=== PATIENT | male | born 1950 | race Caucasian/White ===

== ENCOUNTER 2020-08-23 08:18 | Outpatient (CLI) | payer OTHER, SELFPAY ==
--- NOTE | 2020-08-23 08:22 | NM_ITS ---
WS: [id number] NUCLEAR MEDICINE WHOLE BODY BONE SCAN HISTORY: PROSTATE CANCER COMPARISON: None available. TECHNIQUE: The patient was injected with 25.6 mCi of Technetium 99m HDP and serial whole-body scintig shayy have been performed with anterior and posterior images. Mild degenerative changes at the before meals and glenohumeral joints and the knee joints. There are no areas of moderate uptake within the ribs or spine to suggest metastatic disease. Focal area of mor e intense uptake in the RIGHT C7 facet joint is also probably degenerative. Normal soft tissue uptake . Both kidneys are identified. NM/NM bone scan whole body* [id number] IMPRESSION: No evidence for metastatic bone disease.
== END 2020-08-23 08:19 | disposition home or self-care (01) ==
LOC: RAD 08:20
PROVIDERS: PCP Family Medicine; Visit Provider Internal Medicine Hematology & Oncology
DX: C61 Malignant neoplasm of prostate (principal)
CPT/HCPCS: 78306; A9561

== ENCOUNTER 2020-08-23 11:00 | Outpatient (RCR) | payer OTHER, SELFPAY ==
[2020-08-09 12:37] LABS: Basophils % 0.4 %; Eosinophils # 0.4 10^3/uL (0.0-0.8); Eosinophils % 4.7 %; Hematocrit 46.4 % (42.0-52.0); Hemoglobin 16.3 g/dL (11.7-16.6); Lymphocytes # 1.8 10^3/uL (0.8-4.8); Mean Corpuscular HGB Conc 35.1 g/dL (30.0-36.0); Mean Corpuscular Hemoglobin 32.7 pg (28.0-34.0); Mean Corpuscular Volume 93.2 fL (80-94); Mean Platelet Volume 10.6 fL (7.4-10.4); Monocytes # 0.7 10^3/uL (0.2-0.9); Monocytes % 8.7 %; Neutrophils # 4.91 10^3/uL (1.8-7.7); Neutrophils % 62.8 %; Nucleated Red Blood Cells % 0 %; Platelet Count 241 10^3/cmm (130-400); Red Blood Count 4.98 10^6/uL (4.1-5.3); Red Cell Distribution Width 12.2 % (12.1-15.1); White Blood Count 7.8 10^3/uL (4.0-10.0)
[2020-08-09 13:02] LABS: Testosterone Total 642.3 ng/dL (193-740)
[2020-08-09 13:13] LABS: Alanine Aminotransferase 221 U/L (0-41); Albumin Level 4.5 g/dL (3.5-5.2); Alkaline Phosphatase 80 IU/L (40-130); Anion Gap 13.7 (5-19); Aspartate Amino Transferase 123 U/L (0-40); Blood Urea Nitrogen 10 mg/dL (8-23); Carbon Dioxide 29 mmol/L (22-29); Chloride 98 mmol/L (98-107); Globulin 2.8 g/dL (1.3-4.6); Glucose 155 mg/dL (65-115); Osmolality Calculated 286 mOsm/kg (285-295); Potassium 3.7 mmol/L (3.5-5.1); Sodium 137 mmol/L (136-145); Total Bilirubin 0.9 mg/dL (0.15-1.2); Total Protein 7.3 g/dL (6.6-8.7)
--- NOTE | 2020-08-09 15:19 | ONC CON_ITS ---
Dr. Aden New Patient Note Patient: Barrera Menendez Unit #: [id number]: 1950 Dicatated By: Ada Aden M.D.Date of Visit: Aug 09, 2020 Onc MED New Patient/Consult Referring Physician: Stephen Marin History of Present Illness: Mr. Barrera Menendez, is a 70-year-old gentleman with a history of mildly elevated PSA in the range of 4+ eventually underwent ultrasound-guided prostate biopsy on June 04, 2020 which showed high-grade prostatic acinar adenocarcinoma Van score 9 group grade 5, 3 cores from left prostate base showed 5 to 80% involvement Van score 4+5 and 3 cores from left mid gland shows 60 to 90% involvement with Fatmata score 4+5 again group grade 5 and 2 cores from right apex shows 5 to 50% involvement with adenocarcinoma, Fatmata score 4+5 group grade 5 e.g. T2c, NX, very high risk (Fatmata score 4+5, group grade 5 in 8 cores) CT scan of abdomen pelvis was done on July 27, 2020 which showed no evidence of retroperitoneal lymphadenopathy and no other abnormality seen Patient denies any history of hematuria except one episode after the prostate biopsy, no dysuria, no bony pains, no weight loss. Patient has history of heavy alcohol use but quit drinking in 1993 now occasional drinker. No history of smoking. No family history of prostate cancer but patient has 2 boys, healthy otherwise. Past Medical History: There is no documented medical history. Past Surgical History: Mr. Menendez's surgical/procedural history consists of right leg surgery. Medications: amLODIPine Besylate 1 Tablet (of 10 mg) Oral daily, Aspirin 1 Tablet (of 325 mg) Oral daily, Atenolol 1 Tablet (of 100 mg) Oral daily, hydroCHLOROthiazide 0.5 Tablet (of 25 mg) Oral daily, Losartan Potassium 1 Tablet (of 100 mg) Oral daily Allergies: Colestipol HCl, Gemfibrozil, Lisinopril, Lovastatin, Pravastatin Sodium, and Simvastatin. Social History: Mr. Menendez is . Mr. Menendez has never smoked. He has no history of drinking. Family History: There is no documented family history. Review Of Symptoms: Constitutional - Appetite is good and weight is stable. No fever, night sweats, or hot flashes. Energy level, ENMT - Positive for sinus congestion/drainage. No mouth sores. No sore throat or difficulty swallowing, Hematologic/Lymphatic - Positive for easy bruising and bleeding, Respiratory - No shortness of breath. Positive for cough. No pleuritic pain or hemoptysis, Cardiovascular - No angina pain. No palpitations, Gastrointestinal - No nausea or vomiting. No heartburn or acid reflux. No diarrhea or constipation. No blood in the stool or black stools, Genitourinary (M) - No dysuria or hematuria. Positive for urinary frequency. No urgency or incontinence, Musculoskeletal - No joint or bone pain, Neurologic - No headache or dizziness. No numbness or tingling. No other focal neurologic symptoms, Psychiatric - No anxiety or depression. No insomnia. Vital Signs: Performed on Aug 09, 2020 10:56: 0, 34.18 (HIGH), 2.25 sq.m, 70 in, 97 %, 62 /min, 18 /min, 198/96 mm(hg) (HIGH), 97.4 F (LOW), and 238.2 lbs (HIGH). Performance Status: 0 - Fully active, able to carry on all predisease activities without restrictions. (ECOG) Physical Examination: ENMT - No mouth sores, no thrush, no jaundice, Respiratory - Lungs are clear to auscultation, Cardiovascular - Regular rate and rhythm of heart, Abdomen - Soft, bowel sounds present, Extremities - No visible edema or rash. Lab/Imaging: Most recent lab results are not available for this patient. Impression: Very high risk prostate cancer per ultrasound-guided prostate gland biopsy done on June 04, 2020 which showed prostatic acinar adenocarcinoma involving left base, 3 cores, Van score 4+5 group grade 5. Left middle lobe, 3 cores Fatmata score 4+5, group grade 5. Right apex 2 cores, Fatmata score 4+5 group grade 5 e.g. T2c, very high risk Van score 9 with a group grade 5 and 8 cores PSA at time of diagnosis 4.61 CT scan of abdomen done on July 27, 2020 showed no evidence of pelvic lymphadenopathy Plan: Discussed with patient regarding his disease status and treatment options, being very high risk group e.g. Fatmata score 9, and grade group 5 and more than 4 cores and bilateral prostate gland involvement T2c, he would be a candidate for neoadjuvant therapy with ADT with Casodex/Zoladex followed by concurrent radiation therapy followed by Zoladex for 2 to 3 years and if tolerated, would consider adding Taxotere after concurrent ADT/radiation is completed. All the side effects possible benefits associated with ADT were discussed including but not limited to hot flashes, mood swings, gynecomastia, generalized weakness and fatigue, bone demineralization, fluid retention, weight gain were mentioned further teaching will done by chemotherapy nurse. We will give him prescription for Casodex 50 mg p.o. daily which he will continue in neoadjuvant fashion as well as during radiation therapy and will also obtain approval from insurance for Zoladex which he will get every 3 months. In the meantime we will also obtain bone scan to complete staging work-up and consider next gen sequencing. In the meantime, we will obtain baseline testosterone, PSA and CBC and CMP and then patient to return to clinic in 1 month after Zoladex injection with CBC CMP and PSA Signed By: Ada Aden M.D. <<Signature on File>>
--- NOTE | 2020-08-10 13:48 | N.ONRAD NP_ITS ---
Radiation Oncology Consultation Patient Name: Barrera Menendez Date of : 1950 Date of Service: 08/10/2020 Attending Physician: Reji Vo M.D. Barrera Menendez was seen in consultation this afternoon at the request of Dino Benton M.D. for consideration of prostate radiotherapy for the management of his recently diagnosed prostate cancer. He initially was identified to have an elevated PSA level (4.6 ng/mL) in January 2020. He was referred to the [facility] Department of Urology (medical records were requested and personally reviewed). A free PSA was within normal limits (14%) and a digital rectal exam did not identify prostate induration or nodularities. A transrectal ultrasound-guided biopsy of the prostate was performed on May 31, 2020. The prostatic volume was 28g without suspicious hypoechogenicity. Pathology diagnosed an acinar adenocarcinoma of the prostate gland (Fatmata score 4+5 involving the left base, left mid gland, and right apex; malignancy comprised 8 of 20 cores). An abdominopelvic CT ordered on July 27, 2019 failed to demonstrate pelvic lymphadenopathy or metastatic disease. A PSA and testosterone levels (independently canvassed in [employer]) obtained on August 09, 2020 were 6.2 ng/mL and 642.3 ng/dL. The patient presents for radiotherapeutic options. I discussed with Mr. Menendez the AJCC clinical stage IIIC (T1CN0) very high-risk stratification corresponding to his prostate cancer. I also reviewed the National Comprehensive Cancer Network Guidelines recommending androgen deprivation therapy, external beam radiotherapy with or without brachytherapy and consideration for docetaxel chemotherapy. The admonition by the NCCN was established by the RTOG 0521 trial that enrolled patients with high-risk non-metastatic prostate cancer to receive androgen suppression plus radiotherapy with or without adjuvant docetaxel chemotherapy. This study demonstrated improved overall survival and disease-free survival in the chemotherapy arm. I also reviewed GETUG???12 study which also enrolled high-risk localized prostate cancer patients to androgen suppression and docetaxel chemotherapy with estramustine or androgen suppression alone. Updated results published in abstract form continued to demonstrate a relapse free survival with the administration of chemotherapy. Prior to commencement of radiotherapy, neoadjuvant total androgen suppression (Zoladex and Casodex) will be prescribed. I anticipate a 7-1/2 week course of pelvic and prostate radiotherapy. Prior to implementation of treatment, a radiotherapy planning CT scanner will be obtained to delineate the target volumes. I also discussed potential adverse events related to pelvic radiotherapy. The patient has verbalized understanding would like to proceed as advised. Signed by: Dr. Reji Vo 10/10/2020 8:48:46 AM
== END 2020-09-03 23:59 | disposition home or self-care (01) ==
LOC: RAD 11:00
PROVIDERS: Internal Medicine Hematology & Oncology; Family Provider Nurse Practitioner Family; PCP Family Medicine; Visit Provider Radiology Radiation Oncology
DX: C61 Malignant neoplasm of prostate (principal)
CPT/HCPCS: 80053; 84153; 84403; 85025; 99205; 99214

== ENCOUNTER 2020-09-14 09:40 | Outpatient (CLI) | payer OTHER, SELFPAY ==
[2020-09-14 10:35] LABS: Basophils % 0.2 %; Eosinophils # 0.4 10^3/uL (0.0-0.8); Hemoglobin 15.8 g/dL (11.7-16.6); Lymphocytes # 1.4 10^3/uL (0.8-4.8); Lymphocytes % 22.6 %; Mean Corpuscular HGB Conc 35.9 g/dL (30.0-36.0); Mean Corpuscular Hemoglobin 32.7 pg (28.0-34.0); Mean Corpuscular Volume 91.1 fL (80-94); Mean Platelet Volume 11.1 fL (7.4-10.4); Monocytes # 0.6 10^3/uL (0.2-0.9); Monocytes % 9.1 %; Neutrophils # 3.72 10^3/uL (1.8-7.7); Neutrophils % 61.8 %; Nucleated Red Blood Cells % 0 %; Platelet Count 210 10^3/cmm (130-400); Red Blood Count 4.83 10^6/uL (4.1-5.3); Red Cell Distribution Width 11.7 % (12.1-15.1)
[2020-09-14 11:21] LABS: Testosterone Total 801.9 ng/dL (193-740)
[2020-09-14 11:33] LABS: Alanine Aminotransferase 355 U/L (0-41); Albumin Level 4.4 g/dL (3.5-5.2); Alkaline Phosphatase 91 IU/L (40-130); Aspartate Amino Transferase 159 U/L (0-40); Blood Urea Nitrogen 10 mg/dL (8-23); Calcium 8.9 mg/dL (8.5-10.5); Carbon Dioxide 24 mmol/L (22-29); Chloride 101 mmol/L (98-107); Globulin 2.7 g/dL (1.3-4.6); Glucose 166 mg/dL (65-115); Osmolality Calculated 285 mOsm/kg (285-295); Sodium 136 mmol/L (136-145); Total Bilirubin 0.7 mg/dL (0.15-1.2); Total Protein 7.1 g/dL (6.6-8.7)
[2020-09-14 11:35] LABS: Anion Gap 14.8 (5-19); Potassium 3.8 mmol/L (3.5-5.1)
[2020-09-14] MEDS: lidocaine 1% INJ 20 mL INJECTION (12:20)
[2020-09-14] MEDS: goserelin acetate 10.8 mg Implant IM (12:30)
--- NOTE | 2020-09-27 09:16 | ONC FU_ITS ---
[facility] Patient Note Patient: Barrera Menendez Unit #: [id number]: 1950 Dictated By: Familia PedrazaDate of Visit: Sep 14, 2020 Onc MED Follow-Up/Prog Note Chief Complaint: Prostate cancer History of Present Illness: Mr. Menendez is a 70-year-old gentleman with a history of mildly elevated PSA in the range of 4+. He eventually underwent ultrasound-guided prostate biopsy on June 04, 2020 which showed high-grade prostatic acinar adenocarcinoma Fatmata score 9, group grade 5. Three cores from left prostate base showed 5 to 80% involvement- [place] score 4+5 and 3 cores from left mid gland shows 60 to 90% involvement with Fatmata score 4+5 again group grade 5. Two cores from right apex shows 5 to 50% involvement with adenocarcinoma, [place] score 4+5 group grade 5 e.g. T2c, NX, very high risk ([place] score 4+5, group grade 5 in [address] CT scan of abdomen pelvis was done on July 27, 2020 which showed no evidence of retroperitoneal lymphadenopathy and no other abnormality seen. Mr Menendez denies any history of hematuria except one episode after the prostate biopsy, no dysuria, no bony pains, no weight loss. Patient has history of heavy alcohol use but quit drinking in 1993 now occasional drinker. No history of smoking. No family history of prostate cancer but patient has 2 boys, healthy otherwise. Mr Menendez follows with Dr Aden for management of his prostate cancer. He has been advised to pursue androgen deprivation with Casodex and Zoladex. He is here today for his first dose of Zoladex. He states he has been on the Casodex now for 2 weeks. He denies any new concerns. He denies any hot flashes. He denies any nausea or vomiting. His activity is good. His energy is fair and his appetite is good. He denies any diarrhea or constipation. He has had no neuropathy symptoms. He denies any bowel or bladder changes. He has had no hematuria. He denies any shortness of breath or cough. His ECOG is 1. Past Medical History: Hypertension Past Surgical History: Colonoscopy Right leg surgery Allergies: Colestipol HCl, Gemfibrozil, Lisinopril, Lovastatin, Pravastatin Sodium, and Simvastatin. Medications: amLODIPine Besylate 1 Tablet (of 10 mg) Oral daily Aspirin 1 Tablet (of 325 mg) Oral daily Atenolol 1 Tablet (of 100 mg) Oral daily hydroCHLOROthiazide 0.5 Tablet (of 25 mg) Oral daily Losartan Potassium 1 Tablet (of 100 mg) Oral daily Family History: Social History: Mr. Menendez is . Mr. Menendez has never smoked. He quit drinking 10 years ago. Review Of Symptoms: Constitutional Denies fevers, chills, night sweats, excessive fatigue or weight loss. Allergic/Immunologic No reactions. Eyes Denies significant visual changes. No diplopia. No amaurosis. ENMT Denies changes in hearing, sore throat, mouth sores, difficulty or changes in swallowing ability, and/or sinus drainage. Hematologic/Lymphatic Denies easy bruising or bleeding. The patient denies any tender or palpable lymph nodes. Respiratory Denies dyspnea on exertion, chest pain, cough or hemoptysis. Denies orthopnea. Cardiovascular Denies anginal chest pain, palpitations or orthopnea. Gastrointestinal Denies nausea, vomiting, diarrhea, GI bleeding, or constipation. Denies change in bowel habits and/or stool color, no heartburn or early satiety. Genitourinary (M) Denies hematuria, dysuria, increased frequency, urgency, hesitancy or incontinence. Musculoskeletal Denies joint pain, swelling or redness. No decreased range of motion. Integumentary Denies chronic rashes, inflammation, ulcerations or skin changes. Neurologic Denies headache, blurred vision, and no areas of focal weakness or numbness. Normal gait. No sensory problems. Psychiatric Denies insomnia, depression, keily or mood swings. Vital Signs: Performed on Sep 14, 2020 11:48 Height - 70.00 in Weight - 242.4 lbs (HIGH) BSA - 2.27 sq.m BMI - 34.78 (HIGH) Temperature - 97.3 F (LOW) Pulse - 55 /min (LOW) Respiration - 18 /min BP - 157/89 mm(hg) (HIGH) O2 Sat - 97 % Pain - 0,0 - Fully active, able to carry on all predisease activities without restrictions. (ECOG) Physical Examination: Constitutional Alert, oriented, no acute distress. Skin pink, warm and dry. Head Normocephalic; atraumatic. Eyes Conjunctivae and sclerae are clear and without icterus. Pupils are reactive and equal. Neck Supple without masses or thyromegaly. No jugular venous distension. Hematologic/Lymphatic No petechiae or purpura. No tender or palpable lymph nodes in the cervical or supraclavicular areas. Respiratory Lungs are clear to auscultation without rhonchi or wheezing. Cardiovascular Regular rate and rhythm of heart without murmurs,clicks, gallops or rubs. Abdomen Non-tender, non-distended, no masses or ascites. Good bowel sounds noted in all quads. No guarding or rebound tenderness. No pulsatile masses. Back/Spine Non-tender to palpation. Extremities No visible deformities, no cyanosis, clubbing or edema. Musculoskeletal No tenderness or swelling, normal range of motion without obvious weakness. Integumentary No rashes or lesions. Neurologic No sensory or motor deficits, normal cerebellar function, normal gait. Psychiatric Alert and oriented times three. Coherent speech. Verbalizes understanding of our discussions today. Laboratory:Test performed on Sep 14, 2020 09:59 Sodium 136 mmol/L Testosterone, Total 801.9 ng/dL Potassium 3.8 mmol/L Chloride 101 mmol/L CO2 24 mmol/L Anion Gap 14.8 BUN 10 mg/dL Creatinine 1.2 mg/dL Cr Clearance (Est) 87.8100 mL/min Glucose 166 mg/dL Osmolality - Calculated 285 mOsm/kg Calcium 8.9 mg/dL Protein, Total 7.1 g/dL Albumin 4.4 g/dL Globulin 2.7 g/dL Bilirubin, Total 0.7 mg/dL ALT (SGPT) 355 U/L AST (SGOT) 159 U/L Alkaline Phosphatase 91 IU/L WBC 6.0 10 3/uL RBC 4.83 10 6/uL HGB 15.8 g/dL HCT 44.0 % MCV 91.1 fL MCH 32.7 pg MCHC 35.9 g/dL RDW 11.7 % Platelet Count 210 10 3/cmm MPV 11.1 fL Neutrophils 3.72 10 3/uL Lymphocytes 1.4 10 3/uL Monocytes 0.6 10 3/uL Eosinophils 0.4 10 3/uL Basophils 0.0 10 3/uL Neutrophil % 61.8 % Lymphocyte % 22.6 % Monocyte % 9.1 % Eosinophil % 6.0 % Basophils % 0.2 % NRBC % 0 % PSA 3.140 ng/mL Impression: Very high risk prostate cancer per ultrasound-guided prostate gland biopsy done on June 04, 2020 which showed prostatic acinar adenocarcinoma involving left base, 3 cores, Fatmata score 4+5 group grade 5. Left middle lobe, 3 cores [place] score 4+5, group grade 5. Right apex 2 cores, Fatmata score 4+5 group grade 5 e.g. T2c, very high risk [place] score 9 with a group grade 5 and 8 cores PSA at time of diagnosis 4.61 CT scan of abdomen done on July 27, 2020 showed no evidence of pelvic lymphadenopathy Plan: PROBLEMS ADDRESSED TODAY 1. High risk prostate cancer A. Dr Aden discussed with Mr Menendez his disease status and treatment options. Being very high risk group e.g. [place] score 9, and grade group 5 and more than 4 cores and bilateral prostate gland involvement T2c, he would be a candidate for neoadjuvant therapy with ADT with Casodex/Zoladex followed by concurrent radiation therapy followed by Zoladex for 2 to 3 years and if tolerated, would consider adding Taxotere after concurrent ADT/radiation is completed. He did have a negative bone scan in August 2020. B Dr Aden did give him prescription for Casodex 50 mg p.o. daily which he will continue in neoadjuvant fashion as well as during radiation therapy. C. He will begin Zoladex today as he has been on the Casodex for 2 weeks now. D. In the meantime we will also consider next gen sequencing per Dr Aden's last office note. E. Today's labs reviewed in detail and discussed with . Mrs. Menendez and a copy was given to him. WBC 6.0, hemoglobin 15.8, platelets 210,000 ANC is 3720. Potassium 3.8 creatinine 1.2 ALT is 355 AST is 159 alk phos 91 PSA is 3.14 compared to 6.22 on August 09, 2020. His LFTs have been intermittently elevated. 2. Followup Plan A. We will plan to see him back in [address] Aden's orders with CBC CMP PSA and testosterone???total. B. Mr Menendez was instructed to contact us in the interim should questions or problems arise. C. Total time spent in review of patient's records prior to his visit, Discussion of the current treatment plan, side effect identification and management as well as post visit documentation was 58 minutes. D. The patient and family were informed of the treatment plan and specific drugs were discussed. We also discussed how the medication works and identified common side effects including hot flashes, elevated triglycerides, headache, dizziness, hypertension, urticaria, flushing, fatigue, nausea, diarrhea, constipation, joint/muscle pain, heartburn, palpitations, alopecia is reported at < 5%. We discussed that they certainly need to let us know before taking any antioxidants or herbal or further dietary supplements, as we are unsure of how these agents react with the treatment plan and we request that they avoid these products for now. They are informed that it is okay to take the multivitamins. They verbally state that they understand to take all medications as directed by the provider unless otherwise indicated. Instructions for oral care with baking soda and salt water rinses as well as a guide for use of [id number] medication were provided with the treatment plan. They were given specific drug information. They have no questions and verbalized understanding and are willing to proceed with treatment at this time. Signed By: Familia Pedraza-, CNP Ada Aden MD <<Signature on File>>
== END 2020-09-14 09:41 | disposition home or self-care (01) ==
LOC: ONCMED 09:41
PROVIDERS: Internal Medicine Hematology & Oncology; Family Provider Nurse Practitioner Family; PCP Family Medicine; Visit Provider Nurse Practitioner
DX: C61 Malignant neoplasm of prostate (principal); R79.89 Other specified abnormal findings of blood chemistry; Z79.818 Long term (current) use of other agents affecting estrogen receptors and estrogen levels; Z79.899 Other long term (current) drug therapy
CPT/HCPCS: 80053; 84153; 84403; 85025; 96372; 96402; 99215; J9202

== ENCOUNTER 2020-09-27 05:39 | Outpatient (CLI) | payer OTHER, SELFPAY ==
--- NOTE | 2020-09-27 09:42 | ONC FU_ITS ---
[facility] Patient Note Patient: Barrera Menendez Unit #: [id number]: 1950 Dictated By: Familia PedrazaDate of Visit: Sep 27, 2020 Onc MED Follow-Up/Prog Note Chief Complaint: Prostate cancer History of Present Illness: Mr. Menendez is a 70-year-old gentleman with a history of mildly elevated PSA in the range of 4+. He eventually underwent ultrasound-guided prostate biopsy on June 04, 2020 which showed high-grade prostatic acinar adenocarcinoma Fatmata score 9, group grade 5. Three cores from left prostate base showed 5 to 80% involvement- Fountain score 4+5 and 3 cores from left mid gland shows 60 to 90% involvement with Fatmata score 4+5 again group grade 5. Two cores from right apex shows 5 to 50% involvement with adenocarcinoma, Fountain score 4+5 group grade 5 e.g. T2c, NX, very high risk (Fountain score 4+5, group grade 5 in [address] scan of abdomen pelvis was done on July 27, 2020 which showed no evidence of retroperitoneal lymphadenopathy and no other abnormality seen. Mr Menendez denies any history of hematuria except one episode after the prostate biopsy, no dysuria, no bony pains, no weight loss. Patient has history of heavy alcohol use but quit drinking in 1993 now occasional drinker. No history of smoking. No family history of prostate cancer but patient has 2 boys, healthy otherwise. Mr Menendez follows with Dr Aden for management of his prostate cancer. He has been advised to pursue androgen deprivation with Casodex and Zoladex. He began Casodex 50 mg around August 31, 2020 and his first dose of Zoladex was on September 14, 2020. Mr. Menendez is here today for a unscheduled visit. Mrs. Menendez called yesterday saying that since he started the Casodex and Zoladex he had a knot develop on the back of his head . They are unable to see his primary care is at his [place] in [place] and they cannot get him in for quite some time . He complained that the spot was very tender making the back of his head sore. And requested to be seen. He is here this morning. He denies any fever or chills. He has had no trauma. He states that discomfort came up all of a sudden. The back of his head has been tender and somewhat down in his neck. He denies any trouble swallowing. He is had no other lymphadenopathy. He denies any nausea or vomiting. He is tolerating the Casodex well. He denies any hot flashes. States he had about 2 days of hot flashes and this resolved and has not recurred. He has no other concerns. His ECOG is 0. Past Medical History: Hypertension Past Surgical History: Colonoscopy Right leg surgery Allergies: Colestipol HCl, Gemfibrozil, Lisinopril, Lovastatin, Pravastatin Sodium, and Simvastatin. Medications: amLODIPine Besylate 1 Tablet (of 10 mg) Oral daily Aspirin 1 Tablet (of 325 mg) Oral daily Atenolol 1 Tablet (of 100 mg) Oral daily hydroCHLOROthiazide 0.5 Tablet (of 25 mg) Oral daily Losartan Potassium 1 Tablet (of 100 mg) Oral daily Family History: Social History: Mr. Menendez is . Mr. Menendez has never smoked. He quit drinking 10 years ago. Review Of Symptoms: Constitutional Denies fevers, chills, night sweats, excessive fatigue or weight loss. Allergic/Immunologic No reactions. Eyes Denies significant visual changes. No diplopia. No amaurosis. ENMT Denies changes in hearing, sore throat, mouth sores, difficulty or changes in swallowing ability, and/or sinus drainage. Hematologic/Lymphatic Denies easy bruising or bleeding. The patient denies any tender or palpable lymph nodes. Respiratory Denies dyspnea on exertion, chest pain, cough or hemoptysis. Denies orthopnea. Cardiovascular Denies anginal chest pain, palpitations or orthopnea. Gastrointestinal Denies nausea, vomiting, diarrhea, GI bleeding, or constipation. Denies change in bowel habits and/or stool color, no heartburn or early satiety. Genitourinary (M) Denies hematuria, dysuria, increased frequency, urgency, hesitancy or incontinence. Musculoskeletal Denies joint pain, swelling or redness. No decreased range of motion. Integumentary Denies chronic rashes, inflammation, ulcerations or skin changes. Neurologic Denies headache, blurred vision, and no areas of focal weakness or numbness. Normal gait. No sensory problems. Psychiatric Denies insomnia, depression, keily or mood swings. Vital Signs: Performed on Sep 27, 2020 08:56 Height - 70.00 in Weight - 242.6 lbs (HIGH) BSA - 2.27 sq.m BMI - 34.81 (HIGH) Temperature - 97.4 F (LOW) Pulse - 67 /min Respiration - 18 /min BP - 166/91 mm(hg) (HIGH) O2 Sat - 97 % Pain - 7 Fatigue - 4,0 - Fully active, able to carry on all predisease activities without restrictions. (ECOG) Physical Examination: Constitutional Alert, oriented, no acute distress. Skin pink, warm and dry. Head Normocephalic; atraumatic. Red raised nodule that is approximately half a centimeter in diameter with underlying erythema and firmness is approximately 2 cm in diameter. It is tender on palpation. There is no active exudate. It is noted to be scabbed but he states he is picking at it . There is no warmth or streaking at present. Eyes Conjunctivae and sclerae are clear and without icterus. Pupils are reactive and equal. Neck Supple without masses or thyromegaly. No jugular venous distension. Hematologic/Lymphatic No petechiae or purpura. No tender or palpable lymph nodes in the cervical or supraclavicular areas. Back/Spine Non-tender to palpation. Extremities No visible deformities, no cyanosis, clubbing or edema. Musculoskeletal No tenderness or swelling, normal range of motion without obvious weakness. Integumentary No rashes or lesions. Neurologic No sensory or motor deficits, normal cerebellar function, normal gait. Psychiatric Alert and oriented times three. Coherent speech. Verbalizes understanding of our discussions today. Laboratory:Test performed on Sep 14, 2020 09:59 Sodium 136 mmol/L Testosterone, Total 801.9 ng/dL Potassium 3.8 mmol/L Chloride 101 mmol/L CO2 24 mmol/L Anion Gap 14.8 BUN 10 mg/dL Creatinine 1.2 mg/dL Cr Clearance (Est) 87.8100 mL/min Glucose 166 mg/dL Osmolality - Calculated 285 mOsm/kg Calcium 8.9 mg/dL Protein, Total 7.1 g/dL Albumin 4.4 g/dL Globulin 2.7 g/dL Bilirubin, Total 0.7 mg/dL ALT (SGPT) 355 U/L AST (SGOT) 159 U/L Alkaline Phosphatase 91 IU/L WBC 6.0 10 3/uL RBC 4.83 10 6/uL HGB 15.8 g/dL HCT 44.0 % MCV 91.1 fL MCH 32.7 pg MCHC 35.9 g/dL RDW 11.7 % Platelet Count 210 10 3/cmm MPV 11.1 fL Neutrophils 3.72 10 3/uL Lymphocytes 1.4 10 3/uL Monocytes 0.6 10 3/uL Eosinophils 0.4 10 3/uL Basophils 0.0 10 3/uL Neutrophil % 61.8 % Lymphocyte % 22.6 % Monocyte % 9.1 % Eosinophil % 6.0 % Basophils % 0.2 % NRBC % 0 % PSA 3.140 ng/mL Impression: Very high risk prostate cancer per ultrasound-guided prostate gland biopsy done on June 04, 2020 which showed prostatic acinar adenocarcinoma involving left base, 3 cores, Fountain score 4+5 group grade 5. Left middle lobe, 3 cores Fatmata score 4+5, group grade 5. Right apex 2 cores, Fountain score 4+5 group grade 5 e.g. T2c, very high risk Fountain score 9 with a group grade 5 and 8 cores PSA at time of diagnosis 4.61 CT scan of abdomen done on July 27, 2020 showed no evidence of pelvic lymphadenopathy Plan: PROBLEMS ADDRESSED TODAY 1. Nodule/cyst on posterior scalp. Most likely an infected hair follicle A. We will start him on Keflex 500 3 times daily for 7 days???prescription sent to [facility] employee pharmacy B. He has been advised to contact us by Friday if he is not seen in some improvement or plan on seeing us on Friday for further assessment if the nodule is still persistent. 2. High risk prostate cancer A. Dr Aden discussed with Mr Menendez his disease status and treatment options. Being very high risk group e.g. Fatmata score 9, and grade group 5 and more than 4 cores and bilateral prostate gland involvement T2c, he would be a candidate for neoadjuvant therapy with ADT with Casodex/Zoladex followed by concurrent radiation therapy followed by Zoladex for 2 to 3 years and if tolerated, would consider adding Taxotere after concurrent ADT/radiation is completed. He did have a negative bone scan in August 2020. B Dr Aden did give him prescription for Casodex 50 mg p.o. daily which he will continue in neoadjuvant fashion as well as during radiation therapy. C. He began Zoladex on 09/14/2020 as he had been on the Casodex for 2 weeks prior. D. In the meantime we will also consider next gen sequencing per Dr Aden's last office note. 3. Followup Plan A. We will plan to see him back as scheduled with CBC CMP PSA and testosterone???total. I did tell him that would like to see him on Friday for his nodules not improving. B. Mr Menendez was instructed to contact us in the interim should questions or problems arise. Signed By: Familia Pedraza-, AOCNP Ada Aden MD <<Signature on File>>
== END 2020-09-27 05:40 | disposition home or self-care (01) ==
LOC: ONCMED 05:43
PROVIDERS: Family Provider Nurse Practitioner Family; PCP Family Medicine; Visit Provider Nurse Practitioner
DX: R22.0 Localized swelling, mass and lump, head (principal); C61 Malignant neoplasm of prostate; Z79.899 Other long term (current) drug therapy
CPT/HCPCS: 99214

== ENCOUNTER 2020-11-03 05:47 | Outpatient (RCR) | payer OTHER, SELFPAY ==
--- NOTE | 2020-10-11 | CT_ITS ---
Radiation Therapy Planning CT images; total exam DLP: 1956.60 mGy-cm MTDD
--- NOTE | 2020-10-16 10:26 | ONCRAD TMN_ITS ---
Radiation Oncology Treatment Management Note Patient Name: Barrera Menendez Date of : 1950 Date of Service: 10/16/2020 Attending Physician: Reji Vo M.D. 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 His pretreatment PSA was 6.2 ng/mL. A TRUS biopsy identified an adenocarcinoma of the prostate gland (Fatmata???s score 4+5=9). The patient was prescribed Casodex (August 09, 2020) and administered neoadjuvant gonadotropin-releasing hormone agonist therapy (Zoladex ??? September 14, 2020). The patient has received 2 Gy of a prescribed 46 Alfredo to the prostate and regional lymph nodes with an intensity modulated radiotherapy plan utilizing a step and shoot treatment technique. An additional 32 Alfredo will be delivered to the prostate gland subsequent to the initial green. He has received neoadjuvant hormonal therapy. Upon review of systems, he denied any gastrointestinal or genitourinary complaints related to radiotherapy. On physical examination, the patient weighed 241 lbs. His temperature was 97.4 ???F with a blood pressure of 166/82 mmHg. The pulse was 58 bpm and his respiratory rate was 18. There was no erythema within the treatment green. Continue pelvic radiotherapy as planned. Signed by: Dr. Reji Vo 10/16/2020 10:25:33 AM
[2020-10-18 10:49] LABS: Basophils % 0.2 %; Eosinophils # 0.3 10^3/uL (0.0-0.8); Eosinophils % 5.5 %; Hematocrit 41.6 % (42.0-52.0); Hemoglobin 14.8 g/dL (11.7-16.6); Lymphocytes % 19.2 %; Mean Corpuscular HGB Conc 35.6 g/dL (30.0-36.0); Mean Corpuscular Hemoglobin 32.4 pg (28.0-34.0); Mean Platelet Volume 10.6 fL (7.4-10.4); Monocytes # 0.5 10^3/uL (0.2-0.9); Monocytes % 9.2 %; Neutrophils # 3.56 10^3/uL (1.8-7.7); Neutrophils % 65.5 %; Nucleated Red Blood Cells % 0 %; Platelet Count 203 10^3/cmm (130-400); Red Blood Count 4.57 10^6/uL (4.1-5.3); Red Cell Distribution Width 11.9 % (12.1-15.1); White Blood Count 5.4 10^3/uL (4.0-10.0)
[2020-10-18 11:14] LABS: Alanine Aminotransferase 277 U/L (0-41); Albumin Level 4.7 g/dL (3.5-5.2); Alkaline Phosphatase 88 IU/L (40-130); Aspartate Amino Transferase 143 U/L (0-40); Blood Urea Nitrogen 19 mg/dL (8-23); Calcium 8.9 mg/dL (8.5-10.5); Carbon Dioxide 26 mmol/L (22-29); Chloride 92 mmol/L (98-107); Globulin 2.5 g/dL (1.3-4.6); Glucose 175 mg/dL (65-115); Osmolality Calculated 277 mOsm/kg (285-295); Sodium 130 mmol/L (136-145); Testosterone Total 6.2 ng/dL (193-740); Total Bilirubin 0.8 mg/dL (0.15-1.2); Total Protein 7.2 g/dL (6.6-8.7)
[2020-10-18 11:19] LABS: Anion Gap 15.4 (5-19); Potassium 3.4 mmol/L (3.5-5.1)
[2020-10-18 12:29] LABS: Prostate Specific Antigen 0.822 ng/mL (0-4)
--- NOTE | 2020-10-19 09:36 | ONC FU_ITS ---
Dr. Aden follow up note Patient: Barrera Menendez Unit #: [id number]: 1950 Dicatated By: Ada Aden M.D.Date of Visit:Oct 19, 2020 Onc Med Follow-up/Prog Note History of Present Illness: Mr. Menendez is a 70-year-old gentleman with a history of mildly elevated PSA in the range of 4+. He eventually underwent ultrasound-guided prostate biopsy on June 04, 2020 which showed high-grade prostatic acinar adenocarcinoma [place] score 9, group grade 5. Three cores from left prostate base showed 5 to 80% involvement- Fatmata score 4+5 and 3 cores from left mid gland shows 60 to 90% involvement with Fatmata score 4+5 again group grade 5. Two cores from right apex shows 5 to 50% involvement with adenocarcinoma, Fatmata score 4+5 group grade 5 e.g. T2c, NX, very high risk ([place] score 4+5, group grade 5 in [address] CT scan of abdomen pelvis was done on July 27, 2020 which showed no evidence of retroperitoneal lymphadenopathy and no other abnormality seen. Mr Menendez denies any history of hematuria except one episode after the prostate biopsy, no dysuria, no bony pains, no weight loss. Patient has history of heavy alcohol use but quit drinking in 1993 now occasional drinker. No history of smoking.History of fatty liver with abnormal LFTs status post liver biopsy No family history of prostate cancer but patient has 2 boys, healthy otherwise. He has been advised to pursue androgen deprivation with Casodex and Zoladex. He began Casodex 50 mg around August 31, 2020 and his first dose of Zoladex was on September 14, 2020. Came for follow-up, denies any specific complaints, no fever chills, no nausea or vomiting, no diarrhea or constipation as per patient he started radiation therapy recently and tolerating well, occasionally hot flashes otherwise tolerating ADT with Casodex/Zoladex well Medications: amLODIPine Besylate 1 Tablet (of 10 mg) Oral daily, Aspirin 1 Tablet (of 325 mg) Oral daily, Atenolol 1 Tablet (of 100 mg) Oral daily, hydroCHLOROthiazide 0.5 Tablet (of 25 mg) Oral daily, Losartan Potassium 1 Tablet (of 100 mg) Oral daily Allergies: Colestipol HCl, Gemfibrozil, Lisinopril, Lovastatin, Pravastatin Sodium, and Simvastatin. Review of Systems: Review of Systems is not available for this patient. Vital Signs: Performed on Oct 19, 2020 08:56 Height - 70.00 in Weight - 240.8 lbs (LOW) BSA - 2.26 sq.m BMI - 34.55 (HIGH) Temperature - 97.7 F (LOW) Pulse - 68 /min Respiration - 17 /min BP - 185/82 mm(hg) (HIGH) O2 Sat - 98 % Pain - 0 Performance Status: 0 - Fully active, able to carry on all predisease activities without restrictions. (ECOG) Physical Examination: ENMT - No mouth sores, no thrush, no jaundice, Respiratory - Lungs are clear to auscultation, Cardiovascular - Regular rate and rhythm of heart, Abdomen - Soft, bowel sounds present, Extremities - No visible edema. Lab/Imaging: Test performed on Oct 18, 2020 10:35 Sodium 130 mmol/L Testosterone, Total 6.2 ng/dL Potassium 3.4 mmol/L Chloride 92 mmol/L CO2 26 mmol/L Anion Gap 15.4 BUN 19 mg/dL Creatinine 1.1 mg/dL Cr Clearance (Est) 95.16 mL/min Glucose 175 mg/dL Osmolality - Calculated 277 mOsm/kg Calcium 8.9 mg/dL Protein, Total 7.2 g/dL Albumin 4.7 g/dL Globulin 2.5 g/dL Bilirubin, Total 0.8 mg/dL ALT (SGPT) 277 U/L AST (SGOT) 143 U/L Alkaline Phosphatase 88 IU/L WBC 5.4 10 3/uL RBC 4.57 10 6/uL HGB 14.8 g/dL HCT 41.6 % MCV 91.0 fL MCH 32.4 pg MCHC 35.6 g/dL RDW 11.9 % Platelet Count 203 10 3/cmm MPV 10.6 fL Neutrophils 3.56 10 3/uL Lymphocytes 1.0 10 3/uL Monocytes 0.5 10 3/uL Eosinophils 0.3 10 3/uL Basophils 0.0 10 3/uL Neutrophil % 65.5 % Lymphocyte % 19.2 % Monocyte % 9.2 % Eosinophil % 5.5 % Basophils % 0.2 % NRBC % 0 % PSA 0.822 ng/mL Impression: Very high risk prostate cancer per ultrasound-guided prostate gland biopsy done on June 04, 2020 which showed prostatic acinar adenocarcinoma involving left base, 3 cores, [place] score 4+5 group grade 5. Left middle lobe, 3 cores [place] score 4+5, group grade 5. Right apex 2 cores, Fatmata score 4+5 group grade 5 e.g. T2c, very high risk Fatmata score 9 with a group grade 5 and 8 cores PSA at time of diagnosis 4.61 CT scan of abdomen done on July 27, 2020 showed no evidence of pelvic lymphadenopathy Abnormal LFTs due to fatty liver, as per patient biopsy confirmed, now being followed by cancer program consultant Started on neoadjuvant ADT Casodex and Zoladex was added on September 14, 2020 and concurrent radiation therapy was added in the first first week of October 2020 Plan: Discussed with patient regarding his labs white blood count 5.4 hemoglobin 14.8 hematocrit 41.6 platelets 203,000 CMP within normal limit except potassium 3.4 and ALT 277 and AST 143 and his PSA is down to 0.822 Clinically, patient doing well with no new signs symptoms suggestive of disease progression and tolerating ADT with Zoladex/Casodex concurrent with radiation therapy well. His follow-up labs shows excellent response now PSA being subzero As far as mild hypokalemia is concerned, we will give him. KCl 20 mEq p.o. daily for 3 days then as needed, As far as abnormal LFTs concern, as per patient he has a history of fatty liver which was confirmed with a liver biopsy and now being followed by cancer program consultant. Patient will return to clinic in 2 months with CBC CMP and PSA and for next 3 monthly dose of Zoladex in the meantime he will continue daily Casodex and by that time he will conclude his concurrent radiation therapy and we will discuss with him regarding systemic therapy with Taxotere along with extended adjuvant Zoladex for 2 to 3 years. Signed By: Ada Aden M.D. <<Signature on File>>
--- NOTE | 2020-10-23 10:26 | ONCRAD TMN_ITS ---
Radiation Oncology Treatment Management Note Patient Name: Barrera Menendez Date of : 1950 Date of Service: 10/23/2020 Attending Physician: Reji Vo M.D. 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 His pretreatment PSA was 6.2 ng/mL. A TRUS biopsy identified an adenocarcinoma of the prostate gland (Fatmata???s score 4+5=9). The patient was prescribed Casodex (August 09, 2020) and administered neoadjuvant gonadotropin-releasing hormone agonist therapy (Zoladex ??? September 14, 2020). The patient has received 12 Gy of a prescribed 46 Alfredo to the prostate and regional lymph nodes with an intensity modulated radiotherapy plan utilizing a step and shoot treatment technique. An additional 32 Alfredo will be delivered to the prostate gland subsequent to the initial green. He has received neoadjuvant hormonal therapy. Upon review of systems, he denied any gastrointestinal or genitourinary complaints related to radiotherapy. On physical examination, the patient weighed 239 lbs. His temperature was 97.3 ???F with a blood pressure of 161/81 mmHg. The pulse was 57 bpm and his respiratory rate was 18. There was no erythema within the treatment green. Continue pelvic radiotherapy as prescribed. Signed by: Dr. Reji Vo 10/23/2020 10:25:07 AM
--- NOTE | 2020-10-30 10:20 | ONCRAD TMN_ITS ---
Radiation Oncology Treatment Management Note Patient Name: Barrera Menendez Date of : 1950 Date of Service: 10/30/2020 Attending Physician: Reji Vo M.D. 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 His pretreatment PSA was 6.2 ng/mL. A TRUS biopsy identified an adenocarcinoma of the prostate gland (Fatmata???s score 4+5=9). The patient was prescribed Casodex (August 09, 2020) and administered neoadjuvant gonadotropin-releasing hormone agonist therapy (Zoladex ??? September 14, 2020). The patient has received 22 Gy of a prescribed 46 Alfredo to the prostate and regional lymph nodes with an intensity modulated radiotherapy plan utilizing a step and shoot treatment technique. An additional 32 Alfredo will be delivered to the prostate gland subsequent to the initial green. He has received neoadjuvant hormonal therapy. Upon review of systems, he denied any gastrointestinal or genitourinary complaints related to radiotherapy. On physical examination, the patient weighed 236 lbs. His temperature was 97 ???F with a blood pressure of 164/82 mmHg. The pulse was 56 bpm and his respiratory rate was 18. There was no erythema within the treatment green. Continue pelvic radiotherapy as planned. Re-check blood pressure (he did not take this am). Signed by: Dr. Reji Vo 10/30/2020 10:18:43 AM
== END 2020-11-03 23:59 | disposition home or self-care (01) ==
LOC: ONCMED 05:47
PROVIDERS: Internal Medicine Medical Oncology; Absent Provider Radiology Radiation Oncology; Family Provider Nurse Practitioner Family; PCP Family Medicine; Visit Provider Radiology Radiation Oncology
DX: Z51.0 Encounter for antineoplastic radiation therapy (principal); C61 Malignant neoplasm of prostate; R97.20 Elevated prostate specific antigen [PSA]; R59.0 Localized enlarged lymph nodes; Z79.899 Other long term (current) drug therapy
CPT/HCPCS: 36415; 77300; 77301; 77334; 77336; 77338; 77385; 80053; 84153; 84403; 85025; 99215; Q9967

== ENCOUNTER 2020-12-01 05:45 | Outpatient (RCR) | payer OTHER, SELFPAY ==
--- NOTE | 2020-11-06 10:15 | ONCRAD TMN_ITS ---
Radiation Oncology Treatment Management Note Patient Name: Barrera Menendez Date of : 1950 Date of Service: 11/06/2020 Attending Physician: Reji Vo M.D. 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 His pretreatment PSA was 6.2 ng/mL. A TRUS biopsy identified an adenocarcinoma of the prostate gland (Fatmata???s score 4+5=9). The patient was prescribed Casodex (August 09, 2020) and administered neoadjuvant gonadotropin-releasing hormone agonist therapy (Zoladex ??? September 14, 2020). The patient has received 32 Gy of a prescribed 46 Alfredo to the prostate and regional lymph nodes with an intensity modulated radiotherapy plan utilizing a step and shoot treatment technique. An additional 32 Alfredo will be delivered to the prostate gland subsequent to the initial green. He has received neoadjuvant hormonal therapy. Upon review of systems, he denied any gastrointestinal or genitourinary complaints related to radiotherapy. On physical examination, the patient weighed 236 lbs. His temperature was 97 ???F with a blood pressure of 164/82 mmHg. The pulse was 56 bpm and his respiratory rate was 18. There was no erythema within the treatment green. Continue pelvic radiotherapy as prescribed. Signed by: Dr. Reji Vo 11/06/2020 10:14:19 AM
--- NOTE | 2020-11-13 10:28 | ONCRAD TMN_ITS ---
Radiation Oncology Treatment Management Note Patient Name: Barrera Menendez Date of : 1950 Date of Service: 11/13/2020 Attending Physician: Reji Vo M.D. 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 His pretreatment PSA was 6.2 ng/mL. A TRUS biopsy identified an adenocarcinoma of the prostate gland (Fatmata???s score 4+5=9). The patient was prescribed Casodex (August 09, 2020) and administered neoadjuvant gonadotropin-releasing hormone agonist therapy (Zoladex ??? September 14, 2020). The patient has received 42 Gy of a prescribed 46 Alfredo to the prostate and regional lymph nodes with an intensity modulated radiotherapy plan utilizing a step and shoot treatment technique. An additional 32 Alfredo will be delivered to the prostate gland subsequent to the initial green. He has received neoadjuvant hormonal therapy. Upon review of systems, he denied any gastrointestinal or genitourinary complaints related to radiotherapy. On physical examination, the patient weighed 234 lbs. His temperature was 96.8 ???F with a blood pressure of 145/81 mmHg. The pulse was 56 bpm and his respiratory rate was 20. There was no erythema within the treatment green. Continue pelvic radiotherapy as planned. Signed by: Dr. Reji Vo 11/13/2020 10:27:40 AM
--- NOTE | 2020-11-20 10:08 | ONCRAD TMN_ITS ---
Radiation Oncology Treatment Management Note Patient Name: Barrera Menendez Date of : 1950 Date of Service: 11/20/2020 Attending Physician: Reji Vo M.D. 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 His pretreatment PSA was 6.2 ng/mL. A TRUS biopsy identified an adenocarcinoma of the prostate gland (Fatmata???s score 4+5=9). The patient was prescribed Casodex (August 09, 2020) and administered neoadjuvant gonadotropin-releasing hormone agonist therapy (Zoladex ??? September 14, 2020). The patient has received 52 Gy of a prescribed 78 Alfredo to the prostate and seminal vesicles with an intensity modulated radiotherapy plan utilizing a step and shoot treatment technique. The pelvic lymph nodes were treated prior to this phase of radiotherapy. He has received neoadjuvant hormonal therapy. Upon review of systems, he denied any gastrointestinal or genitourinary complaints related to radiotherapy. On physical examination, the patient weighed 232 lbs. His temperature was 96.7 ???F with a blood pressure of 150/81 mmHg. The pulse was 57 bpm and his respiratory rate was 18. There was no erythema within the treatment green. Continue pelvic radiotherapy as prescribed. Signed by: Dr. Reji Vo 11/20/2020 10:08:07 AM
== END 2020-12-04 23:59 | disposition home or self-care (01) ==
LOC: ONCMED 05:45
PROVIDERS: Absent Provider Radiology Radiation Oncology; Family Provider Nurse Practitioner Family; PCP Family Medicine; Visit Provider Radiology Radiation Oncology
DX: Z51.0 Encounter for antineoplastic radiation therapy (principal); C61 Malignant neoplasm of prostate; Z79.899 Other long term (current) drug therapy
CPT/HCPCS: 77300; 77336; 77338; 77385

== ENCOUNTER 2020-12-20 05:35 | Outpatient (RCR) | payer OTHER, SELFPAY ==
--- NOTE | 2020-12-05 10:35 | ONCRAD TMN_ITS ---
Radiation Oncology Treatment Management Note Patient Name: Barrera Menendez Date of : 1950 Date of Service: 12/05/2020 Attending Physician: Reji Vo M.D. 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 His pretreatment PSA was 6.2 ng/mL. A TRUS biopsy identified an adenocarcinoma of the prostate gland (Fatmata???s score 4+5=9). The patient was prescribed Casodex (August 09, 2020) and administered neoadjuvant gonadotropin-releasing hormone agonist therapy (Zoladex ??? September 14, 2020). The patient has received 72 Gy of a prescribed 78 Alfredo to the prostate and seminal vesicles with an intensity modulated radiotherapy plan utilizing a step and shoot treatment technique. The pelvic lymph nodes were treated prior to this phase of radiotherapy. He has received neoadjuvant hormonal therapy. Upon review of systems, he described nocturia (4 times) and a weak stream. On physical examination, the patient weighed 234 lbs. His temperature was 97 ???F with a blood pressure of 157/82 mmHg. The pulse was 59 bpm and his respiratory rate was 18. There was no erythema within the treatment green. Continue pelvic radiotherapy as planned. I recommended a NSAID for nocturia. Signed by: Dr. Reji Vo 12/05/2020 10:41:43 AM
[2020-12-20 09:10] LABS: Basophils % 0.2 %; Eosinophils # 0.3 10^3/uL (0.0-0.8); Eosinophils % 5.2 %; Hematocrit 36.4 % (42.0-52.0); Hemoglobin 12.9 g/dL (11.7-16.6); Lymphocytes # 0.5 10^3/uL (0.8-4.8); Lymphocytes % 10.1 %; Mean Corpuscular HGB Conc 35.4 g/dL (30.0-36.0); Mean Corpuscular Hemoglobin 33.9 pg (28.0-34.0); Mean Corpuscular Volume 95.8 fL (80-94); Mean Platelet Volume 10.6 fL (7.4-10.4); Monocytes # 0.5 10^3/uL (0.2-0.9); Monocytes % 10.1 %; Neutrophils # 3.66 10^3/uL (1.8-7.7); Neutrophils % 73.6 %; Nucleated Red Blood Cells % 0 %; Platelet Count 168 10^3/cmm (130-400); Red Cell Distribution Width 13.1 % (12.1-15.1)
[2020-12-20 09:29] LABS: Prostate Specific Antigen 0.019 ng/mL (0-4); Testosterone Total 2.5 ng/dL (193-740)
[2020-12-20 09:40] LABS: Alanine Aminotransferase 219 U/L (0-41); Albumin Level 4.2 g/dL (3.5-5.2); Alkaline Phosphatase 69 IU/L (40-130); Blood Urea Nitrogen 24 mg/dL (8-23); Calcium 9.7 mg/dL (8.5-10.5); Carbon Dioxide 23 mmol/L (22-29); Chloride 97 mmol/L (98-107); Globulin 2.6 g/dL (1.3-4.6); Glucose 177 mg/dL (65-115); Osmolality Calculated 290 mOsm/kg (285-295); Sodium 136 mmol/L (136-145); Total Bilirubin 0.7 mg/dL (0.15-1.2); Total Protein 6.8 g/dL (6.6-8.7)
[2020-12-20 09:44] LABS: Anion Gap 19.6 (5-19); Aspartate Amino Transferase 81 U/L (0-40); Potassium 3.6 mmol/L (3.5-5.1)
--- NOTE | 2020-12-20 17:03 | ONC FU_ITS ---
Dr. Aden follow up note Patient: Barrera Menendez Unit #: [id number]: 1950 Dicatated By: Ada Aden M.D.Date of Visit:Dec 20, 2020 Onc Med Follow-up/Prog Note History of Present Illness: Mr. Menendez is a 70-year-old gentleman with a history of mildly elevated PSA in the range of 4+. He eventually underwent ultrasound-guided prostate biopsy on June 04, 2020 which showed high-grade prostatic acinar adenocarcinoma Stanford score 9, group grade 5. Three cores from left prostate base showed 5 to 80% involvement- Stanford score 4+5 and 3 cores from left mid gland shows 60 to 90% involvement with Fatmata score 4+5 again group grade 5. Two cores from right apex shows 5 to 50% involvement with adenocarcinoma, Fatmata score 4+5 group grade 5 e.g. T2c, NX, very high risk (Fatmata score 4+5, group grade 5 in [address] scan of abdomen pelvis was done on July 27, 2020 which showed no evidence of retroperitoneal lymphadenopathy and no other abnormality seen. Mr Menendez denies any history of hematuria except one episode after the prostate biopsy, no dysuria, no bony pains, no weight loss. Patient has history of heavy alcohol use but quit drinking in 1993 now occasional drinker. No history of smoking.History of fatty liver with abnormal LFTs status post liver biopsy No family history of prostate cancer but patient has 2 boys, healthy otherwise. He has been advised to pursue androgen deprivation with Casodex and Zoladex. He began Casodex 50 mg around August 31, 2020 and his first dose of Zoladex was on September 14, 2020. Came for follow-up, denies any specific complaints, no fever chills, no nausea or vomiting, no diarrhea or constipation, patient is finished his recommended radiation therapy to prostate gland about 2 weeks ago otherwise tolerating Zoladex/Casodex well except with mild hot flashes Medications: amLODIPine Besylate 1 Tablet (of 10 mg) Tablet Oral daily, Aspirin 1 Tablet (of 325 mg) Oral daily, Atenolol 1 Tablet (of 100 mg) Oral daily, hydroCHLOROthiazide 1 Tablet (of 25 mg) Tablet Oral daily, Losartan Potassium 1 Tablet (of 100 mg) Oral daily Allergies: Colestipol HCl, Gemfibrozil, Lisinopril, Lovastatin, Pravastatin Sodium, and Simvastatin. Review of Systems: Review of Systems is not available for this patient. Vital Signs: Performed on Dec 20, 2020 11:11 Height - 70.00 in Weight - 233.2 lbs (LOW) BSA - 2.23 sq.m BMI - 33.46 (HIGH) Temperature - 96.2 F (LOW) Pulse - 53 /min (LOW) Respiration - 18 /min BP - 145/77 mm(hg) (HIGH) O2 Sat - 98 % Pain - 0 Fatigue - 0 Performance Status: 0 - Fully active, able to carry on all predisease activities without restrictions. (ECOG) Physical Examination: ENMT - No mouth sores, no thrush, no jaundice, Respiratory - Lungs are clear to auscultation, Cardiovascular - Regular rate and rhythm of heart, Abdomen - Soft, bowel sounds present, Extremities - No visible edema or rash. Lab/Imaging: Test performed on Oct 18, 2020 10:35 Sodium 130 mmol/L Testosterone, Total 6.2 ng/dL Potassium 3.4 mmol/L Chloride 92 mmol/L CO2 26 mmol/L Anion Gap 15.4 BUN 19 mg/dL Creatinine 1.1 mg/dL Cr Clearance (Est) 95.16 mL/min Glucose 175 mg/dL Osmolality - Calculated 277 mOsm/kg Calcium 8.9 mg/dL Protein, Total 7.2 g/dL Albumin 4.7 g/dL Globulin 2.5 g/dL Bilirubin, Total 0.8 mg/dL ALT (SGPT) 277 U/L AST (SGOT) 143 U/L Alkaline Phosphatase 88 IU/L WBC 5.4 10 3/uL RBC 4.57 10 6/uL HGB 14.8 g/dL HCT 41.6 % MCV 91.0 fL MCH 32.4 pg MCHC 35.6 g/dL RDW 11.9 % Platelet Count 203 10 3/cmm MPV 10.6 fL Neutrophils 3.56 10 3/uL Lymphocytes 1.0 10 3/uL Monocytes 0.5 10 3/uL Eosinophils 0.3 10 3/uL Basophils 0.0 10 3/uL Neutrophil % 65.5 % Lymphocyte % 19.2 % Monocyte % 9.2 % Eosinophil % 5.5 % Basophils % 0.2 % NRBC % 0 % PSA 0.822 ng/mL Impression: Very high risk prostate cancer per ultrasound-guided prostate gland biopsy done on June 04, 2020 which showed prostatic acinar adenocarcinoma involving left base, 3 cores, Stanford score 4+5 group grade 5. Left middle lobe, 3 cores Stanford score 4+5, group grade 5. Right apex 2 cores, Fatmata score 4+5 group grade 5 e.g. T2c, very high risk Stanford score 9 with a group grade 5 and 8 cores PSA at time of diagnosis 4.61 CT scan of abdomen done on July 27, 2020 showed no evidence of pelvic lymphadenopathy Abnormal LFTs due to fatty liver, as per patient biopsy confirmed, now being followed by director of user experience Started on neoadjuvant ADT Casodex and Zoladex was added on September 14, 2020 and concurrent radiation therapy was added in the first first week of Octobernd completed in December 2020, Casodex was discontinued on December 20, 2020 While continue with 3 monthly Zoladex, 1 month after completion of radiation therapy, Taxotere 75 mg/m??? every 3 weeks x 6 is scheduled And will continue with 3 monthly Zoladex for 24 months Plan: Discussed with patient regarding his labs white blood count 5 hemoglobin 12.9 hematocrit 36.4 platelets 168,000 CMP within normal limit except ALT 219 AST 81 and PSA 0.019 Clinically, patient doing well with no new signs symptoms testicular disease progression, patient has completed combined ADT and radiation therapy to prostate about 2 weeks ago,, Will discontinue Casodex today and Being high risk, now adjuvant therapy with Taxotere every 3 weeks x 6 cycle and long-term Zoladex up to 24-months discussed, patient agreed, all the side effect possible benefits associated with Taxotere including but not limited to bone marrow suppression, hair loss, peripheral neuropathy, allergic reaction, nausea vomiting were mentioned, further teaching was done by chemotherapy nurse ,planning to give him Taxotere 75 mg/m??? every 3 weeks x 6 cycle We will refer him to Dr. Manning for Port-A-Cath placement and then patient return to clinic 1 week after Taxotere is initiated with CBC CMP in the meantime we will proceed with his 3 monthly dose of Zoladex today Signed By: Ada Aden M.D. <<Signature on File>>
== END 2021-01-03 23:59 | disposition home or self-care (01) ==
LOC: ONCMED 05:35
PROVIDERS: Family Provider Nurse Practitioner Family; PCP Family Medicine; Visit Provider Internal Medicine Hematology & Oncology
DX: Z51.0 Encounter for antineoplastic radiation therapy (principal); C61 Malignant neoplasm of prostate; R97.20 Elevated prostate specific antigen [PSA]; K76.0 Fatty (change of) liver, not elsewhere classified; Z79.899 Other long term (current) drug therapy
CPT/HCPCS: 77336; 77385; 80053; 84153; 84403; 85025; 99214

== ENCOUNTER → 2020-12-29 10:02 | Outpatient (BNVA) | payer OTHER, SELFPAY | PROVIDERS: Family Provider Nurse Practitioner Family; PCP Family Medicine; Visit Provider Surgery | DX: Z01.812 Encounter for preprocedural laboratory examination (principal); Z20.822 Contact with and (suspected) exposure to COVID-19 | CPT/HCPCS: 87635 ==

== ENCOUNTER 2021-01-03 09:31 | Day surgery (SDC) | payer OTHER, SELFPAY ==
[2021-01-02 10:29] VITALS: BMI 32.3
--- NOTE | 2021-01-03 | SCC_ITS ---
Procedure Done: Placement of PowerPort in the left subclavian vein 33.2 seconds of fluoroscopic guidance, for a cumulative dose of 6.8 mGy, was provided to Dr. Manning by the radiology department. C-arm images of the chest were saved for the patient's permanent record. KEMARD
[2021-01-03 09:41] VITALS: BP 157/107; PULSE 97; RESP 98; TEMP 36.3; O2SAT 98
[2021-01-03 10:02] LABS: Glucose Point of Care 162 mg/dL (70-110)
--- NOTE | 2021-01-03 10:04 | ANES.PREANE2 ---
Pre-Anesthetic Assessment Pre-Anesthetic Assessment: Height/Weight: Height 1.78 m Weight 102.058 kg Temp Pulse Resp BP Pulse Ox 97.3 F L 97 98 H 157/107 98 01/03/21 09:41 01/03/21 09:41 01/03/21 09:41 01/03/21 09:41 01/03/21 09:41 Preop Diagnosis: prostate cancer Proposed Procedure: Operation Date: 01/03/21 10:25 Proposed Procedures p Portacath Placement 90512 C61(Not Applicable) - Teodoro Manning MD Was Beta Lisa taken within 24 hours: Yes Was Clonidine taken within 24 hours: N/A Last intake: Intake Last Liquid Date 01/02/21 Last Liquid Time 22:30 Last Solid Date 01/02/21 Last Solid Time 18:30 Social: Social History: No alcohol and No tobacco Exam: Pre-Anes Outpt Exam: alert, oriented x 3, clear to auscultation bilaterally and regular rate & rhythm Airway: Submandibular: WNL Cervical ROM: WNL MP: 2 CV/HEM: CV/HEM: HTN Metabolic: Metabolic: DM, Hyperlipidemia and Morbid obesity Anesthetic Plan: ASA status: 3 Anesthesia: MAC Risk of > 500 ml blood loss (7ml/kg in children): No PFSH Anesthesia PFSH: Medical History (Updated 12/26/20 @ 13:20 by Teodoro Manning MD) Diabetes Hyperlipidemia Hypertension Prostate cancer Surgical History (Updated 12/26/20 @ 13:20 by Teodoro Manning MD) History of ankle surgery Family History (Updated 12/26/20 @ 13:09 by LINWOOD Freeman) Denies family history of Anesthesia complication Bleeding disorder Social History (Updated 12/26/20 @ 13:10 by LINWOOD Freeman) Smoking and tobacco status: never smoked Alcohol intake: never Data Anesthesia Other Labs: Laboratory Results - last 48 hr 01/03/21 09:56 POC Glucose 162 H Cardiac Studies: No Data to Display
[2021-01-03] MEDS: sodium chloride 0.9% 500 ML 999 ML IV (10:15)
--- NOTE | 2021-01-03 10:22 | W.PM.OPSUD ---
Surgery/Procedure H&P Update DATE OF PROCEDURE: January 03, 2021 DATE H&P PERFORMED: 12/26/20 H&P UPDATE INFORMATION: I have reviewed H&P completed within last 30 days, I have examined patient prior to procedure and No changes to prior documentation PREOP DIAGNOSIS: prostate cancer PLANNED PROCEDURE: Operation Date: 01/03/21 10:25 Proposed Procedures p Portacath Placement 47850 C61(Not Applicable) - Teodoro Manning MD
--- NOTE | 2021-01-03 11:12 | SC_ITS ---
WS: [id number] C-arm fluoroscopy for left port insertion, 01/03/2021 Clinical Data: port Comparison: Portable chest, 12/28/2012. Findings: The left infusion port enters a left subclavian vein and ends in the superior vena cava. SC/C-arm FL for CVA 74530 Impression: Left Port-A-Cath insertion.
[2021-01-03] MEDS: heparin, porcine 1,000 unit/mL INJ 10 mL 6000 UNIT INJECTION (11:26)
[2021-01-03] MEDS: lidocaine 1% INJ 20 mL 10 ML INJECTION (11:28)
[2021-01-03 11:45] VITALS: BP 108/58; PULSE 66; RESP 20; TEMP 36.6; O2SAT 95
[2021-01-03 11:50] VITALS: BP 112/53; PULSE 62; RESP 16; TEMP 36.6; O2SAT 96
[2021-01-03 12:17] VITALS: BP 171/78; PULSE 60; RESP 18; TEMP 36.7; O2SAT 98
--- NOTE | 2021-01-03 14:35 | ANE.PACU2 ---
Inpatient post-anesthesia follow up: Airway intact: Yes Vital signs: Temperature 98.1 F Pulse Rate 60 Respiratory Rate 18 Blood Pressure 171/78 Pulse Oximetry 98 Oxygen Delivery Me thod Room Air Oxygen Flow Rate Fraction of Inspir ed Oxygen Hydration adequate: Yes Nausea and vomiting: No Pain level: 1 Mental status: Baseline
--- NOTE | 2021-01-03 15:01 | PM.OP ---
Operative Report Date of procedure: January 03, 2021 Pre-op Diagnosis: prostate cancer Post-op diagnosis: same Procedure Done: Placement of PowerPort in the left subclavian vein Fluoroscopic guidance and interpretation for placement of catheter Pathology: none sent Surgeon: Teodoro Manning Anesthesia: MAC Condition: stable Disposition: PACU Procedure: The patient was taken to the Operating Room and the chest and neck bilaterally were prepped and draped in a sterile manner after the antibiotic had been administered and shoulder rolls had been placed. A total of 10 mL of 1% lidocaine with 0.5% Marcaine was infiltrated under the clavicle on the left side at the site of the planned entry into the subclavian vein. An introducer needle was then used to access the subclavian vein under the clavicle and after withdrawing blood syringe was removed and a guidewire passed under fluoroscopy into the superior vena cava. The site of the planned port was then marked on the chest and a 15 blade was used to make a 3 cm skin incision this was extended into the subcutaneous tissue using electrocautery and a subcutaneous pocket over the pectoralis fascia was created 2-0 Vicryl suture was used to suture the port to the pectoral fascia in the pocket on 3 sides. The catheter, after having been flushed with hep saline, was attached to the tunneler and a tunnel created between the port site and the subclavian vein entry site. Under fluoroscopy the dilator sheath was passed over the guidewire into the proximal superior vena cava. The inner dilator was removed and the sheath left behind and~ the catheter was introduced through the peel-away sheath with the tip in the superior vena cava. The peel-away sheath was removed. The proximal end of the catheter was cut to the right size and was attached to the port. Using a Centeno needle the port was accessed, it withdrew blood easily and flushed easily. A final 5cc of heparin was used to flush the PowerPort. The subcutaneous tissue was approximated using interrupted 3-0 Vicryl sutures and the skin at the introducer site and the port site was closed using subcuticular running 4-0 Monocryl sutures. Surgical glue was applied and the patient was stable throughout the procedure. Fluoroscopic guidance and interpretation was performed for introduction of the guidewire in the left subclavian vein, passage of dilator and placement of catheter tip in the distal superior vena cava.
== END 2021-01-03 12:40 | disposition home or self-care (01) ==
PROVIDERS: Family Provider Nurse Practitioner Family; PCP Family Medicine; Visit Provider Surgery
PROC: (CPT 36561; principal; 2021-01-03 10:25)
DX: C61 Malignant neoplasm of prostate (principal); E11.9 Type 2 diabetes mellitus without complications; E78.5 Hyperlipidemia, unspecified; I10 Essential (primary) hypertension; Z79.84 Long term (current) use of oral hypoglycemic drugs
CPT/HCPCS: 36561; 36416; 77001; 82962; C1788; J0690; J1644; J2250; J2704; J3490; J7040

== ENCOUNTER 2021-01-04 05:40 | Outpatient (RCR) | payer OTHER, SELFPAY ==
[2021-01-04 09:15] LABS: Basophils % 0.1 %; Eosinophils % 0.1 %; Hematocrit 34.8 % (42.0-52.0); Hemoglobin 12.6 g/dL (11.7-16.6); Lymphocytes # 0.5 10^3/uL (0.8-4.8); Lymphocytes % 3.2 %; Mean Corpuscular HGB Conc 36.2 g/dL (30.0-36.0); Mean Corpuscular Hemoglobin 34.6 pg (28.0-34.0); Mean Corpuscular Volume 95.6 fL (80-94); Mean Platelet Volume 10.6 fL (7.4-10.4); Monocytes # 0.2 10^3/uL (0.2-0.9); Monocytes % 1.6 %; Neutrophils # 13.23 10^3/uL (1.8-7.7); Nucleated Red Blood Cells % 0 %; Platelet Count 183 10^3/cmm (130-400); Red Blood Count 3.64 10^6/uL (4.1-5.3); Red Cell Distribution Width 12.4 % (12.1-15.1); White Blood Count 14.1 10^3/uL (4.0-10.0)
[2021-01-04 09:39] LABS: Alanine Aminotransferase 158 U/L (0-41); Albumin Level 4.4 g/dL (3.5-5.2); Alkaline Phosphatase 65 IU/L (40-130); Aspartate Amino Transferase 57 U/L (0-40); Blood Urea Nitrogen 29 mg/dL (8-23); Calcium 8.9 mg/dL (8.5-10.5); Carbon Dioxide 23 mmol/L (22-29); Chloride 100 mmol/L (98-107); Globulin 2.5 g/dL (1.3-4.6); Glucose 229 mg/dL (65-115); Osmolality Calculated 297 mOsm/kg (285-295); Sodium 137 mmol/L (136-145); Total Bilirubin 0.8 mg/dL (0.15-1.2); Total Protein 6.9 g/dL (6.6-8.7)
[2021-01-04] MEDS: sodium chloride 0.9% 250 ML 75 ML IV (12:30)
[2021-01-04] MEDS: famotidine 20 mg/2 mL INJ IVP (12:30)
[2021-01-04] MEDS: diphenhydrAMINE 50 mg/mL SDV 1mL 25 MG IVP (12:32)
[2021-01-04] MEDS: palonosetron 0.25 mg/5 mL SDV IVP (12:36)
--- NOTE | 2021-01-04 17:17 | ONC FU_ITS ---
Dr. Aden follow up note Patient: Barrera Menendez Unit #: [id number]: 1950 Dicatated By: Ada Aden M.D.Date of Visit:Jan 04, 2021 Onc Med Follow-up/Prog Note History of Present Illness: Mr. Menendez is a 70-year-old gentleman with a history of mildly elevated PSA in the range of 4+. He eventually underwent ultrasound-guided prostate biopsy on June 04, 2020 which showed high-grade prostatic acinar adenocarcinoma [place] score 9, group grade 5. Three cores from left prostate base showed 5 to 80% involvement- [place] score 4+5 and 3 cores from left mid gland shows 60 to 90% involvement with Fatmata score 4+5 again group grade 5. Two cores from right apex shows 5 to 50% involvement with adenocarcinoma, Fatmata score 4+5 group grade 5 e.g. T2c, NX, very high risk (Fatmata score 4+5, group grade 5 in [address] scan of abdomen pelvis was done on July 27, 2020 which showed no evidence of retroperitoneal lymphadenopathy and no other abnormality seen. Mr Menendez denies any history of hematuria except one episode after the prostate biopsy, no dysuria, no bony pains, no weight loss. Patient has history of heavy alcohol use but quit drinking in 1993 now occasional drinker. No history of smoking.History of fatty liver with abnormal LFTs status post liver biopsy No family history of prostate cancer but patient has 2 boys, healthy otherwise. He has been advised to pursue androgen deprivation with Casodex and Zoladex. He began Casodex 50 mg around August 31, 2020 and his first dose of Zoladex was on September 14, 2020.,, Concurrent radiation therapy was added in the first week of October 2020 and completed in December 2020, Casodex was discontinued on December 20, 2020 while continue with 3 monthly Zoladex Being high risk, Taxotere 75 mg/m??? every 3-week x 6 was started on January 04, 2021 Came for follow-up, denies any specific complaints, no fever chills, no nausea or vomiting, no diarrhea or constipation, occasionally hot flashes otherwise tolerating Zoladex every 3 months, now being started on Taxotere every 3 weeks x 6 cycles Medications: amLODIPine Besylate 1 Tablet (of 10 mg) Tablet Oral daily, Aspirin 1 Tablet (of 325 mg) Oral daily, Atenolol 1 Tablet (of 100 mg) Oral daily, hydroCHLOROthiazide 1 Tablet (of 25 mg) Tablet Oral daily, Losartan Potassium 1 Tablet (of 100 mg) Oral daily Allergies: Colestipol HCl, Gemfibrozil, Lisinopril, Lovastatin, Pravastatin Sodium, and Simvastatin. Review of Systems: Review of Systems is not available for this patient. Vital Signs: Performed on Jan 04, 2021 10:47 Height - 70.00 in Weight - 231 lbs (LOW) BSA - 2.22 sq.m BMI - 33.15 (HIGH) Temperature - 97.5 F (LOW) Pulse - 84 /min Respiration - 18 /min BP - 137/76 mm(hg) O2 Sat - 97 % Pain - 0 Fatigue - 0 Performance Status: 0 - Fully active, able to carry on all predisease activities without restrictions. (ECOG) Physical Examination: ENMT - No mouth sores, no thrush, no jaundice, Respiratory - Lungs are clear to auscultation, Cardiovascular - Regular rate and rhythm of heart, Abdomen - Soft, bowel sounds present, Extremities - No visible edema or rash. Lab/Imaging: Test performed on Oct 18, 2020 10:35 Sodium 130 mmol/L Testosterone, Total 6.2 ng/dL Potassium 3.4 mmol/L Chloride 92 mmol/L CO2 26 mmol/L Anion Gap 15.4 BUN 19 mg/dL Creatinine 1.1 mg/dL Cr Clearance (Est) 95.16 mL/min Glucose 175 mg/dL Osmolality - Calculated 277 mOsm/kg Calcium 8.9 mg/dL Protein, Total 7.2 g/dL Albumin 4.7 g/dL Globulin 2.5 g/dL Bilirubin, Total 0.8 mg/dL ALT (SGPT) 277 U/L AST (SGOT) 143 U/L Alkaline Phosphatase 88 IU/L WBC 5.4 10 3/uL RBC 4.57 10 6/uL HGB 14.8 g/dL HCT 41.6 % MCV 91.0 fL MCH 32.4 pg MCHC 35.6 g/dL RDW 11.9 % Platelet Count 203 10 3/cmm MPV 10.6 fL Neutrophils 3.56 10 3/uL Lymphocytes 1.0 10 3/uL Monocytes 0.5 10 3/uL Eosinophils 0.3 10 3/uL Basophils 0.0 10 3/uL Neutrophil % 65.5 % Lymphocyte % 19.2 % Monocyte % 9.2 % Eosinophil % 5.5 % Basophils % 0.2 % NRBC % 0 % PSA 0.822 ng/mL Impression: Very high risk prostate cancer per ultrasound-guided prostate gland biopsy done on June 04, 2020 which showed prostatic acinar adenocarcinoma involving left base, 3 cores, [place] score 4+5 group grade 5. Left middle lobe, 3 cores Fatmata score 4+5, group grade 5. Right apex 2 cores, [place] score 4+5 group grade 5 e.g. T2c, very high risk Fatmata score 9 with a group grade 5 and 8 cores PSA at time of diagnosis 4.61 CT scan of abdomen done on July 27, 2020 showed no evidence of pelvic lymphadenopathy Abnormal LFTs due to fatty liver, as per patient biopsy confirmed, now being followed by plant utility person Started on neoadjuvant ADT Casodex and Zoladex was added on September 14, 2020 and concurrent radiation therapy was added in the first first week of Octobernd completed in December 2020, Casodex was discontinued on December 20, 2020 While continue with 3 monthly Zoladex, 1 month after completion of radiation therapy, Taxotere 75 mg/m??? every 3 weeks x 6 is scheduled And will continue with 3 monthly Zoladex for 24 months Plan: Discussed with patient regarding his labs white blood count 14.1 hemoglobin 12.6 hematocrit 34.8 platelets 183,000 CMP within normal limit except ALT 158 compared to 219, AST 57 compared to 81 previously Clinically, patient doing well with no new signs symptoms, tolerating adjuvant therapy with 3 monthly Zoladex well, at this point we will proceed with first cycle of Taxotere 75 mg per metered squared every 3 weeks x 6, patient will return to clinic in 1 week with CBC CMP Signed By: Ada Aden M.D. <<Signature on File>>
== END 2021-01-07 19:00 | disposition home or self-care (01) ==
LOC: ONCMED 05:40
PROVIDERS: Family Provider Nurse Practitioner Family; PCP Family Medicine; Visit Provider Internal Medicine Hematology & Oncology
DX: Z51.11 Encounter for antineoplastic chemotherapy (principal); C61 Malignant neoplasm of prostate; R97.20 Elevated prostate specific antigen [PSA]; Z79.899 Other long term (current) drug therapy
CPT/HCPCS: 36415; 80053; 85025; 96367; 96375; 96413; 99215; J1100; J1200; J2469; J3490; J7050; J9171

== ENCOUNTER 2021-01-07 19:46 | Inpatient (IN) | payer OTHER, SELFPAY ==
[2021-01-07 20:48] VITALS: BP 132/73; PULSE 64; RESP 16; TEMP 36.5; O2SAT 96; BMI 31.7
[2021-01-07 22:04] LABS: Add Urine Culture? Yes; Add Urine Microscopic? YES; Bacteria Urine TRACE /hpf; Bilirubin Urine 1+ (Negative); Blood Urine 3+ (Negative); Glucose Urine UA Norm (Normal); Ketones Urine 1+ (Negative); Leukocyte Esterase Urine Negative (Negative); Nitrate Urine Negative (Negative); Protein Urine 3+ (Negative); Squamous Epithelial Cell Urine 0-4 /hpf (0-5); Urine Appearance Clear (CLEAR); Urine Color Yellow (Yellow); Urobilinogen Urine 1 mg/dL (Negative); WBC Urine 15-25 /hpf (0-5); pH Urine 5 (5-7)
--- NOTE | 2021-01-07 22:31 | P.HP_ITS ---
Providers/Chief Complaint Primary Care Provider: Abeba Jasso MD Chief Complaint: bloody diarrhea, sent by Dr. Benton History of Present Illness Barrera Menendez is a 70 year old male who carries history of high-grade adenocarcinoma prostate cancer status post radiotherapy recently started his first session of chemotherapy last week presented today with hematochezia. Patient is stating that he has been noticing bright bleed per rectum on and off for last few months but in last 48 hours he has noticed twice. He noticed bright bleed per rectum. He is endorsing history of hemorrhoids however colonoscopy 5 years ago as per the patient was unremarkable. He has been feeling dizzy which she describing as lightheadedness, denying chest pain, shortness of breath or falls. He was seen at Dr. Aden's clinic today and was sent to the ER for further evaluation Diagnostics in the ER revealed normal CBC, mild JETT, blood pressure 150 systolic patient had 1 bloody bowel movement in the ER as well however hemodynamically stable CT abdomen pelvis did not reveal any acute pathological/remarkable findings for hematochezia, hemorrhoids were noticed on digital rectal exam Review of Systems Const: Denies: fever(s) Eyes: Denies: change in vision ENMT: Denies: throat pain Card: Denies: chest pain Resp: Denies: dyspnea GI: Reports: abdominal pain and hematochezia : Denies: flank pain Musc: Denies: neck pain Skin/Breast: Denies: rash Neuro: Denies: headache(s) Psych: Denies: anxiety Endo: Denies: polyuria Rbadley/Lymph: Denies: easy bruising All/Imm: Denies: urticaria Medications/Allergies Home Medications Medication Instructions Recorded Confirmed Last Taken Type amlodipine 10 mg tablet 10 mg PO DAILY 12/26/20 01/03/21 01/02/21 07:00 History atenolol 100 mg tablet 100 mg PO DAILY 12/26/20 01/03/21 01/02/21 07:00 History bicalutamide 50 mg tablet 50 mg PO DAILY 12/26/20 01/03/21 01/02/21 07:00 History cholecalciferol (vitamin D3) 50 50 mcg PO DAILY 12/26/20 01/03/21 01/02/21 07:00 History mcg (2,000 unit) capsule hydrochlorothiazide 25 mg tablet 25 mg PO DAILY 12/26/20 01/03/21 01/02/21 07:00 History losartan 100 mg tablet 100 mg PO DAILY 12/26/20 01/03/21 01/02/21 07:00 History metformin 1,000 mg tablet 1,000 mg PO BID 12/26/20 01/03/21 01/02/21 07:00 History omega-3 fatty acids 1,000 mg 1,000 mg PO BID 12/26/20 01/03/21 Unknown History capsule docusate sodium [Colace] 100 mg PO BID #30 cap 01/03/21 Unknown Rx hydrocodone-acetaminophen 1 tab PO Q6H PRN #20 tab 01/03/21 Unknown Rx ondansetron HCl [Zofran] 4 mg PO Q6H PRN #20 tab 01/03/21 Unknown Rx Allergies Allergy/AdvReac Type Severity Reaction Status Date / Time No Known Allergies Allergy Unverified 01/02/21 10:26 PFSH Acute PFSH: Medical History Diabetes Hyperlipidemia Hypertension Prostate cancer Surgical History History of ankle surgery Port-A-Cath in place (01/03/21) Family History Denies family history of Anesthesia complication Bleeding disorder Social History Smoking and tobacco status: never smoked Alcohol intake: never Vitals/I&O/Wt Last Vital Signs Temp 97.7 F 01/07/21 20:48 Pulse 64 01/07/21 20:48 Resp 16 01/07/21 20:48 BP 132/73 01/07/21 20:48 Pulse Ox 96 01/07/21 20:48 Weight last 48 hrs Weight 100.244 kg Physical Exam Narrative: EXAM NARRATIVE: Pleasant cooperative elderly male Currently laying supine without any active discomfort Normal complexion No signs of extreme pallor S1, S2 sinus rhythm no active signs of heart failure or dehydration Abdomen soft mildly tender in right upper quadrant and right and left lower quadrants Rectal exam revealed hemorrhoids Lower extremity no edema gangrene ulcer Awake alert oriented x3 GCS 15 No neurological testing EOMI, PERRLA at the bedside Data : 01/07/21 23:02 01/07/21 23:02 A&P Assessment and plan (1) Hematochezia: Status: Acute (2) JETT (acute kidney injury): Status: Acute Additional A&P Information Hematochezia In total patient only had 2 episodes of bright bleed per rectum has hemorrhoids on digital rectal exam As per the patient previous colonoscopy was unremarkable No previous history of gastric ulcer Hemodynamically stable hemoglobin 12 N.p.o., Protonix 40 IV twice daily No acute indication for any endoscopy at this point repeat H&H in the morning Acute on chronic kidney disease I do believe this is secondary to nephrotoxic agents losartan and hydrochlorothiazide which I would hold for now, patient endorses signs of UTI, UA reveals pyuria I will start him on ceftriaxone for now and request urine culture Adenocarcinoma high-grade prostate cancer Status post radiotherapy recently started first session of chemotherapy, follows with Dr. Aden N.p.o. 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
--- NOTE | 2021-01-07 22:58 | W.ED.NAVMDI ---
HPI - Nausea/Vomiting/Diarrhea General: Chief complaint: Nausea/Vomiting/Diarrhea Stated complaint: bloody diarrhea, sent by Dr. Benton Time Seen by Provider: 01/07/21 21:28 History of Present Illness: HPI Narrative: The patient is a 70-year-old male with past medical history prostate cancer who has completed radiation treatment and just started chemotherapy. He comes to the ER today complaining of 2 days of increasingly red bloody stools. He says he had an entirely bowel movement of blood today as well. He called Dr. Benton's office who told him to come to the ER for evaluation. He thinks he has had a hemorrhoid in the past but is not sure. He denies coating of the stools he said there is profusely increased color of the toilet when he goes to the bathroom and he is having liquidy diarrhea. He also sees some blood clots in the toilet. MD elicited complaint: diarrhea Description of diarrhea: other (bright red blood) Associated nausea: No Associated abdominal pain: No Quality: cramping Exacerbating factors: other (diarrhea) Associated symtoms: Reports no associated symptoms; Denies anxiety, change in vision, chest pain, dizziness, fatigue, headache(s), nausea or palpitations Review of Systems General: Reports: 10 or more systems reviewed and unremarkable except in HPI and below Const: Denies: fatigue Eyes: Denies: change in vision, blurry vision or eye redness ENMT: Denies: throat pain, swelling of lips/tongue, ear or mastoid pain or nasal congestion Card: Denies: chest pain, palpitations, irregular heart rhythm, edema, dyspnea on exertion or orthopnea Resp: Denies: dyspnea, productive cough or non-productive cough GI: Reports: hematochezia; Denies: nausea : Denies: flank pain, urinary frequency or urinary urgency Musc: Denies: neck pain, back pain, extremity pain, joint pain, joint redness, limited range of motion or muscle weakness Skin/Breast: Denies: rash, pruritus, erythema, skin pain or skin tenderness Neuro: Denies: headache(s), numbness in extremities, weakness in extremities, sensory changes, difficulty walking, dizziness, confusion or Slurred speech present Psych: Denies: anxiety or depression Endo: Denies: polyuria All/Imm: Denies: urticaria, throat swelling or tongue swelling PFSH ED PFSH: Medical History Diabetes Hyperlipidemia Hypertension Prostate cancer Surgical History History of ankle surgery Port-A-Cath in place (01/03/21) Family History Denies family history of Anesthesia complication Bleeding disorder Social History Smoking and tobacco status: never smoked Alcohol intake: never Physical Exam Const: COMMON NORMALS: no acute distress, average body habitus, patient oriented x3, no limitations, healthy appearing, alert and well nourished GENERAL APPEARANCE: cooperative, comfortable, well kempt and well developed ORIENTATION/CONSCIOUSNESS: Yes awake, Yes oriented to person, Yes oriented to place and Yes oriented to time HENMT: COMMON NORMALS: normocephalic, external ears normal and Normal external nose present HEAD & SCALP: normal to inspection and normocephalic NOSE: Normal external nose present EXTERNAL EAR: Yes external ears normal MOUTH: Normal oral and palatal mucosa present THROAT: posterior oropharynx normal Eye: COMMON NORMALS: Equal, round and reactive pupils present and EOMs intact bilaterally GENERAL EYE: appearance normal, both eyes and all related structures PUPIL: Yes Equal, round and reactive pupils present Neck/C-Spine: COMMON NORMALS: full ROM, no lymphadenopathy, no meningeal signs and no JVD GENERAL: Yes normal visual inspection Lymph: LYMPHATIC: no lymphadenopathy noted Chest: COMMONS NORMALS: normal inspection of the chest and normal palpation of entire chest wall Resp: COMMON NORMALS: normal respiratory effort, No retractions, No use of accessory muscles, clear to auscultation bilaterally and percussion normal EFFORT & INSPECTION: Yes able to speak in complete sentences AUSCULTATION: clear to auscultation bilaterally PERCUSSION: percussion normal Cardio: COMMON NORMALS: no JVD, regular rate, regular rhythm, S1 normal heart sound present, S2 normal heart sound present and Peripheral pulses 2+ throughout RATE: regular rate RHYTHM: regular rhythm HEART SOUNDS: S1 normal heart sound present and S2 normal heart sound present PERIPHERAL PULSES: Peripheral pulses 2+ throughout GI: COMMON NORMALS: Normal to inspection, nondistended, normoactive bowel sounds present, Soft to palpation, non-tender and no masses INSPECTION: Yes normal to inspection PALPATION: Yes Soft to palpation OTHER: hemocult + in the ED today on my exam. : COMMON NORMALS: Yes no CVA tenderness BLADDER/KIDNEY EXAM: Yes no CVA tenderness Back/Pelvis: COMMON NORMALS: no CVA tenderness, thoracic and lumbar spine normal to inspection, no thoracic nor lumbar tenderness and thoraco-lumbar ROM normal Extremity: COMMON NORMALS: normal to inspection, full ROM, capillary refill normal, no joint enlargement and no pedal edema GENERAL: Yes normal exam except as noted Neuro: COMMON NORMALS: patient oriented x3, CN's II-XII intact bilaterally, moves all extremities, no focal motor deficits, no sensory deficits noted and gait normal SENSORIUM/ORIENTATION: Yes alert, Yes oriented to person, Yes oriented to place and Yes oriented to time MENINGEAL SIGNS: Yes no meningeal signs Psych: COMMON NORMALS: mental status grossly normal, Normal thought process present, cooperative, normal affect and speech normal APPEARANCE: Yes well kempt ATTITUDE: Yes calm SPEECH: Yes normal speech THOUGHT PROCESS: Normal thought process present Skin: COMMON NORMALS: no rashes or lesions noted GENERAL SKIN EXAM: no rashes or lesions noted Course Vital Signs: Vital signs: Vital Signs Temperature 97.7 F 01/07/21 20:48 Pulse Rate 68 01/08/21 00:00 Respiratory Rate 18 01/08/21 00:00 Blood Pressure 137/74 01/08/21 00:00 Pulse Oximetry 96 01/08/21 00:00 MDM - Nausea/Vomiting/Diarrhea MDM Narrative: Medical decision making narrative: The patient comes to the ER sent by Dr. Benton. He is a prostate cancer patient who has completed his radiation treatments and just started chemotherapy. Over the past couple days he has had increasingly red blood in his stools. He is suffering from hematochezia. Hemoccult positive in the ED today. Hemoglobin 12. Vitals are stable. Discussed with Dr. Green who accepts for observation. creat 1.8 BUN 40. . Started 1 L IV fluids. Lab Data: Labs: Lab Results 01/07/21 01/07/21 01/07/21 Range/Units 21:48 23:02 23:02 WBC 4.2 (4.0-10.0) 10^3/ uL RBC 3.45 L (4.1-5.3) 10^6/u L Hgb 12.0 (11.7-16.6) g/dL Hct 33.6 L (42.0-52.0) % MCV 97.4 H (80-94) fL MCH 34.8 H (28.0-34.0) pg MCHC 35.7 (30.0-36.0) g/dL RDW 12.6 (12.1-15.1) % Plt Count 126 L (130-400) 10^3/c mm MPV 10.9 H (7.4-10.4) fL Neut % (Auto) 89.5 % Lymph % (Auto) 6.0 % [place] % (Auto) 1.4 % Eos % (Auto) 2.4 % Baso % (Auto) 0.2 % Neut # (Auto) 3.75 (1.8-7.7) 10^3/u L Lymph # (Auto) 0.3 L (0.8-4.8) 10^3/u L [place] # (Auto) 0.1 L (0.2-0.9) 10^3/u L Eos # (Auto) 0.1 (0.0-0.8) 10^3/u L Baso # (Auto) 0.0 (0.0-0.1) 10^3/u L Nucleated RBC % (a uto) 0 % Nucleated RBCs # 0.0 /100WBC Sodium 137 (136-145) mmol/L Potassium 4.0 (3.5-5.1) mmol/L Chloride 106 (98-107) mmol/L Carbon Dioxide 21 L (22-29) mmol/L Anion Gap 14.0 (5-19) BUN 40 H (8-23) mg/dL Creatinine 1.8 H (0.7-1.2) mg/dL GFR Calculation Not Reportable Glucose 191 H (65-115) mg/dL Calculated Osmolal ity 299 H (285-295) mOsm/k g Calcium 8.1 L (8.5-10.5) mg/dL Total Bilirubin 0.6 (0.15-1.2) mg/dL AST 69 H (0-40) U/L ALT 168 H (0-41) U/L Alkaline Phosphata se 53 (40-130) IU/L Total Protein 5.6 L (6.6-8.7) g/dL Albumin 3.8 (3.5-5.2) g/dL Globulin 1.8 (1.3-4.6) g/dL Lipase 223 H (13-60) U/L Urine Color Yellow (Yellow) Urine Appearance Clear (CLEAR) Urine pH 5 (5-7) Ur Specific Gravit y 1.020 (1.005-1.030) Urine Protein 3+ H (Negative) Urine Glucose (UA) Norm (Normal) Urine Ketones 1+ H (Negative) Urine Blood 3+ H (Negative) Urine Nitrate Negative (Negative) Urine Bilirubin 1+ H (Negative) Urine Urobilinogen 1 H (Negative) mg/dL Ur Leukocyte Tabitha ase Negative (Negative) Urine RBC 5-10 H (0-2) /hpf Urine WBC 15-25 H (0-5) /hpf Ur Squamous Epith Cells 0-4 H (0-5) /hpf Amorphous Sediment Not Reportable Urine Bacteria Trace (NONE) /hpf Hyaline Casts 5-10 H /lpf Discharge Plan Discharge Patient Disposition: Placed in Observation Clinical Impression: Hematochezia, JETT (acute kidney injury) Coding Level of Care Code ED 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
[2021-01-07 23:00] VITALS: BP 139/70; PULSE 70; RESP 18; O2SAT 98
[2021-01-07 23:10] LABS: Basophils % 0.2 %; Eosinophils # 0.1 10^3/uL (0.0-0.8); Eosinophils % 2.4 %; Hematocrit 33.6 % (42.0-52.0); Lymphocytes # 0.3 10^3/uL (0.8-4.8); Mean Corpuscular HGB Conc 35.7 g/dL (30.0-36.0); Mean Corpuscular Hemoglobin 34.8 pg (28.0-34.0); Mean Corpuscular Volume 97.4 fL (80-94); Mean Platelet Volume 10.9 fL (7.4-10.4); Monocytes # 0.1 10^3/uL (0.2-0.9); Monocytes % 1.4 %; Neutrophils # 3.75 10^3/uL (1.8-7.7); Neutrophils % 89.5 %; Nucleated Red Blood Cells % 0 %; Platelet Count 126 10^3/cmm (130-400); Red Blood Count 3.45 10^6/uL (4.1-5.3); Red Cell Distribution Width 12.6 % (12.1-15.1); White Blood Count 4.2 10^3/uL (4.0-10.0)
[2021-01-07 23:33] LABS: Alanine Aminotransferase 168 U/L (0-41); Albumin Level 3.8 g/dL (3.5-5.2); Alkaline Phosphatase 53 IU/L (40-130); Aspartate Amino Transferase 69 U/L (0-40); Blood Urea Nitrogen 40 mg/dL (8-23); Calcium 8.1 mg/dL (8.5-10.5); Carbon Dioxide 21 mmol/L (22-29); Chloride 106 mmol/L (98-107); Globulin 1.8 g/dL (1.3-4.6); Glucose 191 mg/dL (65-115); Lipase 223 U/L (13-60); Osmolality Calculated 299 mOsm/kg (285-295); Sodium 137 mmol/L (136-145); Total Bilirubin 0.6 mg/dL (0.15-1.2); Total Protein 5.6 g/dL (6.6-8.7)
--- NOTE | 2021-01-07 23:42 | CTR_ITS ---
PROCEDURE INFORMATION: Exam: CT Abdomen And Pelvis With Contrast Exam date and time: 01/07/2021 11:42 PM Age: 70 years old Clinical indication: Patient HX: Prostate CA just started chemo C/O dark red bloody diarrhea x 3 days; Additional info: Hematochezia TECHNIQUE: Imaging protocol: Computed tomography of the abdomen and pelvis with contrast. Radiation optimization: All CT scans at this facility use at least one of these dose optimization techniques: automated exposure control; mA and/or kV adjustment per patient size (includes targeted exams where dose is matched to clinical indication); or iterative reconstruction. Contrast material: VISI 320; Contrast volume: 95 ml; Contrast route: INTRAVENOUS (IV); COMPARISON: CT abdomen pelvis wo con [id number] 07/27/2020 11:10 AM RADIATION DOSE METRICS: Total DLP (mGy-cm): 1794.56 FINDINGS: Lungs: The lung bases are clear. No effusion Liver: Normal. No mass. Gallbladder and bile ducts: No wall thickening, pericholecystic fluid or stones. Pancreas: Normal. No ductal dilation. Spleen: Normal. No splenomegaly. Adrenal glands: Normal. No mass. Kidneys and ureters: 1.2 cm left renal cyst. Stomach and bowel: Unremarkable. No obstruction. No mucosal thickening. Appendix: No evidence of appendicitis. Intraperitoneal space: Unremarkable. No free air. No significant fluid collection. Vasculature: Unremarkable. No abdominal aortic aneurysm. Lymph nodes: Unremarkable. No enlarged lymph nodes. Urinary bladder: Unremarkable as visualized. Reproductive: Unremarkable as visualized. Bones/joints: Unremarkable. No acute fracture. Soft tissues: Unremarkable. CT/CT abdomen pelvis w con* [id number] IMPRESSION: 1.2 cm left renal cyst. Otherwise, negative examination. No cause for bloody diarrhea is identified. COMMENTS: Consistent with the [employer]'s Incidental Findings Committee white paper (J Am Kennedy Radiol 2018): Any incidental renal lesion less than 1 cm or classified as too small to characterize, or any incidental cystic renal lesion characterized as simple-appearing, is likely benign. No follow-up imaging is recommended for these lesions per consensus recommendations based on imaging criteria. Radiation Dose CTDIVOL = (mGy): DLP = 1794.56 (mGy-cm)
[2021-01-07] MEDS: iodixanol 320 mg/mL 100mL Btl IV (23:53)
[2021-01-08] VITALS (8 sets, daily range): BP systolic 124–160; BP diastolic 72–82; PULSE 61–73; RESP 15–18; TEMP 35.6–36.6; O2SAT 95–98
[2021-01-08] MEDS: dextrose 5%-sod chloride 0.9% 1,000 ML 30 ML IV (03:03)
[2021-01-08] MEDS: pantoprazole 40 mg SDV IVP ×2 (03:03→14:58)
[2021-01-08 07:07] LABS: Basophils % 0.4 %; Eosinophils # 0.1 10^3/uL (0.0-0.8); Eosinophils % 2.5 %; Hematocrit 34.5 % (42.0-52.0); Hemoglobin 11.7 g/dL (11.7-16.6); Lymphocytes # 0.2 10^3/uL (0.8-4.8); Lymphocytes % 7.1 %; Mean Corpuscular HGB Conc 33.9 g/dL (30.0-36.0); Mean Corpuscular Hemoglobin 34.3 pg (28.0-34.0); Mean Corpuscular Volume 101.2 fL (80-94); Mean Platelet Volume 11.2 fL (7.4-10.4); Monocytes % 1.4 %; Neutrophils # 2.46 10^3/uL (1.8-7.7); Neutrophils % 87.9 %; Nucleated Red Blood Cells % 0 %; Platelet Count 113 10^3/cmm (130-400); Red Blood Count 3.41 10^6/uL (4.1-5.3); Red Cell Distribution Width 12.6 % (12.1-15.1); White Blood Count 2.8 10^3/uL (4.0-10.0)
[2021-01-08 07:29] LABS: Blood Urea Nitrogen 33 mg/dL (8-23); Calcium 7.6 mg/dL (8.5-10.5); Carbon Dioxide 22 mmol/L (22-29); Chloride 106 mmol/L (98-107); Glucose 159 mg/dL (65-115); Osmolality Calculated 297 mOsm/kg (285-295); Sodium 138 mmol/L (136-145)
[2021-01-08] MEDS: amlodipine 10 mg Tablet PO (08:22)
[2021-01-08] MEDS: atenolol 50 mg Tablet 100 MG PO (08:22)
[2021-01-08] MEDS: sennosides-docusate Tablet 1 TAB PO (08:22)
[2021-01-08] MEDS: cefTRIAXone 1,000 MG in sodium chloride 0.9% (plus) 50 ML 100 MG IV (08:23)
--- NOTE | 2021-01-08 10:29 | PC.NURSE ---
AM NOTE PT UP IN ROOM WITH AT SIDE TO ASSIST WITH SHOWER - PT STATES THAT HE HAS ONLY HAD 1 BLOODY STOOL THROUGH THE NIGHT
--- NOTE | 2021-01-08 12:22 | PM.PN ---
Subjective Subjective: Interval history: Patient was seen and examined this morning, continues to complain of watery diarrhea, 3 episodes in total since this morning today, currently deny any blood in the stool, says mostly the stool has been greenish, and watery. Patient wants to eat. Medications: Reviewed: Yes Vitals/I&O/Wt Last Vital Signs Temp 96.5 F L 01/08/21 07:14 Pulse 67 01/08/21 07:14 Resp 17 01/08/21 07:14 BP 137/72 01/08/21 07:14 Pulse Ox 98 01/08/21 07:14 01/07/21 01/08/21 01/08/21 22:59 06:59 14:59 Intake Total 50 / 50 Output Total 275 / 275 Balance -275 / -275 50 / 50 Weight last 48 hrs Weight 100.244 kg Physical Exam Const: COMMON NORMALS: patient oriented x3 HENMT: COMMON NORMALS: normocephalic and atraumatic HEAD & SCALP: normocephalic and atraumatic Chest: CHEST: Yes Symmetrical chest wall rise Resp: COMMON NORMALS: normal respiratory effort and clear to auscultation bilaterally EFFORT & INSPECTION: Yes symmetric chest movement AUSCULTATION: clear to auscultation bilaterally Cardio: COMMON NORMALS: regular rate, regular rhythm, S1 normal heart sound present, S2 normal heart sound present, No gallops present (Cardio), No murmurs present (Cardio), No rub (Cardio) and Peripheral pulses 2+ throughout RATE: regular rate RHYTHM: regular rhythm HEART SOUNDS: S1 normal heart sound present and S2 normal heart sound present PERIPHERAL PULSES: Peripheral pulses 2+ throughout GI: COMMON NORMALS: no masses AUSCULTATION: Yes normoactive bowel sounds RECTAL EXAM: Yes deferred OTHER: Right upper quadrant tenderness present, no guarding no rigidity no rebound tenderness Extremity: COMMON NORMALS: no clubbing, cyanosis or edema and no pedal edema Neuro: COMMON NORMALS: patient oriented x3 Data : 01/08/21 06:25 01/08/21 06:25 A&P Assessment and plan (1) Hematochezia: Status: Acute (2) JETT (acute kidney injury): Status: Acute (3) Leukopenia: Status: Acute (4) Thrombocytopathia: Status: Acute (5) UTI (urinary tract infection): Status: Acute (6) Diabetes: Status: Acute (7) Hypertension: Status: Acute (8) Prostate cancer: Status: Acute (9) Port-A-Cath in place: Status: Acute Additional A&P Information Hematochezia: 2 episodes of bright bleed per rectum has hemorrhoids on digital rectal exam As per the patient previous colonoscopy was unremarkable No previous history of gastric ulcer Hemodynamically stable hemoglobin 12 Monitor CBC Protonix 40 IV twice daily Follow stool study Acute on chronic kidney disease: Likely prerenal , secondary dehydration 2/2 to poor oral intake as well as medication( losartan and hydrochlorothiazide ) Monitor BMP Urine electrolytes Avoid nephrotoxic medication Continue with IV hydration UTI: Follow urine culture.ceftriaxone for now Leukopenia: Likely secondary to post chemotherapy effect. Continue to monitor WBC. Thrombocytopenia: Currently platelet count is 113. No evident bleeding.No petechiae. Low suspicion for HIT ,TTP,HUS,DIC,ITP: Based on the clinical presentation. Monitor platelet count for now. 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 Aden Carbohydrate consistent diet. Full code DVT prophylaxis contraindicated : SCDs Attestations Medical Necessity Statement*: Patient is doing hospital for management of GI bleed, leukopenia thrombocytopenia UTI.Need for IV hydration. 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
--- NOTE | 2021-01-08 16:39 | PC.NURSE ---
END OF SHIFT SUMMARY PT HAS HAD APPROX 3-4 LOOSE STOOL - DOES NOT REPORT ANY BLOOD IN STOOL UP TO THIS POINT - HAS DENIED PAIN IN ABD FOR THE MOST PART AND COMPLAINED OF TENDERNESS - LEFT PAC REMAINS PATENT VIA PUMP - HAS BEEN AMBULATING IN ROOM PER SELF - SPEND TIME WITH PATIENT THIS MORNING - VERBALIZES UNDERSTANDING OF CALL LIGHT AND DENIES NEEDS AT PRESENT TIME - PLAN OF CARE IS TO ADVANCE DIET AND MONITOR PATIENT - PER DR - PT AWARE
--- NOTE | 2021-01-08 17:04 | PC.PHAR ---
pt states he is unsure of all the names of his medications-pt states what is on [facility] med [facility] is what he takes-pts states if pt is still here on 01/09/21 she will try to bring a list of his meds in-medications entered are meds the pt states he takes and meds that are on the pts va med list-notes are made in the pharmacy comments
[2021-01-08 21:15] LABS: Glucose Point of Care 259 mg/dL (70-110)
[2021-01-09] VITALS (7 sets, daily range): BP systolic 105–154; BP diastolic 70–85; PULSE 62–73; RESP 16–18; TEMP 36.3–37.1; O2SAT 96–98
[2021-01-09] MEDS: acetaminophen 325 mg Tablet 650 MG PO (01:36)
[2021-01-09] MEDS: pantoprazole 40 mg SDV IVP ×2 (03:49→16:16)
[2021-01-09 06:17] LABS: Basophils % 2.3 %; Eosinophils # 0.1 10^3/uL (0.0-0.8); Eosinophils % 4.6 %; Hematocrit 31.5 % (42.0-52.0); Lymphocytes # 0.2 10^3/uL (0.8-4.8); Lymphocytes % 15.3 %; Mean Corpuscular HGB Conc 34.9 g/dL (30.0-36.0); Mean Corpuscular Hemoglobin 34.8 pg (28.0-34.0); Mean Corpuscular Volume 99.7 fL (80-94); Mean Platelet Volume 11.6 fL (7.4-10.4); Monocytes % 2.3 %; Neutrophils % 70.2 %; Nucleated Red Blood Cells % 0 %; Platelet Count 109 10^3/cmm (130-400); Red Blood Count 3.16 10^6/uL (4.1-5.3); Red Cell Distribution Width 12.6 % (12.1-15.1); White Blood Count 1.3 10^3/uL (4.0-10.0)
[2021-01-09 06:29] LABS: Anion Gap 11.1 (5-19); Blood Urea Nitrogen 27 mg/dL (8-23); Calcium 7.7 mg/dL (8.5-10.5); Carbon Dioxide 24 mmol/L (22-29); Chloride 109 mmol/L (98-107); Glucose 151 mg/dL (65-115); Osmolality Calculated 298 mOsm/kg (285-295); Potassium 4.1 mmol/L (3.5-5.1); Sodium 140 mmol/L (136-145)
[2021-01-09 06:29] LABS: Glucose Point of Care 177 mg/dL (70-110)
--- NOTE | 2021-01-09 07:18 | PC.NURSE ---
shift note patient alert and oriented x 3, ambulates to and from bathroom independently, had c/o pain to right side stating physician aware, refused narcotic pain med, requested regular tylenol. call placed to hospitalist Dr. Weaver and order received for tylenor 650 one time only
[2021-01-09 08:22] LABS: Neutrophils # 0.92 10^3/uL (1.8-7.7); Slide Review Slide Review Perform
[2021-01-09] MEDS: amlodipine 10 mg Tablet PO (08:54)
[2021-01-09] MEDS: sennosides-docusate Tablet 1 TAB PO (08:54)
[2021-01-09] MEDS: atenolol 50 mg Tablet 100 MG PO (08:54)
[2021-01-09] MEDS: cefTRIAXone 1,000 MG in sodium chloride 0.9% (plus) 50 ML 100 MG IV (08:56)
[2021-01-09] MEDS: dextrose 5%-sod chloride 0.9% 1,000 ML 30 ML IV (09:05)
--- NOTE | 2021-01-09 09:39 | XRR_ITS ---
PROCEDURE INFORMATION: Exam: XR Chest Exam date and time: 01/09/2021 9:39 AM Age: 70 years old Clinical indication: Shortness of breath; Prior surgery; Surgery type: Portacath; Additional info: SOB TECHNIQUE: Imaging protocol: XR of the chest. Views: 1 view. COMPARISON: No relevant prior studies available. FINDINGS: Tubes, catheters and devices: There is a left subclavian port with the catheter tip at/near the superior cavoatrial junction. Lungs: No pneumonia or pulmonary edema. Pleural spaces: No pleural effusion. No pneumothorax. Heart/Mediastinum: The cardiac silhouette is not enlarged. The mediastinal contours are normal. Bones/joints: There are multilevel bridging osteophytes in the spine. Left glenohumeral joint osteoarthritis. XR/XR chest 1V portable [id number] IMPRESSION: No acute abnormality.
--- NOTE | 2021-01-09 11:17 | PM.PN ---
Subjective Subjective: Interval history: Patient was seen and examined this morning, diarrhea has improved, WBC count has continued to trend down as well as neutrophil count. Patient currently denies any chest pain shortness of breath nausea vomiting , cough, he is complaining of burning sensation while passing urine. Medications: Reviewed: Yes Vitals/I&O/Wt Last Vital Signs Temp 97.9 F 01/09/21 08:00 Pulse 62 01/09/21 08:00 Resp 18 01/09/21 08:00 BP 135/81 01/09/21 08:00 Pulse Ox 98 01/09/21 08:00 01/08/21 01/09/21 01/09/21 22:59 06:59 14:59 Intake Total 480 / 530 1330 / 1330 Output Total 300 / 300 Balance 480 / 530 -300 / 230 1330 / 1330 Weight last 48 hrs Weight 100.244 kg Physical Exam Const: COMMON NORMALS: patient oriented x3 HENMT: COMMON NORMALS: normocephalic and atraumatic HEAD & SCALP: normocephalic and atraumatic Chest: CHEST: Yes Symmetrical chest wall rise Resp: COMMON NORMALS: normal respiratory effort and clear to auscultation bilaterally EFFORT & INSPECTION: Yes symmetric chest movement AUSCULTATION: clear to auscultation bilaterally Cardio: COMMON NORMALS: regular rate, regular rhythm, S1 normal heart sound present, S2 normal heart sound present, No gallops present (Cardio), No murmurs present (Cardio), No rub (Cardio) and Peripheral pulses 2+ throughout RATE: regular rate RHYTHM: regular rhythm HEART SOUNDS: S1 normal heart sound present and S2 normal heart sound present PERIPHERAL PULSES: Peripheral pulses 2+ throughout GI: COMMON NORMALS: no masses AUSCULTATION: Yes normoactive bowel sounds RECTAL EXAM: Yes deferred OTHER: Right upper quadrant tenderness present, no guarding no rigidity no rebound tenderness Extremity: COMMON NORMALS: no clubbing, cyanosis or edema and no pedal edema Neuro: COMMON NORMALS: patient oriented x3 Data : 01/09/21 05:06 01/09/21 05:06 Micro: Microbiology 01/07/21 21:48 Urine Culture - Preliminary Urine,Clean Catch A&P Assessment and plan (1) Hematochezia: Status: Acute (2) JETT (acute kidney injury): Status: Acute (3) Leukopenia: Status: Acute (4) Thrombocytopathia: Status: Acute (5) UTI (urinary tract infection): Status: Acute (6) Diabetes: Status: Acute (7) Hypertension: Status: Acute (8) Prostate cancer: Status: Acute (9) Port-A-Cath in place: Status: Acute Additional A&P Information Hematochezia: 2 episodes of bright bleed per rectum has hemorrhoids on digital rectal exam As per the patient previous colonoscopy was unremarkable No previous history of gastric ulcer Hemodynamically stable hemoglobin 12 Monitor CBC Protonix 40 IV twice daily Follow stool study Acute on chronic kidney disease: Likely prerenal , secondary dehydration 2/2 to poor oral intake as well as medication( losartan and hydrochlorothiazide ) Monitor BMP Urine electrolytes Avoid nephrotoxic medication Continue with IV hydration UTI: Follow urine culture.ceftriaxone for now Leukopenia with neutropenia: Likely secondary to post chemotherapy effect. Continue to monitor WBC. X-ray chest: No acute pathology Blood culture: Urine culture Lactic procalcitonin C.diff:Negative Stool Studies : Negative Thrombocytopenia: Currently platelet count is stable . No evident bleeding.No petechiae. Low suspicion for HIT ,TTP,HUS,DIC,ITP: Based on the clinical presentation. Monitor platelet count for now. 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 Aden Carbohydrate consistent diet. Full code DVT prophylaxis contraindicated : SCDs Attestations Medical Necessity Statement*: Patient needs to be in hospital for the management of leukopenia with severe neutropenia. 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
[2021-01-09 12:41] LABS: Glucose Point of Care 256 mg/dL (70-110)
[2021-01-09 17:24] LABS: Glucose Point of Care 184 mg/dL (70-110)
[2021-01-09 21:11] LABS: Glucose Point of Care 201 mg/dL (70-110)
[2021-01-09] MEDS: tamsulosin 0.4 mg Capsule PO (21:26)
[2021-01-10] VITALS (7 sets, daily range): BP systolic 106–144; BP diastolic 65–82; PULSE 62–78; RESP 18–24; TEMP 36.4–37.2; O2SAT 94–99
--- NOTE | 2021-01-10 03:03 | PC.NURSE ---
shift note patient independent of all adls, rested without difficulty, no c/o pain, verbalized stool becoming normal again
[2021-01-10] MEDS: pantoprazole 40 mg SDV IVP ×2 (03:24→15:50)
[2021-01-10 05:38] LABS: Eosinophils # 0.1 10^3/uL (0.0-0.8); Eosinophils % 7.6 %; Hemoglobin 10.7 g/dL (11.7-16.6); Lymphocytes # 0.3 10^3/uL (0.8-4.8); Lymphocytes % 40.9 %; Mean Corpuscular HGB Conc 34.5 g/dL (30.0-36.0); Mean Corpuscular Hemoglobin 34.5 pg (28.0-34.0); Monocytes % 4.5 %; Neutrophils % 34.9 %; Nucleated Red Blood Cells % 0 %; Platelet Count 120 10^3/cmm (130-400); Red Cell Distribution Width 12.5 % (12.1-15.1)
[2021-01-10 06:00] LABS: Anion Gap 12.4 (5-19); Blood Urea Nitrogen 28 mg/dL (8-23); Calcium 7.9 mg/dL (8.5-10.5); Carbon Dioxide 23 mmol/L (22-29); Chloride 109 mmol/L (98-107); Glucose 163 mg/dL (65-115); Osmolality Calculated 299 mOsm/kg (285-295); Potassium 4.4 mmol/L (3.5-5.1); Sodium 140 mmol/L (136-145)
[2021-01-10 06:30] LABS: Glucose Point of Care 171 mg/dL (70-110)
[2021-01-10] MEDS: atenolol 50 mg Tablet 100 MG PO (07:31)
[2021-01-10] MEDS: tamsulosin 0.4 mg Capsule PO (07:31)
[2021-01-10] MEDS: sennosides-docusate Tablet 1 TAB PO (07:31)
[2021-01-10] MEDS: amlodipine 10 mg Tablet PO (07:31)
[2021-01-10] MEDS: cefTRIAXone 1,000 MG in sodium chloride 0.9% (plus) 50 ML 100 MG IV (07:32)
[2021-01-10 07:59] LABS: Neutrophils # 0.23 10^3/uL (1.8-7.7); Slide Review Slide Review Perform; White Blood Count 0.7 10^3/uL (4.0-10.0)
--- NOTE | 2021-01-10 08:32 | P.PN_ITS ---
Subjective Subjective: Interval history: Patient was seen and examined this morning, diarrhea has resolved , WBC count has continued to trend down as well as neutrophil count. Patient currently denies any chest pain, shortness of breath, nausea , vomiting , cough. Medications: Reviewed: Yes Vitals/I&O/Wt Last Vital Signs Temp 98.5 F 01/10/21 07:30 Pulse 64 01/10/21 07:30 Resp 18 01/10/21 07:30 BP 127/68 01/10/21 07:30 Pulse Ox 97 01/10/21 07:30 01/09/21 01/10/21 01/10/21 22:59 06:59 14:59 Intake Total 1221 / 2791 300 / 3091 60 / 60 Output Total 453 / 453 0 / 453 Balance 768 / 2338 300 / 2638 60 / 60 Physical Exam Const: COMMON NORMALS: patient oriented x3 HENMT: COMMON NORMALS: normocephalic and atraumatic HEAD & SCALP: normocephalic and atraumatic Chest: CHEST: Yes Symmetrical chest wall rise Resp: COMMON NORMALS: normal respiratory effort and clear to auscultation bilaterally EFFORT & INSPECTION: Yes symmetric chest movement AUSCULTATION: clear to auscultation bilaterally Cardio: COMMON NORMALS: regular rate, regular rhythm, S1 normal heart sound present, S2 normal heart sound present, No gallops present (Cardio), No murmurs present (Cardio), No rub (Cardio) and Peripheral pulses 2+ throughout RATE: regular rate RHYTHM: regular rhythm HEART SOUNDS: S1 normal heart sound present and S2 normal heart sound present PERIPHERAL PULSES: Peripheral pulses 2+ throughout GI: COMMON NORMALS: no masses AUSCULTATION: Yes normoactive bowel sounds RECTAL EXAM: Yes deferred OTHER: Right upper quadrant tenderness present, no guarding no rigidity no rebound tenderness Extremity: COMMON NORMALS: no clubbing, cyanosis or edema and no pedal edema Neuro: COMMON NORMALS: patient oriented x3 Data : 01/10/21 04:57 01/10/21 04:57 Micro: Microbiology 01/07/21 21:48 Urine Culture - Final Urine,Clean Catch 01/09/21 12:59 Blood Culture - Preliminary Blood SPECIMEN COLLECTED 01/09/21 09:00 Enteric Pathogens (PCR) - Final Stool Routine Collection Parasite Antigen Panel - Final 01/09/21 09:00 C.difficile Toxin B Gene (PCR) - Final Stool Routine Collection 01/09/21 12:05 Blood Culture - Preliminary Blood SPECIMEN COLLECTED 01/09/21 09:00 Stool Lactoferrin - Final Stool - Stool Aspirate A&P Assessment and plan (1) Hematochezia: Status: Acute (2) JETT (acute kidney injury): Status: Acute (3) Leukopenia: Status: Acute (4) Thrombocytopathia: Status: Acute (5) UTI (urinary tract infection): Status: Acute (6) Diabetes: Status: Acute (7) Hypertension: Status: Acute (8) Prostate cancer: Status: Acute (9) Port-A-Cath in place: Status: Acute Additional A&P Information Hematochezia: 2 episodes of bright bleed per rectum has hemorrhoids on digital rectal exam As per the patient previous colonoscopy was unremarkable No previous history of gastric ulcer Hemodynamically stable hemoglobin 12 Monitor CBC Protonix 40 IV twice daily Follow stool study Acute on chronic kidney disease: Likely prerenal , secondary dehydration 2/2 to poor oral intake as well as medication( losartan and hydrochlorothiazide ) : Monitor BMP Urine electrolytes Avoid nephrotoxic medication Continue with IV hydration UTI: Follow urine culture.Initially on ceftriaxone. Leukopenia with Afebrile neutropenia : Likely secondary to post chemotherapy effect. Cannot conclusively r/o Medication induced ( on Ceftriaxone I.V ) Continue to monitor WBC. X-ray chest: No acute pathology Blood culture:NTD Urine culture:NTD Lactic procalcitonin C.diff:Negative Stool Studies : Negative Rochehin has been discontinued Currently on levofloxacin Started On Filgrastim Thrombocytopenia: Currently platelet count is stable . No evident bleeding.No petechiae. Low suspicion for HIT ,TTP,HUS,DIC,ITP: Based on the clinical presentation. Monitor platelet count for now. 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 Aden Carbohydrate consistent diet. Full code DVT prophylaxis contraindicated : SCDs Attestations Medical Necessity Statement*: Patient needs to be in hospital for management severe leukopenia as well as Afebrile Neutropenia. 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
[2021-01-10 16:55] LABS: Glucose Point of Care 238 mg/dL (70-110)
[2021-01-10 20:54] LABS: Glucose Point of Care 194 mg/dL (70-110)
[2021-01-11 00:55] VITALS: BP 143/78; PULSE 75; RESP 18; TEMP 36.3; O2SAT 97
[2021-01-11] MEDS: pantoprazole 40 mg SDV IVP ×2 (02:53→13:46)
--- NOTE | 2021-01-11 04:40 | PC.NURSE ---
shift note patient rested this shift, c/o headache at beginning of shift but refuses any pain meds, verbalized headache is not new, encouraged to let staff know if headache continues or increase in severity. independent, continue to have dizziness when changing position from laying to sitting, educated about sitting up slowly and sitting still until dizziness subsides in order to prevent a fall, patient also encouraged to call for staff with position changing.
[2021-01-11 05:20] VITALS: BP 143/77; PULSE 71; RESP 16; TEMP 36.8; O2SAT 97
[2021-01-11 06:30] LABS: Basophils % 4.2 %; Eosinophils % 8.3 %; Hematocrit 31.8 % (42.0-52.0); Hemoglobin 11.1 g/dL (11.7-16.6); Lymphocytes # 0.3 10^3/uL (0.8-4.8); Lymphocytes % 54.2 %; Mean Corpuscular HGB Conc 34.9 g/dL (30.0-36.0); Mean Corpuscular Hemoglobin 35.1 pg (28.0-34.0); Mean Corpuscular Volume 100.6 fL (80-94); Mean Platelet Volume 10.7 fL (7.4-10.4); Monocytes # 0.1 10^3/uL (0.2-0.9); Monocytes % 12.5 %; Neutrophils % 20.8 %; Nucleated Red Blood Cells % 4.2 %; Platelet Count 146 10^3/cmm (130-400); Red Blood Count 3.16 10^6/uL (4.1-5.3); Red Cell Distribution Width 12.3 % (12.1-15.1)
[2021-01-11 06:40] LABS: Glucose Point of Care 162 mg/dL (70-110)
[2021-01-11 06:52] LABS: Anion Gap 11.2 (5-19); Blood Urea Nitrogen 25 mg/dL (8-23); Calcium 7.7 mg/dL (8.5-10.5); Carbon Dioxide 23 mmol/L (22-29); Chloride 110 mmol/L (98-107); Glucose 160 mg/dL (65-115); Osmolality Calculated 298 mOsm/kg (285-295); Potassium 4.2 mmol/L (3.5-5.1); Sodium 140 mmol/L (136-145)
[2021-01-11 06:55] LABS: Procalcitonin 0.18 ng/mL (0-0.5)
[2021-01-11 07:26] VITALS: BP 141/88; PULSE 63; RESP 16; TEMP 36.7; O2SAT 97
[2021-01-11 07:47] LABS: White Blood Count 0.5 10^3/uL (4.0-10.0)
[2021-01-11 07:48] LABS: Slide Review Slide Review Perform
[2021-01-11] MEDS: sennosides-docusate Tablet 1 TAB PO (09:19)
[2021-01-11] MEDS: tamsulosin 0.4 mg Capsule PO (09:19)
[2021-01-11] MEDS: atenolol 50 mg Tablet 100 MG PO (09:19)
[2021-01-11] MEDS: amlodipine 10 mg Tablet PO (09:20)
--- NOTE | 2021-01-11 10:50 | NUR.SHIFT ---
while passing AM meds the patient verbalized that he was no longer taking his chemo pill, he stated that he was unsure the name of it, but knew that Dr. aden directed him to stop taking it. Dr. Aden contacted about cosadex medication, and verbal order given to discontinue medication on the SEP. Dr. Whitlock notified of medication change.
[2021-01-11 11:06] VITALS: BP 124/77; PULSE 61; RESP 16; TEMP 36.6; O2SAT 98
[2021-01-11 11:44] LABS: Glucose Point of Care 252 mg/dL (70-110)
[2021-01-11] MEDS: levofloxacin-dextrose 5 % 750 MG/150 ML PREMIX 100 MG IV (12:15)
--- NOTE | 2021-01-11 14:50 | P.PN_ITS ---
Subjective Subjective: Interval history: Patient was seen and examined this morning, diarrhea has resolved , WBC count has continued to trend down as well as neutrophil count. Patient currently denies any chest pain, shortness of breath, nausea , vomiting , cough. Medications: Reviewed: Yes Vitals/I&O/Wt Last Vital Signs Temp 97.9 F 01/11/21 11:06 Pulse 61 01/11/21 11:06 Resp 16 01/11/21 11:06 BP 124/77 01/11/21 11:06 Pulse Ox 98 01/11/21 11:06 01/10/21 01/11/21 01/11/21 22:59 06:59 14:59 Intake Total 120 / 650 510 / 510 Balance 120 / 650 510 / 510 Physical Exam Const: COMMON NORMALS: patient oriented x3 HENMT: COMMON NORMALS: normocephalic and atraumatic HEAD & SCALP: normocephalic and atraumatic Chest: CHEST: Yes Symmetrical chest wall rise Resp: COMMON NORMALS: normal respiratory effort and clear to auscultation bilaterally EFFORT & INSPECTION: Yes symmetric chest movement AUSCULTATION: clear to auscultation bilaterally Cardio: COMMON NORMALS: regular rate, regular rhythm, S1 normal heart sound present, S2 normal heart sound present, No gallops present (Cardio), No murmurs present (Cardio), No rub (Cardio) and Peripheral pulses 2+ throughout RATE: regular rate RHYTHM: regular rhythm HEART SOUNDS: S1 normal heart sound present and S2 normal heart sound present PERIPHERAL PULSES: Peripheral pulses 2+ throughout GI: COMMON NORMALS: no masses AUSCULTATION: Yes normoactive bowel sounds RECTAL EXAM: Yes deferred OTHER: Right upper quadrant tenderness present, no guarding no rigidity no rebound tenderness Extremity: COMMON NORMALS: no clubbing, cyanosis or edema and no pedal edema Neuro: COMMON NORMALS: patient oriented x3 Data : 01/11/21 06:00 01/11/21 06:00 Micro: Microbiology 01/09/21 12:59 Blood Culture - Preliminary Blood NEGATIVE TO DATE 01/09/21 12:05 Blood Culture - Preliminary Blood NEGATIVE TO DATE A&P Assessment and plan (1) Hematochezia: Status: Acute (2) JETT (acute kidney injury): Status: Acute (3) Leukopenia: Status: Acute (4) Thrombocytopathia: Status: Acute (5) UTI (urinary tract infection): Status: Acute (6) Diabetes: Status: Acute (7) Hypertension: Status: Acute (8) Prostate cancer: Status: Acute (9) Port-A-Cath in place: Status: Acute Additional A&P Information Hematochezia: 2 episodes of bright bleed per rectum has hemorrhoids on digital rectal exam As per the patient previous colonoscopy was unremarkable No previous history of gastric ulcer Hemodynamically stable hemoglobin 12 Monitor CBC Protonix 40 IV twice daily Follow stool study Acute on chronic kidney disease: Likely prerenal , secondary dehydration 2/2 to poor oral intake as well as medication( losartan and hydrochlorothiazide ) : Monitor BMP Urine electrolytes Avoid nephrotoxic medication Continue with IV hydration UTI: Follow urine culture.Initially on ceftriaxone. Leukopenia with Afebrile neutropenia : Likely secondary to post chemotherapy effect. Cannot conclusively r/o Medication induced ( on Ceftriaxone I.V ) Continue to monitor WBC. X-ray chest: No acute pathology Blood culture:NTD Urine culture:NTD Lactic acid : procalcitonin: Normal C.diff:Negative Stool Studies : Negative Rochehin has been discontinued Currently on levofloxacin Started On Filgrastim Thrombocytopenia: Currently platelet count is stable . No evident bleeding.No petechiae. Low suspicion for HIT ,TTP,HUS,DIC,ITP: Based on the clinical presentation. Monitor platelet count for now. 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 Aden Carbohydrate consistent diet. Full code DVT prophylaxis contraindicated : SCDs Attestations Medical Necessity Statement*: Patient need sto be in the hospital for the management of afebrile neutropenia as well as severe leukopenia. 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
[2021-01-11 15:32] VITALS: BP 126/79; PULSE 69; RESP 16; TEMP 36.9; O2SAT 99
[2021-01-11 16:48] LABS: Glucose Point of Care 201 mg/dL (70-110)
[2021-01-11 20:00] VITALS: BP 151/89; PULSE 71; RESP 20; TEMP 36.7; O2SAT 98
[2021-01-11] MEDS: HYDROcodone-acetaminophen 5-325 mg Tablet 1 TAB PO (20:40)
[2021-01-11 21:10] LABS: Glucose Point of Care 172 mg/dL (70-110)
[2021-01-12] VITALS (7 sets, daily range): BP systolic 111–134; BP diastolic 67–81; PULSE 63–74; RESP 16–18; TEMP 36.3–37.1; O2SAT 95–98
[2021-01-12] MEDS: pantoprazole 40 mg SDV IVP ×2 (02:40→14:29)
[2021-01-12 06:30] LABS: Glucose Point of Care 159 mg/dL (70-110)
[2021-01-12 08:51] LABS: Basophils % 4.5 %; Eosinophils % 6.1 %; Hematocrit 31.6 % (42.0-52.0); Hemoglobin 10.8 g/dL (11.7-16.6); Lymphocytes # 0.2 10^3/uL (0.8-4.8); Mean Corpuscular HGB Conc 34.2 g/dL (30.0-36.0); Mean Corpuscular Hemoglobin 34.7 pg (28.0-34.0); Mean Corpuscular Volume 101.6 fL (80-94); Mean Platelet Volume 10.4 fL (7.4-10.4); Monocytes # 0.3 10^3/uL (0.2-0.9); Nucleated Red Blood Cells # 0.3 /100WBC; Platelet Count 133 10^3/cmm (130-400); Red Blood Count 3.11 10^6/uL (4.1-5.3); Red Cell Distribution Width 12.5 % (12.1-15.1)
[2021-01-12 09:35] LABS: Lymphocytes % 30.8 %; Monocytes % 24.4 %; Neutrophils % 22.1 %; Slide Review Slide Review Perform
[2021-01-12 09:36] LABS: White Blood Count 0.7 10^3/uL (4.0-10.0)
[2021-01-12 09:37] LABS: Neutrophils # 0.16 10^3/uL (1.8-7.7); Nucleated Red Blood Cells % 31.5 %
[2021-01-12] MEDS: atenolol 50 mg Tablet 100 MG PO (09:59)
[2021-01-12] MEDS: tamsulosin 0.4 mg Capsule PO (09:59)
[2021-01-12] MEDS: sennosides-docusate Tablet 1 TAB PO (09:59)
[2021-01-12] MEDS: amlodipine 10 mg Tablet PO (10:00)
--- NOTE | 2021-01-12 10:19 | PM.PN ---
Subjective Subjective: Interval history: No acute event overnight. WBC count has improved a little with slight improvement in neutrophil count. Medications: Reviewed: Yes Vitals/I&O/Wt Last Vital Signs Temp 98.7 F 01/12/21 08:21 Pulse 72 01/12/21 08:21 Resp 16 01/12/21 08:21 BP 114/68 01/12/21 08:21 Pulse Ox 95 01/12/21 08:21 01/11/21 01/12/21 01/12/21 22:59 06:59 14:59 Intake Total 360 / 1110 480 / 1590 235 / 235 Output Total 150 / 150 Balance 360 / 1110 330 / 1440 235 / 235 Physical Exam Const: COMMON NORMALS: patient oriented x3 HENMT: COMMON NORMALS: normocephalic and atraumatic HEAD & SCALP: normocephalic and atraumatic Chest: CHEST: Yes Symmetrical chest wall rise Resp: COMMON NORMALS: normal respiratory effort and clear to auscultation bilaterally EFFORT & INSPECTION: Yes symmetric chest movement AUSCULTATION: clear to auscultation bilaterally Cardio: COMMON NORMALS: regular rate, regular rhythm, S1 normal heart sound present, S2 normal heart sound present, No gallops present (Cardio), No murmurs present (Cardio), No rub (Cardio) and Peripheral pulses 2+ throughout RATE: regular rate RHYTHM: regular rhythm HEART SOUNDS: S1 normal heart sound present and S2 normal heart sound present PERIPHERAL PULSES: Peripheral pulses 2+ throughout GI: COMMON NORMALS: no masses AUSCULTATION: Yes normoactive bowel sounds RECTAL EXAM: Yes deferred OTHER: Right upper quadrant tenderness present, no guarding no rigidity no rebound tenderness Extremity: COMMON NORMALS: no clubbing, cyanosis or edema and no pedal edema Neuro: COMMON NORMALS: patient oriented x3 Data : 01/12/21 08:36 01/11/21 06:00 A&P Assessment and plan (1) Hematochezia: Status: Acute (2) JETT (acute kidney injury): Status: Acute (3) Leukopenia: Status: Acute (4) Thrombocytopathia: Status: Acute (5) UTI (urinary tract infection): Status: Acute (6) Diabetes: Status: Acute (7) Hypertension: Status: Acute (8) Prostate cancer: Status: Acute (9) Port-A-Cath in place: Status: Acute Additional A&P Information Hematochezia: 2 episodes of bright bleed per rectum has hemorrhoids on digital rectal exam As per the patient previous colonoscopy was unremarkable No previous history of gastric ulcer Hemodynamically stable hemoglobin 12 Monitor CBC Protonix 40 IV twice daily Follow stool study Acute on chronic kidney disease: Likely prerenal , secondary dehydration 2/2 to poor oral intake as well as medication( losartan and hydrochlorothiazide ) : Monitor BMP Urine electrolytes Avoid nephrotoxic medication Continue with IV hydration UTI: Follow urine culture.Initially on ceftriaxone. Leukopenia with Afebrile neutropenia : Likely secondary to post chemotherapy effect. Cannot conclusively r/o Medication induced ( on Ceftriaxone I.V ) Continue to monitor WBC. X-ray chest: No acute pathology Blood culture:NTD Urine culture:NTD Lactic acid : procalcitonin: Normal C.diff:Negative Stool Studies : Negative Rochehin has been discontinued Currently on levofloxacin Started On Filgrastim Thrombocytopenia: Currently platelet count is stable . No evident bleeding.No petechiae. Low suspicion for HIT ,TTP,HUS,DIC,ITP: Based on the clinical presentation. Monitor platelet count for now. 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 Aden Carbohydrate consistent diet. Full code DVT prophylaxis contraindicated : SCDs Attestations Medical Necessity Statement*: Patient needs to be in hospital for the management of severe neutropenia. 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
[2021-01-12 11:27] LABS: Glucose Point of Care 216 mg/dL (70-110)
--- NOTE | 2021-01-12 13:49 | PC.CHAP ---
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 weapons technician visit [] Patient/Family/Request visit [] Outpatient visit [] Follow-up visit [] Physician referral [] Code/Alert [] Routine visit [] Staff referral [] Actively dying [] Patient sleeping [] Family support [] [] Out of room [] Palliative care [] [] Receiving care in room [] Pre-surgical visit [] Trauma [] Long length of stay [] ICU visit [xx] Other: Patient remains in isolation Relational/Emotional Strength [] Patient feels connected with others/family/visitors/staff [] Distress [] Loneliness/isolation [] Abandonment Spirituality of Patient [] Person of Sarah [] Attends Scientology of their Sarah [] Believes in Prayer [] Reads Bible or Hinduism materials [] There are Spiritual issues to be addressed Editor House Organ Interventions [] Prayer [] Active listening [] Non-anxious presence [] Spiritual/emotional support [] Crisis/trauma care [] Spiritual counseling [] Bereavement support [] Provided bereavement packet [] Provided Bible/devotional materials [] Provided toy/stuffed animal, coloring book to patient or family member [] Provided Communion [] Anointing/[place] [] Salvation [] Completed spiritual assessment [] Other: Impact on Illness or Injury [] Angry [] Fearful [] Anxious [] Often cries [] Exhaustion [] Unable to work [] Unable to attend jehovah's witness [] Unable to walk/stand [] Unable to read [] Unable to drive [] Unable to eat/drink [] Unable to sleep [] Unable to be with family [] Patient intubated [] Other: Summary Time spent with patient
[2021-01-12] MEDS: levofloxacin-dextrose 5 % 750 MG/150 ML PREMIX 100 MG IV (14:30)
[2021-01-12 17:11] LABS: Glucose Point of Care 184 mg/dL (70-110)
[2021-01-12 22:05] LABS: Glucose Point of Care 198 mg/dL (70-110)
[2021-01-13] VITALS (7 sets, daily range): BP systolic 127–152; BP diastolic 71–88; PULSE 68–92; RESP 18; TEMP 36.4–37.2; O2SAT 94–98
[2021-01-13] MEDS: pantoprazole 40 mg SDV IVP ×2 (01:55→16:11)
[2021-01-13 06:05] LABS: Basophils # 0.1 10^3/uL (0.0-0.1); Basophils % 2.4 %; Eosinophils # 0.1 10^3/uL (0.0-0.8); Hematocrit 31.2 % (42.0-52.0); Hemoglobin 10.6 g/dL (11.7-16.6); Lymphocytes # 0.5 10^3/uL (0.8-4.8); Mean Corpuscular Hemoglobin 34.4 pg (28.0-34.0); Mean Corpuscular Volume 101.3 fL (80-94); Mean Platelet Volume 10.3 fL (7.4-10.4); Monocytes # 0.7 10^3/uL (0.2-0.9); Monocytes % 28.4 %; Nucleated Red Blood Cells # 0.6 /100WBC; Nucleated Red Blood Cells % 24.4 %; Platelet Count 148 10^3/cmm (130-400); Red Blood Count 3.08 10^6/uL (4.1-5.3); Red Cell Distribution Width 12.9 % (12.1-15.1); White Blood Count 2.5 10^3/uL (4.0-10.0)
[2021-01-13 06:34] LABS: Slide Review Slide Review Perform
[2021-01-13 08:45] LABS: Glucose Point of Care 159 mg/dL (70-110)
[2021-01-13] MEDS: tamsulosin 0.4 mg Capsule PO (09:34)
[2021-01-13] MEDS: amlodipine 10 mg Tablet PO (09:34)
[2021-01-13] MEDS: sennosides-docusate Tablet 1 TAB PO (09:34)
[2021-01-13 12:06] LABS: Glucose Point of Care 203 mg/dL (70-110)
--- NOTE | 2021-01-13 15:27 | PM.PN ---
Subjective Subjective: Interval history: No acute event overnight. WBC count and neutrophil count is improving. Has remained afebrile, other vitals and labs have been reviewed. Medications: Reviewed: Yes Vitals/I&O/Wt Last Vital Signs Temp 97.6 F 01/13/21 15:15 Pulse 92 01/13/21 15:15 Resp 18 01/13/21 15:15 BP 152/88 01/13/21 15:15 Pulse Ox 98 01/13/21 15:15 01/13/21 01/13/21 01/13/21 06:59 14:59 22:59 Intake Total 240 / 862 480 / 480 Output Total Balance 237 / 859 480 / 480 Physical Exam Const: COMMON NORMALS: patient oriented x3 HENMT: COMMON NORMALS: normocephalic and atraumatic HEAD & SCALP: normocephalic and atraumatic Chest: CHEST: Yes Symmetrical chest wall rise Resp: COMMON NORMALS: normal respiratory effort and clear to auscultation bilaterally EFFORT & INSPECTION: Yes symmetric chest movement AUSCULTATION: clear to auscultation bilaterally Cardio: COMMON NORMALS: regular rate, regular rhythm, S1 normal heart sound present, S2 normal heart sound present, No gallops present (Cardio), No murmurs present (Cardio), No rub (Cardio) and Peripheral pulses 2+ throughout RATE: regular rate RHYTHM: regular rhythm HEART SOUNDS: S1 normal heart sound present and S2 normal heart sound present PERIPHERAL PULSES: Peripheral pulses 2+ throughout GI: COMMON NORMALS: no masses AUSCULTATION: Yes normoactive bowel sounds RECTAL EXAM: Yes deferred OTHER: Right upper quadrant tenderness present, no guarding no rigidity no rebound tenderness Extremity: COMMON NORMALS: no clubbing, cyanosis or edema and no pedal edema Neuro: COMMON NORMALS: patient oriented x3 Data : 01/13/21 05:20 01/11/21 06:00 A&P Assessment and plan (1) Hematochezia: Status: Acute (2) JETT (acute kidney injury): Status: Acute (3) Leukopenia: Status: Acute (4) Thrombocytopathia: Status: Acute (5) UTI (urinary tract infection): Status: Acute (6) Diabetes: Status: Acute (7) Hypertension: Status: Acute (8) Prostate cancer: Status: Acute (9) Port-A-Cath in place: Status: Acute Additional A&P Information Hematochezia: 2 episodes of bright bleed per rectum has hemorrhoids on digital rectal exam As per the patient previous colonoscopy was unremarkable No previous history of gastric ulcer Hemodynamically stable hemoglobin 12 Monitor CBC Protonix 40 IV twice daily Follow stool study Acute on chronic kidney disease: Likely prerenal , secondary dehydration 2/2 to poor oral intake as well as medication( losartan and hydrochlorothiazide ) : Monitor BMP Urine electrolytes Avoid nephrotoxic medication Continue with IV hydration UTI: urine culture: Negative .Initially on ceftri Leukopenia with Afebrile neutropenia : Likely secondary to post chemotherapy effect. Cannot conclusively r/o Medication induced ( on Ceftriaxone I.V ) Continue to monitor WBC. X-ray chest: No acute pathology Blood culture:NTD Urine culture:NTD Lactic acid : procalcitonin: Normal C.diff:Negative Stool Studies : Negative Rochehin has been discontinued Currently on levofloxacin Started On Filgrastim Thrombocytopenia: Currently platelet count is stable . No evident bleeding.No petechiae. Low suspicion for HIT ,TTP,HUS,DIC,ITP: Based on the clinical presentation. Monitor platelet count for now. 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 Aden Carbohydrate consistent diet. Full code DVT prophylaxis contraindicated : SCDs Attestations Medical Necessity Statement*: Patient needs to be in hospital for the management of severe Neutropenia as well as leukopenia. 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
[2021-01-13] MEDS: levofloxacin-dextrose 5 % 750 MG/150 ML PREMIX 100 MG IV (16:14)
[2021-01-13 20:14] LABS: Glucose Point of Care 190 mg/dL (70-110)
[2021-01-14] MEDS: pantoprazole 40 mg SDV IVP (02:11)
[2021-01-14 03:40] VITALS: BP 128/75; PULSE 84; RESP 18; TEMP 36.7; O2SAT 97
[2021-01-14 06:40] LABS: Glucose Point of Care 161 mg/dL (70-110)
[2021-01-14 07:06] LABS: Hematocrit 29.9 % (42.0-52.0); Hemoglobin 10.1 g/dL (11.7-16.6); Mean Corpuscular HGB Conc 33.8 g/dL (30.0-36.0); Mean Corpuscular Hemoglobin 34.2 pg (28.0-34.0); Mean Corpuscular Volume 101.4 fL (80-94); Mean Platelet Volume 10.2 fL (7.4-10.4); Platelet Count 135 10^3/cmm (130-400); Red Blood Count 2.95 10^6/uL (4.1-5.3); Red Cell Distribution Width 13.3 % (12.1-15.1); White Blood Count 10.9 10^3/uL (4.0-10.0)
[2021-01-14 07:32] LABS: Slide Review Slide Review Perform
[2021-01-14 07:40] LABS: Absolute Eosinophils 0.3 10^3/cmm (0.0-0.7); Band Neutrophils Absolute 5.1 10^3/cmm (0.0-1.2); Corrected White Blood Count 9.9 10^3/cmm (4.8-10.8); Eosinophils 3 %; Lymphocytes 9 %; Lymphocytes Absolute 1.1 10^3/cmm (1.2-3.4); Segmented Neutrophils 18 %; Total Cells Counted 100 (0-100)
[2021-01-14 07:41] LABS: Absolute Neutrophil 7.1 10^3/cmm (1.4-6.5); Anisocytosis 1+; Dohle Bodies 1+; Platelet Estimate Normal (Normal); Polychromasia 1+
[2021-01-14 08:00] VITALS: BP 154/82; PULSE 95; RESP 18; TEMP 36.7; O2SAT 96
[2021-01-14] MEDS: amlodipine 10 mg Tablet PO (08:22)
[2021-01-14] MEDS: tamsulosin 0.4 mg Capsule PO (08:22)
[2021-01-14 09:51] VITALS: BP 154/82; PULSE 95; RESP 18; TEMP 36.7; O2SAT 96
--- NOTE | 2021-01-14 09:52 | PC.NURSE ---
Port Flushed with 2 normal salines and then removed. Patient tolerated well. Discharge instructions reviewed with patient at this time. Patient verbalized understanding. Patient is A&Ox3. Respirations even and non-labored. Patient ambulated to private car at this time.
--- NOTE | 2021-01-15 09:31 | PM.DCS ---
Discharge Providers Date of Admission: 01/09/21 11:17 Date of Discharge: January 15, 2021 Attending Provider at Admission: Og Green MD Attending Provider at Discharge: Giles Whitlock MD Primary Care Provider: Abeba Jasso MD Diagnoses at Discharge Discharge Diagnosis (1) Hematochezia: (2) JETT (acute kidney injury): (3) Leukopenia: (4) Thrombocytopathia: (5) UTI (urinary tract infection): (6) Diabetes: (7) Hypertension: (8) Prostate cancer: (9) Port-A-Cath in place: Reason for Visit Reason for Visit: bloody diarrhea, sent by Dr. Benton Hospital Course Hospital Course 70 year old male with PMH of high-grade adenocarcinoma prostate cancer status post radiotherapy recently started his first session of chemotherapy last week presented with hematochezia. On admission Patient stated that he has been noticing bright bleed per rectum on and off for last few months but in last 48 hours he has noticed twice.Initially admitted for the management of hematochezia as well as JETT and UTI.Hematochezia was likely 2/2 to hemorrhoids,h/h was stable, has normal colonscopy in past, initially kept npo as well on on protonix. JETT was prerenal likely 2/2 to poor oral intake as well as due to losartan and HCTZ.These were held during hospital stay and with adequate I.V Hydration JETT resolved.At the time of discharge SCR was at it baseline.He will follow up with his pcp in a week time with repeat BMP regarding initiation of Losartan and HCTZ.B/P was well controlled on amlodipine and atenolol.For his UTI he was kept on ceftriaxone.Urine culture was negative. Hospital course was complicated by the development of afebrile neutropenia likely 2/2 to chemotherapy effect for which he was kept on filgrastim as well as empirically on levofloxacin.Ceftriaxone was discontinued as there was concern for possible cephalosporin mediated leukopenia.At the time of discharge his wbc and neutrophil count were satisfactory. Patient responded well to the above medical management and was discharged in stable condition.He will continue to follow as well as his pcp as outpatient. Physical Exam Const: COMMON NORMALS: patient oriented x3 HENMT: COMMON NORMALS: normocephalic and atraumatic HEAD & SCALP: normocephalic and atraumatic Chest: CHEST: Yes Symmetrical chest wall rise Resp: COMMON NORMALS: normal respiratory effort and clear to auscultation bilaterally EFFORT & INSPECTION: Yes symmetric chest movement AUSCULTATION: clear to auscultation bilaterally Cardio: COMMON NORMALS: regular rate, regular rhythm, S1 normal heart sound present, S2 normal heart sound present, No gallops present (Cardio), No murmurs present (Cardio), No rub (Cardio) and Peripheral pulses 2+ throughout RATE: regular rate RHYTHM: regular rhythm HEART SOUNDS: S1 normal heart sound present and S2 normal heart sound present PERIPHERAL PULSES: Peripheral pulses 2+ throughout GI: COMMON NORMALS: Normal to inspection, nondistended, normoactive bowel sounds present, Soft to palpation, non-tender and no masses AUSCULTATION: Yes normoactive bowel sounds PALPATION: Yes Soft to palpation RECTAL EXAM: Yes deferred Extremity: COMMON NORMALS: no clubbing, cyanosis or edema and no pedal edema Neuro: COMMON NORMALS: patient oriented x3 Discharge Data Data Completed and Pending: Completed Studies During Hospitalization Category Date Time Status CT abdomen pelvis w con* [id number] Urge nt Cat Scan 01/07/21 23:42 Completed XR chest 1V moises ble [id number] Routine Exams 01/09/21 09:39 Completed Vitals: Last Vital Signs Temp 98.1 F 01/14/21 09:51 Pulse 95 01/14/21 09:51 Resp 18 01/14/21 09:51 BP 154/82 01/14/21 09:51 Pulse Ox 96 01/14/21 09:51 Discharge Plan Discharge Patient Disposition: Home Condition: Stable Prescriptions: Continued amlodipine 10 mg tablet 10 mg PO DAILY RF: 0 atenolol 100 mg tablet 100 mg PO DAILY RF: 0 cholecalciferol (vitamin D3) 50 mcg (2,000 unit) capsule 4,000 unit PO DAILY RF: 0 metformin 1,000 mg tablet 500 mg PO BID RF: 0 omega-3 fatty acids [Fish Oil Concentrate] 1,000 mg capsule 2,000 mg PO BID RF: 0 hydrocodone-acetaminophen 5-325 mg tablet 1 tab PO Q6H PRN (Reason: pain) Qty: 20 RF: 0 ondansetron HCl [Zofran] 4 mg tablet 4 mg PO Q6H PRN (Reason: nausea and vomiting) Qty: 20 RF: 0 docusate sodium [Colace] 100 mg capsule 100 mg PO BID Qty: 30 RF: 0 aspirin 325 mg Tablet 325 mg PO DAILY@09 RF: 0 prochlorperazine maleate 10 mg tablet 10 - 20 mg PO TID PRN (Reason: Nausea And Vomiting) RF: 0 niacin 500 mg Tablet 500 mg PO BEDTIME RF: 0 ibuprofen 200 mg Tablet 200 mg PO BID RF: 0 clotrimazole 1 % Cream 1 applic TOPICAL BID PRN (Reason: unknown) RF: 0 Crestor 40 mg Tablet 20 mg PO QPM RF: 0 Held losartan 100 mg tablet 100 mg PO DAILY RF: 0 Hold Instructions: Resume on 01/21/21. hydrochlorothiazide 25 mg tablet 12.5 mg PO DAILY RF: 0 Hold Instructions: Resume on 01/21/21. Discontinued bicalutamide 50 mg tablet 50 mg PO DAILY RF: 0 dexamethasone 4 mg tablet See Rx Instructions .ROUTE .COMPLEX RF: 0 Discharge Orders: Discharge Order (Routine); Ordered 01/14/21 Ordered By: Giles Whitlock Other Ambulatory Orders: Basic Metabolic Panel (Routine) Timeframe: 1 Week Facility: [facility] - Location: Lab - Main Lab Ordered By: Giles Whitlock Referrals: Abeba Jasso MD [Primary Care Provider] - 1 week (Please call Friday to schedule a follow up appointment.) Ada Aden MD [Staff Physician] - 2 weeks (Please call Friday to schedule a follow up appointment.) Discharge Diet: Low Salt Discharge Activity: Resume usual activity Patient Instructions: GI Bleeding, Neutropenic Precautions (GEN), Neutropenia, Neutropenic Diet Activity Restrictions/Additional Instructions: Repeat BMP in 1 week.once the SCR has remained stable,losartan and HCTZ can be resumed.Follow up with the PCP in a week for the same. Discharge Attestations Time Spent in Discharge Care*: less than 30 min Quality Metrics Clinical Quality Measures During this hospital stay, did patient experience: None Coding Level of Care Code Acute g [facility] note Diagnoses Hematochezia K92.1 JETT (acute kidney injury) N17.9 Leukopenia D72.819 Thrombocytopathia D69.1 UTI (urinary tract infection) N39.0 Diabetes E11.9 Hypertension I10 Prostate cancer C61 Port-A-Cath in place Z95.828
== END 2021-01-14 09:58 | disposition home or self-care (01) | DRG 378 ==
LOC: ER 01-08 00:10 → MEDSURG 01-08 00:42
PROVIDERS: Nurse Practitioner Family; Admitting Provider Internal Medicine; Emergency Provider Family Medicine; PCP Family Medicine; Visit Provider Internal Medicine
DX: K92.1 Melena (principal); N17.9 Acute kidney failure, unspecified; N39.0 Urinary tract infection, site not specified; C61 Malignant neoplasm of prostate; Z92.3 Personal history of irradiation; Z79.899 Other long term (current) drug therapy; K64.9 Unspecified hemorrhoids; E11.22 Type 2 diabetes mellitus with diabetic chronic kidney disease; N18.9 Chronic kidney disease, unspecified; E78.5 Hyperlipidemia, unspecified; I12.9 Hypertensive chronic kidney disease with stage 1 through stage 4 chronic kidney disease, or unspecified chronic kidney disease; Z95.828 Presence of other vascular implants and grafts; T50.995A Adverse effect of other drugs, medicaments and biological substances, initial encounter; E86.0 Dehydration; D70.1 Agranulocytosis secondary to cancer chemotherapy; T45.1X5A Adverse effect of antineoplastic and immunosuppressive drugs, initial encounter; Z79.891 Long term (current) use of opiate analgesic; Z79.84 Long term (current) use of oral hypoglycemic drugs
CPT/HCPCS: 36415; 36416; 36591; 71045; 74177; 80048; 80053; 81001; 82962; 83630; 83690; 84145; 85007; 85025; 87040; 87086; 87493; 87506; 96372; C9113; G0378; J0696; J1442; J1815; J1956; J8999; Q9967

== ENCOUNTER 2021-01-29 06:10 | Outpatient (RCR) | payer OTHER, SELFPAY ==
[2021-01-29 08:51] LABS: Basophils # 0.1 10^3/uL (0.0-0.1); Basophils % 0.9 %; Eosinophils # 1.5 10^3/uL (0.0-0.8); Eosinophils % 26.9 %; Hematocrit 32.5 % (42.0-52.0); Hemoglobin 11.3 g/dL (11.7-16.6); Lymphocytes # 0.5 10^3/uL (0.8-4.8); Lymphocytes % 8.5 %; Mean Corpuscular HGB Conc 34.8 g/dL (30.0-36.0); Mean Corpuscular Volume 100.6 fL (80-94); Mean Platelet Volume 9.3 fL (7.4-10.4); Monocytes # 0.5 10^3/uL (0.2-0.9); Monocytes % 8.5 %; Neutrophils # 3.07 10^3/uL (1.8-7.7); Neutrophils % 54.1 %; Nucleated Red Blood Cells % 0.4 %; Platelet Count 200 10^3/cmm (130-400); Red Blood Count 3.23 10^6/uL (4.1-5.3); Red Cell Distribution Width 14.2 % (12.1-15.1); White Blood Count 5.7 10^3/uL (4.0-10.0)
[2021-01-29 09:11] LABS: Alanine Aminotransferase 109 U/L (0-41); Albumin Level 3.9 g/dL (3.5-5.2); Alkaline Phosphatase 60 IU/L (40-130); Anion Gap 15.1 (5-19); Aspartate Amino Transferase 64 U/L (0-40); Blood Urea Nitrogen 12 mg/dL (8-23); Calcium 8.6 mg/dL (8.5-10.5); Carbon Dioxide 24 mmol/L (22-29); Chloride 105 mmol/L (98-107); Globulin 1.7 g/dL (1.3-4.6); Glucose 166 mg/dL (65-115); Osmolality Calculated 294 mOsm/kg (285-295); Potassium 4.1 mmol/L (3.5-5.1); Sodium 140 mmol/L (136-145); Total Bilirubin 0.5 mg/dL (0.15-1.2); Total Protein 5.6 g/dL (6.6-8.7)
--- NOTE | 2021-01-29 11:04 | ONC FU_ITS ---
Dr. Aden follow up note Patient: Barrera Menendez Unit #: [id number]: 1950 Dicatated By: Ada Adne M.D.Date of Visit:Jan 29, 2021 Onc Med Follow-up/Prog Note History of Present Illness: Mr. Menendez is a 70-year-old gentleman with a history of mildly elevated PSA in the range of 4+. He eventually underwent ultrasound-guided prostate biopsy on June 04, 2020 which showed high-grade prostatic acinar adenocarcinoma [place] score 9, group grade 5. Three cores from left prostate base showed 5 to 80% involvement- [place] score 4+5 and 3 cores from left mid gland shows 60 to 90% involvement with Fatmata score 4+5 again group grade 5. Two cores from right apex shows 5 to 50% involvement with adenocarcinoma, Fatmata score 4+5 group grade 5 e.g. T2c, NX, very high risk (Fatmata score 4+5, group grade 5 in [address] scan of abdomen pelvis was done on July 27, 2020 which showed no evidence of retroperitoneal lymphadenopathy and no other abnormality seen. Mr Menendez denies any history of hematuria except one episode after the prostate biopsy, no dysuria, no bony pains, no weight loss. Patient has history of heavy alcohol use but quit drinking in 1993 now occasional drinker. No history of smoking.History of fatty liver with abnormal LFTs status post liver biopsy No family history of prostate cancer but patient has 2 boys, healthy otherwise. He has been advised to pursue androgen deprivation with Casodex and Zoladex. He began Casodex 50 mg around August 31, 2020 and his first dose of Zoladex was on September 14, 2020.,, Concurrent radiation therapy was added in the first week of October 2020 and completed in December 2020, Casodex was discontinued on December 20, 2020 while continue with 3 monthly Zoladex Being high risk, Taxotere 75 mg/m??? every 3-week x 6 was started on January 04, 2021 Came for follow-up, complaining of generalized weakness and fatigue, as per patient after first cycle of chemotherapy with Taxotere he end up in the hospital with diarrhea, bleeding per rectum and his lab work-up showed acute renal failure, he was treated with IV antibiotic for possible sepsis, his white blood count was also extremely low as per patient it took about 2 weeks for him to recover and still recovering denies any fever chills denies any nausea or vomiting denies any diarrhea or constipation denies any more fresh blood per rectum denies any hemoptysis or hematemesis denies any new bony pains Medications: amLODIPine Besylate 1 Tablet (of 10 mg) Tablet Oral daily, Aspirin 1 Tablet (of 325 mg) Oral daily, Atenolol 1 Tablet (of 100 mg) Oral daily, hydroCHLOROthiazide 1 Tablet (of 25 mg) Tablet Oral daily, Losartan Potassium 1 Tablet (of 100 mg) Oral daily Allergies: Colestipol HCl, Gemfibrozil, Lisinopril, Lovastatin, Pravastatin Sodium, and Simvastatin. Review of Systems: Review of Systems is not available for this patient. Vital Signs: Performed on Jan 29, 2021 10:08 Height - 70.00 in Weight - 229 lbs (LOW) BSA - 2.21 sq.m BMI - 32.86 (HIGH) Temperature - 97 F (LOW) Pulse - 73 /min Respiration - 18 /min BP - 152/76 mm(hg) (HIGH) O2 Sat - 98 % Pain - 0 Performance Status: 1 - No physically strenuous activity, but ambulatory and able to carry out light or sedentary work (e.g. office work, light house work). (ECOG) Physical Examination: ENMT - No mouth sores, no thrush, no jaundice, Respiratory - Lungs are clear to auscultation, Cardiovascular - Regular rate and rhythm of heart, Abdomen - Soft, bowel sounds present, Extremities - No visible edema. Lab/Imaging: Test performed on Oct 18, 2020 10:35 Sodium 130 mmol/L Testosterone, Total 6.2 ng/dL Potassium 3.4 mmol/L Chloride 92 mmol/L CO2 26 mmol/L Anion Gap 15.4 BUN 19 mg/dL Creatinine 1.1 mg/dL Cr Clearance (Est) 95.16 mL/min Glucose 175 mg/dL Osmolality - Calculated 277 mOsm/kg Calcium 8.9 mg/dL Protein, Total 7.2 g/dL Albumin 4.7 g/dL Globulin 2.5 g/dL Bilirubin, Total 0.8 mg/dL ALT (SGPT) 277 U/L AST (SGOT) 143 U/L Alkaline Phosphatase 88 IU/L WBC 5.4 10 3/uL RBC 4.57 10 6/uL HGB 14.8 g/dL HCT 41.6 % MCV 91.0 fL MCH 32.4 pg MCHC 35.6 g/dL RDW 11.9 % Platelet Count 203 10 3/cmm MPV 10.6 fL Neutrophils 3.56 10 3/uL Lymphocytes 1.0 10 3/uL Monocytes 0.5 10 3/uL Eosinophils 0.3 10 3/uL Basophils 0.0 10 3/uL Neutrophil % 65.5 % Lymphocyte % 19.2 % Monocyte % 9.2 % Eosinophil % 5.5 % Basophils % 0.2 % NRBC % 0 % PSA 0.822 ng/mL Impression: Very high risk prostate cancer per ultrasound-guided prostate gland biopsy done on June 04, 2020 which showed prostatic acinar adenocarcinoma involving left base, 3 cores, Fatmata score 4+5 group grade 5. Left middle lobe, 3 cores Fatmata score 4+5, group grade 5. Right apex 2 cores, [place] score 4+5 group grade 5 e.g. T2c, very high risk [place] score 9 with a group grade 5 and 8 cores PSA at time of diagnosis 4.61 CT scan of abdomen done on July 27, 2020 showed no evidence of pelvic lymphadenopathy Abnormal LFTs due to fatty liver, as per patient biopsy confirmed, now being followed by compliance project manager Started on neoadjuvant ADT Casodex and Zoladex was added on September 14, 2020 and concurrent radiation therapy was added in the first first week of Octobernd completed in December 2020, Casodex was discontinued on December 20, 2020 While continue with 3 monthly Zoladex, 1 month after completion of radiation therapy, Taxotere 75 mg/m??? every 3 weeks x 6 is scheduled And will continue with 3 monthly Zoladex for 24 months Plan: Discussed with patient regarding his labs white blood count 5.7 hemoglobin 11.3 g medically of 32.5 platelets 200,000 CMP within normal limit except glucose 166 and ALT down to 109 compared to 158 previously and AST 64 Clinically, patient doing reasonably well, now recovering from inpatient care for diarrhea/fresh bleeding per rectum/acute renal failure/sepsis. Patient was due for his second cycle of chemotherapy, we will hold it for another week for patient to recover fully and then will consider second cycle of chemotherapy with Taxotere but this time we will use Neulasta to prevent chemotherapy-induced neutropenia/leukopenia. In the meantime we will proceed with 3 monthly Zoladex today and continue every 3-month for 2 to 3 years altogether. Abnormal LFTs, etiology unclear, now improving we will continue to monitor Return to clinic on next with CBC CMP and for cycle #2 Taxotere followed by Neulasta to prevent chemotherapy-induced neutropenia/leukopenia Signed By: Ada Aden M.D. <<Signature on File>>
[2021-01-29] MEDS: lidocaine 1% INJ 20 mL INJECTION (11:05)
[2021-01-29] MEDS: goserelin acetate 10.8 mg Implant SUBCUT (11:15)
== END 2021-02-03 23:59 | disposition home or self-care (01) ==
LOC: ONCMED 06:10
PROVIDERS: Family Provider Nurse Practitioner Family; PCP Family Medicine; Visit Provider Internal Medicine Hematology & Oncology
DX: Z51.11 Encounter for antineoplastic chemotherapy (principal); C61 Malignant neoplasm of prostate; R97.20 Elevated prostate specific antigen [PSA]; K76.0 Fatty (change of) liver, not elsewhere classified; Z79.899 Other long term (current) drug therapy
CPT/HCPCS: 36415; 80053; 85025; 96372; 96402; 99215; J9202

== ENCOUNTER 2021-03-01 05:31 | Outpatient (RCR) | payer OTHER, SELFPAY ==
[2021-02-08 11:29] LABS: Basophils % 0.1 %; Eosinophils % 0.1 %; Hematocrit 34.1 % (42.0-52.0); Hemoglobin 11.7 g/dL (11.7-16.6); Lymphocytes # 0.3 10^3/uL (0.8-4.8); Mean Corpuscular HGB Conc 34.3 g/dL (30.0-36.0); Mean Corpuscular Hemoglobin 34.3 pg (28.0-34.0); Mean Platelet Volume 9.8 fL (7.4-10.4); Monocytes # 0.3 10^3/uL (0.2-0.9); Monocytes % 2.6 %; Neutrophils # 10.39 10^3/uL (1.8-7.7); Neutrophils % 93.1 %; Nucleated Red Blood Cells % 0 %; Platelet Count 223 10^3/cmm (130-400); Red Blood Count 3.41 10^6/uL (4.1-5.3); Red Cell Distribution Width 13.2 % (12.1-15.1); White Blood Count 11.2 10^3/uL (4.0-10.0)
[2021-02-08 12:06] LABS: Anion Gap 18.5 (5-19); Blood Urea Nitrogen 24 mg/dL (8-23); Carbon Dioxide 21 mmol/L (22-29); Chloride 98 mmol/L (98-107); Glucose 269 mg/dL (65-115); Potassium 4.5 mmol/L (3.5-5.1); Sodium 133 mmol/L (136-145)
[2021-02-08 12:07] LABS: Alanine Aminotransferase 117 U/L (0-41); Albumin Level 4.3 g/dL (3.5-5.2); Alkaline Phosphatase 65 IU/L (40-130); Aspartate Amino Transferase 46 U/L (0-40); Calcium 9.1 mg/dL (8.5-10.5); Globulin 2.1 g/dL (1.3-4.6); Osmolality Calculated 290 mOsm/kg (285-295); Total Bilirubin 0.5 mg/dL (0.15-1.2); Total Protein 6.4 g/dL (6.6-8.7)
[2021-02-08] MEDS: diphenhydrAMINE 50 mg/mL SDV 1mL 25 MG IV (13:46)
[2021-02-08] MEDS: famotidine 20 mg/2 mL INJ IVP (13:48)
[2021-02-08] MEDS: sodium chloride 0.9% 250 ML 75 ML IV (13:51)
[2021-02-08] MEDS: palonosetron 0.25 mg/5 mL SDV IV (13:51)
--- NOTE | 2021-02-08 15:00 | ONC FU_ITS ---
Dr. Aden follow up note Patient: Barrera Menendez Unit #: [id number]: 1950 Dicatated By: Ada Aden M.D.Date of Visit:Feb 08, 2021 Onc Med Follow-up/Prog Note History of Present Illness: Mr. Menendez is a 70-year-old gentleman with a history of mildly elevated PSA in the range of 4+. He eventually underwent ultrasound-guided prostate biopsy on June 04, 2020 which showed high-grade prostatic acinar adenocarcinoma [place] score 9, group grade 5. Three cores from left prostate base showed 5 to 80% involvement- [place] score 4+5 and 3 cores from left mid gland shows 60 to 90% involvement with Fatmata score 4+5 again group grade 5. Two cores from right apex shows 5 to 50% involvement with adenocarcinoma, Fatmata score 4+5 group grade 5 e.g. T2c, NX, very high risk (Fatmata score 4+5, group grade 5 in [address] scan of abdomen pelvis was done on July 27, 2020 which showed no evidence of retroperitoneal lymphadenopathy and no other abnormality seen. Mr Menendez denies any history of hematuria except one episode after the prostate biopsy, no dysuria, no bony pains, no weight loss. Patient has history of heavy alcohol use but quit drinking in 1993 now occasional drinker. No history of smoking.History of fatty liver with abnormal LFTs status post liver biopsy No family history of prostate cancer but patient has 2 boys, healthy otherwise. He has been advised to pursue androgen deprivation with Casodex and Zoladex. He began Casodex 50 mg around August 31, 2020 and his first dose of Zoladex was on September 14, 2020.,, Concurrent radiation therapy was added in the first week of October 2020 and completed in December 2020, Casodex was discontinued on December 20, 2020 while continue with 3 monthly Zoladex Being high risk, Taxotere 75 mg/m??? every 3-week x 6 was started on January 04, 2021 Came for follow-up, denies any specific complaints, no fever chills, no nausea or vomiting, no diarrhea or constipation, tolerated first cycle of chemotherapy with Taxotere but ended up in hospital with neutropenia, diarrhea, sepsis after first cycle of chemo. Now has recovered well Medications: amLODIPine Besylate 1 Tablet (of 10 mg) Tablet Oral daily, Aspirin 1 Tablet (of 325 mg) Oral daily, Atenolol 1 Tablet (of 100 mg) Oral daily, hydroCHLOROthiazide 1 Tablet (of 25 mg) Tablet Oral daily, Losartan Potassium 1 Tablet (of 100 mg) Oral daily Allergies: Colestipol HCl, Gemfibrozil, Lisinopril, Lovastatin, Pravastatin Sodium, and Simvastatin. Review of Systems: Review of Systems is not available for this patient. Vital Signs: Vitals are not available for this patient. Performance Status: 0 - Fully active, able to carry on all predisease activities without restrictions. (ECOG) Physical Examination: ENMT - No mouth sores, no thrush, no jaundice, Respiratory - Lungs are clear to auscultation, Cardiovascular - Regular rate and rhythm of heart, Abdomen - Soft, bowel sounds present, Extremities - No visible edema. Lab/Imaging: Test performed on Oct 18, 2020 10:35 Sodium 130 mmol/L Testosterone, Total 6.2 ng/dL Potassium 3.4 mmol/L Chloride 92 mmol/L CO2 26 mmol/L Anion Gap 15.4 BUN 19 mg/dL Creatinine 1.1 mg/dL Cr Clearance (Est) 95.16 mL/min Glucose 175 mg/dL Osmolality - Calculated 277 mOsm/kg Calcium 8.9 mg/dL Protein, Total 7.2 g/dL Albumin 4.7 g/dL Globulin 2.5 g/dL Bilirubin, Total 0.8 mg/dL ALT (SGPT) 277 U/L AST (SGOT) 143 U/L Alkaline Phosphatase 88 IU/L WBC 5.4 10 3/uL RBC 4.57 10 6/uL HGB 14.8 g/dL HCT 41.6 % MCV 91.0 fL MCH 32.4 pg MCHC 35.6 g/dL RDW 11.9 % Platelet Count 203 10 3/cmm MPV 10.6 fL Neutrophils 3.56 10 3/uL Lymphocytes 1.0 10 3/uL Monocytes 0.5 10 3/uL Eosinophils 0.3 10 3/uL Basophils 0.0 10 3/uL Neutrophil % 65.5 % Lymphocyte % 19.2 % Monocyte % 9.2 % Eosinophil % 5.5 % Basophils % 0.2 % NRBC % 0 % PSA 0.822 ng/mL Impression: Very high risk prostate cancer per ultrasound-guided prostate gland biopsy done on June 04, 2020 which showed prostatic acinar adenocarcinoma involving left base, 3 cores, [place] score 4+5 group grade 5. Left middle lobe, 3 cores [place] score 4+5, group grade 5. Right apex 2 cores, [place] score 4+5 group grade 5 e.g. T2c, very high risk Fatmata score 9 with a group grade 5 and 8 cores PSA at time of diagnosis 4.61 CT scan of abdomen done on July 27, 2020 showed no evidence of pelvic lymphadenopathy Abnormal LFTs due to fatty liver, as per patient biopsy confirmed, now being followed by historic site administrator Started on neoadjuvant ADT Casodex and Zoladex was added on September 14, 2020 and concurrent radiation therapy was added in the first first week of Octobernd completed in December 2020, Casodex was discontinued on December 20, 2020 While continue with 3 monthly Zoladex, 1 month after completion of radiation therapy, Taxotere 75 mg/m??? every 3 weeks x 6 is scheduled And will continue with 3 monthly Zoladex for 24 months Plan: Discussed with patient regarding his labs white blood count 11.2 hemoglobin 11.7 hematocrit 34.1 platelets 223,000 CMP within normal limits except glucose 269 Clinically, patient doing well with no new signs symptoms, at this point we will proceed with cycle #2/6 Taxotere with Neulasta support to prevent chemotherapy-induced neutropenia, will also consider dose reduction by 10% to minimize chemotherapy related toxicity and patient return to clinic in 2 weeks with CBC CMP Signed By: Aad Aden M.D. <<Signature on File>>
[2021-02-08] MEDS: pegfilgrastim 6 mg/0.6 mL Kit (onpro) SUBCUT (15:15)
[2021-02-20 15:04] LABS: Alanine Aminotransferase 130 U/L (0-41); Albumin Level 3.8 g/dL (3.5-5.2); Alkaline Phosphatase 102 IU/L (40-130); Anion Gap 14.7 (5-19); Aspartate Amino Transferase 56 U/L (0-40); Blood Urea Nitrogen 22 mg/dL (8-23); Calcium 8.4 mg/dL (8.5-10.5); Carbon Dioxide 24 mmol/L (22-29); Chloride 103 mmol/L (98-107); Globulin 1.9 g/dL (1.3-4.6); Glucose 282 mg/dL (65-115); Osmolality Calculated 298 mOsm/kg (285-295); Potassium 4.7 mmol/L (3.5-5.1); Sodium 137 mmol/L (136-145); Total Bilirubin 0.4 mg/dL (0.15-1.2); Total Protein 5.7 g/dL (6.6-8.7)
[2021-02-20 16:24] LABS: Basophils % 0.2 %; Eosinophils # 0.1 10^3/uL (0.0-0.8); Eosinophils % 0.6 %; Hematocrit 33.1 % (42.0-52.0); Hemoglobin 10.8 g/dL (11.7-16.6); Lymphocytes # 0.4 10^3/uL (0.8-4.8); Lymphocytes % 3.1 %; Mean Corpuscular HGB Conc 32.6 g/dL (30.0-36.0); Mean Corpuscular Hemoglobin 34.2 pg (28.0-34.0); Mean Corpuscular Volume 104.7 fl (80-94); Mean Platelet Volume 10.8 fL (7.4-10.4); Monocytes # 0.5 10^3/uL (0.2-0.9); Monocytes % 4.2 %; Neutrophils # 11.02 10^3/uL (1.8-7.7); Neutrophils % 86.3 %; Nucleated Red Blood Cells # 0.1 /100WBC; Nucleated Red Blood Cells % 0.7 %; Platelet Count 97 10^3/cmm (130-400); Red Blood Count 3.16 10^6/uL (4.1-5.3); White Blood Count 12.8 10^3/uL (4.0-10.0)
[2021-02-20 17:15] LABS: Slide Review Slide Review Perform
--- NOTE | 2021-02-21 11:39 | ONC FU_ITS ---
Dr. Aden follow up note Patient: Barrera Menendez Unit #: [id number]: 1950 Dicatated By: Ada Aden M.D.Date of Visit:Feb 21, 2021 Onc Med Follow-up/Prog Note History of Present Illness: Mr. Menendez is a 70-year-old gentleman with a history of mildly elevated PSA in the range of 4+. He eventually underwent ultrasound-guided prostate biopsy on June 04, 2020 which showed high-grade prostatic acinar adenocarcinoma [place] score 9, group grade 5. Three cores from left prostate base showed 5 to 80% involvement- [place] score 4+5 and 3 cores from left mid gland shows 60 to 90% involvement with [place] score 4+5 again group grade 5. Two cores from right apex shows 5 to 50% involvement with adenocarcinoma, [place] score 4+5 group grade 5 e.g. T2c, NX, very high risk ([place] score 4+5, group grade 5 in [address] scan of abdomen pelvis was done on July 27, 2020 which showed no evidence of retroperitoneal lymphadenopathy and no other abnormality seen. Mr Menendez denies any history of hematuria except one episode after the prostate biopsy, no dysuria, no bony pains, no weight loss. Patient has history of heavy alcohol use but quit drinking in 1993 now occasional drinker. No history of smoking.History of fatty liver with abnormal LFTs status post liver biopsy No family history of prostate cancer but patient has 2 boys, healthy otherwise. He has been advised to pursue androgen deprivation with Casodex and Zoladex. He began Casodex 50 mg around August 31, 2020 and his first dose of Zoladex was on September 14, 2020.,, Concurrent radiation therapy was added in the first week of October 2020 and completed in December 2020, Casodex was discontinued on December 20, 2020 while continue with 3 monthly Zoladex Being high risk, Taxotere 75 mg/m??? every 3-week x 6 was started on January 04, 2021 Came for follow-up, denies any specific complaints, no fever chills, no nausea or vomiting, no diarrhea or constipation tolerated second cycle of chemotherapy with Taxotere well Medications: amLODIPine Besylate 1 Tablet (of 10 mg) Tablet Oral daily, Aspirin 1 Tablet (of 325 mg) Oral daily, Atenolol 1 Tablet (of 100 mg) Oral daily, hydroCHLOROthiazide 1 Tablet (of 25 mg) Tablet Oral daily, Losartan Potassium 1 Tablet (of 100 mg) Oral daily Allergies: Colestipol HCl, Gemfibrozil, Lisinopril, Lovastatin, Pravastatin Sodium, and Simvastatin. Review of Systems: Review of Systems is not available for this patient. Vital Signs: Performed on Feb 21, 2021 11:35 Height - 70.00 in Weight - 232.6 lbs (LOW) BSA - 2.23 sq.m BMI - 33.37 (HIGH) Temperature - 97.6 F (LOW) Pulse - 82 /min Respiration - 18 /min BP - 153/78 mm(hg) (HIGH) O2 Sat - 96 % Pain - 0 Fatigue - 5 Performance Status: 0 - Fully active, able to carry on all predisease activities without restrictions. (ECOG) Physical Examination: ENMT - No mouth sores, no thrush, no jaundice, Respiratory - Lungs are clear to auscultation, Cardiovascular - Regular rate and rhythm of heart, Abdomen - Soft, bowel sounds present, Extremities - No visible edema. Lab/Imaging: Test performed on Oct 18, 2020 10:35 Sodium 130 mmol/L Testosterone, Total 6.2 ng/dL Potassium 3.4 mmol/L Chloride 92 mmol/L CO2 26 mmol/L Anion Gap 15.4 BUN 19 mg/dL Creatinine 1.1 mg/dL Cr Clearance (Est) 95.16 mL/min Glucose 175 mg/dL Osmolality - Calculated 277 mOsm/kg Calcium 8.9 mg/dL Protein, Total 7.2 g/dL Albumin 4.7 g/dL Globulin 2.5 g/dL Bilirubin, Total 0.8 mg/dL ALT (SGPT) 277 U/L AST (SGOT) 143 U/L Alkaline Phosphatase 88 IU/L WBC 5.4 10 3/uL RBC 4.57 10 6/uL HGB 14.8 g/dL HCT 41.6 % MCV 91.0 fL MCH 32.4 pg MCHC 35.6 g/dL RDW 11.9 % Platelet Count 203 10 3/cmm MPV 10.6 fL Neutrophils 3.56 10 3/uL Lymphocytes 1.0 10 3/uL Monocytes 0.5 10 3/uL Eosinophils 0.3 10 3/uL Basophils 0.0 10 3/uL Neutrophil % 65.5 % Lymphocyte % 19.2 % Monocyte % 9.2 % Eosinophil % 5.5 % Basophils % 0.2 % NRBC % 0 % PSA 0.822 ng/mL Impression: Very high risk prostate cancer per ultrasound-guided prostate gland biopsy done on June 04, 2020 which showed prostatic acinar adenocarcinoma involving left base, 3 cores, [place] score 4+5 group grade 5. Left middle lobe, 3 cores [place] score 4+5, group grade 5. Right apex 2 cores, [place] score 4+5 group grade 5 e.g. T2c, very high risk [place] score 9 with a group grade 5 and 8 cores PSA at time of diagnosis 4.61 CT scan of abdomen done on July 27, 2020 showed no evidence of pelvic lymphadenopathy Abnormal LFTs due to fatty liver, as per patient biopsy confirmed, now being followed by light armored vehicle officer Started on neoadjuvant ADT Casodex and Zoladex was added on September 14, 2020 and concurrent radiation therapy was added in the first first week of Octobernd completed in December 2020, Casodex was discontinued on December 20, 2020 While continue with 3 monthly Zoladex, 1 month after completion of radiation therapy, Taxotere 75 mg/m??? every 3 weeks x 6 is scheduled And will continue with 3 monthly Zoladex for 24 months Plan: Discussed with patient regarding his labs white blood count 12.8 hemoglobin 1010.8 hematocrit 33.1 platelets 97,000 CMP within normal limit except glucose 282, ALT 30 compared to 117 previously and 219 on December 20, 2020 AST 56 compared to 46 previously, bilirubin within normal range Clinically, patient doing well with no new signs symptom, tolerating systemic adjuvant chemotherapy with Taxotere well and follow-up labs shows progressive thrombocytopenia probably due to chemotherapy but his leukocytosis is probably due to Neulasta as patient has no signs symptom suggestive of infection, there is a mild drop in his hemoglobin probably due to chemotherapy but there is no sign of gross bleeding, will continue to monitor as far as abnormal transaminases concerned etiology unclear, will get abdominal sonogram and also consider Taxotere dose reduction by 20% with next cycle and patient return to clinic in 1 week with CBC CMP and with right upper quadrant sonogram^ As far as hyperglycemia is concerned, patient was advised to monitor his diet and follow sliding scale and also discussed with PMD regarding his Metformin as patient said he stopped taking it because it caused diarrhea.] Signed By: Ada Aden M.D. <<Signature on File>>
[2021-02-28 15:19] LABS: Basophils % 0.4 %; Eosinophils # 0.1 10^3/uL (0.0-0.8); Eosinophils % 0.9 %; Hematocrit 34.7 % (42.0-52.0); Hemoglobin 11.4 g/dL (11.7-16.6); Lymphocytes # 0.4 10^3/uL (0.8-4.8); Lymphocytes % 3.9 %; Mean Corpuscular HGB Conc 32.9 g/dL (30.0-36.0); Mean Corpuscular Hemoglobin 33.7 pg (28.0-34.0); Mean Corpuscular Volume 102.7 fl (80-94); Mean Platelet Volume 10.1 fL (7.4-10.4); Monocytes # 0.2 10^3/uL (0.2-0.9); Monocytes % 1.8 %; Neutrophils # 9.32 10^3/uL (1.8-7.7); Neutrophils % 90.9 %; Nucleated Red Blood Cells % 0.3 %; Platelet Count 211 10^3/cmm (130-400); Red Blood Count 3.38 10^6/uL (4.1-5.3); Red Cell Distribution Width 13.3 % (12.1-15.1); White Blood Count 10.3 10^3/uL (4.0-10.0)
[2021-02-28 15:40] LABS: Alanine Aminotransferase 115 U/L (0-41); Albumin Level 3.9 g/dL (3.5-5.2); Alkaline Phosphatase 79 IU/L (40-130); Anion Gap 15.6 (5-19); Aspartate Amino Transferase 43 U/L (0-40); Blood Urea Nitrogen 23 mg/dL (8-23); Carbon Dioxide 23 mmol/L (22-29); Chloride 101 mmol/L (98-107); Globulin 2.1 g/dL (1.3-4.6); Glucose 225 mg/dL (65-115); Osmolality Calculated 291 mOsm/kg (285-295); Potassium 4.6 mmol/L (3.5-5.1); Sodium 135 mmol/L (136-145); Total Bilirubin 0.5 mg/dL (0.15-1.2)
[2021-03-01] MEDS: famotidine 20 mg/2 mL INJ IVP (12:12)
[2021-03-01] MEDS: diphenhydrAMINE 50 mg/mL SDV 1mL 25 MG IV (12:14)
[2021-03-01] MEDS: palonosetron 0.25 mg/5 mL SDV IV (12:18)
[2021-03-01] MEDS: pegfilgrastim 6 mg/0.6 mL Kit (onpro) SUBCUT (13:50)
--- NOTE | 2021-03-04 18:33 | ONC FU_ITS ---
Dr. Aden follow up note Patient: Barrera Menendez Unit #: [id number]: 1950 Dicatated By: Ada Aden M.D.Date of Visit:Mar 01, 2021 Onc Med Follow-up/Prog Note History of Present Illness: Mr. Menendez is a 70-year-old gentleman with a history of mildly elevated PSA in the range of 4+. He eventually underwent ultrasound-guided prostate biopsy on June 04, 2020 which showed high-grade prostatic acinar adenocarcinoma [place] score 9, group grade 5. Three cores from left prostate base showed 5 to 80% involvement- [place] score 4+5 and 3 cores from left mid gland shows 60 to 90% involvement with [place] score 4+5 again group grade 5. Two cores from right apex shows 5 to 50% involvement with adenocarcinoma, [place] score 4+5 group grade 5 e.g. T2c, NX, very high risk ([place] score 4+5, group grade 5 in [address] scan of abdomen pelvis was done on July 27, 2020 which showed no evidence of retroperitoneal lymphadenopathy and no other abnormality seen. Mr Menendez denies any history of hematuria except one episode after the prostate biopsy, no dysuria, no bony pains, no weight loss. Patient has history of heavy alcohol use but quit drinking in 1993 now occasional drinker. No history of smoking.History of fatty liver with abnormal LFTs status post liver biopsy No family history of prostate cancer but patient has 2 boys, healthy otherwise. He has been advised to pursue androgen deprivation with Casodex and Zoladex. He began Casodex 50 mg around August 31, 2020 and his first dose of Zoladex was on September 14, 2020.,, Concurrent radiation therapy was added in the first week of October 2020 and completed in December 2020, Casodex was discontinued on December 20, 2020 while continue with 3 monthly Zoladex Being high risk, Taxotere 75 mg/m??? every 3-week x 6 was started on January 04, 2021 Came for follow-up, denies any specific complaints, no fever chills, no nausea or vomiting, no diarrhea constipation, no peripheral numbness, tolerating 3 weekly Taxotere well otherwise Medications: amLODIPine Besylate 1 Tablet (of 10 mg) Tablet Oral daily, Aspirin 1 Tablet (of 325 mg) Oral daily, Atenolol 1 Tablet (of 100 mg) Oral daily, hydroCHLOROthiazide 1 Tablet (of 25 mg) Tablet Oral daily, Losartan Potassium 1 Tablet (of 100 mg) Oral daily Allergies: Colestipol HCl, Gemfibrozil, Lisinopril, Lovastatin, Pravastatin Sodium, and Simvastatin. Review of Systems: Review of Systems is not available for this patient. Vital Signs: Performed on Mar 01, 2021 11:29 Height - 70.00 in Weight - 229.8 lbs (LOW) BSA - 2.21 sq.m BMI - 32.97 (HIGH) Temperature - 98.2 F (LOW) Pulse - 88 /min Respiration - 18 /min BP - 149/75 mm(hg) (HIGH) O2 Sat - 98 % Pain - 0 Fatigue - 0 Performance Status: 0 - Fully active, able to carry on all predisease activities without restrictions. (ECOG) Physical Examination: ENMT - No mouth sores, no thrush, no jaundice, Respiratory - Lungs are clear to auscultation, Cardiovascular - Regular rate and rhythm of heart, Abdomen - Soft, bowel sounds present, Extremities - No visible edema or rash. Lab/Imaging: Test performed on Oct 18, 2020 10:35 Sodium 130 mmol/L Testosterone, Total 6.2 ng/dL Potassium 3.4 mmol/L Chloride 92 mmol/L CO2 26 mmol/L Anion Gap 15.4 BUN 19 mg/dL Creatinine 1.1 mg/dL Cr Clearance (Est) 95.16 mL/min Glucose 175 mg/dL Osmolality - Calculated 277 mOsm/kg Calcium 8.9 mg/dL Protein, Total 7.2 g/dL Albumin 4.7 g/dL Globulin 2.5 g/dL Bilirubin, Total 0.8 mg/dL ALT (SGPT) 277 U/L AST (SGOT) 143 U/L Alkaline Phosphatase 88 IU/L WBC 5.4 10 3/uL RBC 4.57 10 6/uL HGB 14.8 g/dL HCT 41.6 % MCV 91.0 fL MCH 32.4 pg MCHC 35.6 g/dL RDW 11.9 % Platelet Count 203 10 3/cmm MPV 10.6 fL Neutrophils 3.56 10 3/uL Lymphocytes 1.0 10 3/uL Monocytes 0.5 10 3/uL Eosinophils 0.3 10 3/uL Basophils 0.0 10 3/uL Neutrophil % 65.5 % Lymphocyte % 19.2 % Monocyte % 9.2 % Eosinophil % 5.5 % Basophils % 0.2 % NRBC % 0 % PSA 0.822 ng/mL Impression: Very high risk prostate cancer per ultrasound-guided prostate gland biopsy done on June 04, 2020 which showed prostatic acinar adenocarcinoma involving left base, 3 cores, [place] score 4+5 group grade 5. Left middle lobe, 3 cores [place] score 4+5, group grade 5. Right apex 2 cores, [place] score 4+5 group grade 5 e.g. T2c, very high risk [place] score 9 with a group grade 5 and 8 cores PSA at time of diagnosis 4.61 CT scan of abdomen done on July 27, 2020 showed no evidence of pelvic lymphadenopathy Abnormal LFTs due to fatty liver, as per patient biopsy confirmed, now being followed by esl instructional assistant Started on neoadjuvant ADT Casodex and Zoladex was added on September 14, 2020 and concurrent radiation therapy was added in the first first week of Octobernd completed in December 2020, Casodex was discontinued on December 20, 2020 While continue with 3 monthly Zoladex, 1 month after completion of radiation therapy, Taxotere 75 mg/m??? every 3 weeks x 6 is scheduled And will continue with 3 monthly Zoladex for 24 months Plan: Discussed with patient regarding his labs white blood count 10.3 hemoglobin 11.4 hematocrit 34.7 platelets 211,000 CMP within normal limit except ALT which is 115 compared to 130 previously and AST 43 compared to 56 previously with a normal bilirubin and alk phos. Clinically, patient doing well with no new signs symptom, tolerating 3 weekly modified dose Taxotere well, will proceed with next dose today then he will return to clinic in 3 weeks with CBC CMP, his follow-up lab work-up shows improvement in his transaminases, patient is scheduled for liver sonogram next week, will follow. Signed By: Ada Aden M.D. <<Signature on File>>
== END 2021-03-06 23:59 | disposition home or self-care (01) ==
LOC: ONCMED 05:31
PROVIDERS: Family Provider Nurse Practitioner Family; PCP Family Medicine; Visit Provider Internal Medicine Hematology & Oncology
DX: Z51.11 Encounter for antineoplastic chemotherapy (principal); C61 Malignant neoplasm of prostate; R97.20 Elevated prostate specific antigen [PSA]; Z79.899 Other long term (current) drug therapy
CPT/HCPCS: 36415; 36591; 80053; 85025; 96367; 96372; 96375; 96377; 96413; 99214; 99215; J1100; J1200; J2469; J2505; J3490; J7050; J9171

== ENCOUNTER 2021-03-07 06:34 | Outpatient (CLI) | payer OTHER, SELFPAY ==
--- NOTE | 2021-03-07 06:59 | US_ITS ---
WS: [id number] Complete ABDOMINAL ULTRASOUND HISTORY: ELEVATED LIVER ENZYMES; MALIGNANT NEOPLASM PROSTATE COMPARISON: None available. Liver: 18.5 cm in length. Liver is slightly enlarged. Mild coarsened echotexture from hepatic steatos is. No mass or bile duct dilatation. Gallbladder: Normally distended with no gallstones, wall thickening or pericholecystic fluid. Gallbladder wall thickness: 0.2 cm. Pancreas: Not well visualized. CBD: 0.6 cm. Right kidney: 7.5 cm x 5.7 cm x 4.6 cm. Mild atrophy. No hydronephrosis. Cortex is normal. Left kidney: 9.8 cm x 5.3 cm x 5.4 cm. No mass, cortical thickening or hydronephrosis. Spleen: Normal size and echogenicity. Abdominal aorta and IVC are within normal limits. No ascites. US/US abdomen complete* [id number] IMPRESSION: 1. Mild hepatomegaly and hepatic steatosis. 2. No liver lesions. 3. Normal gallbladder. 4. Mild RIGHT renal atrophy.
== END 2021-03-07 06:35 | disposition home or self-care (01) ==
PROVIDERS: PCP Family Medicine; Visit Provider Internal Medicine Hematology & Oncology
DX: R74.8 Abnormal levels of other serum enzymes (principal); C61 Malignant neoplasm of prostate; R16.0 Hepatomegaly, not elsewhere classified; K76.0 Fatty (change of) liver, not elsewhere classified; N26.1 Atrophy of kidney (terminal)
CPT/HCPCS: 76700

== ENCOUNTER 2021-03-27 06:21 | Outpatient (RCR) | payer OTHER, SELFPAY ==
[2021-03-26 10:30] LABS: Basophils % 0.2 %; Eosinophils % 0.2 %; Hematocrit 35.1 % (42.0-52.0); Hemoglobin 11.9 g/dL (11.7-16.6); Lymphocytes # 0.3 10^3/uL (0.8-4.8); Lymphocytes % 4.2 %; Mean Corpuscular HGB Conc 33.9 g/dL (30.0-36.0); Mean Corpuscular Hemoglobin 33.9 pg (28.0-34.0); Mean Platelet Volume 9.6 fL (7.4-10.4); Monocytes # 0.1 10^3/uL (0.2-0.9); Neutrophils # 7.49 10^3/uL (1.8-7.7); Nucleated Red Blood Cells % 0 %; Platelet Count 190 10^3/cmm (130-400); Red Blood Count 3.51 10^6/uL (4.1-5.3); White Blood Count 8.1 10^3/uL (4.0-10.0)
[2021-03-26 10:56] LABS: Alanine Aminotransferase 102 U/L (0-41); Alkaline Phosphatase 79 IU/L (40-130); Anion Gap 15.3 (5-19); Aspartate Amino Transferase 42 U/L (0-40); Blood Urea Nitrogen 16 mg/dL (8-23); Calcium 9.2 mg/dL (8.5-10.5); Carbon Dioxide 23 mmol/L (22-29); Chloride 104 mmol/L (98-107); Globulin 2.1 g/dL (1.3-4.6); Glucose 297 mg/dL (65-115); Osmolality Calculated 298 mOsm/kg (285-295); Potassium 4.3 mmol/L (3.5-5.1); Sodium 138 mmol/L (136-145); Total Bilirubin 0.5 mg/dL (0.15-1.2); Total Protein 6.1 g/dL (6.6-8.7)
[2021-03-26] MEDS: sodium chloride 0.9% 250 ML 75 ML IV (11:30)
[2021-03-26] MEDS: famotidine 20 mg/2 mL INJ IVP (11:32)
[2021-03-26] MEDS: diphenhydrAMINE 50 mg/mL SDV 1mL 25 MG IV (11:34)
[2021-03-26] MEDS: palonosetron 0.25 mg/5 mL SDV IV (11:38)
--- NOTE | 2021-05-25 11:34 | ONC FU_ITS ---
Dr. Aden follow up note Patient: Barrera Menendez Unit #: [id number]: 1950 Dicatated By: Ada Aden M.D.Date of Visit:Mar 26, 2021 Onc Med Follow-up/Prog Note History of Present Illness: Mr. Menendez is a 70-year-old gentleman with a history of mildly elevated PSA in the range of 4+. He eventually underwent ultrasound-guided prostate biopsy on June 04, 2020 which showed high-grade prostatic acinar adenocarcinoma [place] score 9, group grade 5. Three cores from left prostate base showed 5 to 80% involvement- [place] score 4+5 and 3 cores from left mid gland shows 60 to 90% involvement with [place] score 4+5 again group grade 5. Two cores from right apex shows 5 to 50% involvement with adenocarcinoma, [place] score 4+5 group grade 5 e.g. T2c, NX, very high risk ([place] score 4+5, group grade 5 in [address] scan of abdomen pelvis was done on July 27, 2020 which showed no evidence of retroperitoneal lymphadenopathy and no other abnormality seen. Mr Menendez denies any history of hematuria except one episode after the prostate biopsy, no dysuria, no bony pains, no weight loss. Patient has history of heavy alcohol use but quit drinking in 1993 now occasional drinker. No history of smoking.History of fatty liver with abnormal LFTs status post liver biopsy No family history of prostate cancer but patient has 2 boys, healthy otherwise. He has been advised to pursue androgen deprivation with Casodex and Zoladex. He began Casodex 50 mg around August 31, 2020 and his first dose of Zoladex was on September 14, 2020.,, Concurrent radiation therapy was added in the first week of October 2020 and completed in December 2020, Casodex was discontinued on December 20, 2020 while continue with 3 monthly Zoladex Being very high risk, Taxotere 75 mg/m??? every 3-week x 6 was started on January 04, 2021 Came for follow-up, denies any specific complaints, no fever chills, no nausea or vomiting, no diarrhea constipation, no peripheral numbness, no mouth sores, no jaundice, no new bony pains, tolerating systemic therapy with Taxotere well Medications: amLODIPine Besylate 1 Tablet (of 10 mg) Tablet Oral daily, Aspirin 1 Tablet (of 325 mg) Oral daily, Atenolol 1 Tablet (of 100 mg) Oral daily, hydroCHLOROthiazide 1 Tablet (of 25 mg) Tablet Oral daily, Loratadine 1 Tablet (of 10 mg) Oral daily, Losartan Potassium 1 Tablet (of 100 mg) Oral daily Allergies: Colestipol HCl, Gemfibrozil, Lisinopril, Lovastatin, Pravastatin Sodium, and Simvastatin. Review of Systems: Review of Systems is not available for this patient. Vital Signs: Performed on Mar 26, 2021 13:10 Height - 70.00 in Temperature - 97.6 F (LOW) Pulse - 75 /min Respiration - 18 /min BP - 149/84 mm(hg) (HIGH) O2 Sat - 97 % Performed on Mar 26, 2021 11:29 Height - 70.00 in Weight - 239.6 lbs (HIGH) BSA - 2.25 sq.m BMI - 34.38 (HIGH) Temperature - 96.5 F (LOW) Pulse - 87 /min Respiration - 18 /min BP - 168/85 mm(hg) (HIGH) O2 Sat - 97 % Pain - 0 Fatigue - 0 Performance Status: 1 - No physically strenuous activity, but ambulatory and able to carry out light or sedentary work (e.g. office work, light house work). (ECOG) Physical Examination: ENMT - No mouth sores, no thrush, no jaundice, Cardiovascular - Regular rate and rhythm of heart , Abdomen - Soft, bowel sounds present, Extremities - No visible edema. Lab/Imaging: Test performed on May 07, 2021 10:07 Sodium 136 mmol/L Testosterone, Total < 2.5 ng/dL Potassium 4.4 mmol/L Chloride 97 mmol/L Est Avg Glucose (eAG) 189 mg/dL CO2 23 mmol/L Anion Gap 20.4 BUN 21 mg/dL Creatinine 1.0 mg/dL Cr Clearance (Est) 101.3700 mL/min Glucose 414 mg/dL Osmolality - Calculated 303 mOsm/kg Calcium 9.2 mg/dL Protein, Total 6.3 g/dL Albumin 3.9 g/dL Globulin 2.4 g/dL Bilirubin, Total 0.4 mg/dL ALT (SGPT) 56 U/L AST (SGOT) 25 U/L Alkaline Phosphatase 75 IU/L Hemoglobin A1C % 8.2 % WBC 15.4 10 3/uL RBC 3.64 10 6/uL HGB 12.0 g/dL HCT 34.9 % MCV 95.9 fl MCH 33.0 pg MCHC 34.4 g/dL RDW 13.8 % Platelet Count 221 10 3/cmm MPV 9.6 fL Neutrophils 14.12 10 3/uL Lymphocytes 0.5 10 3/uL Monocytes 0.5 10 3/uL Eosinophils 0.0 10 3/uL Basophils 0.0 10 3/uL Neutrophil % 92.0 % Lymphocyte % 3.3 % Monocyte % 3.3 % Eosinophil % 0.0 % Basophils % 0.1 % NRBC % 0 % PSA < 0.006 ng/mL Impression: Very high risk prostate cancer per ultrasound-guided prostate gland biopsy done on June 04, 2020 which showed prostatic acinar adenocarcinoma involving left base, 3 cores, [place] score 4+5 group grade 5. Left middle lobe, 3 cores [place] score 4+5, group grade 5. Right apex 2 cores, [place] score 4+5 group grade 5 e.g. 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 every 3 weeks x 6 is scheduled And will continue with 3 monthly Zoladex for 24 months Plan: .Discussed with patient regarding his labs white blood count 8.1 hemoglobin 11.9 hematocrit 35.1 platelets 190,000 CMP within normal limits Clinically, patient doing well with no new signs symptom suggestive of recurrence of disease, tolerating Taxotere well, will proceed with next cycle #4/6 with 3 weekly Taxotere today then return to clinic in 3 weeks with CBC CMP and if reasonable for next cycle of Taxotere. Signed By: Ada Aden M.D. <<Signature on File>>
== END 2021-04-05 23:59 | disposition home or self-care (01) ==
LOC: ONCMED 06:21
PROVIDERS: Internal Medicine Hematology & Oncology; PCP Family Medicine; Visit Provider Internal Medicine Medical Oncology
DX: Z51.11 Encounter for antineoplastic chemotherapy (principal); C61 Malignant neoplasm of prostate; R73.9 Hyperglycemia, unspecified; Z79.899 Other long term (current) drug therapy
CPT/HCPCS: 80053; 85025; 96367; 96372; 96375; 96413; 99215; J1100; J1200; J2469; J2505; J3490; J7050; J9171

== ENCOUNTER 2021-04-23 06:24 | Outpatient (RCR) | payer OTHER, SELFPAY ==
[2021-04-16 10:30] LABS: Basophils % 0.1 %; Hematocrit 32.4 % (42.0-52.0); Lymphocytes # 0.4 10^3/uL (0.8-4.8); Lymphocytes % 2.8 %; Mean Platelet Volume 9.5 fL (7.4-10.4); Monocytes # 0.4 10^3/uL (0.2-0.9); Monocytes % 2.5 %; Neutrophils # 13.74 10^3/uL (1.8-7.7); Neutrophils % 92.9 %; Nucleated Red Blood Cells % 0 %; Platelet Count 237 10^3/cmm (130-400); Red Blood Count 3.24 10^6/uL (4.1-5.3); Red Cell Distribution Width 14.9 % (12.1-15.1); White Blood Count 14.8 10^3/uL (4.0-10.0)
[2021-04-16 11:05] LABS: Alanine Aminotransferase 57 U/L (0-41); Albumin Level 3.8 g/dL (3.5-5.2); Alkaline Phosphatase 74 IU/L (40-130); Anion Gap 17.1 (5-19); Aspartate Amino Transferase 21 U/L (0-40); Blood Urea Nitrogen 22 mg/dL (8-23); Calcium 8.8 mg/dL (8.5-10.5); Carbon Dioxide 21 mmol/L (22-29); Chloride 103 mmol/L (98-107); Globulin 2.4 g/dL (1.3-4.6); Glucose 336 mg/dL (65-115); Osmolality Calculated 301 mOsm/kg (285-295); Potassium 4.1 mmol/L (3.5-5.1); Sodium 137 mmol/L (136-145); Total Bilirubin 0.5 mg/dL (0.15-1.2); Total Protein 6.2 g/dL (6.6-8.7)
[2021-04-16] MEDS: diphenhydrAMINE 50 mg/mL SDV 1mL 25 MG IV (12:49)
[2021-04-16] MEDS: famotidine 20 mg/2 mL INJ IVP (12:50)
[2021-04-16] MEDS: palonosetron 0.25 mg/5 mL SDV IV (12:51)
[2021-04-16] MEDS: sodium chloride 0.9% 250 ML 75 ML IV (12:51)
[2021-04-16 14:08] LABS: Testosterone Total 2.5 ng/dL (193-740)
[2021-04-16 14:10] LABS: Prostate Specific Antigen 0.006 ng/mL (0-4)
--- NOTE | 2021-04-22 15:47 | ONC FU_ITS ---
[facility] Patient Note Patient: Barrera Menendez Unit #: [id number]: 1950 Dictated By: Familia PedrazaDate of Visit: Apr 16, 2021 Onc MED Follow-Up/Prog Note Chief Complaint: Prostate cancer History of Present Illness: Mr. Menendez is a 70-year-old gentleman with a history of mildly elevated PSA in the range of 4+. He eventually underwent ultrasound-guided prostate biopsy on June 04, 2020 which showed high-grade prostatic acinar adenocarcinoma [place] score 9, group grade 5. Three cores from left prostate base showed 5 to 80% involvement- [place] score 4+5 and 3 cores from left mid gland shows 60 to 90% involvement with [place] score 4+5 again group grade 5. Two cores from right apex shows 5 to 50% involvement with adenocarcinoma, [place] score 4+5 group grade 5 e.g. T2c, NX, very high risk ([place] score 4+5, group grade 5 in [address] scan of abdomen pelvis was done on July 27, 2020 which showed no evidence of retroperitoneal lymphadenopathy and no other abnormality seen. Mr Menendez denies any history of hematuria except one episode after the prostate biopsy, no dysuria, no bony pains, no weight loss. Patient has history of heavy alcohol use but quit drinking in 1993 now occasional drinker. No history of smoking.History of fatty liver with abnormal LFTs status post liver biopsy No family history of prostate cancer but patient has 2 boys, healthy otherwise. He was advised to pursue androgen deprivation with Casodex and Zoladex. He began Casodex 50 mg around August 31, 2020 and his first dose of Zoladex was on September 14, 2020. Concurrent radiation therapy was added in the first week of October 2020 and completed in December 2020. Casodex was discontinued on December 20, 2020 and he continued with 3 monthly Zoladex. Given that Mr Menendez is considered very high risk, Dr Aden recommended that he proceed with Taxotere 75 mg/m??? every 3-week x 6 cycles. His first cycle was started on January 04, 2021. He has been tolerating it well thus far. He has now completed 4 of 6 planned cycles. He has been supported with Neulasta and his counts have remained adequate for treatment. Mr Menendez is here today for followup. He has no new concerns today. He denies any fever or chills. He states he has not had nausea or vomiting. He denies any new pain. He states his appetite is good and his energy is good. He has been doing some work around his house and tolerates this well. He states his bowel and bladder function is normal for him. He states that he has some tingling in his fingers occassionally but it is not worsening and does not affect his ADLs. His ECOG is 0. Past Medical History: Hypertension Past Surgical History: Colonoscopy Right leg surgery Covid vaccine #2 moderna in 2020 Covid vaccine #1 moderna in 2020 Allergies: Colestipol HCl, Gemfibrozil, Lisinopril, Lovastatin, Pravastatin Sodium, and Simvastatin. Medications: amLODIPine Besylate 1 Tablet (of 10 mg) Tablet Oral daily Aspirin 1 Tablet (of 325 mg) Oral daily Atenolol 1 Tablet (of 100 mg) Oral daily hydroCHLOROthiazide 1 Tablet (of 25 mg) Tablet Oral daily Loratadine 1 Tablet (of 10 mg) Oral daily Losartan Potassium 1 Tablet (of 100 mg) Oral daily Family History: Social History: Mr. Menendez is . Mr. Menendez has never smoked. He quit drinking 10 years ago. Review Of Symptoms: <See Above> Vital Signs: Performed on Apr 16, 2021 12:05 Height - 70.00 in Weight - 239.8 lbs (HIGH) BSA - 2.25 sq.m BMI - 34.41 (HIGH) Temperature - 97.7 F (LOW) Pulse - 99 /min Respiration - 18 /min BP - 155/74 mm(hg) (HIGH) O2 Sat - 97 % Pain - 0 Fatigue - 2,0 - Fully active, able to carry on all predisease activities without restrictions. (ECOG) Physical Examination: Constitutional Alert, oriented, no acute distress. Skin pink, warm and dry. Head Normocephalic; atraumatic. Eyes Conjunctivae and sclerae are clear and without icterus. Pupils are reactive and equal. ENMT No oral exudates, ulcers, masses, thrush or mucositis. Oropharynx clear. Tongue normal. Neck Supple without masses or thyromegaly. No jugular venous distension. Hematologic/Lymphatic No petechiae or purpura. No tender or palpable lymph nodes in the cervical or supraclavicular areas. Respiratory Lungs are clear to auscultation without rhonchi or wheezing. Cardiovascular Regular rate and rhythm of heart without murmurs,clicks, gallops or rubs. Abdomen Non-tender, non-distended, no masses or ascites. Good bowel sounds noted in all quads. No guarding or rebound tenderness. No pulsatile masses. Back/Spine Non-tender to palpation. Extremities No visible deformities, no cyanosis, clubbing or edema. Musculoskeletal No tenderness or swelling, normal range of motion without obvious weakness. Integumentary No rashes or lesions. Neurologic No sensory or motor deficits, normal cerebellar function, normal gait. Psychiatric Alert and oriented times three. Coherent speech. Verbalizes understanding of our discussions today. Laboratory:Test performed on Apr 16, 2021 09:55 Sodium 137 mmol/L Testosterone, Total 2.5 ng/dL Potassium 4.1 mmol/L Chloride 103 mmol/L CO2 21 mmol/L Anion Gap 17.1 BUN 22 mg/dL Creatinine 1.0 mg/dL Cr Clearance (Est) 101.3700 mL/min Glucose 336 mg/dL Osmolality - Calculated 301 mOsm/kg Calcium 8.8 mg/dL Protein, Total 6.2 g/dL Albumin 3.8 g/dL Globulin 2.4 g/dL Bilirubin, Total 0.5 mg/dL ALT (SGPT) 57 U/L AST (SGOT) 21 U/L Alkaline Phosphatase 74 IU/L WBC 14.8 10 3/uL RBC 3.24 10 6/uL HGB 11.0 g/dL HCT 32.4 % MCV 100.0 fl MCH 34.0 pg MCHC 34.0 g/dL RDW 14.9 % Platelet Count 237 10 3/cmm MPV 9.5 fL Neutrophils 13.74 10 3/uL Lymphocytes 0.4 10 3/uL Monocytes 0.4 10 3/uL Eosinophils 0.0 10 3/uL Basophils 0.0 10 3/uL Neutrophil % 92.9 % Lymphocyte % 2.8 % Monocyte % 2.5 % Eosinophil % 0.0 % Basophils % 0.1 % NRBC % 0 % PSA 0.006 ng/mL Impression: Very high risk prostate cancer per ultrasound-guided prostate gland biopsy done on June 04, 2020 which showed prostatic acinar adenocarcinoma involving left base, 3 cores, [place] score 4+5 group grade 5. Left middle lobe, 3 cores [place] score 4+5, group grade 5. Right apex 2 cores, [place] score 4+5 group grade 5 e.g. T2c, very high risk [place] score 9 with a group grade 5 and 8 cores PSA at time of diagnosis 4.61 CT scan of abdomen done on July 27, 2020 showed no evidence of pelvic lymphadenopathy Abnormal LFTs due to fatty liver, as per patient biopsy confirmed, now being followed by frame assembler Mr Menendez started on neoadjuvant ADT Casodex and Zoladex was added on September 14, 2020 and concurrent radiation therapy was added in the first first week of October 2020. This was completed in December 2020. Casodex was discontinued on December 20, 2020. He has continued with every 3 month Zoladex. 1 month after completion of radiation therapy, he began Taxotere 75 mg/m??? every 3 weeks x 6 cycles (due to high risk). His treatment plan includes continuing with every 3 month Zoladex for a total of 24 months Plan/Problems Addressed at this Visit: 1. Prostate cancer???high risk: [place] score 4+5 with group grade 5 and 8 cores. He was started on neoadjuvant ADT with Casodex beginning on August 09, 2020 and Zoladex was added on September 14, 2020. He then had concurrent radiation beginning October 16, 2020 through December 08, 2020 total dose of 78 Gy was delivered in 39 fractions encompassing 53 elapsed days. He began chemotherapy for high risk prostate cancer with Taxotere 75 mg per metered squared every 3 weeks for total dose of 6 cycles on January 04, 2021. He has tolerated it well overall. A. Proceed with planned cycle 5 Taxotere. B. Steroid compliance confirmed. C. We will plan to hold his Victivlasta support as his ANC today is 13,740. D. Today's labs reviewed in detail discussed with Mr. Menendez and a copy was given to him. WBC 14.8, hemoglobin 11, platelets turned 37,000 ANC is 13 740. Potassium 4.1 random glucose 336 (he did not want any insulin in the clinic today) his creatinine is 1.0 his ALT is improved from 102 on March 26 2021-57 and his AST is normal at 21 today. His weight is stable at 239.8. E. We will plan for Mr. Menendez to return in 3 weeks with CBC CMP and PSA. F. Mr. Menendez was encouraged to contact us in the interim should questions or problems arise. G. He did not want to pursue a flu shot here to states he gets it at the [place] [facility]. H. I did encourage him to keep a record of his glucose as it is currently running high with his treatments which is obviously related to his steroid premeds. Would like to switch him to Abraxane but he has 1 cycle left and Abraxane is currently on nationwide shortage. Signed By: Familia Pedraza-, [facility] MICHIGANCarine Aden MD <<Signature on File>>
[2021-04-23] MEDS: goserelin acetate 10.8 mg Implant SUBCUT (14:35)
== END 2021-05-06 23:59 | disposition home or self-care (01) ==
LOC: ONCMED 06:24
PROVIDERS: Nurse Practitioner; PCP Family Medicine; Visit Provider Internal Medicine Medical Oncology
DX: Z51.11 Encounter for antineoplastic chemotherapy (principal); C61 Malignant neoplasm of prostate; R97.20 Elevated prostate specific antigen [PSA]; Z79.818 Long term (current) use of other agents affecting estrogen receptors and estrogen levels; Z92.3 Personal history of irradiation
CPT/HCPCS: 80053; 84153; 84403; 85025; 96367; 96375; 96402; 96413; 99215; J1100; J1200; J2469; J3490; J7050; J9171; J9202

== ENCOUNTER 2021-05-07 06:18 | Outpatient (RCR) | payer OTHER, SELFPAY ==
[2021-05-07 10:17] LABS: Basophils % 0.1 %; Hematocrit 34.9 % (42.0-52.0); Lymphocytes # 0.5 10^3/uL (0.8-4.8); Lymphocytes % 3.3 %; Mean Corpuscular HGB Conc 34.4 g/dL (30.0-36.0); Mean Corpuscular Volume 95.9 fl (80-94); Mean Platelet Volume 9.6 fL (7.4-10.4); Monocytes # 0.5 10^3/uL (0.2-0.9); Monocytes % 3.3 %; Neutrophils # 14.12 10^3/uL (1.8-7.7); Nucleated Red Blood Cells % 0 %; Platelet Count 221 10^3/cmm (130-400); Red Blood Count 3.64 10^6/uL (4.1-5.3); Red Cell Distribution Width 13.8 % (12.1-15.1); White Blood Count 15.4 10^3/uL (4.0-10.0)
[2021-05-07 10:50] LABS: Estmated Average Glucose 189; Hemoglobin A1C 8.2 % (4.0-6.0)
[2021-05-07 10:53] LABS: Alanine Aminotransferase 56 U/L (0-41); Albumin Level 3.9 g/dL (3.5-5.2); Alkaline Phosphatase 75 IU/L (40-130); Aspartate Amino Transferase 25 U/L (0-40); Blood Urea Nitrogen 21 mg/dL (8-23); Calcium 9.2 mg/dL (8.5-10.5); Carbon Dioxide 23 mmol/L (22-29); Chloride 97 mmol/L (98-107); Globulin 2.4 g/dL (1.3-4.6); Glucose 414 mg/dL (65-115); Osmolality Calculated 303 mOsm/kg (285-295); Sodium 136 mmol/L (136-145); Total Bilirubin 0.4 mg/dL (0.15-1.2); Total Protein 6.3 g/dL (6.6-8.7)
[2021-05-07 10:57] LABS: Anion Gap 20.4 (5-19); Potassium 4.4 mmol/L (3.5-5.1)
[2021-05-07 10:58] LABS: Prostate Specific Antigen < 0.006 ng/mL (0-4)
[2021-05-07 11:29] LABS: Testosterone Total < 2.5 ng/dL (193-740)
[2021-05-07] MEDS: sodium chloride 0.9% 250 ML 75 ML IV (11:35)
[2021-05-07] MEDS: palonosetron 0.25 mg/5 mL SDV IV (11:35)
[2021-05-07] MEDS: diphenhydrAMINE 50 mg/mL SDV 1mL 25 MG IV (11:36)
[2021-05-07] MEDS: famotidine 20 mg/2 mL INJ IVP (11:38)
--- NOTE | 2021-05-07 13:58 | ONC FU_ITS ---
Dr. Benton Patient Follow-Up Note Patient: Barrera Menendez Unit #: [id number]: 1950 Dicatated By: Dino Benton M.D.Date of Visit:May 07, 2021 Onc Med Follow-up/Prog Note Chief Complaint: Prostate cancer. History of Present Illness: This is a 70-year-old man with high-grade prostatic adenocarcinoma, [place] score 9. By clinical evaluation his disease was stage IIIC (T1c, N0, M0). His cancer was initially diagnosed by ultrasound-guided biopsy on 06/04/2020. Baseline PSA was 4.61 ng/mL. He was very high risk based on his [place] score 4+5= 9. He began androgen deprivation therapy with Zoladex in combination with bicalutamide on 09/14/2020. He then began radiation to the prostate on 10/16/2020. He completed radiation on 12/08/2020 to a total dose of 7800 cGy, administered in 39 fractions. He then proceeded to adjuvant chemotherapy with 6 cycles of docetaxel, cycle 1 beginning on 01/04/2021. He has now completed 5 cycles of chemotherapy. Overall, he has tolerated it well. He says he feels pretty rough for for 5 days after treatment, but with gradual improvement thereafter. He has felt pretty good for the past week or so. He still has some fatigue, but he is able to do yard work. ECOG score is 1. He has good appetite. His weight is up 4 pounds. He has not had fever. He is having hot flashes/sweating off and on. His sinus symptoms have been managed pretty well with loratadine. He has not had sore mouth or throat. He has just occasional cough. He does get short of breath with activity. He does not complain of chest pain. He has not had any nausea. Did have some heartburn 1 day last week. Bowel function has been okay. He has not had any diarrhea. He has urinary frequency and nocturia with his steroid premedication. He has no other complaints. He has some bone pain after his Neulasta injections. He does not complain of headache or dizziness. He has just occasional numbness/tingling in his hands and feet. Medications: amLODIPine Besylate 1 Tablet (of 10 mg) Tablet Oral daily, Aspirin 1 Tablet (of 325 mg) Oral daily, Atenolol 1 Tablet (of 100 mg) Oral daily, hydroCHLOROthiazide 1 Tablet (of 25 mg) Tablet Oral daily, Loratadine 1 Tablet (of 10 mg) Oral daily, Losartan Potassium 1 Tablet (of 100 mg) Oral daily Allergies: Colestipol HCl, Gemfibrozil, Lisinopril, Lovastatin, Pravastatin Sodium, and Simvastatin. Vital Signs: Performed on May 07, 2021 11:10 Height - 70.00 in Weight - 240.6 lbs (HIGH) BSA - 2.26 sq.m BMI - 34.52 (HIGH) Temperature - 96.1 F (LOW) Pulse - 85 /min Respiration - 18 /min BP - 135/87 mm(hg) O2 Sat - 98 % Pain - 0 Fatigue - 8 Physical Examination: Constitutional - He looks pretty good generally, Eyes - Sclerae nonicteric. Conjunctivae clear, ENMT - No lesions noted in the oral cavity, Hematologic/Lymphatic - No cervical, clavicular, or axillary adenopathy, Respiratory - Lungs are clear with good air movement bilaterally, Cardiovascular - Heart rhythm is regular. There is no murmur, gallop, or rub noted, Abdomen - Mildly distended. Liver and spleen are not enlarged. There is no abdominal mass or ascites noted and there is no inguinal adenopathy, Extremities - Mild edema, Neurologic - No focal neurologic deficits noted. Lab/Imaging: Test performed on May 07, 2021 10:07 Sodium 136 mmol/L Testosterone, Total < 2.5 ng/dL Potassium 4.4 mmol/L Chloride 97 mmol/L Est Avg Glucose (eAG) 189 mg/dL CO2 23 mmol/L Anion Gap 20.4 BUN 21 mg/dL Creatinine 1.0 mg/dL Cr Clearance (Est) 101.3700 mL/min Glucose 414 mg/dL Osmolality - Calculated 303 mOsm/kg Calcium 9.2 mg/dL Protein, Total 6.3 g/dL Albumin 3.9 g/dL Globulin 2.4 g/dL Bilirubin, Total 0.4 mg/dL ALT (SGPT) 56 U/L AST (SGOT) 25 U/L Alkaline Phosphatase 75 IU/L Hemoglobin A1C % 8.2 % WBC 15.4 10 3/uL RBC 3.64 10 6/uL HGB 12.0 g/dL HCT 34.9 % MCV 95.9 fl MCH 33.0 pg MCHC 34.4 g/dL RDW 13.8 % Platelet Count 221 10 3/cmm MPV 9.6 fL Neutrophils 14.12 10 3/uL Lymphocytes 0.5 10 3/uL Monocytes 0.5 10 3/uL Eosinophils 0.0 10 3/uL Basophils 0.0 10 3/uL Neutrophil % 92.0 % Lymphocyte % 3.3 % Monocyte % 3.3 % Eosinophil % 0.0 % Basophils % 0.1 % NRBC % 0 % PSA < 0.006 ng/mL Problem List: 1. High-grade prostatic adenocarcinoma, [place] score 9, by clinical evaluation stage IIIC (T1c, N0, M0). 2. Hypertension. 3. Prior history of heavy alcohol use. Problems Addressed with this Encounter and Plan: Patient with high-grade prostatic adenocarcinoma, [place] score 9, by clinical evaluation his disease was stage IIIC (T1c, N0, M0). His cancer was initially diagnosed by ultrasound-guided biopsy on 06/04/2020. Baseline PSA was 4.61 ng/mL. He was very high risk based on his [place] score 4+5= 9. He began androgen deprivation therapy with Zoladex in combination with bicalutamide on 09/14/2020. He then began radiation to the prostate on 10/16/2020. He completed radiation on 12/08/2020 to a total dose of 7800 cGy, administered in 39 fractions. He then proceeded to adjuvant chemotherapy with 6 cycles of docetaxel, cycle 1 beginning on 01/04/2021. He has now completed 5 cycles of treatment. He has some fatigue with the chemotherapy and he has some mild neuropathy symptoms. Overall, he has tolerated it very well. He will proceed with his 6th and final cycle of adjuvant docetaxel. The dosage remains the same. He is scheduled for follow-up with Dr. Aden in 1 month. Signed By: Dino Benton M.D. <<Signature on File>>
== END 2021-06-05 23:59 | disposition home or self-care (01) ==
LOC: ONCMED 06:18
PROVIDERS: PCP Family Medicine; Visit Provider Internal Medicine Medical Oncology
DX: Z51.11 Encounter for antineoplastic chemotherapy (principal); C61 Malignant neoplasm of prostate; I10 Essential (primary) hypertension; F10.21 Alcohol dependence, in remission; Z79.899 Other long term (current) drug therapy
CPT/HCPCS: 80053; 83036; 84153; 84403; 85025; 96367; 96375; 96413; 99215; J1100; J1200; J2469; J3490; J7050; J9171

== ENCOUNTER 2021-06-08 06:40 | Outpatient (RCR) | payer OTHER, SELFPAY ==
[2021-06-06 14:37] LABS: Basophils % 0.6 %; Eosinophils # 0.5 10^3/uL (0.0-0.8); Eosinophils % 7.6 %; Hematocrit 31.5 % (42.0-52.0); Hemoglobin 10.7 g/dL (11.7-16.6); Lymphocytes # 0.7 10^3/uL (0.8-4.8); Lymphocytes % 10.1 %; Mean Corpuscular Hemoglobin 31.2 pg (28.0-34.0); Mean Corpuscular Volume 91.8 fl (80-94); Mean Platelet Volume 9.4 fL (7.4-10.4); Monocytes # 0.8 10^3/uL (0.2-0.9); Monocytes % 11.3 %; Neutrophils # 4.94 10^3/uL (1.8-7.7); Nucleated Red Blood Cells % 0 %; Platelet Count 269 10^3/cmm (130-400); Red Blood Count 3.43 10^6/uL (4.1-5.3); Red Cell Distribution Width 14.5 % (12.1-15.1); White Blood Count 7.1 10^3/uL (4.0-10.0)
[2021-06-06 15:17] LABS: Alanine Aminotransferase 39 U/L (0-41); Albumin Level 3.7 g/dL (3.5-5.2); Alkaline Phosphatase 66 IU/L (40-130); Anion Gap 18.1 (5-19); Aspartate Amino Transferase 36 U/L (0-40); Blood Urea Nitrogen 21 mg/dL (8-23); Calcium 8.5 mg/dL (8.5-10.5); Carbon Dioxide 22 mmol/L (22-29); Chloride 102 mmol/L (98-107); Globulin 1.7 g/dL (1.3-4.6); Glucose 133 mg/dL (65-115); Osmolality Calculated 291 mOsm/kg (285-295); Potassium 4.1 mmol/L (3.5-5.1); Prostate Specific Antigen 0.014 ng/mL (0-4); Sodium 138 mmol/L (136-145); Testosterone Total 2.5 ng/dL (193-740); Total Bilirubin 0.3 mg/dL (0.15-1.2); Total Protein 5.4 g/dL (6.6-8.7)
--- NOTE | 2021-06-08 09:36 | ONC FU_ITS ---
Dr. Aden follow up note Patient: Barrera Menendez Unit #: [id number]: 1950 Dicatated By: Aad Aden M.D.Date of Visit:Jun 08, 2021 Onc Med Follow-up/Prog Note History of Present Illness: This is a 70-year-old man with high-grade prostatic adenocarcinoma, [place] score 9. By clinical evaluation his disease was stage IIIC (T1c, N0, M0). His cancer was initially diagnosed by ultrasound-guided biopsy on 06/04/2020. Baseline PSA was 4.61 ng/mL. He was very high risk based on his [place] score 4+5= 9. He began androgen deprivation therapy with Zoladex in combination with bicalutamide on 09/14/2020. He then began radiation to the prostate on 10/16/2020. He completed radiation on 12/08/2020 to a total dose of 7800 cGy, administered in 39 fractions. He then proceeded to adjuvant chemotherapy with 6 cycles of docetaxel, cycle 1 beginning on 01/04/2021.And completed 6 cycles on May 07, 2021 Came for follow-up, denies any specific complaint except generalized weakness and fatigue and weight gain, otherwise no nausea or vomiting, no diarrhea constipation, no fever chills, no dysuria or hematuria, no new bony pains, no numbness in hands or feet. Occasionally hot flashes otherwise tolerating 3 monthly Zoladex well Medications: amLODIPine Besylate 1 Tablet (of 10 mg) Tablet Oral daily, Aspirin 1 Tablet (of 325 mg) Oral daily, Atenolol 1 Tablet (of 100 mg) Oral daily, hydroCHLOROthiazide 1 Tablet (of 25 mg) Tablet Oral daily, Loratadine 1 Tablet (of 10 mg) Oral daily, Losartan Potassium 1 Tablet (of 100 mg) Oral daily Allergies: Colestipol HCl, Gemfibrozil, Lisinopril, Lovastatin, Pravastatin Sodium, and Simvastatin. Review of Systems: Review of Systems is not available for this patient. Vital Signs: Vitals are not available for this patient. Performance Status: 0 - Fully active, able to carry on all predisease activities without restrictions. (ECOG) Physical Examination: ENMT - No mouth sores, no thrush, no jaundice, Respiratory - Lungs are clear to auscultation, Cardiovascular - Regular rate and rhythm of heart, Abdomen - Soft, bowel sounds present, Extremities - No visible edema. Lab/Imaging: Test performed on Jun 06, 2021 14:30 Sodium 138 mmol/L Testosterone, Total 2.5 ng/dL Potassium 4.1 mmol/L Chloride 102 mmol/L CO2 22 mmol/L Anion Gap 18.1 BUN 21 mg/dL Creatinine 1.3 mg/dL Cr Clearance (Est) 76.8500 mL/min Glucose 133 mg/dL Osmolality - Calculated 291 mOsm/kg Calcium 8.5 mg/dL Protein, Total 5.4 g/dL Albumin 3.7 g/dL Globulin 1.7 g/dL Bilirubin, Total 0.3 mg/dL ALT (SGPT) 39 U/L AST (SGOT) 36 U/L Alkaline Phosphatase 66 IU/L WBC 7.1 10 3/uL RBC 3.43 10 6/uL HGB 10.7 g/dL HCT 31.5 % MCV 91.8 fl MCH 31.2 pg MCHC 34.0 g/dL RDW 14.5 % Platelet Count 269 10 3/cmm MPV 9.4 fL Neutrophils 4.94 10 3/uL Lymphocytes 0.7 10 3/uL Monocytes 0.8 10 3/uL Eosinophils 0.5 10 3/uL Basophils 0.0 10 3/uL Neutrophil % 70.0 % Lymphocyte % 10.1 % Monocyte % 11.3 % Eosinophil % 7.6 % Basophils % 0.6 % NRBC % 0 % PSA 0.014 ng/mL Test performed on May 07, 2021 10:07 Est Avg Glucose (eAG) 189 mg/dL Hemoglobin A1C % 8.2 % Impression: 1. High-grade prostatic adenocarcinoma, [place] score 9, by clinical evaluation stage IIIC (T1c, N0, M0). diagnosed by ultrasound-guided biopsy on 06/04/2020. Baseline PSA was 4.61 ng/mL. He was very high risk based on his [place] score 4+5= 9. He began androgen deprivation therapy with Zoladex in combination with bicalutamide on 09/14/2020. He then began radiation to the prostate on 10/16/2020. He completed radiation on 12/08/2020 to a total dose of 7800 cGy, administered in 39 fractions. docetaxel, cycle 1 beginning on 01/04/2021 And completed 6 cycles on May 07, 2021 2. Hypertension. 3. Prior history of heavy alcohol use. Mild anemia Plan: .Discussed with patient regarding his labs white blood count 7.1 hemoglobin 10.7 hematocrit 31.5 platelets 269,000 CMP within normal limits except creatinine 1.3 and PSA 0.014 compared to 0.006 previously Clinically, patient doing well with no new signs symptom suggestive of recurrence of disease, patient has completed 6 cycles of adjuvant docetaxel for high-grade prostate cancer, now being treated with 3 monthly Zoladex, he will return to clinic in 1 month with CBC, CMP and PSA and for next 3 monthly dose of Zoladex. Mild anemia, etiology unclear could be due to chemotherapy, will monitor if there is a further drop in his hemoglobin, will consider work-up Mild renal insufficiency, patient was advised to maintain good hydration and monitor serum creatinine if there is a worsening, consider evaluation. Signed By: Ada Aden M.D. <<Signature on File>>
== END 2021-07-06 23:59 | disposition home or self-care (01) ==
LOC: ONCMED 06:40
PROVIDERS: Internal Medicine Medical Oncology; PCP Family Medicine; Visit Provider Internal Medicine Hematology & Oncology
DX: C61 Malignant neoplasm of prostate (principal); I10 Essential (primary) hypertension; D64.9 Anemia, unspecified; N28.9 Disorder of kidney and ureter, unspecified; Z79.818 Long term (current) use of other agents affecting estrogen receptors and estrogen levels; Z92.21 Personal history of antineoplastic chemotherapy; Z92.3 Personal history of irradiation
CPT/HCPCS: 36591; 80053; 84153; 84403; 85025; 99214

== ENCOUNTER 2021-06-08 15:18 | Outpatient (CLI) | payer OTHER, SELFPAY ==
--- NOTE | 2021-06-08 | USCV_ITS ---
Barrera Menendez Age: 71 Gender: M : 1950 Exam Date: 06/08/2021 15:55 Ordering Phys: Donald Downs Technologist: MIGUEL Exam Location: [facility] – [place] Indication: S/P chemo for prostate CA. No history of cardiac intervention. He states that he had a cardiac angiogram 2011 at [facility] in [place], which was normal. BP: / HR: 76 Rhythm: Sinus Technical Quality: Adequate MEASUREMENTS (Male / Female) Normal Values 2D ECHO LV Diastolic Diameter PLAX 5.1 cm 4.2 - 5.9 / 3.9 - 5.3 cm LV Systolic Diameter PLAX 3.1 cm IVS Diastolic Thickness 1.2 cm 0.6 - 1.0 / 0.6 - 0.9 cm IVS Systolic Thickness 2.3 cm LVPW Diastolic Thickness 1.1 cm 0.6 - 1.0 / 0.6 - 0.9 cm LVPW Systolic Thickness 2.1 cm LVOT Diameter 1.9 cm LV Ejection Fraction 2D Teich 68.9 % LV Ejection Fraction MOD 2C 68.3 % LV Ejection Fraction 2C AL 67.2 % LA Diameter 4.1 cm LA Width 3.3 cm LA Height 5.6 cm RA Width 3.7 cm RA Height 4.8 cm Aorta at Sinotubular Diameter 2.9 cm M-MODE Aortic Annulus Diameter 3.5 cm LA Ao Ratio MM 1.2 MV E Point Septal Separation 0.6 cm DOPPLER AV Peak Velocity 127.0 cm/s LVOT Peak Velocity 99.0 cm/s AV Area Cont Eq vti 2.1 cm squared AV Area Cont Eq pk 2.1 cm squared MV Peak Velocity 110.0 cm/s MV Area PHT 3.7 cm squared Mitral E to A Ratio 0.8 MV E' Velocity 47.0 cm/s Mitral E to MV E' Ratio 11.7 Mitral E to LV E' Lateral Ratio 12.0 Mitral E to LV E' Septal Ratio 11.5 TR Peak Velocity 119.0 cm/s TR Peak Gradient 5.7 mmHg Right Atrial Pressure 3.0 mmHg Pulmonary Artery Systolic Pressu 8.7 mmHg PV Peak Velocity 95.3 cm/s FINDINGS Left Ventricle Normal left ventricular size. LV systolic function is normal with EF of 55-60%. No regional wall motion abnormalities. Grade 1 diastolic dysfunction. Right Ventricle The right ventricle is normal in size and function. Right Atrium The right atrium is normal in size. Left Atrium The left atrium is normal in size. Mitral Valve Structurally normal mitral valve without significant stenosis or prolapse. There is no mitral regurgitation. Aortic Valve Structurally normal aortic valve without significant sclerosis or stenosis. There is no aortic regurgitation. Tricuspid Valve Structurally normal tricuspid valve without significant stenosis. Mild tricuspid regurgitation. Pulmonary artery systolic pressure is normal. Pulmonic Valve Structurally normal pulmonic valve without significant stenosis. There is no pulmonic regurgitation. Pericardium Normal pericardium without effusion. Aorta Mildly dilated ascending aorta CONCLUSIONS LV systolic function is normal with EF 55 to 60%. Grade 1 diastolic dysfunction. Mild tricuspid regurgitation Mildly dilated ascending aorta No comparison studies are available. Aniket Cunningham MD (Electronically Signed) Final Date: 17 June 2021 19:03 S
== END 2021-06-08 15:19 | disposition home or self-care (01) ==
PROVIDERS: PCP Family Medicine; Visit Provider Chiropractor
DX: I25.9 Chronic ischemic heart disease, unspecified (principal); I07.1 Rheumatic tricuspid insufficiency
CPT/HCPCS: 93306

== ENCOUNTER 2021-07-31 06:30 | Outpatient (RCR) | payer OTHER, SELFPAY ==
[2021-07-17 12:44] LABS: Basophils # 0.1 10^3/uL (0.0-0.1); Basophils % 0.7 %; Eosinophils # 0.6 10^3/uL (0.0-0.8); Eosinophils % 7.5 %; Hematocrit 37.3 % (42.0-52.0); Hemoglobin 12.1 g/dL (11.7-16.6); Lymphocytes # 0.8 10^3/uL (0.8-4.8); Lymphocytes % 10.6 %; Mean Corpuscular HGB Conc 32.4 g/dL (30.0-36.0); Mean Corpuscular Hemoglobin 29.3 pg (28.0-34.0); Mean Corpuscular Volume 90.3 fl (80-94); Mean Platelet Volume 10.2 fL (7.4-10.4); Monocytes # 0.6 10^3/uL (0.2-0.9); Neutrophils # 5.38 10^3/uL (1.8-7.7); Neutrophils % 72.8 %; Nucleated Red Blood Cells % 0 %; Platelet Count 300 10^3/cmm (130-400); Red Blood Count 4.13 10^6/uL (4.1-5.3); Red Cell Distribution Width 14.1 % (12.1-15.1); White Blood Count 7.4 10^3/uL (4.0-10.0)
[2021-07-17 13:11] LABS: Alanine Aminotransferase 127 U/L (0-41); Albumin Level 4.2 g/dL (3.5-5.2); Alkaline Phosphatase 90 IU/L (40-130); Anion Gap 19.3 (5-19); Aspartate Amino Transferase 94 U/L (0-40); Blood Urea Nitrogen 16 mg/dL (8-23); Calcium 10.1 mg/dL (8.5-10.5); Carbon Dioxide 22 mmol/L (22-29); Chloride 102 mmol/L (98-107); Globulin 2.8 g/dL (1.3-4.6); Glucose 130 mg/dL (65-115); Osmolality Calculated 291 mOsm/kg (285-295); Potassium 4.3 mmol/L (3.5-5.1); Sodium 139 mmol/L (136-145); Total Bilirubin 0.4 mg/dL (0.15-1.2)
[2021-07-17 13:13] LABS: Prostate Specific Antigen < 0.014 ng/mL (0-4)
--- NOTE | 2021-07-17 14:04 | ONC FU_ITS ---
Dr. Aden follow up note Patient: Barrera Menendez Unit #: [id number]: 1950 Dicatated By: Ada Aden M.D.Date of Visit:Jul 17, 2021 Onc Med Follow-up/Prog Note History of Present Illness: This is a 71-year-old man with high-grade prostatic adenocarcinoma, [place] score 9. By clinical evaluation his disease was stage IIIC (T1c, N0, M0). His cancer was initially diagnosed by ultrasound-guided biopsy on 06/04/2020. Baseline PSA was 4.61 ng/mL. He was very high risk based on his [place] score 4+5= 9. He began androgen deprivation therapy with Zoladex in combination with bicalutamide on 09/14/2020. He then began radiation to the prostate on 10/16/2020. He completed radiation on 12/08/2020 to a total dose of 7800 cGy, administered in 39 fractions. He then proceeded to adjuvant chemotherapy with 6 cycles of docetaxel, cycle 1 beginning on 01/04/2021.And completed 6 cycles on May 07, 2021 tolerating 3 monthly Zoladex well Came for follow-up, denies any specific complaints, no fever chills, no nausea or vomiting, no diarrhea or constipation, no melena or hematochezia, no hemoptysis or hematemesis, no new bony pains, no jaundice, no right upper quadrant pain, no dysuria or hematuria, occasionally hot flashes otherwise tolerating Zoladex well Medications: amLODIPine Besylate 1 Tablet (of 10 mg) Tablet Oral daily, Aspirin 1 Tablet (of 325 mg) Oral daily, Atenolol 1 Tablet (of 100 mg) Oral daily, hydroCHLOROthiazide 1 Tablet (of 25 mg) Tablet Oral daily, Loratadine 1 Tablet (of 10 mg) Oral daily, Losartan Potassium 1 Tablet (of 100 mg) Oral daily Allergies: Colestipol HCl, Gemfibrozil, Lisinopril, Lovastatin, Pravastatin Sodium, and Simvastatin. Review of Systems: Review of Systems is not available for this patient. Vital Signs: Performed on Jul 17, 2021 13:39 Height - 70.00 in Weight - 230 lbs (LOW) BSA - 2.22 sq.m BMI - 33.00 (HIGH) Temperature - 97.8 F (LOW) Pulse - 97 /min Respiration - 18 /min BP - 157/76 mm(hg) (HIGH) O2 Sat - 96 % Pain - 0 Fatigue - 0 Performance Status: 0 - Fully active, able to carry on all predisease activities without restrictions. (ECOG) Physical Examination: ENMT - No mouth sores, no thrush, no jaundice, Respiratory - Lungs are clear to auscultation, Cardiovascular - Regular rate and rhythm of heart, Abdomen - Soft, bowel sounds present, Extremities - No visible edema. Lab/Imaging: Test performed on Jun 06, 2021 14:30 Sodium 138 mmol/L Testosterone, Total 2.5 ng/dL Potassium 4.1 mmol/L Chloride 102 mmol/L CO2 22 mmol/L Anion Gap 18.1 BUN 21 mg/dL Creatinine 1.3 mg/dL Cr Clearance (Est) 76.8500 mL/min Glucose 133 mg/dL Osmolality - Calculated 291 mOsm/kg Calcium 8.5 mg/dL Protein, Total 5.4 g/dL Albumin 3.7 g/dL Globulin 1.7 g/dL Bilirubin, Total 0.3 mg/dL ALT (SGPT) 39 U/L AST (SGOT) 36 U/L Alkaline Phosphatase 66 IU/L WBC 7.1 10 3/uL RBC 3.43 10 6/uL HGB 10.7 g/dL HCT 31.5 % MCV 91.8 fl MCH 31.2 pg MCHC 34.0 g/dL RDW 14.5 % Platelet Count 269 10 3/cmm MPV 9.4 fL Neutrophils 4.94 10 3/uL Lymphocytes 0.7 10 3/uL Monocytes 0.8 10 3/uL Eosinophils 0.5 10 3/uL Basophils 0.0 10 3/uL Neutrophil % 70.0 % Lymphocyte % 10.1 % Monocyte % 11.3 % Eosinophil % 7.6 % Basophils % 0.6 % NRBC % 0 % PSA 0.014 ng/mL Test performed on May 07, 2021 10:07 Est Avg Glucose (eAG) 189 mg/dL Hemoglobin A1C % 8.2 % Impression: 1. High-grade prostatic adenocarcinoma, [place] score 9, by clinical evaluation stage IIIC (T1c, N0, M0). diagnosed by ultrasound-guided biopsy on 06/04/2020. Baseline PSA was 4.61 ng/mL. He was very high risk based on his [place] score 4+5= 9. He began androgen deprivation therapy with Zoladex in combination with bicalutamide on 09/14/2020. He then began radiation to the prostate on 10/16/2020. He completed radiation on 12/08/2020 to a total dose of 7800 cGy, administered in 39 fractions. docetaxel, cycle 1 beginning on 01/04/2021 And completed 6 cycles on May 07, 2021 2. Hypertension. 3. Prior history of heavy alcohol use. Mild anemia Plan: Discussed with patient regarding his labs white blood count 7.4 hemoglobin 12.1 g compared to 10.7 g previously hematocrit 37.3 platelets 300,000 CMP within normal limits except glucose 130 and creatinine 1.3 which is stable and also shows ALT 127 compared to 39 previously and AST 94 compared to 36 previously PSA less than 0.014 Clinically, patient is doing well with no new signs suggestive of disease progression his PSA still subzero and stable, will proceed with his 3 monthly dose of Zoladex today and then return to clinic in 3 months with CMP, PSA As far as fluctuating transaminases concerned, etiology is unclear, we will repeat his CMP in 2 weeks if it shows no resolution, will consider right upper quadrant sonogram and hepatitis panel. Patient denies alcohol use patient denies any excessive Tylenol intake patient denies any [id number] medication or herbs. Signed By: Ada Aden M.D. <<Signature on File>>
[2021-07-17] MEDS: lidocaine 1% INJ 20 mL INJECTION (14:20)
[2021-07-17] MEDS: goserelin acetate 10.8 mg Implant SUBCUT (14:30)
[2021-07-31 14:10] LABS: Alanine Aminotransferase 117 U/L (0-41); Albumin Level 4.1 g/dL (3.5-5.2); Alkaline Phosphatase 84 IU/L (40-130); Aspartate Amino Transferase 75 U/L (0-40); Blood Urea Nitrogen 17 mg/dL (8-23); Calcium 8.9 mg/dL (8.5-10.5); Carbon Dioxide 25 mmol/L (22-29); Chloride 98 mmol/L (98-107); Globulin 2.3 g/dL (1.3-4.6); Glucose 134 mg/dL (65-115); Osmolality Calculated 288 mOsm/kg (285-295); Sodium 137 mmol/L (136-145); Total Bilirubin 0.3 mg/dL (0.15-1.2); Total Protein 6.4 g/dL (6.6-8.7)
[2021-07-31 14:11] LABS: Prostate Specific Antigen < 0.014 ng/mL (0-4)
[2021-07-31 14:12] LABS: Anion Gap 17.8 (5-19); Potassium 3.8 mmol/L (3.5-5.1)
== END 2021-08-06 23:59 | disposition home or self-care (01) ==
LOC: ONCMED 06:30
PROVIDERS: Internal Medicine Hematology & Oncology; PCP Family Medicine; Visit Provider Internal Medicine Medical Oncology
DX: C61 Malignant neoplasm of prostate (principal); I10 Essential (primary) hypertension; F10.21 Alcohol dependence, in remission; D64.9 Anemia, unspecified; Z79.818 Long term (current) use of other agents affecting estrogen receptors and estrogen levels; Z92.21 Personal history of antineoplastic chemotherapy; Z92.3 Personal history of irradiation
CPT/HCPCS: 36591; 80053; 84153; 85025; 96402; 99215; J9202

== ENCOUNTER 2021-08-17 08:55 | Outpatient (RCR) | payer OTHER, SELFPAY | END 2021-09-03 23:59 | disposition home or self-care (01) | LOC: ONCMED 08:55 | PROVIDERS: PCP Family Medicine; Visit Provider Internal Medicine Medical Oncology | DX: Z45.2 Encounter for adjustment and management of vascular access device (principal) | CPT/HCPCS: 96523 ==

== ENCOUNTER 2021-09-19 13:20 | Outpatient (RCR) | payer OTHER, SELFPAY | END 2021-10-04 23:59 | disposition home or self-care (01) | LOC: ONCMED 13:20 | PROVIDERS: PCP Family Medicine; Visit Provider Internal Medicine Medical Oncology | DX: Z45.2 Encounter for adjustment and management of vascular access device (principal) | CPT/HCPCS: 96523 ==

== ENCOUNTER 2021-10-09 10:46 | Outpatient (RCR) | payer OTHER, SELFPAY ==
[2021-10-09 11:23] LABS: Basophils % 0.4 %; Eosinophils # 0.4 10^3/uL (0.0-0.8); Eosinophils % 7.4 %; Hemoglobin 12.9 g/dL (11.7-16.6); Lymphocytes # 0.9 10^3/uL (0.8-4.8); Lymphocytes % 15.5 %; Mean Corpuscular HGB Conc 33.9 g/dL (30.0-36.0); Mean Corpuscular Hemoglobin 31.2 pg (28.0-34.0); Mean Platelet Volume 10.4 fL (7.4-10.4); Monocytes # 0.4 10^3/uL (0.2-0.9); Monocytes % 7.4 %; Neutrophils # 3.89 10^3/uL (1.8-7.7); Neutrophils % 68.6 %; Nucleated Red Blood Cells % 0 %; Platelet Count 189 10^3/cmm (130-400); Red Blood Count 4.13 10^6/uL (4.1-5.3); Red Cell Distribution Width 14.3 % (12.1-15.1); White Blood Count 5.7 10^3/uL (4.0-10.0)
[2021-10-09 11:50] LABS: Alanine Aminotransferase 170 U/L (0-41); Albumin Level 4.1 g/dL (3.5-5.2); Alkaline Phosphatase 84 IU/L (40-130); Anion Gap 16.8 (5-19); Aspartate Amino Transferase 82 U/L (0-40); Blood Urea Nitrogen 18 mg/dL (8-23); Calcium 9.6 mg/dL (8.5-10.5); Carbon Dioxide 24 mmol/L (22-29); Chloride 100 mmol/L (98-107); Glucose 144 mg/dL (65-115); Osmolality Calculated 288 mOsm/kg (285-295); Potassium 3.8 mmol/L (3.5-5.1); Prostate Specific Antigen < 0.014 ng/mL (0-4); Sodium 137 mmol/L (136-145); Total Bilirubin 0.5 mg/dL (0.15-1.2); Total Protein 7.1 g/dL (6.6-8.7)
[2021-10-09] MEDS: lidocaine 1% INJ 20 mL INJECTION (13:28)
[2021-10-09] MEDS: goserelin acetate 10.8 mg Implant SUBCUT (13:43)
[2021-10-09 14:31] LABS: Hepatitis B Core AB, Total Non-Reactive (Nonreactive); Hepatitis B Surface AB 4.3 (11.5-1000); Hepatitis B Surface Antigen Non-Reactive (Nonreactive); Hepatitis C Virus Antibody Non-Reactive (Nonreactive)
--- NOTE | 2021-10-14 21:33 | ONC FU_ITS ---
Patsy Garza Progress Note Patient: Barrera Menendez Unit #: [id number]: 1950 Dicatated By: Patsy Garza N.P.Date of Visit:Oct 09, 2021 Onc MED Follow-up/Prog Note Chief Complaint: Prostate cancer. History of Present Illness: This is a 71-year-old man with high-grade prostatic adenocarcinoma, Fatmata score 9. By clinical evaluation his disease was stage IIIC (T1c, N0, M0). His cancer was initially diagnosed by ultrasound-guided biopsy on 06/04/2020. Baseline PSA was 4.61 ng/mL. He was very high risk based on his [place] score 4+5= 9. He began androgen deprivation therapy with Zoladex in combination with bicalutamide on 09/14/2020. He then began radiation to the prostate on 10/16/2020. He completed radiation on 12/08/2020 to a total dose of 7800 cGy, administered in 39 fractions. He then proceeded to adjuvant chemotherapy with 6 cycles of docetaxel, cycle 1 beginning on 01/04/2021.And completed 6 cycles on May 07, 2021 Patient presents today for follow-up. He denies any problems. He states he has been feeling well. Appetite has been good. No fevers, chills, night sweats. He has occasional hot flashes. No sinus drainage or sore throat. No shortness of breath, cough, chest pain. No GI problems no problems no joint or bone pain. No headaches or dizziness. He appears to be tolerating his Zoladex well. Review Of Symptoms:. See above. Past Medical History: Hypertension Past Surgical History: Colonoscopy Right leg surgery Covid vaccine #2 moderna in 2020 Covid vaccine #1 moderna in 2020 Allergies: Colestipol HCl, Gemfibrozil, Lisinopril, Lovastatin, Pravastatin Sodium, and Simvastatin. Medications: amLODIPine Besylate 1 Tablet (of 10 mg) Tablet Oral daily Aspirin 1 Tablet (of 325 mg) Oral daily Atenolol 1 Tablet (of 100 mg) Oral daily hydroCHLOROthiazide 1 Tablet (of 25 mg) Tablet Oral daily Loratadine 1 Tablet (of 10 mg) Oral daily Losartan Potassium 1 Tablet (of 100 mg) Oral daily Family History: There is no documented family history. Social History: Mr. Menendez is . Mr. Menendez has never smoked. He quit drinking 11 years ago. Physical Examination: Performed on Oct 09, 2021 12:59: Height - 70.00 in, Weight - 235.2 lbs (HIGH), BSA - 2.24 sq.m, BMI - 33.75 (HIGH), Temperature - 97.9 F (LOW), Pulse - 63 /min, Respiration - 20 /min, BP - 143/77 mm(hg) (HIGH), O2 Sat - 97 %, Pain - 0, and Fatigue - 0. Performance Status: 0 - Fully active, able to carry on all predisease activities without restrictions. (ECOG) Constitutional Alert, cooperative, oriented. Mood and affect appropriate. Appears close to chronological age. Well nourished. Well developed. Head Normocephalic; no scars. Respiratory Lungs are clear to auscultation without rhonchi or wheezing. Cardiovascular Regular rate and rhythm of heart without murmurs, gallops or rubs. Abdomen Non-tender, non-distended, no masses, ascites or hepatosplenomegaly. Good bowel sounds. No guarding or rebound tenderness. Musculoskeletal No tenderness or swelling, normal range of motion without obvious weakness. Psychiatric Alert and oriented times three. Coherent speech. Verbalizes understanding of our discussions today. Laboratory: Test performed on Oct 09, 2021 13:25 Hepatitis B Core Ab, Total Non-Reactive Hepatitis B Surf Antigen Non-Reactive Hepatitis B Surface Ab 4.3 STATUS of IMMUINITY Inconsistent with Immunity 0.0 - 8.4 mIU/mL Consistent with Indeterminate Immunity 8.5 - 11.4 mIU/mL Consistent with Immunity >= 11.5 mIU/mL Hepatitis C Ab Non-Reactive Test performed on Oct 09, 2021 11:05 Sodium 137 mmol/L Potassium 3.8 mmol/L Chloride 100 mmol/L CO2 24 mmol/L Anion Gap 16.8 BUN 18 mg/dL Creatinine 1.0 mg/dL Cr Clearance (Est) 100.7600 mL/min Glucose 144 mg/dL Osmolality - Calculated 288 mOsm/kg Calcium 9.6 mg/dL Protein, Total 7.1 g/dL Albumin 4.1 g/dL Globulin 3.0 g/dL Bilirubin, Total 0.5 mg/dL ALT (SGPT) 170 U/L AST (SGOT) 82 U/L Alkaline Phosphatase 84 IU/L WBC 5.7 10 3/uL RBC 4.13 10 6/uL HGB 12.9 g/dL HCT 38.0 % MCV 92.0 fl MCH 31.2 pg MCHC 33.9 g/dL RDW 14.3 % Platelet Count 189 10 3/cmm MPV 10.4 fL Neutrophils 3.89 10 3/uL Lymphocytes 0.9 10 3/uL Monocytes 0.4 10 3/uL Eosinophils 0.4 10 3/uL Basophils 0.0 10 3/uL Neutrophil % 68.6 % Lymphocyte % 15.5 % Monocyte % 7.4 % Eosinophil % 7.4 % Basophils % 0.4 % NRBC % 0 % PSA < 0.014 ng/mL Test performed on Jun 06, 2021 14:30 Testosterone, Total 2.5 ng/dL Test performed on May 07, 2021 10:07 Est Avg Glucose (eAG) 189 mg/dL Hemoglobin A1C % 8.2 % Impression: 1. High-grade prostatic adenocarcinoma, Fatmata score 9, by clinical evaluation stage IIIC (T1c, N0, M0). diagnosed by ultrasound-guided biopsy on 06/04/2020. Baseline PSA was 4.61 ng/mL. He was very high risk based on his Fatmata score 4+5= 9. He began androgen deprivation therapy with Zoladex in combination with bicalutamide on 09/14/2020. He then began radiation to the prostate on 10/16/2020. He completed radiation on 12/08/2020 to a total dose of 7800 cGy, administered in 39 fractions. docetaxel, cycle 1 beginning on 01/04/2021 And completed 6 cycles on May 07, 2021 2. Hypertension. 3. Prior history of heavy alcohol use. Mild anemia Plan: Labs were reviewed with patient. WBC 5.7, hemoglobin 12.9, hematocrit 38.0, platelet count 189,000. CMP has a glucose mildly elevated at 144, his liver enzymes have been elevated and continue to increase. His ALT is 170 and his AST is at 82. His bilirubin is within normal range at 0.5. His PSA is less than 0.014. Clinically patient is doing well with that any signs of disease progression. His PSA remains less than 0.014 and he is tolerating Zoladex every 3 months well. He will receive his Zoladex today and it will be repeated every 3 months as long as patient tolerates. As far as elevated AST and ALT we will check a hepatitis panel today and order an ultrasound to further evaluate the liver. Patient to return to clinic in 1 month with CBC CMP. Signed By: Patsy Garza N.P. <<Signature on File>>
== END 2021-11-03 23:59 | disposition home or self-care (01) ==
LOC: ONCMED 10:46
PROVIDERS: Internal Medicine Hematology & Oncology; PCP Family Medicine; Visit Provider Nurse Practitioner Family
DX: C61 Malignant neoplasm of prostate (principal); I10 Essential (primary) hypertension; F10.21 Alcohol dependence, in remission; D64.9 Anemia, unspecified; R74.01 Elevation of levels of liver transaminase levels; Z79.899 Other long term (current) drug therapy; Z79.818 Long term (current) use of other agents affecting estrogen receptors and estrogen levels; Z92.21 Personal history of antineoplastic chemotherapy; Z92.3 Personal history of irradiation
CPT/HCPCS: 80053; 84153; 85025; 86705; 86706; 86709; 86803; 87340; 96372; 96402; 99215; J9202

== ENCOUNTER 2021-10-30 06:15 | Outpatient (CLI) | payer OTHER, SELFPAY ==
--- NOTE | 2021-10-30 06:33 | US_ITS ---
WS: [id number] RIGHT UPPER QUADRANT ULTRASOUND HISTORY: ELEVATED LIVER ENZYMES COMPARISON: 03/07/2021 Liver: 18.4 cm in length. Liver is enlarged and heterogeneous with coarse echotexture throughout. The entire liver is poorly visualized due to position and marked attenuation. No mass or bile duct dilat ation. Portal Vein: Normal hepatopetal flow with monophasic waveform. Gallbladder: Normally distended gallbladder with no stones or wall thickening. CBD: 0.6 cm Pancreas: Normal size and echogenicity. Right kidney: 9.2 cm in length. Normal size and echogenicity. No hydronephrosis or mass. Aorta and IVC: Unremarkable abdominal aorta and IVC. No ascites. US/US liver [id number] IMPRESSION: 1. Moderate hepatomegaly and hepatic steatosis. 2. Technically limited evaluation of the liver due to body habitus. 3. Negative gallbladder.
== END 2021-10-30 06:16 | disposition home or self-care (01) ==
LOC: RAD 06:16
PROVIDERS: PCP Family Medicine; Visit Provider Nurse Practitioner Family
DX: R74.8 Abnormal levels of other serum enzymes (principal); K76.0 Fatty (change of) liver, not elsewhere classified
CPT/HCPCS: 76705

== ENCOUNTER 2021-11-08 12:02 | Oncology outpatient (recurring) (ONCR) | payer OTHER, SELFPAY ==
[2021-11-08 12:55] LABS: Basophils % 0.3 %; Eosinophils # 0.3 10^3/uL (0.0-0.8); Eosinophils % 5.4 %; Hematocrit 36.1 % (42.0-52.0); Hemoglobin 12.3 g/dL (11.7-16.6); Lymphocytes # 0.9 10^3/uL (0.8-4.8); Lymphocytes % 14.1 %; Mean Corpuscular HGB Conc 34.1 g/dL (30.0-36.0); Mean Corpuscular Hemoglobin 32.4 pg (28.0-34.0); Mean Platelet Volume 10.4 fL (7.4-10.4); Monocytes # 0.7 10^3/uL (0.2-0.9); Monocytes % 11.2 %; Neutrophils # 4.16 10^3/uL (1.8-7.7); Neutrophils % 68.3 %; Nucleated Red Blood Cells % 0 %; Platelet Count 185 10^3/cmm (130-400); Red Cell Distribution Width 13.9 % (12.1-15.1); White Blood Count 6.1 10^3/uL (4.0-10.0)
[2021-11-08 13:05] LABS: Alanine Aminotransferase 174 U/L (0-41); Albumin Level 4.5 g/dL (3.5-5.2); Alkaline Phosphatase 81 IU/L (40-130); Anion Gap 13.7 (5-19); Aspartate Amino Transferase 88 U/L (0-40); Blood Urea Nitrogen 20 mg/dL (8-23); Calcium 9.8 mg/dL (8.5-10.5); Carbon Dioxide 27 mmol/L (22-29); Chloride 103 mmol/L (98-107); Globulin 1.8 g/dL (1.3-4.6); Glucose 77 mg/dL (65-115); Osmolality Calculated 291 mOsm/kg (285-295); Potassium 3.7 mmol/L (3.5-5.1); Sodium 140 mmol/L (136-145); Total Bilirubin 0.4 mg/dL (0.15-1.2); Total Protein 6.3 g/dL (6.6-8.7)
== END 2021-12-04 23:59 | disposition home or self-care (01) ==
PROVIDERS: PCP Family Medicine; Referring Provider Family Medicine; Visit Provider Nurse Practitioner Family
DX: C61 Malignant neoplasm of prostate (principal); I10 Essential (primary) hypertension; F10.21 Alcohol dependence, in remission
CPT/HCPCS: 36591; 80053; 85025; 99214; 99999

== ENCOUNTER 2022-01-01 12:00 | Oncology outpatient (recurring) (ONCR) | payer OTHER, SELFPAY ==
[2021-12-21 09:45] VITALS: BMI 33.5
[2022-01-01 12:30] VITALS: BMI 33.1
[2022-01-01 12:36] LABS: Basophils % 0.2 %; Eosinophils # 0.3 10^3/uL (0.0-0.8); Eosinophils % 4.8 %; Hematocrit 33.6 % (42.0-52.0); Hemoglobin 11.9 g/dL (11.7-16.6); Lymphocytes # 0.8 10^3/uL (0.8-4.8); Lymphocytes % 12.3 %; Mean Corpuscular HGB Conc 35.4 g/dL (30.0-36.0); Mean Corpuscular Hemoglobin 33.5 pg (28.0-34.0); Mean Corpuscular Volume 94.6 fl (80-94); Mean Platelet Volume 10.8 fL (7.4-10.4); Monocytes # 0.6 10^3/uL (0.2-0.9); Monocytes % 9.7 %; Neutrophils # 4.72 10^3/uL (1.8-7.7); Neutrophils % 72.4 %; Nucleated Red Blood Cells % 0 %; Platelet Count 191 10^3/cmm (130-400); Red Blood Count 3.55 10^6/uL (4.1-5.3); Red Cell Distribution Width 12.7 % (12.1-15.1); White Blood Count 6.5 10^3/uL (4.0-10.0)
[2022-01-01 13:10] LABS: Alanine Aminotransferase 198 U/L (0-41); Albumin Level 4.4 g/dL (3.5-5.2); Alkaline Phosphatase 78 IU/L (40-130); Anion Gap 14.9 (5-19); Aspartate Amino Transferase 144 U/L (0-40); Blood Urea Nitrogen 28 mg/dL (8-23); Calcium 9.3 mg/dL (8.5-10.5); Carbon Dioxide 28 mmol/L (22-29); Chloride 100 mmol/L (98-107); Globulin 2.5 g/dL (1.3-4.6); Glucose 155 mg/dL (65-115); Osmolality Calculated 297 mOsm/kg (285-295); Potassium 3.9 mmol/L (3.5-5.1); Sodium 139 mmol/L (136-145); Total Bilirubin 0.5 mg/dL (0.15-1.2); Total Protein 6.9 g/dL (6.6-8.7)
[2022-01-01 13:12] LABS: Prostate Specific Antigen < 0.014 ng/mL (0-4)
[2022-01-01] MEDS: lidocaine 1% INJ 20 mL SUBCUT (15:14)
[2022-01-01] MEDS: goserelin acetate 10.8 mg Implant SUBCUT (15:29)
[2022-01-01 15:35] VITALS: BP 142/75; PULSE 57; RESP 18; TEMP 35.9; O2SAT 97
== END 2022-01-03 23:59 | disposition home or self-care (01) ==
PROVIDERS: PCP Family Medicine; Referring Provider Family Medicine; Visit Provider Nurse Practitioner Family
DX: Z51.11 Encounter for antineoplastic chemotherapy (principal); R74.8 Abnormal levels of other serum enzymes; C61 Malignant neoplasm of prostate
CPT/HCPCS: 36591; 80053; 84153; 85025; 96372; 96402; 96523; 99214; J9202

== ENCOUNTER → 2022-02-13 10:49 | Outpatient (BNVA) | payer OTHER, SELFPAY | PROVIDERS: PCP Family Medicine; Visit Provider Internal Medicine | DX: R74.01 Elevation of levels of liver transaminase levels (principal); K75.81 Nonalcoholic steatohepatitis (NASH) | CPT/HCPCS: 80061; 82103; 82728; 83550; 86038 ==

== ENCOUNTER 2022-04-05 10:00 | Oncology outpatient (recurring) (ONCR) | payer OTHER, SELFPAY ==
[2022-04-05 10:16] LABS: Basophils % 0.3 %; Eosinophils # 0.4 10^3/uL (0.0-0.8); Eosinophils % 5.2 %; Hemoglobin 11.8 g/dL (11.7-16.6); Lymphocytes # 0.8 10^3/uL (0.8-4.8); Lymphocytes % 12.2 %; Mean Corpuscular HGB Conc 33.7 g/dL (30.0-36.0); Mean Corpuscular Hemoglobin 33.6 pg (28.0-34.0); Mean Corpuscular Volume 99.7 fl (80-94); Mean Platelet Volume 9.8 fL (7.4-10.4); Monocytes # 0.5 10^3/uL (0.2-0.9); Monocytes % 7.4 %; Neutrophils # 5.11 10^3/uL (1.8-7.7); Neutrophils % 74.3 %; Nucleated Red Blood Cells % 0 %; Platelet Count 187 10^3/cmm (130-400); Red Blood Count 3.51 10^6/uL (4.1-5.3); Red Cell Distribution Width 12.5 % (12.1-15.1); White Blood Count 6.9 10^3/uL (4.0-10.0)
[2022-04-05 10:57] LABS: Prostate Specific Antigen < 0.014 ng/mL (0-4)
[2022-04-05] MEDS: leuprolide 22.5 mg Kit IM (11:21)
== END 2022-04-05 23:59 | disposition home or self-care (01) ==
PROVIDERS: Internal Medicine Hematology & Oncology; PCP Family Medicine; Visit Provider Nurse Practitioner Family
DX: C61 Malignant neoplasm of prostate (principal); Z79.818 Long term (current) use of other agents affecting estrogen receptors and estrogen levels; Z92.3 Personal history of irradiation
CPT/HCPCS: 36591; 84153; 85025; 96402; 96523; 99214; J9217

== ENCOUNTER → 2022-05-02 13:28 | Outpatient (BNVA) | payer OTHER, SELFPAY | PROVIDERS: PCP Family Medicine; Visit Provider Surgery | DX: R19.5 Other fecal abnormalities (principal) | CPT/HCPCS: 99203 ==

== ENCOUNTER 2022-06-25 17:06 | Emergency (ER) | payer OTHER, SELFPAY ==
[2022-06-25 17:20] VITALS: BP 113/62; PULSE 73; RESP 14; TEMP 36.8; O2SAT 96
--- NOTE | 2022-06-25 17:49 | USR_ITS ---
PROCEDURE INFORMATION: Exam: US Duplex Left Lower Extremity Veins, Limited Exam date and time: 06/25/2022 6:58 PM Age: 72 years old Clinical indication: Edema, localized; Lower extremity, left; Leg, lower; Patient HX: Lle posterior knee and calf pain with edema x 4 days. No trauma. No history of dvt. ; Additional info: Leg pain swelling TECHNIQUE: Imaging protocol: Real-time Duplex ultrasound of the Left Lower Extremity with 2-D pearl scale, color Doppler flow and spectral waveform analysis with image documentation. Limited exam focused on the left lower extremity veins. COMPARISON: CT abdomen pelvis w con* [id number] 01/07/2021 11:40 PM FINDINGS: Left deep veins: Unremarkable. The common femoral, femoral, proximal profunda femoral and popliteal veins are patent without thrombus. Normal Doppler waveforms. Normal compressibility and/or augmentation response. Left superficial veins: Unremarkable. Saphenofemoral junction is patent without thrombus. Soft tissues: Unremarkable. US/CV venous duplex [facility] [id number] IMPRESSION: No evidence of deep vein thrombosis.
--- NOTE | 2022-06-25 18:35 | W.ED.RECABL ---
HPI - Recheck/Abnormal Lab/Rx General: Chief Complaint: Recheck/Abnormal Lab/Rx Stated Complaint: [facility] left leg Time Seen by Provider: 06/25/22 17:49 Source: patient Mode of arrival: ambulatory Limitations: no limitations History of Present Illness: 72-year-old male who was sent here from [place] for left lower leg swelling a check a D-dimer today it was elevated they sent him here for a DVT rule out he states he does have pain at left lower leg is started this morning no redness no fever no injuries no chest pain or shortness of breath. Review of Systems Const: Denies: fever(s), chills, body aches or change in appetite Eyes: Denies: blurry vision or eye discomfort ENMT: Denies: throat pain or dental pain Card: Denies: chest pain Resp: Denies: dyspnea GI: Denies: abdominal pain, nausea, vomiting or diarrhea : Denies: dysuria Musc: Denies: neck pain or back pain Skin/Breast: Denies: rash Neuro: Denies: headache(s) Psych: Reports: depression Bradley/Lymph: Denies: easy bruising All/Imm: Denies: urticaria PFSH ED PFSH: Medical History JETT (acute kidney injury) Diabetes Hematochezia Hyperlipidemia Hypertension Leukopenia Prostate cancer Thrombocytopathia UTI (urinary tract infection) Surgical History History of ankle surgery Port-A-Cath in place (01/03/21) Family History Father Stroke Grandfather Stroke CAD (coronary artery disease) Family/Other Cancer Uncle - Liver cancer 2 other uncles with unknown cancer Mother Diabetes Mother No problems noted. Grandmother Diabetes Sister Diabetes Denies family history of Clotting disorder Dementia Hyperlipidemia Psychiatric illness Chronic kidney disease (CKD) Suicide Anesthesia complication Bleeding disorder Lung disease Hypertension Social History Smoking and tobacco status: never smoked Alcohol intake: former Physical Exam Const: COMMON NORMALS: no acute distress, patient oriented x3 and healthy appearing HENMT: COMMON NORMALS: normocephalic and atraumatic HEAD & SCALP: normocephalic and atraumatic Eye: COMMON NORMALS: Equal, round and reactive pupils present and EOMs intact bilaterally PUPIL: Yes Equal, round and reactive pupils present Neck/C-Spine: COMMON NORMALS: full ROM and supple Chest: COMMONS NORMALS: normal inspection of the chest and normal palpation of entire chest wall Resp: COMMON NORMALS: normal respiratory effort, No retractions, No use of accessory muscles and clear to auscultation bilaterally AUSCULTATION: clear to auscultation bilaterally Cardio: COMMON NORMALS: regular rate, regular rhythm and No murmurs present (Cardio) RATE: regular rate RHYTHM: regular rhythm GI: COMMON NORMALS: Normal to inspection, nondistended, normoactive bowel sounds present, Soft to palpation, non-tender and no masses PALPATION: Yes Soft to palpation Extremity: COMMON NORMALS: full ROM OTHER: swelling to left lower ext Neuro: COMMON NORMALS: patient oriented x3, moves all extremities and no focal motor deficits Psych: COMMON NORMALS: mental status grossly normal, Normal thought process present and cooperative THOUGHT PROCESS: Normal thought process present Skin: COMMON NORMALS: no rashes or lesions noted and no wounds GENERAL SKIN EXAM: no rashes or lesions noted Course Vital Signs: Vital signs: Vital Signs Temperature 98.2 F 06/25/22 17:20 Pulse Rate 75 06/25/22 18:51 Respiratory Rate 14 06/25/22 17:20 Blood Pressure 189/95 06/25/22 18:51 Pulse Oximetry 96 06/25/22 18:51 Oxygen Delivery Me thod 06/25/22 18:51 MDM - Recheck/Abnormal Lab/Rx Medical Decision Making Patient presents here with left leg swelling some slight erythema mild cellulitis his ultrasound showed no DVT we will start him on Bactrim he is stable for discharge he is to follow-up with his PCP and return if worsening. Lab Data 06/25/22 18:42 Radiology Impressions Venous Duplex 06/25/22 17:49 IMPRESSION: No evidence of deep vein thrombosis. Laboratory Results WBC 10.0 10^3/uL (4.0-10.0) 06/25/22 18:42 RBC 3.56 10^6/uL (4.1-5.3) L 06/25/22 18:42 Hgb 12.0 g/dL (11.7-16.6) 06/25/22 18:42 Hct 36.2 % (42.0-52.0) L 06/25/22 18:42 MCV 101.7 fl (80-94) H 06/25/22 18:42 MCH 33.7 pg (28.0-34.0) 06/25/22 18:42 MCHC 33.1 g/dL (30.0-36.0) 06/25/22 18:42 RDW 12.8 % (12.1-15.1) 06/25/22 18:42 Plt Count 147 10^3/cmm (130-400) 06/25/22 18:42 MPV 11.0 fL (7.4-10.4) H 06/25/22 18:42 Neut % (Auto) 83.9 % 06/25/22 18:42 Lymph % (Auto) 6.4 % 06/25/22 18:42 Rooks % (Auto) 5.1 % 06/25/22 18:42 Eos % (Auto) 3.4 % 06/25/22 18:42 Baso % (Auto) 0.3 % 06/25/22 18:42 Neut # (Auto) 8.42 10^3/uL (1.8-7.7) H 06/25/22 18:42 Lymph # (Auto) 0.6 10^3/uL (0.8-4.8) L 06/25/22 18:42 Rooks # (Auto) 0.5 10^3/uL (0.2-0.9) 06/25/22 18:42 Eos # (Auto) 0.3 10^3/uL (0.0-0.8) 06/25/22 18:42 Baso # (Auto) 0.0 10^3/uL (0.0-0.1) 06/25/22 18:42 Nucleated RBC % (auto) 0 % 06/25/22 18:42 Nucleated RBCs # 0.0 /100WBC 06/25/22 18:42 Discharge Plan Discharge Patient Disposition: Home Clinical Impression: Cellulitis Condition: Stable Prescriptions: New Bactrim DS 800-160 mg tablet 1 tab PO BID 10 Days Qty: 20 0RF No Action amlodipine 10 mg tablet 10 mg PO DAILY atenolol 100 mg tablet 100 mg PO DAILY losartan 100 mg tablet 100 mg PO DAILY Hold Instructions: Resume on 01/21/21. metformin 1,000 mg tablet 1,000 mg PO BID hydrochlorothiazide 25 mg tablet 25 mg PO DAILY glipizide 5 mg tablet 5 mg PO BID omega 2-ysk-crw-fish oil 500-100-1,000 mg capsule 1 cap PO DAILY fenofibrate micronized 200 mg capsule 200 mg PO DAILY Qty: 90 3RF prochlorperazine maleate [Compazine] 10 mg tablet 10 mg PO Q4H PRN (Reason: Mild Nausea) Qty: 30 3RF lorazepam 1 mg tablet 0.5 - 1 mg PO Q6H PRN (Reason: Severe Nausea) Qty: 30 3RF Discharge Orders: Discharge ED (Routine); Ordered 06/25/22 Ordered By: Srikanth Gómez Referrals: Maribel Dalton MD [Primary Care Provider] - 1-3 days Discharge Diet: Advance as tolerated Discharge Activity: Resume usual activity Patient Instructions: Cellulitis (ED) Coding Level of Care Code ED [employer] for [employer] Exam Comprehensive
[2022-06-25 18:51] VITALS: BP 189/95; PULSE 75; O2SAT 96
[2022-06-25 19:18] LABS: Basophils % 0.3 %; Eosinophils # 0.3 10^3/uL (0.0-0.8); Eosinophils % 3.4 %; Hematocrit 36.2 % (42.0-52.0); Lymphocytes # 0.6 10^3/uL (0.8-4.8); Lymphocytes % 6.4 %; Mean Corpuscular HGB Conc 33.1 g/dL (30.0-36.0); Mean Corpuscular Hemoglobin 33.7 pg (28.0-34.0); Mean Corpuscular Volume 101.7 fl (80-94); Monocytes # 0.5 10^3/uL (0.2-0.9); Monocytes % 5.1 %; Neutrophils # 8.42 10^3/uL (1.8-7.7); Neutrophils % 83.9 %; Nucleated Red Blood Cells % 0 %; Platelet Count 147 10^3/cmm (130-400); Red Blood Count 3.56 10^6/uL (4.1-5.3); Red Cell Distribution Width 12.8 % (12.1-15.1)
[2022-06-25] MEDS: sulfamethoxazole-trimeth DS 160-800 mg Tablet 1 TAB PO (19:54)
[2022-06-25 20:18] VITALS: BP 177/98; PULSE 79; RESP 18; O2SAT 96
== END 2022-06-25 19:57 | disposition home or self-care (01) ==
PROVIDERS: Family Medicine; Emergency Provider Emergency Medicine; PCP Family Medicine
DX: L03.116 Cellulitis of left lower limb (principal); M79.89 Other specified soft tissue disorders
CPT/HCPCS: 85025; 93971; 99284

== ENCOUNTER 2022-07-09 09:21 | Oncology outpatient (recurring) (ONCR) | payer OTHER, SELFPAY ==
[2022-07-09 11:30] LABS: Alanine Aminotransferase 171 U/L (0-41); Albumin Level 4.2 g/dL (3.5-5.2); Alkaline Phosphatase 116 U/L (40-130); Aspartate Amino Transferase 100 U/L (0-40); Blood Urea Nitrogen 18 mg/dL (8-23); Calcium 9.3 mg/dL (8.5-10.5); Carbon Dioxide 23 mmol/L (22-29); Chloride 98 mmol/L (98-107); Globulin 2.6 g/dL (1.3-4.6); Glucose 217 mg/dL (65-115); Osmolality Calculated 286 mOsm/kg (285-295); Sodium 134 mmol/L (136-145); Total Bilirubin 0.6 mg/dL (0.15-1.2); Total Protein 6.8 g/dL (6.6-8.7)
[2022-07-09 11:31] LABS: Prostate Specific Antigen < 0.014 ng/mL (0-4)
[2022-07-09] MEDS: leuprolide 22.5 mg Kit IM (12:28)
== END 2022-08-06 23:59 | disposition home or self-care (01) ==
PROVIDERS: PCP Family Medicine; Visit Provider Internal Medicine Hematology & Oncology
DX: C61 Malignant neoplasm of prostate (principal); R74.01 Elevation of levels of liver transaminase levels; K75.81 Nonalcoholic steatohepatitis (NASH); Z79.818 Long term (current) use of other agents affecting estrogen receptors and estrogen levels; Z79.899 Other long term (current) drug therapy
CPT/HCPCS: 80053; 84153; 96402; 99214; J9217

== ENCOUNTER 2022-09-10 13:00 | Oncology outpatient (recurring) (ONCR) | payer OTHER, SELFPAY | END 2022-10-04 23:59 | disposition home or self-care (01) | PROVIDERS: PCP Family Medicine; Visit Provider Internal Medicine Hematology & Oncology | DX: Z45.2 Encounter for adjustment and management of vascular access device (principal) | CPT/HCPCS: 96523 ==

== ENCOUNTER 2022-10-08 10:30 | Oncology outpatient (recurring) (ONCR) | payer OTHER, SELFPAY ==
[2022-10-08 11:12] VITALS: BP 156/77; PULSE 57; RESP 18; TEMP 36.9; O2SAT 95
[2022-10-08 11:13] VITALS: BMI 33.7
[2022-10-08 11:21] LABS: Basophils % 0.4 %; Eosinophils # 0.4 10^3/uL (0.0-0.8); Eosinophils % 6.2 %; Hematocrit 34.3 % (42.0-52.0); Hemoglobin 11.8 g/dL (11.7-16.6); Lymphocytes # 1.1 10^3/uL (0.8-4.8); Lymphocytes % 19.7 %; Mean Corpuscular HGB Conc 34.4 g/dL (30.0-36.0); Mean Corpuscular Hemoglobin 33.6 pg (28.0-34.0); Mean Corpuscular Volume 97.7 fl (80-94); Mean Platelet Volume 10.1 fL (7.4-10.4); Monocytes # 0.5 10^3/uL (0.2-0.9); Monocytes % 7.9 %; Neutrophils # 3.69 10^3/uL (1.8-7.7); Neutrophils % 64.7 %; Nucleated Red Blood Cells % 0 %; Platelet Count 170 10^3/cmm (130-400); Red Blood Count 3.51 10^6/uL (4.1-5.3); Red Cell Distribution Width 12.8 % (12.1-15.1); White Blood Count 5.7 10^3/uL (4.0-10.0)
[2022-10-08 11:49] LABS: Alanine Aminotransferase 144 U/L (0-41); Albumin Level 4.1 g/dL (3.5-5.2); Alkaline Phosphatase 101 U/L (40-130); Anion Gap 17.6 (5-19); Aspartate Amino Transferase 81 U/L (0-40); Blood Urea Nitrogen 20 mg/dL (8-23); Calcium 9.2 mg/dL (8.5-10.5); Carbon Dioxide 24 mmol/L (22-29); Chloride 104 mmol/L (98-107); Globulin 2.7 g/dL (1.3-4.6); Glucose 111 mg/dL (65-115); Osmolality Calculated 297 mOsm/kg (285-295); Potassium 3.6 mmol/L (3.5-5.1); Sodium 142 mmol/L (136-145); Testosterone Total 2.5 ng/dL (193-740); Total Bilirubin 0.4 mg/dL (0.15-1.2); Total Protein 6.8 g/dL (6.6-8.7)
[2022-10-08 11:55] LABS: Prostate Specific Antigen < 0.014 ng/mL (0-4)
[2022-10-08] MEDS: leuprolide 22.5 mg Kit IM (13:05)
[2022-10-08 13:11] VITALS: BP 170/81; PULSE 56; RESP 18; TEMP 35.9; O2SAT 97
== END 2022-11-03 23:59 | disposition home or self-care (01) ==
PROVIDERS: PCP Family Medicine; Visit Provider Internal Medicine Hematology & Oncology
DX: C61 Malignant neoplasm of prostate; R74.01 Elevation of levels of liver transaminase levels; K75.81 Nonalcoholic steatohepatitis (NASH); Z79.818 Long term (current) use of other agents affecting estrogen receptors and estrogen levels; Z79.899 Other long term (current) drug therapy
CPT/HCPCS: 80053; 84153; 84403; 85025; 96402; 99214; J9217

== ENCOUNTER 2022-10-24 07:48 | Outpatient (CLI) | payer OTHER, SELFPAY ==
--- NOTE | 2022-10-24 | ECG_ITS ---
[facility] Test Date: 2022-10-24 Pat Name: Barrera Menendez Department: Room: Gender: Male Policy Issue Clerk: : 1950 Requested By: Maribel Dalton Order Number: [id number] Alisha MD: Aniket Cunningham M.D. Interpretive Statements NAME OF STUDY: LEXISCAN SESTAMIBI STRESS TEST INDICATION: [Dyspnea on Exertion] Procedure: At the baseline, the blood pressure was 189/91 mmHg with a heart rate of 67 bpm. The electrocardiogram showed normal sinus rhythm, normal axis with normal ST and T's. The Lexiscan was infused over a period of 20 seconds. A total of 0.4 mg of Lexiscan was infused. The stress phase was continued for a total of 5 minutes. Heart rate was at the end of stress phase was 80 bpm and a blood pressure of 182/95 mmHg. The EKG at the peak infusion revealed normal sinus rhythm with no significant ST-T wave changes. Sestamibi was injected 20 seconds after the Lexiscan infusion. Blood pressure at the end of recovery phase was 184/95 mmHg with a heart rate of 80 bpm. Conclusion: 1. Normal EKG response to Lexiscan infusion 2. No Lexiscan induced chest pain or cardiac arrhythmia. 3. Normal blood pressure and heart rate response. 4. Sestamibi/sestamibi perfusion scan pending; see separate report. Electronically Signed On 11-11-2022 10:42:07 CDT by Aniket Cunningham M.D. [email or web address]
[2022-10-24 08:32] VITALS: BMI 33.7
--- NOTE | 2022-10-24 08:38 | NMCV_ITS ---
NM alana perf SPECT r/s* [id number] Barrera Menendez Age: 72 Gender: M : 1950 Exam Date: 10/24/2022 09:15 Ordering Phys: Maribel Dalton MD Technologist: YELITZA Saunders Exam Location: [facility] Indications: DYSPNEA STRESS TEST Please see separate stress test report in [facility] for full findings IMAGE PROTOCOL Stress/Rest 1 Lexiscan Day Radiopharmaceutical Dose (mCi) Administration Site Administered by Rest: Tc-99m 10.7 IV YELITZA Lugo Sestamibi Stress:Tc-99m 32.7 IV YELITZA Lugo Sestamibi Rest: 24-Oct-2022 60 Discovery 630 Stress: 24-Oct-2022 30 Discovery 630 0.4mg Lexiscan. Images obtained in supine and prone position. SPECT RESULTS Technical Quality: Excellent Raw Data Analysis: Normal Image Corrections: No attenuation or motion correction applied Summed Stress Score: 4 Summed Rest Score: 0 Summed Difference Score: 4 PERFUSION FINDINGS There is a medium sized, partially reversible perfusion defect noted in the apical lateral and inferolateal angel.This is consistent with medium sized area of prior infarct with significant sintia-infarct ischemia seen in the left circumflex artery territory. FUNCTIONAL RESULTS (calculated via Gated SPECT) Stress Image LV EF (%): 65 Stress EDV (mL):121 TID: 0.98 Stress ESV (mL):42 FUNCTIONAL FINDINGS: There is normal left ventricular systolic function. IMPRESSIONS 1. Abnormal myocardial perfusion imaging with medium sized area of prior infarct with significant sintia-infarct ischemia noted in the left circumflex artery territory. 2. LV systolic function is normal Aniket Cunningham MD (Electronically Signed) Final Date: 24 October 2022 11:44 S
[2022-10-24] MEDS: regadenoson 0.4 Mg/5 ml Syringe IVP (09:50)
[2022-10-24 10:06] VITALS: BP 168/84; PULSE 70
== END 2022-10-24 07:49 | disposition home or self-care (01) ==
LOC: CDL 07:49
PROVIDERS: PCP Family Medicine; Visit Provider Family Medicine
DX: R06.00 Dyspnea, unspecified (principal); Z95.828 Presence of other vascular implants and grafts
CPT/HCPCS: 36415; 78452; 93017; 96374; 99213; A9500; J2785

== ENCOUNTER → 2022-10-30 15:01 | Outpatient (BNVA) | payer OTHER, SELFPAY | PROVIDERS: PCP Family Medicine; Visit Provider Surgery | DX: Z95.828 Presence of other vascular implants and grafts (principal) | CPT/HCPCS: 36590; 99213 ==

== ENCOUNTER 2023-04-09 11:27 | Oncology outpatient (recurring) (ONCR) | payer OTHER, SELFPAY ==
[2023-04-09 13:33] LABS: Basophils % 0.5 %; Eosinophils # 0.3 10^3/uL (0.0-0.8); Eosinophils % 3.9 %; Hematocrit 36.7 % (37-53); Lymphocytes % 13.3 %; Mean Corpuscular HGB Conc 33.2 g/dL (30-55); Mean Corpuscular Hemoglobin 33.6 pg (27-33); Mean Corpuscular Volume 101.1 fl (82-101); Mean Platelet Volume 10.6 fL (7.4-10.4); Monocytes # 0.7 10^3/uL (0.2-0.9); Monocytes % 8.4 %; Neutrophils # 5.64 10^3/uL (1.8-7.7); Neutrophils % 72.9 %; Nucleated Red Blood Cells % 0 %; Platelet Count 175 10^3/cmm (157-399); Red Blood Count 3.63 10^6/uL (3.85-5.65); Red Cell Distribution Width 13.2 % (12.1-15.1); White Blood Count 7.74 10^3/uL (3.29-11.43)
[2023-04-09 14:00] LABS: Alanine Aminotransferase 165 U/L (0-41); Albumin Level 4.6 g/dL (3.5-5.2); Alkaline Phosphatase 105 U/L (40-130); Anion Gap 16.6 (5-19); Aspartate Amino Transferase 100 U/L (0-40); Blood Urea Nitrogen 21 mg/dL (8-23); Calcium 9.1 mg/dL (8.5-10.5); Carbon Dioxide 25 mmol/L (22-29); Chloride 101 mmol/L (98-107); Globulin 2.3 g/dL (1.3-4.6); Glucose 139 mg/dL (65-115); Osmolality Calculated 293 mOsm/kg (285-295); Potassium 3.6 mmol/L (3.5-5.1); Sodium 139 mmol/L (136-145); Testosterone Total 2.5 ng/dL (193-740); Total Bilirubin 0.4 mg/dL (0.15-1.2); Total Protein 6.9 g/dL (6.6-8.7)
[2023-04-09 14:01] LABS: Prostate Specific Antigen < 0.014 ng/mL (0-4)
== END 2023-05-06 23:59 | disposition home or self-care (01) ==
PROVIDERS: PCP Family Medicine; Visit Provider Internal Medicine Medical Oncology
DX: C61 Malignant neoplasm of prostate (principal); R74.01 Elevation of levels of liver transaminase levels; K75.81 Nonalcoholic steatohepatitis (NASH); Z79.818 Long term (current) use of other agents affecting estrogen receptors and estrogen levels; Z79.899 Other long term (current) drug therapy
CPT/HCPCS: 36415; 80053; 84153; 84403; 85025; 99215

== ENCOUNTER 2023-09-05 13:51 | Emergency (ER) | payer OTHER, SELFPAY ==
[2023-09-05 13:55] VITALS: BP 167/82; PULSE 73; RESP 18; TEMP 36.3; O2SAT 96
--- NOTE | 2023-09-05 14:18 | CT_ITS ---
WS: [id number] CT ABDOMEN AND PELVIS WITH CONTRAST HISTORY: gi bleed TECHNIQUE: Imaging performed of the abdomen and pelvis with IV contrast. Single phase imaging of the abdomen. Coronal and sagittal reformats are submitted. All CT scans at [facility] use at nav st one of these dose optimization techniques: automated exposure control; mA and/or kV adjustment per patient size (includes targeted exams where dose is matched to clinical indication); or iterative re construction. IV CONTRAST: Omnipaque 350; 100 mL IV. Oral contrast: No DLP: 1017.25 mGy.cm COMPARISON: 01/07/2021 Lower thorax: Lung bases are clear. Heart is normal size. Moderate sized hiatal hernia. Mild circumfe rential thickening of the distal esophagus but no mass is identified. Liver/biliary system: Normal size with no intrahepatic dilatation. Gallbladder: Mildly contracted gallbladder. Pancreas: Normal size pancreas and pancreatic duct. No adjacent inflammation. Spleen: Normal size spleen. No mass or infarct. Adrenal glands: Normal. Right kidney: Normal. Left kidney: 1.2 cm cyst upper pole. No obstruction. Aorta: Mild atherosclerosis with no aneurysm. Lymphadenopathy: None. Free fluid: There is a small amount of free fluid in the pelvis and along the paracolic gutters. GI tract: Moderately distended stomach with fluid and air. No small bowel obstruction. Very mild cons tipation. No active GI tract bleeding or obstruction. No significant wall thickening or inflammation. Abdominal wall: Small umbilical hernia. Mild soft tissue edema. Pelvis: No free fluid or adenopathy within the pelvis. Bones: Degenerative joint disease involving the hips. IMPRESSION: 1. No acute obstruction within the GI tract. No active bleeding is identified. 2. There is mild free fluid within the abdomen and pelvis. No free air. 3. Mild distal esophageal wall thickening.
[2023-09-05 14:30] LABS: Basophils % 0.4 %; Eosinophils # 0.4 10^3/uL (0.0-0.8); Eosinophils % 4.6 %; Hematocrit 36.3 % (37-53); Mean Corpuscular HGB Conc 32.8 g/dL (30-55); Mean Corpuscular Hemoglobin 33.5 pg (27-33); Mean Corpuscular Volume 102.3 fl (82-101); Mean Platelet Volume 10.4 fL (7.4-10.4); Monocytes # 0.7 10^3/uL (0.2-0.9); Monocytes % 8.3 %; Neutrophils # 5.88 10^3/uL (1.8-7.7); Neutrophils % 73.6 %; Nucleated Red Blood Cells % 0 %; Platelet Count 197 10^3/cmm (157-399); Red Blood Count 3.55 10^6/uL (3.85-5.65); Red Cell Distribution Width 14.3 % (12.1-15.1); White Blood Count 7.99 10^3/uL (3.29-11.43)
--- NOTE | 2023-09-05 14:40 | ED_ITS ---
HPI - GI Bleed 2 General: Chief complaint: GI Bleed Stated complaint: Sent by [facility] , Blood in stools Time Seen by Provider: 09/05/23 13:55 History of Present Illness: 73-year-old male presents to [facility] chief complaint of having 2 episodes of rectal bleeding and bloody stools prior to arrival patient is a he contacted the [facility] to suggest he go to local ER as her clinic is closed for additional blood work and workup. Patient does endorse a history of prostate cancer currently in remission patient does not recall any known history of internal or external hemorrhoids patient does report a colonoscopy roughly 4 to 5 months ago which polyps were removed reports no history of diverticulosis or diverticulitis patient presents to the ER with generalized weakness fatigue with intermittent upper abdominal pain with and without eating this been progressive getting worse for last couple of months .patient does not endorse any other abdominal surgeries. Patient reports no other associated symptoms. Associated symptoms: Reports abdominal pain and malaise; Denies chills, fever(s), headache(s), nausea, rash or vomiting Review of Systems 2 General: Reports: 10 or more systems reviewed and unremarkable except in HPI and below Const: Reports: fatigue and malaise; Denies: fever(s) or chills Eyes: Denies: change in vision or blurry vision Card: Denies: chest pain or palpitations Resp: Denies: dyspnea or productive cough GI: Reports: abdominal pain and hematochezia; Denies: nausea or vomiting : Denies: flank pain Musc: Denies: extremity pain or extremity swelling Skin/Breast: Denies: rash or pruritus Neuro: Denies: headache(s) Psych: Denies: anxiety or depression Bradley/Lymph: Denies: easy bleeding All/Imm: Denies: urticaria, throat swelling or facial swelling PFSH ED 2 PFSH: Medical History UTI (urinary tract infection) Thrombocytopathia Leukopenia JETT (acute kidney injury) Hematochezia Hyperlipidemia Diabetes Hypertension Prostate cancer Surgical History Port-A-Cath in place (01/03/21) History of ankle surgery Family History Father Stroke Grandfather Stroke CAD (coronary artery disease) Family/Other Cancer Uncle - Liver cancer 2 other uncles with unknown cancer Mother Diabetes Mother No problems noted. Grandmother Diabetes Sister Diabetes Denies family history of Clotting disorder Dementia Hyperlipidemia Psychiatric illness Chronic kidney disease (CKD) Suicide Anesthesia complication Bleeding disorder Lung disease Hypertension Social History Smoking and tobacco/nicotine status: never used tobacco/nicotine Alcohol intake: former Substance/Drug Use: never Physical Exam 2 Narrative: EXAM NARRATIVE: Patient appears nontoxic peers no acute distress slightly weak on exam no focal neurodeficit appreciated Const: COMMON NORMALS: no acute distress, patient oriented x3 and healthy appearing HENMT: COMMON NORMALS: normocephalic and atraumatic HEAD & SCALP: n ormocephalic and atraumatic Eye: COMMON NORMALS: Equal, round and reactive pupils present and EOMs intact bilaterally PUPIL: Yes Equal, round and reactive pupils present Neck/C-Spine: COMMON NORMALS: full ROM, supple and no JVD Lymph: LYMPHATIC: no lymphadenopathy noted Chest: COMMONS NORMALS: normal inspection of the chest and normal palpation of entire chest wall Resp: COMMON NORMALS: normal respiratory effort, No retractions and clear to auscultation bilaterally EFFORT & INSPECTION: Yes able to speak in complete sentences and Yes symmetric chest movement AUSCULTATION: clear to auscultation bilaterally Cardio: COMMON NORMALS: no JVD, regular rate and regular rhythm RATE: r egular rate RHYTHM: regular rhythm GI: COMMON NORMALS: Normal to inspection, nondistended, normoactive bowel sounds present and Soft to palpation; negative for non-tender (Mild tenderness appreciated right upper quadrant left upper quadrant epigas) INSPECTION: Yes normal to inspection PALPATION: Yes Soft to palpation : COMMON NORMALS: Yes no CVA tenderness BLADDER/KIDNEY EXAM: Yes no CVA tenderness OTHER: What appears to be questionable internal hemorrhoid appreciated at 12:00 nonbleeding or thrombosed on exam small external hemorrhoid noted is not bleeding. Hemoccult negative noted on rectal exam Back/Pelvis: COMMON NORMALS: no CVA tenderness Extremity: COMMON NORMALS: normal to inspection and full ROM Neuro: COMMON NORMALS: patient oriented x3, CN's II-XII intact bilaterally, moves all extremities and no focal motor deficits Psych: COMMON NORMALS: mental status grossly normal, Normal thought process present, cooperative and normal affect THOUGHT PROCESS: Normal thought process present Skin: COMMON NORMALS: no rashes or lesions noted GENERAL SKIN EXAM: no rashes or lesions noted Course 2 Vital Signs: Vital signs: Vital Signs Temperature 97.4 F L 09/05/23 13:55 Pulse Rate 73 09/05/23 13:55 Respiratory Rate 18 09/05/23 13:55 Blood Pressure 167/82 09/05/23 13:55 Pulse Oximetry 96 09/05/23 13:55 Oxygen Delivery Me thod Room Air 09/05/23 13:55 MDM - GI Bleed Medical Decision Making Due to patient's symptoms and condition lab work and imaging will be obtained we will continue to follow patient will be started on some Protonix for presumed upper gastritis. Lab Data 09/05/23 14:18 09/05/23 14:18 Laboratory Results WBC 7.99 10^3/uL (3.29-11.43) 09/05/23 14:18 RBC 3.55 10^6/uL (3.85-5.65) L 09/05/23 14:18 Hgb 11.90 g/dL (11.27-16.99) 09/05/23 14:18 Hct 36.3 % (37-53) L 09/05/23 14:18 MCV 102.3 fl (82-101) H 09/05/23 14:18 MCH 33.5 pg (27-33) H 09/05/23 14:18 MCHC 32.8 g/dL (30-55) 09/05/23 14:18 RDW 14.3 % (12.1-15.1) 09/05/23 14:18 Plt Count 197 10^3/cmm (157-399) 09/05/23 14:18 MPV 10.4 fL (7.4-10.4) 09/05/23 14:18 Neut % (Auto) 73.6 % 09/05/23 14:18 Lymph % (Auto) 12.0 % 09/05/23 14:18 Foard % (Auto) 8.3 % 09/05/23 14:18 Eos % (Auto) 4.6 % 09/05/23 14:18 Baso % (Auto) 0.4 % 09/05/23 14:18 Neut # (Auto) 5.88 10^3/uL (1.8-7.7) 09/05/23 14:18 Lymph # (Auto) 1.0 10^3/uL (0.8-4.8) 09/05/23 14:18 Foard # (Auto) 0.7 10^3/uL (0.2-0.9) 09/05/23 14:18 Eos # (Auto) 0.4 10^3/uL (0.0-0.8) 09/05/23 14:18 Baso # (Auto) 0.0 10^3/uL (0.0-0.1) 09/05/23 14:18 Nucleated RBC % (auto) 0 % 09/05/23 14:18 Nucleated RBCs # 0.0 /100WBC 09/05/23 14:18 PT 12.40 SECONDS (12.1-14.9) 09/05/23 14:18 INR 0.90 (0.8-1.2) 09/05/23 14:18 APTT 27.0 SECONDS (23.9-36.7) 09/05/23 14:18 Sodium 141 mmol/L (136-145) 09/05/23 14:18 Potassium 4.4 mmol/L (3.5-5.1) 09/05/23 14:18 Chloride 106 mmol/L (98-107) 09/05/23 14:18 Carbon Dioxide 23 mmol/L (22-29) 09/05/23 14:18 Anion Gap 16.4 (5-19) 09/05/23 14:18 BUN 20 mg/dL (8-23) 09/05/23 14:18 Creatinine 1.2 mg/dL (0.7-1.2) 09/05/23 14:18 GFR Calculation Not Reportable 09/05/23 14:18 Glucose 174 mg/dL (65-115) H 09/05/23 14:18 Calculated Osmolality 299 mOsm/kg (285-295) H 09/05/23 14:18 Calcium 9.0 mg/dL (8.5-10.5) 09/05/23 14:18 Total Bilirubin 0.4 mg/dL (0.15-1.2) 09/05/23 14:18 AST 81 U/L (0-40) H 09/05/23 14:18 ALT 127 U/L (0-41) H 09/05/23 14:18 Alkaline Phosphatase 134 U/L (40-130) H 09/05/23 14:18 C-Reactive Protein 3.0 mg/L (0.0-4.9) 09/05/23 14:18 Total Protein 7.2 g/dL (6.6-8.7) 09/05/23 14:18 Albumin 4.4 g/dL (3.5-5.2) 09/05/23 14:18 Globulin 2.8 g/dL (1.3-4.6) 09/05/23 14:18 Urine Color Yellow (Yellow) 09/05/23 15:54 Urine Appearance Clear (CLEAR) 09/05/23 15:54 Urine pH 5 (5-7) 09/05/23 15:54 Ur Specific Mchenry 1.005 (1.005-1.030) 09/05/23 15:54 Urine Protein Trace (Negative) 09/05/23 15:54 Urine Glucose (UA) 4+ (Normal) H 09/05/23 15:54 Urine Ketones Negative (Negative) 09/05/23 15:54 Urine Blood Neg (Negative) 09/05/23 15:54 Urine Nitrate Negative (Negative) 09/05/23 15:54 Urine Bilirubin Neg (Negative) 09/05/23 15:54 Urine Urobilinogen Norm mg/dL (Negative) 09/05/23 15:54 Ur Leukocyte Esterase Negative (Negative) 09/05/23 15:54 Urine RBC 0-4 /hpf (0-2) H 09/05/23 15:54 Urine WBC 0-4 /hpf (0-5) H 09/05/23 15:54 Ur Squamous Epith Cells 0-4 /hpf (0-5) H 09/05/23 15:54 Amorphous Sediment Not Reportable 09/05/23 15:54 Urine Bacteria Trace /hpf (NONE) 09/05/23 15:54 Blood Type B Positive 09/05/23 14:18 Rho(D) Type Rh positive 09/05/23 14:18 Antibody Screen Negative 09/05/23 14:18 All radiology interpretation(s) finalized by discharge Discharge Plan Discharge Patient Disposition: Home Clinical Impression: Bright red rectal bleeding, Internal hemorrhoid, bleeding Condition: Stable Prescriptions: New hydrocortisone acetate 25 mg suppository 25 mg WI DAILY 10 Days Qty: 12 0RF No Action amlodipine 10 mg tablet 10 mg PO DAILY atenolol 100 mg tablet 100 mg PO DAILY metformin 1,000 mg tablet 1,000 mg PO BID hydrochlorothiazide 25 mg tablet 25 mg PO DAILY omega [id number] oil 500-100-1,000 mg capsule 1 cap PO BID aspirin 325 mg tablet 325 mg PO DAILY pravastatin 40 mg Tablet 40 mg PO QPM hydralazine 25 mg Tablet 25 mg PO TID PRN (Reason: Blood Pressure) losartan 100 mg Tablet 100 mg PO DAILY empagliflozin 25 mg Tablet 12.5 mg PO DAILY Discharge Orders: Discharge ED (Routine); Ordered 09/05/23 Ordered By: Syed Joya Referrals: Maribel Dalton MD [Primary Care Provider] - 4-7 days Discharge Diet: GI Soft Discharge Activity: Resume usual activity Patient Instructions: Hydrocortisone (Into the rectum) (Anusol-HC, Procto- Chente,..., Hemorrhoids (ED), Hemorrhoids (DC), Rectal Bleeding (ED) Activity Restrictions/Additional Instructions: Please increase amount of fiber in your diet as it appears this time the rectal bleeding is caused by concerns for internal hemorrhoids you have also been provided some rectal suppositories to be used daily for the next 10 days. Please return if any of your symptoms persist or worse please further follow-up primary care doctor in 2 to 3 days as needed. Coding Level of Care Code ED Hydrodynamicist for Fátima Rhodes
[2023-09-05 14:51] LABS: Alanine Aminotransferase 127 U/L (0-41); Albumin Level 4.4 g/dL (3.5-5.2); Alkaline Phosphatase 134 U/L (40-130); Anion Gap 16.4 (5-19); Aspartate Amino Transferase 81 U/L (0-40); Blood Urea Nitrogen 20 mg/dL (8-23); Carbon Dioxide 23 mmol/L (22-29); Chloride 106 mmol/L (98-107); Creatinine Clr Calc Pharmacy 67.4147; Globulin 2.8 g/dL (1.3-4.6); Glucose 174 mg/dL (65-115); Osmolality Calculated 299 mOsm/kg (285-295); Potassium 4.4 mmol/L (3.5-5.1); Sodium 141 mmol/L (136-145); Total Bilirubin 0.4 mg/dL (0.15-1.2); Total Protein 7.2 g/dL (6.6-8.7)
[2023-09-05] MEDS: sodium chloride 0.9% 500 ML IV (15:10)
[2023-09-05] MEDS: pantoprazole 40 mg SDV IVP (15:10)
[2023-09-05] MEDS: iohexol 350 mg/mL 500 mL Btl (per mL) IV (15:25)
[2023-09-05 16:01] VITALS: BP 156/84; PULSE 69; O2SAT 99
[2023-09-05 16:02] LABS: Add Urine Culture? No; Add Urine Microscopic? YES; Bacteria Urine TRACE /hpf; Bilirubin Urine Neg (Negative); Blood Urine Neg (Negative); Glucose Urine UA 4+ (Normal); Ketones Urine Negative (Negative); Leukocyte Esterase Urine Negative (Negative); Nitrate Urine Negative (Negative); Protein Urine Trace (Negative); RBC Urine 0-4 /hpf (0-2); Specific Gravity, Urine 1.005 (1.005-1.030); Squamous Epithelial Cell Urine 0-4 /hpf (0-5); Urine Appearance Clear (CLEAR); Urine Color Yellow (Yellow); Urobilinogen Urine Norm (Negative); WBC Urine 0-4 /hpf (0-5); pH Urine 5 (5-7)
[2023-09-05 18:14] VITALS: BP 180/90; PULSE 72; O2SAT 95
== END 2023-09-05 17:51 | disposition home or self-care (01) ==
PROVIDERS: Emergency Provider Emergency Medicine; PCP Family Medicine
DX: K62.5 Hemorrhage of anus and rectum (principal); K64.8 Other hemorrhoids; Z79.82 Long term (current) use of aspirin; Z79.84 Long term (current) use of oral hypoglycemic drugs; E78.5 Hyperlipidemia, unspecified; E11.9 Type 2 diabetes mellitus without complications; I10 Essential (primary) hypertension; Z85.46 Personal history of malignant neoplasm of prostate
CPT/HCPCS: 74177; 80053; 81001; 85025; 85610; 85730; 86140; 86850; 86900; 96374; 99285; C9113; J7040; Q9967

== ENCOUNTER 2023-11-05 12:12 | Oncology outpatient (recurring) (ONCR) | payer OTHER, SELFPAY ==
[2023-11-05 12:42] LABS: Basophils % 0.4 %; Eosinophils # 0.3 10^3/uL (0.0-0.8); Eosinophils % 4.5 %; Hematocrit 30.1 % (37-53); Lymphocytes # 0.9 10^3/uL (0.8-4.8); Lymphocytes % 12.8 %; Mean Corpuscular HGB Conc 32.2 g/dL (30-55); Mean Corpuscular Hemoglobin 32.9 pg (27-33); Monocytes # 0.7 10^3/uL (0.2-0.9); Neutrophils # 5.07 10^3/uL (1.8-7.7); Neutrophils % 70.8 %; Nucleated Red Blood Cells % 0 %; Platelet Count 174 10^3/cmm (157-399); Red Blood Count 2.95 10^6/uL (3.85-5.65); Red Cell Distribution Width 14.7 % (12.1-15.1); White Blood Count 7.17 10^3/uL (3.29-11.43)
[2023-11-05 13:08] LABS: Alanine Aminotransferase 95 U/L (0-41); Albumin Level 4.1 g/dL (3.5-5.2); Alkaline Phosphatase 136 U/L (40-130); Blood Urea Nitrogen 23 mg/dL (8-23); Calcium 8.9 mg/dL (8.5-10.5); Carbon Dioxide 24 mmol/L (22-29); Chloride 102 mmol/L (98-107); Globulin 2.6 g/dL (1.3-4.6); Glucose 122 mg/dL (65-115); Osmolality Calculated 291 mOsm/kg (285-295); Sodium 138 mmol/L (136-145); Testosterone Total 25.6 ng/dL (193-740); Total Bilirubin 0.6 mg/dL (0.15-1.2); Total Protein 6.7 g/dL (6.6-8.7)
[2023-11-05 13:10] LABS: Prostate Specific Antigen < 0.014 ng/mL (0-4)
[2023-11-05 13:11] LABS: Anion Gap 16.3 (5-19); Potassium 4.3 mmol/L (3.5-5.1)
[2023-11-05 13:12] LABS: Aspartate Amino Transferase 79 U/L (0-40)
== END 2023-12-05 23:59 | disposition home or self-care (01) ==
PROVIDERS: Nurse Practitioner Family; PCP Family Medicine; Visit Provider Internal Medicine Medical Oncology
DX: C61 Malignant neoplasm of prostate (principal); K75.81 Nonalcoholic steatohepatitis (NASH); Z79.899 Other long term (current) drug therapy; Z92.3 Personal history of irradiation; Z92.29 Personal history of other drug therapy
CPT/HCPCS: 36415; 80053; 84153; 84403; 85025; 99213

== ENCOUNTER 2024-05-06 12:10 | Oncology outpatient (recurring) (ONCR) | payer OTHER, SELFPAY ==
[2024-05-06 12:40] LABS: Basophils % 0.3 %; Eosinophils # 0.4 10^3/uL (0.0-0.8); Eosinophils % 5.6 %; Hematocrit 29.4 % (37-53); Lymphocytes # 0.8 10^3/uL (0.8-4.8); Lymphocytes % 9.8 %; Mean Corpuscular HGB Conc 31.3 g/dL (30-55); Mean Platelet Volume 9.9 fL (7.4-10.4); Monocytes # 0.8 10^3/uL (0.2-0.9); Monocytes % 10.1 %; Neutrophils # 5.63 10^3/uL (1.8-7.7); Neutrophils % 72.9 %; Nucleated Red Blood Cells % 0 %; Platelet Count 232 10^3/cmm (157-399); Red Blood Count 2.97 10^6/uL (3.85-5.65); Red Cell Distribution Width 18.3 % (12.1-15.1); White Blood Count 7.72 10^3/uL (3.29-11.43)
[2024-05-06 13:10] LABS: Alanine Aminotransferase 61 U/L (0-41); Albumin Level 4.2 g/dL (3.5-5.2); Alkaline Phosphatase 156 U/L (40-130); Aspartate Amino Transferase 54 U/L (0-40); Blood Urea Nitrogen 19 mg/dL (8-23); Calcium 8.3 mg/dL (8.5-10.5); Carbon Dioxide 21 mmol/L (22-29); Chloride 104 mmol/L (98-107); Globulin 2.7 g/dL (1.3-4.6); Glucose 107 mg/dL (65-115); Osmolality Calculated 291 mOsm/kg (285-295); Sodium 139 mmol/L (136-145); Total Bilirubin 0.4 mg/dL (0.15-1.2); Total Protein 6.9 g/dL (6.6-8.7)
[2024-05-06 13:14] LABS: Prostate Specific Antigen < 0.014 ng/mL (0-4)
== END 2024-05-06 23:59 | disposition home or self-care (01) ==
PROVIDERS: Internal Medicine Hematology & Oncology; PCP Family Medicine; Visit Provider Internal Medicine Medical Oncology
DX: C61 Malignant neoplasm of prostate (principal); Z79.818 Long term (current) use of other agents affecting estrogen receptors and estrogen levels; Z92.3 Personal history of irradiation
CPT/HCPCS: 36415; 80053; 84153; 84403; 85025; 99214

== ENCOUNTER 2024-11-03 10:33 | Oncology outpatient (recurring) (ONCR) | payer OTHER, SELFPAY ==
[2024-11-03 11:00] LABS: Basophils % 0.3 %; Eosinophils # 0.3 10^3/uL (0.0-0.8); Eosinophils % 3.4 %; Hematocrit 27.4 % (37-53); Lymphocytes # 0.6 10^3/uL (0.8-4.8); Lymphocytes % 8.2 %; Mean Corpuscular HGB Conc 29.6 g/dL (30-55); Mean Corpuscular Hemoglobin 27.9 pg (27-33); Mean Corpuscular Volume 94.5 fl (82-101); Mean Platelet Volume 10.3 fL (7.4-10.4); Monocytes # 0.7 10^3/uL (0.2-0.9); Monocytes % 9.6 %; Neutrophils # 5.87 10^3/uL (1.8-7.7); Neutrophils % 77.3 %; Nucleated Red Blood Cells % 0 %; Platelet Count 188 10^3/cmm (157-399); Red Cell Distribution Width 17.9 % (12.1-15.1); White Blood Count 7.59 10^3/uL (3.29-11.43)
[2024-11-03 11:29] LABS: Alanine Aminotransferase 56 U/L (0-41); Albumin Level 3.9 g/dL (3.5-5.2); Alkaline Phosphatase 186 U/L (40-130); Anion Gap 16.5 (5-19); Aspartate Amino Transferase 62 U/L (0-40); Blood Urea Nitrogen 16 mg/dL (8-23); Calcium 8.6 mg/dL (8.5-10.5); Carbon Dioxide 24 mmol/L (22-29); Chloride 101 mmol/L (98-107); Globulin 3.5 g/dL (1.3-4.6); Glucose 146 mg/dL (65-115); Lactate Dehydrogenase 191 U/L (135-225); Osmolality Calculated 290 mOsm/kg (285-295); Potassium 3.5 mmol/L (3.5-5.1); Sodium 138 mmol/L (136-145); Testosterone Total 27.7 ng/dL (193-740); Total Bilirubin 0.3 mg/dL (0.15-1.2); Total Protein 7.4 g/dL (6.6-8.7)
[2024-11-03 11:40] LABS: Prostate Specific Antigen < 0.014 ng/mL (0-4)
== END 2024-11-03 23:59 | disposition home or self-care (01) ==
PROVIDERS: Internal Medicine Hematology & Oncology; PCP Family Medicine; Visit Provider Internal Medicine
DX: C61 Malignant neoplasm of prostate (principal); Z79.899 Other long term (current) drug therapy; Z92.3 Personal history of irradiation; Z92.25 Personal history of immunosuppression therapy; Z92.21 Personal history of antineoplastic chemotherapy; K74.60 Unspecified cirrhosis of liver; I85.10 Secondary esophageal varices without bleeding
CPT/HCPCS: 36415; 80053; 83615; 84153; 84403; 85025; 99213

== ENCOUNTER 2024-12-11 08:52 | Inpatient (IN) | payer OTHER, MEDICARE, SELFPAY ==
--- OUTSIDE RECORDS SUMMARY | 2024-03-12 04:30 | XMS_ITS | Encounter Summary ---
Author Name [facility] [place] [facility] [place] Address [address] [place] [id number] Care Team Providers Care Investigation Division Lieutenant Name Role Phone MARIBEL ARGUELLO Primary Care Provider Unavailabl e Insurance Providers: All historical and current Section Date Range: From patient's date of to the date document was created. This section includes the names of all active insurance providers for the patient. Insurance Provider Type of Coverage Plan Name Start of Policy Coverage End of Policy Coverage Group Number Member ID Insurance Provider's Telephone Number Policy Puga's Name Patient's Relationship to Policy Puga MEDICARE (WNR) MEDICARE (M) PART A May 07, 2014 PART A [id number] CLARITA SIERRA PATIENT MEDICARE (WNR) MEDICARE (M) PART A May 07, 2014 PART A [id number] CLARITA SIERRA PATIENT Selected Encounter This section includes the information on [place] at [place] for the Encounter. Date/Time Encounter Type Encounter Description Reason Provider Source Mar 12, 2024 09:30 AM OFFICE O/P EST HI 40 MIN PRIMARY CARE/MEDICINE ICD-10-CM I10 Essential (primary) hypertension BETTY ARGUELLO Y [facility] Encounter Template Text not used by [place] Assessments - Encounter Diagnoses This section includes the primary and secondary diagnoses documented for the Encounter. Date/Time Primary/Secondary Diagnosis Diagnosis Name Provider Source Mar 12, 2024 10:28 AM PRIMARY Essential (primary) [facility] Mar 12, 2024 10:28 AM SECONDARY Carcinoma in situ of right eye MARIBEL ARGUELLO [facility] Mar 12, 2024 10:28 AM SECONDARY Contact with and exposure to other hazardous substances SAUNDRAMARIBEL [facility] Mar 12, 2024 10:28 AM SECONDARY Fatty (change of) liver, not elsewhere classified SAUNDRA,TAMMY [facility] Mar 12, 2024 10:28 AM SECONDARY Gastrointestinal hemorrhage, unspecified SAUNDRA,MARIBEL [facility] Mar 12, 2024 10:28 AM SECONDARY Hyperlipidemia, unspecified SAUNDRA,TAMMY [facility] Mar 12, 2024 10:28 AM SECONDARY Malignant neoplasm of prostate SAUNDRA,MARIBEL [facility] Mar 12, 2024 10:28 AM SECONDARY Obesity, unspecified SAUNDRA,MARIBEL [facility] Mar 12, 2024 10:28 AM SECONDARY Polyp of colon SAUNDRA,MARIBEL [facility] Mar 12, 2024 10:28 AM SECONDARY 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 This section includes future appointments and future orders which are active, pending or scheduled. Future Appointments This section includes appointments that were scheduled to occur 6 months from the date of the Encounter, up to a maximum of 20 appointments. The data comes from all [place] treatment facilities. Appointment Date/Time Appointment Type Appointme nt Facility Name Mar 24, 2024 11:30 AM AMBULATORY - NONE [place] [facility] Mar 31, 2024 09:00 AM AMBULATORY - SURGERY [place] [facility] May 06, 2024 12:30 PM AMBULATORY - [place]IC[place] [facility] May 19, 2024 09:30 AM AMBULATORY - MEDICINE [place] [facility] Jun 22, 2024 08:45 AM AMBULATORY - MEDICINE [place] [facility] Aug 04, 2024 10:00 AM AMBULATORY - MEDICINE [place] [facility] Sep 03, 2024 08:40 AM AMBULATORY - MEDICINE [facility] Lab Results: +/- 30 days of the encounter This section includes the Chemistry and Hematology Lab Results on record with [place] for the patient. Radiology Reports and Pathology Reports are provided separately, in subsequent sections. Lab Results This section contains the Chemistry/Hematology Results that were resulted 30 days before or 30 daysafter the date of the Encounter. Date/Time Source Result Type Result - Unit Interpretation Reference Range Specimen Type Comment Mar 12, 2024 10:04 AM [facility] BASIC METABOLIC PANEL PLASMA Specimen Type: PLASMA No comment entered. Ordering Provider: MARIBEL ARGUELLO Report Released Date/Time: Mar 12, 2024 09:55 AM Reporting Lab: [place] [facility] [address] [place] [address] Performing Lab: [place] [facility] [address] [place] [address] CREATININE 1.14 mg/dL 0.7-1.3 UREA NITROGEN 18 mg/dL 9-25 GLUCOSE 134 mg/dL H 72-99 SODIUM 137 meq/L 136-145 POTASSIUM 4.2 meq/L 3.5-5 CHLORIDE 104 meq/L 98-107 CARBON DIOXIDE 21 meq/L L 22-31 CALCIUM 9.2 mg/dL 8.4-10.4 EGFR (CKD-EPI 2020) 67 Mar 12, 2024 10:04 AM [facility] CBC BLOOD Specimen Type: BLOOD No comment entered. Ordering Provider: MARIBEL ARGUELLO Report Released Date/Time: Mar 12, 2024 09:48 AM Reporting Lab: [place] [facility] [address] [place] [address] Performing Lab: [place] [facility] [address] [place] [address] WBC 9.7 10*3/uL 3.6-11.2 RBC 3.35 10*6/uL L 4.10-5.70 HGB 9.8 g/dL L 13.1-16.8 HCT 31.6 L 38.2-48.4 MCV 94.3 fL 80.0-100.0 MCH 29.3 pg 27.0-34.0 MCHC 31.0 g/dL L 33.0-36.0 PLT 221 10*3/uL 150-400 MPV 10.9 fL 7.5-11.2 RDW 17.2 H 11.8-15.1 LYMPHOCYTES, AUTO % 11.2 MONOCYTES, AUTO % 7.8 NEUTROPHILS, AUTO % 73.5 EOSINOPHILS, AUTO % 4.8 BASOPHILS, AUTO % 0.5 LYMPHOCYTES, ABSOLUTE 1.08 10*3/uL 0.77- 4.50 MONOCYTES, ABSOLUTE 0.75 10*3/uL 0.19-0. 8 NEUTROPHILS, ABSOLUTE 7.10 10*3/uL 2.10- 8.00 EOSINOPHILS, ABSOLUTE 0.46 10*3/uL 0.00- 0.60 BASOPHILS, ABSOLUTE 0.05 10*3/uL 0.00-0. 20 IMMATURE GRANS, AUTO % 2.2 IMMATURE GRANS, AUTO ABS 0.21 10*3/uL H 0. 00-0.05 Mar 12, 2024 10:04 AM [facility] HEPATIC FUNCTION PROFILE (PB) PLASMA Specimen Type: PLASMA No comment entered. Ordering Provider: MARIBEL ARGUELLO Report Released Date/Time: Mar 12, 2024 10:03 AM Reporting Lab: [place] [facility] [address] [place] [address] Performing Lab: [place] [facility] [address] [place] [address] PROTEIN 7.3 g/dL 6-8.6 ALBUMIN 4.2 g/dL 3.4-5 TOTAL BILIRUBIN 0.5 mg/dL 0.2-1.2 ALKALINE PHOSPHATASE 130 U/L 40-150 AST/SGOT 70 U/L H 5-34 ALT/SGPT 91 U/L H 8-40 CONJ. BILIRUBIN 0.2 mg/dL 0-0.5 Feb 13, 2024 08:05 AM [facility] HGA1C BLOOD Specimen Type: BLOOD No comment entered. Ordering Provider: MARIBEL ARGUELLO Report Released Date/Time: Mar 20, 2023 10:28 AM Reporting Lab: [place] [facility] [address] [place] [address] Performing Lab: [place] [facility] [address] [place] [address] HGA1C 7.7 H 4.0-6.0 Feb 13, 2024 08:05 AM [facility] TSH (MA-PB) SERUM Specimen Typ e: SERUM No comment entered. Ordering Provider: MARIBEL ARGUELLO Report Released Date/Time: Mar 20, 2023 10:28 AM Reporting Lab: [place] [facility] [address] [place] [address] Performing Lab: [place] [facility] [address] [place] [address] TSH 2.544 u[IU]/mL 0.47-5 Feb 13, 2024 08:05 AM [facility] CHOLESTEROL PANEL (PB) PLASMA Specimen Type: P LASMA Comment: LDL calculation invalid when Triglyceride exceeds 250 mg/dl Ordering Provider: MARIBEL ARGUELLO Report Released Date/Time: Mar 20, 2023 10:28 AM Reporting Lab: [place] [facility] [address] [place] [address] Performing Lab: [place] [facility] [address] [place] [address] CHOLESTEROL 245 mg/dL H 0-200 TRIGLYCERIDE 316 mg/dL H 0-150 CALCULATED LDL comment mg/dL HDL(New) 48.0 mg/dL H >40 HDL % OF TOTAL CHOLESTEROL (PB) 19.6 >25 DIRECT LDL(MA) 110.4 mg/dL H 0-99.9 Feb 13, 2024 08:05 AM [facility] COMPREHENSIVE METABOLIC PANEL PLASMA Specimen Type: PLASMA Comment: LDL calculation invalid when Triglyceride exceeds 250 mg/dl Ordering Provider: MARIBEL ARGUELLO Report Released Date/Time: Mar 20, 2023 10:28 AM Reporting Lab: [place] [facility] [address] [place] [address] Performing Lab: [place] [facility] [address] [place] [address] CREATININE 1.13 mg/dL 0.7-1.3 UREA NITROGEN 21 mg/dL 9-25 GLUCOSE 155 mg/dL H 72-99 SODIUM 137 meq/L 136-145 POTASSIUM 3.8 meq/L 3.5-5 CHLORIDE 104 meq/L 98-107 CARBON DIOXIDE 21 meq/L L 22-31 CALCIUM 9.1 mg/dL 8.4-10.4 PROTEIN 7.5 g/dL 6-8.6 ALBUMIN 4.2 g/dL 3.4-5 TOTAL BILIRUBIN 0.6 mg/dL 0.2-1.2 ALKALINE PHOSPHATASE 140 U/L 40-150 AST/SGOT 86 U/L H 5-34 ALT/SGPT 108 U/L H 8-40 EGFR (CKD-EPI 2020) 68 Feb 13, 2024 08:04 AM [facility] PROST. SPECIFIC AG.(PB-STL) SERUM Specimen Ty pe: SERUM No comment entered. Ordering Provider: MARIBEL ARGUELLO Report Released Date/Time: Mar 20, 2023 10:45 AM Reporting Lab: [place] [facility] [address] [place] [address] Performing Lab: [place] [facility] [address] [place] [address] PROST. SPECIFIC AG.(PB-STL) 0.00 ng/mL 0 -4 Feb 13, 2024 08:04 AM [facility] CBC BLOOD Specimen Type: BLOOD No comment entered. Ordering Provider: MARIBEL ARGUELLO Report Released Date/Time: Mar 20, 2023 10:28 AM Reporting Lab: [place] [facility] [address] [place] [address] Performing Lab: [place] [facility] [address] [place] [address] WBC 9.4 10*3/uL 3.6-11.2 RBC 3.09 10*6/uL L 4.10-5.70 HGB 9.1 g/dL L 13.1-16.8 HCT 29.3 L 38.2-48.4 MCV 94.8 fL 80.0-100.0 MCH 29.4 pg 27.0-34.0 MCHC 31.1 g/dL L 33.0-36.0 PLT 215 10*3/uL 150-400 MPV 11.3 fL H 7.5-11.2 RDW 15.8 H 11.8-15.1 LYMPHOCYTES, AUTO % 9.3 MONOCYTES, AUTO % 8.6 NEUTROPHILS, AUTO % 75.8 EOSINOPHILS, AUTO % 4.2 BASOPHILS, AUTO % 0.5 LYMPHOCYTES, ABSOLUTE 0.88 10*3/uL 0.77- 4.50 MONOCYTES, ABSOLUTE 0.81 10*3/uL H 0.19-0. 8 NEUTROPHILS, ABSOLUTE 7.13 10*3/uL 2.10- 8.00 EOSINOPHILS, ABSOLUTE 0.40 10*3/uL 0.00- 0.60 BASOPHILS, ABSOLUTE 0.05 10*3/uL 0.00-0. 20 IMMATURE GRANS, AUTO % 1.6 IMMATURE GRANS, AUTO ABS 0.15 10*3/uL H 0. 00-0.05 Vital Signs: All taken on the encounter date This section contains inpatient and outpatient Vital Signs collected on the date of the Encounter. Date/Time Temperature Pulse Blood Pressure Respiratory Rate SP02 Pain Height Weight Body Mass Index Source Mar 12, 2024 09:38 AM 98.3 67 129/76 20 96 3 70.0 227.9 33 [facility] [place] [facility] Social History: Smoking Status (Most current) and Tobacco Use (All prior to encounter date) This section includes the most current, and the historical, smoking and tobacco- related health factors from the [place] facility where the Encounter took place. Current Smoking Status This section includes the most current smoking, or tobacco-related health factor, from the [place] facility where the Encounter took place. Date/Time Current Smoking Status Comment Facil ity Mar 12, 2024 09:30 AM VA-TOBACCO NEVER USED [facility] [place] [facility] Tobacco Use History This section includes a history of the smoking, or tobacco-related health factors, that were collected on or before the date of the Encounter. The data comes from the [place] facility where the Encounter took place. Date/Time Smoking Status/Tobacco Use Comment F acility Mar 20, 2023 10:00 AM VA-TOBACCO NEVER USED [facility] [place] [facility] Mar 27, 2022 08:30 AM VA-TOBACCO NEVER USED [facility] [place] [facility] Nov 01, 2020 01:00 PM VA-TOBACCO NEVER USED [facility] Dec 15, 2008 02:38 PM LIFETIME NON-USER OF TOBACCO [facility] Apr 09, 2006 08:23 AM LIFETIME NON-TOBACCO USER [facility] Apr 19, 2005 09:02 AM LIFETIME NON-TOBACCO USER [facility] Jan 18, 2004 10:46 AM LIFETIME NON-TOBACCO USER [facility] Apr 05, 2003 09:06 AM LIFETIME NON-TOBACCO USER [facility] May 25, 2002 02:25 PM LIFETIME NON-TOBACCO USER [facility] Radiology Reports: +/- 30 days of the encounter Radiology Reports For cases when an order for radiology services may have been completed prior to the date of the Encounter, the report list includes the Radiology Reports that were completed up to 30 days before dateof the Encounter. For cases when an order for radiology services may have been completed after the date of the Encounter, the report list also includes the Radiology Reports that were completed up to30 days after date of the Encounter. The data comes from all [place] treatment facilities. Date/Time Radiology Report Provider Source Mar 24, 2024 11:[address] ABDOMEN PELVIS W/CONTRAST-P: CLARITA SIERRA [id number] [phone] M Exm Date: MAR 24, 2024@11:15 Req Phys: MARIBEL ARGUELLO Loc: PB-RAVEN PACT ECHO PCP (Req'g Lo Img Loc: PB-CT IMAGING Service: Unknown NANCY VIDES [facility] [place]EN [id number] (Case [id number] COMPLETE) CT ABDOMEN W&W/O CONT (CT Detailed) CPT:66508 Contrast Media : unspecified contrast media Non-ionic Iodinated Reason for Study: anemia elevated liver enzymes, blood in stools Clinical History: and PO contrast Report Status: Verified Date Reported: MAR 24, 2024 Date Verified: MAR 24, 2024 Hotel Controller E-Sig:/ES/ERIKA EAGLE Report: Contiguous axial images were obtained from above the diaphragm to the crests of the iliac wings following administration of oral contrast, but without IV contrast. Contiguous multiplanar images of the abdomen/pelvis were then obtained following intravenous administration of iodinated contrast. Today's study is compared to that of July 27, 2020. There are degenerative skeletal changes with multilevel disc and minimal scoliosis, with no appreciable acute osseous abnormality. There are atherosclerotic calcifications with no aortic aneurysm. There is no acute process referable to the visualized lower thorax. There is mild hepatic enlargement with no mass or evidence of intrahepatic biliary distention. The gallbladder and biliary tree are normal. The spleen is prominent, but without obvious mass or other focal abnormality. The adrenal glands and pancreas are normal. There is a 12 mm simple cortical left renal cyst. There is no solid renal mass or urinary tract stone. Both kidneys excrete contrast without evidence of hydronephrosis. The urinary bladder and prostate gland are normal. The appendix is normal. The bowel pattern is normal. There is a tiny periumbilical hernia containing fat, but no bowel. There is no appreciable retroperitoneal lymphadenopathy. There is mild abdominal ascites. Impression: 1. Chronic findings as noted 2. Mild hepatosplenomegaly 3. Mild ascites Is cirrhosis a clinical consideration? Primary Interpreting Staff: ERIKA EAGLE, RADIOLOGIST (Hotel Controller) /ERIKA Mccarthy [facility] Encounter Notes: All associated encounter notes This section contains the clinical notes associated to the Encounter. Date/Time Encounter Note(s) Provider Source Mar 24, 2024 12:26 PM ADDENDUM: LOCAL TITLE: Addendum STANDARD TITLE: ADDENDUM DATE OF NOTE: MAR 24, 2024@12:26:20 ENTRY DATE: MAR 24, 2024@12:26:21 AUTHOR: MARIBEL ARGUELLO COSIGNER: URGENCY: STATUS: COMPLETED CT scan was shows possible cirrhosis with hepatosplenomegaly and some ascites. I would like to get him in to see biostatistics teacher for further evaluation. /yane/ Maribel Arguello MD [facility] Signed: 03/24/2024 12:26 Receipt Acknowledged By: 04/02/2024 08:08 /yane/ Shelia Omalley RN,BSN [place], [place] --- Original Document --- 03/12/24 PRIMARY CARE CLINIC PROGRESS NOTE PB: SUBJECTIVE: CLARITA SIERRA is a 73 years old MALE. HPI: Presents to the clinic today for a periodic health maintenance visit. Last seen 2023. He reports increased weakness and SOB over the last few months. He has been bleeding form his internal hemorrhoids as well. He had a colonsocpcpy in 2021 with multiple adenomatous polyps. Non-VA Primary Care Provider None Specialty Services: Ophthalmology Dermatology, [place] FAMILY HX: Mother is , Alzheimer's age - 80s Father is , CVA age - 84 Sister- ? 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 DO NOT TAKE ANTACIDS OR CALCIUM SUPPLEMENTS WITHIN 2 HRS OF TAKING THIS MEDICATION. 3) EMPAGLIFLOZIN 25MG TAB TAKE ONE TABLET BY MOUTH ONCE ACTIVE (S) A DAY FOR DIABETES 4) FLUOROURACIL 5% CREAM APPLY THIN FILM TO AFFECTED ACTIVE AREA(S) TWICE A DAY FOR 3 WEEKS APPLY TO ARMS AND HANDS. EXPECT A RED, BEEFY RASH TO TREATED AREAS. AVOID SUN EXPOSURE. FOLLOW DIRECTIONS CAREFULLY FOR PROPER HANDLING/DISPOSAL. 5) HYDRALAZINE HCL 25MG TAB TAKE ONE TABLET BY MOUTH ACTIVE THREE TIMES A DAY NEEDED FOR BLOOD PRESSURE IF SBP IS GREATER THAN 140 6) HYDROCHLOROTHIAZIDE 25MG TAB TAKE ONE TABLET BY MOUTH ACTIVE ONCE A DAY FOR BLOOD PRESSURE 7) METFORMIN HCL 1000MG TAB TAKE ONE TABLET BY MOUTH ACTIVE TWICE A DAY WITH MEALS FOR BLOOD SUGAR CONTROL. TAKE WITH FOOD. AVOID ALCOHOL. DISCONTINUE BEFORE GETTING XRAY DYE. 8) PRAVASTATIN NA 40MG TAB TAKE ONE TABLET BY MOUTH ACTIVE EVERY EVENING FOR HIGH CHOLESTEROL Active Non-VA Medications Status 1) Non-VA FISH OIL 1000MG (500MG DHA/EPA) CAP 2000MG BY ACTIVE MOUTH TWICE A DAY 9 Total Medications Allergies: GEMFIBROZIL, LISINOPRIL, COLESTIPOL, SIMVASTATIN, PRAVASTATIN, LOVASTATIN NIACIN Review of Systems: as per HPI and Systemic: Denies fatigue, fever, chills, or weight loss CV: Denies chest pain, palpitations Pulmonary: Denies hemoptysis, Shortness of breath, dyspnea on exertion GI: Denies constipation, bloody stools, diarrhea, indigestion, or n/v Ext: Denies any swelling Neuro: Denies slurred speech or dizziness Skin: Denies abnormal lesions; denies any new rashes PSYCH: Denies SI/HI; denies nightmares OBJECTIVE: Vital Signs Temperature: 98.3 F [36.8 C] (03/12/2024 09:38) Respiratory Rate: 20 (03/12/2024 09:38) Pulse Rate: 67 (03/12/2024 09:38) Blood Pressure: 129/76 (03/12/2024 09:38) HT: 70.0 in [177.8 cm] (03/12/2024 09:38) WT: 227.9 lb [103.37 kg] (03/12/2024 09:38) BMI: 32.8 96% (03/12/2024 09:38) Physical Exam General: NAD noted, A&Ox3, pleasant, appears stated age HEENT: NCAT, TM's clear, nares and oropharynx clear Neck: Supple with normal active ROM, without any lymphadenopathy Heart: RRR, no murmur, clicks, or rub Resp: Lungs CTA bilaterally, respirations even and unlabored Ext: No clubbing, cyanosis, edema or obvious deformity Skin: Warm, pink, and dry, no rashes Neuro: Grossly intact Psych: Affect normal, answers questions appropriately throughout visit A/P: ASSESSMENT and PLAN Health Maintenance: Labs reviewed with patient and printout given to patient. Discussed preventative health to include diet and exercise as well as immunizations. Diabetes Type 2- controlled on glimepiride and metformin will add Jardiance. HTN -on atenolol, hydrochlorothiazide, losartan, amlodipine, and hydralazine 3 times a day if blood pressure greater than 140 Hyperlipidemia-we will try to start back on his review rosuvastatin let me know if he is having any issues with that and recheck his cholesterol level in 3 months Obesity - encouraged diet/exercise for weigh loss Fatty Liver-liver enzymes still elevated but stable Prostate Cancer - s/p treatment no longer in surveillance; denies any issues. 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 Will set up for an appoointment with Dr. Jamison again and a CT scan of the abdomen/pelvis. WIll recheck CBC ad BMP today. Exposure to potentially hazardous substance Stable. Discussed medications with patient; med rec completed. Continue current regimen as prescribed by PCP and specialists. RTC as needed if developing any new or worsening symptoms. Please notify PACT with medication changes or for orders coordination as needed if seen by a specialist in the future. Will f/u with patient once updated labs / imaging / testing received; otherwise f/u as listed below. Follow-up: 6 months with fasting labs prior to appointment and/or as needed. Discussed with patient that in the event of community imaging / testing being ordered in the future, once the imaging / testing has been completed, please notify PACT of completion at outside facility if not called with results within 1 week by a [facility] member; this is due to intermittent lapses in notification of imaging completion within [facility]. All questions answered; agrees to plan of care. Follow up as listed above, annually, and as needed. Keep all appointments. Medications Reconciled. See AVS given to [place]. Time spent 30 minutes. /yane/ Maribel Arguello MD [facility] Signed: 03/12/2024 10:28 03/15/2024 ADDENDUM STATUS: COMPLETED Notify patient his A1c is elevated at 7.7 I want him to drop off a blood glucose log with twice daily readings with daily fasting and alternating before and 2 hours after supper in the next 2 weeks. /gamal Arguello MD [facility] Signed: 03/15/2024 08:37 Receipt Acknowledged By: 03/16/2024 14:45 /yane/ MATTHEW ROWAN LPN [facility] 03/16/2024 ADDENDUM STATUS: COMPLETED Called and spoke with Veterans spouse regarding the following: Notify patient his A1c is elevated at 7.7 I want him to drop off a blood glucose log with twice daily readings with daily fasting and alternating before and 2 hours after supper in the next 2 weeks. /gamal Arguello MD [facility] Signed: 03/15/2024 08:37 [place] voiced understanding and will drop off log in 2 weeks. /gamal ROWAN LPN [facility] Signed: 03/16/2024 14:46 MARIBEL ARGUELLO [facility] Mar 15, 2024 08:37 AM PHYSICIAN LETTERS: LOCAL TITLE: TEST RESULT GENERAL LETTER STL STANDARD TITLE: PHYSICIAN LETTERS DATE OF NOTE: MAR 15, 2024@08:37 ENTRY DATE: MAR 15, 2024@08:37:50 AUTHOR: MARIBEL ARGUELLO EXP COSIGNER: URGENCY: STATUS: COMPLETED [facility] [address] [place] [address] Mar 15, 2024 Mr. Clarita Sierra [address] [place], [place] [address] Dear Mr. Sierra: This letter is to inform you regarding your recent laboratory tests. The ordering provider has reviewed these reports and will take necessary action, if needed. Date Lab Test Result H/L Unit Range 03/12/2024 eGFR 67 - 03/12/2024 SODIUM 137 mEq/L 136 - 145 03/12/2024 POTASSIUM 4.2 mEq/L 3.5 - 5 03/12/2024 CHLORIDE 104 mEq/L 98 - 107 03/12/2024 UREA NITROGEN 18 mg/dL 9 - 25 03/12/2024 CREATININE, SERUM 1.14 mg/dL 0.7 - 1.3 03/12/2024 CALCIUM, SERUM 9.2 mg/dL 8.4 - 10.4 03/12/2024 PROTEIN, TOTAL 7.3 g/dL 6 - 8.6 03/12/2024 ALBUMIN, SERUM 4.2 g/dL 3.4 - 5 03/12/2024 ALKALINE PHOSPHAT 130 U/L 40 - 150 03/12/2024 ALT (SGPT) 91 H U/L 8 - 40 03/12/2024 AST (SGOT) 70 H U/L 5 - 34 03/12/2024 BILIRUBIN, TOTAL 0.5 mg/dL 0.2 - 1.2 03/12/2024 CONJ. BILIRUBIN 0.2 mg/dL 0 - 0.5 03/12/2024 CO2 21 L mEq/L 22 - 31 03/12/2024 GLUCOSE 134 H mg/dL 72 - 99 03/12/2024 WBC 9.7 10*3/uL 3.6 - 11.2 03/12/2024 RBC 3.35 L 10*6/uL 4.10 - 5.70 03/12/2024 HEMOGLOBIN 9.8 L g/dL 13.1 - 16.8 03/12/2024 HEMATOCRIT 31.6 L % 38.2 - 48.4 03/12/2024 MCV 94.3 fL 80.0 - 100.0 03/12/2024 MCH 29.3 pg 27.0 - 34.0 03/12/2024 MCHC 31.0 L g/dL 33.0 - 36.0 03/12/2024 RDW 17.2 H % 11.8 - 15.1 03/12/2024 PLATELETS 221 10*3/uL 150 - 400 03/12/2024 MPV 10.9 fL 7.5 - 11.2 03/12/2024 NEUTROPHIL % 73.5 % - 03/12/2024 LYMPHOCYTE % 11.2 % - 03/12/2024 MONOCYTES, AUTO % 7.8 % - 03/12/2024 EO% 4.8 % - 03/12/2024 BASOPHILS, AUTO % 0.5 % - 03/12/2024 IG% 2.2 % - 03/12/2024 NEUT ABS 7.10 10*3/uL 2.10 - 8.00 03/12/2024 LYMPH ABS 1.08 10*3/uL 0.77 - 4.50 03/12/2024 MONO ABS 0.75 10*3/uL 0.19 - 0.8 03/12/2024 EO ABS 0.46 10*3/uL 0.00 - 0.60 03/12/2024 BASO ABS 0.05 10*3/uL 0.00 - 0.20 03/12/2024 IG ABS 0.21 H 10*3/uL 0.00 - 0.05 If you are seeing any outside provider(s), please share this information with him/her. If you have any questions, please feel free to contact our clinic. Your A1c is to elevated at 7.7. I need you to drop off a blood home glucose log for my review for medication adjustments. Sincerely, Maribel Arguello MD [facility] CLARITA SIERRA [facility] Mar 15, 2024 08:36 AM ADDENDUM: LOCAL TITLE: Addendum STANDARD TITLE: ADDENDUM DATE OF NOTE: MAR 15, 2024@08:36:04 ENTRY DATE: MAR 15, 2024@08:36:06 AUTHOR: MARIBEL ARGUELLO EXP COSIGNER: URGENCY: STATUS: COMPLETED Notify patient his A1c is elevated at 7.7 I want him to drop off a blood glucose log with twice daily readings with daily fasting and alternating before and 2 hours after supper in the next 2 weeks. /yane/ Maribel Arguello MD [facility] Signed: 03/15/2024 08:37 Receipt Acknowledged By: 03/16/2024 14:45 /yane/ MATTHEW ROWAN LPN [facility] [place] --- Original Document --- 03/12/24 PRIMARY CARE CLINIC PROGRESS NOTE PB: SUBJECTIVE: CLARITA SIERRA is a 73 years old MALE. HPI: Presents to the clinic today for a periodic health maintenance visit. Last seen 2023. He reports increased weakness and SOB over the last few months. He has been bleeding form his internal hemorrhoids as well. He had a colonsocpcpy in 2021 with multiple adenomatous polyps. Non-VA Primary Care Provider None Specialty Services: Ophthalmology Dermatology, [place] FAMILY HX: Mother is , Alzheimer's age - 80s Father is , CVA age - 84 Sister- ? 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 Problem List 1) HTN - Hypertension (SNOMED CT 20821132) 2) HLD - Hyperlipidemia (SNOMED CT 13757736) 3) Obesity (SNOMED CT 370513047) 4) Fatty liver 5) History of cancer of eye 6) Prostate Cancer (SCT 828031170) 7) Hearing loss 8) Diabetes Mellitus Type 2 (SCT 82927488) 9) Onychomycosis 10) Squamous cell carcinoma of skin of ear 11) Polyp Colon (SCT 05288841) 12) Exposure to potentially hazardous substance Active Outpatient Medications (including Supplies): Active Outpatient Medications Status 1) AMLODIPINE BESYLATE 10MG TAB TAKE ONE TABLET BY MOUTH ACTIVE ONCE A DAY TO LOWER BLOOD PRESSURE 2) ATENOLOL 100MG TAB TAKE ONE TABLET BY MOUTH ONCE A ACTIVE DAY FOR HEART OR TO CONTROL BLOOD PRESSURE. DO NOT TAKE ANTACIDS OR CALCIUM SUPPLEMENTS WITHIN 2 HRS OF TAKING THIS MEDICATION. 3) EMPAGLIFLOZIN 25MG TAB TAKE ONE TABLET BY MOUTH ONCE ACTIVE (S) A DAY FOR DIABETES 4) FLUOROURACIL 5% CREAM APPLY THIN FILM TO AFFECTED ACTIVE AREA(S) TWICE A DAY FOR 3 WEEKS APPLY TO ARMS AND HANDS. EXPECT A RED, BEEFY RASH TO TREATED AREAS. AVOID SUN EXPOSURE. FOLLOW DIRECTIONS CAREFULLY FOR PROPER HANDLING/DISPOSAL. 5) HYDRALAZINE HCL 25MG TAB TAKE ONE TABLET BY MOUTH ACTIVE THREE TIMES A DAY NEEDED FOR BLOOD PRESSURE IF SBP IS GREATER THAN 140 6) HYDROCHLOROTHIAZIDE 25MG TAB TAKE ONE TABLET BY MOUTH ACTIVE ONCE A DAY FOR BLOOD PRESSURE 7) METFORMIN HCL 1000MG TAB TAKE ONE TABLET BY MOUTH ACTIVE TWICE A DAY WITH MEALS FOR BLOOD SUGAR CONTROL. TAKE WITH FOOD. AVOID ALCOHOL. DISCONTINUE BEFORE GETTING XRAY DYE. 8) PRAVASTATIN NA 40MG TAB TAKE ONE TABLET BY MOUTH ACTIVE EVERY EVENING FOR HIGH CHOLESTEROL Active Non-VA Medications Status 1) Non-VA FISH OIL 1000MG (500MG DHA/EPA) CAP 2000MG BY ACTIVE MOUTH TWICE A DAY 9 Total Medications Allergies: GEMFIBROZIL, LISINOPRIL, COLESTIPOL, SIMVASTATIN, PRAVASTATIN, LOVASTATIN NIACIN Review of Systems: as per HPI and Systemic: Denies fatigue, fever, chills, or weight loss CV: Denies chest pain, palpitations Pulmonary: Denies hemoptysis, Shortness of breath, dyspnea on exertion GI: Denies constipation, bloody stools, diarrhea, indigestion, or n/v Ext: Denies any swelling Neuro: Denies slurred speech or dizziness Skin: Denies abnormal lesions; denies any new rashes PSYCH: Denies SI/HI; denies nightmares OBJECTIVE: Vital Signs Temperature: 98.3 F [36.8 C] (03/12/2024 09:38) Respiratory Rate: 20 (03/12/2024 09:38) Pulse Rate: 67 (03/12/2024 09:38) Blood Pressure: 129/76 (03/12/2024 09:38) HT: 70.0 in [177.8 cm] (03/12/2024 09:38) WT: 227.9 lb [103.37 kg] (03/12/2024 09:38) BMI: 32.8 96% (03/12/2024 09:38) Physical Exam General: NAD noted, A&Ox3, pleasant, appears stated age HEENT: NCAT, TM's clear, nares and oropharynx clear Neck: Supple with normal active ROM, without any lymphadenopathy Heart: RRR, no murmur, clicks, or rub Resp: Lungs CTA bilaterally, respirations even and unlabored Ext: No clubbing, cyanosis, edema or obvious deformity Skin: Warm, pink, and dry, no rashes Neuro: Grossly intact Psych: Affect normal, answers questions appropriately throughout visit A/P: ASSESSMENT and PLAN Health Maintenance: Labs reviewed with patient and printout given to patient. Discussed preventative health to include diet and exercise as well as immunizations. Diabetes Type 2- controlled on glimepiride and metformin will add Jardiance. HTN -on atenolol, hydrochlorothiazide, losartan, amlodipine, and hydralazine 3 times a day if blood pressure greater than 140 Hyperlipidemia-we will try to start back on his review rosuvastatin let me know if he is having any issues with that and recheck his cholesterol level in 3 months Obesity - encouraged diet/exercise for weigh loss Fatty Liver-liver enzymes still elevated but stable Prostate Cancer - s/p treatment no longer in surveillance; denies any issues. 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 Will set up for an appoointment with Dr. Jamison again and a CT scan of the abdomen/pelvis. WIll recheck CBC ad BMP today. Exposure to potentially hazardous substance Stable. Discussed medications with patient; med rec completed. Continue current regimen as prescribed by PCP and specialists. RTC as needed if developing any new or worsening symptoms. Please notify PACT with medication changes or for orders coordination as needed if seen by a specialist in the future. Will f/u with patient once updated labs / imaging / testing received; otherwise f/u as listed below. Follow-up: 6 months with fasting labs prior to appointment and/or as needed. Discussed with patient that in the event of community imaging / testing being ordered in the future, once the imaging / testing has been completed, please notify PACT of completion at outside facility if not called with results within 1 week by a [facility] PACT member; this is due to intermittent lapses in notification of imaging completion within CPRS. All questions answered; agrees to plan of care. Follow up as listed above, annually, and as needed. Keep all appointments. Medications Reconciled. See AVS given to [place]. Time spent 30 minutes. /yane/ Maribel Arguello MD [facility] Signed: 03/12/2024 10:28 03/16/2024 ADDENDUM STATUS: UNSIGNED You may not VIEW this UNSIGNED Addendum. MARIBEL ARGUELLO [place] Mar 12, 2024 09:44 AM PRIMARY CARE PROGRESS NOTE: LOCAL TITLE: PRIMARY CARE CLINIC PROGRESS NOTE PB STANDARD TITLE: PRIMARY CARE PROGRESS NOTE DATE OF NOTE: MAR 12, 2024@09:44 ENTRY DATE: MAR 12, 2024@09:44:53 AUTHOR: MARIBEL ARGUELLO EXP COSIGNER: URGENCY: STATUS: COMPLETED PRIMARY CARE CLINIC PROGRESS NOTE PB Has ADDENDA SUBJECTIVE: CLARITA SIERRA is a 73 years old MALE. HPI: Presents to the clinic today for a periodic health maintenance visit. Last seen 2023. He reports increased weakness and SOB over the last few months. He has been bleeding form his internal hemorrhoids as well. He had a colonsocpcpy in 2021 with multiple adenomatous polyps. Non-VA Primary Care Provider None Specialty Services: Ophthalmology Dermatology, [facility] FAMILY HX: Mother is , Alzheimer's age - 80s Father is , CVA age - 84 Sister- ? 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 Problem List 1) HTN - Hypertension (SNOMED CT 56168675) 2) HLD - Hyperlipidemia (SNOMED CT 11564329) 3) Obesity (SNOMED CT 527175431) 4) Fatty liver 5) History of cancer of eye 6) Prostate Cancer (SCT 185016806) 7) Hearing loss 8) Diabetes Mellitus Type 2 (SCT 27230780) 9) Onychomycosis 10) Squamous cell carcinoma of skin of ear 11) Polyp Colon (SCT 22568185) 12) Exposure to potentially hazardous substance Active Outpatient Medications (including Supplies): Active Outpatient Medications Status 1) AMLODIPINE BESYLATE 10MG TAB TAKE ONE TABLET BY MOUTH ACTIVE ONCE A DAY TO LOWER BLOOD PRESSURE 2) ATENOLOL 100MG TAB TAKE ONE TABLET BY MOUTH ONCE A ACTIVE DAY FOR HEART OR TO CONTROL BLOOD PRESSURE. DO NOT TAKE ANTACIDS OR CALCIUM SUPPLEMENTS WITHIN 2 HRS OF TAKING THIS MEDICATION. 3) EMPAGLIFLOZIN 25MG TAB TAKE ONE TABLET BY MOUTH ONCE ACTIVE (S) A DAY FOR DIABETES 4) FLUOROURACIL 5% CREAM APPLY THIN FILM TO AFFECTED ACTIVE AREA(S) TWICE A DAY FOR 3 WEEKS APPLY TO ARMS AND HANDS. EXPECT A RED, BEEFY RASH TO TREATED AREAS. AVOID SUN EXPOSURE. FOLLOW DIRECTIONS CAREFULLY FOR PROPER HANDLING/DISPOSAL. 5) HYDRALAZINE HCL 25MG TAB TAKE ONE TABLET BY MOUTH ACTIVE THREE TIMES A DAY NEEDED FOR BLOOD PRESSURE IF SBP IS GREATER THAN 140 6) HYDROCHLOROTHIAZIDE 25MG TAB TAKE ONE TABLET BY MOUTH ACTIVE ONCE A DAY FOR BLOOD PRESSURE 7) METFORMIN HCL 1000MG TAB TAKE ONE TABLET BY MOUTH ACTIVE TWICE A DAY WITH MEALS FOR BLOOD SUGAR CONTROL. TAKE WITH FOOD. AVOID ALCOHOL. DISCONTINUE BEFORE GETTING XRAY DYE. 8) PRAVASTATIN NA 40MG TAB TAKE ONE TABLET BY MOUTH ACTIVE EVERY EVENING FOR HIGH CHOLESTEROL Active Non-VA Medications Status 1) Non-VA FISH OIL 1000MG (500MG DHA/EPA) CAP 2000MG BY ACTIVE MOUTH TWICE A DAY 9 Total Medications Allergies: GEMFIBROZIL, LISINOPRIL, COLESTIPOL, SIMVASTATIN, PRAVASTATIN, LOVASTATIN NIACIN Review of Systems: as per HPI and Systemic: Denies fatigue, fever, chills, or weight loss CV: Denies chest pain, palpitations Pulmonary: Denies hemoptysis, Shortness of breath, dyspnea on exertion GI: Denies constipation, bloody stools, diarrhea, indigestion, or n/v Ext: Denies any swelling Neuro: Denies slurred speech or dizziness Skin: Denies abnormal lesions; denies any new rashes PSYCH: Denies SI/HI; denies nightmares OBJECTIVE: Vital Signs Temperature: 98.3 F [36.8 C] (03/12/2024 09:38) Respiratory Rate: 20 (03/12/2024 09:38) Pulse Rate: 67 (03/12/2024 09:38) Blood Pressure: 129/76 (03/12/2024 09:38) HT: 70.0 in [177.8 cm] (03/12/2024 09:38) WT: 227.9 lb [103.37 kg] (03/12/2024 09:38) BMI: 32.8 96% (03/12/2024 09:38) Physical Exam General: NAD noted, A&Ox3, pleasant, appears stated age HEENT: NCAT, TM's clear, nares and oropharynx clear Neck: Supple with normal active ROM, without any lymphadenopathy Heart: RRR, no murmur, clicks, or rub Resp: Lungs CTA bilaterally, respirations even and unlabored Ext: No clubbing, cyanosis, edema or obvious deformity Skin: Warm, pink, and dry, no rashes Neuro: Grossly intact Psych: Affect normal, answers questions appropriately throughout visit A/P: ASSESSMENT and PLAN Health Maintenance: Labs reviewed with patient and printout given to patient. Discussed preventative health to include diet and exercise as well as immunizations. Diabetes Type 2- controlled on glimepiride and metformin will add Jardiance. HTN -on atenolol, hydrochlorothiazide, losartan, amlodipine, and hydralazine 3 times a day if blood pressure greater than 140 Hyperlipidemia-we will try to start back on his review rosuvastatin let me know if he is having any issues with that and recheck his cholesterol level in 3 months Obesity - encouraged diet/exercise for weigh loss Fatty Liver-liver enzymes still elevated but stable Prostate Cancer - s/p treatment no longer in surveillance; denies any issues. 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 Will set up for an appoointment with Dr. Jamison again and a CT scan of the abdomen/pelvis. WIll recheck CBC ad BMP today. Exposure to potentially hazardous substance Stable. Discussed medications with patient; med rec completed. Continue current regimen as prescribed by PCP and specialists. RTC as needed if developing any new or worsening symptoms. Please notify PACT with medication changes or for orders coordination as needed if seen by a specialist in the future. Will f/u with patient once updated labs / imaging / testing received; otherwise f/u as listed below. Follow-up: 6 months with fasting labs prior to appointment and/or as needed. Discussed with patient that in the event of community imaging / testing being ordered in the future, once the imaging / testing has been completed, please notify PACT of completion at outside facility if not called with results within 1 week by a [facility] PACT member; this is due to intermittent lapses in notification of imaging completion within CPRS. All questions answered; agrees to plan of care. Follow up as listed above, annually, and as needed. Keep all appointments. Medications Reconciled. See AVS given to [place]. Time spent 30 minutes. /yane/ Maribel Arguello MD [facility] Signed: 03/12/2024 10:28 03/15/2024 ADDENDUM STATUS: COMPLETED Notify patient his A1c is elevated at 7.7 I want him to drop off a blood glucose log with twice daily readings with daily fasting and alternating before and 2 hours after supper in the next 2 weeks. /gamal Arguello MD [facility] Signed: 03/15/2024 08:37 Receipt Acknowledged By: 03/16/2024 14:45 /yane/ MATTHEW ROWAN LPN [facility] 03/16/2024 ADDENDUM STATUS: COMPLETED Called and spoke with Veterans spouse regarding the following: Notify patient his A1c is elevated at 7.7 I want him to drop off a blood glucose log with twice daily readings with daily fasting and alternating before and 2 hours after supper in the next 2 weeks. /gamal Arguello MD [facility] Signed: 03/15/2024 08:37 voiced understanding and will drop off log in 2 weeks. /gamal ROWAN DIRECTOR [employer] [facility] Signed: 03/16/2024 14:46 03/24/2024 ADDENDUM STATUS: COMPLETED CT scan was shows possible cirrhosis with hepatosplenomegaly and some ascites. I would like to get him in to see biostatistics teacher for further evaluation. /gamal Arguello MD [facility] Signed: 03/24/2024 12:26 Receipt Acknowledged By: 04/02/2024 08:08 /yane/ Shelia Omalley RN,BSN [facility] 09/01/2024 ADDENDUM STATUS: COMPLETED Diagnostic Colonoscopy - L,N,P,PH: (+) FIT/FOBT identified. A diagnostic Colonoscopy is due based on information available to this reminder. A colonoscopy is currently scheduled or in process of being scheduled. Comment: BAKARI MERCER A PHYSICAIN MGMT /es/ Nayeli [place] DIRECTOR [employer] [facility] Signed: 09/01/2024 11:17 MARIBEL ARGUELLO [facility] Mar 12, 2024 09:26 AM PRIMARY CARE NURSING NOTE: LOCAL TITLE: PRIMARY CARE NURSING PROGRESS NOTE (TEXT) NURSING P STANDARD TITLE: PRIMARY CARE NURSING NOTE DATE OF NOTE: MAR 12, 2024@09:26 ENTRY DATE: MAR 12, 2024@09:27:05 AUTHOR: MATTHEW ROWAN COSIGNER: URGENCY: STATUS: COMPLETED Established Patient CLARITA SIERRA IS A 73 YEAR OLD MALE BEING SEEN IN CLINIC MAR 12, 2024. REASON FOR VISIT: here for 6 month follow up, c/o weaknes and SOB- bleeding hemorrhoids and lower abd pain since September 2023. Are you receiving care any where other than the [place]? No HEALTH AND SURGICAL HISTORY: Does patient report using home oxygen? No CURRENT ACTIVE MEDICATIONS FOR REVIEW: Allergies/ADRs (Tool #5) FACILITY ALLERGY/ADR -------- No Remote Allergy/ADR Data available for this patient [facility] COLESTIPOL [facility] GEMFIBROZIL [facility] LISINOPRIL [facility] LOVASTATIN [facility] NIACIN [facility] PRAVASTATIN [facility] SIMVASTATIN Med. Reconciliation (Tool #1) INCLUDED IN THIS LIST: Alphabetical list of active outpatient prescriptions dispensed from this [place] (local) and dispensed from another [place] or [facility] facility (remote) as well as inpatient orders (local pending and active), local clinic medications, locally documented non-VA medications, and local prescriptions that have or been discontinued in the past 90 days. Non-VA Meds Last Documented On: Jan 04, 2015 NOTE The display of VA prescriptions dispensed from another [place] or [facility] facility (remote) is limited to active outpatient prescription entries matched to National Drug File at the originating site and may not include some items such as investigational drugs, compounds, etc. NOT INCLUDED IN THIS LIST: Medications self-entered by the patient into personal health records (i.e. [employer]) are NOT included in this list. Non-VA medications documented outside this [place], remote inpatient orders (regardless of status) and remote clinic medications are NOT included in this list. The patient and provider must always discuss medications the patient is taking, regardless of where the medication was dispensed or obtained. OUTPT AMLODIPINE BESYLATE 10MG TAB (Status = Active) TAKE ONE TABLET BY MOUTH ONCE A DAY TO LOWER BLOOD PRESSURE Rx# [id number] Last Released: 02/26/24 Qty/Days Supply: Rx Expiration Date: 08/26/24 Refills Remainin OUTPT ATENOLOL 100MG TAB (Status = Active) TAKE ONE TABLET BY MOUTH ONCE A DAY FOR HEART OR TO CONTROL BLOOD PRESSURE. DO NOT TAKE ANTACIDS OR CALCIUM SUPPLEMENTS WITHIN 2 HRS OF TAKING THIS MEDICATION. Rx# [id number] Last Released: 01/17/24 Qty/Days Supply: Rx Expiration Date: 09/16/24 Refills Remainin OUTPT EMPAGLIFLOZIN 25MG TAB (Status = Discontinued) TAKE ONE-HALF TABLET BY MOUTH ONCE A DAY FOR DIABETES Rx# [id number] Last Released: 11/25/23 Qty/Days Supply: 45/ Rx Expiration Date: 09/16/24 Refills Remainin Indication: FOR DIABETES OUTPT EMPAGLIFLOZIN 25MG TAB (Status = Active/Suspended) TAKE ONE TABLET BY MOUTH ONCE A DAY FOR DIABETES Rx# [id number] Last Released: 02/19/24 Qty/Days Supply: 90/ Rx Expiration Date: 02/17/25 Refills Remainin Indication: FOR DIABETES Non-VA FISH OIL 1000MG (500MG DHA/EPA) CAP TAKE 2 CAPSULES BY MOUTH TWICE A DAY Non-VA medication not recommended by VA provider. OUTPT FLUOROURACIL 5% CREAM (Status = Active) APPLY THIN FILM TO AFFECTED AREA(S) TWICE A DAY FOR 3 WEEKS APPLY TO ARMS AND HANDS. EXPECT A RED, BEEFY RASH TO TREATED AREAS. AVOID SUN EXPOSURE. FOLLOW DIRECTIONS CAREFULLY FOR PROPER HANDLING/DISPOSAL. Rx# [id number] Last Released: 12/19/23 Qty/Days Supply: 40/30 Rx Expiration Date: 11/18/24 Refills Remainin OUTPT HYDRALAZINE HCL 25MG TAB (Status = Active) TAKE ONE TABLET BY MOUTH THREE TIMES A DAY NEEDED FOR BLOOD PRESSURE IF SBP IS GREATER THAN 140 Rx# [id number] Last Released: 12/10/23 Qty/Days Supply: 270/90 Rx Expiration Date: 12/08/24 Refills Remainin Indication: FOR HIGH BLOOD PRESSURE OUTPT HYDROCHLOROTHIAZIDE 25MG TAB (Status = Active) TAKE ONE TABLET BY MOUTH ONCE A DAY FOR BLOOD PRESSURE Rx# [id number] Last Released: 01/02/24 Qty/Days Supply: 90/ Rx Expiration Date: 09/16/24 Refills Remainin OUTPT LOSARTAN 100MG TAB (Status = ) TAKE ONE TABLET BY MOUTH AT NOON TO LOWER BLOOD PRESSURE Rx# [id number] Last Released: 07/03/23 Qty/Days Supply: 90/ Rx Expiration Date: 01/22/24 Refills Remainin OUTPT METFORMIN HCL 1000MG TAB (Status = Active) TAKE ONE TABLET BY MOUTH TWICE A DAY WITH MEALS FOR BLOOD SUGAR CONTROL. TAKE WITH FOOD. AVOID ALCOHOL. DISCONTINUE BEFORE GETTING XRAY DYE. Rx# [id number] Last Released: 02/10/24 Qty/Days Supply: 180/90 Rx Expiration Date: 03/20/24 Refills Remainin OUTPT PRAVASTATIN NA 40MG TAB (Status = Active) TAKE ONE TABLET BY MOUTH EVERY EVENING FOR HIGH CHOLESTEROL Rx# [id number] Last Released: 10/17/23 Qty/Days Supply: Rx Expiration Date: 09/16/24 Refills Remainin Indication: FOR HIGH CHOLESTEROL SUPPLIES PHARMACY TERMS AND POSSIBLE PATIENT ACTIONS INPT = [place] inpatient order IV = [place] intravenous medication OUTPT = [place] outpatient prescription PHARMACY POSSIBLE PATIENT TERMS EXPLANATION ACTIONS -------- -- ACTIVE A prescription that can be If you have refills, filled at the local [place] pharmacy. you may request a refill of this prescription from your [place] pharmacy. CLINIC A medication you received during If you have questions a visit to a [place] clinic or about this medication emergency department. contact your [place] healthcare team. DISCONTINUED A prescription your provider has Contact your [facility] stopped. It is no longer healthcare team if you available to be sent to you or need more of this picked up at the [place] pharmacy medication. window. A prescription which is too old Contact your VA to fill. This does not refer to healthcare team if you the expiration date of the need more of this medication in the container. medication. NON-VA A medication that came from If this medication someplace other than a VA information is pharmacy. This may be a incorrect or out of prescription from either the VA date, please tell your or non VA providers that was VA healthcare team. filled outside the VA. Or, it may be an [id number] (OTC), herbal, dietary supplements or sample medication. ON HOLD An active prescription that will Contact your [facility] not be filled until pharmacy pharmacy when you need resolves the issue. more of this medication. PARKED An active prescription that will Contact your [facility] not be filled until the patient pharmacy when you need requests it. this medication. PENDING This prescription order has been If you have been sent to the pharmacy for review instructed to start and is not ready yet. this medication now, contact your [facility] pharmacy. SUSPENDED An active prescription that is Contact your [place] not scheduled to be filled yet. pharmacy if you need You should receive it before this medication now. you run out. ====== Patient reports taking medications as ordered. IS PATIENT TAKING ANY OVER THE COUNTER MEDICATIONS, SUCH VITAMINS OR HERBAL SUPPLEMENTS, INCLUDING ANY MEDICATIONS PRESCRIBED BY ANOTHER PHYSICIAN? Yes, List: iron and 325 mg aspirin ALLERGIES/ADVERSE REACTIONS: GEMFIBROZIL, LISINOPRIL, COLESTIPOL, SIMVASTATIN, PRAVASTATIN, LOVASTATIN NIACIN Does patient have any new allergies to report since last visit? NO VITALS: TEMPERATURE: 97.6 F [36.4 C] (09/16/2023 09:06) BP: 128/70 (09/16/2023 09:49) RESP: 18 (09/16/2023 09:06) PULSE: 65 (09/16/2023 09:06) HT: 70 in [177.8 cm] (09/16/2023 09:06) WT: 229.1 lb [103.92 kg] (09/16/2023 09:06) BMI: 32.9 PAIN ASSESSMENT: (Most Recent Pain Score in Vitals Package: 0 (09/16/2023 09:06) ) The patient indicated that they and their close contacts have not traveled outside of the [place] in the past 21 days. The patient reports the following symptoms: No symptoms present The patient is not immunocompromised. The patient does not report having a history of Multi Drug Resistant Organism (MDRO) within the last five years. The patient does not report having been exposed to measles, chickenpox, or zoster in last 30 days. STRESS: Thank you for your service. Now let us serve you. At the [facility], we strive to provide you with exceptional health care that improves your health and well-being. Are you feeling sad, empty, or depressed? No Do you need to talk about things in your life that worry you or cause you stress? No Do you need to talk about personal problems, family problems, alcohol use, drug use, or mental or emotional illness? No SUICIDE SCREENING: The patient was asked, Over the past two weeks, how often have you been bothered by thoughts that you would be better off or of hurting yourself in some way? Not At All SPIRITUAL ASSESSMENT: Are there rastafari practices or spiritual concerns you want the caramel maker, your physician, and other health care team members to immediately know about? No Patient advised to call the clinic for any concerns, questions, or symptoms. Patient and/or caregiver verbalized understanding of plan of care. RHS Screen: RHS Screen Environmental Check Screening was not completed at this time due to: Another adult present Alcohol Use Screen (AUDIT-C): Alcohol Screen: SCREEN FOR ALCOHOL (AUDIT-C) An alcohol screening test (AUDIT-C) was negative (score=0). 1. How often did you have a drink containing alcohol in the past year? Consider a drink to be a 12 ounce can or bottle of regular beer, 8 ounces of malt liquor, a 5 ounce glass of table wine, or a 1.5 ounce shot of liquor (like scotch, gin, or vodka). Never 2. How many drinks containing alcohol did you have on a typical day when you were drinking in the past year? Response not required due to responses to other questions. 3. How often did you have six or more drinks on one occasion in the past year? Response not required due to responses to other questions. Depression Screening: Perform PHQ-2 A PHQ-2 screen was performed. The score was 3 which is a positive screen for depression. Over the past two weeks, how often have you been bothered by the following problems? 1. Little interest or pleasure in doing things Nearly every day 2. Feeling down, depressed, or hopeless Not at all Licensed Independent Provider notified of positive screen and need for follow-up. Name of provider notified: Dr Arguello Tobacco Use Screening: The patient has never used tobacco. Advanced Directive Screen/Treasury Specialist: ADVANCE DIRECTIVE SCREENING: I asked if the patient has an advance directive, and determined that: Patient does not have an Advance Directive. Patient was given form to update and return when completed. ADVANCE DIRECTIVE NOTIFICATION I provided the patient with written notification about advance directives. Level of understanding: Pneumococcal Conjugate Vaccine (PCV15/PCV20): Refuses PCV vaccine Immunization: PNEUMOCOCCAL CONJUGATE, UNSPECIFIED FORMULATION Refusal Reason: PATIENT DECISION Patient refuses all immunization(s) in the PneumoPCV group Date Documented: 03/12/24 09:43 Pain Assessment: - PAIN ASSESSMENT: .. Patient is reporting some pain. PAIN SCORE TODAY: 3 Patient's self identified pain goal: 0 Weight Control/Nutrition Counseling: * The patient received the following counseling at this encounter: PC [facility] - PHP MAP: PERSONAL HEALTH PLAN INVENTORY & MAP [place]'s Response: granddasharmin /yane/ JAIME PACHECO NAPLESSavi CB Signed: 03/12/2024 09:44 MATTHEW ROWAN [facility]
--- OUTSIDE RECORDS SUMMARY | 2024-05-19 04:30 | XMS_ITS | Encounter Summary ---
Author Name [facility] ([place] Organization [facility] [place] Address [address] [place] [id number] Care Team Providers Care Measurement Coordinator Name Role Phone ALBINO ARGUELLO Primary Care Provider Unavailabl e Insurance [...] PART A May 07, 2014 PART A [id number] [id number] CLARITA SIERRA PATIENT MEDICARE (WNR) MEDICARE (M) PART A May 07, 2014 PART A [id number] CLARITA SIERRA PATIENT Selected Encounter This section includes the information on record at [place] for the Encounter. Date/Time Encounter Type Encounter Description Reason Provider Source May 19, 2024 09:30 AM COMPRE OPH EXAM NEW PT 1/> OPTOMETRY ICD-10-CM H04.123 Dry eye syndrome of bilateral lacrimal glands CHARLES VELAZQUEZ Encounter Template Text not used by [facility] Assessments - Encounter Diagnoses This section includes the primary and secondary diagnoses documented for the Encounter. Date/Time Primary/Secondary Diagnosis Diagnosis Name Provider Source May 19, 2024 10:27 AM PRIMARY Dry eye syndrome of bilateral lacrimal glands CHARLES VEL[facility]QUEZAR [facility] May 19, 2024 10:27 AM SECONDARY Presbyopia CHARLES VELAZQUEZ [facility] May 19, 2024 10:27 AM SECONDARY Presence of intraocular lens CHARLES VELAZQUEZ [facility] May 19, 2024 10:27 AM SECONDARY Type 2 diabetes mellitus without complications CHARLES VELAZQUEZ [facility] Plan of Treatment: Future Appointments (+ 6 months) and Future Tests (+/- 45 days) The Plan of Treatment section includes future care activities for the patient from all [place] [facility]. This section includes future appointments and future orders which are active, pending or scheduled. Future Appointments This section includes appointments that were scheduled to occur 6 months from the date of the Encounter, up to a maximum of 20 appointments. The data comes from all [place] treatment facilities. Appointment Date/Time Appointment Type Appointme nt Facility Name Jun 22, 2024 08:45 AM [facility]ORY - [facility] Aug 04, 2024 10:00 AM [facility] Sep 03, 2024 08:40 AM AMBULATORY - MEDICINE [facility] Sep 10, 2024 09:00 AM AMBULATORY - MEDICINE [facility] Oct 05, 2024 09:00 AM AMBULATORY - NONE [facility] Nov 03, 2024 12:30 PM AMB[facility]ORY - [facility]IC[facility] November 11, 2024 09:20 AM [facility] November 16, 2024 11:30 AM [facility] Encounter Notes: All associated encounter notes This section contains the clinical notes associated to the Encounter. Date/Time Encounter Note(s) Provider Source May 19, 2024 03:12 PM OPTOMETRY CONSULT: LOCAL TITLE: OPTOMETRY CONSULTS PB STANDARD TITLE: OPTOMETRY CONSULT DATE OF NOTE: MAY 19, 2024@15:12 ENTRY DATE: MAY 19, 2024@15:12:23 AUTHOR: CHARLES VELAZQUEZ EXP COSIGNER: URGENCY: STATUS: COMPLETED Macular OCT today to r/o any abnormalities (20/40 bcva today) OCT Mac: MANAGER DIGITAL: 249. MANAGER DIGITAL: 254. Appears normal, no edema or cnvm No visually significant changes seen in macular area today /yane/ CHARLES VELAZQUEZ CERTIFIED MASTER SAFECRACKER Signed: 05/19/2024 15:14 [facility]ELAZQUEZ [facility] May 19, 2024 03:11 PM OPTOMETRY CONSULT: LOCAL TITLE: OPTOMETRY CONSULTS PB STANDARD TITLE: OPTOMETRY CONSULT DATE OF NOTE: MAY 19, 2024@15:11 ENTRY DATE: MAY 19, 2024@15:11:25 AUTHOR: CHARLES VELAZQUEZ EXP COSIGNER: URGENCY: STATUS: COMPLETED Retinal photos b/c pt has BCVA 20/40 od & os -Vit clear ou -C/D 0.1 od, 0.2 os, sloping rims ou -Maculae appear normal w/ no printing press machine operator or csme ou -Vessels normal ou -Retina at posterior pole w/ mild scattered pigment ou -Periphery flat without breaks ou Monitor /yane/ CHARLES VELAZQUEZ CERTIFIED MASTER SAFECRACKER Signed: 05/19/2024 15:12 [facility] May 19, 2024 09:45 AM OPHTHALMOLOGY E & M NOTE: LOCAL TITLE: OPHTHALMIC EXAM PB STANDARD TITLE: OPHTHALMOLOGY E & M NOTE DATE OF NOTE: MAY 19, 2024@09:45 ENTRY DATE: MAY 19, 2024@09:45:45 AUTHOR: SANAZ HERNÁNDEZ EXP COSIGNER: URGENCY: STATUS: COMPLETED Oct(mac) & Photos obtained today ou /es/ SANAZ Gonzalez [employer] Signed: 05/19/2024 09:46 SANAZ HERNÁNDEZ [facility] May 19, 2024 09:31 AM OPHTHALMOLOGY E & M NOTE: LOCAL TITLE: OPHTHALMIC EXAM PB STANDARD TITLE: OPHTHALMOLOGY E & M NOTE DATE OF NOTE: MAY 19, 2024@09:31 ENTRY DATE: MAY 19, 2024@09:31:10 AUTHOR: CHARLES VELAZQUEZ EXP COSIGNER: URGENCY: STATUS: COMPLETED CHIEF COMPLAINT: Blur at NV and DV. Pt said that he has a hard when trying to read. Pt also said that he has a really hard time with night driving. Pt current glasses are before his surgey. Last eye exam: Pt said that he was seen sometime after his surgey by Dr. Vo. Surgery: Cataracts Removed OU by Dr. Vo. Pt does not know when. Eye medications: None. Lab: Hgb A1C: HGA1C 7.7 H % 02/13/2024 08:05 Diabetic: NIDDM Type 2 since 2013 ALLERGIES: GEMFIBROZIL, LISINOPRIL, COLESTIPOL, SIMVASTATIN, PRAVASTATIN, LOVASTATIN NIACIN VISUAL ACUITY OD: 20/30-0 ph: 25-0 OS: 20/20-0 ph: Blur Without correction pupils rapd - Dilated with 1% Tropicamide @ 9:23. Ed pt on se of DFE. Post sun sheild provided. Pt voiced understanding. AUTO REFRACTION OD:plano -1.00 X 030 OS:-0.25 -0.25 X 007 Tonometry [facility]are Reading -OD 14 -OS 14 (COPIED TECH NOTE ABOVE-AGREE W/ FINDINGS, CONTINUE DOCTOR NOTE BELOW) -SUBJECTIVE- 73M here for eye exam and new glasses. He is new to this provider. Patient presents with concerns as stated above, says he saw well after cataract surgery & through the 1st year, but says that he can't see well now, eyes are constantly watering. OHx: NOLAN 12/2017 through community consult (post-op exam). Last teleretinal exam 12/2020 here, last optom exam here 08/2017 when he was sent for cataract consult. Habitual SRx is from then. Patient reports no history of eye injury. He is s/p CE w/ PCIOL 11/2017 od & 10/2017 os through community consult. MHx: +Type 2 DM (Dx'd 2013). see allergies above. -OBJECTIVE- Pupils as above EOMs FROM CVF FTFW CT ORTHO REFRACTION plano -1.25 x 035 20/40 fuzzy -0.50 -0.25 x 150 20/40 fuzzy Add: +2.50 SLEx -Adnexa brow ptosis ou -L/L significant sup dermatochalasis (over lashes) ou -Conj mild diffuse hyperemia ou -Cornea arcus, sm round scar w/ ~1mm temp pterygium od, thin tear film w/ immediate TBUT & moderate mucous strands in tears ou -Irises intact, no nvi ou -A/C quiet ou -Lens pciol appears centered & clear ou DFE (w/ 90D & 20D Lens) -Vit clear ou -C/D 0.1 od, 0.2 os, sloping rims ou -Maculae appear normal w/ no printing press machine operator or csme ou -Vessels normal ou -Retina at posterior pole w/ mild scattered pigment ou -Periphery flat without breaks ou -ASSESSMENT/PLAN- 1 A) Dry eyes ou P) Discussed w/ patient. Handout given on dry eyes w/ instructions. Listed medication information on sheet: 1) Use FML qid x 2 weeks, tid x 1 week, then bid until next appt 2) Use systane balance tears 3-5 minutes after FML 2 A) Type 2 diabetes x 10 years. No diabetic retinopathy ou P) Discussed potential ophthalmic complications of diabetes w/ patient. OK to follow in camera clinic w/ optom visits PRN 3 A) Pseudophakia ou (2017) P) Monitor for changes 4 A) Presbyopia ou - Last Refraction 05/2024 P) No glasses ordered today, will recheck refraction at f/u appt f/u RTC optom 5-6 weeks for f/u on dry eyes & recheck refraction /es/ CHARLES VELAZQUEZ CERTIFIED MASTER SAFECRACKER Signed: 05/19/2024 10:28 [facility] May 19, 2024 09:06 AM OPHTHALMOLOGY E & M NOTE: LOCAL TITLE: OPHTHALMIC EXAM PB STANDARD TITLE: OPHTHALMOLOGY E & M NOTE DATE OF NOTE: MAY 19, 2024@09:06 ENTRY DATE: MAY 19, 2024@09:06:33 AUTHOR: SHARMIN CULVER EXP COSIGNER: URGENCY: STATUS: COMPLETED SUBJECTIVE: 73 year old seen in clinic. CHIEF COMPLAINT: Blur at NV and DV. Pt said that he has a hard when trying to read. Pt also said that he has a really hard time with night driving. Pt current glasses are before his surgey. Last eye exam: Pt said that he was seen sometime after his surgey by Dr. Vo. Surgery: Cataracts Removed OU by Dr. Vo. Pt does not know when. Eye medications: None. Lab: Hgb A1C: HGA1C 7.7 H % 02/13/2024 08:05 Diabetic: NIDDM Type 2 since 2013 ALLERGIES: GEMFIBROZIL, LISINOPRIL, COLESTIPOL, SIMVASTATIN, PRAVASTATIN, LOVASTATIN NIACIN VISUAL ACUITY OD: 20/30-0 ph: 25-0 OS: 20/20-0 ph: Blur Without correction pupils rapd - Dilated with 1% Tropicamide @ 9:23. Ed pt on se of DFE. Post sun sheild provided. Pt voiced understanding. AUTO REFRACTION OD:plano -1.00 X 030 OS:-0.25 -0.25 X 007 Tonometry ICare Reading -OD 14 -OS 14 /es/ YESIKA REESE [facility] Signed: 05/19/2024 09:26 SHARMIN CULVER [facility]
--- OUTSIDE RECORDS SUMMARY | 2024-06-22 03:45 | XMS_ITS | Encounter Summary ---
Author Name [facility] [place] Organization [place] Address [address] [place] [address] Care Team Providers Care Clicker Operator Name Role Phone ALBINO ARGUELLO Primary Care [...] PART A May 07, 2014 PART A [id number] 63A CLARITA SIERRA PATIENT MEDICARE (WNR) MEDICARE (M) PART A May 07, 2014 PART A [id number] [phone] [id number] JOSE SIERRAE PATIENT Selected Encounter This section includes the information on record at [place] for the Encounter. Date/Time Encounter Type Encounter Description Reason Provider Source Jun 22, 2024 08:45 AM INTRM OPH EXAM EST PATIENT OPTOMETRY ICD-10-CM H04.123 Dry eye syndrome of bilateral lacrimal glands CHARLES VELAZQUEZ [facility] Encounter Template Text not used by [facility] Assessments - Encounter Diagnoses This section includes the primary and secondary diagnoses documented for the Encounter. Date/Time Primary/Secondary Diagnosis Diagnosis Name Provider Source Jun 22, 2024 09:34 AM PRIMARY Dry eye syndrome of bilateral lacrimal glands CHARLES VELAZQUEZAMITA DARIAMAYLIN [facility] Jun 22, 2024 09:34 AM SECONDARY Presbyopia CHARLES VELAZQUEZAMITA [facility]LIN [facility] Jun 22, 2024 09:34 AM SECONDARY Presence of intraocular lens CHARLES VELAZQUEZAMITA DARIAMAYLIN [facility] Plan of Treatment: Future Appointments (+ 6 months) and Future Tests (+/- 45 days) The Plan of Treatment section includes future care activities for the patient from all [place] [facility]. This section includes future appointments and future orders which are active, pending or scheduled. Future Appointments This section includes appointments that were scheduled to occur 6 months from the date of the Encounter, up to a maximum of 20 appointments. The data comes from all [place] treatment facilities. Appointment Date/Time Appointment Type Appointme nt Facility Name Aug 04, 2024 10:00 AM AMBULATORY - MEDICINE [facility] Sep 03, 2024 08:40 AM AMBULATORY - MEDICINE [facility] Sep 10, 2024 09:00 AM AMBULATORY - MEDICINE [facility] Oct 05, 2024 09:00 AM AMBULATORY - NONE [facility] Nov 03, 2024 12:30 PM AMBULATORY - MEDICINE [facility] November 11, 2024 09:20 AM AMBULATORY - MEDICINE [facility] November 16, 2024 11:30 AM [facility] Encounter Notes: All associated encounter notes This section contains the clinical notes associated to the Encounter. Date/Time Encounter Note(s) Provider Source Jun 22, 2024 09:06 AM EYE NOTE: LOCAL TITLE: EYEGLASS PRESCRIPTION NOTE PB STANDARD TITLE: EYE NOTE DATE OF NOTE: JUN 22, 2024@09:06 ENTRY DATE: JUN 22, 2024@09:06:05 AUTHOR: CHARLES VELAZQUEZ EXP COSIGNER: URGENCY: STATUS: COMPLETED DATE OF LAST EYE EXAM:JUN 22, 2024 plano -1.25 x 030 plano -0.75 x 120 Add: +2.50 LENS MATERIAL: LENS TYPE: PAL - Intermediate Range Required Other Add Ons: Additional Comments: /yane/ CHARLES VELAZQUEZ CHAIN SPLITTER Signed: 06/22/2024 09:06 CHARLES VELAZQUEZ BAKARI MERCER [facility] Jun 22, 2024 08:53 AM OPHTHALMOLOGY E & M NOTE: LOCAL TITLE: OPHTHALMIC EXAM PB STANDARD TITLE: OPHTHALMOLOGY E & M NOTE DATE OF NOTE: JUN 22, 2024@08:53 ENTRY DATE: JUN 22, 2024@08:53:25 AUTHOR: CHARLES VELAZQUEZ EXP COSIGNER: URGENCY: STATUS: COMPLETED CHIEF COMPLAINT: Pt is here today for his 5 week follow up. Blur at NV. Pt said that he has trouble when trying to read things. Pt said that he has noticed that his eyes still water often. Pt current glasses are at home today. Last eye exam: 05/19/2024 here. Surgery: None since last visit here. Eye medications: Systane Balance 1X Daily Lab: Hgb A1C: HGA1C 7.7 H % 02/13/2024 08:05 Diabetic: NIDDM Type 2 since 2013 ALLERGIES: GEMFIBROZIL, LISINOPRIL, COLESTIPOL, SIMVASTATIN, PRAVASTATIN, LOVASTATIN NIACIN VISUAL ACUITY OD: 20/25-1 ph: No Improv OS: 20/25-0 ph: No Improv Without correction pupils rapd - Pt last DFE was 05/2024 here. Lens Type: Progressive Tonometry ICare Reading -OD 12 -OS 12 (COPIED TECH NOTE ABOVE-AGREE W/ FINDINGS, CONTINUE DOCTOR NOTE BELOW) -SUBJECTIVE- 74M here for eye exam and new glasses. Patient presents with concerns as stated above, says the watering has improved, but eyes are still blurry. Pt finished FML, still using systane balance q daily. OHx: NOLAN 05/2024 here. Pt had progressives prior to cat surgery, no glasses worn since having sx in 2018. Patient reports no history of eye injury. He is s/p CE w/ PCIOL 11/2017 od & 10/2017 os through community consult. MHx: +Type 2 DM (Dx'd 2013). see allergies above. -OBJECTIVE- Pupils as above EOMs FROM CT ORTHO REFRACTION plano -1.25 x 030 20/25 plano -0.75 x 120 20/25 fuzzy Add: +2.50 SLEx -Adnexa brow ptosis ou -L/L significant sup dermatochalasis (over lashes) ou -Conj mild diffuse hyperemia ou -Cornea arcus, sm round scar w/ ~1mm temp pterygium od, thin tear film appears mildly improved vs last appt -Irises intact, no nvi ou -A/C quiet ou -Lens pciol appears centered & clear ou -ASSESSMENT/PLAN- 1 A) Dry eyes ou [...] 4 A) Presbyopia ou - Last Refraction 06/2024 P) New clear progressives ordered today f/u RTC in camera clinic or optom PRN /es/ CHARLES VELAZQUEZ CHAIN SPLITTER Signed: 06/22/2024 09:38 CHARLES VELAZQUEZ [facility] Jun 22, 2024 08:37 AM OPHTHALMOLOGY E & M NOTE: LOCAL TITLE: OPHTHALMIC EXAM PB STANDARD TITLE: OPHTHALMOLOGY E & M NOTE DATE OF NOTE: JUN 22, 2024@08:37 ENTRY DATE: JUN 22, 2024@08:37:11 AUTHOR: SHARMIN CULVER EXP COSIGNER: URGENCY: STATUS: COMPLETED SUBJECTIVE: 74 year old seen in clinic. CHIEF COMPLAINT: Pt is here today for his 5 week follow up. Blur at NV. Pt said that he has trouble when trying to read things. Pt said that he has noticed that his eyes still water often. Pt current glasses are at home today. Last eye exam: 05/19/2024 here. Surgery: None since last visit here. Eye medications: Systane Balance 1X Daily Lab: Hgb A1C: HGA1C 7.7 H % 02/13/2024 08:05 Diabetic: NIDDM Type 2 since 2013 ALLERGIES: GEMFIBROZIL, LISINOPRIL, COLESTIPOL, SIMVASTATIN, PRAVASTATIN, LOVASTATIN NIACIN VISUAL ACUITY OD: 20/25-1 ph: No Improv OS: 20/25-0 ph: No Improv Without correction pupils rapd - Pt last DFE was 05/2024 here. AUTO REFRACTION (from last exam) OD:plano -1.00 X 030 OS:-0.25 -0.25 X 007 Lens Type: Progressive Tonometry ICare Reading -OD 12 -OS / YESIKA REESE [facility] Signed: 06/22/2024 08:50 SHARMIN CULVER [facility]
--- OUTSIDE RECORDS SUMMARY | 2024-09-10 04:00 | XMS_ITS | Encounter Summary ---
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 Date/Time Encounter Type Encounter Description Reason Provider Source Sep 10, 2024 09:00 AM OFFICE O/P EST MOD 30 MIN PRIMARY CARE/MEDICINE ICD-10-CM E11.9 Type 2 diabetes mellitus without complications BETTY ARGUELLO Encounter Template Text not used by [facility] Assessments - Encounter Diagnoses This section includes the primary and secondary diagnoses documented for the Encounter. Date/Time Primary/Secondary Diagnosis Diagnosis Name Provider Source Sep 10, 2024 10:22 AM PRIMARY Type 2 diabetes mellitus without complications MARIBEL ARGUELLO [facility] Sep 10, 2024 10:22 AM SECONDARY Carcinoma in situ of right eye SAUNDRA,TAMMY [facility] Sep 10, 2024 10:22 AM SECONDARY Contact with and exposure to other hazardous substances SAUNDRAMARIBEL [facility] Sep 10, 2024 10:22 AM SECONDARY Essential (primary) hypertension SAUNDRA,TAMMY [facility] Sep 10, 2024 10:22 AM SECONDARY Fatty (change of) liver, not elsewhere classified SAUNDRA,TAMMY [facility] Sep 10, 2024 10:22 AM SECONDARY Hyperlipidemia, unspecified SAUNDRA,TAMMY [facility] Sep 10, 2024 10:22 AM SECONDARY [facility] Sep 10, 2024 10:22 AM SECONDARY Other hemorrhoids SAUNDRA,TAMMY [facility] Sep 10, 2024 10:22 AM SECONDARY [facility] Sep 10, 2024 10:22 AM SECONDARY 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 SAUNDRA,TAMMY [facility] Sep 10, 2024 10:22 AM SECONDARY Tinea [facility]guium [facility] Sep 10, 2024 10:22 AM SECONDARY Unsp dementia, unsp severity, without beh/psych/mood/anx SAUNDRAMARIBEL [facility] Sep 10, 2024 10:22 AM SECONDARY Unspecified cirrhosis of liver [facility] Sep 10, 2024 10:22 AM SECONDARY Unspecified sensorineural hearing loss [facility] Plan of Treatment: Future Appointments (+ 6 months) and Future Tests (+/- 45 days) The Plan of Treatment section includes future care activities for the patient from all [place] treatmentfacilities. This section includes future appointments and future orders which are active, pending or scheduled. Future Appointments This section includes appointments that were scheduled to occur 6 months from the date of the Encounter, up to a maximum of 20 appointments. The data comes from all [facility]. Appointment Date/Time Appointment Type Appointme nt Facility Name Oct 05, 2024 09:00 AM AMBULATORY - NONE [facility] Nov 03, 2024 12:30 PM AMBULATORY - MEDICINE [place] [facility] November 11, 2024 09:20 AM AMBULATORY - MEDICINE [place] [facility] November 16, 2024 11:30 AM AMBULATORY - SURGERY [place] [facility] Feb 28, 2025 09:00 AM AMBULATORY - MEDICINE [facility] Mar 08, 2025 09:30 AM AMBULATORY - MEDICINE [facility] Active, Pending, and Scheduled Orders This section includes a listing of several types of active, pending, and scheduled orders, including clinic medications orders, diagnostic test orders, procedure orders and consult orders; where the start date of the order is 45 days before the date of the Encounter or 45 days after the date of theEncounter. The data comes from all [facility]. Test Date/Time Test Type Test Details Facility Name Oct 11, 2024 12:00 AM Laboratory - Chemi stry Order CBC BLOOD SP [facility] Oct 11, 2024 02:33 PM Consult Order COMMUNITY CARE-DERMATOLOGY [id number] Cons Technology Specialist's Choice [facility] Lab Results: +/- 30 days of the encounter This section includes the Chemistry and Hematology Lab Results on record with [place] for the patient. Radiology Reports and Pathology Reports are provided separately, in subsequent sections. Lab Results This section contains the Chemistry/Hematology Results that were resulted 30 days before or 30 daysafter the date of the Encounter. Date/Time Source Result Type Result - Unit Interpretation Reference Range Specimen Type Comment Oct 05, 2024 07:[address] [facility] COMPREHENSIVE METABOLIC PANEL PLASMA Specimen Type: PLASMA No comment entered. Ordering Provider: MARIBEL ARGUELLO Report Released Date/Time: Oct 04, 2024 03:13 PM Reporting [facility] [address] [place] [address] Performing Lab: [facility] [address] [facility] [place] [address] CREATININE 0.96 mg/dL 0.7-1.3 UREA NITROGEN 14 mg/dL 9-25 GLUCOSE 130 mg/dL H 72-99 SODIUM 140 meq/L 136-145 POTASSIUM 4.1 meq/L 3.5-5 CHLORIDE 107 meq/L 98-107 CARBON DIOXIDE 22 meq/L 22-31 CALCIUM 8.7 mg/dL 8.4-10.4 PROTEIN 7.6 g/dL 6-8.6 ALBUMIN 4.0 g/dL 3.4-5 TOTAL BILIRUBIN 0.6 mg/dL 0.2-1.2 ALKALINE PHOSPHATASE 145 U/L 40-150 AST/SGOT 69 U/L H 5-34 ALT/SGPT 59 U/L H 8-40 EGFR (CKD-EPI 2020) 82 Oct 05, 2024 07:59 AM [facility] CHOLESTEROL PANEL (PB) PLASMA Specimen Type: P SAMIRA No comment entered. Ordering Provider: MARIBEL ARGUELLO Report Released Date/Time: Oct 05, 2024 09:22 AM Reporting Lab: [place] [facility] [address] [place] [address] Performing Lab: [place] [facility] [address] [place] [address] CHOLESTEROL 155 mg/dL 0-200 TRIGLYCERIDE 134 mg/dL 0-150 CALCULATED LDL 74.2 mg/dL HDL(New) 54.0 mg/dL H >40 HDL % OF TOTAL CHOLESTEROL (PB) 34.8 >25 Sep 10, 2024 10:11 AM [facility] AMMONIA-PB PLASMA Specimen Typ e: PLASMA No comment entered. Ordering Provider: MARIBEL ARGUELLO Report Released Date/Time: Sep 10, 2024 09:57 AM Reporting Lab: [place] [facility] [address] [place] [address] Performing Lab: [place] [facility] [address] [place] [address] AMMONIA-PB 44 umol/L H 13.5-35 Sep 10, 2024 10:11 AM [facility] FOLATE (PB) SERUM Specimen Typ e: SERUM No comment entered. Ordering Provider: MARIBEL ARGUELLO Report Released Date/Time: Sep 10, 2024 09:57 AM Reporting Lab: [place] [facility] [address] [place] [address] Performing Lab: [place] [facility] [address] [place] [address] FOLATE (PB) 9.6 ng/mL 7-20 Sep 10, 2024 10:11 AM [facility] B12 SERUM Specimen Type: SERUM No comment entered. Ordering Provider: MARIBEL ARGUELLO Report Released Date/Time: Sep 10, 2024 09:57 AM Reporting Lab: [place] [facility] [address] [place] [address] Performing Lab: [place] [facility] [address] [place] [address] B12 715 pg/mL 213-816 Sep 10, 2024 10:11 AM [place] [facility] IRON/TIBC PROFILE SERUM Specimen Type: SERUM No comment entered. Ordering Provider: MARIBEL ARGUELLO Report Released Date/Time: Sep 10, 2024 09:57 AM Reporting Lab: [place] [facility] [address] [place] [address] Performing Lab: [place] [facility] [address] [place] [address] TIBC 440 ug/dL TRANSFERRIN 352 mg/dL H 163-344 IRON SATURATION 13 L 20-50 IRON 56 ug/dL L 65-175 Sep 03, 2024 08:16 AM [facility] HGA1C BLOOD Specimen Type: BLOOD No comment entered. Ordering Provider: MARIBEL ARGUELLO Report Released Date/Time: Sep 16, 2023 09:26 AM Reporting Lab: [place] [facility] [address] [place] [address] Performing Lab: [place] [facility] [address] [place] [address] HGA1C 6.5 H 4.0-6.0 Sep 03, 2024 08:16 AM [facility] [place] [facility] CHOLESTEROL PANEL (PB) PLASMA Specimen Type: P LASMA No comment entered. Ordering Provider: MARIBEL ARGUELLO Report Released Date/Time: Sep 16, 2023 09:26 AM Reporting Lab: [place] [facility] [address] [place] [address] Performing Lab: [place] [facility] [address] [place] [address] CHOLESTEROL 166 mg/dL 0-200 TRIGLYCERIDE 148 mg/dL 0-150 CALCULATED LDL 86.4 mg/dL HDL(New) 50.0 mg/dL H >40 HDL % OF TOTAL CHOLESTEROL (PB) 30.1 >25 Sep 03, 2024 08:16 AM [facility] COMPREHENSIVE METABOLIC PANEL PLASMA Specimen Type: PLASMA No comment entered. Ordering Provider: MARIBEL ARGUELLO Report Released Date/Time: Sep 16, 2023 09:26 AM Reporting Lab: [place] [facility] [address] [place] [address] Performing Lab: [place] [facility] [address] [place] [address] CREATININE 0.93 mg/dL 0.7-1.3 UREA NITROGEN 16 mg/dL 9-25 GLUCOSE 116 mg/dL H 72-99 SODIUM 139 meq/L 136-145 POTASSIUM 4.0 meq/L 3.5-5 CHLORIDE 104 meq/L 98-107 CARBON DIOXIDE 23 meq/L 22-31 CALCIUM 9.0 mg/dL 8.4-10.4 PROTEIN 7.9 g/dL 6-8.6 ALBUMIN 4.1 g/dL 3.4-5 TOTAL BILIRUBIN 0.5 mg/dL 0.2-1.2 ALKALINE PHOSPHATASE 180 U/L H 40-150 AST/SGOT 102 U/L H 5-34 ALT/SGPT 101 U/L H 8-40 EGFR (CKD-EPI 2020) 86 Sep 03, 2024 08:16 AM [facility] CBC BLOOD Specimen Type: BLOOD No comment entered. Ordering Provider: MARIBEL ARGUELLO Report Released Date/Time: Mar 12, 2024 10:06 AM Reporting Lab: [place] [facility] [address] [place] [address] Performing Lab: [place] [facility] [address] [place] [address] WBC 10.2 10*3/uL 3.6-11.2 RBC 3.22 10*6/uL L 4.10-5.70 HGB 9.3 g/dL L 13.1-16.8 HCT 30.4 L 38.2-48.4 MCV 94.4 fL 80.0-100.0 MCH 28.9 pg 27.0-34.0 MCHC 30.6 g/dL L 33.0-36.0 PLT 261 10*3/uL 150-400 MPV 11.4 fL H 7.5-11.2 RDW 18.6 H 11.8-15.1 LYMPHOCYTES, AUTO % 8.3 MONOCYTES, AUTO % 8.8 NEUTROPHILS, AUTO % 76.9 EOSINOPHILS, AUTO % 3.7 BASOPHILS, AUTO % 0.6 LYMPHOCYTES, ABSOLUTE 0.85 10*3/uL 0.77- 4.50 MONOCYTES, ABSOLUTE 0.90 10*3/uL H 0.19-0. 8 NEUTROPHILS, ABSOLUTE 7.85 10*3/uL 2.10- 8.00 EOSINOPHILS, ABSOLUTE 0.38 10*3/uL 0.00- 0.60 BASOPHILS, ABSOLUTE 0.06 10*3/uL 0.00-0. 20 IMMATURE GRANS, AUTO % 1.7 IMMATURE GRANS, AUTO ABS 0.17 10*3/uL H 0. 00-0.05 Vital Signs: All taken on the encounter date This section contains inpatient and outpatient Vital Signs collected on the date of the Encounter. Date/Time Temperature Pulse Blood Pressure Respiratory Rate SP02 Pain Height Weight Body Mass Index Source Sep 10, 2024 09:38 AM 64 148/75 98 [facility] Sep 10, 2024 09:37 AM 63 149/74 18 98 4 220.8 32 [facility] Social History: Smoking Status (Most current) and Tobacco Use (All prior to encounter date) This section includes the most current, and the historical, smoking and tobacco- related health factors from the [place] facility where the Encounter took place. Current Smoking Status This section includes the most current smoking, or tobacco-related health factor, from the [place] facility where the Encounter took place. Date/Time Current Smoking Status Comment Facil ity Mar 12, 2024 09:30 AM AR-TOBACCO NEVER USED [facility] Tobacco Use History This section includes a history of the smoking, or tobacco-related health factors, that were collected on or before the date of the Encounter. The data comes from the [place] facility where the Encounter took place. Date/Time Smoking Status/Tobacco Use Comment F acility Mar 20, 2023 10:00 AM VA-TOBACCO NEVER USED [facility] Mar 27, 2022 08:30 AM VA-TOBACCO NEVER USED [facility] Nov 01, 2020 01:00 PM VA-TOBACCO NEVER USED [facility] Dec 15, 2008 02:38 PM LIFETIME NON-USER OF TOBACCO [facility] Apr 09, 2006 08:23 AM LIFETIME NON-TOBACCO USER [facility] Apr 19, 2005 09:02 AM LIFETIME NON-TOBACCO USER [facility] Jan 18, 2004 10:46 AM LIFETIME NON-TOBACCO USER [facility] Apr 05, 2003 09:06 AM LIFETIME NON-TOBACCO USER [facility] May 25, 2002 02:25 PM LIFETIME NON-TOBACCO USER [facility] Radiology Reports: +/- 30 days [...] the Encounter. The data comes from all [place] treatment facilities. Date/Time Radiology Report Provider Source Oct 05, 2024 08:44 AM MRI BRAIN W/O&W CO NT: CLARITA SIERRA [id number] M Exm Date: OCT 05, 2024@08:44 Req Phys: MARIBEL ARGUELLO Loc: PB-[facility] PACT ECHO PCP (Req'g Lo Img Loc: PB-MOBILE MRI Service: Unknown NANCY VIDES [facility] [place] ANDERSEN [id number] (Case [id number] COMPLETE) MRI BRAIN W/O&W CONT (MRI Detailed) CPT:38199 Contrast Media : unspecified contrast media Gadolinium Reason for Study: Memory loss Clinical History: Reason for exam: Memory issues Does the patient have: Pacemaker? NO Cochlear implants? NO Aneurysm Clip? NO Any metallic prosthesis? NO Neurotransmitter? NO Weigh over 350 lbs? NO (Note: Weight limit 350lbs but shoulder and abominal girth also a a limiting factor) Female patient: ? NO IUD? NO Urgent Request? NO Report Status: Verified Date Reported: OCT 05, 2024 Date Verified: OCT 05, 2024 Jacquard Card Lacer E-Sig:/ES/ERIKA EAGLE Report: Multiple pulse sequences in coronal, sagittal and axial planes were obtained before and after intravenous administration of contrast medium. The ventricles are normal in size for age. There is no midline shift or other mass effect. There is signal alteration in the deep periventricular white matter and centrum semiovale bilaterally compatible with chronic small vessel ischemia. A primary demyelinating process might have a similar appearance. There is no direct evidence of an acute hemorrhagic or nonhemorrhagic CVA or other acute intracranial process. There is no abnormal enhancement. The cerebellopontine angles are normal. The IACs and cranial nerves VII and VIII are bilaterally symmetric and normal, as are the optic globes and retrobulbar spaces. The sella turcica and pituitary gland are normal in size, contour and signal. The major caliber vessels are normal in size and position, and manifest normal flow characteristics. The base of the brain is normal in contour and position. There is a mild nasal septal deviation with convexity to the right. There is no acute process referable to the paranasal or mastoid sinuses. Impression: 1. Chronic findings as noted 2. No acute process Primary Interpreting Staff: ERIKA EGALE, RADIOLOGIST (Jacquard Card Lacer) /ERIKA Mccarthy [facility] Encounter Notes: All associated encounter notes This section contains the clinical notes associated to the Encounter. Date/Time Encounter Note(s) Provider Source Oct 05, 2024 01:07 PM PHYSICIAN LETTERS: LOCAL TITLE: TEST RESULT GENERAL LETTER STL STANDARD TITLE: PHYSICIAN LETTERS DATE OF NOTE: OCT 05, 2024@13:07 ENTRY DATE: OCT 05, 2024@13:07:18 AUTHOR: MARIBEL ARGUELLO COSIGNER: URGENCY: STATUS: COMPLETED [facility] [address] [place] [address] OCT 05, 2024 CLARITA SIERRA [address] [place], [place] [address] Dear Clarita Sierra, I would like to update you on your recent test results. MRI BRAIN W/O&W CONT Contrast Media : unspecified contrast media Gadolinium Reason for Study: Memory loss Report Status: Verified Date Reported: OCT 05, 2024 Report: Multiple pulse sequences in coronal, sagittal and axial planes were obtained before and after intravenous administration of contrast medium. The ventricles are normal in size for age. There is no midline shift or other mass effect. There is signal alteration in the deep periventricular white matter and centrum semiovale bilaterally compatible with chronic small vessel ischemia. A primary demyelinating process might have a similar appearance. There is no direct evidence of an acute hemorrhagic or nonhemorrhagic CVA or other acute intracranial process. There is no abnormal enhancement. The cerebellopontine angles are normal. The IACs and cranial nerves VII and VIII are bilaterally symmetric and normal, as are the optic globes and retrobulbar spaces. The sella turcica and pituitary gland are normal in size, contour and signal. The major caliber vessels are normal in size and position, and manifest normal flow characteristics. The base of the brain is normal in contour and position. There is a mild nasal septal deviation with convexity to the right. There is no acute process referable to the paranasal or mastoid sinuses. Impression: 1. Chronic findings as noted 2. No acute process FUTURE APPOINTMENTS: 11/03/2024 12:30 [facility] CARE-HEMATOLOGY/ONC 6 02/28/2025 09:00 [facility] ( 03/08/2025 09:30 [facility] PACT ECHO PCP MRI of the brain showed no significant findings only chronic findings consistent with age and his chronic health issues. Sincerely, Maribel Arguello MD [facility]ITA SIERRA [facility] Oct 05, 2024 11:30 AM PHYSICIAN LETTERS: LOCAL TITLE: TEST RESULT GENERAL LETTER ST STANDARD TITLE: PHYSICIAN LETTERS DATE OF NOTE: OCT 05, 2024@11:30 ENTRY DATE: OCT 05, 2024@11:30:33 AUTHOR: MARIBEL ARGUELLO EXP COSIGNER: URGENCY: STATUS: COMPLETED [facility] [address] [place] [address] Oct 05, 2024 Mr. Clarita Sierra [address] [place], [place] [address] Dear Mr. Sierra: This letter is to inform you regarding your recent laboratory tests. The ordering provider has reviewed these reports and will take necessary action, if needed. Date Lab Test Result H/L Unit Range 10/05/2024 eGFR 82 - 10/05/2024 SODIUM 140 mEq/L 136 - 145 10/05/2024 POTASSIUM 4.1 mEq/L 3.5 - 5 10/05/2024 CHLORIDE 107 mEq/L 98 - 107 10/05/2024 UREA NITROGEN 14 mg/dL 9 - 25 10/05/2024 CREATININE, SERUM 0.96 mg/dL 0.7 - 1.3 10/05/2024 CALCIUM, SERUM 8.7 mg/dL 8.4 - 10.4 10/05/2024 PROTEIN, TOTAL 7.6 g/dL 6 - 8.6 10/05/2024 ALBUMIN, SERUM 4.0 g/dL 3.4 - 5 10/05/2024 ALKALINE PHOSPHAT 145 U/L 40 - 150 10/05/2024 ALT (SGPT) 59 H U/L 8 - 40 10/05/2024 AST (SGOT) 69 H U/L 5 - 34 10/05/2024 BILIRUBIN, TOTAL 0.6 mg/dL 0.2 - 1.2 10/05/2024 CO2 22 mEq/L 22 - 31 10/05/2024 GLUCOSE 130 H mg/dL 72 - 99 10/05/2024 TRIGLYCERIDE 134 mg/dL 0 - 150 10/05/2024 CHOLESTEROL 155 mg/dL 0 - 200 10/05/2024 HDL-CHOL 54.0 H mg/dL 40 - 10/05/2024 LDL-CHOL 74.2 mg/dL - 10/05/2024 HDL%CHO 34.8 % 25 - If you are seeing any outside provider(s), please share this information with him/her. If you have any questions, please feel free to contact our clinic. Sincerely, Maribel Arguello MD [facility] CLARITA SIERRA TAMMY [facility] Sep 13, 2024 08:24 AM ADDENDUM: LOCAL TITLE: Addendum STANDARD TITLE: ADDENDUM DATE OF NOTE: SEP 13, 2024@08:24:30 ENTRY DATE: SEP 13, 2024@08:24:30 AUTHOR: MARIBEL ARGUELLO EXP COSIGNER: URGENCY: STATUS: COMPLETED Notify patient his Iron is very low and I have ordered him some ferrous sulfate to take BID and will repeat a CBC in 1 month. His amonia level is also a little elevated which will add to his confusion. I have sent these labs to his creative perfumer. /es/ Maribel Arguello MD [facility] Signed: 09/13/2024 08:26 Receipt Acknowledged By: 10/01/2024 09:57 /es/ Adam Omalley RN,BSN [place] --- Original Document --- 09/10/24 PRIMARY CARE CLINIC PROGRESS NOTE PB: SUBJECTIVE: CLARITA SIERRA is a 74 years old MALE. HPI: Presents to the clinic today for a periodic health maintenance visit. Last seen March 12, 2024. He reports he continues to have some rectal bleeding he has been diagnosed with cirrhosis of the liver since our last visit noted on CT scan. In addition he had a EGD and colonoscopy last month through his creative perfumer. He did have esophageal varices in addition to colon polyps internal hemorrhoids and rectal AVMs. reports he is continuing to have lower GI bleeding and at times actually has to wear depends secondary to this. They have also noticed worsening short-term memory over the last several months. Non-VA Primary Care Provider None Specialty Services: Ophthalmology Dermatology, [facility], Dr. Rice ([facility]) FAMILY HX: Mother is , Alzheimer's age - 80s Father is , CVA age - 84 Sister- ? 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 DO NOT TAKE ANTACIDS OR CALCIUM SUPPLEMENTS WITHIN 2 HRS OF TAKING THIS MEDICATION. 2) BRIEF,PROTECTIVE SUPER ABS XLG ATTENDS USE 1 BRIEF TO ACTIVE AFFECTED AREA(S) TWICE DAILY NEEDED Indication: FOR INCONTINENCE 3) EMPAGLIFLOZIN 25MG TAB TAKE ONE TABLET BY MOUTH ONCE A DAY ACTIVE Indication: FOR DIABETES 4) FLUOROMETHOLONE 0.1% OPH SUSP INSTILL 1 DROP IN BOTH EYES ACTIVE FOUR TIMES A DAY - APPLY TO INSIDE OF LOWER LID. CLOSE EYE FOR 1-2 MINUTES AND ROLL EYEBALL IN ALL DIRECTIONS. Indication: FOR OCULAR INFLAMMATION 5) FLUOROURACIL 5% CREAM APPLY THIN FILM TO AFFECTED AREA(S) ACTIVE TWICE A DAY FOR 3 WEEKS APPLY TO ARMS AND HANDS. EXPECT A RED, BEEFY RASH TO TREATED AREAS. AVOID SUN EXPOSURE. FOLLOW DIRECTIONS CAREFULLY FOR PROPER HANDLING/DISPOSAL. 6) GLIMEPIRIDE 2MG TAB TAKE ONE-HALF TABLET BY MOUTH EVERY ACTIVE MORNING TAKE WITH BREAKFAST OR FIRST FOOD. Indication: FOR DIABETES 7) HYDRALAZINE HCL 25MG TAB TAKE ONE TABLET BY MOUTH THREE ACTIVE TIMES A DAY NEEDED FOR BLOOD PRESSURE IF SBP IS GREATER THAN 140 Indication: FOR HIGH BLOOD PRESSURE 8) HYDROCHLOROTHIAZIDE 25MG TAB TAKE ONE TABLET BY MOUTH ONCE A ACTIVE (S) DAY FOR BLOOD PRESSURE 9) LANCET,SOFTCLIX USE LANCET FOR BLOOD TEST TWO TIMES PER WEEK ACTIVE (S) TO MONITOR BLOOD SUGAR. USE DIRECTED. 10) METFORMIN HCL 1000MG TAB TAKE ONE TABLET BY MOUTH TWICE A ACTIVE (S) DAY WITH MEALS FOR BLOOD SUGAR CONTROL. TAKE WITH FOOD. AVOID ALCOHOL. DISCONTINUE BEFORE GETTING XRAY DYE. 11) OMEPRAZOLE 40MG EC CAP TAKE ONE CAPSULE BY MOUTH ONCE A DAY ACTIVE TAKE 30 MINUTES PRIOR TO FOOD. 12) PRAVASTATIN NA 40MG TAB TAKE ONE TABLET BY MOUTH EVERY ACTIVE EVENING Indication: FOR HIGH CHOLESTEROL 13) PROPYLENE GLYCOL 0.6% OPH SOLN INSTILL 1 DROP IN BOTH EYES ACTIVE FOUR TIMES A DAY Indication: FOR DRY EYE(S) Active Non-VA Medications Status 1) Non-VA FISH OIL 1000MG (500MG DHA/EPA) CAP 2000MG BY MOUTH ACTIVE TWICE A DAY 14 Total Medications Allergies: GEMFIBROZIL, LISINOPRIL, COLESTIPOL, SIMVASTATIN, [...] F [36.8 C] (03/12/2024 09:38) Respiratory Rate: 18 (09/10/2024 09:37) Pulse Rate: 64 (09/10/2024 09:38) Blood Pressure: 148/75 (09/10/2024 09:38) HT: 70.0 in [177.8 cm] (03/12/2024 09:38) WT: 220.8 lb [100.15 kg] (09/10/2024 09:37) BMI: 31.7 98% (09/10/2024 09:38) Physical Exam General: NAD noted, A&Ox3, [...] a day if blood pressure greater than 140; per recommendation of GI to start him on Coreg therefore will discontinue his atenolol in addition patient is unsure if he is actually been taking his losartan and has not been filled since July 2023 we will go ahead and restart that as long as his blood pressure tolerates again using the hydralazine only as needed Hyperlipidemia-we will try to start back on his review rosuvastatin let me know if he is having any issues with that and recheck his cholesterol level in 3 months Obesity - encouraged diet/exercise for weigh loss Prostate Cancer - s/p treatment no longer in surveillance; denies any issues. Hearing loss- has hearing aids History of cancer of eye- followed by ophthalmology Squamous cell carcinoma of skin of ear- no new lesions of concern SOB- mostlikely secondary to anemia chemical NM Mian Perf SPECT Stress test done in October 2022 normal Cirrhosis of the liver h/o Polyp Colon-followed by GI next appointment 09/20/2024. Ammonia level added to today's labs Internal pains with rectal AVMs-followed by GI Anemia-secondary to GI bleed will obtain a iron folate and B12 level today more than likely will be starting on iron supplementation Dementia-we will set up for an MRI I of the brain discussed with patient importance of blood pressure control; ammonia level added to labs will also start on Aricept after discussion of potential risk and benefits Exposure to potentially hazardous substance Stable. Discussed [...] appointments. Medications Reconciled. See AVS given to [place]. Time spent 30 minutes. /yane/ Maribel Arguello MD [facility] Signed: 09/10/2024 10:22 09/10/2024 ADDENDUM STATUS: COMPLETED Please send copy of patient's latest labs to his creative perfumer, Dr. Rice ([facility]) /yane/ Maribel Arguello MD [facility] Signed: 09/10/2024 16:22 Receipt Acknowledged By: 09/13/2024 09:26 /MARIBEL Hercules [facility] Sep 10, 2024 04:22 PM ADDENDUM: LOCAL TITLE: Addendum STANDARD TITLE: ADDENDUM DATE OF NOTE: SEP 10, 2024@16:22:32 ENTRY DATE: SEP 10, 2024@16:22:33 AUTHOR: MARIBEL ARGUELLO EXP COSIGNER: URGENCY: STATUS: COMPLETED Please send copy of patient's latest labs to his creative perfumer, Dr. Rice ([facility]) /yane/ Maribel Arguello MD [facility] Signed: 09/10/2024 16:22 Receipt Acknowledged By: 09/13/2024 09:26 /gamal DAVIS --- Original Document --- 09/10/24 PRIMARY CARE CLINIC PROGRESS NOTE PB: SUBJECTIVE: CLARITA SIERRA is a 74 years old MALE. HPI: Presents to the clinic today for a periodic health maintenance visit. Last seen March 12, 2024. He reports he continues to have some rectal bleeding he has been diagnosed with cirrhosis of the liver since our last visit noted on CT scan. In addition he had a EGD and colonoscopy last month through his creative perfumer. He did have esophageal varices in addition to colon polyps internal hemorrhoids and rectal AVMs. reports he is continuing to have lower GI bleeding and at times actually has to wear depends secondary to this. They have also noticed worsening short-term memory over the last several months. Non-VA Primary Care Provider None Specialty Services: Ophthalmology Dermatology, [facility], Dr. Rice ([facility]) FAMILY HX: Mother is , Alzheimer's age - 80s Father is , CVA age - 84 Sister- ? 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 Problem List 1) HTN - Hypertension (SNOMED CT 94756752) 2) HLD - Hyperlipidemia (SNOMED CT 05485402) 3) Obesity (SNOMED CT 248054669) 4) Fatty liver 5) History of cancer of eye 6) Prostate Cancer (SCT 792893861) 7) Hearing loss 8) Diabetes Mellitus Type 2 (SCT 00376912) 9) Onychomycosis 10) Squamous cell carcinoma of skin of ear 11) Polyp Colon (SCT 84536807) 12) Exposure to potentially hazardous substance 13) Internal haemorrhoids Active Outpatient Medications (including Supplies): Active Outpatient Medications Status 1) ATENOLOL 100MG TAB TAKE ONE TABLET BY MOUTH ONCE A DAY FOR ACTIVE HEART OR TO CONTROL BLOOD PRESSURE. DO NOT TAKE ANTACIDS OR CALCIUM SUPPLEMENTS WITHIN 2 HRS OF TAKING THIS MEDICATION. 2) BRIEF,PROTECTIVE SUPER ABS XLG ATTENDS USE 1 BRIEF TO ACTIVE AFFECTED AREA(S) TWICE DAILY NEEDED Indication: FOR INCONTINENCE 3) EMPAGLIFLOZIN 25MG TAB TAKE ONE TABLET BY MOUTH ONCE A DAY ACTIVE Indication: FOR DIABETES 4) FLUOROMETHOLONE 0.1% OPH SUSP INSTILL 1 DROP IN BOTH EYES ACTIVE FOUR TIMES A DAY - APPLY TO INSIDE OF LOWER LID. CLOSE EYE FOR 1-2 MINUTES AND ROLL EYEBALL IN ALL DIRECTIONS. Indication: FOR OCULAR INFLAMMATION 5) FLUOROURACIL 5% CREAM APPLY THIN FILM TO AFFECTED AREA(S) ACTIVE TWICE A DAY FOR 3 WEEKS APPLY TO ARMS AND HANDS. EXPECT A RED, BEEFY RASH TO TREATED AREAS. AVOID SUN EXPOSURE. FOLLOW DIRECTIONS CAREFULLY FOR PROPER HANDLING/DISPOSAL. 6) GLIMEPIRIDE 2MG TAB TAKE ONE-HALF TABLET BY MOUTH EVERY ACTIVE MORNING TAKE WITH BREAKFAST OR FIRST FOOD. Indication: FOR DIABETES 7) HYDRALAZINE HCL 25MG TAB TAKE ONE TABLET BY MOUTH THREE ACTIVE TIMES A DAY NEEDED FOR BLOOD PRESSURE IF SBP IS GREATER THAN 140 Indication: FOR HIGH BLOOD PRESSURE 8) HYDROCHLOROTHIAZIDE 25MG TAB TAKE ONE TABLET BY MOUTH ONCE A ACTIVE (S) DAY FOR BLOOD PRESSURE 9) LANCET,SOFTCLIX USE LANCET FOR BLOOD TEST TWO TIMES PER WEEK ACTIVE (S) TO MONITOR BLOOD SUGAR. USE DIRECTED. 10) METFORMIN HCL 1000MG TAB TAKE ONE TABLET BY MOUTH TWICE A ACTIVE (S) DAY WITH MEALS FOR BLOOD SUGAR CONTROL. TAKE WITH FOOD. AVOID ALCOHOL. DISCONTINUE BEFORE GETTING XRAY DYE. 11) OMEPRAZOLE 40MG EC CAP TAKE ONE CAPSULE BY MOUTH ONCE A DAY ACTIVE TAKE 30 MINUTES PRIOR TO FOOD. 12) PRAVASTATIN NA 40MG TAB TAKE ONE TABLET BY MOUTH EVERY ACTIVE EVENING Indication: FOR HIGH CHOLESTEROL 13) PROPYLENE GLYCOL 0.6% OPH SOLN INSTILL 1 DROP IN BOTH EYES ACTIVE FOUR TIMES A DAY Indication: FOR DRY EYE(S) Active Non-VA Medications Status 1) Non-VA FISH OIL 1000MG (500MG DHA/EPA) CAP 2000MG BY MOUTH ACTIVE TWICE A DAY 14 Total Medications Allergies: GEMFIBROZIL, LISINOPRIL, COLESTIPOL, SIMVASTATIN, [...] F [36.8 C] (03/12/2024 09:38) Respiratory Rate: 18 (09/10/2024 09:37) Pulse Rate: 64 (09/10/2024 09:38) Blood Pressure: 148/75 (09/10/2024 09:38) HT: 70.0 in [177.8 cm] (03/12/2024 09:38) WT: 220.8 lb [100.15 kg] (09/10/2024 09:37) BMI: 31.7 98% (09/10/2024 09:38) Physical Exam General: NAD noted, A&Ox3, [...] a day if blood pressure greater than 140; per recommendation of GI to start him on Coreg therefore will discontinue his atenolol in addition patient is unsure if he is actually been taking his losartan and has not been filled since July 2023 we will go ahead and restart that as long as his blood pressure tolerates again using the hydralazine only as needed Hyperlipidemia-we will try to start back on his review rosuvastatin let me know if he is having any issues with that and recheck his cholesterol level in 3 months Obesity - encouraged diet/exercise for weigh loss Prostate Cancer - s/p treatment no longer in surveillance; denies any issues. Hearing loss- has hearing aids History of cancer of eye- followed by ophthalmology Squamous cell carcinoma of skin of ear- no new lesions of concern SOB- mostlikely secondary to anemia chemical NM Mian Perf SPECT Stress test done in October 2022 normal Cirrhosis of the liver h/o Polyp Colon-followed by GI next appointment 09/20/2024. Ammonia level added to today's labs Internal pains with rectal AVMs-followed by GI Anemia-secondary to GI bleed will obtain a iron folate and B12 level today more than likely will be starting on iron supplementation Dementia-we will set up for an MRI I of the brain discussed with patient importance of blood pressure control; ammonia level added to labs will also start on Aricept after discussion of potential risk and benefits Exposure to potentially hazardous substance Stable. Discussed [...] appointments. Medications Reconciled. See AVS given to [place]. Time spent 30 minutes. /yane/ Maribel Arguello MD [facility] Signed: 09/10/2024 10:22 09/13/2024 ADDENDUM STATUS: COMPLETED Notify patient his Iron is very low and I have ordered him some ferrous sulfate to take BID and will repeat a CBC in 1 month. His amonia level is also a little elevated which will add to his confusion. I have sent these labs to his creative perfumer. /yane/ Maribel Arguello MD [facility] Signed: 09/13/2024 08:26 Receipt Acknowledged By: * AWAITING SIGNATURE * ADAM OMALLEY TAMMY [facility] Sep 10, 2024 09:39 AM PRIMARY CARE PROGRESS NOTE: LOCAL TITLE: PRIMARY CARE CLINIC PROGRESS NOTE PB STANDARD TITLE: PRIMARY CARE PROGRESS NOTE DATE OF NOTE: SEP 10, 2024@09:39 ENTRY DATE: SEP 10, 2024@09:40:03 AUTHOR: MARIBEL ARGUELLO EXP COSIGNER: URGENCY: STATUS: COMPLETED PRIMARY CARE CLINIC PROGRESS NOTE PB Has ADDENDA SUBJECTIVE: CLARITA SIERRA is a 74 years old MALE. HPI: Presents to the clinic today for a periodic health maintenance visit. Last seen March 12, 2024. He reports he continues to have some rectal bleeding he has been diagnosed with cirrhosis of the liver since our last visit noted on CT scan. In addition he had a EGD and colonoscopy last month through his creative perfumer. He did have esophageal varices in addition to colon polyps internal hemorrhoids and rectal AVMs. reports he is continuing to have lower GI bleeding and at times actually has to wear depends secondary to this. They have also noticed worsening short-term memory over the last several months. Non-VA Primary Care Provider None Specialty Services: Ophthalmology Dermatology, [facility], Dr. Rice ([facility]) FAMILY HX: Mother is , Alzheimer's age - 80s Father is , CVA age - 84 Sister- ? 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 Problem List 1) HTN - Hypertension (SNOMED CT 34818300) 2) HLD - Hyperlipidemia (SNOMED CT 06460150) 3) Obesity (SNOMED CT 515462528) 4) Fatty liver 5) History of cancer of eye 6) Prostate Cancer (SCT 986179960) 7) Hearing loss 8) Diabetes Mellitus Type 2 (SCT 61804823) 9) Onychomycosis 10) Squamous cell carcinoma of skin of ear 11) Polyp Colon (SCT 65526668) 12) Exposure to potentially hazardous substance 13) Internal haemorrhoids Active Outpatient Medications (including Supplies): Active Outpatient Medications Status 1) ATENOLOL 100MG TAB TAKE ONE TABLET BY MOUTH ONCE A DAY FOR ACTIVE HEART OR TO CONTROL BLOOD PRESSURE. DO NOT TAKE ANTACIDS OR CALCIUM SUPPLEMENTS WITHIN 2 HRS OF TAKING THIS MEDICATION. 2) BRIEF,PROTECTIVE SUPER ABS XLG ATTENDS USE 1 BRIEF TO ACTIVE AFFECTED AREA(S) TWICE DAILY NEEDED Indication: FOR INCONTINENCE 3) EMPAGLIFLOZIN 25MG TAB TAKE ONE TABLET BY MOUTH ONCE A DAY ACTIVE Indication: FOR DIABETES 4) FLUOROMETHOLONE 0.1% OPH SUSP INSTILL 1 DROP IN BOTH EYES ACTIVE FOUR TIMES A DAY - APPLY TO INSIDE OF LOWER LID. CLOSE EYE FOR 1-2 MINUTES AND ROLL EYEBALL IN ALL DIRECTIONS. Indication: FOR OCULAR INFLAMMATION 5) FLUOROURACIL 5% CREAM APPLY THIN FILM TO AFFECTED AREA(S) ACTIVE TWICE A DAY FOR 3 WEEKS APPLY TO ARMS AND HANDS. EXPECT A RED, BEEFY RASH TO TREATED AREAS. AVOID SUN EXPOSURE. FOLLOW DIRECTIONS CAREFULLY FOR PROPER HANDLING/DISPOSAL. 6) GLIMEPIRIDE 2MG TAB TAKE ONE-HALF TABLET BY MOUTH EVERY ACTIVE MORNING TAKE WITH BREAKFAST OR FIRST FOOD. Indication: FOR DIABETES 7) HYDRALAZINE HCL 25MG TAB TAKE ONE TABLET BY MOUTH THREE ACTIVE TIMES A DAY NEEDED FOR BLOOD PRESSURE IF SBP IS GREATER THAN 140 Indication: FOR HIGH BLOOD PRESSURE 8) HYDROCHLOROTHIAZIDE 25MG TAB TAKE ONE TABLET BY MOUTH ONCE A ACTIVE (S) DAY FOR BLOOD PRESSURE 9) LANCET,SOFTCLIX USE LANCET FOR BLOOD TEST TWO TIMES PER WEEK ACTIVE (S) TO MONITOR BLOOD SUGAR. USE DIRECTED. 10) METFORMIN HCL 1000MG TAB TAKE ONE TABLET BY MOUTH TWICE A ACTIVE (S) DAY WITH MEALS FOR BLOOD SUGAR CONTROL. TAKE WITH FOOD. AVOID ALCOHOL. DISCONTINUE BEFORE GETTING XRAY DYE. 11) OMEPRAZOLE 40MG EC CAP TAKE ONE CAPSULE BY MOUTH ONCE A DAY ACTIVE TAKE 30 MINUTES PRIOR TO FOOD. 12) PRAVASTATIN NA 40MG TAB TAKE ONE TABLET BY MOUTH EVERY ACTIVE EVENING Indication: FOR HIGH CHOLESTEROL 13) PROPYLENE GLYCOL 0.6% OPH SOLN INSTILL 1 DROP IN BOTH EYES ACTIVE FOUR TIMES A DAY Indication: FOR DRY EYE(S) Active Non-VA Medications Status 1) Non-VA FISH OIL 1000MG (500MG DHA/EPA) CAP 2000MG BY MOUTH ACTIVE TWICE A DAY 14 Total Medications Allergies: GEMFIBROZIL, LISINOPRIL, COLESTIPOL, SIMVASTATIN, [...] F [36.8 C] (03/12/2024 09:38) Respiratory Rate: 18 (09/10/2024 09:37) Pulse Rate: 64 (09/10/2024 09:38) Blood Pressure: 148/75 (09/10/2024 09:38) HT: 70.0 in [177.8 cm] (03/12/2024 09:38) WT: 220.8 lb [100.15 kg] (09/10/2024 09:37) BMI: 31.7 98% (09/10/2024 09:38) Physical Exam General: NAD noted, A&Ox3, [...] a day if blood pressure greater than 140; per recommendation of GI to start him on Coreg therefore will discontinue his atenolol in addition patient is unsure if he is actually been taking his losartan and has not been filled since July 2023 we will go ahead and restart that as long as his blood pressure tolerates again using the hydralazine only as needed Hyperlipidemia-we will try to start back on his review rosuvastatin let me know if he is having any issues with that and recheck his cholesterol level in 3 months Obesity - encouraged diet/exercise for weigh loss Prostate Cancer - s/p treatment no longer in surveillance; denies any issues. Hearing loss- has hearing aids History of cancer of eye- followed by ophthalmology Squamous cell carcinoma of skin of ear- no new lesions of concern SOB- mostlikely secondary to anemia chemical NM Mian Perf SPECT Stress test done in October 2022 normal Cirrhosis of the liver h/o Polyp Colon-followed by GI next appointment 09/20/2024. Ammonia level added to today's labs Internal pains with rectal AVMs-followed by GI Anemia-secondary to GI bleed will obtain a iron folate and B12 level today more than likely will be starting on iron supplementation Dementia-we will set up for an MRI I of the brain discussed with patient importance of blood pressure control; ammonia level added to labs will also start on Aricept after discussion of potential risk and benefits Exposure to potentially hazardous substance Stable. Discussed [...] appointments. Medications Reconciled. See AVS given to . Time spent 30 minutes. /yane/ Maribel Arguello MD [facility] Signed: 09/10/2024 10:22 09/10/2024 ADDENDUM STATUS: COMPLETED Please send copy of patient's latest labs to his creative perfumer, Dr. Rice ([facility]) /yane/ Maribel Arguello MD [facility] Signed: 09/10/2024 16:22 Receipt Acknowledged By: * AWAITING SIGNATURE * EDWIN CRAWFORD 09/13/2024 ADDENDUM STATUS: COMPLETED Notify patient his Iron is very low and I have ordered him some ferrous sulfate to take BID and will repeat a CBC in 1 month. His amonia level is also a little elevated which will add to his confusion. I have sent these labs to his creative perfumer. /yane/ Maribel Arguello MD [facility] Signed: 09/13/2024 08:26 Receipt Acknowledged By: * AWAITING SIGNATURE * ADAM OMALLEY [facility] Sep 10, 2024 09:08 AM PRIMARY CARE NURSING NOTE: LOCAL TITLE: PRIMARY CARE NURSING PROGRESS NOTE (TEXT) NURSING P STANDARD TITLE: PRIMARY CARE NURSING NOTE DATE OF NOTE: SEP 10, 2024@09:08 ENTRY DATE: SEP 10, 2024@09:08:23 AUTHOR: ADAM OMALLEY EXP COSIGNER: URGENCY: STATUS: COMPLETED Established Patient CLARITA SIERRA IS A 74 YEAR OLD MALE BEING SEEN IN CLINIC SEP 10, 2024. REASON FOR VISIT: The is here for 6 month follow up for DM and to go over labs. Having memory issues more and more over the last few months. Are you receiving care any where other than the [place]? No HEALTH AND SURGICAL HISTORY: Does patient report using home oxygen? No CURRENT ACTIVE MEDICATIONS FOR REVIEW: Allergies/ADRs (Tool #5) FACILITY ALLERGY/ADR -------- No Remote Allergy/ADR Data available for this patient [facility] COLESTIPOL [facility] GEMFIBROZIL [facility] LISINOPRIL [facility] LOVASTATIN [facility] NIACIN [facility] PRAVASTATIN [facility] SIMVASTATIN Med. Reconciliation (Tool #1) INCLUDED IN THIS LIST: Alphabetical list of active outpatient prescriptions dispensed from this AR (local) and dispensed from another AR or [facility]D facility (remote) as well as inpatient orders (local pending and active), local clinic medications, locally documented non-VA medications, and local prescriptions that have or been discontinued in the past 90 days. Non-VA Meds Last Documented On: Jan 04, 2015 NOTE The display of VA prescriptions dispensed from another AR or [facility] facility (remote) is limited to active outpatient prescription entries matched to National Drug File at the originating site and may not include some items such as investigational drugs, compounds, etc. NOT INCLUDED IN THIS LIST: Medications self-entered by the patient into personal health records (i.e. [facility]) are NOT included in this list. Non-VA medications documented outside this AR, remote inpatient orders (regardless of status) and remote clinic medications are NOT included in this list. The patient and provider must always discuss medications the patient is taking, regardless of where the medication was dispensed or obtained. OUTPT AMLODIPINE BESYLATE 10MG TAB (Status = ) TAKE ONE TABLET BY MOUTH ONCE A DAY TO LOWER BLOOD PRESSURE Rx# [id number] Last Released: 08/03/24 Qty/Days Supply: Rx Expiration Date: 08/26/24 Refills Remainin OUTPT ATENOLOL 100MG TAB (Status = Active) TAKE ONE TABLET BY MOUTH ONCE A DAY FOR HEART OR TO CONTROL BLOOD PRESSURE. DO NOT TAKE ANTACIDS OR CALCIUM SUPPLEMENTS WITHIN 2 HRS OF TAKING THIS MEDICATION. Rx# [id number] Last Released: 07/17/24 Qty/Days Supply: Rx Expiration Date: 09/16/24 Refills Remainin OUTPT COLON ELEC LAVAGE(EQV-MOVIPREP) FOR SOLN (Status = ) MIX AND DRINK CONTENTS OF KIT BY MOUTH ONE-TIME FOR BOWEL EMPTYING Rx# [id number] Last Released: 08/04/24 Qty/Days Supply: 07/07 Rx Expiration Date: 09/03/24 Refills Remainin Indication: FOR BOWEL EMPTYING OUTPT EMPAGLIFLOZIN 25MG TAB (Status = Active) TAKE ONE TABLET BY MOUTH ONCE A DAY FOR DIABETES Rx# [id number] Last Released: 08/25/24 Qty/Days Supply: 90 Rx Expiration Date: 03/13/25 Refills Remainin Indication: FOR DIABETES Non-VA FISH OIL 1000MG (500MG DHA/EPA) CAP TAKE 2 CAPSULES BY MOUTH TWICE A DAY Non-VA medication not recommended by VA provider. OUTPT FLUOROMETHOLONE 0.1% OPH SUSP (Status = Active) INSTILL 1 DROP IN BOTH EYES FOUR TIMES A DAY FOR OCULAR INFLAMMATION - APPLY TO INSIDE OF LOWER LID. CLOSE EYE FOR 1-2 MINUTES AND ROLL EYEBALL IN ALL DIRECTIONS. Rx# [id number] Last Released: 05/21/24 Qty/Days Supply: 05/05 Rx Expiration Date: 05/20/25 Refills Remainin Indication: FOR OCULAR INFLAMMATION OUTPT FLUOROURACIL 5% CREAM (Status = Active) APPLY THIN FILM TO AFFECTED AREA(S) TWICE A DAY FOR 3 WEEKS APPLY TO ARMS AND HANDS. EXPECT A RED, BEEFY RASH TO TREATED AREAS. AVOID SUN EXPOSURE. FOLLOW DIRECTIONS CAREFULLY FOR PROPER HANDLING/DISPOSAL. Rx# [id number] Last Released: 12/19/23 Qty/Days Supply: Rx Expiration Date: 11/18/24 Refills Remainin OUTPT GLIMEPIRIDE 2MG TAB (Status = Active) TAKE ONE-HALF TABLET BY MOUTH EVERY MORNING FOR DIABETES TAKE WITH BREAKFAST OR FIRST FOOD. Rx# [id number] Last Released: 06/15/24 Qty/Days Supply: 45/ Rx Expiration Date: 03/13/25 Refills Remainin Indication: FOR DIABETES OUTPT HYDRALAZINE HCL 25MG TAB (Status = Active) TAKE ONE TABLET BY MOUTH THREE TIMES A DAY NEEDED FOR BLOOD PRESSURE IF SBP IS GREATER THAN 140 Rx# [id number] Last Released: 08/27/24 Qty/Days Supply: 270/90 Rx Expiration Date: 12/08/24 Refills Remainin Indication: FOR HIGH BLOOD PRESSURE OUTPT HYDROCHLOROTHIAZIDE 25MG TAB (Status = Discontinued) TAKE ONE TABLET BY MOUTH ONCE A DAY FOR BLOOD PRESSURE Rx# [id number] Last Released: 07/14/24 Qty/Days Supply: Rx Expiration Date: 09/16/24 Refills Remainin OUTPT HYDROCHLOROTHIAZIDE 25MG TAB (Status = Active/Suspended) TAKE ONE TABLET BY MOUTH ONCE A DAY FOR BLOOD PRESSURE Rx# [id number] Last Released: Qt Supply: Rx Expiration Date: 08/14/25 Refills Remainin OUTPT METFORMIN HCL 1000MG TAB (Status = Active/Suspended) TAKE ONE TABLET BY MOUTH TWICE A DAY WITH MEALS FOR BLOOD SUGAR CONTROL. TAKE WITH FOOD. AVOID ALCOHOL. DISCONTINUE BEFORE GETTING XRAY DYE. Rx# [id number] Last Released: 08/16/24 Qty/Days Supply: Rx Expiration Date: 05/12/25 Refills Remainin OUTPT OMEPRAZOLE 40MG EC CAP (Status = Active) TAKE ONE CAPSULE BY MOUTH ONCE A DAY TAKE 30 MINUTES PRIOR TO FOOD. Rx# [id number] Last Released: 08/14/24 Qty/Days Supply: Rx Expiration Date: 11/09/24 Refills Remainin OUTPT PRAVASTATIN NA 40MG TAB (Status = Active) TAKE ONE TABLET BY MOUTH EVERY EVENING FOR HIGH CHOLESTEROL Rx# [id number] Last Released: 06/23/24 Qty/Days Supply: Rx Expiration Date: 09/16/24 Refills Remainin Indication: FOR HIGH CHOLESTEROL OUTPT PROPYLENE GLYCOL 0.6% OPH SOLN (Status = Active) INSTILL 1 DROP IN BOTH EYES FOUR TIMES A DAY FOR DRY EYE(S) Rx# [id number] Last Released: 05/21/24 Qty/Days Supply: 05/05 Rx Expiration Date: 05/20/25 Refills Remainin Indication: FOR DRY EYE(S) SUPPLIES OUTPT ACCU-CHEK GUIDE (GLUCOSE) TEST STRIP (Status = ) USE 1 STRIP FOR BLOOD TEST TWICE A DAY *ORAL THERAPY* Sep PATIENT REQUIRES ADDITIONAL STRIPS DUE TO: HYPERGLYCEMIA SCHEDULE: TWICE DAILY Rx# [id number] Last Released: 04/09/24 Qty/Days Supply: 200/90 Rx Expiration Date: 07/04/24 Refills Remainin OUTPT BRIEF,PROTECTIVE SUPER ABS XLG ATTENDS (Status = Active) USE 1 BRIEF TO AFFECTED AREA(S) TWICE DAILY NEEDED FOR INCONTINENCE Rx# [id number] Last Released: 04/06/24 Qty/Days Supply: 224/90 Rx Expiration Date: 04/06/25 Refills Remainin Indication: FOR INCONTINENCE OUTPT LANCET,SOFTCLIX (Status = Active) USE LANCET FOR BLOOD TEST TWO TIMES PER WEEK TO MONITOR BLOOD SUGAR. USE DIRECTED. Rx# [id number] Last Released: 04/30/24 Qty/Days Supply: 100/90 Rx Expiration Date: 04/29/25 Refills Remainin PHARMACY TERMS AND POSSIBLE PATIENT ACTIONS INPT = AR inpatient order IV = AR intravenous medication OUTPT = AR outpatient prescription PHARMACY POSSIBLE PATIENT TERMS EXPLANATION ACTIONS -------- -- ACTIVE A prescription that can be If you have refills, filled at the local [place] pharmacy. you may request a refill of this prescription from your [place] pharmacy. CLINIC A medication you received during If you have questions a visit to a [place] clinic or about this medication emergency department. contact your VA healthcare team. DISCONTINUED A prescription your provider has Contact your VA stopped. It is no longer healthcare team if you available to be sent to you or need more of this picked [facility] at the [facility] medication. window. A prescription which is [...] [facility] Or, it may be an [id number] (OTC), herbal, dietary supplements or sample medication. [...] An active prescription that is Contact your [place] not scheduled to be filled yet. pharmacy if you need You should receive it before this medication now. you run out. ====== Medication list reviewed with Patient Patient/Caregiver reports taking medications as ordered. IS PATIENT TAKING ANY OVER THE COUNTER MEDICATIONS, SUCH VITAMINS OR HERBAL SUPPLEMENTS, INCLUDING ANY MEDICATIONS PRESCRIBED BY ANOTHER PHYSICIAN? No Does patient have any new allergies to report since last visit? NO VITALS: TEMPERATURE: 98.3 F [36.8 C] (03/12/2024 09:38) BP: 129/76 (03/12/2024 09:38) RESP: 20 (03/12/2024 09:38) PULSE: 67 (03/12/2024 09:38) HT: 70.0 in [177.8 cm] (03/12/2024 09:38) WT: 227.9 lb [103.37 kg] (03/12/2024 09:38) BMI: 32.8 PAIN ASSESSMENT: (Most Recent Pain Score in Vitals Package: 3 (03/12/2024 09:38) ) The patient indicated that they and [...] Now let us serve you. At the [facility], we strive to provide you with exceptional [...] Not At All SPIRITUAL ASSESSMENT: Are there druze practices or spiritual concerns you want the field project manager, your physician, and other health care team members to immediately know about? No Patient advised to call the clinic for any concerns, questions, or symptoms. Patient and/or caregiver verbalized understanding of plan of care. Frail/Elderly Screen: ADL Screen - [place] Index of [place] in Activities of Daily Living Bathing: (3 Points) Receives no assistance (gets in and out of tub by self, if tub is usual means of bathing) Dressing: (3 Points) Gets clothes and gets completely dressed without assistance. Toileting: (3 Points) Goes to toilet room , cleans self, and arranges clothes without assistance (may use object for support such as cane, walker, or wheelchair, and may manage own night bedpan or commode, emptying same next morning) Transferring: (3 Points) Moves in and out of bed and in and out of chair without assistance (may be using object for support, such as cane or walker) Continence: (2 Points) Has occasional accidents or urination or bowels Feeding: (3 Points) Feeds self without assistance Total Score: 17 Points 18 = High (patient independent) 6 = Low (patient very dependent) IADL Screen - [place] Instrumental Activities of Daily Living Scale Ability to use telephone: (1 point) Dials a few well-known numbers. Shopping: (0 points) Needs to be accompanied on any shopping trip. Food preparation: (0 points) Needs to have meals prepared and served. Housekeeping: (0 points) Does not participate in any housekeeping tasks. Laundry: (0 points) All laundry must be done by others. Mode of transportation: (1 point) Travels independently on public transportation or drives own car. Responsibility for own medications: (1 point) Is responsible for taking medications in correct dosages at correct times. Ability to handle finances: (0 points) Incapable of handling money. Total score: 3 points 8 = High function, independent 0 = Low function, dependent Falls Screen: No falls within the past 12 months. Incontinence Screen: YES - Incontinence is a problem for this patient. Is urinary incontinence NEW for this patient? NO - Incontinence is NOT a new problem. What is the current treatment? Uses depends Suicide Screen - V: C-SSRS Screening [place] Suicide Severity Rating Scale (C-SSRS) screener 1. Over the past month, have you wished you were or wished you could go to sleep and not wake up? No 2. Over the past month, have you had any actual thoughts of killing yourself? No 3. Over the past month, have you been thinking about how you might do this? Response not required due to responses to other questions. 4. Over the past month, have you had these thoughts and had some intention of acting on them? Response not required due to responses to other questions. 5. Over the past month, have you started to work out or worked out the details of how to kill yourself? Response not required due to responses to other questions. 6. If yes, at any time in the past month did you intend to carry out this plan? Response not required due to responses to other questions. 7. In your lifetime, have you ever done anything, started to do anything, or prepared to do anything to end your life (for example, collected pills, obtained a gun, gave away valuables, went to the roof but didn't jump)? No 8. If YES, was this within the past 3 months? Response not required due to responses to other questions. Depression Screening - V: Perform PHQ-2 A PHQ-2 screen was performed. The score was 0 which is a negative screen for depression. Over the past two weeks, how often have you been bothered by the following problems? 1. Little interest or pleasure in doing things Not at all 2. Feeling down, depressed, or hopeless Not at all FALL RISK OP PB: BUBBA FALL RISK ASSESSMENT Have you experienced any falls within the last 12 months: 0 = No Secondary Dx: 0 = No Ambulatory Aid: 5 = Crutches/Walker/Cane Gait/Transferrin = Normal/Bedrest/Immobile Mental status: 0 = Oriented to own ability Medications: 0 = No high risk meds TOTAL SCORE: 5 Score <30 - patient IS NOT at risk for falls. No action at this time. Reassess annually or if needed. Fall Documentation No - Patient did not experience a fall within the last year RHS Screen - VS: RHS Screen Session Format: Face to Face Environmental Check Screening was not completed at this time due to: Another adult present COVID-19 Immunization - L,N,P,PH,U: Refused Moderna Monovalent COVID-19 vaccine Immunization: COVID-19 (MODERNA), MRNA, LNP-S, PF, 50 MCG/0.5 ML (AGES 12+ YEARS) Refusal Reason: PATIENT DECISION Patient refuses all immunization(s) in the COVID-19 group Date Documented: 09/10/24 15:07 Homelessness/Food Insecurity Screen - DI,L,N,P,PH,PS,S,U: In the past 2 months, have you been living in stable housing that you own, rent, or stay in as part of a household? Yes - Living in stable housing. Are you worried or concerned that in the next 2 months you may NOT have stable housing that you own, rent, or stay in as part of a household? No - Not worried about housing near future The reports the following: Within the past 12 months, you worried whether your food would run out before you got money to buy more. Never true Within the past 12 months, the food you bought just didn't last and you didn't have money to get more. Never true Influenza Immunization - L,N,P,PH,U: Deferral / Refusal The patient declines to receive the recommended dose of seasonal influenza vaccine. Immunization: INFLUENZA, UNSPECIFIED FORMULATION Refusal Reason: PATIENT DECISION Patient refuses all immunization(s) in the FLU group Date Documented: 09/10/24 15:07 Pneumococcal Conjugate Vaccine (PCV15/PCV20/PCV21) - L,N,P,PH,U: Refuses PCV vaccine Immunization: PNEUMOCOCCAL CONJUGATE, UNSPECIFIED FORMULATION Refusal Reason: PATIENT DECISION Patient refuses all immunization(s) in the PneumoPCV group Date Documented: 09/10/24 15:07 Pain Assessment: - PAIN ASSESSMENT: .. This patient's last pain assessment score was: 4 (09/10/2024 09:37). A detailed pain assessment showed the following: Pain characteristics (per patient's own words) Constant, Aching Location of current pain Generalize Joint Pain, Low Back, Generalized Muscle Pain Onset/Duration of the current pain. Constant or variable? More than a year Patient's self identified pain goal: 0 Patient/Nurse Interview: * * Patient stated that adequate information was received regarding the condition and/or treatment. Comment: If you have any questions please call the clinic Per [facility] Directive 1605.06, wristband documentation: Patient wristband was removed and destroyed by (staff name) Winifred Omalley RN and placed in the designated [employer] bin. /yane/ Adam Omalley RN,BSN SOLOMON Humphrey Signed: 09/10/2024 15:11 ADAM OMALLEY
--- OUTSIDE RECORDS SUMMARY | 2024-12-06 12:45 | XMS_ITS | Continuity of Care Document ---
Author Organization [facility] Address [address] [place] [id number] Care Team Providers Care Refrigeration Manager Name Role Phone ALBINO ARGUELLO Primary Care Physician [phone] Encounter MOPB_FIN [id number] Date(s): 12/02/24 - 12/06/[address] [id number]- Encounter Diagnosis S/P partial resection of colon(Discharge Diagnosis) - 12/06/24 Discharge Disposition: Home or Self Care Attending Physician: LAITH WOODWARD DO Admitting Physician: LAITH WOODWARD DO Allergies, Adverse Reactions, Alerts No Known Medication Allergies Assessment and Plan Extracted from: Title:Discharge Note Author:LAITH WOODWARD DO Ziyad e:12/06/24 S/P partial resection of colon (Acquired absence of other specified parts of digestive tract, Z90.49) Ordered: HYDROcodone-acetaminophen, 1 tab(s), Oral, [id number], PRN for pain, Acute postoperative pain, # 20 tab(s), 0 Refill(s), [facility], S/P partial resection of colon, 177.8, cm, 12/02/24 23:45:00 CDT, Patient Height, 101, kg, 12/02/24 23:45:00 CDT, Patient Weight... Orders: Bath Restrictions Post Discharge Diet Post Discharge Discharge Patient Driving Restrictions Patient and Caregiver Education Patient and Caregiver Education Patient and Caregiver Education Post Discharge Activity Remove Peripheral Saline Lock Wound Care Routine PDMP Review: Reviewed On: 12/06/24 08:44:17 By: LAITH WOODWARD DO Pain medications added status post surgery No Known Medication Allergies Bath Restrictions Post Discharge - Ordered -- 12/06/24 8:47:00 CDT, Stop date 12/06/24 8:47:00 CDT, May shower Diet Post Discharge (Regular Diet.) - Ordered -- 12/06/24 8:47:00 CDT, Regular Diet. Discharge Patient - Ordered -- 12/06/24 8:47:00 CDT, to Home/Self Care Driving Restrictions - Ordered -- 12/06/24 8:47:00 CDT, Cannot resume driving until cleared by surgeon Post Discharge Activity - Ordered -- 12/06/24 8:47:00 CDT, No heavy lifting Activity instruction sheet sent home with patient My office in 1 to 2 weeks Stable Home with self-care Extracted from: Title:Hospitalist Consult Note Author:SHEELA MERA MD Date:12/02/24 74 year old male with past m edical history of hypertension, type 2 diabetes mellitus Hsu cirrhosis, esophageal varices status post banding, dementia, skin cancer admitted postoperatively by Dr. Blanchard following right hemicolectomy and lysis of adhesions due to sessile tubular adenomas in ascending colon. He was noted to have approximately 500 cc estimated blood loss. Hospitalist service is consulted for medical management. and granddaughter are at bedside. Patient currently complains of severe abdominal pain, on review of systems reports cold intolerance, chronic loose stools and constipation intermittently. Patient denies any fevers, chills, chest pain, shortness of breath, nausea, vomiting, dysuria. 1. Status post right hemicolectomy: Due to tubular adenomas in the ascending colon. Management by primary team, [place] and Dilaudid as needed pain. Clear liquids started by primary team. 2. Anemia: Hb 8.2, estimated operative blood loss 500cc. Trend CBC, goal Hb >7. transfuse if needed 3. History of type 2 diabetes mellitus: Sliding scale, Accu-Cheks. Home metformin, Farxiga, glimepiride started by primary care. 4. History of hypertension: Home medications resumed, hold if blood pressure less than 120/80 5. History of Hsu cirrhosis: Patient's follows up with GI as an outpatient 6. History of dementia: Resume home medications DVT prophylaxis: SCDs bilaterally Thank you for including us in the care of your patient, we will continue to follow along with you Functional Status 12/05/24 ADLs Minimal assistance Medications amLODIPine 10 mg oral tablet = 1 tab(s), Oral, Daily, 0 Refill(s) Start Date: 08/04/24 Status: Ordered carvedilol 25 mg oral tablet TAKE 1 TABLET BY MOUTH TWICE DAILY Start Date: 10/12/24 Status: Ordered donepezil 10 mg oral tablet = 0.5 tab(s), Oral, Daily at Bedtime, # 30 tab(s), 0 Refill(s) Start Date: 12/02/24 Status: Ordered empagliflozin 25 mg oral tablet = 1 tab(s), Oral, QAM, 0 Refill(s) Start Date: 08/04/24 Status: Ordered glimepiride 2 mg oral tablet = 1 tab(s), Oral, Daily, 0 Refill(s) Start Date: 08/04/24 Status: Ordered hydrALAZINE 25 mg oral tablet = 1 tab(s), Oral, TID, 0 Refill(s) Start Date: 08/04/24 Status: Ordered hydroCHLOROthiazide 25 mg oral tablet = 1 tab(s), Oral, Daily, 0 Refill(s) Start Date: 08/04/24 Status: Ordered losartan 100 mg oral tablet = 1 tab(s), Oral, Daily, 0 Refill(s) Start Date: 08/04/24 Status: Ordered metFORMIN 1000 mg oral tablet = 1 tab(s), Oral, BID, 0 Refill(s) Start Date: 08/04/24 Status: Ordered [place] 7.5 mg-325 mg oral tablet 1 tab(s), Oral, [id number], PRN for pain, Acute postoperative pain, # 20 tab(s), 0 Refill(s), Pharmacy: [facility], S/P partial resection of colon, 177.8, cm, 12/02/24 23:45:00 CDT, Patient Height, 101, kg, 12/02/24 23:45:00 CDT, Patient Weight (kg) Start Date: 12/06/24 Stop Date: 12/13/24 Status: Ordered [place]-3 Fish Oil 1000 mg oral capsule = 1 cap(s), Oral, Daily, 0 Refill(s) Start Date: 08/04/24 Status: Ordered omeprazole 40 mg oral delayed release capsule = 1 cap(s), Oral, Daily, # 90 cap(s), 0 Refill(s), Pharmacy: [facility], 177.8, cm,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 2Added secondary to Mobility Assessment Documentation Procedures Procedure Date Related Diagnosis Body Site Status Colon Resection Low Anterior Robot Assisted (None) 1 12/02/24 Completed EGD Control Bleeding (None) 2 10/12/24 Completed Colonoscopy With Polypectomy (None) 3 08/11/24 Completed EGD With Biopsy (None) 4 08/11/24 Completed hemorrhoidectomy 2023 Complete d colonoscopy x2 2022 Completed bilateral cataract surgery 2021 Completed liver biopsy 2013 Completed right ankle crushed 1995 Compl eted port a cath insertion and removal Completed 1auto-populated from documented surgical case 2auto-populated from documented surgical case 3auto-populated from documented surgical case 4auto-populated from documented surgical case Results Laboratory List Name Date .Glucose POC Bedside 12/06/24 .Differential Automated 12/06/24 Complete Blood Count w/Diff Auto (CBC w/ Diff Auto) 12/06/24 Comprehensive Metabolic Profile (CMP) 12/06/24 Magnesium Serum 12/06/24 .Glucose POC Bedside 12/05/24 .Glucose POC Bedside 12/05/24 .Glucose POC Bedside 12/05/24 Complete Blood Count w/o Diff (CBC w/o D iff) 12/05/24 .Glucose POC Bedside 12/05/24 .Differential Automated 12/05/24 Complete Blood Count w/Diff Auto (CBC w/ Diff Auto) 12/05/24 Comprehensive Metabolic Profile (CMP) 12/05/24 Magnesium Serum 12/05/24 .Glucose POC Bedside 12/04/24 .Glucose POC Bedside 12/04/24 .Glucose POC Bedside 12/04/24 .Glucose POC Bedside 12/04/24 .Differential Automated 12/04/24 Complete Blood Count w/Diff Auto (CBC w/ Diff Auto) 12/04/24 Comprehensive Metabolic Profile (CMP) Magnesium Serum 12/04/24 .Glucose POC Bedside 12/03/24 .Glucose POC Bedside 12/03/24 Urinalysis w/Reflex Micro/Reflex Culture 12/03/24 .Glucose POC Bedside 12/03/24 .Differential Automated 12/03/24 Complete Blood Count w/Diff Auto (CBC w/ Diff Auto) 12/03/24 .Differential Automated 12/03/24 Basic Metabolic Profile w/Total Calcium 12/03/24 Complete Blood Count w/Diff Auto 12/03/24 .Differential Automated 12/02/24 Complete Blood Count w/Diff Auto (CBC w/ Diff Auto) 12/02/24 .Glucose POC Bedside 12/02/24 ABORh 12/02/24 Antibody Screen Gel 12/02/24 Red Blood Cells (Type and Crossmatch) Most recent to oldest [Reference Range]: 1 2 3 4 5 6 7 8 9 10 11 12 13 Dipstick Type? Auto *NA* (12/03/24 12:18 PM) Reflex Urine Culture? No *NA* (12/03/24 12:18 PM) Reflex Microscopic Type? Not Reqd *NA* (12/03/24 12:18 PM) eGFR [>=90 mL/min/1.73m ] 43 mL/min/1.73 m 1 *LOW* (12/06/24 3:26 AM) 30 mL/min/1.73 m 2 *LOW* (12/05/24 3:27 AM) 31 mL/min/1.7 3m 3 *LOW* (12/04/24 3:36 AM) 53 mL/m in/1 .73m 4 *LOW * (11/06 3:05 AM) nRBC% Auto 0 % *NA* (12/06/24 3:26 AM) 0 % *NA* (12/05/24 9:49 AM) 0 % *NA* (12/05/24 3:27 AM) 0 % *NA* (11/06 07/31 3:36 AM) 0 % *NA* (11/06 8:48 AM) 0 % *NA* (11/06 3:05 AM) 0 % *NA* (11/05 03/31 5:45 PM) nRBC# Auto 0 /100 WBC *NA* (12/06/24 3:26 AM) 0 /100 WBC *NA* (12/05/24 9:49 AM) 0 /100 WBC *NA* (12/05/24 3:27 AM) 0 /100 WBC *NA* (11/06 07/31 3:36 AM) 0 /100 WBC *NA* (11/06 8:48 AM) 0 /100 WBC *NA* (11/06 3:05 AM) 0 /100 WBC *NA* (11/05 03/31 5:45 PM) Donation Type Volunteer homologous (allogeneic ) donor (12/03/24 4:57 PM) Volunteer homologous (allogeneic ) donor (12/03/24 3:49 PM) Volunteer homologous (allogenei c) donor (12/03/24 1:02 PM) Blood Product Attributes Leukocytes Reduced (12/03/24 4:57 PM) Leukocytes Reduced (12/03/24 1:02 PM) User ID Marisel Larsen (12/03/24 4:57 PM) Marisel Larsen (12/03/24 3:49 PM) Marisel Larsen (12/03/24 1:02 PM) Secondary Identifier [id number] (12/03/24 4:57 PM) [id number] (12/03/24 1:02 PM) RBC [4.45-5.99] 2.64 *LOW* (12/06/24 3:26 AM) 3.26 *LOW* (12/05/24 9:49 AM) 3.08 *LOW* (12/05/24 3:27 AM) 3.49 *LOW * (11/06 07/31 3:36 AM) 2.70 *LOW * (11/06 8:48 AM) 2.60 *LOW * (11/06 3:05 AM) 2.89 *LOW * (11/05 03/31 5:45 PM) BUN [8-17 mg/dL] 42 mg/dL *HI* (12/06/24 3:26 AM) 45 mg/dL *HI* (12/05/24 3:27 AM) 32 mg/dL *HI* (12/04/24 3:36 AM) 18 mg/d L *HI* (11/06 3:05 AM) ABO/Rh B Pos *Unknown* (12/02/24 9:49 AM) Antibody Screen Gel Negative ABSC (12/02/24 9:49 AM) Product Ready RBC Yes (12/02/24 9:34 AM) Albumin [3.6-4.9 g/dL] 2.0 g/dL *LOW* (12/06/24 3:26 AM) 2.3 g/dL *LOW* (12/05/24 3:27 AM) 2.6 g/dL *LOW* (12/04/24 3:36 AM) Alkaline Phosphatase [51-135 U/L] 88 U/L (12/06/24 3:26 AM) 107 U/L (12/05/24 3:27 AM) 127 U/L (12/04/24 3:36 AM) ALT [31-64 U/L] 18 U/L *LOW* (12/06/24 3:26 AM) 30 U/L *LOW* (12/05/24 3:27 AM) 40 U/L (12/04/24 3:36 AM) Anion Gap [3.1-10.9 mmol/L] 9.0 mmol/L (12/06/24 3:26 AM) 10.0 mmol/L (12/05/24 3:27 AM) 11.0 mmol/L *HI* (12/04/24 3:36 AM) 13.0 mmol /L *HI* (11/06 3:05 AM) AST [16-36 U/L] 24 U/L (12/06/24 3:26 AM) 23 U/L (12/05/24 3:27 AM) 35 U/L (12/04/24 3:36 AM) Basophils# Auto [1.0-1.0] 0.0 *LOW* (12/06/24 3:26 AM) 0.0 *LOW* (12/05/24 3:27 AM) 0.0 *LOW* (12/04/24 3:36 AM) 0.0 *LOW * (11/06 8:48 AM) 0.0 *LOW * (11/06 3:05 AM) 0.1 *LOW * (11/05 03/31 5:45 PM) Basophils% Auto [1.0-4.0 %] 0.2 % *LOW* (12/06/24 3:26 AM) 0.1 % *LOW* (12/05/24 3:27 AM) 0.1 % *LOW* (12/04/24 3:36 AM) 0.1 % *LOW * (11/06 8:48 AM) 0.1 % *LOW * (11/06 3:05 AM) 0.7 % *LOW * (11/05 03/31 5:45 PM) Bili Total [0.1-0.9 mg/dL] 0.9 mg/dL (12/06/24 3:26 AM) 1.0 mg/dL *HI* (12/05/24 3:27 AM) 1.2 mg/dL *HI* (12/04/24 3:36 AM) BUN/Crea Ratio [6.01-19.99] 26.25 *HI* (12/06/24 3:26 AM) 20.45 *HI* (12/05/24 3:27 AM) 14.55 (12/04/24 3:36 AM) 12.8 6 (11/06 3:05 AM) Calcium [8.6-10.0 mg/dL] 8.1 mg/dL *LOW* (12/06/24 3:26 AM) 8.2 mg/dL *LOW* (12/05/24 3:27 AM) 8.2 mg/dL *LOW* (12/04/24 3:36 AM) 7.6 mg/d L *LOW * (11/06 3:05 AM) Creatinine [0.6-1.3 mg/dL] 1.6 mg/dL *HI* (12/06/24 3:26 AM) 2.2 mg/dL *HI* (12/05/24 3:27 AM) 2.2 mg/dL *HI* (12/04/24 3:36 AM) 1.4 mg/d L *HI* (11/06 3:05 AM) Eos# Auto [2.0-2.0] 0.0 *LOW* (12/06/24 3:26 AM) 0.0 *LOW* (12/05/24 3:27 AM) 0.0 *LOW* (12/04/24 3:36 AM) 0.0 *LOW * (11/06 8:48 AM) 0.0 *LOW * (11/06 3:05 AM) 0.0 *LOW * (11/05 03/31 5:45 PM) Eosinophils% Auto [1.0-2.0 %] 0.2 % *LOW* (12/06/24 3:26 AM) 0.1 % *LOW* (12/05/24 3:27 AM) 0.0 % *LOW* (12/04/24 3:36 AM) 0.0 % *LOW * (11/06 8:48 AM) 0.0 % *LOW * (11/06 3:05 AM) 0.2 % *LOW * (11/05 03/31 5:45 PM) Globulin 5 *NA* (12/06/24 3:26 AM) 5 *NA* (12/05/24 3:27 AM) 5 *NA* (12/04/24 3:36 AM) HCT [40.1-53.9 %] 23.6 % *LOW* (12/06/24 3:26 AM) 28.6 % *LOW* (12/05/24 9:49 AM) 26.7 % *LOW* (12/05/24 3:27 AM) 30.1 % *LOW * (11/06 07/31 3:36 AM) 24.6 % *LOW * (11/06 8:48 AM) 22.8 % *LOW * (11/06 3:05 AM) 25.6 % *LOW * (11/05 03/31 5:45 PM) Hgb [13.4-17.6 g/dL] 7.4 g/dL *LOW* (12/06/24 3:26 AM) 9.1 g/dL *LOW* (12/05/24 9:49 AM) 8.6 g/dL *LOW* (12/05/24 3:27 AM) 9.8 g/dL *LOW * (11/06 07/31 3:36 AM) 7.5 g/dL *LOW * (11/06 8:48 AM) 7.2 g/dL *LOW * (11/06 3:05 AM) 8.2 g/dL *LOW * (11/05 03/31 5:45 PM) Potassium [3.6-5.2 mEq/L] 3.6 mEq/L (12/06/24 3:26 AM) 3.4 mEq/L *LOW* (12/05/24 3:27 AM) 3.4 mEq/L *LOW* (12/04/24 3:36 AM) 3.6 mEq/ L (11/06 3:05 AM) Lymphocytes# Auto [2.0-4.0] 0.7 *LOW* (12/06/24 3:26 AM) 1.1 *LOW* (12/05/24 3:27 AM) 0.8 *LOW* (12/04/24 3:36 AM) 0.8 *LOW * (11/06 8:48 AM) 0.6 *LOW * (11/06 3:05 AM) 0.5 *LOW * (11/05 03/31 5:45 PM) Lymphocytes% Auto [22.0-50.0 %] 5.8 % *LOW* (12/06/24 3:26 AM) 5.4 % *LOW* (12/05/24 3:27 AM) 3.1 % *LOW* (12/04/24 3:36 AM) 3.2 % *LOW * (11/06 8:48 AM) 2.4 % *LOW * (11/06 3:05 AM) 6.0 % *LOW * (11/05 03/31 5:45 PM) MCH [27.1-32.9 pg] 28.0 pg (12/06/24 3:26 AM) 27.8 pg (12/05/24 9:49 AM) 28.1 pg (12/05/24 3:27 AM) 28.2 pg (11/06 07/31 3:36 AM) 27.8 pg (11/06 8:48 AM) 27.7 pg (11/06 3:05 AM) 28.2 pg (11/05 03/31 5:45 PM) MCHC [32.1-35.9] 31.3 *LOW* (12/06/24 3:26 AM) 31.8 *LOW* (12/05/24 9:49 AM) 32.4 (12/05/24 3:27 AM) 32.7 (11/06 07/31 3:36 AM) 30.4 *LOW * (11/06 8:48 AM) 31.7 *LOW * (11/06 3:05 AM) 31.9 *LOW * (11/05 03/31 5:45 PM) MCV [80.1-96.9 fL] 89.5 fL (12/06/24 3:26 AM) 87.5 fL (12/05/24 9:49 AM) 86.8 fL (12/05/24 3:27 AM) 86.2 fL (11/06 07/31 3:36 AM) 91.4 fL (11/06 8:48 AM) 87.4 fL (11/06 3:05 AM) 88.5 fL (11/05 03/31 5:45 PM) Monocytes# Auto [1.0-1.0] 0.7 *LOW* (12/06/24 3:26 AM) 1.1 *HI* (12/05/24 3:27 AM) 1.5 *HI* (12/04/24 3:36 AM) 1.4 *HI* (11/06 8:48 AM) 1.1 *HI* (11/06 3:05 AM) 0.2 *LOW * (11/05 03/31 5:45 PM) Monocytes% Auto [3.0-8.0 %] 5.8 % (12/06/24 3:26 AM) 5.4 % (12/05/24 3:27 AM) 5.9 % (12/04/24 3:36 AM) 5.5 % (11/06 8:48 AM) 4.7 % (11/06 3:05 AM) 2.0 % *LOW * (11/05 03/31 5:45 PM) Neutrophils# Auto [3.0-7.0] 10.6 *HI* (12/06/24 3:26 AM) 18.1 *HI* (12/05/24 3:27 AM) 23.5 *HI* (12/04/24 3:36 AM) 23.3 *HI* (11/06 8:48 AM) 21.8 *HI* (11/06 3:05 AM) 8.3 *HI* (11/05 03/31 5:45 PM) Neutrophils% Auto [38.0-69.0 %] 88.0 % *HI* (12/06/24 3:26 AM) 89.0 % *HI* (12/05/24 3:27 AM) 90.9 % *HI* (12/04/24 3:36 AM) 91.2 % 5 *HI* (11/06 8:48 AM) 92.8 % *HI* (11/06 3:05 AM) 91.1 % *HI* (11/05 03/31 5:45 PM) Plt Cnt [151-449 x10^3/mcL] 209 x10^3/mcL (12/06/24 3:26 AM) 344 x10^3/mcL (12/05/24 9:49 AM) 333 x10^3/mcL (12/04/24 3:36 AM) 290 x10^ 3/mc L (11/06 8:48 AM) 382 x10^ 3/mc L (11/05 03/31 5:45 PM) Plt Cnt [151-449 K/uL] 312 K/uL (12/05/24 3:27 AM) 240 K/uL 6 (12/03/24 3:05 AM) Prot Total [6.5-8.2 g/dL] 6.7 g/dL (12/06/24 3:26 AM) 7.1 g/dL (12/05/24 3:27 AM) 7.3 g/dL (12/04/24 3:36 AM) RDW [11.6-14.4 %] 19.1 % *HI* (12/06/24 3:26 AM) 18.6 % *HI* (12/05/24 9:49 AM) 18.4 % *HI* (12/05/24 3:27 AM) 17.9 % *HI* (11/06 07/31 3:36 AM) 19.2 % *HI* (11/06 8:48 AM) 18.8 % *HI* (11/06 3:05 AM) 19.0 % *HI* (11/05 03/31 5:45 PM) WBC [4.6-10.9 K/uL] 12.0 K/uL *HI* (12/06/24 3:26 AM) 17.4 K/uL *HI* (12/05/24 9:49 AM) 20.3 K/uL *HI* (12/05/24 3:27 AM) 25.8 K/uL *HI* (11/06 07/31 3:36 AM) 25.6 K/uL 7 *HI* (11/06 8:48 AM) 23.5 K/uL *HI* (11/06 3:05 AM) 9.1 K/uL (11/05 03/31 5:45 PM) Sodium [136-149 mmol/L] 141 mmol/L (12/06/24 3:26 AM) 141 mmol/L (12/05/24 3:27 AM) 135 mmol/L *LOW* (12/04/24 3:36 AM) 140 mmol /L (11/06 3:05 AM) Albumin/Globu jonas Ratio [1.01-2.49] 0.43 *LOW* (12/06/24 3:26 AM) 0.48 *LOW* (12/05/24 3:27 AM) 0.55 *LOW* (12/04/24 3:36 AM) Ca Corrected [8.6-10.0 mg/dL] 9.7 mg/dL (12/06/24 3:26 AM) 9.6 mg/dL (12/05/24 3:27 AM) 9.3 mg/dL (12/04/24 3:36 AM) Glucose [71-109 mg/dL] 174 mg/dL *HI* (12/06/24 3:26 AM) 164 mg/dL *HI* (12/05/24 3:27 AM) 191 mg/dL *HI* (12/04/24 3:36 AM) 121 mg/d L *HI* (11/06 3:05 AM) MPV [7.5-10.3 fL] 8.1 fL (12/06/24 3:26 AM) 7.8 fL (12/05/24 9:49 AM) 8.4 fL (12/04/24 3:36 AM) 8.5 fL (11/06 8:48 AM) 8.5 fL (11/05 03/31 5:45 PM) MPV [7.5-10.3] 7.8 (12/05/24 3:27 AM) 8.4 (12/03/24 3:05 AM) Chloride [96-109 mmol/L] 106 mmol/L (12/06/24 3:26 AM) 103 mmol/L (12/05/24 3:27 AM) 97 mmol/L (12/04/24 3:36 AM) 103 mmol /L (11/06 3:05 AM) Ur Appearance Cloudy *ABN* (12/03/24 12:18 PM) Ur Bili [Negative] Negative (12/03/24 12:18 PM) Ur Blood Trace *NA* (12/03/24 12:18 PM) Ur Collection Source Random Urine (12/03/24 12:18 PM) Ur Color Yellow (12/03/24 12:18 PM) Ur Glucose [Normal mg/dL] 500 mg/dL *ABN* (12/03/24 12:18 PM) Ur Ketone [Negative] Negative (12/03/24 12:18 PM) Ur Leukocyte Esterase [Negative] Negative (12/03/24 12:18 PM) Ur Nitrite [Negative] Negative (12/03/24 12:18 PM) Ur pH [5.0-9.0 pH Units] 5.0 pH Units (12/03/24 12:18 PM) Ur Specific [place] 1.023 *NA* (12/03/24 12:18 PM) Ur Urobilinogen [Normal] Normal (12/03/24 12:18 PM) Magnesium [1.90-2.30 mg/dL] 2.60 mg/dL *HI* (12/06/24 3:26 AM) 2.30 mg/dL (12/05/24 3:27 AM) 2.10 mg/dL (12/04/24 3:36 AM) Ur Protein [Negative mg/dL] 30 mg/dL (12/03/24 12:18 PM) Glu POC [place]ds[place] [65-90 mg/dL] 211 mg/dL 8 *HI* (12/06/24 11:41 AM) 259 mg/dL 9 *HI* (12/05/24 8:11 PM) 180 mg/dL 10 *HI* (12/05/24 4:57 PM) 194 mg/d L 11 *HI* (12/05 11:1 9 AM) 175 mg/d L 12 *HI* (12/05 6:01 AM) 165 mg/d L 13 *HI* (11/06 07/31 9:09 PM) 153 mg/d L 14 *HI* (11/06 07/31 4:01 PM) 217 mg/d L 15 *HI* (11/06 07/31 11:4 8 AM) 215 mg/d L 16 *HI* (11/06 07/31 6:01 AM) 209 mg/d L 17 *HI* (11/06 8:53 PM) 200 mg/d L 18 *HI* (11/06 4:03 PM) 165 mg/d L 19 *HI* (11/06 10:3 6 AM) 171 mg/d L 20 *HI* (11/05 03/31 10:5 6 AM) Carbon Dioxide [22-33 mmol/L] 26 mmol/L (12/06/24 3:26 AM) 28 mmol/L (12/05/24 3:27 AM) 27 mmol/L (12/04/24 3:36 AM) 24 mmol /L (11/06 3:05 AM) Osmol Calc [281-300 mOsm/kg] 296 mOsm/kg (12/06/24 3:26 AM) 296 mOsm/kg (12/05/24 3:27 AM) 282 mOsm/kg (12/04/24 3:36 AM) 283 mOsm /kg (11/06 3:05 AM) 1Interpretive Data: CKD is defined by the presence of glomerular filtration rate (GFR) <60 mL for>3 months and/or evidence of kidney damage (eg, structural abnormalities, histologic abnormalities, albuminuria, urinary sediment abnormalities, renal tubular disorders, and/or history of kidney tr ansplantation) for >3months. This table provides interpretation of specific eGFR values. Creatinine measurements, and therefore eGFR calculations, are affected by very high or very low muscle mass, muscle injury, a diet very high in meat, hepatic cirrhosis, certain drugs, etc. Stages of CKD: Stage Description GFR mL/min 1 Kidney damage with normal or increased GFR 90 2 Kidney damage with mild decrease in GFR 60 to 89 3 Moderate decrease in GFR 30 to 59 4 Severe decrease in GFR 15 to 29 5 Kidney failure <15 (or dialysis) Note: GFR Normal range >60, equation not validated for ages <18 and >70 and women. 2Interpretive Data: CKD is defined by the presence of glomerular filtration rate (GFR) <60 mL for>3 months and/or evidence of kidney damage (eg, structural abnormalities, histologic abnormalities, albuminuria, urinary sediment abnormalities, renal tubular disorders, and/or history of kidney tr ansplantation) for >3months. This table provides interpretation of specific eGFR values. Creatinine measurements, and therefore eGFR calculations, are affected by very high or very low muscle mass, muscle injury, a diet very high in meat, hepatic cirrhosis, certain drugs, etc. Stages of CKD: Stage Description GFR mL/min 1 Kidney damage with normal or increased GFR 90 2 Kidney damage with mild decrease in GFR 60 to 89 3 Moderate decrease in GFR 30 to 59 4 Severe decrease in GFR 15 to 29 5 Kidney failure <15 (or dialysis) Note: GFR Normal range >60, equation not validated for ages <18 and >70 and women. 3Interpretive Data: CKD is defined by the presence of glomerular filtration rate (GFR) <60 mL for>3 months and/or evidence of kidney damage (eg, structural abnormalities, histologic abnormalities, albuminuria, urinary sediment abnormalities, renal tubular disorders, and/or history of kidney tr ansplantation) for >3months. This table provides interpretation of specific eGFR values. Creatinine measurements, and therefore eGFR calculations, are affected by very high or very low muscle mass, muscle injury, a diet very high in meat, hepatic cirrhosis, certain drugs, etc. Stages of CKD: Stage Description GFR mL/min 1 Kidney damage with normal or increased GFR 90 2 Kidney damage with mild decrease in GFR 60 to 89 3 Moderate decrease in GFR 30 to 59 4 Severe decrease in GFR 15 to 29 5 Kidney failure <15 (or dialysis) Note: GFR Normal range >60, equation not validated for ages <18 and >70 and women. 4Interpretive Data: CKD is defined by the presence of glomerular filtration rate (GFR) <60 mL for>3 months and/or evidence of kidney damage (eg, structural abnormalities, histologic abnormalities, albuminuria, urinary sediment abnormalities, renal tubular disorders, and/or history of kidney tr ansplantation) for >3months. This table provides interpretation of specific eGFR values. Creatinine measurements, and therefore eGFR calculations, are affected by very high or very low muscle mass, muscle injury, a diet very high in meat, hepatic cirrhosis, certain drugs, etc. Stages of CKD: Stage Description GFR mL/min 1 Kidney damage with normal or increased GFR 90 2 Kidney damage with mild decrease in GFR 60 to 89 3 Moderate decrease in GFR 30 to 59 4 Severe decrease in GFR 15 to 29 5 Kidney failure <15 (or dialysis) Note: GFR Normal range >60, equation not validated for ages <18 and >70 and women. 5Result Comment: Results confirmed by manual slide review. sly Results consistent with patient's previous results y12/03/2024 09:32:42 CDT 6Result Comment: No clot Observed,12/03/2024 04:32:07 CDT,mm 7Result Comment: Results confirmed by manual slide review. sly Results consistent with patient's previous results y12/03/2024 09:32:42 CDT 8Result Comment: Copy Editor ID: [id number] 9Result Comment: Copy Editor ID: [id number] 10Result Comment: Copy Editor ID: [id number] 11Result Comment: Copy Editor ID: [id number] 12Result Comment: Copy Editor ID: [id number] 13Result Comment: Copy Editor ID: [id number] 14Result Comment: Copy Editor ID: [id number] 15Result Comment: Copy Editor ID: [id number] 16Result Comment: Copy Editor ID: [id number] 17Result Comment: Copy Editor ID: [id number] 18Result Comment: Copy Editor ID: [id number] 19Result Comment: Copy Editor ID: [id number] 20Result Comment: Copy Editor ID: [id number] Radiology Reports * Exam Date Time Procedure Performing Provider Status 12/04/24 8:34 AM XR Abdomen AP KUB Baldemar Soto Ultrasound Technol I; Auth (Verified) Notes: (XR Abdomen AP KUB DR) Reason For Exam: NGT verification;Other (please specify) REPORT EXAM: ABDOMEN HISTORY: Nasogastric tube placement COMPARISON: None. FINDINGS: Supine view of the abdomen is obtained. Nasogastric tube is satisfactorily positioned with the distal tip in the body of the stomach. IMPRESSION: Satisfactory positioning of nasogastric tube Final Signed by: ALEXANDER LOTT MD Signed (Electronic Signature): 12/04/2024 08:54 am CDT * Exam Date Time Procedure Performing Provider Status 12/04/24 5:23 AM XR Abdomen AP KUB Saba Lacey cloth bale header I; Auth (Verified) Notes: (XR Abdomen AP KUB DR) Reason For Exam: Nausea and vomiting REPORT EXAM: ABDOMEN ONE-VIEW History: Nausea vomiting FINDINGS: Gaseous distension of the stomach and small intestine measuring up to 4.8 cm. No pathologic calcifications. No obvious free intraperitoneal gas. Impression: Distension of small intestine and stomach. Correlate for possible small bowel obstruction. Final Signed by: NESSA ORDOÑEZ MD Signed (Electronic Signature): 12/04/2024 06:29 am CDT * Exam Date Time Procedure Performing Provider Status 12/03/24 8:09 AM XR Chest 1 V Portable aJzzy Chavez Area Director Of Home [facility] Sales; Auth (Verified) Notes: (XR Chest [address]) Reason For Exam: leukocytosis;Other (please specify) REPORT EXAM: CHEST RADIOGRAPH TECHNIQUE: Single frontal chest radiograph. HISTORY: Leukocytosis COMPARISON: None. FINDINGS: The lungs are clear without focal consolidation. No pleural effusion or pneumothorax. The cardiomediastinal silhouette, prabha and pulmonary vascular markings are within normal limits. Aortic calcifications. No acute osseous abnormality. IMPRESSION: 1. No acute cardiopulmonary process. Final Signed by: MONA ROBIN MD Signed (Electronic Signature): 12/03/2024 08:18 am CDT Vital Signs Most recent to oldest [Reference Range]: 1 2 Patient Height 177.8 cm (12/02/24 11:45 PM) 177.8 cm (12/02/24 11:45 PM) Patient Weight (kg) 101 kg (12/02/24 11:45 PM) 101 kg (12/02/24 11:45 PM) [place] Body Weight Calculated 73 kg (12/02/24 11:45 PM) BSA Measured 2.23 m2 (12/02/24 11:45 PM) Body Mass Index Measured 31.95 kg/m2 (12/02/24 11:45 PM) 31.95 kg/m2 (12/02/24 11:45 PM) Blood Pressure [95-120/59-81 mmHg] 140/7 7mmHg *HI* (12/06/24 9:46 AM) Mean Arterial Pressure, Cuff 98 mmHg (12/06/24 9:46 AM) Temperature Oral [96.6-99.6 DegF] 100.8 DegF *HI* (12/06/24 3:43 AM) Temperature Temporal Artery [97.6-100.6 DegF] 97.2 DegF *LOW* (12/02/24 8:10 PM) Oxygen Flow Rate 2 L/min (12/05/24 7:00 PM) FIO2 28 % (12/03/24 7:06 AM) SpO2 93 % (12/06/24 7:38 AM) Apical Heart Rate [59-101 bpm] 74 bpm (12/03/24 8:00 PM) Peripheral Pulse Rate [60-100 bpm] 91 bp m (12/06/24 7:38 AM) Heart Rate Monitored [60-100 bpm] 67 bpm (12/02/24 8:10 PM) Respiratory Rate [10-21 br/min] 15 br/mi n (12/06/24 7:38 AM) Advance Directives No (12/02/24 11:45 PM) No (12/02/24 9:45 AM) Pt requests addtl advance directive info No (12/02/24 11:45 PM) No (12/02/24 9:45 AM) Social History Social History Type Response Smoking Status Tobacco use status 3 0 days prior to admission No tobacco use of any form;Never (less than 100 in lifetime) entered on: 10/05/24 Sex Male Implantable Device List Procedure Provider Procedure Date Device Type Site EGD Control Bleeding Unknown 10/12/24 Unknown Unkn own Device Identifier Serial Number Lot or Batch Number Manufacturing Date Expiration Date Distinct Identification Code MRI Safety Implantable Status Assigning Authority Unknown Unknown [id number] Unknown Unknown Unknown Unknown Active Unknown Procedure Provider Procedure Date Device Type Site Colonoscopy With Polypectomy Unknown 08/11/24 Unknown Unknown Device Identifier Serial Number Lot or Batch Number Manufacturing Date Expiration Date Distinct Identification Code MRI Safety Implantable Status Assigning Authority Unknown Unknown [id number] Unknown Unknown Unknown Unknown Active Unknown Hospital Discharge Instructions Patient Education 12/02/2024 07:18:51 General Anesthesia, Adult, Care After General Anesthesia, Adult, Care After The following information offers guidance on how to care for yourself after your procedure. Your health care provider may also give you more specific instructions. If you have problems or questions, contact your health care provider. What can I expect after the procedure? After the procedure, it is common for people to: ??? Have pain or discomfort at the IV site. ??? Have nausea or vomiting. ??? Have a sore throat or hoarseness. ??? Have trouble concentrating. ??? Feel cold or chills. ??? Feel weak, sleepy, or tired (fatigue). ??? Have soreness and body aches. These can affect parts of the body that were not involved in surgery. Follow these instructions at home: For the time period you were told by your health care provider: ??? Rest. ??? Do not participate in activities where you could fall or become injured. ??? Do not drive or use machinery. ??? Do not drink alcohol. ??? Do not take sleeping pills or medicines that cause drowsiness. ??? Do not make important decisions or sign legal documents. ??? Do not take care of children on your own. General instructions ??? Drink enough fluid to keep your urine pale yellow. ??? If you have sleep apnea, surgery and certain medicines can increase your risk for breathing problems. Follow instructions from your health care provider about wearing your sleep device: ??? Anytime you are sleeping, including during daytime naps. ??? While taking prescription pain medicines, sleeping medicines, or medicines that make you drowsy. ??? Return to your normal activities as told by your health care provider. Ask your health care provider what activities are safe for you. ??? Take [id number]-[id number]-[id number] and prescription medicines only as told by your health care provider. ??? Do not use any products that contain nicotine or tobacco. These products include cigarettes, chewing tobacco, and vaping devices, such as e-cigarettes. These can delay incision healing after surgery. If you need help quitting, ask your health care provider. Contact a health care provider if: ??? You have nausea or vomiting that does not get better with medicine. ??? You vomit every time you eat or drink. ??? You have pain that does not get better with medicine. ??? You cannot urinate or have bloody urine. ??? You develop a skin rash. ??? You have a fever. Get help right away if: ??? You have trouble breathing. ??? You have chest pain. ??? You vomit blood. These symptoms may be an emergency. Get help right away. Call 911. ??? Do not wait to see if the symptoms will go away. ??? Do not drive yourself to the hospital. Summary ??? After the procedure, it is common to have a sore throat, hoarseness, nausea, vomiting, or to feel weak, sleepy, or fatigue. ??? For the time period you were told by your health care provider, do not drive or use machinery. ??? Get help right away if you have difficulty breathing, have chest pain, or vomit blood. These symptoms may be an emergency. This information is not intended to replace advice given to you by your health care provider. Make sure you discuss any questions you have with your health care provider. Document Revised: 09/20/2022 Document Reviewed: 09/20/2022 [employer] Patient Education ?? 2022 [employer]. Follow Up Care 11/25/2024 13:17:56 With:LAITH WOODWARD DO Address: When:1 to 2 weeks Consult note * SHEELA PEREIRA MD: PERFORM Event Display: Consultation Authored Date: [id number] Reason for Consultation medical management History of Present Illness 74 year old male with past medical history of hypertension, type 2 diabetes mellitus??Hsu cirrhosis,??esophageal varices status post??banding, dementia, skin cancer??admitted postoperatively by Dr. Blanchard??following??right hemicolectomy??and lysis of adhesions??due to??sessile tubular adenomas??in a scending colon.?He was noted to have approximately 500 cc??estimated blood loss. ??Hospitalist service is??consulted for medical management.?? and granddaughter are at bedside.?? Patient currently??complains of severe??abdominal pain,??on review of systems reports cold intolerance, chronic loose stools and constipation intermittently. ??Patient denies any fevers, chills, chest pain, shortness of breath, nausea, vomiting,??dysuria. Review of Systems Except as documented all systems reviewed and negative.?? Physical Exam General -pale elderly male, NAD, visibly uncomfortable HEENT- NCAT, EOMI, PERRL, oral mucous membranes dry Cardiovascular - RRR no m/r/g, no lower extremity edema, distal pulses intact Respiratory - CTAB, no use of accessory muscles. No wheezing, rales or ronchi Skin - No rashes, skin warm and dry, no erythematous areas Abdomen -mildly distended,??bowel sounds,??lower abdominal incision with dressing in place, periumbilical incision C/D/I Neurological - Alert and oriented x 3, mild hard of hearing Psych: normal mood and speech Assessment/Plan 74 year old male with past medical history of hypertension, type 2 diabetes mellitus??Hsu cirrhosis,??esophageal varices status post??banding, dementia, skin cancer??admitted postoperatively by Dr. Blanchard??following??right hemicolectomy??and lysis of adhesions??due to??sessile tubular adenomas??in a scending colon.?He was noted to have approximately 500 cc??estimated blood loss. ??Hospitalist service is??consulted for medical management.?? and granddaughter are at bedside.?? Patient currently??complains of severe??abdominal pain,??on review of systems reports cold intolerance, chronic loose stools and constipation intermittently. ??Patient denies any fevers, chills, chest pain, shortness of breath, nausea, vomiting,??dysuria. ?? 1.?? Status post right hemicolectomy:??Due to??tubular adenomas in the ascending colon.?? Management??by primary team,??[place] and Dilaudid as needed pain.?? Clear liquids started by primary team. ?? 2. Anemia: Hb 8.2, estimated operative blood loss 500cc. Trend CBC, goal Hb >7. transfuse if needed ?? 3. History of type 2 diabetes mellitus:??Sliding scale, Accu-Cheks.?? Home??metformin,??Farxiga, glimepiride started by primary care. ?? 4.?? History of hypertension: Home medications resumed, hold if blood pressure less than??120/80 ?? 5.?? History of Hsu cirrhosis:??Patient's follows up??with??GI as an outpatient ?? 6.?? History of dementia: Resume home medications ?? DVT prophylaxis: SCDs bilaterally ?? Thank you for including us in the care of your patient, we will continue to follow along with you ? Problem List/Past Medical History Ongoing Anxiety and depression Cirrhosis of liver Diabetes Esophageal varices Eye cancer Fatty liver Prostate cancer Skin cancer Historical No qualifying data Procedure/Surgical History ???Colon Resection Low Anterior Robot Assisted (None) (12/02/2024)???EGD BAND LIGATION ESOPHGEAL/GASTRIC VARICES (10/12/2024)???EGD Control Bleeding (None) (10/12/2024)???EGD TRANSORAL BIOPSY SINGLE/MULTIPLE (10/12/2024)???COLONOSCOPY W/BIOPSY SINGLE/MULTIPLE (08/11/2024)???Colonoscopy With Polypectomy (None) (08/11/2024)???COLSC FLX W/RMVL OF TUMOR POLYP LESION SNARE TQ (08/11/2024)???EGD BAND LIGATION ESOPHGEAL/GASTRIC VARICES (08/11/2024)???EGD TRANSORAL BIOPSY SINGLE/MULTIPLE (08/11/2024)???EGD With Biopsy (None) (08/11/2024)???hemorrhoidectomy (2023)???colonoscopy x2 (2022)???bilateral ca taract surgery (2021)???liver biopsy (2013)???right ankle crushed (1995)???port a cath insertion and removal Medications Inpatient amLODIPine, 10 mg= 1 tab(s), Oral, Daily carvedilol, 25 mg= 1 tab(s), Oral, BID D50W Injection, 12.5 gm= 25 mL, IV Push, As Indicated, PRN D50W Injection, 25 gm= 50 mL, IV Push, As Indicated, PRN dapagliflozin, 10 mg= 1 tab(s), Oral, Daily Dilaudid, 0.5 mg= 0.5 mL, IV Push, q2H, PRN donepezil, 10 mg= 2 tab(s), Oral, Daily at Bedtime glimepiride, 2 mg= 1 tab(s), Oral, Daily glucagon, 1 mg= 1 mL, IM, As Indicated, PRN HumaLOG sliding scale, Low-Dose, Subcutaneous, QID (WM and Bedtime) hydrALAZINE, 25 mg= 1 tab(s), Oral, TID hydroCHLOROthiazide, 25 mg= 1 tab(s), Oral, Daily losartan, 100 mg= 1 tab(s), Oral, Daily Maalox Antacid [place] Regular Strength, 30 mL, Oral, q4H, PRN metFORMIN, 1000 mg= 2 tab(s), Oral, BID [place] 7.5 mg-325 mg oral tablet, 1 tab(s), Oral, [id number], PRN NS ([place] - Transfusion), 250 mL, IV, One Time Unscheduled omega 3 fatty acids 1000 mg, 1000 mg, Oral, Daily pantoprazole, 40 mg= 1 tab(s), Oral, Daily Sodium Chloride 0.9% 1,000 mL, 1000 mL, IV Zofran, 4 mg= 2 mL, IV Push, [id number], PRN Home amLODIPine 10 mg oral tablet, 10 mg= 1 tab(s), Oral, Daily carvedilol 25 mg oral tablet donepezil 10 mg oral tablet, 5 mg= 0.5 tab(s), Oral, Daily at Bedtime empagliflozin 25 mg oral tablet, 25 mg= 1 tab(s), Oral, QAM glimepiride 2 mg oral tablet, 2 mg= 1 tab(s), Oral, Daily hydrALAZINE 25 mg oral tablet, 25 mg= 1 tab(s), Oral, TID hydroCHLOROthiazide 25 mg oral tablet, 25 mg= 1 tab(s), Oral, Daily losartan 100 mg oral tablet, 100 mg= 1 tab(s), Oral, Daily metFORMIN 1000 mg oral tablet, 1000 mg= 1 tab(s), Oral, BID [place]-3 Fish Oil 1000 mg oral capsule, 1000 mg= 1 cap(s), Oral, Daily omeprazole 40 mg oral delayed release capsule, 40 mg= 1 cap(s), Oral, Daily Allergies No Known Medication Allergies Social History Alcohol Past Home/Environment/Abuse Lives with Spouse, Granddaughters. Living situation: Home/Independent. Home equipment: None. Injuries/Abuse/Neglect in household: No. Abuse Concerns: No Signs or Symptoms. Neglect Concerns: No Signs or Symptoms. Risks in environment: No others declared. Marijuana Recreational Use Never smoker Nutrition/Health Regular diet Diet:. Psychosocial Denominational Sarah/Denomination:. No Hospital Clergy to Visit:. Do You Receive Comfort from Spiritual Practices: No. Substance Abuse Never Tobacco No tobacco use of any form, Never (less than 100 in lifetime) Lives with who is surrogate decision maker. Family History Alzheimer's disease: Mother. Stroke: Father. Lab Results Labs??(Last four charted values) WBC ?9.1?(DECEMBER 02) Hgb ?L??8.2?(DECEMBER 02) Hct ?L??25.6?(DECEMBER 02) Plt ?382?(DECEMBER 02) Electronically Signed on 12/02/2024 22:08 CDT SHEELA PEREIRA MD Progress note * DIAN ROUSE MD: MODIFY DIAN ROUSE MD: MODIFY Event Display: Progress Note Authored Date: Subjective Patient seen resting in bed. NG tube has been removed. Patient tolerating diet. General Surgery to discharge home today. Recommend patient continue home medications. Patient denies any questions or concerns at this time. Objective Vitals & Measurements T:??100.8?F??(Oral)?? TMIN:??97.5?F??(Oral)?? TMAX:??100.8?F??(Oral)?? HR:??91??(Peripheral)?? RR:??15?? BP:??140/77?? BP:??140/77(Sitting)?? SpO2:??93%?? Physical Exam General:??Alert and awake??no acute distress,??afebrile HNT: Normocephalic, atraumatic, mucous membranes moist. Normal exterior appearance.?? Neck: Atraumatic, supple, trachea midline Lungs: Respirations even and??non-labored??with equal chest rise/fall. Currently on??Room Air, Breath sounds are??clear??bilaterally Heart:?Regular?rate and rhythm. S1 and S2 Present with no murmur noted Vascular:??No??leg/pedal edema noted??BLE,??BLE pedal and posterior tibial pulses??palpable 1+. Abdomen:??Soft,??nontender,??nondistended, with??positive?bowel sounds x4 quadrants. Skin: Skin is??[place]??warm and dry with no rash or lesions noted Neurologic:??Alert and awake,Oriented??x3, clear and fluent speech Psychiatric: Cooperative, appropriate mood and affect Lab Results CBC WBC:??12 K/uL??High (12/06/24 03:26:00) RBC:??2.64??Low (12/06/24 03:26:00) Hgb:??7.4 g/dL??Low (12/06/24 03:26:00) HCT:??23.6 %??Low (12/06/24 03:26:00) MCV: 89.5 fL (12/06/24 03:26:00) MCH: 28 pg (12/06/24 03:26:00) MCHC:??31.3??Low (12/06/24 03:26:00) Plt Cnt: 209 x10^3/mcL (12/06/24 03:26:00) RDW:??19.1 %??High (12/06/24 03:26:00) MPV: 8.1 fL (12/06/24 03:26:00) ?? Differential Neutrophils% Auto:??88 %??High (12/06/24 03:26:00) Neutrophils# Auto:??10.6??High (12/06/24 03:26:00) Lymphocytes# Auto:??0.7??Low (12/06/24 03:26:00) Monocytes# Auto:??0.7??Low (12/06/24 03:26:00) Eos# Auto:??0??Low (12/06/24 03:26:00) Basophils# Auto:??0??Low (12/06/24 03:26:00) ?? BMP BUN:??42 mg/dL??High (12/06/24 03:26:00) Creatinine:??1.6 mg/dL??High (12/06/24 03:26:00) Calcium:??8.1 mg/dL??Low (12/06/24 03:26:00) Chloride: 106 mmol/L (12/06/24 03:26:00) Carbon Dioxide: 26 mmol/L (12/06/24 03:26:00) Sodium: 141 mmol/L (12/06/24 03:26:00) Potassium: 3.6 mEq/L (12/06/24 03:26:00) Albumin:??2 g/dL??Low (12/06/24 03:26:00) Glucose:??174 mg/dL??High (12/06/24 03:26:00) ?? Trends Labs??(Last four charted values) WBC ?H??12.0?(DEC 06)?H??17.4?(DEC 05)?H??20.3?(DEC 05)?H??25.8?(DECEMBER 04) Hgb ?L??7.4?(DEC 06)?L??9.1?(DEC 05)?L??8.6?(DEC 05)?L??9.8?(DECEMBER 04) Hct ?L??23.6?(DEC 06)?L??28.6?(DEC 05)?L??26.7?(DEC 05)?L??30.1?(DECEMBER 04) Plt ?209?(DEC 06)?344?(DEC 05)?312?(DEC 05)?333?(DECEMBER 04) Na ?141?(DEC 06)?141?(DEC 05)?L??135?(DECEMBER 04)?140?(DECEMBER 03) K ?3.6?(DEC 06)?L??3.4?(DEC 05)?L??3.4?(DECEMBER 04)?3.6?(DECEMBER 03) CO2 ?26?(DEC 06)?28?(DEC 05)?27?(DECEMBER 04)?24?(DECEMBER 03) Cl ?106?(DEC 06)?103?(DEC 05)?97?(DECEMBER 04)?103?(DECEMBER 03) Cr ?H??1.6?(DEC 06)?H??2.2?(DEC 05)?H??2.2?(DECEMBER 04)?H??1.4?(DECEMBER 03) BUN ?H??42?(DEC 06)?H??45?(DEC 05)?H??32?(DECEMBER 04)?H??18?(DECEMBER 03) Glucose ?H??174?(DEC 06)?H??164?(DEC 05)?H??191?(DECEMBER 04)?H??121?(DECEMBER 03) Mg ?H??2.60?(DEC 06)?2.30?(DEC 05)?2.10?(DECEMBER 04) Ca ?L??8.1?(DEC 06)?L??8.2?(DEC 05)?L??8.2?(DECEMBER 04)?L??7.6?(DECEMBER 03) Diagnostic Results XR Diagnostics ?? XR Abdomen AP KUB DR ?? 12/04/24 08:43:53 EXAM: ABDOMEN ? HISTORY: Nasogastric tube placement ?? COMPARISON: None. ?? FINDINGS: Supine view of the abdomen is obtained. Nasogastric tube is satisfactorily positioned with the distal tip in the body of the stomach. ?? IMPRESSION: Satisfactory positioning of nasogastric tube ?? Signed By: ALEXANDER LOTT MD ?? XR Chest [address] ?? 12/03/24 08:13:27 EXAM: CHEST RADIOGRAPH ? TECHNIQUE: Single frontal chest radiograph. ?? HISTORY: Leukocytosis ?? COMPARISON: None. ?? FINDINGS: The lungs are clear without focal consolidation. No pleural effusion or pneumothorax. The cardiomediastinal silhouette, prabha and pulmonary vascular markings are within normal limits. Aortic calcifications. No acute osseous abnormality. ?? IMPRESSION: 1. No acute cardiopulmonary process. ?? Signed By: MONA ROBIN MD ?? Computed Tomagraphy [Current Encounter]?? No qualifying data available. Medications Inpatient carvedilol, 12.5 mg= 2 tab(s), Oral, BID D50W Injection, 12.5 gm= 25 mL, IV Push, As Indicated, PRN D50W Injection, 25 gm= 50 mL, IV Push, As Indicated, PRN Dilaudid, 0.5 mg= 0.5 mL, IV Push, q2H, PRN donepezil, 10 mg= 2 tab(s), Oral, Daily at Bedtime glucagon, 1 mg= 1 mL, IM, As Indicated, PRN HumaLOG sliding scale, Low-Dose, Subcutaneous, QID (WM and Bedtime) hydrALAZINE, 25 mg= 1 tab(s), Oral, TID Maalox Antacid [place] Regular Strength, 30 mL, Oral, q4H, PRN Mag-Ox 400 - electrolyte replacement, 400 mg= 1 tab(s), Oral, BID, PRN Mag-Ox 400 - electrolyte replacement, 800 mg= 2 tab(s), Oral, BID, PRN magnesium sulfate - electrolyte replacement, 1 gm= 100 mL, IV Piggyback, As Indicated, PRN magnesium sulfate - electrolyte replacement, 2 gm= 50 mL, IV Piggyback, As Indicated, PRN [place] 7.5 mg-325 mg oral tablet, 1 tab(s), Oral, [id number], PRN NS with KCl 20 mEq/L 1,000 mL, 1000 mL, IV omega 3 fatty acids 1000 mg, 1000 mg, Oral, Daily pantoprazole, 40 mg, IV Push, BID Phenergan potassium chloride - electrolyte replacement, 20 mEq= 1 tab(s), Oral, q4H, PRN potassium chloride - electrolyte replacement, 10 mEq= 100 mL, IV Piggyback, Hourly, PRN potassium chloride - electrolyte replacement, 20 mEq= 1 tab(s), Oral, q4H, PRN potassium chloride - electrolyte replacement, 10 mEq= 100 mL, IV Piggyback, Hourly, PRN Reglan, 5 mg= 1 mL, IV, q6H Zofran, 4 mg= 2 mL, IV Push, [id number], PRN Assessment/Plan S/P partial resection of colon (Acquired absence of other specified parts of digestive tract, Z90.49) ?? 74 year old male with past medical history of hypertension, type 2 diabetes mellitus??Hsu cirrhosis,??esophageal varices status post??banding, dementia, skin cancer??admitted postoperatively by Dr. Blanchard??following??right hemicolectomy??and lysis of adhesions??due to??sessile tubular adenomas??in a scending colon.?He was noted to have approximately 500 cc??estimated blood loss. ??Hospitalist service is??consulted for medical management.?? and granddaughter are at bedside.?? Patient currently??complains of severe??abdominal pain,??on review of systems reports cold intolerance, chronic loose stools and constipation intermittently. ??Patient denies any fevers, chills, chest pain, shortness of breath, nausea, vomiting,??dysuria. [1] ?? Postoperative ileus--Being managed by General Surgery. NGT discontinued yesterday. ??Patient tolerating oral intake.?? Having BM and passing flatus ?? Acute kidney injury--No retention??noted. ?? UA negative.??Continue??PO hydration. ?? Leukocytosis--Improved. ?? CXR and UA negative. Trend. Incentive spirometry encouraged. ?? Status post right hemicolectomy:??Due to??tubular adenomas in the ascending colon.?? Management??byprimary team,??[place] and Dilaudid as needed pain.? Acute blood loss Anemia:?? General surgery??ordered 2 units PRBC,??given??post operatively. ?? History of type 2 diabetes mellitus:??Sliding scale, Accu-Cheks.?? Hold??metformin,??Farxiga, glimepiride??due to JETT.??Continue SSI.? History of hypertension: Home medications resumed, hold if blood pressure less than??120/80. Hold diuretics. ?? History of Hsu cirrhosis:??Patient's follows up??with??GI as an outpatient ?? History of dementia: Continuehome medications ?? DVT prophylaxis: SCDs bilaterally ?? Thank you for including us in the care of your patient, we will continue to follow along with you ?? Further orders as the clinical course dictates. ?? INDIRECT SUPERVISION:?? The patient was seen only by the non-physician provider.?? The attending physician has reviewed the [employer] or PA's documentation, treatment plan, and medical decision making. Electronically Signed on 12/06/2024 12:59 CDT CARLOMadaySTEPHANANDREW Baldemar [employer] Electronically Signed on 12/06/2024 12:59 CDT DIAN ROUSE MD Modified by: DIAN ROUSE MD on 12/06/2024 12:59 CDT * CONCHIS HENRY [employer]: PERFORM RACHEL QUARLES MD: MODIFY Event Display: Progress Note Authored Date: [id number] Subjective Patient is seen at the bedside today. He is resting in bed. NGT remains intact. He reports feeling better. Passing flatus and had a BM today. Objective Vitals & Measurements T:??98.1?F??(Oral)?? T:??98.1?F??(Oral)?? TMIN:??96.8?F??(Oral)?? TMAX:??98.2?F??(Oral)?? HR:??105??(Peripheral)?? RR:??20?? BP:??154/81?? BP:??154/81(Sitting)?? SpO2:??89%?? Physical Exam HEENT: Normocephalic, atraumatic, mucous membranes are moist, lids are without external lesions Cardiovascular:??Regular rate and rhythm Respiratory:??Lungs clear to auscultation bilaterally respirations even unlabored Gastrointestinal: Abdomen soft nontender NGT intact with brown drainage Skin: Warm dry color within normal limits Neurological: Alert and oriented x3 without focal deficits Psychiatric: Calm and cooperative ?? Lab Results All Labs [Within the Last 24 Hours] WBC:??17.4 K/uL??High (12/05/24 09:49:00) RBC:??3.26??Low (12/05/24 09:49:00) Hgb:??9.1 g/dL??Low (12/05/24 09:49:00) HCT:??28.6 %??Low (12/05/24 09:49:00) MCH: 27.8 pg (12/05/24 09:49:00) MCHC:??31.8??Low (12/05/24 09:49:00) MCV: 87.5 fL (12/05/24 09:49:00) Plt Cnt: 344 x10^3/mcL (12/05/24 09:49:00) MPV: 7.8 fL (12/05/24 09:49:00) RDW:??18.6 %??High (12/05/24 09:49:00) Neutrophils% Auto:??89 %??High (12/05/24 03:27:00) Lymphocytes% Auto:??5.4 %??Low (12/05/24 03:27:00) Monocytes% Auto: 5.4 % (12/05/24 03:27:00) Basophils% Auto:??0.1 %??Low (12/05/24 03:27:00) Eosinophils% Auto:??0.1 %??Low (12/05/24 03:27:00) Neutrophils# Auto:??18.1??High (12/05/24 03:27:00) Lymphocytes# Auto:??1.1??Low (12/05/24 03:27:00) Monocytes# Auto:??1.1??High (12/05/24 03:27:00) Basophils# Auto:??0??Low (12/05/24 03:27:00) Eos# Auto:??0??Low (12/05/24 03:27:00) nRBC% Auto: 0 % (12/05/24 09:49:00) nRBC# Auto: 0 /100 WBC (12/05/24 09:49:00) Glu POC [place]:??194 mg/dL??High (12/05/24 11:19:00) Sodium: 141 mmol/L (12/05/24 03:27:00) Potassium:??3.4 mEq/L??Low (12/05/24 03:27:00) Chloride: 103 mmol/L (12/05/24 03:27:00) Carbon Dioxide: 28 mmol/L (12/05/24 03:27:00) BUN:??45 mg/dL??High (12/05/24 03:27:00) Creatinine:??2.2 mg/dL??High (12/05/24 03:27:00) eGFR:??30 mL/min/1.73m?Low (12/05/24 03:27:00) Glucose:??164 mg/dL??High (12/05/24 03:27:00) Calcium:??8.2 mg/dL??Low (12/05/24 03:27:00) Ca Corrected: 9.6 mg/dL (12/05/24 03:27:00) Anion Gap: 10 mmol/L (12/05/24 03:27:00) BUN/Crea Ratio:??20.45??High (12/05/24 03:27:00) Alkaline Phosphatase: 107 U/L (12/05/24 03:27:00) AST: 23 U/L (12/05/24 03:27:00) ALT:??30 U/L??Low (12/05/24 03:27:00) Bili Total:??1 mg/dL??High (12/05/24 03:27:00) Albumin:??2.3 g/dL??Low (12/05/24 03:27:00) Globulin: 5 (12/05/24 03:27:00) Prot Total: 7.1 g/dL (12/05/24 03:27:00) Albumin/Globulin Ratio:??0.48??Low (12/05/24 03:27:00) Osmol Ca mOsm/kg (12/05/24 03:27:00) Magnesium: 2.3 mg/dL (12/05/24 03:27:00) Diagnostic Results Diagnostic Radiology [Within the Last 24 Hours]?? No qualifying data available. Magnetic Resonance Imaging [Within the Last 24 Hours]?? No qualifying data available. Computed Tomography [Within the Last 24 Hours]?? No qualifying data available. recent EKG ?? EKG Report ?? 11/30/24 12:24:34 [facility] ?? 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 : 1950 Requested By: Order Number: [id number] Reading MD: Marshal Lr Measurements Intervals [place] Rate: 70 P: 10 MS: 166 QRS: 34 QRSD: 88 T: 56 QT: 452 QTc: 488 Interpretive Statements Normal sinus rhythm Prolonged QT No previous ECG available for comparison I REVIEWED AND AGREE WITH THE ABOVE FINDINGS. Electronically Signed On 12-02-2024 19:23:49 CDT by Marshal Lr ?? Signed By: MARSHAL LR MD Ultrasound [Within the Last 24 Hours]?? No qualifying data available. Nuclear Medicine [Within the Last 24 Hours]?? No qualifying data available. Medications Inpatient carvedilol, 12.5 mg= 2 tab(s), Oral, BID D50W Injection, 12.5 gm= 25 mL, IV Push, As Indicated, PRN D50W Injection, 25 gm= 50 mL, IV Push, As Indicated, PRN Dilaudid, 0.5 mg= 0.5 mL, IV Push, q2H, PRN donepezil, 10 mg= 2 tab(s), Oral, Daily at Bedtime glucagon, 1 mg= 1 mL, IM, As Indicated, PRN HumaLOG sliding scale, Low-Dose, Subcutaneous, QID (WM and Bedtime) hydrALAZINE, 25 mg= 1 tab(s), Oral, TID Maalox Antacid [place] Regular Strength, 30 mL, Oral, q4H, PRN Mag-Ox 400 - electrolyte replacement, 400 mg= 1 tab(s), Oral, BID, PRN Mag-Ox 400 - electrolyte replacement, 800 mg= 2 tab(s), Oral, BID, PRN magnesium sulfate - electrolyte replacement, 1 gm= 100 mL, IV Piggyback, As Indicated, PRN magnesium sulfate - electrolyte replacement, 2 gm= 50 mL, IV Piggyback, As Indicated, PRN [place] 7.5 mg-325 mg oral tablet, 1 tab(s), Oral, [id number], PRN NS with KCl 20 mEq/L 1,000 mL, 1000 mL, IV omega 3 fatty acids 1000 mg, 1000 mg, Oral, Daily pantoprazole, 40 mg, IV Push, BID Phenergan potassium chloride - electrolyte replacement, 20 mEq= 1 tab(s), Oral, q4H, PRN potassium chloride - electrolyte replacement, 10 mEq= 100 mL, IV Piggyback, Hourly, PRN potassium chloride - electrolyte replacement, 20 mEq= 1 tab(s), Oral, q4H, PRN potassium chloride - electrolyte replacement, 10 mEq= 100 mL, IV Piggyback, Hourly, PRN Reglan, 5 mg= 1 mL, IV, q6H Zofran, 4 mg= 2 mL, IV Push, [id number], PRN Assessment/Plan Ordered: pantoprazole, 40 mg, Powder-Inj, IV Push, BID, Routine, First Dose: 12/05/24 10:00:00 CDT ? History of Present Illness 74 year old male with past medical history of hypertension, type 2 diabetes mellitus??Hsu cirrhosis,??esophageal varices status post??banding, dementia, skin cancer??admitted postoperatively by Dr. Blanchard??following??right hemicolectomy??and lysis of adhesions??due to??sessile tubular adenomas??in a scending colon.?He was noted to have approximately 500 cc??estimated blood loss. ??Hospitalist service is??consulted for medical management.?? and granddaughter are at bedside.?? Patient currently??complains of severe??abdominal pain,??on review of systems reports cold intolerance, chronic loose stools and constipation intermittently. ??Patient denies any fevers, chills, chest pain, shortness of breath, nausea, vomiting,??dysuria. [1] ? Postoperative ileus--Being managed by General Surgery. NGT intact planned for clamping trial today. ?? Acute kidney injury--No retention??noted. ?? UA negative.??Continue IVF hydration. ?? Leukocytosis--Improved. ?? CXR and UA negative. Trend. Incentive spirometry encouraged. ?? Status post right hemicolectomy:??Due to??tubular adenomas in the ascending colon.?? Management??byprimary team,??[place] and Dilaudid as needed pain.?Acute blood loss Anemia:?? General surgery??ordered 2 units PRBC,??given??post operatively. ?History of type 2 diabetes mellitus:??Sliding scale, Accu-Cheks.?? Hold??metformin,??Farxiga, glimepiride??due to JETT.??Continue SSI.?History of hypertension: Home medications resumed, hold if blood pressure less than??120/80. Holddiuretics. ?History of Hsu cirrhosis:??Patient's follows up??with??GI as an outpatient ?History of dementia: Resume home medications ?? DVT prophylaxis: SCDs bilaterally ?? Thank you for including us in the care of your patient, we will continue to follow along with you ?? Further orders as the clinical course dictates ?? INDIRECT SUPERVISION:?? The patient was seen only by the non-physician provider.?? The attending physician has reviewed the [employer] or PA's documentation, treatment plan, and medical decision making. [1]??Hospitalist Consult Note; SHEELA PEREIRA MD 12/02/2024 21:54 CDT Electronically Signed on 12/05/2024 12:02 CDT CONCHIS HENYR [employer] Electronically Signed on 12/05/2024 13:36 CDT RACHEL QUARLES MD Modified by: RACHEL QUARLES MD on 12/05/2024 13:36 CDT * MILTON NGO MD: PERFORM Event Display: Progress Note Authored Date: [id number] Subjective Patient had no acute events overnight. Afebrile, VSS, satting well.??Feels better compared to yesterday. NGT with 500 cc output since last night, bilious. Patient had a large BM, passing flatus. Ambulated. Hgb stable, wbc down today. Creatinine still at 2.2, same as yesterday. ?? Objective Vitals & Measurements T:??98.1?F??(Oral)?? T:??98.1?F??(Oral)?? TMIN:??96.8?F??(Oral)?? TMAX:??98.2?F??(Oral)?? HR:??105??(Peripheral)?? RR:??20?? BP:??154/81?? BP:??154/81(Sitting)?? SpO2:??89%?? Physical Exam Constitutional: no acute distress. NGT in place Head: normocephalic and atraumatic. Cardiovascular: no murmurs. Lungs: normal effort. Clear auscultation Abdomen: soft,??minimally distended, and not tender, no guarding or RT. Incisions: all c/d/i Musculoskeletal: grossly intact Neurologic: AO x 3 Psychiatric: good judgement and insight. Extremities: no edema. Skin: grossly intact Lab Results All Labs [Within the Last 24 Hours] WBC:??17.4 K/uL??High (12/05/24 09:49:00) RBC:??3.26??Low (12/05/24 09:49:00) Hgb:??9.1 g/dL??Low (12/05/24 09:49:00) HCT:??28.6 %??Low (12/05/24 09:49:00) MCH: 27.8 pg (12/05/24 09:49:00) MCHC:??31.8??Low (12/05/24 09:49:00) MCV: 87.5 fL (12/05/24 09:49:00) Plt Cnt: 344 x10^3/mcL (12/05/24 09:49:00) MPV: 7.8 fL (12/05/24 09:49:00) RDW:??18.6 %??High (12/05/24 09:49:00) Neutrophils% Auto:??89 %??High (12/05/24 03:27:00) Lymphocytes% Auto:??5.4 %??Low (12/05/24 03:27:00) Monocytes% Auto: 5.4 % (12/05/24 03:27:00) Basophils% Auto:??0.1 %??Low (12/05/24 03:27:00) Eosinophils% Auto:??0.1 %??Low (12/05/24 03:27:00) Neutrophils# Auto:??18.1??High (12/05/24 03:27:00) Lymphocytes# Auto:??1.1??Low (12/05/24 03:27:00) Monocytes# Auto:??1.1??High (12/05/24 03:27:00) Basophils# Auto:??0??Low (12/05/24 03:27:00) Eos# Auto:??0??Low (12/05/24 03:27:00) nRBC% Auto: 0 % (12/05/24 09:49:00) nRBC# Auto: 0 /100 WBC (12/05/24 09:49:00) Glu POC [place]:??194 mg/dL??High (12/05/24 11:19:00) Sodium: 141 mmol/L (12/05/24 03:27:00) Potassium:??3.4 mEq/L??Low (12/05/24 03:27:00) Chloride: 103 mmol/L (12/05/24 03:27:00) Carbon Dioxide: 28 mmol/L (12/05/24 03:27:00) BUN:??45 mg/dL??High (12/05/24 03:27:00) Creatinine:??2.2 mg/dL??High (12/05/24 03:27:00) eGFR:??30 mL/min/1.73m?Low (12/05/24 03:27:00) Glucose:??164 mg/dL??High (12/05/24 03:27:00) Calcium:??8.2 mg/dL??Low (12/05/24 03:27:00) Ca Corrected: 9.6 mg/dL (12/05/24 03:27:00) Anion Gap: 10 mmol/L (12/05/24 03:27:00) BUN/Crea Ratio:??20.45??High (12/05/24 03:27:00) Alkaline Phosphatase: 107 U/L (12/05/24 03:27:00) AST: 23 U/L (12/05/24 03:27:00) ALT:??30 U/L??Low (12/05/24 03:27:00) Bili Total:??1 mg/dL??High (12/05/24 03:27:00) Albumin:??2.3 g/dL??Low (12/05/24 03:27:00) Globulin: 5 (12/05/24 03:27:00) Prot Total: 7.1 g/dL (12/05/24 03:27:00) Albumin/Globulin Ratio:??0.48??Low (12/05/24 03:27:00) Osmol Ca mOsm/kg (12/05/24 03:27:00) Magnesium: 2.3 mg/dL (12/05/24 03:27:00) Diagnostic Results Diagnostic Radiology [Within the Last 24 Hours]?? No qualifying data available. Magnetic Resonance Imaging [Within the Last 24 Hours]?? No qualifying data available. Computed Tomography [Within the Last 24 Hours]?? No qualifying data available. recent EKG ?? EKG Report ?? 11/30/24 12:24:34 [facility] ?? 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 Electronically Signed On 12-02-2024 19:23:49 CDT by Marshal Lr ?? Signed By: MARSHAL LR MD Ultrasound [Within the Last 24 Hours]?? No qualifying data available. Nuclear Medicine [Within the Last 24 Hours]?? No qualifying data available. Medications Inpatient carvedilol, 12.5 mg= 2 tab(s), Oral, BID D50W Injection, 12.5 gm= 25 mL, IV Push, As Indicated, PRN D50W Injection, 25 gm= 50 mL, IV Push, As Indicated, PRN Dilaudid, 0.5 mg= 0.5 mL, IV Push, q2H, PRN donepezil, 10 mg= 2 tab(s), Oral, Daily at Bedtime glucagon, 1 mg= 1 mL, IM, As Indicated, PRN HumaLOG sliding scale, Low-Dose, Subcutaneous, QID (WM and Bedtime) hydrALAZINE, 25 mg= 1 tab(s), Oral, TID Maalox Antacid [place] Regular Strength, 30 mL, Oral, q4H, PRN Mag-Ox 400 - electrolyte replacement, 400 mg= 1 tab(s), Oral, BID, PRN Mag-Ox 400 - electrolyte replacement, 800 mg= 2 tab(s), Oral, BID, PRN magnesium sulfate - electrolyte replacement, 1 gm= 100 mL, IV Piggyback, As Indicated, PRN magnesium sulfate - electrolyte replacement, 2 gm= 50 mL, IV Piggyback, As Indicated, PRN [place] 7.5 mg-325 mg oral tablet, 1 tab(s), Oral, [id number], PRN NS with KCl 20 mEq/L 1,000 mL, 1000 mL, IV omega 3 fatty acids 1000 mg, 1000 mg, Oral, Daily pantoprazole, 40 mg, IV Push, BID Phenergan potassium chloride - electrolyte replacement, 20 mEq= 1 tab(s), Oral, q4H, PRN potassium chloride - electrolyte replacement, 10 mEq= 100 mL, IV Piggyback, Hourly, PRN potassium chloride - electrolyte replacement, 20 mEq= 1 tab(s), Oral, q4H, PRN potassium chloride - electrolyte replacement, 10 mEq= 100 mL, IV Piggyback, Hourly, PRN Reglan, 5 mg= 1 mL, IV, q6H Zofran, 4 mg= 2 mL, IV Push, [id number], PRN Assessment/Plan Ordered: Sodium Chloride 0.9% with KCl 20 mEq/L intravenous solution 1,000 mL, 1,000 mL, IV 10 hr, Rate = 100 mL/hr, Start Date: 12/05/24 9:55:00 CDT, 2.23, m2 NPO. POD??3 from Robotic assisted laparoscopic right hemicolectomy,??extensive lysis of adhesions x 80 minutes. Developed postoperative ileus. - NGT clamp trial for 6 hours, check residuals - Ok for ice chips and oral meds - IV PPI - maintenance IVF - PT/OT - DVT ppx with SCDs, will hold chemical DVT ppx for now - Ambulate - AROBF - Monitor kidney function - K repletion ? Milton Lindsey MD General, Bariatric and Foregut Surgeon Department of Surgery [facility] ? December 05, 2024 Electronically Signed on 12/05/2024 11:39 CDT MILTON NGO MD Surgical operation note * LAITH WOODWARD DO: PERFORM Event Display: Operative Report Authored Date: [id number] Indication for Surgery Patient has sessile polyps in the ascending colon??that were??tubular adenomas and pathology were too large to remove endoscopically. Preoperative Diagnosis Sessile tubular adenomas??in the ascending colon unresectable endoscopically Postoperative Diagnosis Same Operation Robotic assisted laparoscopic right hemicolectomy,??extensive lysis of adhesions x 80 minutes Surgeon(s) Yasir Woodward DO, DANYEL Emergency Vehicle Driver Dipika OCHOA Anesthesia General endotracheal Estimated Blood Loss 500 cc Findings Patient has a history of prostate cancer for which he had radiation therapy.?? He had extensive??pelvic??and lower abdominal adhesions resulting in??lysis of adhesions lasting approximately 80 minutes??at the beginning of the case.?? Patient also had??moderate to severe cirrhosis. ??Has??abdominal a scites??present. Specimen(s) 1.?? Right colon #2 terminal ileum??(removed 4??anastomosis)??#3??scarred omentum secondary to adhesions Complications No complications are noted Technique After the appropriate informed consent was obtained listing the indications, alternatives, as well as the possible risks and complications??patient was taken the OR and placed under general anesthesia.?? Appropriate timeout was called. ??Patient Hillman catheter SCDs and nasogastric tube in place.?? Patient was sterilely prepped and draped in routine fashion. ??Preemptive analgesia was applied and curvilinear incision was made infraumbilically. ??Dissection was carried through subcutaneous tissues??to the level of the fascia. ??The fascia was grasped, elevated, incised.?? Finger sweep revealed no adhesions after preperitoneal space was dissected the peritoneum was entered sharply.?? Eitfyx-al-wkjqt 0 Vicryl was placed and??trocar was placed. ??Abdomen is insufflated with CO2 gas and laparoscope was placed??for gross visualization. ??3 more robotic trocars were placed under direct visualization with preemptive analgesia.?? [employer] X Xi robot was then brought in and docked??and targeted.?? Extensive lysis of adhesions was then undertaken??including the omentum, colon, small bowel, peritoneum,??liver, and stomach.?? Once the adhesions were taken down??fairly normal anatomy was??renewed.?? The??right colon was tented and the??ileocolic??vascular pedicle was taken down??with??Enseal.?? This was then dissected retroperitoneally up to the hepatic flexure. ??The hepatocolic ligament was then taken down as well as the right gutter attachments.?? Once this was mobilized the ileocecal valve was mobilized and??stapler was fired across the terminal ileum.?? Dissection was then carried up around the liver the greater sac was opened??and adhesions were taken down along the upper abdomen.?? The??second resection point??was noted at the proximal transverse colon.?? Stapler was fired across this as well.?? 8 mm trocar was then exchanged for a wound protector??airtight and the specimen was removed. ??This was opened off the field and found to contain the polyps noted.?? The abdomen isthen reinsufflated and the terminal ileum??was??elevated??and the mesentery was taken down in orderto mobilize this into the??upper abdomen. ??This did compromise the vascularity of the??terminal ileum which was then resected allowing for??the??remaining of the ileum to be brought up into the upper mid abdomen. ??The transverse colon??was visualized and the gastrocolic ligament was taken down. ??The??anastomosis was performed??as isoperistaltic??isak-dm-iicm anastomosis. ??This was then??sewn shut with a 2 OV lock and oversewn with 2 OV lock. ??2-0 Vicryl's were utilized to??take down??any tension on the anastomosis. ??The entire was then thoroughly irrigated.?? The terminal ileum portion was removed from the abdominal cavity and then the abdomen was deflated.?? The trocars were all removed and the wound protector was removed. ??The peritoneum was grasped elevated and closed with a running 0 Vicryl.?Muscle and fascia were closed with a running 0 Vicryl. ??Subcutaneous tissues wereclosed with 2 and 3-0 chromic. ??Skin was reapproximated with running??4-0 Vicryl.?? Dermabond was applied the patient was awakened taken recovery room in stable condition. ??He tolerated procedure well.?? Sponge instrument needle counts were correct at the conclusion of case. Electronically Signed on 12/02/2024 20:59 CDT LAITH WOODWARD DO Discharge summary * LAITH WOODWARD DO: PERFORM Event Display: Discharge Summary Authored Date: [id number] Admission Date December 02, 2024 Discharge Date No discharge date available. Chief Complaint D12.2 Hospital Course Patient presented for elective partial colectomy secondary to adenomatous polyps that were too large to remove endoscopically. ??He underwent this procedure on ??of last week postoperatively he has done well.?? He progressed over the weekend with advancing his diet??good bowel movements andreports that he feels good and is ready for discharge today. Procedures Robotic assisted laparoscopic partial colectomy Consults Consult to Hospitalist - Completed?-- 12/02/24 20:48:00 CDT, Routine, SHEELA PEREIRA ??MD, Medical management Significant findings from diagnostic/lab tests Awaiting pathology report Physical Examination on the day of discharge Vitals & Measurements T:??100.8?F??(Oral)?? TMIN:??97.5?F??(Oral)?? TMAX:??100.8?F??(Oral)?? HR:??91??(Peripheral)?? RR:??15?? BP:??140/77?? BP:??140/77(Sitting)?? SpO2:??93%?? In general the patient is resting comfortably in bed??voices no complaint HEENT exam reveals??pupils to be equal round and reactive to light and accommodation, no scleral icterus.?? Pharynx is patent without exudate??tongue is in the midline. Heart is auscultated be regular in rate and rhythm without murmur Lungs are clear to auscultation bilaterally Abdomen is soft with normal sintia-incisional tenderness.?? No rebound, guarding, or rigidity.?? Dressings were intact and dry. Extremities show no edema with negative Homans Neurologically the patient is alert and oriented to person place and time Discharge Diagnoses Diagnosis (1) Active ?S/P partial resection of colon (ICD-10-CM Z90.49, Discharge, Medical) ? Discharge Plan S/P partial resection of colon (Acquired absence of other specified parts of digestive tract, Z90.49) Ordered: HYDROcodone-acetaminophen, 1 tab(s), Oral, [id number], PRN for pain, Acute postoperative pain, # 20 tab(s), 0 Refill(s), [facility], S/P partial resection of colon, 177.8, cm, 12/02/24 23:45:00 CDT, Patient Height, 101, kg, 12/02/24 23:45:00 CDT, Patient Weight... ?? Orders: Bath Restrictions Post Discharge Diet Post Discharge Discharge Patient Driving Restrictions Patient and Caregiver Education Patient and Caregiver Education Patient and Caregiver Education Post Discharge Activity Remove Peripheral Saline Lock Wound Care Routine Discharge medications PDMP Review: Reviewed On: 12/06/24 08:44:17 By: LAITH WOODWARD ??DO Summary of medication changes with reasons Pain medications added status post surgery Allergies No Known Medication Allergies Discharge Orders Bath Restrictions Post Discharge - Ordered?-- 12/06/24 8:47:00 CDT, Stop date 12/06/24 8:47:00 CDT, May shower Diet Post Discharge (Regular Diet.) - Ordered?-- 12/06/24 8:47:00 CDT, Regular Diet. Discharge Patient - Ordered?-- 12/06/24 8:47:00 CDT, to Home/Self Care Driving Restrictions - Ordered?-- 12/06/24 8:47:00 CDT, Cannot resume driving until cleared by surgeon Post Discharge Activity - Ordered?-- 12/06/24 8:47:00 CDT, No heavy lifting Activity Activity instruction sheet sent home with patient Follow up appointments My office in 1 to 2 weeks Discharge Condition Stable Disposition Home with self-care Electronically Signed on 12/06/2024 08:50 CDT LAITH WOODWARD DO Patient Care team information Care Team Personnel Name: ALBINO ARGUELLO MD Position: Physician - View Only Member Role: Primary Care Physician Address: Address: [address] [place] [id number]- Care Team Related Persons Name: ALBINO SIERRA
[2024-12-11] VITALS (12 sets, daily range): BP systolic 86–126; BP diastolic 48–97; PULSE 70–84; RESP 13–26; TEMP 36.6–36.7; O2SAT 91–97; BMI 33.0
--- NOTE | 2024-12-11 08:56 | ECG_ITS ---
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
--- NOTE | 2024-12-11 08:56 | XRR_ITS ---
PROCEDURE INFORMATION: Exam: XR Chest Exam date and time: 12/11/2024 9:19 AM Age: 74 years old Clinical indication: Condition or disease; Weakness; Tachycardia TECHNIQUE: Imaging protocol: Radiologic exam of the chest. Views: 1 view. COMPARISON: CR XR chest 1V portable [id number] 01/09/2021 10:04 AM FINDINGS: Lungs: Unremarkable. No consolidation. Pleural spaces: Unremarkable. No pleural effusion. No pneumothorax. Heart/Mediastinum: Unremarkable. No cardiomegaly. Bones/joints: Unremarkable. XR/XR chest 1V portable [id number] IMPRESSION: No acute findings.
[2024-12-11] MEDS: sodium chloride 0.9% 1,000 ML 999 ML IV ×2 (09:05→09:58)
[2024-12-11 09:23] LABS: Glucose Point of Care 132 mg/dL (70-110)
--- NOTE | 2024-12-11 09:25 | CTR_ITS ---
PROCEDURE INFORMATION: Exam: CT Abdomen And Pelvis Without Contrast Exam date and time: 12/11/2024 10:18 AM Age: 74 years old Clinical indication: Abdominal pain; Additional info: Abd pain TECHNIQUE: Imaging protocol: Computed tomography of the abdomen and pelvis without contrast. Radiation optimization: All CT scans at this facility use at least one of these dose optimization techniques: automated exposure control; mA and/or kV adjustment per patient size (includes targeted exams where dose is matched to clinical indication); or iterative reconstruction. COMPARISON: CT abdomen pelvis w con* [id number] 09/05/2023 3:21 PM RADIATION DOSE METRICS: Total DLP (mGy-cm): 1112.23 FINDINGS: Coronary arteries: Chest: Heavy coronary artery calcifications. Liver: Normal. No mass. Gallbladder and biliary ducts: Several small calcified stones. No ductal dilation. Pancreas: Normal. No ductal dilation. Spleen: Normal. No splenomegaly. Adrenal glands: Normal. No mass. Kidneys and ureters: Normal. No hydronephrosis. Stomach and bowel: Unremarkable. No obstruction. No mucosal thickening. Appendix: No evidence of appendicitis. Intraperitoneal space: There is diffuse abdominal and pelvic peritoneal ascites. Fluid is seen in the perihepatic, perisplenic, the perigastric,. Bilateral paracolic gutters, and in the pelvis. These findings were not present on prior examination. Vasculature: Unremarkable. No abdominal aortic aneurysm. Lymph nodes: Unremarkable. No enlarged lymph nodes. Urinary bladder: Unremarkable as visualized. Reproductive: Unremarkable as visualized. Bones/joints: Lumbar spine severe osteopenia, osteoarthritis, and Schmorl's nodes at multiple levels a superior endplate Schmorl's node is present at the L3 level.. Soft tissues: Unremarkable. CT/CT abdomen pelvis con [id number] IMPRESSION: 1. Diffuse abdominal and pelvic peritoneal ascites. 2. Cholelithiasis. 3. Osteopenia, osteoarthritis, and compression deformities lumbar spine 4. Heavy coronary artery calcifications
[2024-12-11 09:30] LABS: Hematocrit 23.8 % (37-53); Mean Corpuscular HGB Conc 30.7 g/dL (30-55); Mean Corpuscular Hemoglobin 28.2 pg (27-33); Mean Corpuscular Volume 91.9 fl (82-101); Mean Platelet Volume 10.5 fL (7.4-10.4); Platelet Count 435 10^3/cmm (157-399); Red Blood Count 2.59 10^6/uL (3.85-5.65); Red Cell Distribution Width 17.8 % (12.1-15.1); White Blood Count 19.06 10^3/uL (3.29-11.43)
--- NOTE | 2024-12-11 09:33 | PC.NURSE ---
pt given urinal to attempt to collect urine sample
--- NOTE | 2024-12-11 09:36 | W.ED.WEAKNES ---
HPI - Weakness General: Chief complaint: Weakness Stated complaint: Low BS Low BP Time Seen by Provider: 12/11/24 09:07 Source: patient Mode of arrival: ambulatory Limitations: no limitations History of Present Illness: 74-year-old male with a history of stage IV liver cirrhosis he had had a bowel resection done at [facility] little over a week ago he was discharged on Friday states he has been having weakness since then family states this morning his blood pressure was low and his blood sugar was low and he is feeling very weak. She has some mild pain all over denies any severe abdominal pain his incisions are clean and dry intact. Denies any vomiting or diarrhea. Associated symptoms: Denies chest pain, chills, fever(s), headache(s), nausea or vomiting Review of Systems Const: Reports: fatigue and malaise; Denies: fever(s), chills, body aches or change in appetite ENMT: Denies: throat pain or dental pain Card: Denies: chest pain Resp: Denies: dyspnea GI: Denies: abdominal pain, nausea, vomiting or diarrhea Musc: Denies: neck pain or back pain Skin/Breast: Denies: rash Neuro: Denies: headache(s) PFSH ED PFSH: Medical History UTI (urinary tract infection) Thrombocytopathia Leukopenia JETT (acute kidney injury) Hematochezia Hyperlipidemia Diabetes Hypertension Prostate cancer Surgical History Port-A-Cath in place (01/03/21) History of ankle surgery Family History Father Stroke Grandfather Stroke CAD (coronary artery disease) Family/Other Cancer Uncle - Liver cancer 2 other uncles with unknown cancer Mother Diabetes Mother No problems noted. Grandmother Diabetes Sister Diabetes Denies family history of Clotting disorder Dementia Hyperlipidemia Psychiatric illness Chronic kidney disease (CKD) Suicide Anesthesia complication Bleeding disorder Lung disease Hypertension Social History Smoking and tobacco/nicotine status: never used tobacco/nicotine Alcohol intake: former Substance/Drug Use: never Physical Exam Const: COMMON NORMALS: patient oriented x3 HENMT: COMMON NORMALS: normocephalic and atraumatic HEAD & SCALP: normocephalic and atraumatic Eye: COMMON NORMALS: Equal, round and reactive pupils present and EOMs intact bilaterally PUPIL: Yes Equal, round and reactive pupils present Neck/C-Spine: COMMON NORMALS: full ROM and supple Chest: COMMONS NORMALS: normal inspection of the chest and normal palpation of entire chest wall Resp: COMMON NORMALS: normal respiratory effort, No retractions, No use of accessory muscles and clear to auscultation bilaterally AUSCULTATION: clear to auscultation bilaterally Cardio: COMMON NORMALS: regular rate, regular rhythm and No murmurs present (Cardio) RATE: regular rate RHYTHM: regular rhythm GI: COMMON NORMALS: Normal to inspection, nondistended, normoactive bowel sounds present, Soft to palpation, non-tender and no masses PALPATION: Yes Soft to palpation Extremity: COMMON NORMALS: normal to inspection and full ROM Neuro: COMMON NORMALS: patient oriented x3, moves all extremities and no focal motor deficits Psych: COMMON NORMALS: mental status grossly normal, Normal thought process present and cooperative THOUGHT PROCESS: Normal thought process present Skin: COMMON NORMALS: no rashes or lesions noted and no wounds GENERAL SKIN EXAM: no rashes or lesions noted Course Vital Signs: Vital signs: Vital Signs Temperature 97.8 F 12/11/24 09:06 Pulse Rate 73 12/11/24 12:24 Respiratory Rate 18 12/11/24 12:24 Blood Pressure 97/55 12/11/24 12:24 Pulse Oximetry 95 12/11/24 12:24 Oxygen Delivery Me thod Room Air 12/11/24 09:06 MDM - Weakness Medical Decision Making Patient presents here with generalized weakness he is found to have acute kidney injury does have a history of cirrhosis CT showed no acute findings from his recent surgery lactate here is normal spoke to hospitalist will admit at this time Medical Records I reviewed the patient's medical records. Lab Data I reviewed the patient's lab results. 12/11/24 09:12 12/11/24 09:12 Radiology Impressions Chest X-Ray 12/11/24 08:56 IMPRESSION: No acute findings. Abdomen/Pelvis CT 12/11/24 09:25 IMPRESSION: 1. Diffuse abdominal and pelvic peritoneal ascites. 2. Cholelithiasis. 3. Osteopenia, osteoarthritis, and compression deformities lumbar spine 4. Heavy coronary artery calcifications Laboratory Results WBC 19.06 10^3/uL (3.29-11.43) H 12/11/24 09:12 RBC 2.59 10^6/uL (3.85-5.65) L 12/11/24 09:12 Hgb 7.30 g/dL (11.27-16.99) L 12/11/24 09:12 Hct 23.8 % (37-53) L 12/11/24 09:12 MCV 91.9 fl (82-101) 12/11/24 09:12 MCH 28.2 pg (27-33) 12/11/24 09:12 MCHC 30.7 g/dL (30-55) 12/11/24 09:12 RDW 17.8 % (12.1-15.1) H 12/11/24 09:12 Plt Count 435 10^3/cmm (157-399) H 12/11/24 09:12 MPV 10.5 fL (7.4-10.4) H 12/11/24 09:12 Lymph % (Auto) Not Reportable 12/11/24 09:12 Creek % (Auto) Not Reportable 12/11/24 09:12 Lymph # (Auto) Not Reportable 12/11/24 09:12 [place] # (Auto) Not Reportable 12/11/24 09:12 Total Counted 100 (0-100) 12/11/24 09:12 Atypical Lymphs % 2.0 % (0-5) 12/11/24 09:12 Absolute Neutrophils 17.2 10^3/cmm (1.4-6.5) H 12/11/24 09:12 Segmented Neutrophils 77 % 12/11/24 09:12 Band Neutrophils 13.0 % 12/11/24 09:12 Absolute Lymphocytes 0.8 10^3/cmm (1.2-3.4) L 12/11/24 09:12 Lymphocytes (Manual) 2 % 12/11/24 09:12 Monocytes (Manual) 1.0 % 12/11/24 09:12 Absolute Monocytes 0.2 10^3/cmm (0.1-0.6) 12/11/24 09:12 Eosinophils (Manual) 1 % 12/11/24 09:12 Absolute Eosinophils 0.2 10^3/cmm (0.0-0.7) 12/11/24 09:12 Basophils (Manual) 0.0 % 12/11/24 09:12 Absolute Basophils 0.0 10^3/cmm (0.0-0.2) 12/11/24 09:12 Metamyelocytes 2.0 % 12/11/24 09:12 Myelocytes 2.0 % 12/11/24 09:12 Platelet Estimate Increased (Normal) 12/11/24 09:12 Sodium 129 mmol/L (136-145) L 12/11/24 09:12 Potassium 4.1 mmol/L (3.5-5.1) 12/11/24 09:12 Chloride 95 mmol/L (98-107) L 12/11/24 09:12 Carbon Dioxide 16 mmol/L (22-29) L 12/11/24 09:12 Anion Gap 22.1 (5-19) H 12/11/24 09:12 BUN 94 mg/dL (8-23) H* D 12/11/24 09:12 Creatinine 4.2 mg/dL (0.7-1.2) H 12/11/24 09:12 GFR Calculation Not Reportable 12/11/24 09:12 Glucose 126 mg/dL (65-115) H 12/11/24 09:12 POC Glucose 132 mg/dL (70-110) H 12/11/24 09:06 Calculated Osmolality 299 mOsm/kg (285-295) H 12/11/24 09:12 Lactic Acid 1.8 mmol/L (0.5-2.2) 12/11/24 09:12 Calcium 8.3 mg/dL (8.5-10.5) L 12/11/24 09:12 Magnesium 2.2 mg/dL (1.7-2.3) 12/11/24 09:12 Total Bilirubin 0.5 mg/dL (0.15-1.2) 12/11/24 09:12 AST 21 U/L (0-40) 12/11/24 09:12 ALT 16 U/L (0-41) 12/11/24 09:12 Alkaline Phosphatase 124 U/L (40-130) 12/11/24 09:12 NT-Pro-B Natriuret Pep 1033 pg/mL (0-450) H 12/11/24 09:12 Total Protein 6.9 g/dL (6.6-8.7) 12/11/24 09:12 Albumin 2.6 g/dL (3.5-5.2) L 12/11/24 09:12 Globulin 4.3 g/dL (1.3-4.6) 12/11/24 09:12 Lipase 163 U/L (13-60) H 12/11/24 09:12 Urine Color Dark yellow (Yellow) A 12/11/24 09:56 Urine Appearance Cloudy (CLEAR) A 12/11/24 09:56 Urine pH 5.0 (5-7) 12/11/24 09:56 Ur Specific Kim 1.022 (1.005-1.030) 12/11/24 09:56 Urine Protein 1+ (Negative) A 12/11/24 09:56 Urine Glucose (UA) Trace (Normal) H 12/11/24 09:56 Urine Ketones Trace (Negative) 12/11/24 09:56 Urine Blood Negative (Negative) 12/11/24 09:56 Urine Nitrate Negative (Negative) 12/11/24 09:56 Urine Bilirubin 1+ (Negative) H 12/11/24 09:56 Urine Urobilinogen 1.0 mg/dL (Negative) 12/11/24 09:56 Ur Leukocyte Esterase Trace (Negative) A 12/11/24 09:56 Urine RBC 3-5 /hpf (0-2) 12/11/24 09:56 Urine WBC 0-5 /hpf (0-5) 12/11/24 09:56 Ur Squamous Epith Cells 0-5 /hpf (0-5) 12/11/24 09:56 Amorphous Sediment Not Reportable 12/11/24 09:56 Urine Bacteria None seen /hpf (NONE) 12/11/24 09:56 Hyaline Casts 8.26 /lpf 12/11/24 09:56 All radiology interpretation(s) finalized by discharge Discharge Plan Discharge Patient Disposition: Admitted As Inpatient Clinical Impression: Acute kidney injury, Cirrhosis, Generalized weakness Condition: Stable Coding Level of Care Code ED Epilepsy Physician for g Fwd Related Data Home Medications ?Medication ?Instructions ?Recorded ?Confirmed amlodipine 10 mg tablet 10 mg PO DAILY 12/26/20 12/11/24 atenolol 100 mg tablet 100 mg PO DAILY 12/26/20 12/11/24 hydrochlorothiazide 25 mg tablet 25 mg PO DAILY 01/17/22 12/11/24 metformin 1,000 mg tablet 1,000 mg PO BID 04/05/22 12/11/24 empagliflozin 25 mg tablet 12.5 mg PO DAILY 09/05/23 12/11/24 hydralazine 25 mg tablet 25 mg PO TID PRN Blood Pressure 09/05/23 12/11/24 losartan 100 mg tablet 100 mg PO DAILY 09/05/23 12/11/24 pravastatin 40 mg tablet 40 mg PO QPM 09/05/23 12/11/24 carvedilol 25 mg tablet 25 mg PO BID 12/11/24 12/11/24 donepezil 10 mg tablet 5 mg PO BEDTIME 12/11/24 12/11/24 Allergies Allergy/AdvReac Type Severity Reaction Status Date / Time No Known Allergies Allergy Verified 11/03/24 11:51
[2024-12-11 09:46] LABS: Alanine Aminotransferase 16 U/L (0-41); Albumin Level 2.6 g/dL (3.5-5.2); Alkaline Phosphatase 124 U/L (40-130); Anion Gap 22.1 (5-19); Aspartate Amino Transferase 21 U/L (0-40); Calcium 8.3 mg/dL (8.5-10.5); Carbon Dioxide 16 mmol/L (22-29); Chloride 95 mmol/L (98-107); Creatinine Clr Calc Pharmacy 18.3845; Globulin 4.3 g/dL (1.3-4.6); Glucose 126 mg/dL (65-115); Lipase 163 U/L (13-60); Magnesium 2.2 mg/dL (1.7-2.3); Osmolality Calculated 299 mOsm/kg (285-295); Potassium 4.1 mmol/L (3.5-5.1); Sodium 129 mmol/L (136-145); Total Bilirubin 0.5 mg/dL (0.15-1.2); Total Protein 6.9 g/dL (6.6-8.7)
[2024-12-11 09:48] LABS: Lactic Sepsis W/Reflex 1.8 mmol/L (0.5-2.2)
[2024-12-11 09:51] LABS: Blood Urea Nitrogen 94 mg/dL (8-23)
[2024-12-11 09:56] LABS: NT Pro B Type Natriuretic Pept 1033 pg/mL (0-450)
[2024-12-11 10:05] LABS: Bilirubin Urine 1+ (Negative); Blood Urine Negative (Negative); Glucose Urine UA Trace (Normal); Ketones Urine Trace (Negative); Leukocyte Esterase Urine Trace (Negative); Nitrate Urine Negative (Negative); Protein Urine 1+ (Negative); Specific Gravity, Urine 1.022 (1.005-1.030); Urine Appearance Cloudy (CLEAR); Urine Color Dark Yellow (Yellow)
[2024-12-11 10:09] LABS: Add Urine Microscopic? YES; Bacteria Urine None Seen /hpf; Hyaline Casts Urine 8.26 /lpf; Squamous Epithelial Cell Urine 0-5 /hpf (0-5); WBC Urine 0-5 /hpf (0-5)
--- NOTE | 2024-12-11 10:14 | PC.NURSE ---
10mL urine output with straight cath. pt c/o difficulty breathing when lying flat, oxygen sat 93%. pt feels better when sitting up. Dr. Gómez notified.
[2024-12-11 10:24] LABS: Absolute Eosinophils 0.2 10^3/cmm (0.0-0.7); Absolute Neutrophil 17.2 10^3/cmm (1.4-6.5); Absolute Segmented Neutrophil 14.7 10/cmm (1.6-7.1); Band Neutrophils Absolute 2.5 10^3/cmm (0.0-1.2); Eosinophils 1 %; Lymphocytes 2 %; Lymphocytes Absolute 0.8 10^3/cmm (1.2-3.4); Monocytes Absolute 0.2 10^3/cmm (0.1-0.6); Platelet Estimate Increased (Normal); Segmented Neutrophils 77 %; Slide Review Slide Review Perform; Total Cells Counted 100 (0-100)
[2024-12-11 10:26] LABS: UA Slide Review UA Slide Review Perf
--- NOTE | 2024-12-11 10:58 | PC.PHAR ---
Family member could not remember 2 new medications. Phoned [facility] for new orders-Carvedilol 25mg daily and Donepezil 10mg 1/2 tablet at bedtime. Added to pt list.
--- OUTSIDE RECORDS SUMMARY | 2024-12-11 12:07 | XMS_ITS | Continuity of Care Document ---
Author Name [facility] Organization [facility] Care Team Providers Care Draw Tender Name Role Phone [facility] Unavailable Unavailable Problems Combined list of problems from Department of Defense and Veterans Affairs facilities. It does not include entries that were removed or entered in error. Problem Status Onset Date Problem Type Date of Resolution Comments Source Cirrhosis of liver Active Condition M ar 2024 Entered By: ALBINO ARGUELLO Comment: 1 antitrypsin positiveMay 2024 Entered By: ALBINO ARGUELLO Comment: Chronic stable ascites [place] [facility] Dementia (SCT 96653067) Active Condition [place] [facility] Diabetes Mellitus Type 2 (SCT 34179328) Active Condition [place] [facility] Esophageal varices Active Condition M ar 2024 Entered By: ALBINO ARGUELLO Comment: EGD 08/11/2024May 2024 Entered By: ALBINO ARGUELLO Comment: EGD 10/12/2024 variceal ligation x 6 [place] [facility] Exposure to potentially hazardous substance Active Condition [facility] Fatty liver Active Condition [facility] Hearing loss Active Condition [place] [facility] History of cancer of eye Active Condition [place] [facility] HLD - Hyperlipidemia (SNOMED CT 22844042) Active Condition [place] [facility] HTN - Hypertension (SNOMED CT 93841250) Active Condition [place] [facility] Internal haemorrhoids Active Condition [place] [facility] Obesity (SNOMED CT 427842268) Active Condition [place] [facility] Onychomycosis Active Condition [place] [facility] Polyp Colon (SCT 04416758) Active Condition Mar 03, 2023 Entered By: ALBINO ARGUELLO Comment: colonoscopy 02/10/2023 adenomatous polyps x3; repeat 2024 Entered By: ALBINO ARGUELLO Comment: colonoscopy 08/11/2024 with adenomatous polyps that were unable to remove [place] [facility] Prostate Cancer ([facility] [id number]) Active Condition Sep 24, 2021 Entered By: ALBINO ARGUELLO Comment: radiation treatment [place] [facility] 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 [place] [facility] Arthritis * (ICD-9-CM 716.90) Inactive Condition 01/06/2017 [place] [facility] Chest pain (SNOMED CT 46784656) Inactive Condition 01/06/2017 [facility] Conjunctivitis * (ICD-9-CM 372.30) Inactive Condition 02/15/2016 [place] [facility] Dizziness * (ICD-9-CM 780.4) Inactive Condition 02/15/2016 [place] [facility] Family History of Diabetes Mellitus (ICD-9-CM V18.0) Inactive Condition 02/15/2016 [place] [facility] Laboratory Examination Ordered as part of a Routine General Medical Examination Inactive Condition 02/15/2016 [place] [facility] Laboratory Examination, unspecified (ICD-9-CM V72.60) Inactive Condition 02/15/2016 [facility] Malignant essential hypertension (ICD-9-CM 401.0) Inactive Condition 01/06/2017 [place] [facility] Onycholysis (ICD-9-CM 703.8) Inactive Condition 02/15/2016 [place] [facility] Other Malaise and Fatigue (ICD-9-CM 780.79) Inactive Condition 02/15/2016 [place] [facility] Routine General Medical Examination at a Health Care Facility * (ICD-9-CM V70.0) Inactive Condition 02/15/2016 [facility] Screening for Malignant Neoplasm of the Prostate Inactive Condition 02/15/2016 [facility] Screening for Thyroid Disorders Inactive Condition 02/15/2016 [facility] Tinnitus * (ICD-9-CM 388.30) Inactive Condition 01/06/2017 [place] [facility] Diagnosis: ICD-10-CM E11.9 Type 2 diabetes mellitus without complications Active Diagnosis [facility] Diagnosis: ICD-10-CM H04.123 Dry eye syndrome of bilateral lacrimal glands Active Diagnosis [place] [facility] Diagnosis: ICD-10-CM Z71.89 Other specified counseling Active Diagnosis [facility] Diagnosis: ICD-10-CM I10 Essential (primary) hypertension Active Diagnosis [facility] Diagnosis: ICD-10-CM K92.2 Gastrointestinal hemorrhage, unspecified Active Diagnosis [facility] Diagnosis: ICD-10-CM R21 Rash and other nonspecific skin eruption Active Diagnosis [facility] Medications Combined list of outpatient medications from Department of Defense and Veterans Affairs facilities.Medications provided include 1) outpatient medications from the last 15 months, and 2) patient-reported medications. Medication Details Route Status Patient Instructions Prescription Expires Prescription Number Last Dispense Date Ordering Provider Order Date Order Qty Source AMLODIPINE BESYLATE 10MG TAB TAKE ONE TABLET BY MOUTH ONCE A DAY TO LOWER BLOOD PRESSURE ORAL ACTIVE 09/11/2025 [id number] 5 ALBINO ARGUELLO 2024 90 [facility] AMLODIPINE BESYLATE 10MG TAB TAKE ONE TABLET BY MOUTH ONCE A DAY TO LOWER BLOOD PRESSURE ORAL DISCONT INUED 08/26/2024 [id number] 5 ALBINO ARGUELLO 2023 90 [facility] AT[facility] 100MG TAB TAKE ONE TABLET BY MOUTH ONCE A DAY FOR HEART OR TO CONTROL BLOOD PRESSURE . DO NOT TAKE ANTACIDS OR CALCIUM SUPPLEME NTS WITHIN 2 HRS OF TAKING THIS MEDICATI ON. ORAL DISCONT INUED BY PROVIDE R 09/16/2024 [id number] 5 SAUNDRAALBINO 2023 90 [facility] CARVEDILOL 25MG TAB TAKE ONE TABLET BY MOUTH TWICE A DAY FOR HIGH BLOOD PRESSURE TAKE WITH FOOD. ORAL ACTIVE 09/11/2025 [id number] 5 ALBINO ARGUELLO 2024 180 [facility] DONEPEZIL HCL 10MG TAB TAKE ONE-HALF TABLET BY MOUTH AT BEDTIME FOR DEMENTIA (JUST BEFORE BEDTIME) ORAL ACTIVE 09/11/2025 [id number] 5 ALBINO ARGUELLO 2024 45 [facility] EMPAGLIFLOZ IN 25MG TAB TAKE ONE TABLET BY MOUTH ONCE A DAY FOR DIABETES ORAL SUSPEND ED 03/13/2025 [id number] 5 SAUNDRA ALBINO 2023 90 [facility] EMPAGLIFLOZ IN 25MG TAB TAKE ONE TABLET BY MOUTH ONCE A DAY FOR DIABETES ORAL DISCONT INUED (EDIT) 02/17/2025 [id number] 4 [facility] ALBINO 2023 90 [facility] EMPAGLIFLOZ IN 25MG TAB TAKE ONE-HALF TABLET BY MOUTH ONCE A DAY FOR DIABETES ORAL DISCONT INUED (EDIT) 09/16/2024 [id number] 4 [facility] ALBINO 2023 45 [facility] EMPAGLIFLOZ IN 25MG TAB TAKE ONE-HALF TABLET BY MOUTH ONCE A DAY FOR DIABETES ORAL DISCONT INUED 09/24/2023 [id number] 4 [facility] 2022 45 [facility] FERROUS SO4 325MG TAB TAKE ONE TABLET BY MOUTH TWICE A DAY FOR IRON DEFICIEN CY ANEMIA ORAL ACTIVE 09/14/2025 [id number] 5 [facility] 2024 200 [facility] FISH OIL 1000MG (500MG DHA/EPA) CAP,ORAL TAKE 2 CAPSULES BY MOUTH TWICE A DAY ORAL ACTIVE VÍCTOR SMITH 2014 [facility] FLUOROMETHO LONE 0.1% SUSP,OPH INSTILL 1 DROP IN BOTH EYES FOUR TIMES A DAY FOR OCULAR INFLAMMA TION - APPLY TO INSIDE OF LOWER LID. CLOSE EYE FOR 1-2 MINUTES AND ROLL EYEBALL IN ALL DIRECTIO NS. OPHTHA LMIC ACTIVE 05/20/2025 [id number] 4 Oswald VELAZQUEZ N 2023 10 [place] [facility] FLUOROURACI L 5% CREAM,TOP APPLY THIN FILM TO AFFECTED AREA(S) TWICE A DAY FOR 3 WEEKS APPLY TO ARMS AND HANDS. EXPECT A RED, BEEFY RASH TO TREATED AREAS. AVOID SUN EXPOSURE . FOLLOW DIRECTIO NS CAREFULL Y FOR PROPER HANDLING /DISPOSA L. TOPICA L 11/18/2024 [id number] 4 CHEKO HOLT 2023 40 [place] [facility] GLIMEPIRIDE 2MG TAB TAKE ONE-HALF TABLET BY MOUTH EVERY MORNING FOR DIABETES TAKE WITH BREAKFAS T OR FIRST FOOD. ORAL ACTIVE 03/13/2025 [id number] 5 SAUNDRA ALBINO 2023 45 [facility] HYDRALAZINE HCL 25MG TAB TAKE ONE TABLET BY MOUTH THREE TIMES A DAY NEEDED FOR BLOOD PRESSURE IF SBP IS GREATER THAN 140 ORAL 12/08/2024 [id number] 5 SAUNDRA, ALBINO 2023 270 [facility] HYDROCHLORO THIAZIDE 25MG TAB TAKE ONE TABLET BY MOUTH ONCE A DAY FOR BLOOD PRESSURE ORAL ACTIVE 08/14/2025 [id number] 5 [facility] ALBINO 2024 90 [facility] HYDROCHLORO THIAZIDE 25MG TAB TAKE ONE TABLET BY MOUTH ONCE A DAY FOR BLOOD PRESSURE ORAL DISCONT INUED 09/16/2024 [id number] 5 [facility] ALBINO 2023 90 [facility] [place] POTASSIUM 100MG TAB TAKE ONE TABLET BY MOUTH AT NOON TO LOWER BLOOD PRESSURE ORAL ACTIVE 09/11/2025 [id number] 5 [facility] ALBINO 2024 90 [facility] METFORMIN HCL 1000MG TAB TAKE ONE TABLET BY MOUTH TWICE A DAY WITH MEALS FOR BLOOD SUGAR CONTROL. TAKE WITH FOOD. AVOID ALCOHOL. DISCONTI NUE BEFORE GETTING XRAY DYE. ORAL ACTIVE 05/12/2025 [id number] 5 [facility] ALBINO 2023 180 [facility] METFORMIN HCL 1000MG TAB TAKE ONE TABLET BY MOUTH TWICE A DAY WITH MEALS FOR BLOOD SUGAR CONTROL. TAKE WITH FOOD. AVOID ALCOHOL. DISCONTI NUE BEFORE GETTING XRAY DYE. ORAL DISCONT INUED 03/20/2024 [id number] 4 SAUNDRA ALBINO 2022 180 [facility] OMEPRAZOLE 40MG CAP,EC TAKE ONE CAPSULE BY MOUTH ONCE A DAY TAKE 30 MINUTES PRIOR TO FOOD. ORAL ACTIVE 09/11/2025 [id number] 5 SAUNDRA, ALBINO 2024 90 [facility] OMEPRAZOLE 40MG CAP,EC TAKE ONE CAPSULE BY MOUTH ONCE A DAY TAKE 30 MINUTES PRIOR TO FOOD. ORAL DISCONT INUED 11/09/2024 [id number] 5 MARCELLUS TAYLOR MD 2024 90 [facility] PEG-3350/EL ECTROLYTES (EQV-MOVIPR EP) PWDR MIX AND DRINK CONTENTS OF KIT BY MOUTH ONE-TIME FOR BOWEL EMPTYING ORAL 09/03/2024 [id number] GOULD,CAR OL NOLAN 2024 1 [place] [facility] PRAVASTATIN NA 40MG TAB TAKE ONE TABLET BY MOUTH EVERY EVENING FOR HIGH CHOLESTE ROL ORAL ACTIVE 09/11/2025 [id number] 5 SAUNDRA, ALBINO 2024 30 [facility] PRAVASTATIN NA 40MG TAB TAKE ONE TABLET BY MOUTH EVERY EVENING FOR HIGH CHOLESTE ROL ORAL DISCONT INUED 09/16/2024 [id number] 4 SAUNDRA ALBINO 2023 30 [facility] PROPYLENE GLYCOL 0.6% SOLN,OPH INSTILL 1 DROP IN BOTH EYES FOUR TIMES A DAY FOR DRY EYE(S) OPHTHA LMIC ACTIVE 05/20/2025 [id number] 4 Oswald VELAZQUEZ 2023 10 [facility] Allergies, Adverse Reactions, Alerts Combined list of allergies from Department of Defense and Veterans Affairs facilities. It does not include entries that were removed or entered in error. Substance Category Reaction Severity Reaction type Status Date Reported Comments Source COLESTIPOL Propensity to adverse reactions to drug (finding) Nausea and vomiting active 4 [facility] GEMFIBROZIL Propensity to adverse reactions to drug (finding) Eruption, VISION,BL URRED, OTHER REACTION active 5 [facility] LISINOPRIL Propensity to adverse reactions to drug (finding) Cough active 3 [facility] LOVASTATIN Propensity to adverse reactions to drug (finding) Cramp active 5 [facility] NIACIN Propensity to adverse reactions to drug (finding) Nausea and vomiting active 2 [facility] PRAVASTATIN Propensity to adverse reactions to drug (finding) Nausea and vomiting active 4 [facility] SIMVASTATIN Propensity to adverse reactions to drug (finding) Nausea and vomiting active 4 [facility] Immunizations Combined list of available immunizations from the Department of Defense and Veterans Affairs facilities. 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 Comments Source TDAP 2023 KALA ROWAN RIGHT DELTO ID [id number] 115 complet ed [facility] AT [facility] ZOSTER RECOMBINANT 2 2021 187 complet ed [facility] PNEUMOCOCCAL POLYSACCHARID E PPV23 2021 33 complet ed [facility] ZOSTER RECOMBINANT 1 2021 187 complet ed [facility] COVID-19 (MODERNA), MRNA, LNP-S, PF, 100 MCG/0.5ML DOSE OR 50 MCG/0.25ML DOSE 3 2021 207 complet ed HISTORICA L INFORMATI ON - FROM OTHER REGISTRY, [facility] COVID-19 (MODERNA), MRNA, LNP-S, PF, 100 MCG/0.5 ML DOSE 2 2020 207 complet ed [facility] COVID-19 (MODERNA), MRNA, LNP-S, PF, 100 MCG/0.5 ML DOSE 1 2020 207 complet ed [facility] HEP B, ADULT 2016 NONE 43 complet ed Completed Series, [facility] TETANUS-DIPHT -aPERT (HISTORICAL) 2012 115 complet ed [facility] TD(ADULT) UNSPECIFIED FORMULATION 2000 139 complet ed [facility] Results Combined list of recent chemistry, hematology and other laboratory results from Department of Defense and Veterans Affairs, ranging from 15 months to all on record, depending upon the facility. Order Name Results Value Reference Range Date Interpretation Specimen Comments Source COMPREHENSI VE METABOLIC PANEL CREATININE [MASS/VOLUME] IN SERUM OR PLASMA 0.96 mg/dL 0.7 - 1.3 10/05 Specimen Type: PLASMA No comment entered. Ordering Provider: ALBINO ARGUELLO Report Released Date/Time : Oct 04, 2024 03:13 PM Reporting Lab: [place] [facility] [address] [place] [address] Performin g Lab: [place] [facility] [address] [place] [address] [place] [facility] COMPREHENSI VE METABOLIC PANEL UREA NITROGEN [MASS/VOLUME] IN SERUM OR PLASMA 14 mg/dL 9 - 25 10/05 Specimen Type: PLASMA No comment entered. Ordering Provider: ALBINO ARGUELLO Report Released Date/Time : Oct 04, 2024 03:13 PM Reporting Lab: [place] [facility] [address] [place] [address] Performin g Lab: [place] [facility] [address] [place] [address] [place] [facility] COMPREHENSI VE METABOLIC PANEL GLUCOSE [MASS/VOLUME] IN SERUM OR PLASMA 130 mg/dL 72 - 99 10/05 H Specimen Type: PLASMA No comment entered. Ordering Provider: ALBINO ARGUELLO Report Released Date/Time : Oct 04, 2024 03:13 PM Reporting Lab: [place] [facility] [address] [place] [address] Performin g Lab: [place] [facility] [address] [place] [address] [place] [facility] COMPREHENSI VE METABOLIC PANEL SODIUM [MOLES/VOLUME ] IN SERUM OR PLASMA 140 meq/L 136 - 145 10/05 Specimen Type: PLASMA No comment entered. Ordering Provider: ALBINO ARGUELLO Report Released Date/Time : Oct 04, 2024 03:13 PM Reporting Lab: [place] [facility] [address] [place] [address] Performin g Lab: [place] [facility] [address] [place] [address] [place] [facility] COMPREHENSI VE METABOLIC PANEL POTASSIUM [MOLES/VOLUME ] IN SERUM OR PLASMA 4.1 meq/L 3.5 - 5 10/05 Specimen Type: PLASMA No comment entered. Ordering Provider: ALBINO ARGUELLO Report Released Date/Time : Oct 04, 2024 03:13 PM Reporting Lab: [place] [facility] [address] [place] [address] Performin g Lab: [place] [facility] [address] [place] [address] [place] [facility] COMPREHENSI VE METABOLIC PANEL CHLORIDE [MOLES/VOLUME ] IN SERUM OR PLASMA 107 meq/L 98 - 107 10/05 Specimen Type: PLASMA No comment entered. Ordering Provider: ALBINO ARGUELLO Report Released Date/Time : Oct 04, 2024 03:13 PM Reporting Lab: [place] [facility] [address] [place] [address] Performin g Lab: [place] [facility] [address] [place] [address] 8 [place] [facility] COMPREHENSI VE METABOLIC PANEL CARBON DIOXIDE, TOTAL [MOLES/VOLUME ] IN SERUM OR PLASMA 22 meq/L 22 - 10/05 Specimen Type: PLASMA No comment entered. Ordering Provider: ALBINO ARGUELLO Report Released Date/Time : Oct 04, 2024 03:13 PM Reporting Lab: [place] [facility] [address] [place] [address] Performin g Lab: [place] [facility] [address] [place] [address] 8 [place] [facility] COMPREHENSI VE METABOLIC PANEL CALCIUM [MASS/VOLUME] IN SERUM OR PLASMA 8.7 mg/dL 8.4 - 10.4 10/05 Specimen Type: PLASMA No comment entered. Ordering Provider: ALBINO ARGUELLO Report Released Date/Time : Oct 04, 2024 03:13 PM Reporting Lab: [place] [facility] [address] [place] [address] Performin g Lab: [place] [facility] [address] [place] [address] [place] [facility] COMPREHENSI VE METABOLIC PANEL PROTEIN [MASS/VOLUME] IN SERUM OR PLASMA 7.6 g/dL 6 - 8.6 10/05 Specimen Type: PLASMA No comment entered. Ordering Provider: ALBINO ARGUELLO Report Released Date/Time : Oct 04, 2024 03:13 PM Reporting Lab: [place] [facility] [address] [place] [address] Performin g Lab: [place] [facility] [address] [place] [address] 8 [place] [facility] COMPREHENSI VE METABOLIC PANEL ALBUMIN [MASS/VOLUME] IN SERUM OR PLASMA 4.0 g/dL 3.4 - 5 10/05 Specimen Type: PLASMA No comment entered. Ordering Provider: ALBINO ARGUELLO Report Released Date/Time : Oct 04, 2024 03:13 PM Reporting Lab: [place] [facility] [address] [place] [address] Performin g Lab: [place] [facility] [address] [place] [address] [place] [facility] COMPREHENSI VE METABOLIC PANEL BILIRUBIN.TOT AL [MASS/VOLUME] IN SERUM OR PLASMA 0.6 mg/dL 0.2 - 1.2 10/05 Specimen Type: PLASMA No comment entered. Ordering Provider: ALBINO ARGUELLO Report Released Date/Time : Oct 04, 2024 03:13 PM Reporting Lab: [place] [facility] [address] [place] [address] Performin g Lab: [place] [facility] [address] [place] [address] [place] [facility] COMPREHENSI VE METABOLIC PANEL ALKALINE PHOSPHATASE [ENZYMATIC ACTIVITY/VOLU ME] IN SERUM OR PLASMA 145 U/L 40 - 150 10/05 Specimen Type: PLASMA No comment entered. Ordering Provider: ALBINO ARGUELLO Report Released Date/Time : Oct 04, 2024 03:13 PM Reporting Lab: [place] [facility] [address] [place] [address] Performin g Lab: [place] [facility] [address] [place] [address] [place] [facility] COMPREHENSI VE METABOLIC PANEL ASPARTATE AMINOTRANSFER ASE [ENZYMATIC ACTIVITY/VOLU ME] IN SERUM OR PLASMA 69 U/L 5 - 34 10/05 H Specimen Type: PLASMA No comment entered. Ordering Provider: ALBINO ARGUELLO Report Released Date/Time : Oct 04, 2024 03:13 PM Reporting Lab: [place] [facility] [address] [place] [address] Performin g Lab: [place] [facility] [address] [place] [address] [place] [facility] COMPREHENSI VE METABOLIC PANEL ALANINE AMINOTRANSFER ASE [ENZYMATIC ACTIVITY/VOLU ME] IN SERUM OR PLASMA 59 U/L 8 - 40 10/05 H Specimen Type: PLASMA No comment entered. Ordering Provider: ALBINO ARGUELLO Report Released Date/Time : Oct 04, 2024 03:13 PM Reporting Lab: [place] [facility] [address] [place] [address] Performin g Lab: [place] [facility] [address] [place] [address] [place] [facility] COMPREHENSI VE METABOLIC PANEL GLOMERULAR FILTRATION RATE/1.73 SQ M.PREDICTED [VOLUME RATE/AREA] IN SERUM, PLASMA OR BLOOD BY CREATININE-BA SED FORMULA (CKD-EPI 2020) 82 10/05 Specimen Type: PLASMA No comment entered. Ordering Provider: ALBINO ARGUELLO Report Released Date/Time : Oct 04, 2024 03:13 PM Reporting Lab: [place] [facility] [address] [place] [address] Performin g Lab: [place] [facility] [address] [place] [address] [place] [facility] CHOLESTEROL PANEL (PB) CHOLESTEROL [MASS/VOLUME] IN SERUM OR PLASMA 155 mg/dL 0 - 200 10/05 Specimen Type: PLASMA No comment entered. Ordering Provider: ALBINO ARGUELLO Report Released Date/Time : Oct 05, 2024 09:22 AM Reporting Lab: [place] [facility] [address] [place] [address] Performin g Lab: [place] [facility] [address] [place] [address] [facility] CHOLESTEROL PANEL (PB) TRIGLYCERIDE [MASS/VOLUME] IN SERUM OR PLASMA 134 mg/dL 0 - 150 10/05 Specimen Type: PLASMA No comment entered. Ordering Provider: ALBINO ARGUELLO Report Released Date/Time : Oct 05, 2024 09:22 AM Reporting Lab: [place] [facility] [address] [place] [address] Performin g Lab: [place] [facility] [address] [place] [address] [facility] CHOLESTEROL PANEL (PB) CHOLESTEROL IN LDL [MASS/VOLUME] IN SERUM OR PLASMA BY CALCULATION 74.2 mg/dL 10/05 Specimen Type: PLASMA No comment entered. Ordering Provider: ALBINO ARGUELLO Report Released Date/Time : Oct 05, 2024 09:22 AM Reporting Lab: [place] [facility] [address] [place] [address] Performin g Lab: [place] [facility] [address] [place] [address] [facility] CHOLESTEROL PANEL (PB) CHOLESTEROL IN HDL [MASS/VOLUME] IN SERUM OR PLASMA 54.0 mg/dL 40 10/05 H Specimen Type: PLASMA No comment entered. Ordering Provider: ALBINO ARGUELLO Report Released Date/Time : Oct 05, 2024 09:22 AM Reporting Lab: [place] [facility] [address] [place] [address] Performin g Lab: [place] [facility] [address] [place] [address] [facility] CHOLESTEROL PANEL (PB) CHOLESTEROL IN HDL/CHOLESTER OL.TOTAL [MASS RATIO] IN SERUM OR PLASMA 34.8 25 10/05 Specimen Type: PLASMA No comment entered. Ordering Provider: ALBINO ARGUELLO Report Released Date/Time : Oct 05, 2024 09:22 AM Reporting Lab: [place] [facility] [address] [place] [address] Performin g Lab: [place] [facility] [address] [place] [address] [facility] AMMONIA-PB AMMONIA [MOLES/VOLUME ] IN PLASMA 44 umol/L 13.5 - 35 09/10 H Specimen Type: PLASMA No comment entered. Ordering Provider: ALBINO ARGUELLO Report Released Date/Time : Sep 10, 2024 09:57 AM Reporting Lab: [place] [facility] [address] [place] [address] Performin g Lab: [place] [facility] [address] [place] [address] [facility] FOLATE (PB) FOLATE [MASS/VOLUME] IN SERUM OR PLASMA 9.6 ng/mL 7 - 20 09/10 Specimen Type: SERUM No comment entered. Ordering Provider: ALBINO ARGUELLO Report Released Date/Time : Sep 10, 2024 09:57 AM Reporting Lab: [place] [facility] [address] [place] [address] Performin g Lab: [place] [facility] [address] [place] [address] [facility] IRON/TIBC PROFILE IRON BINDING CAPACITY [MASS/VOLUME] IN SERUM OR PLASMA 440 ug/dL 09/10 Specimen Type: SERUM No comment entered. Ordering Provider: ALBINO ARGUELLO Report Released Date/Time : Sep 10, 2024 09:57 AM Reporting Lab: [place] [facility] [address] [place] [address] Performin g Lab: [place] [facility] [address] [place] [address] [facility] IRON/TIBC PROFILE TRANSFERRIN [MASS/VOLUME] IN SERUM OR PLASMA 352 mg/dL 163 - 344 09/10 H Specimen Type: SERUM No comment entered. Ordering Provider: ALBINO ARGUELLO Report Released Date/Time : Sep 10, 2024 09:57 AM Reporting Lab: [place] [facility] [address] [place] [address] [facility]: [place] [facility] [address] [place] [address] [facility] IRON/TIBC PROFILE IRON SATURATION [MASS FRACTION] IN SERUM OR PLASMA 13 20 - 50 09/10 L Specimen Type: SERUM No comment entered. Ordering Provider: ALBINO ARGUELLO Report Released Date/Time : Sep 10, 2024 09:57 AM Reporting Lab: [place] [facility] [address] [place] [address] [facility]: [place] [facility] [address] [place] [address] [facility] IRON/TIBC PROFILE IRON [MASS/VOLUME] IN SERUM OR PLASMA 56 ug/dL 65 - 175 09/10 L Specimen Type: SERUM No comment entered. Ordering Provider: ALBINO ARGUELLO Report Released Date/Time : Sep 10, 2024 09:57 AM Reporting Lab: [place] [facility] [address] [place] [address] [facility]: [place] [facility] [address] [place] [address] [facility] B12 COBALAMIN (VITAMIN B12) [MASS/VOLUME] IN SERUM OR PLASMA 715 pg/mL 213 - 816 09/10 Specimen Type: SERUM No comment entered. Ordering Provider: ALBINO ARGUELLO Report Released Date/Time : Sep 10, 2024 09:57 AM Reporting Lab: [place] [facility] [address] [place] [address] [facility]: [place] [facility] [address] [place] [address] [facility] HGA1C HEMOGLOBIN A1C/HEMOGLOBI N.TOTAL IN BLOOD 6.5 4.0 - 6.0 09/03 H Specimen Type: BLOOD No comment entered. Ordering Provider: ALBINO ARGUELLO Report Released Date/Time : Sep 16, 2023 09:26 AM Reporting Lab: [place] [facility] [address] [place] [address] 8 [facility]: [place] [facility] [address] [place] [address] [facility] CHOLESTEROL PANEL (PB) CHOLESTEROL [MASS/VOLUME] IN SERUM OR PLASMA 166 mg/dL 0 - 200 09/03 Specimen Type: PLASMA No comment entered. Ordering Provider: ALBINO ARGUELLO Report Released Date/Time : Sep 16, 2023 09:26 AM Reporting Lab: [place] [facility] [address] [place] [address] 8 [facility]: [place] [facility] [address] [place] [address] [facility] CHOLESTEROL PANEL (PB) TRIGLYCERIDE [MASS/VOLUME] IN SERUM OR PLASMA 148 mg/dL 0 - 150 09/03 Specimen Type: PLASMA No comment entered. Ordering Provider: ALBINO ARGUELLO Report Released Date/Time : Sep 16, 2023 09:26 AM Reporting Lab: [place] [facility] [address] [place] [address] [facility]: [place] [facility] [address] [place] [address] 8 [facility] CHOLESTEROL PANEL (PB) CHOLESTEROL IN LDL [MASS/VOLUME] IN SERUM OR PLASMA BY CALCULATION 86.4 mg/dL 09/03 Specimen Type: PLASMA No comment entered. Ordering Provider: ALBINO ARGUELLO Report Released Date/Time : Sep 16, 2023 09:26 AM Reporting Lab: [place] [facility] [address] [place] [address] 8 [facility]: [place] [facility] [address] [place] [address] 8 [facility] CHOLESTEROL PANEL (PB) CHOLESTEROL IN HDL [MASS/VOLUME] IN SERUM OR PLASMA 50.0 mg/dL 40 09/03 H Specimen Type: PLASMA No comment entered. Ordering Provider: ALBINO ARGUELLO Report Released Date/Time : Sep 16, 2023 09:26 AM Reporting Lab: [place] [facility] [address] [place] [address] [facility]: [place] [facility] [address] [place] [address] [facility] CHOLESTEROL PANEL (PB) CHOLESTEROL IN HDL/CHOLESTER OL.TOTAL [MASS RATIO] IN SERUM OR PLASMA 30.1 25 09/03 Specimen Type: PLASMA No comment entered. Ordering Provider: ALBINO ARGUELLO Report Released Date/Time : Sep 16, 2023 09:26 AM Reporting Lab: [place] [facility] [address] [place] [address] [facility]: [place] [facility] [address] [place] [address] [facility] COMPREHENSI VE METABOLIC PANEL CREATININE [MASS/VOLUME] IN SERUM OR PLASMA 0.93 mg/dL 0.7 - 1.3 09/03 Specimen Type: PLASMA No comment entered. Ordering Provider: ALBINO ARGUELLO Report Released Date/Time : Sep 16, 2023 09:26 AM Reporting Lab: [place] [facility] [address] [place] [address] 8 [facility]: [place] [facility] [address] [place] [address] [facility] COMPREHENSI VE METABOLIC PANEL UREA NITROGEN [MASS/VOLUME] IN SERUM OR PLASMA 16 mg/dL 9 - 25 09/03 Specimen Type: PLASMA No comment entered. Ordering Provider: ALBINO ARGUELLO Report Released Date/Time : Sep 16, 2023 09:26 AM Reporting Lab: [place] [facility] [address] [place] [address] 8 [facility]: [place] [facility] [address] [place] [address] 8 [facility] COMPREHENSI VE METABOLIC PANEL GLUCOSE [MASS/VOLUME] IN SERUM OR PLASMA 116 mg/dL 72 - 99 09/03 H Specimen Type: PLASMA No comment entered. Ordering Provider: ALBINO ARGUELLO Report Released Date/Time : Sep 16, 2023 09:26 AM Reporting Lab: [place] [facility] [address] [place] [address] 8 [facility]: [place] [facility] [address] [place] [address] 8 [facility] COMPREHENSI VE METABOLIC PANEL SODIUM [MOLES/VOLUME ] IN SERUM OR PLASMA 139 meq/L 136 - 145 09/03 Specimen Type: PLASMA No comment entered. Ordering Provider: ALBINO ARGUELLO Report Released Date/Time : Sep 16, 2023 09:26 AM Reporting Lab: [place] [facility] [address] [place] [address] 8 [facility]: [place] [facility] [address] [place] [address] 8 [facility] COMPREHENSI VE METABOLIC PANEL POTASSIUM [MOLES/VOLUME ] IN SERUM OR PLASMA 4.0 meq/L 3.5 - 5 09/03 Specimen Type: PLASMA No comment entered. Ordering Provider: ALBINO ARGUELLO Report Released Date/Time : Sep 16, 2023 09:26 AM Reporting Lab: [place] [facility] [address] [place] [address] 8 [facility]: [place] [facility] [address] [place] [address] [facility] COMPREHENSI VE METABOLIC PANEL CHLORIDE [MOLES/VOLUME ] IN SERUM OR PLASMA 104 meq/L 98 - 107 09/03 Specimen Type: PLASMA No comment entered. Ordering Provider: ALBINO ARGUELLO Report Released Date/Time : Sep 16, 2023 09:26 AM Reporting Lab: [place] [facility] [address] [place] [address] [facility]: [place] [facility] [address] [place] [address] 8 [facility] COMPREHENSI VE METABOLIC PANEL CARBON DIOXIDE, TOTAL [MOLES/VOLUME ] IN SERUM OR PLASMA 23 meq/L 22 - 31 09/03 Specimen Type: PLASMA No comment entered. Ordering Provider: ALBINO ARGUELLO Report Released Date/Time : Sep 16, 2023 09:26 AM Reporting Lab: [place] [facility] [address] [place] [address] 8 [facility]: [place] [facility] [address] [place] [address] [facility] COMPREHENSI VE METABOLIC PANEL CALCIUM [MASS/VOLUME] IN SERUM OR PLASMA 9.0 mg/dL 8.4 - 10.4 09/03 Specimen Type: PLASMA No comment entered. Ordering Provider: ALBINO ARGUELLO Report Released Date/Time : Sep 16, 2023 09:26 AM Reporting Lab: [place] [facility] [address] [place] [address] [facility]: [place] [facility] [address] [place] [address] [facility] COMPREHENSI VE METABOLIC PANEL PROTEIN [MASS/VOLUME] IN SERUM OR PLASMA 7.9 g/dL 6 - 8.6 09/03 Specimen Type: PLASMA No comment entered. Ordering Provider: ALBINO ARGUELLO Report Released Date/Time : Sep 16, 2023 09:26 AM Reporting Lab: [place] [facility] [address] [place] [address] 8 [facility]: [place] [facility] [address] [place] [address] 8 [facility] COMPREHENSI VE METABOLIC PANEL ALBUMIN [MASS/VOLUME] IN SERUM OR PLASMA 4.1 g/dL 3.4 - 5 09/03 Specimen Type: PLASMA No comment entered. Ordering Provider: ALBINO ARGUELLO Report Released Date/Time : Sep 16, 2023 09:26 AM Reporting Lab: [place] [facility] [address] [place] [address] [facility]: [place] [facility] [address] [place] [address] [facility] COMPREHENSI VE METABOLIC PANEL BILIRUBIN.TOT AL [MASS/VOLUME] IN SERUM OR PLASMA 0.5 mg/dL 0.2 - 1.2 09/03 Specimen Type: PLASMA No comment entered. Ordering Provider: ALBINO ARGUELLO Report Released Date/Time : Sep 16, 2023 09:26 AM Reporting Lab: [place] [facility] [address] [place] [address] [facility]: [place] [facility] [address] [place] [address] [facility] COMPREHENSI VE METABOLIC PANEL ALKALINE PHOSPHATASE [ENZYMATIC ACTIVITY/VOLU ME] IN SERUM OR PLASMA 180 U/L 40 - 150 09/03 H Specimen Type: PLASMA No comment entered. Ordering Provider: ALBINO ARGUELLO Report Released Date/Time : Sep 16, 2023 09:26 AM Reporting Lab: [place] [facility] [address] [place] [address] [facility]: [place] [facility] [address] [place] [address] [facility] COMPREHENSI VE METABOLIC PANEL ASPARTATE AMINOTRANSFER ASE [ENZYMATIC ACTIVITY/VOLU ME] IN SERUM OR PLASMA 102 U/L 5 - 34 09/03 H Specimen Type: PLASMA No comment entered. Ordering Provider: ALBINO ARGUELLO Report Released Date/Time : Sep 16, 2023 09:26 AM Reporting Lab: [place] [facility] [address] [place] [address] [facility]: [place] [facility] [address] [place] [address] 8 [facility] COMPREHENSI VE METABOLIC PANEL ALANINE AMINOTRANSFER ASE [ENZYMATIC ACTIVITY/VOLU ME] IN SERUM OR PLASMA 101 U/L 8 - 40 09/03 H Specimen Type: PLASMA No comment entered. Ordering Provider: ALBINO ARGUELLO Report Released Date/Time : Sep 16, 2023 09:26 AM Reporting Lab: [place] [facility] [address] [place] [address] 8 [facility]: [place] [facility] [address] [place] [address] [facility] COMPREHENSI VE METABOLIC PANEL GLOMERULAR FILTRATION RATE/1.73 SQ M.PREDICTED [VOLUME RATE/AREA] IN SERUM, PLASMA OR BLOOD BY CREATININE-BA SED FORMULA ([id number] 2020) 86 09/03 Specimen Type: PLASMA No comment entered. Ordering Provider: ALBINO ARGUELLO Report Released Date/Time : Sep 16, 2023 09:26 AM Reporting Lab: [place] [facility] [address] [place] [address] 8 [facility]: [place] [facility] [address] [place] [address] [facility] CBC LEUKOCYTES [#/VOLUME] IN BLOOD BY AUTOMATED COUNT 10.2 10*3/u L 3.6 - 11.2 09/03 Specimen Type: BLOOD No comment entered. Ordering Provider: ALBINO ARGUELLO Report Released Date/Time : Mar 12, 2024 10:06 AM Reporting Lab: [place] [facility] [address] [place] [address] 8 [facility]: [place] [facility] [address] [place] [address] [facility] CBC ERYTHROCYTES [#/VOLUME] IN BLOOD BY AUTOMATED COUNT 3.22 10*6/u L 4.10 - 5.70 09/03 L Specimen Type: BLOOD No comment entered. Ordering Provider: ALBINO ARGUELLO Report Released Date/Time : Mar 12, 2024 10:06 AM Reporting Lab: [place] [facility] [address] [place] [address] 8 [facility]: [place] [facility] [address] [place] [id number] [facility] CBC HEMOGLOBIN [MASS/VOLUME] IN BLOOD 9.3 g/dL 13.1 - 16.8 09/03 L Specimen Type: BLOOD No comment entered. Ordering Provider: ALBINO ARGUELLO Report Released Date/Time : Mar 12, 2024 10:06 AM Reporting Lab: [place] [facility] [address] [place] [address] 8 [facility]: [place] [facility] [address] [place] [address] 8 [facility] CBC HEMATOCRIT [VOLUME FRACTION] OF BLOOD 30.4 38.2 - 48.4 09/03 L Specimen Type: BLOOD No comment entered. Ordering Provider: ALBINO ARGUELLO Report Released Date/Time : Mar 12, 2024 10:06 AM Reporting Lab: [place] [facility] [address] [place] [address] 8 [facility]: [place] [facility] [address] [place] [address] 8 [facility] CBC MCV [ENTITIC VOLUME] BY AUTOMATED COUNT 94.4 fL 80.0 - 100.0 09/03 Specimen Type: BLOOD No comment entered. Ordering Provider: ALBINO ARGUELLO Report Released Date/Time : Mar 12, 2024 10:06 AM Reporting Lab: [place] [facility] [address] [place] [address] 8 [facility]: [place] [facility] [address] [place] [address] 8 [facility] CBC MCH [ENTITIC MASS] BY AUTOMATED COUNT 28.9 pg 27.0 - 34.0 09/03 Specimen Type: BLOOD No comment entered. Ordering Provider: ALBINO ARGUELLO Report Released Date/Time : Mar 12, 2024 10:06 AM Reporting Lab: [place] [facility] [address] [place] [address] 8 [facility]: [place] [facility] [address] [place] [address] 8 [facility] CBC MCHC [MASS/VOLUME] BY AUTOMATED COUNT 30.6 g/dL 33.0 - 36.0 09/03 L Specimen Type: BLOOD No comment entered. Ordering Provider: ALBINO ARGUELLO Report Released Date/Time : Mar 12, 2024 10:06 AM Reporting Lab: [place] [facility] [address] [place] [address] 8 [facility]: [place] [facility] [address] [place] [address] [facility] CBC PLATELETS [#/VOLUME] IN BLOOD BY AUTOMATED COUNT 261 10*3/u L 150 - 400 09/03 Specimen Type: BLOOD No comment entered. Ordering Provider: ALBINO ARGUELLO Report Released Date/Time : Mar 12, 2024 10:06 AM Reporting Lab: [place] [facility] [address] [place] [address] 8 [facility]: [place] [facility] [address] [place] [address] 8 [facility] CBC PLATELET MEAN VOLUME [ENTITIC VOLUME] IN BLOOD BY AUTOMATED COUNT 11.4 fL 7.5 - 11.2 09/03 H Specimen Type: BLOOD No comment entered. Ordering Provider: ALBINO ARGUELLO Report Released Date/Time : Mar 12, 2024 10:06 AM Reporting Lab: [place] [facility] [address] [place] [address] 8 [facility]: [place] [facility] [address] [place] [address] 8 [facility] CBC ERYTHROCYTE DISTRIBUTION WIDTH [RATIO] BY AUTOMATED COUNT 18.6 11.8 - 15.1 09/03 H Specimen Type: BLOOD No comment entered. Ordering Provider: ALBINO ARGUELLO Report Released Date/Time : Mar 12, 2024 10:06 AM Reporting Lab: [place] [facility] [address] [place] [address] 8 [facility]: [place] [facility] [address] [place] [address] 8 [facility] CBC LYMPHOCYTES/1 00 LEUKOCYTES IN BLOOD BY AUTOMATED COUNT 8.3 09/03 Specimen Type: BLOOD No comment entered. Ordering Provider: ALBINO ARGUELLO Report Released Date/Time : Mar 12, 2024 10:06 AM Reporting Lab: [place] [facility] [address] [place] [address] 8 [facility]: [place] [facility] [address] [place] [address] 8 [facility] CBC MONOCYTES/100 LEUKOCYTES IN BLOOD BY AUTOMATED COUNT 8.8 09/03 Specimen Type: BLOOD No comment entered. Ordering Provider: ALBINO ARGUELLO Report Released Date/Time : Mar 12, 2024 10:06 AM Reporting Lab: [place] [facility] [address] [place] [address] 8 [facility]: [place] [facility] [address] [place] [address] 8 [facility] CBC NEUTROPHILS/1 00 LEUKOCYTES IN BLOOD BY AUTOMATED COUNT 76.9 09/03 Specimen Type: BLOOD No comment entered. Ordering Provider: ALBINO ARGUELLO Report Released Date/Time : Mar 12, 2024 10:06 AM Reporting Lab: [place] [facility] [address] [place] [address] 8 [facility]: [place] [facility] [address] [place] [address] 8 [facility] CBC EOSINOPHILS/1 00 LEUKOCYTES IN BLOOD BY AUTOMATED COUNT 3.7 09/03 Specimen Type: BLOOD No comment entered. Ordering Provider: ALBINO ARGUELLO Report Released Date/Time : Mar 12, 2024 10:06 AM Reporting Lab: [place] [facility] [address] [place] [address] 8 [facility]: [place] [facility] [address] [place] [address] 8 [facility] CBC BASOPHILS/100 LEUKOCYTES IN BLOOD BY AUTOMATED COUNT 0.6 09/03 Specimen Type: BLOOD No comment entered. Ordering Provider: ALBINO ARGUELLO Report Released Date/Time : Mar 12, 2024 10:06 AM Reporting Lab: [place] [facility] [address] [place] [address] 8 [facility]: [place] [facility] [address] [place] [address] 8 [facility] CBC LYMPHOCYTES [#/VOLUME] IN BLOOD BY AUTOMATED COUNT 0.85 10*3/u L 0.77 - 4.50 09/03 Specimen Type: BLOOD No comment entered. Ordering Provider: ALBINO ARGUELLO Report Released Date/Time : Mar 12, 2024 10:06 AM Reporting Lab: [place] [facility] [address] [place] [address] 8 [facility]: [place] [facility] [address] [place] [address] 8 [facility] CBC MONOCYTES [#/VOLUME] IN BLOOD BY AUTOMATED COUNT 0.90 10*3/u L 0.19 - 0.8 09/03 H Specimen Type: BLOOD No comment entered. Ordering Provider: ALBINO ARGUELLO Report Released Date/Time : Mar 12, 2024 10:06 AM Reporting Lab: [place] [facility] [address] [place] [address] 8 [facility]: [place] [facility] [address] [place] [address] 8 [facility] CBC NEUTROPHILS [#/VOLUME] IN BLOOD BY AUTOMATED COUNT 7.85 10*3/u L 2.10 - 8.00 09/03 Specimen Type: BLOOD No comment entered. Ordering Provider: ALBINO ARGUELLO Report Released Date/Time : Mar 12, 2024 10:06 AM Reporting Lab: [place] [facility] [address] [place] [address] 8 [facility]: [place] [facility] [address] [place] [address] 8 [facility] CBC EOSINOPHILS [#/VOLUME] IN BLOOD BY AUTOMATED COUNT 0.38 10*3/u L 0.00 - 0.60 09/03 Specimen Type: BLOOD No comment entered. Ordering Provider: ALBINO ARGUELLO Report Released Date/Time : Mar 12, 2024 10:06 AM Reporting Lab: [place] [facility] [address] [place] [address] 8 [facility]: [place] [facility] [address] [place] [address] 8 [facility] CBC BASOPHILS [#/VOLUME] IN BLOOD BY AUTOMATED COUNT 0.06 10*3/u L 0.00 - 0.20 09/03 Specimen Type: BLOOD No comment entered. Ordering Provider: ALBINO ARGUELLO Report Released Date/Time : Mar 12, 2024 10:06 AM Reporting Lab: [place] [facility] [address] [place] [address] 8 [facility]: [place] [facility] [address] [place] [address] 8 [facility] CBC IMMATURE GRANULOCYTES/ 100 LEUKOCYTES IN BLOOD BY AUTOMATED COUNT 1.7 09/03 Specimen Type: BLOOD No comment entered. Ordering Provider: ALBINO ARGUELLO Report Released Date/Time : Mar 12, 2024 10:06 AM Reporting Lab: [place] [facility] [address] [place] [address] 8 [facility]: [place] [facility] [address] [place] [address] 8 [facility] [place] CBC IMMATURE GRANULOCYTES [#/VOLUME] IN BLOOD BY AUTOMATED COUNT 0.17 10*3/u L 0.00 - 0.05 09/03 H Specimen Type: BLOOD No comment entered. Ordering Provider: ALBINO ARGUELLO Report Released Date/Time : Mar 12, 2024 10:06 AM Reporting Lab: [place] [facility] [address] [place] [address] Performin g Lab: [place] [facility] [address] [place] [address] [facility] [place] [facility] Vital Signs Combined list of inpatient and outpatient Vital Signs from Department of Defense and Veterans Affairs, ranging from 12 months to all on record, depending upon the facility. Vital Sign Value Date Comments Source SYSTOLIC BLOOD PRESSURE 149 09/10/2024 09:37:00 [place] [facility] DIASTOLIC BLOOD PRESSURE 74 09/10/2024 09:37:00 [place] [facility] PULSE OXIMETRY 98 09/10/2024 09:37:00 [facility] WEIGHT 220.8 09/10/2024 09:37:00 [place] [facility] BMI 32 kg/m2 09/10/2024 09:37:00 [facility] PAIN 4 09/10/2024 09:37:00 [facility] [facility] PULSE 63 09/10/2024 09:37:00 [place] [facility] RESPIRATION 18 09/10/2024 09:37:00 [place] [facility] SYSTOLIC BLOOD PRESSURE 129 03/12/2024 09:38:00 [place] [facility] DIASTOLIC BLOOD PRESSURE 76 03/12/2024 09:38:00 [place] [facility] PULSE OXIMETRY 96 03/12/2024 09:38:00 [facility] WEIGHT 227.9 03/12/2024 09:38:00 [place] [facility] BMI 33 kg/m2 03/12/2024 09:38:00 [facility] PAIN 3 03/12/2024 09:38:00 [facility] HEIGHT 70.0 03/12/2024 09:38:00 [place] [facility] TEMPERATURE 98.3 03/12/2024 09:38:00 [facility] PULSE 67 03/12/2024 09:38:00 [facility] RESPIRATION 20 03/12/2024 09:38:00 [facility] Encounters Combined list of: 1) Encounters from Department of Veterans Affairs facilities going backup to the last 18 months, not all VA inpatient encounters are included; 2) Encounters from the Department of Defense facilities going backup to 280 months. Location Location Details Encounter Type Encounter Number Reason For Visit Attending Provider ADM Date DC Date Status Disposition Source [facility] OFF/OP EST NOVEMBER X REQ PHY/QHP [id number] Diagnos is: ICD-10- CM R21 Rash and other nonspec ific skin eruptio DOROTEO Brown 06/12 [facility] Outpatient Encounter [id number] 07[facility]28 [facility] EST NOVEM[facility] X REQ PHY/QHP [id number] Diagnos is: ICD-10- CM K92.2 Gastroi ntestin al hemorrh age, unspeci fied Philip CARL 09/04 [facility] Outpatient Encounter [id number] BERONICA CASTILLO 09/07 [facility] Outpatient Encounter [id number] 09/09 [facility] EST MOD 30 MIN [id number] Diagnos is: ICD-10- CM E11.9 Type 2 diabete s mellitu s without complic ations Oswald ARGUELLO 09/15 [facility] Outpatient Encounter [id number] 10/05 [facility] Outpatient Encounter [id number] 10/16 [facility] Outpatient Encounter [id number] Oswald CARL L 10/21 [facility] Outpatient Encounter [id number] 10/22 [facility] Outpatient Encounter [id number] 11/04 [facility] Outpatient Encounter [id number] 11/17 [facility] Outpatient Encounter [id number] 02/10 [facility] OFFICE O/P EST HI 40 MIN [id number] Diagnos is: ICD-10- CM I10 Essenti al (primar y) hyperte nsOswald Vincent 03/12 [facility] Outpatient Encounter [id number] 03/19 [facility] Outpatient Encounter [id number] 03/24 [facility] Outpatient Encounter [id number] 03/31 [facility] HC PRO PHONE CALL 5-10 MIN [id number] Diagnos is: ICD-10- CM Z71.89 Other specifi ed chemical dependency counselor NICOLE Dalal 04/02 [facility] Outpatient Encounter [id number] 04/05 [facility] Outpatient Encounter [id number] 04/20 [facility] Outpatient Encounter [id number] WHITE,ERNESTO SSA D 04/26 [facility] Outpatient Encounter [id number] 05/06 [facility] Outpatient Encounter [id number] 05/06 [facility] Outpatient Encounter [id number] 05/12 [facility] Outpatient Encounter [id number] 05/13 [facility] Outpatient Encounter [id number] 05/13 [facility] COMPRE OPH EXAM NEW PT 1/> [id number] Diagnos is: ICD-10- CM H04.123 Dry eye syndrom e of bilater al lacrima l glands LEONOR VELAZQUEZ LER N 05/19 [facility] Outpatient Encounter [id number] 06/21 [facility] PATIENT [id number] Diagnos is: ICD-10- CM H04.123 Dry eye syndrom e of bilater al lacrima l glands MARCUSLEONOR CLARA N 06/22 [facility] Outpatient Encounter [id number] 07/05 [facility] En[facility] [id number] JERRICA HENRY L 08/04 [facility] Outpatient Encounter [id number] 09/01 [facility] Outpatient Encounter [id number] 09/01 [facility] En[facility] [id number] 09/10 [facility] OFFICE O/P EST MOD 30 MIN [id number] Diagnos is: ICD-10- CM E11.9 Type 2 diabete s mellitu s without complic ations Oswald ARGUELLO 09/10 [facility] Outpatient Encounter [id number] 09/10 [facility] En[facility] [id number] 09/20 [facility] Encounter [id number] 09/21 [facility] Encounter [id number] 09/23 [facility] Outpatient Encounter [id number] 10/01 [facility] Outpatient Encounter [id number] 10/11 [facility] Outpatient Encounter [id number] 10/13 [facility] Encounter [id number] 11/01 [facility] Outpatient Encounter [id number] 11/02 [facility] Outpatient Encounter [id number] 11/03 [facility] Encounter [id number] 11/10 [facility] Outpatient Encounter [id number] 11/16 [facility] Outpatient Encounter [id number] 11/25 [facility] Outpatient Encounter [id number] 11/26 [facility] Outpatient Encounter [id number] 11/30 [facility] Outpatient Encounter [id number] 11/30 [facility] Outpatient Encounter [id number] 12/01 [facility] Social History Combined list of available smoking, tobacco, and other social history from Department of Defense and Veterans Affairs facilities. 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 Additional future care activities may be listed in the Assessment and Plan section. Date/Time Care Activity Care Activity Detail Facili ty 02/28/2025 AMBULATORY - MEDICINE AMBULATORY - MEDICI NE [facility]
--- NOTE | 2024-12-11 13:49 | USR_ITS ---
PROCEDURE INFORMATION: Exam: US Retroperitoneal, Complete, Kidneys and Bladder Exam date and time: 12/11/2024 6:47 PM Age: 74 years old Clinical indication: Condition or disease; Kidney or ureter condition; Other: Victoriano TECHNIQUE: Imaging protocol: Real-time ultrasound of the retroperitoneum with image documentation. Complete exam focused on the bilateral kidneys and urinary bladder. COMPARISON: US abdomen complete* [id number] 07/15/2020 07:15 FINDINGS: Right kidney: Normal. No stones. No hydronephrosis. 10 cm Left kidney: Normal. No stones. No hydronephrosis. 9.6 cm Urinary bladder: Hillman balloon/catheter noted and bladder was not distended. US/US renal BI* [id number] IMPRESSION: No acute sonographic findings.
--- NOTE | 2024-12-11 13:51 | PM.CONSULT ---
Providers/Reason For Consult Consulting Physician/Specialty*: maria t Nephrology Reason for Consult*: JETT Attending Physician: Adela Huston MD Primary Care Provider: Maribel Dalton MD History of Present Illness History of Present Illness Barrera Menendez is a 74 year old male Patient is a 74-year-old male with past medical history of invasive prostate cancer, liver cirrhosis, esophageal varices, hypertension recently underwent bowel resection, diabetes presented to the hospital due to generalized weakness, nausea vomiting and decreased p.o. intake. Patient was noted to be hypotensive and hypoglycemic. Patient started on IV fluids. Also noted to have ascites on CT. Patient's baseline creatinine seems to be normal but now has JETT with a creatinine of 4.2. CO2 was 16 sodium level was 129. Patient received 1 L normal saline in the ED Home medications included hydrochlorothiazide metformin empagliflozin, losartan. s Review of Systems Narrative: negative Medications/Allergies Home Medications ?Medication ?Instructions ?Recorded ?Confirmed ?Last Taken ?Type amlodipine 10 mg tablet 10 mg PO DAILY 12/26/20 12/11/24 12/10/24 History atenolol 100 mg tablet 100 mg PO DAILY 12/26/20 12/11/24 12/10/24 History hydrochlorothiazide 25 mg tablet 25 mg PO DAILY 01/17/22 12/11/24 12/10/24 History metformin 1,000 mg tablet 1,000 mg PO BID 04/05/22 12/11/24 12/10/24 History empagliflozin 25 mg tablet 12.5 mg PO DAILY 09/05/23 12/11/24 12/10/24 History hydralazine 25 mg tablet 25 mg PO TID PRN Blood Pressure 09/05/23 12/11/24 Unknown History losartan 100 mg tablet 100 mg PO DAILY 09/05/23 12/11/24 12/10/24 History pravastatin 40 mg tablet 40 mg PO QPM 09/05/23 12/11/24 12/10/24 History carvedilol 25 mg tablet 25 mg PO BID 12/11/24 12/11/24 12/10/24 History donepezil 10 mg tablet 5 mg PO BEDTIME 12/11/24 12/11/24 12/10/24 History Allergies Allergy/AdvReac Type Severity Reaction Status Date / Time No Known Allergies Allergy Verified 11/03/24 11:51 PFSH Acute PFSH: Medical History UTI (urinary tract infection) Thrombocytopathia Leukopenia JETT (acute kidney injury) Hematochezia Hyperlipidemia Diabetes Hypertension Prostate cancer Surgical History Port-A-Cath in place (01/03/21) History of ankle surgery Family History Father Stroke Grandfather Stroke CAD (coronary artery disease) Family/Other Cancer Uncle - Liver cancer 2 other uncles with unknown cancer Mother Diabetes Mother No problems noted. Grandmother Diabetes Sister Diabetes Denies family history of Clotting disorder Dementia Hyperlipidemia Psychiatric illness Chronic kidney disease (CKD) Suicide Anesthesia complication Bleeding disorder Lung disease Hypertension Social History Smoking and tobacco/nicotine status: never used tobacco/nicotine Alcohol intake: former Substance/Drug Use: never Vitals/I&O/Wt Last Vital Signs Temp 97.8 F 12/11/24 09:06 Pulse 70 12/11/24 13:45 Resp 15 12/11/24 13:45 BP 94/48 12/11/24 13:45 Pulse Ox 93 12/11/24 13:45 O2 Del Method Room Air 12/11/24 09:06 12/10/24 12/11/24 12/11/24 22:59 06:59 14:59 Intake Total 1882.45 / 1882.45 Balance 1882.45 / 1882.45 Weight last 48 hrs Weight 104.326 kg Physical Exam Narrative: awake , alert , no distress PEERLA S12 RRR per report Lungs clear per report Abd - soft , distended no edema Urinary Catheter Management: Hillman: Cath Placed During This Visit: yes Urinary Catheter Date of Insertion: 12/11/24 Urinary Catheter Time of Insertion: 10:13 Data 12/11/24 18:17 12/11/24 18:17 A&P Assessment and plan (1) Acute kidney injury: Plan 1. Acute kidney injury: Baseline creatinine seems to be normal about couple of months ago now has JETT with a creatinine of 4.2, associated with metabolic acidosis. Patient oliguric. Suspect etiology likely from prerenal from poor p.o. intake in the setting of underlying liver cirrhosis. Check urine electrolytes. HRS also possible. - Hold HCTZ, CARMENCITA inhibitor and empagliflozin - Start gentle IV fluids, add IV albumin and midodrine p.o. - No acute indication for HD currently, if renal function fails to improve we will discuss temporary hemodialysis 2. Liver cirrhosis: Diuretics on hold, getting IV albumin and midodrine for now 3. Hyponatremia: Mild in the setting of liver cirrhosis, continue to monitor 4. Metabolic acidosis, will give 2 Amps of IV bicarbonate push Patient evaluated using audiovisual cart. Time spent 40 minute PDMP PDMP Reviewed: Not Reviewed Consult Attestations Medical Necessity Statement: per birdie Coding Level of Care Code Acute Code for g Fwd Diagnoses Acute kidney injury N17.9
--- NOTE | 2024-12-11 14:55 | PC.NURSE ---
received albumin from pharmacy @2842; delayed admin from @1400
[2024-12-11] MEDS: albumin 25 G/100 ML BAG 60 G IV ×2 (15:12→21:38)
[2024-12-11] MEDS: midodrine 5 mg TABLET 10 MG PO ×2 (15:13→21:37)
--- NOTE | 2024-12-11 16:55 | PM.HP ---
Providers/Chief Complaint Admitting Physician: Adela Huston MD Primary Care Provider: Maribel Dalton MD Chief Complaint: Low BS Low BP History of Present Illness Barrera Menendez is a 74 year old male With past medical history of invasive prostate cancer diagnosed in 2019 currently in remission, liver cirrhosis, esophageal varices, hypertension, recent bowel resection on December 02, diabetes mellitus presented to the hospital today for complaint of weakness, hypoglycemia, hypotension, nausea, vomiting. Patient is provides the history. He states that he had bowel resection done last week and was discharged from the hospital. During hospital stay NG tube was placed. His potassium was low. White count was high. Eventually once stable he was discharged. He states that he has been eating mashed potatoes and drinking Ensure. Yesterday however he did not have much to eat. This morning she saw that he was appearing very weak and was not responding. She checked his blood sugar which was 73. She gave him sugar under the tongue which did not improve the blood sugar therefore she proceeded to give him honey. Blood pressure was 66/46. Blood pressure was very low. They decided to come to the hospital. He states today go to [facility] their care and follow-up with gastroenterology there. We have requested records. Patient does have ascites however has not had paracentesis done in the past. Patient's states that he has stage IV liver cirrhosis. In the ER he was found to have WBC count 19,000, hemoglobin 7.3, platelets 435, 13% bands, sodium 129, CO2/bicarb 16, anion gap 22.1, BUN 94, creatinine 4.2. BNP 1033. Patient on room air at this time saturating 97% however does state he feels short of breath and has difficulty breathing occasionally. In the ER he was given 1 L normal saline bolus. Nephrology was consulted. Medications/Allergies Home Medications ?Medication ?Instructions ?Recorded ?Confirmed ?Last Taken ?Type amlodipine 10 mg tablet 10 mg PO DAILY 12/26/20 12/11/24 12/10/24 History atenolol 100 mg tablet 100 mg PO DAILY 12/26/20 12/11/24 12/10/24 History hydrochlorothiazide 25 mg tablet 25 mg PO DAILY 01/17/22 12/11/24 12/10/24 History metformin 1,000 mg tablet 1,000 mg PO BID 04/05/22 12/11/24 12/10/24 History empagliflozin 25 mg tablet 12.5 mg PO DAILY 09/05/23 12/11/24 12/10/24 History hydralazine 25 mg tablet 25 mg PO TID PRN Blood Pressure 09/05/23 12/11/24 Unknown History losartan 100 mg tablet 100 mg PO DAILY 09/05/23 12/11/24 12/10/24 History pravastatin 40 mg tablet 40 mg PO QPM 09/05/23 12/11/24 12/10/24 History carvedilol 25 mg tablet 25 mg PO BID 12/11/24 12/11/24 12/10/24 History donepezil 10 mg tablet 5 mg PO BEDTIME 12/11/24 12/11/24 12/10/24 History Allergies Allergy/AdvReac Type Severity Reaction Status Date / Time No Known Allergies Allergy Verified 11/03/24 11:51 PFSH Acute PFSH: Medical History UTI (urinary tract infection) Thrombocytopathia Leukopenia JETT (acute kidney injury) Hematochezia Hyperlipidemia Diabetes Hypertension Prostate cancer Surgical History Port-A-Cath in place (01/03/21) History of ankle surgery Family History Father Stroke Grandfather Stroke CAD (coronary artery disease) Family/Other Cancer Uncle - Liver cancer 2 other uncles with unknown cancer Mother Diabetes Mother No problems noted. Grandmother Diabetes Sister Diabetes Denies family history of Clotting disorder Dementia Hyperlipidemia Psychiatric illness Chronic kidney disease (CKD) Suicide Anesthesia complication Bleeding disorder Lung disease Hypertension Social History Smoking and tobacco/nicotine status: never used tobacco/nicotine Alcohol intake: former Substance/Drug Use: never Vitals/I&O/Wt Last Vital Signs Temp 97.8 F 12/11/24 09:06 Pulse 70 12/11/24 16:25 Resp 18 12/11/24 16:25 BP 97/49 12/11/24 16:25 Pulse Ox 97 12/11/24 16:25 O2 Del Method Room Air 12/11/24 09:06 12/11/24 12/11/24 12/11/24 06:59 14:59 22:59 Intake Total 1881.45 / 1881.45 110 / 1991.45 Output Total 50 / 50 Balance 1881.45 / 1881.45 60 / 1941.45 Weight last 48 hrs Weight 104.326 kg Physical Exam Narrative: General: Alert oriented x3, patient seen laying in bed appearing comfortable, saturating 96% on room air. HEENT: Normocephalic, atraumatic, EOMI, no acute respiratory distress breathing comfortably no conversational dyspnea. Cardio: Regular rate rhythm, normal S1-S2, Respiratory: To auscultation bilaterally no wheezes no rhonchi GI: Abdomen soft, distended, ascites present fluid wave positive, laparoscopic incisions do not appear infected, mildly tender to palpation, no gross guarding Behavior: Appropriate and cooperative Extremities: No edema bilateral lower extremities Urinary Catheter Management: Hillman: Cath Placed During This Visit: yes Urinary Catheter Date of Insertion: 12/11/24 Urinary Catheter Time of Insertion: 10:13 Data 12/11/24 09:12 12/11/24 09:12 A&P Assessment and plan (1) Acute renal failure: (2) RIVERA (nonalcoholic steatohepatitis): (3) Transaminitis: (4) Cirrhosis: (5) Acute kidney injury: (6) Malignant neoplasm of prostate: (7) Generalized weakness: (8) Nausea & vomiting: (9) Dehydration: (10) Hepatorenal syndrome: (11) Hypotension: (12) Leukocytosis: Plan #Nausea vomiting #Dehydration #Hypotension most likely secondary to dehydration #JETT, new onset creatinine 4.2, BUN 94 #Abdominal ascites #Leukocytosis, bandemia, SBP not ruled out #History of liver cirrhosis, esophageal varices status post banding x 2 #History of prostate cancer in remission #Chronic anemia hemoglobin 7.3 ? Start albumin every 8 hours, add midodrine 10 3 times daily ? Hold home antihypertensives ? Hold home metformin, empagliflozin ? Continue on gentle fluid hydration with normal saline 75 cc/h ? This could be possibly hepatorenal syndrome? Versus nausea vomiting dehydration causing an JETT. ? Check urinalysis ? also reported mild diarrhea which could possibly secondary to colonic resection ? Check C. difficile, stool culture, ova parasite screen ? Check lactoferrin and stool ? Order low-sodium diet ? Check blood cultures, urine culture, sputum Gram stain culture ? Order paracentesis, check peritoneal fluid labs ? Cover for SBP order Zosyn every 8 hours ? Recheck CMP at 6 PM ? Lactic acid negative at 1.8. ? Bicarb 16, anion gap 22.1 most likely secondary to renal failure ? Patient's urine output is reduced as per . ? Place Hillman catheter for accurate output ? Patient likely requires a bicarb drip. Will discuss with nephrology. ? Nephrology consulted. No acute indication for dialysis at this time. ? Check PT/INR - Transfer to ICU - Patient denies any acute blood loss via stool or urine. Hemoglobin 7.3 today. Recheck CBC in AM. ? He has had a history of FOBT positive in the past ? Check CBC every 12 hours ? Check iron studies, TIBC, ferritin ? Transfuse for hemoglobin less than 7. Type and cross. Secondary to esophageal varices I would have strict threshold to transfuse for less than 7. ? CT abdomen pelvis reviewed shows diffuse abdominal pelvic peritoneal ascites. ? Discussed with nephrology over the phone. Full code DVT prophylaxis: Heparin SQ twice daily PDMP PDMP Reviewed: Not Reviewed Attestations Medical Necessity Statement*: Requires greater than 2 midnight stay for management of acute renal failure Diagnoses Acute renal failure N17.9 RIVERA (nonalcoholic steatohepatitis) K75.81 Transaminitis R74.01 Cirrhosis K74.60 Acute kidney injury N17.9 Malignant neoplasm of prostate C61 Generalized weakness R53.1 Nausea & vomiting R11.2 Dehydration E86.0 Hepatorenal syndrome K76.7 Hypotension I95.9 Leukocytosis D72.829
--- NOTE | 2024-12-11 17:02 | PC.NURSE ---
this nurse contacted Maryse, jewel hole finish opener, spoke with patient @8212 via iPad.
--- OUTSIDE RECORDS SUMMARY | 2024-12-11 17:08 | XMS_ITS | Data Portability ---
Author Organization [place] - [facility] [place], ADMIN Address [address] [place] [id number] Care Team Providers Care Guest Services Assistant Name Role Phone NANCY VIDES Primary Care Provider Assessment Encounter Date Assessment Date Assessment LastModified by Organization Details LastModified Time 08/04/2024 08/04/2024 Impression: 1. Alcoholic cirrhosis -- Per CT scan from [facility]. Copy of CT scan is unavailable at time of dictation. 2. Ascites 3. Altered bowel function with bloody diarrhea 4. Abdominal pain bilateral lower quadrants 5. No previous EGD 6. Previous Colonoscopy April 2023 7. Hemorrhoid surgery April 2024 8. Family history of two brother one with esophageal cancer in younger brother and younger brother had gastric cancer in his 60s 9. No family history of colorectal cancer 10. Other medical issues: Hypertension, hyperlipidemia, Recommendations: 1. Schedule EGD for evaluation of luminal varices due to new diagnosis of cirrhosis 2. Schedule Colonoscopy for further evaluation of altered bowel function with hematochezia. 3. Obtain chronic liver workup 4. Schedule CT scan with contrast of abdomen and pelvis. 5. Follow up in 2 weeks for clinical reassessment. [email or web address] Not available 08/04/2024 12:49:47 09/20/2024 09/20/2024 impression: 1. Adenomatous colon polyps right colon -- Colon polyps were not able to be removed during colonoscopy 08/11/2024 2. Esophageal varices --EGD 08/11/2024 with variceal ligation x 5 --Coreg 3.125 mg PO BID 3. Positive KIYA 1:160 nuclear pattern 4. cirrhosis; Chronic stable --08/04/2024 alpha-1 antitrypsin phenotype PI MM, KIYA positive, AFP 3.6, serum plasmin 25, celiac sprue negative, transferrin 326, hepatitis (A, B, C) nonreactive, ferritin 36, mitochondrial antibody negative, smooth muscle antibody negative, iron 43, iron saturation 10.3, iron binding capacity 416, TSH 2.05, cholesterol 147, triglycerides 243, alk phos 195, AST 76, ALT 88, bilirubin 0.4, PT 10.9, INR 1.0, hemoglobin 9.8, hematocrit 29.1, MCV 92.7, platelets 234, 5. Ascites; chronic stable --Low Sodium diet 2 grams or less per day 6. Altered bowel function with bloody diarrhea --Colonoscopy 08/11/2024 revealed moderate sized internal hemorrhoids. Multiple AVMs indentified in the rectum. Prominent submucosal vessels in the rectum suggestive of rectal varices. Multiple colorectal polyps. A large 3 cm polyp in the mid right colon. Multiple sessile right colon polyp ranging in size from 5mm to 10 mm were identified. Pathology right colon fragments of inflamed tubular adenoma. sigmoid colon polyp tubular adenoma. Transverse colon polyp fragments of tubular adenoma. 7. Abdominal pain bilateral lower quadrants with left upper and lower tenderness on exam; chronic stable -- CT scan 09/06/2024 revealed lobulated contour of the liver suggesting cirrhosis of the liver. Calcification in the gallbladder. 8. GERD; chronic stable --Omeprazole 40 mg PO daily --EGD 08/11/2024 revealed large esophageal varices. Esophageal variceal band ligation x 5. Changes consistent with portal hypertensive gastropathy. Pathology Previous Chart History 9. Hemorrhoid surgery April 2024 10. Family history of two brother one with esophageal cancer in younger brother and younger brother had gastric cancer in his 60s 10. No family history of colorectal cancer 11. Other medical issues: Hypertension, hyperlipidemia, Recommendations: 1. Schedule follow up EGD for reassessment of luminal varices October 2024 2. Referral to general surgery for multiple right colon polyps with larges 3 cm for possible hemicolectomy. 3. Refer to rheumatology for positive KIYA 4. Obtain CBC monthly for hematochezia 5. Continue omeprazole 40 mg PO daily for GERD management 6. Continue coreg 3.125mg PO BID for esophageal varices 7. In 6 months obtain AFP, CBC, CMP, PT/INR February 2025 for HCC screening for cirrhosis 8. In 6 months schedule HCC of the liver February 2025 for cirrhosis 9. Low sodium diet 2 grams or less per day 10. Follow up in 2 weeks for clinical reassessment after having EGD completed. [email or web address] Not available 09/21/2024 09:42:53 11/02/2024 11/02/2024 impression: 1. Adenomatous colon polyps right colon --Referred to general surgery (Waiting on [facility] approval) --Colon polyps were not able to be removed during colonoscopy 08/11/2024 2. Esophageal varices --EGD 10/12/2024 with variceal ligation x 6 --EGD 08/11/2024 with variceal ligation x 5 --Coreg 3.125 mg PO BID 3. Positive KIYA 1:160 nuclear pattern 4. cirrhosis; Chronic stable --08/04/2024 alpha-1 antitrypsin phenotype PI MM, KIYA positive, AFP 3.6, serum plasmin 25, celiac sprue negative, transferrin 326, hepatitis (A, B, C) nonreactive, ferritin 36, mitochondrial antibody negative, smooth muscle antibody negative, iron 43, iron saturation 10.3, iron binding capacity 416, TSH 2.05, cholesterol 147, triglycerides 243, alk phos 195, AST 76, ALT 88, bilirubin 0.4, PT 10.9, INR 1.0, hemoglobin 9.8, hematocrit 29.1, MCV 92.7, platelets 234, 5. Ascites; chronic stable --Low Sodium diet 2 grams or less per day 6. Altered bowel function with bloody diarrhea --Colonoscopy 08/11/2024 revealed moderate sized internal hemorrhoids. Multiple AVMs indentified in the rectum. Prominent submucosal vessels in the rectum suggestive of rectal varices. Multiple colorectal polyps. A large 3 cm polyp in the mid right colon. Multiple sessile right colon polyp ranging in size from 5mm to 10 mm were identified. Pathology right colon fragments of inflamed tubular adenoma. sigmoid colon polyp tubular adenoma. Transverse colon polyp fragments of tubular adenoma. 7. Abdominal pain bilateral lower quadrants with left upper and lower tenderness on exam; chronic stable -- CT scan 09/06/2024 revealed lobulated contour of the liver suggesting cirrhosis of the liver. Calcification in the gallbladder. 8. GERD; chronic stable --Omeprazole 40 mg PO daily --EGD 08/11/2024 revealed large esophageal varices. Esophageal variceal band ligation x 5. Changes consistent with portal hypertensive gastropathy. Pathology Previous Chart History 9. Hemorrhoid surgery April 2024 10. Family history of two brother one with esophageal cancer in younger brother and younger brother had gastric cancer in his 60s 10. No family history of colorectal cancer 11. Other medical issues: Hypertension, hyperlipidemia, Recommendations: 1. Follow up on referral to general surgery for multiple right colon polyps with larges 3 cm for possible hemicolectomy. 2. Consider follow up EGD for luminal varices assessment February 2025 3. 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 In 6 months obtain AFP, CBC, CMP, PT/INR February 2025 for HCC screening for cirrhosis 5. In 6 months schedule HCC of the liver February 2025 for cirrhosis 6. Continue omeprazole 40 mg PO daily for GERD management 7. Continue coreg 3.125mg PO BID for esophageal varices 8. Low sodium diet 2 grams or less per day 9 Follow up in 12 weeks for clinical reassessment Not available 11/02/2024 11:12:51 Plan of Treatment Reminders Order Date Submit Date Provider Last Modified By Organization Details Last Modified Time Details Appointments Establish ed Patient 2024 10:30A M LEIGHANN GOULD NP Not available Not available Not available Lab afp (alpha-fe toprotein ), serum 2024 025 [email or web address] [facility] (Lab), [address] [facility], [place], [address], 11/02/2024 11:23:14 CBC [address] [facility] (Lab), [address], [place], [address], 11/02/2024 11:23:14 PT/INR [address] [facility] [address] [facility] (Lab), [address] [facility], [place], [address], 11/02/2024 11:23:14 BMP, serum or plasma [address] [facility] [address] [facility] (Lab), [address], [place], [address], 11/02/2024 11:23:14 hepatic function panel, serum 2024 025 [email or web address] [facility] (Lab), [address], [place], [address], 11/02/2024 11:23:14 CBC 2024 025 [facility] (Lab)_do Not Use, [address], [place], [address], 10/25/2024 11:05:57 CBC 2024 025 [facility] (Lab)_do Not Use, [address], [place], [address], 11/03/2024 16:35:11 CBC 2024 025 [email or web address] [facility] (Lab)_do Not Use, [address], [place], [address], 11/22/2024 11:40:06 CBC 2024 025 [email or web address] [facility] (Lab)_do Not Use, [address], [place], [address], 11/22/2024 11:40:06 celiac disease comprehen sive panel, serum 2024 025 [facility] (Lab)_do Not Use, [address], [place], [address], 08/26/2024 22:53:46 mitochond rial Ab titer, serum 2024 025 [facility] (Lab)_do Not Use, [address], [place], [address], 08/26/2024 22:53:46 hepatitis C liver status biomarker panel, serum 2024 025 [facility] (Lab)_do Not Use, [address], [place], [address], 08/26/2024 22:53:46 PT/INR 2024 025 [facility] (Lab), [address], [place], [address], 08/04/2024 13:38:50 lipid panel, serum 2024 025 [facility] (Lab)_do Not Use, [address], [place], [address], 08/26/2024 22:53:46 CBC w/ auto diff 2024 025 [facility] (Lab)_do Not Use, [address], [place], [address], 08/04/2024 13:28:25 CMP, serum or plasma 2024 025 [facility] (Lab)_do Not Use, [address], [place], [address], 08/04/2024 14:03:36 hepatitis panel (A+B+C), acute, serum 2024 025 [facility] (Lab), [address], [place], [address], 08/08/2024 12:30:50 cerulopla smin, serum 2024 025 [facility] (Lab), [address], [place], [address], 08/09/2024 13:28:35 TIBC (total iron-bind ing capacity) , serum 2024 [facility] (Lab), [address], [place], [address], 08/26/2024 22:53:46 ferritin, serum or plasma 2024 [facility] (Lab), [address], [place], [address], 08/26/2024 22:53:46 transferr in, serum 2024 [facility] (Lab), [address], [place], [address], 08/09/2024 13:28:32 alpha-1-a ntitrypsi n (aat) phenotype , serum 2024 [facility] (Lab), [address] [place], [address], 08/26/2024 22:53:46 KIYA (antinucl ear antibodie s) screen, ifa, serum 2024 [facility] (Lab)_do Not Use, [address] [place], [address], 08/09/2024 20:06:08 TSH, serum, reflex free T4 2024 [facility] (Lab)_do Not Use, [address] [place], [address], 08/26/2024 22:53:46 smooth muscle Ab titer, serum 2024 [facility] (Lab)_do Not Use, [address], [place], [address], 08/26/2024 22:53:47 afp (alpha-fe toprotein ) tumor marker, serum or plasma 2024 025 [facility] (Lab)_do Not Use, [address], [place], [address], 08/09/2024 16:07:00 Referral rheumatol ogist referral - Please schedule patient. 2024 025 drew Yoder MD, [address] [place], [address], 10/25/2024 11:07:03 general surgeon referral - Please schedule patient. 2024 025 drew Woodward MD, [address], [place], [address], 10/25/2024 11:07:02 Procedures upper endoscopy procedure (EGD) (PROC) - Possible Procedure s: Take biopsies if indicated , possible variceal banding, possible argon plasma coagulati on, possible esophagea l dilation, possible snare polypecto my.Pre-Pr ocedure Orders:1. Start 20 gauge or larger heparin/s torrey lock, may use 0.5 ml of 1% lidocaine or topical anestheti c cream. Start IVF of Lactated Ringers at 80 ML/HR. Post Procedure :1. Vitals every 5 minutes times 3, then every 30 minutes until discharge . 2. Remove IV when toleratin g liquids well. 3. Discharge when meets criteria. 4. Schedule Clinic Follow up in 3 weeksCPT: 23093, 54975, 89913, [address] 2024 025 [facility], [address], [place], [address], 10/25/2024 11:06:10 upper endoscopy procedure (EGD) (PROC) - Possible Procedure s: Take biopsies if indicated , possible variceal banding, possible argon plasma coagulati on, possible esophagea l dilation, possible snare polypecto my.Pre-Pr ocedure Orders:1. Start 20 gauge or larger heparin/s torrey lock, may use 0.5 ml of 1% lidocaine or topical anestheti c cream. Start IVF of Lactated Ringers at 80 ML/HR. Post Procedure :1. Vitals every 5 minutes times 3, then every 30 minutes until discharge . 2. Remove IV when toleratin g liquids well. 3. Discharge when meets criteria. 4. Schedule Clinic Follow up in 3 weeksCPT: 69309, 75771, 24[address], [address] 2024 025 [facility], [address], [place], [address], 08/11/2024 12:14:04 colonosco py procedure (PROC) - IV Lock, InitiateT shane biopsies if indicated , possible hemorroid al banding, possible argon plasma coagulati on, possible hot/cold snare polypecto my, possible dilation of stricture .CPT: 41770, 23472, 40282,453 82 2024 025 [facility], [address], [place], [address], 08/11/2024 12:12:56 Surgeries None recorded. Imaging US, abdomen, limited - please schedule in February 072024 025 [facility] (Radiology), [address], [place], [place], [address], 11/03/2024 15:32:29 CT, abdomen + pelvis, w/ contrast 2024 025 [facility] (Radiology), [address], [place], [address], 09/06/2024 12:51:49 Medication Orders MoviPrep 100 gram-7.5 gram-2.69 1 gram oral powder packet 2024 025 [email or web address] [place] [facility], [address], [place], [place], [address], 09/19/2024 18:29:52 Patient TargetsNo targets recorded. Patient Instructions Encounter Date Encounter Id Patient Instructions Last Modified By Organization Details Last Modified Time 08/04/2024 [id number] diarrhea education [email or web address] Not available 08/04/2024 12:50:45 high fiber foods [email or web address] Not available 08/04/2024 12:50:45 diet - low fodmap [email or web address] Not availabl e 08/04/2024 12:50:45 upper GI endoscopy: before your procedure [email or web address] Not available 08/04/2024 12:50:33 colonoscopy: before your procedure [email or web address] Not available 08/04/2024 12:50:33 Reason for Referral General Surgeon Referral for Adenomatous polyp of colon Please schedule patient. Referring Physician: Leighann Gould, Gastroenterology, Encounter Date: 09/20/2024 [employer] Referral for Anti-nuclear factor detected Please schedule patient. Referring Physician: Leighann Gould, Gastroenterology, Encounter Date: 09/20/2024 Results Created Date Observation Date Name Description Value Unit Range Abnormal Flag Note LastModifiedBy Organization Detail LastModifiedTime 08/04/1908/04/2024 COMPL ETE BLOOD COUNT W/AUT O DIFFE RENTI AL WBC 8.7 K/uL 4.6-10 .9 Not Available [facility] (Lab)_do Not Use [address], [place], [place], [address], 08/04/2024 13:28:25 08/04/19 25 08/04/2024 COMPL ETE BLOOD COUNT W/AUT O DIFFE RENTI AL RBC cnt 3.13 4.45-5 .99 low Not Available [facility] (Lab)_do Not Use [address], [place], [place], [address], 08/04/2024 13:28:25 08/04/19 25 08/04/2024 COMPL ETE BLOOD COUNT W/AUT O DIFFE RENTI AL HGB 9.8 g/dL 13.4-1 7.6 low Not Available [facility] (Lab)_do Not Use [address], [place], [address], 08/04/2024 13:28:25 08/04/19 25 08/04/2024 COMPL ETE BLOOD COUNT W/AUT O DIFFE RENTI AL HCT 29.1 % 40.1-5 3.9 low Not Available [facility] (Lab)_do Not Use [address], [place], [address], 08/04/2024 13:28:25 08/04/19 25 08/04/2024 COMPL ETE BLOOD COUNT W/AUT O DIFFE RENTI AL MCV 92.7 fL 80.1-9 6.9 Not Available [facility] (Lab)_do Not Use [address], [place], [address], 08/04/2024 13:28:25 08/04/19 25 08/04/2024 COMPL ETE BLOOD COUNT W/AUT O DIFFE RENTI AL MCH 31.2 pg 27.1-3 2.9 Not Available [facility] (Lab)_do Not Use [address], [place], [address], 08/04/2024 13:28:25 08/04/19 25 08/04/2024 COMPL ETE BLOOD COUNT W/AUT O DIFFE RENTI AL MCHC 33.6 32.1-3 5.9 Not Available [facility] (Lab)_do Not Use [address], [place], [address], 08/04/2024 13:28:25 08/04/19 25 08/04/2024 COMPL ETE BLOOD COUNT W/AUT O DIFFE RENTI AL RDW 20.1 % 11.6-1 4.4 high Not Available [facility] (Lab)_do Not Use [address], [place], [address], 08/04/2024 13:28:25 08/04/19 25 08/04/2024 COMPL ETE BLOOD COUNT W/AUT O DIFFE RENTI AL plt cnt 234 x10(3 )/mcL 151-44 9 Not Available [facility] (Lab)_do Not Use [address], [place], [address], 08/04/2024 13:28:25 08/04/19 25 08/04/2024 COMPL ETE BLOOD COUNT W/AUT O DIFFE RENTI AL MPV 8.1 fL 7.5-10 .3 Not Available [facility] (Lab)_do Not Use [address], [place], [address], 08/04/2024 13:28:25 08/04/19 25 08/04/2024 COMPL ETE BLOOD COUNT W/AUT O DIFFE RENTI AL NRBC% auto 0 % no reference range Not Available [facility] (Lab)_do Not Use [address], [place], [address], 08/04/2024 13:28:25 08/04/19 25 08/04/2024 COMPL ETE BLOOD COUNT W/AUT O DIFFE RENTI AL NRBC# auto 0 /100_ WBC no reference range Not Available [facility] (Lab)_do Not Use [address], [place], [address], 08/04/2024 13:28:25 08/04/1908/04/2024 .AUTO DIFF neutrophils% auto 77.8 % 38.0-6 9.0 high Not Available [facility] (Lab)_do Not Use [address], [place], [address], 08/04/2024 13:28:28 08/04/19 25 08/04/2024 .AUTO DIFF lymphocytes% auto 9.7 % 22.0-5 0.0 low Not Available [facility] (Lab)_do Not Use [address], [place], [address], 08/04/2024 13:28:28 08/04/19 25 08/04/2024 .AUTO DIFF monocytes% auto 8.7 % 3.0-8. 0 high Not Available [facility] (Lab)_do Not Use [address], [place], [address], 08/04/2024 13:28:28 08/04/19 25 08/04/2024 .AUTO DIFF eosinophils% auto 3.5 % 1.0-2. 0 high Not Available [facility] (Lab)_do Not Use [address], [place], [address], 08/04/2024 13:28:28 08/04/19 25 08/04/2024 .AUTO DIFF basophils% auto 0.3 % 1.0-4. 0 low Not Available [facility] (Lab)_do Not Use [address], [place], [address], 08/04/2024 13:28:28 08/04/19 25 08/04/2024 .AUTO DIFF neutrophils# auto 6.8 3.0-7. 0 Not Available [facility] (Lab)_do Not Use [address], [place], [address], 08/04/2024 13:28:28 08/04/19 25 08/04/2024 .AUTO DIFF lymphocytes# auto 0.8 2.0-4. 0 low Not Available [facility] (Lab)_do Not Use [address], [place], [address], 08/04/2024 13:28:28 08/04/19 25 08/04/2024 .AUTO DIFF monocytes# auto 0.8 1.0-1. 0 low Not Available [facility] (Lab)_do Not Use [address], [place], [address], 08/04/2024 13:28:28 08/04/19 25 08/04/2024 .AUTO DIFF eos# auto 0.3 2.0-2. 0 low Not Available [facility] (Lab)_do Not Use [address], [place], [address], 08/04/2024 13:28:28 08/04/19 25 08/04/2024 .AUTO DIFF basophils# auto 0.0 1.0-1. 0 low Not Available [facility] (Lab)_do Not Use [address], [place], [address], 08/04/2024 13:28:28 08/04/19 25 08/04/2024 PROTH ROMBI N TIME W/ INR PT 10.9 secon d(s) 9.6-12 .4 Not Available [facility] (Lab)_do Not Use [address], [place], [address], 08/04/2024 13:38:50 08/04/19 25 08/04/2024 PROTH ROMBI N TIME W/ INR INR 1.0 no reference range INR Inter preti ve Data Throm botic Disor jett Recom all d INR Proph ylaxi s/malik atmen t of: Venou s Throm bosis 2.0-3 .0 Pulmo nary Embol ism 2.0-3 .0 Preve ntion of Syste dionte Embol ism from: Tissu e Heart Valve s 2.0-3 .0 Myoca rdial Infar ction 2.0-3 .0 (prev ent syste dionte embol ism) Valvu lar Heart Disea se 2.0-3 .0 Atria l Fibri latio n 2.0-3 .0 Mecha nical Prost hetic Valve s 2.5.3 .5 Not Available [facility] (Lab)_do Not Use [address], [place], [address], 08/04/2024 13:38:50 08/04/19 25 08/04/2024 COMPR EHENS AMBERLY METAB OLIC PROFI LE eGFR 61 mL/mi n/1.7 3_m2 >=90 low CKD is defin ed by the prese nce of glome rular filtr ation rate (GFR) <60 mL for >3 month s and/o r evide nce of kidne y damag e (eg, struc tural abnor malit ies, histo logic abnor malit ies, album inuri a, urina ry sedim ent abnor malit ies, renal tubul ar disor ders, and/o r histo ry of kidne y trans plant ation ) for >3mon ths. This table provi marquez inter preta tion of speci fic eGFR value s. Creat inine measu remen ts, and there fore eGFR calcu latio ns, are affec kameron by very high or very low muscl e mass, muscl e injur y, a diet very high in meat, hepat ic cirrh osis, certa in drugs , etc. Stage s of CKD: Stage Descr iptio n GFR mL/mi n 1 Kidne y damag e with sonal l or incre ased GFR 90 2 Kidne y damag e with mild decre ase in GFR 60 to 89 3 Moder ate decre ase in GFR 30 to 59 4 Sever e decre ase in GFR 15 to 29 5 Kidne y failu re <15 (or dialy sis) Note: GFR Sonal l range >60, equat ion not valid ated for ages <18 and >70 and pregn ant women . Not Available [facility] (Lab)_do Not Use [address], [place], [place], [address], 08/04/2024 14:03:36 08/04/19 25 08/04/2024 COMPR EHENS AMBERLY METAB OLIC PROFI LE glucose 124 mg/dL 71-109 high Not Available [facility] (Lab)_do Not Use [address], [place], [address], 08/04/2024 14:03:36 08/04/19 25 08/04/2024 COMPR EHENS AMBERLY METAB OLIC PROFI LE BUN 19 mg/dL 8-17 high Not Available [facility] (Lab)_do Not Use [address], [place], [address], 08/04/2024 14:03:36 08/04/19 25 08/04/2024 COMPR EHENS AMBERLY METAB OLIC PROFI LE creatinine 1.2 mg/dL 0.6-1. 3 Not Available [facility] (Lab)_do Not Use [address], [place], [address], 08/04/2024 14:03:36 08/04/19 25 08/04/2024 COMPR EHENS AMBERLY METAB OLIC PROFI LE BUN/crea ratio 15.83 6.01-1 9.99 Not Available [facility] (Lab)_do Not Use [address], [place], [address], 08/04/2024 14:03:36 08/04/1908/04/2024 COMPR EHENS AMBERLY METAB OLIC PROFI LE sodium 143 mmol/ L 136-14 9 Not Available [facility] (Lab)_do Not Use [address], [place], [address], 08/04/2024 14:03:36 08/04/1908/04/2024 COMPR EHENS AMBERLY METAB OLIC PROFI LE potassium 3.6 mEq/L 3.6-5. 2 Not Available [facility] (Lab)_do Not Use [address], [place], [address], 08/04/2024 14:03:36 08/04/19 25 08/04/2024 COMPR EHENS AMBERLY METAB OLIC PROFI LE chloride 104 mmol/ L 96-109 Not Available [facility] (Lab)_do Not Use [address], [place], [address], 08/04/2024 14:03:36 08/04/19 25 08/04/2024 COMPR EHENS AMBERLY METAB OLIC PROFI LE carbon dioxide 25 mmol/ L 22-33 Not Available [facility] (Lab)_do Not Use [address], [place], [address], 08/04/2024 14:03:36 08/04/19 25 08/04/2024 COMPR EHENS AMBERLY METAB OLIC PROFI LE calcium 8.7 mg/dL 8.6-10 .0 Not Available [facility] (Lab)_do Not Use [address], [place], [address], 08/04/2024 14:03:36 08/04/19 25 08/04/2024 COMPR EHENS AMBERLY METAB OLIC PROFI LE Ca corrected 9.2 mg/dL 8.6-10 .0 Not Available [facility] (Lab)_do Not Use [address], [place], [address], 08/04/2024 14:03:36 08/04/1908/04/2024 COMPR EHENS AMBERLY METAB OLIC PROFI LE prot total 7.7 g/dL 6.5-8. 2 Not Available [facility] (Lab)_do Not Use [address], [place], [address], 08/04/2024 14:03:36 08/04/1908/04/2024 COMPR EHENS AMBERLY METAB OLIC PROFI LE albumin 3.4 g/dL 3.6-4. 9 low Not Available [facility] (Lab)_do Not Use [address], [place], [address], 08/04/2024 14:03:36 08/04/19 25 08/04/2024 COMPR EHENS AMBERLY METAB OLIC PROFI LE globulin 4 no reference range Not Available [facility] (Lab)_do Not Use [address], [place] [place], [address], 08/04/2024 14:03:36 08/04/19 25 08/04/2024 COMPR EHENS AMBERLY METAB OLIC PROFI LE albumin/glob ulin ratio 0.79 1.01-2 .49 low Not Available [facility] (Lab)_do Not Use [address], [place], [address], 08/04/2024 14:03:36 08/04/19 25 08/04/2024 COMPR EHENS AMBERLY METAB OLIC PROFI LE anion gap 14.0 mmol/ L 3.1-10 .9 high Not Available [facility] (Lab)_do Not Use [address], [place], [address], 08/04/2024 14:03:36 08/04/19 25 08/04/2024 COMPR EHENS AMBERLY METAB OLIC PROFI LE alkaline phosphatase 195 U/L 51-135 high Not Available [facility][1] (Lab)_do Not Use [address], [place], [address], 08/04/2024 14:03:36 08/04/19 25 08/04/2024 COMPR EHENS AMBERLY METAB OLIC PROFI LE AST 76 U/L 16-36 high Not Available [facility] (Lab)_do Not Use [address], [place], [address], 08/04/2024 14:03:36 08/04/19 25 08/04/2024 COMPR EHENS AMBERLY METAB OLIC PROFI LE ALT 88 U/L 31-64 high Not Available [facility] (Lab)_do Not Use [address], [place], [address], 08/04/2024 14:03:36 08/04/19 25 08/04/2024 COMPR EHENS AMBERLY METAB OLIC PROFI LE bili total 0.4 mg/dL 0.1-0. 9 Not Available [facility] (Lab)_do Not Use [address], [place], [address], 08/04/2024 14:03:36 08/04/19 25 08/04/2024 COMPR EHENS AMBERLY METAB OLIC PROFI LE osmol calc 289 mOsm/ kg 281-30 0 Not Available [facility] (Lab)_do Not Use [address], [place], [address], 08/04/2024 14:03:36 08/04/19 25 08/04/2024 LIPID PANEL cholesterol 147 mg/dL 166-26 9 low The [facility] n (AHA) recom mends keepi ng total rocky stero l level s below 200 mg/dL . Level s from 200-2 39 mg/dL are consi dered borde rline high, while level s above 240 mg/dL are consi dered high. The expec kameron range based on appar ently healt hy popul ation s is highe r than the recom all d range . Not Available [facility] (Lab)_do Not Use [address], [place], [address], 08/04/2024 14:03:38 08/04/1908/04/2024 LIPID PANEL triglyceride s 243 mg/dL 51-199 high Not Available [facility] (Lab)_do Not Use [address], [place], [address], 08/04/2024 14:03:38 08/04/19 08/04/2024 LIPID PANEL lipoprotein HDL 46 mg/dL 36-59 Not Available [facility] (Lab)_do Not Use [address], [place], [address], 08/04/2024 14:03:38 08/04/1908/04/2024 LIPID PANEL LDL calculation 52 mg/dL no reference range Not Available [facility] (Lab)_do Not Use [address], [place], [address], 08/04/2024 14:03:38 08/04/19 25 08/04/2024 LIPID PANEL chol/HDL ratio 3.20 0.01-4 .97 Not Available [facility] (Lab)_do Not Use [address], [place], [address], 08/04/2024 14:03:38 08/04/1908/04/2024 THYRO ID STIMU LATIN G HORMO NE TSH 2.05 uIU/m L 0.35-3 .99 Not Available [facility] (Lab)_do Not Use [address], [place], [address], 08/04/2024 14:03:39 08/04/1908/04/2024 FREE THYRO XINE T4 free 1.14 NG/dL 0.79-2 .39 Not Available [facility] (Lab)_do Not Use [address], [place], [address], 08/04/2024 14:03:40 08/04/1908/04/2024 IRON ERIKA NG CAPAC ITY PNL DM iron 43 ug/dL 36-149 Iron value s may be false ly eleva kameron in serum sampl es from [facility] nts treat ed with antic oagul ants (e.g. ,hemo dialy sis, hepar in psychiatric hospital) Not Available [facility] (Lab)_do Not Use [address], [place], [address], 08/04/2024 14:03:41 08/04/19 25 08/04/2024 IRON ERIKA NG CAPAC ITY PNL DM iron sat DM 10.3 % 20.0-5 0.0 low Not Available [facility] (Lab)_do Not Use [address] [facility], [place], [address], 08/04/2024 14:03:41 08/04/19 25 08/04/2024 IRON ERIKA NG CAPAC ITY PNL DM ibc total DM 416 ug/dL 251-44 9 Not Available [facility] (Lab)_do Not Use [address] [facility], [place], [address], 08/04/2024 14:03:41 08/04/19 25 08/07/2024 MITOC HONDR IA ANTIB JEANNE W/REF RENARD TITER - S mitoabscrcq NEGATI VE negati ve no reference range Lab test perfo rmed by: Lab Mnemo rudy: AMD [facility] [address] [place], [place] Tara Neville MD PhD Not Available [facility] (Lab)_do Not Use [address] [facility], [place], [address], 08/07/2024 11:59:13 08/04/19 25 08/07/2024 ACTIN ANTIB JEANNE IGG - SEND OUT TO actiniggcq <20 unit( s) <20 no reference range Refer ence Range : <20 U: Negat amberly >or=2 0 U: Posit amberly Antib odies recog nizin g actin are the main compo nent of mitch h muscl e antib odies assoc iated with auto- immun e liver disea se. Actin antib odies are found in appro ximat claudine 75% of patie nts with autoi mmune hepat itis (AIH) type 1, appro ximat claudine 65% of patie nts with autoi mmune chola ngiti s, appro ximat claudine 30% of patie nts with prima ry bilia ry cirrh osis and appro ximat claudine 2% of healt hy contr ols. High value s are close ly corre lated with AIH type 1. Lab test perfo rmed by: Lab Mnemo rudy: AMD [facility] [address] [employer] [place], [place] Tara Neville MD PhD Not Available [facility] (Lab)_do Not Use [address], [place], [address], 08/07/2024 12:29:35 08/04/19 25 08/08/2024 MADELINE TIN CQ ferritin cq. 36 NG/mL 24-380 no reference range Lab test perfo rmed by: Lab Mnemo rudy: AMD [facility] [address] [employer] [place], [place] Tara Neville MD PhD Not Available [facility] (Lab)_do Not Use [address], [place], [address], 08/08/2024 06:40:52 08/04/19 25 08/08/2024 HEPAT ITIS PANEL ACUTE W/REF RENARD CONFI RMAT hbsagcq NONREA CTIVE nonrea ctive no reference range Confi rmati on Not requi red accor ding to the curre nt packa ge inser t. Not Available [facility] (Lab)_do Not Use [address], [place], [address], 08/08/2024 12:30:50 08/04/19 25 08/08/2024 HEPAT ITIS PANEL ACUTE W/REF RENARD CONFI RMAT hbcoreabigmc q NONREA CTIVE nonrea ctive no reference range Not Available [facility] (Lab)_do Not Use [address], [place], [address], 08/08/2024 12:30:50 08/04/19 25 08/08/2024 HEPAT ITIS PANEL ACUTE W/REF RENARD CONFI RMAT haigmcq NONREA CTIVE no reference range Refer ence range : Nonre activ e For addit ional infor anuja yoo, kylie e refer to https ://ed ati on.qu xenia ramirez Rivono. com/f aq/FA Q202 (This link is being provi ded for infor matio nal/ educa lázaro l purpo ses only. ) Not Available [facility] (Lab)_do Not Use [address], [place], [address], 08/08/2024 12:30:50 08/04/19 25 08/08/2024 HEPAT ITIS PANEL ACUTE W/REF RENARD CONFI RMAT hcabcq NONREA CTIVE no reference range HCV antib jeanne was non-r eacti ve. There is no labor atory evide nce of HCV infec tion. In most cases , no furth er actio n is requi red. Howev er, if recen t HCV expos ure is suspe cted, a test for HCV RNA (test code 12235 ) is sugge sted. REFER ENCE RANGE : NONRE ACTIV E For addit ional infor anuja yoo plelesli e refer to http: //[facility]ie catrobby n.que stdia gnost ics.c om/fa q/FAQ 22v1 (This link is being provi ded for infor matio nal/ educa lázaro l purpo ses only. ) Lab test perfo rmed by: Lab Mnemo rudy: AMD [facility] [address] [facility] [employer] [place], [place] Tara Neville MD PhD Not Available [facility] (Lab)_do Not Use [address], [place], [address], 08/08/2024 12:30:50 08/04/19 25 08/09/2024 TRANS MADELINE N - SEND OUT TO transferrinc q 326 mg/dL 188-34 1 no reference range Lab test perfo rmed by: Lab Mnemo rudy: AMD [facility] [address] [employer] [facility] [place] Tara Neville MD PhD Not Available [facility] (Lab)_do Not Use [address] [facility], [place], [address], 08/09/2024 13:28:32 08/04/19 25 08/09/2024 PERLA C DISEA SE PANEL - SEND OUT TO interpretati on 1 cq SEE BELOW no reference range No serol ogica l evide nce of perla c disea se. tTG IgA may sonal lize in indiv idual s with perla c disea se who maint ain a glute n-rhonda e diet. Consi jett HLA DQ2 and DQ8 testi ng to rule out perla c disea se. Perla c disea se is extre carolann rare in the absen ce of DQ2 or DQ8. Not Available [facility] (Lab)_do Not Use [address] [facility], [place], [address], 08/09/2024 13:28:34 08/04/19 25 08/09/2024 PERLA C DISEA SE PANEL - SEND OUT TO ttgigacq <1.0 unit/ mL <15.0 no reference range Value Inter preta tion <15.0 Antib jeanne not detec kameron > or = 15.0 Antib jeanne detec kameron Not Available [facility] (Lab)_do Not Use [address] [facility], [place], [address], 08/09/2024 13:28:34 08/04/19 25 08/09/2024 PERLA C DISEA SE PANEL - SEND OUT TO igacq 273 mg/dL 70-320 no reference range Lab test perfo rmed by: Lab Mnemo rudy: AMD [facility] [address] [employer] [facility] [employer] [place] Tara Neville MD PhD Not Available [facility] (Lab)_do Not Use [address], [place], [address], 08/09/2024 13:28:34 08/04/19 25 08/09/2024 CERUL OPLAS MIN - SEND OUT TO ceruloplasmi ncq 25 mg/dL 14-30 no reference range Lab test perfo rmed by: Lab Mnemo rudy: AMD [facility] [address] [employer] [place], [place] Tara Neville MD PhD Not Available [facility] (Lab)_do Not Use [address], [place], [address], 08/09/2024 13:28:35 08/04/19 25 08/09/2024 ALPHA FETOP ROTEI N TUMOR MARKE R - SEND OU alphafetopro tcq 3.6 NG/mL <6.1 no reference range This test was perfo rmed using the [employer] chemi lumin escen t metho d. Value s obtai leni from diffe rent assay metho ds canno t be used inter [facility] . AFP level s, regar dless of value , shoul d not be inter prete d as absol mi'kmaq evide nce of the prese nce or absen ce of disea se. Test perfo rmed by [facility] [address] [place] [address] Phone : [phone] Medic al Direc tor: Deyanira carrillo MD,PH D,BONNIE Test Repor kameron by [facility], [facility] Diagn ostic s [facility], [address] [employer] , [place], [place] Tara Neville M.D., Ph.D. , Direc tor of Labor atori es [phone], CLIA [id number] Lab test perfo rmed by: Lab Mnemo rudy: AMD [facility] [address] [employer] [facility] [employer] [place] Tara Neville MD PhD Not Available [facility] (Lab)_do Not Use [address], [place], [address], 08/09/2024 16:07:00 08/04/19 25 08/09/2024 ANTI NUCLE AR ANTIB ODIES IFA SCREE N W/REF anascrifacq POSITI VE negati ve abnormal KIYA IFA is a first line scree n for detec ting the prese nce of up to appro ximat claudine 150 autoa ntibo dies in vario us autoi mmune disea ses. A posit amberly KIYA IFA resul t is sugge stive of autoi mmune disea se and refle xes to titer and ruma rn. Furth er labor atory testi ng may be consi dered if clini sandeep indic ated. For addit ional infor kylie link e refer to http: //[facility] starr yoo.Que stDia gnost ics.c om/fa q/FAQ 177 (This link is being provi ded for infor anuja ibanez/ educa lázaro barnhart purpo ses only. ) Lab test perfo rmed by: Lab Mnemo rudy: AMD [facility] [address] [employer] [facility] [place] Tara Neville MD PhD Not Available [facility] (Lab)_do Not Use [address], [place], [address], 08/09/2024 20:06:08 08/04/19 25 08/09/2024 .KIYA, TITER AND PATTE RNCQ anatitercq 1:160 negati ve abnormal Refer ence Range : <1:40 Negat amberly 1:40- 1:80 Low Antib jeanne Level >1:80 [place] kameron Antib jeanne Level Not Available [facility] (Lab)_do Not Use [address], [place], [address], 08/09/2024 20:27:14 08/04/19 25 08/09/2024 .KIYA, TITER AND PATTE RNCQ anapatterncq SEE BELOW no reference range Nucle ar, Homog magalyeou s Homog lorettaou s patte rn is assoc iated with syste dionte lupus eryth emato luis armando (SLE) , drug- induc ed lupus and girma ile idiop athic arthr itis. AC-1: Homoynes mckenzieebarbara s Inter natio nal Conse nsus on KIYA Patte rns https ://do i.org /10.1 515/c cl-2 018-0 052 Not Available [facility] (Lab)_do Not Use [address], [place], [address], 08/09/2024 20:27:14 08/04/19 25 08/09/2024 .KIYA, TITER AND PATTE RNCQ [id number] NO RESULT no reference range Not Available [facility] (Lab)_do Not Use [address], [place], [address], 08/09/2024 20:27:14 08/04/19 25 08/09/2024 .KIYA, TITER AND PATTE RNCQ [id number] q NO RESULT no reference range Not Available [facility] (Lab)_do Not Use [address], [place], [address], 08/09/2024 20:27:14 08/04/19 25 08/09/2024 .KIYA, TITER AND PATTE RNCQ [id number] NO RESULT no reference range Lab test perfo rmed by: Lab Mnemo rudy: AMD [facility] [address] [place], [place] Tara Neville MD PhD Not Available [facility] (Lab)_do Not Use [address], [place], [address], 08/09/2024 20:27:14 08/04/19 25 08/09/2024 .KIYA, TITER AND PATTE RNCQ [id number] q NO RESULT no reference range Not Available [facility] (Lab)_do Not Use [address], [place], [address], 08/09/2024 20:27:14 08/04/19 25 08/10/2024 ALPHA 1 ANTIT RYPSI N PHENO TYPE- SEND OUT [id number] ycq SEE BELOW no reference range THIS PATIE NT'S ALPHA -1-AN TITRY PSIN PHENO TYPE IS PI*MM . 90% of sonal l indiv idual s have the MM pheno type, with sonal l quant itati ve AAT level s. Many pheno typic patte rns have been descr ibed, inclu ding defic iency state s with F, S, Z, or other allel es. As a gener al estim ation , javier red to M allel e of 100% of sonal l A-1-A ntitr ypsin prote in, the S allel e produ jessica appro ximat claudine 60% and the Z allel e 20%. For examp le, an MS pheno type would have about 80% of sonal l A-1-A ntitr ypsin prote in level , a 50% contr ibuti on from the M allel e and 30% from the S allel e. A ZZ pheno type would have about 20% of sonal l level s, a 10% contr ibuti on from each Z gene. The F allel e has sonal l A-1-A ntitr ypsin level s, but the kinet ics of elast ase inhib ition is not as effic ient as an M allel e produ ct; F allel es shoul d be consi dered funct ional ly mildl y defic ient. Other varia nts are ident ifiab le by pheno typic alexander sis. These inclu de CM, DP, EM, GM, IS, LM, M1M2, M3M3, MP, MT, XX, MY, and M1N. I, P, T and null allel es are consi dered delet laquita s. C, D, E, G, L, M1, M2, M3, X and Y allel es are gener ally consi dered sonal l varia nts. The MZ-Pr att pheno type is a sonal l varia nt; care shoul d be taken to avoid confu whitney with the defic ient MZ pheno type. Test perfo rmed by [facility] [address] [place] [address] Phone : [phone] Medic al Dire tor: Deyanira carrillo MD,PH D,BONNIE Test Repor kameron by [employer] [facility] leyda, [employer] Diagn ostic s [facility], [address] [employer] [facility] [place], [place] Tara Neville M.D., Ph.D. , [facility] atori es , CLIA [id number] Lab test perfo rmed by: Lab Mnemo rudy: AMD [facility] [address] [employer] [facility] [place] Tara Neville MD PhD Not Available [facility] (Lab)_do Not Use [address], [place], [address], 08/10/2024 02:58:27 08/04/1908/13/2024 LIVER FIBRO SIS PANEL CQ fibrosis score cq 0.49 no reference range Not Available [facility] (Lab)_do Not Use [address], [place], [address], 08/13/2024 02:24:02 08/04/19 25 08/13/2024 LIVER FIBRO SIS PANEL CQ fibrosis stage cq F2 no reference range Not Available [facility] (Lab)_do Not Use [address], [place], [address], 08/13/2024 02:24:02 08/04/19 25 08/13/2024 LIVER FIBRO SIS PANEL CQ fibrosis interpretati on cq SEE BELOW no reference range moder ate fibro sis Fibro Test Score (f) Metav ir Score f>=0 and f<=0. 21 : F0 (no fibro sis) f>0.2 1 and f<=0. 27 : F0-F1 (no fibro sis) f>0.2 7 and f<=0. 31 : F1 (mini mal fibro sis) f>0.3 1 and f<=0. 48 : F1-F2 (mini mal fibro sis) f>0.4 8 and f<=0. 58 : F2 (mode rate fibro sis) f>0.5 8 and f<=0. 72 : F3 (adva nced fibro sis) f>0.7 2 and f<=0. 74 : F3-F4 (adva nced fibro sis) f>0.7 4 and f<=1. 00 : F4 (manda re fibro sis) Not Available [facility] (Lab)_do Not Use [address], [place], [address], 08/13/2024 02:24:02 08/04/19 25 08/13/2024 LIVER FIBRO SIS PANEL CQ necroinflamm at act score cq 0.44 no reference range Not Available [facility] (Lab)_do Not Use [address], [place], [address], 08/13/2024 02:24:02 08/04/19 25 08/13/2024 LIVER FIBRO SIS PANEL CQ necroinflamm at act grade cq A1-A2 no reference range Not Available [facility] (Lab)_do Not Use [address], [place], [address], 08/13/2024 02:24:02 08/04/19 25 08/13/2024 LIVER FIBRO SIS PANEL CQ necroinflamm at interp cq SEE BELOW no reference range minim al activ ity ActiT est Score (a) Metav ir Score a>=0 and a<=0. 17 : A0 (no activ ity) a>0.1 7 and a<=0. 29 : A0-A1 (no activ ity) a>0.2 9 and a<=0. 36 : A1 (mini mal activ ity) a>0.3 6 and a<=0. 52 : A1-A2 (mini mal activ ity) a>0.5 2 and a<=0. 60 : A2 (sign ifica nt activ ity) a>0.6 0 and a<=0. 62 : A2-A3 (sign ifica nt activ ity) a>0.6 2 and a<=1. 00 : A3 (manda re activ ity) Not Available [facility] (Lab)_do Not Use [address], [place], [address], 08/13/2024 02:24:02 08/04/19 25 08/13/2024 LIVER FIBRO SIS PANEL CQ yzwlp-5-doyh oglobulin cq 154 mg/dL 106-27 9 no reference range Not Available [facility] (Lab)_do Not Use [address], [place], [address], 08/13/2024 02:24:02 08/04/19 25 08/13/2024 LIVER FIBRO SIS PANEL CQ haptoglobin cq 133 mg/dL 43-212 no reference range Not Available [facility] (Lab)_do Not Use [address], [place], [address], 08/13/2024 02:24:02 08/04/19 25 08/13/2024 LIVER FIBRO SIS PANEL CQ apolipoprote in A1 cq 147 mg/dL 94-176 no reference range Not Available [facility] (Lab)_do Not Use [address], [place], [address], 08/13/2024 02:24:02 08/04/19 25 08/13/2024 LIVER FIBRO SIS PANEL CQ total bilirubin cq 0.4 mg/dL 0.2-1. 2 no reference range Not Available [facility] (Lab)_do Not Use [address], [place], [address], 08/13/2024 02:24:02 08/04/19 25 08/13/2024 LIVER FIBRO SIS PANEL CQ ggtcq 477 unit/ L 3-70 high Not Available [facility] (Lab)_do Not Use [address], [place], [address], 08/13/2024 02:24:02 08/04/19 25 08/13/2024 LIVER FIBRO SIS PANEL CQ ALT cq 62 unit/ L 9-46 high Not Available [facility] (Lab)_do Not Use [address], [place], [address], 08/13/2024 02:24:02 08/04/19 25 08/13/2024 LIVER FIBRO SIS PANEL CQ reference id [id number] no reference range Not Available [facility] (Lab)_do Not Use [address], [place], [address], 08/13/2024 02:24:02 08/04/19 25 08/13/2024 LIVER FIBRO SIS PANEL CQ footnote id cq SEE BELOW no reference range The relia bilit y of resul ts is depen dent on compl iance with the prean alyti benoit and alexander tical condi tions recom all d by Bio[employer] edict amberly. The tests have to be defer red for: acute hemol ysis, acute hepat itis, acute infla mmati on, extra hepat ic rocky stasi s. The advic e of a speci alist shoul d be sough t for inter preta tion in chron ic hemol ysis and Gilbe rt's syndr ome. The test inter preta tion is not valid ated in liver trans plant patie nts. [place] kameron extre me value s of one of the compo nents jonathon d lead to cauti on in inter preti ng the resul ts. In case of disco rdanc e betwe en a biops y resul t and a test, it is recom all d to seek the advic e of a speci alist . The cause s of these disco rdanc es could be due to a flaw of the test or to a flaw in the biops y: i.e. a liver biops y has a 33% varia bilit y rate for one fibro sis stage . Fibro Test is inter preta ble for chron ic hepat itis B and C, alcoh olic and non alcoh olic steat osis. ActiT est is inter preta ble for chron ic hepat itis B and C. The perfo rmanc e zeny cteri stics have been deter mined by [facility], [facility] . It has not been clear ed or appro alejo by the U.S. Food and Drug Admin istra tion. Perfo rmanc e zeny cteri stics refer to the alexander tical perfo rmanc e of the test. [facility] , [facility], the assoc iated logo, [facility] and all assoc iated [facility] grayson are the brooklynn tered trade grayson of [facility]. All third democrat grayson - (R) and (TM) - are the prope rty of their respe ctive otr owner operator s. (C) 1999- 2013 [facility] Inc[facility] porat ed. All right s reser alejo. Test perfo rmed by [facility] [address] [place] [address] Phone : [phone] Medic al Direc tor: Deyanira carrillo MD,PH D,BONNIE Test Repor kameron by [facility], [facility], [address] [employer] , [employer], [employer] Tara Neville M.D., Ph.D. , Direc tor of Labor atori es , CLIA [id number] Lab test perfo rmed by: Lab Mnemo rudy: AMD [facility] [address] [employer], [place] Tara Neville MD PhD Not Available [facility] (Lab)_do Not Use [address], [place], [address], 08/13/2024 02:24:02 08/11/19 25 08/11/2024 GLUCO SE LEVEL POC BEDSI DE glu POC bdside 137 mg/dL 65-90 high Opera tor ID: [id number] Not Available [facility] (Lab)_do Not Use [address], [place], [address], 08/11/2024 08:19:47 10/13/19 25 10/12/2024 GLUCO SE LEVEL POC BEDSI DE glu POC bdside 144 mg/dL 65-90 high Opera tor ID: [id number] Not Available [facility] (Lab)_do Not Use [facility], [place], [address], 10/12/2024 10:50:08 09/03/19 25 08/11/2024 XR, kidne y + urete r + bladd er [facility] [place] [facility] [place] [address] [facility] [place] [address]- Patien t: JOSE TERRAZAS MRN:[id number] : 1949 Sex:Ma le Locati on: [facility]; 1070; 17 Orderi ng Physic katy: ROBSON NIX MD Diagno stic Radiol ogy Access ion Exam Date/T socorro [id number] 08/11/19 09:44 ELECTRICAL SYSTEMS ENGINEER Reason for Exam record placem ent of right colon clip;O ther (pleas e specif y) Report EXAM: SINGLE -VIEW ABDOME N Date: 2024 Compar jules: None Histor y: Record placem ent of right colon clip. Findin gs: The diaphr agms are not includ ed on the image. Degene rative change s are seen in the lumbar spine. Metall ic clip overli es the lower ascend ing colon. Gas is scatte red throug hout nondis tended loops of small bowel and colon. IMPRES WHITNEY: Nonobs tructi ve bowel gas patter n. A clip is observ ed over the lower ascend ing colon. Final Signed by: MANNY OCASIO MD Signed (Elect remy Signat ure): 2024 07:41 am ELECTRICAL SYSTEMS ENGINEER [email or web address] [facility] (Radiology) [address] [place] [address] Rd, [place], [address], 09/29/2024 10:06:17 09/07/19 25 09/06/2024 CT, abdom en + pelvi s, w/ contr ast [place] [facility] [address] [place] [address]- Patien t: JOSE TERRAZAS [id number] : 1949 Sex:Ma le Locati on: [facility] Orderi ng Physic katy: LEIGHANN GOULD [employer] TECHNICIAN Comput ed Tomogr aphy Access ion Exam Date/T socorro [id number] [phone] 09/07/19 11:08 ELECTRICAL SYSTEMS ENGINEER Reason for Exam Altere d bowel functi on Report EXAM: CT ABDOME N AND PELVIS WITH CONTRA ST HISTOR Y: Altere d bowel functi on TECHNI QUE: CT acquis ition of the abdome n and pelvis from the lower thorax throug h the pelvis follow ing IV contra st admini strati on. 2-D blanco l and sagitt al reform atted images were obtain ed from the axial source images . IV Contra st: 50 mL of Omnipa que 350 admini stered . Oral Contra st: None. CT Dose Reduct ion Techni ques Perfor med: Yes. COMPAR JULES: None. FINDIN GS: Lower Thorax : Within normal limits . Liver: No mass. There is a lobula kameron contou r which sugges ts underl lemuel cirrho sis. Biliar y: The gallbl adder shows areas of calcif icatio n within the wall of the gallbl adder and bile ducts are normal . Pancre as: No mass or eviden ce of pancre atitis . No duct dilati on. Spleen : No mass. No spleno megaly . Adrena ls: No mass. Kidney s/Uret ers: Bilate ral cysts are noted No calcul us or hydron ephros is. GI Tract: No bowel dilati on. No bowel wall thicke luisa. Perito nancy Cavity : Mild ascite s. No free air. Retrop eriton eum: No fluid collec tion. Lymph Nodes: No lympha denopa thy. Vascul ature: No aortic athero sclero tic calcif icatio ns. No aortic or iliac aneury sm. Celiac , superi or mesent micki, and inferi or mesent micki arteri es are grossl y patent . Limite d assess ment of the portal and hepati c veins and IVC is unrema rkable within limita tions of the phase of IV contra st. Pelvis : No mass. Bladde r is normal . Bones/ Soft Tissue s: No fractu re or lytic lesion . Visual ized abdomi nal wall soft tissue s are unrema rkable . IMPRES WHITNEY: 1. No acute findin gs identi fied within the small bowel or large intest ine. 2. Calcif icatio n of the gallbl adder wall 3. Calcif icatio n of the gallbl adder wall cirrho tic appear ance of the liver Comput ed Tomogr aphy Report All CT scans are perfor med using dose optimi zation techni ques as approp riate to the perfor med exam and includ e at least one of the follow ing: Automa kameron exposu re contro l, adjust ment of the mA and/or kV accord ing to size, and the use of iterat amberly recons tructi on techni que. Final Signed by: KATHERIN KIM MD Signed (Elect remy Signat ure): 2024 11:51 am ELECTRICAL SYSTEMS ENGINEER drew [facility] (Radiology) [address], [place], [address], 09/22/2024 17:44:16 Result Notes None recorded. Problems Name Problem SNOMED Code Status Onset Date Resolution Date Notes Provider Name and Address Organization Details Recorded Time Ascites 114604600 Active 2024 LEIGHANN MOLINATT, NATURAL GAS PLANT TECHNICIAN [address], [place], [address], [place] [facility] [place] 5 12:49:47 Altered bowel function 17092627 Active 2024 LEIGHANN GOULD, NATURAL GAS PLANT TECHNICIAN [address], [place], [address], [place] [facility] [place] 5 12:49:47 Chronic diarrhea 026161682 Active 2024 LEIGHANN MOLINATT, NATURAL GAS PLANT TECHNICIAN [address], [place], [address], [place] [facility] [place] 5 12:49:48 Hematochezia 174602042 Active 2024 LEGIHANN MOLINATT, NATURAL GAS PLANT TECHNICIAN [address], [place], [address], [place] [facility] [place] 5 12:49:50 Cirrhosis of liver 78433442 Active 2024 LEIGHANN GOULD, NATURAL GAS PLANT TECHNICIAN [address], [place], [address], [place] [facility] [place] 5 12:50:08 Problem Notes None recorded. Procedures Surgical History Date Name Laterality Status Provider Name and Address Organization Details Recorded Time 2024 Colonoscopy completed Lashon Busby LPN [address] 5 10:51:11 2024 esophagogastroduodenoscopy completed Danisha Busby LPN [address] 5 10:51:24 2022 colonoscopy completed Jasmina Cohen LPN [address] 5 10:57:44 hemorrhoidectomy completed Jasmina Cohen LPN [address] 5 10:58:09 Imaging Results None recorded. Procedure Notes None recorded. Medical Equipment None Reported. Allergies No known drug allergies Medications Name Sig Start Date Stop Date Status Note LastModified by Organization Details LastModified Time carvedilol 25 mg tablet TAKE 1 TABLET BY MOUTH TWICE DAILY active Not Available Not Available No t Available Coreg 3.125 mg tablet Take 1 tablet twice a day by oral route. active Not Available Not Available No t Available pravastatin 40 mg tablet Take 1 tablet every day by oral route at bedtime. active Not Available Not Available No t Available atenolol 100 mg tablet Take 1 tablet every day by oral route. 09/20 completed Not Available Not Available Not Available hydralazine 25 mg tablet Take 1 tablet 3 times a day by oral route as needed. active Not Available Not Available No t Available omeprazole 40 mg capsule,del ayed release Take 1 capsule every day by oral route. active Not Available Not Available No t Available glimepiride 2 mg tablet Take 1 tablet every day by oral route. active Not Available Not Available No t Available amlodipine 10 mg tablet Take 1 tablet every day by oral route. active Not Available Not Available No t Available metformin 1,000 mg tablet Take 1 tablet twice a day by oral route. active Not Available Not Available No t Available hydrochloro thiazide 25 mg tablet Take 1 tablet every day by oral route. active Not Available Not Available No t Available losartan 100 mg tablet Take 1 tablet every day by oral route. active Not Available Not Available No t Available MoviPrep 100 gram-7.5 gram-2.691 gram oral powder packet Take as directed in office. 09/19 completed Not Available Not Available Not Available omega-3 fatty acids-fish oil 300 mg-1,000 mg capsule Take 1 capsule every day by oral route. active Not Available Not Available No t Available empaglifloz in 25 mg tablet Take 1 tablet every day by oral route. active Not Available Not Available No t Available Vitals Date Recorded Body height Body mass index (BMI) Body weight Oxygen saturation Oxygen saturation in Arterial blood by Pulse oximetry Heart rate Systolic blood pressure Diastolic blood pressure Provider Name and Address Organization Details Last Updated DateTime 5 177.8 cm 30.9 kg/m2 46068.8 7 g 96 % 96 % 71 /min 142 mm[Hg] 67 mm[Hg] Jasmina Cohen LPN [place] [facility] [place] 5 10:48:59 Date Recorded Body height Body mass index (BMI) Body weight Oxygen saturation Oxygen saturation in Arterial blood by Pulse oximetry Heart rate Systolic blood pressure Diastolic blood pressure Provider Name and Address Organization Details Last Updated DateTime 5 177.8 cm 30.2 kg/m2 16162.9 1 g 95 % 95 % 85 /min 130 mm[Hg] 84 mm[Hg] [facility] [place] 5 10:47:34 Date Recorded Body height Body mass index (BMI) Body weight Oxygen saturation Oxygen saturation in Arterial blood by Pulse oximetry Heart rate Systolic blood pressure Diastolic blood pressure Provider Name and Address Organization Details Last Updated DateTime 5 177.8 cm 31.1 kg/m2 31409.4 7 g 96 % 96 % 82 /min 133 mm[Hg] 67 mm[Hg] Daya MilanMAGDALENABaldemar [address] 5 09:56:15 Social History Question Answer Notes LastModified by Organizat ion Details LastModified Time Tobacco Smoking Status Never Smoker Jasmina JAIME Cohen null, [address] 08/04/2024 10:56:37 What Is Your Level Of Caffeine Consumption? Moderate [email or web address] Information not available 08/04/2024 What Was The Date Of Your Most Recent Tobacco Screening? 09/20/2024 [email or web address] Information not available 09/20/2024 Sex: Unknown Functional Status Question Answer Note LastModified by Organizat ion Details LastModified Time Do you use any illicit or recreational drugs? No [email or web address] Information not available 08/04/2024 Do you or have you ever used any other forms of tobacco or nicotine? No [email or web address] Information not available 08/04/2024 What is your level of alcohol consumption? None Hx of heavy alcohol use, quit around 1999 [email or web address] Information not available 08/04/2024 Mental Status None recorded. Family History Relationship Description Onset Age of this Age Resolved Age Notes LastModified by Organization Details LastModified Time Paternal Grandmother Cerebrovascu lar accident [email or web address] Not available 10:52:27 Paternal Grandfather Cerebrovascu lar accident [email or web address] Not available 10:52:27 Maternal Grandfather Cerebrovascu lar accident [email or web address] Not available 10:52:27 Paternal Uncle Myocardial infarction [email or web address] Not available 07/08 10:55:43 Medical History Condition Response DIABETES Y HIGH CHOLESTEROL Y CANCER Y HYPERTENSION Y Past Encounters Encounter ID Performer Location Encounter Start Date Encounter Closed Date Diagnosis/Indication Diagnosis SNOMED-CT Code Diagnosis ICD10 Code Diagnosis Note [id number] Robson Rice MD [facility] [address] [place] [address] 08/04/2024 10:23:38 08/04/2024 11:39:45 Ascites 957909798 R18.8 Cirrhosis of liver K74.60 Altered sj wel function 20790726 R19.4 Chronic diarrhea 1708043 09 K52.9 Hematochezia 996767093 K 92.1 [id number] Robson Rice MD [facility] [address] [place] [address] 09/20/2024 09:38:06 09/20/2024 11:27:46 Cirrhosis of liver 70035141 K74.60 routine labs and imaging of liver Ascites 481732130 R18.8 Low sodium diet 2 gram or less per day Hematochezia 240189704 K 92.1 check CBC Adenomatou s polyp of colon 140277256 D12.2 Esophageal varices without bleeding 78329376 I85.00 Anti-nucle ar factor detected 499872725 R76.8 [id number] Robson Rice MD [facility] [address] [place] [address] [place] [address] 11/02/2024 09:50:29 11/04/2024 11:31:28 Cirrhosis of liver 60028375 K74.60 Continue to monitorlab s and imaging of liver due in February 2025 Ascites 542260649 R18.8 Low sodium diet 2 gram or less per day Hematochezia 615364970 K 92.1 Awaiting insurance approval for General surgeon appt Adenomatou s polyp of colon 825464372 D12.2 Awaiting insurance approval for General surgery appointmen t for possible hemicolect malena. Esophageal varices without bleeding 34043456 I85.00 --EGD 10/12/2024 with variceal ligation x 6--EGD 08/11/2024 with variceal ligation x 5--Coreg 3.125 mg PO BID Vascular e ctasia of gastric antrum 43097487 K31.819 Continue to monitor Health Concerns Section Related Observation LastModified by Organization Detai ls LastModified Time None Recorded Concern Status LastModified by Organization Details LastModified Time None Recorded Advance Directives Directive None Recorded Payers Insurance Date Sequence Insurance Name Policy Number Policy Puga Covered Member ID Puga Member ID Guarantor Name 12/06/2024 [facility] ([facility] Barrera Menendez [id number] Barrera Menendez Notes Date Note Type Note Provider Name and Address Organization Details Recorded Time 08/04/2024 text/html 74 y/o male presents to clinic referred by [facility] for cirrhosis of liver. He reports that reports that about 20 years ago he use to drink a lot. He has not drink in over 20 years. He reports no family history of liver disease. He reports having bilateral lower quadrant pain. He reports that he has a bowel movement daily. He reports that he has diarrhea with some blood in his stools. He had a colonoscopy about a year ago in April. He had hemorrhoid surgery in April 2024. He has not previously had an EGD completed. LEIGHANN GOULD NP [address] [place] [address], [phone], [facility] [place] [place] 08/04/2024 12:50:37 09/20/2024 text/html 74 y/o male presents to clinic for follow up after having EGD, colonoscopy, labs and imaging completed. I reviewed with the patient the findings of his imaging, laboratory studies and endoscopic evaluation. He is having a couple bowel movements per day. He reports about 3 -4 soft bowel movements per day. He is having improvement in his acid reflux with the omeprazole. He is still having abdominal pain that is in the lower abdomen. LEIGHANN GOULD NP [address] [place] [address], [phone], [facility] [place] 09/21/2024 09:43:27 11/02/2024 text/html 74 y/o male presents to clinic for follow up after having EGD completed for esophageal varices. He reports that it took him a couple days after having the banding to be able to eat again. He reports that he did have some bleeding for a few days. He reports that he is having about 3 bowel movements per day. He has not yet heard anything about his general surgery appt. LEIGHANN GOULD, HEIDI [address] [facility], [place], [address], [facility] - [facility] [place] 11/02/2024 11:13:24
--- OUTSIDE RECORDS SUMMARY | 2024-12-11 17:08 | XMS_ITS | Clinical Summary ---
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
--- OUTSIDE RECORDS SUMMARY | 2024-12-11 17:09 | XMS_ITS | Clinical Summary ---
Author Organization [facility] Address [address] [facility] [address] [place] [address] Phone Care Team Providers Care Base Manager Name Role Phone Unavailable Primary Care Provider Unavailabl e Allergies Active Allergy Reactions Criticality Noted Date Comments Colestipol Abdominal Pain Low 01/22/2023 Gemfibrozil Abdominal Pain Low 01/22/2023 Lisinopril Rash Low 01/22/2023 Niacin (Bulk) Abdominal Pain Low 01/22/2023 Medications amLODIPine (NORVASC) 10 mg tablet Take 10 mg by mouth daily. Active atenoloL (TENORMIN) 100 mg tablet Take 100 mg by mouth daily. Active empagliflozin (JARDIANCE) 25 mg tablet Take 12.5 mg by mouth daily in the morning. Active losartan (COZAAR) 100 mg tablet Take 100 mg by mouth daily. Active metFORMIN (GLUCOPHAGE) 1,000 mg tablet Take 1,000 mg by mouth 2 times daily with meals. Active hydroCHLOROthia zide 25 mg tablet Take 25 mg by mouth daily. Active omega-3 fatty acids-fish oil 300-1,000 mg Capsule Take 1 Capsule by mouth daily. Active pravastatin (PRAVACHOL) 40 mg tablet Take 40 mg by mouth daily with supper. Active glimepiride (AMARYL) 2 mg tablet Take 2 mg by mouth daily with breakfast. Active hydrALAZINE (APRESOLINE) 25 mg tablet Take 25 mg by mouth 3 times daily as needed (for BP greater than 140). Active Active Problems Problem Noted Date Diagnosed Date Bright red rectal bleeding 04/25/2024 S/P hemorrhoidectomy 04/25/2024 Encounters Date Type Department Care Team Description 12/07/2024 External Device Data [facility]CTION Provider, Abstract 11/25/2024 External Device Data [facility] ABSTRACTION Provider, Abstract 11/25/2024 External Device Data [facility] ABSTRACTION Provider, Abstract 11/24/2024 External Device Data [facility]STRACTION Provider, Abstract 11/23/2024 External Device Data [facility] ABSTRACTION Provider, Abstract 10/12/2024 External Device Data [facility] ABSTRACTION Provider, Abstract 10/05/2024 External Device Data [facility] ABSTRACTION Provider, Abstract 10/05/2024 External Device Data [facility] ABSTRACTION Provider, Abstract from Last 3 Months Family History Medical History Relation Name Comments Colon Cancer Neg Hx Social History Tobacco Use Types Packs/Day Years Used Date Smoking Tobacco: Never Smokeless Tobacco: Never Tobacco Cessation:Counseling Given: Not Answered Alcohol Use Standard Drinks/Week Comments Not Currently 0 (1 standard drink = 0.6 oz pur e alcohol) Feeling Safe Answer Date Recorded Are you in a relationship wi th someone who hurts you emotionally and/or physically? 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 Gender Identity Not on file Sexual Orientation Not on file Last Filed Vital Signs Vital Sign Reading Time Taken Comments Blood Pressure 133/66 04/28/2024 11:19 AM CDT Pulse 75 04/28/2024 11:19 AM CDT Temperature 36.8 C (98.2 F) 04/28/2024 11:19 AM CDT Respiratory Rate 18 04/28/2024 11:19 AM CDT Oxygen Saturation 98% 04/28/2024 11:19 AM CDT Inhaled Oxygen Concentration - - Weight 99.3 kg (219 lb) 04/28/2024 11:19 AM CDT Height 177.8 cm (5' 10 ) 04/28/2024 11:19 AM CDT Body Mass Index 31.42 04/28/2024 11:19 AM CDT Plan of Treatment Health Maintenance Due Date Last Done Comments DIABETES ANNUAL FOOT EXAM 1967 DIABETES ANNUAL RETINAL EXAM 1967 DIABETES MICROALBUMIN ANNUAL SCREEN 1967 LDL CHOLESTEROL ANNUAL 1967 FIT-DNA Q 3 years 1994 FIT/FOBT Q 1 year 1994 Flex Sig/CT Colonography Q 5 years 1994 PNEUMOCOCCAL VACCINE 50+ YEA RS (2 of 2 - PCV) 09/28/2022 09/28/2021 INFLUENZA VACCINE (#1) 2024 RSV VACCINE (60+ or ) (1 - 1-dose 75+ series) 2024 DIABETES HBA1C Q 6 MONTHS 08/15/2024 02/13/2024 COLORECTAL SCREENING 02/10/2033 02/10/2023 Colorectal Cancer Screening 02/10/2033 DTAP/TDAP/TD VACCINES (3 - T d or Tdap) 09/15/2033 09/16/2023, 01/01/2013, 10/05/2000 ZOSTER VACCINE Completed 03/27/2022, 09/28/2021 Medical Devices Implanted Type Area Safety Attendant Device Identifier Shelf Expiration Date Model / Serial / Lot Plate Plate Right: Ankle Insurance * Guarantor: [facility] V (C) Account Type Relation to Patient Date of Phone Billing Address Corporate Other DEFAULT ADDRESS [address] [place] * Guarantor: [employer] V (C) Account Type Relation to Patient Date of Phone Billing Address Corporate Other DEFAULT ADDRESS [address] [facility] Advance Directives For more information, please contact: [phone] * Full Code (Latest Code Status on File) Date Activated Date Inactivated Comments 04/12/2024 7:01 AM 04/12/2024 10:14 AM * Full Code Date Activated Date Inactivated Comments 04/12/2024 6:45 AM 04/12/2024 7:00 AM
--- OUTSIDE RECORDS SUMMARY | 2024-12-11 17:09 | XMS_ITS | Encounter Summary ---
Author Organization [facility] Address [address] [place] [address] Care Team Providers Care Preschool Teacher Name Role Phone Unavailable Primary Care Provider Unavailabl e Encounter Details Date Type Department Care Team (Late st Contact Info) Description 12/07/2024 External Device Data [facility] Provider, Abstract NO ADDRESS ON FILE Social History Tobacco Use Types Packs/Day Years Used Date Smoking Tobacco: Never Smokeless Tobacco: Never Alcohol Use Standard Drinks/Week Comments Not Currently 0 (1 standard drink = 0.6 oz pur e alcohol) Feeling Safe Answer Date Recorded Are you in a relationship wi th someone who hurts you emotionally and/or physically? 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
[2024-12-11 17:45] LABS: Urine Random Chloride 11 mmol/L
[2024-12-11 17:49] LABS: Urine Random Sodium < 20 mmol/L
--- NOTE | 2024-12-11 18:02 | PC.NURSE ---
antibiotics ordered @1800 delayed d/t pending blood culture draw
[2024-12-11] MEDS: sodium chloride 0.9% 1,000 ML 75 ML IV (18:08)
[2024-12-11] MEDS: heparin 5,000 unit/mL INJ 1 mL 5000 UNIT SUBCUT (18:08)
[2024-12-11 18:34] LABS: Hematocrit 21.9 % (37-53); Mean Corpuscular HGB Conc 30.6 g/dL (30-55); Mean Corpuscular Hemoglobin 28.4 pg (27-33); Mean Corpuscular Volume 92.8 fl (82-101); Mean Platelet Volume 10.2 fL (7.4-10.4); Platelet Count 364 10^3/cmm (157-399); Red Blood Count 2.36 10^6/uL (3.85-5.65); Red Cell Distribution Width 17.7 % (12.1-15.1); White Blood Count 18.78 10^3/uL (3.29-11.43)
[2024-12-11 18:56] LABS: Alanine Aminotransferase 14 U/L (0-41); Albumin Level 2.8 g/dL (3.5-5.2); Alkaline Phosphatase 113 U/L (40-130); Anion Gap 21.2 (5-19); Aspartate Amino Transferase 16 U/L (0-40); Calcium 7.9 mg/dL (8.5-10.5); Carbon Dioxide 15 mmol/L (22-29); Chloride 97 mmol/L (98-107); Creatinine Clr Calc Pharmacy 19.3037; Globulin 3.8 g/dL (1.3-4.6); Glucose 181 mg/dL (65-115); Osmolality Calculated 301 mOsm/kg (285-295); Potassium 4.2 mmol/L (3.5-5.1); Sodium 129 mmol/L (136-145); Total Bilirubin 0.4 mg/dL (0.15-1.2); Total Protein 6.6 g/dL (6.6-8.7)
[2024-12-11 18:57] LABS: Ammonia 25 umol/L (16-60); Slide Review Slide Review Perform
[2024-12-11 19:03] LABS: Blood Urea Nitrogen 92 mg/dL (8-23)
[2024-12-11 19:12] LABS: Procalcitonin 4.05 ng/mL (0-0.5); Thyroid Stimulating Hormone 1.71 uIU/mL (0.27-4.20); Vitamin B12 608 pg/mL (232-1245)
[2024-12-11] MEDS: piperacillin-tazobactam 3.375 GM in sodium chloride 0.9% (plus) 50 ML IV (19:18)
[2024-12-11 19:23] LABS: Chol HDL Ratio 4.55 mg/dL (1.0-5.00); Cholesterol 100 mg/dL (0-200); Ferritin 588 ng/mL (30-400); HDL Cholesterol 22 mg/dL (60-100); Iron 19 ug/dL (59-158); LDL Cholesterol Calculated 44 mg/dL (50-129); Total Iron Binding Capacity 190 mcg/dl; Triglycerides 171 mg/dL (0-150); Unsaturated Iron Binding 171 ug/dL (112-347); VLDL Cholestrol Calculation 34 mg/dL (0-30)
[2024-12-11] MEDS: sodium bicarbonate 8.4% 1 mEq/mL 50mL Syr 50 MEQ IVP (23:22)
[2024-12-12 00:10] VITALS: BP 104/53; PULSE 72; RESP 18; TEMP 36.6; O2SAT 95
[2024-12-12 00:25] VITALS: BP 117/57; PULSE 72; RESP 20; TEMP 36.6; O2SAT 96
[2024-12-12 01:25] VITALS: BP 108/57; PULSE 71; RESP 18; TEMP 36.5; O2SAT 96
[2024-12-12 02:04] VITALS: BP 116/60; PULSE 71; RESP 20; TEMP 36.7; O2SAT 96
[2024-12-12] MEDS: albumin 25 G/100 ML BAG 60 G IV ×3 (05:41→21:30)
[2024-12-12] MEDS: piperacillin-tazobactam 3.375 GM in sodium chloride 0.9% (plus) 50 ML IV ×2 (05:41→17:50)
[2024-12-12 06:30] LABS: Basophils # 0.1 10^3/uL (0.0-0.1); Basophils % 0.7 %; Eosinophils # 0.1 10^3/uL (0.0-0.8); Eosinophils % 0.7 %; Lymphocytes # 0.6 10^3/uL (0.8-4.8); Lymphocytes % 3.9 %; Mean Corpuscular HGB Conc 29.6 g/dL (30-55); Mean Corpuscular Hemoglobin 27.8 pg (27-33); Mean Platelet Volume 10.4 fL (7.4-10.4); Monocytes # 1.3 10^3/uL (0.2-0.9); Monocytes % 7.9 %; Neutrophils # 12.43 10^3/uL (1.8-7.7); Neutrophils % 76.3 %; Nucleated Red Blood Cells % 0 %; Platelet Count 355 10^3/cmm (157-399); Red Blood Count 2.66 10^6/uL (3.85-5.65); Red Cell Distribution Width 17.2 % (12.1-15.1); White Blood Count 16.32 10^3/uL (3.29-11.43)
[2024-12-12 06:41] LABS: INR 1.09 (0.8-1.2)
[2024-12-12 06:47] LABS: Alanine Aminotransferase 12 U/L (0-41); Albumin Level 2.8 g/dL (3.5-5.2); Alkaline Phosphatase 99 U/L (40-130); Anion Gap 20.8 (5-19); Aspartate Amino Transferase 15 U/L (0-40); Calcium 7.9 mg/dL (8.5-10.5); Carbon Dioxide 16 mmol/L (22-29); Chloride 100 mmol/L (98-107); Creatinine Clr Calc Pharmacy 20.5738; Globulin 3.8 g/dL (1.3-4.6); Glucose 110 mg/dL (65-115); Magnesium 2.2 mg/dL (1.7-2.3); Osmolality Calculated 306 mOsm/kg (285-295); Potassium 3.8 mmol/L (3.5-5.1); Sodium 133 mmol/L (136-145); Total Bilirubin 0.6 mg/dL (0.15-1.2); Total Protein 6.6 g/dL (6.6-8.7)
[2024-12-12 07:13] LABS: Slide Review Slide Review Perform
[2024-12-12 07:18] LABS: Blood Urea Nitrogen 94 mg/dL (8-23)
[2024-12-12] MEDS: sodium chloride 0.9% 1,000 ML 75 ML IV (07:31)
--- NOTE | 2024-12-12 09:07 | P.PN_ITS ---
Subjective 2 Subjective: feels better UOP 600 ml Medications: Reviewed: Yes Vitals/I&O/Wt Last Vital Signs Temp 98.0 F 12/12/24 02:04 Pulse 71 12/12/24 02:04 Resp 20 H 12/12/24 02:04 BP 116/60 12/12/24 02:04 Pulse Ox 96 12/12/24 02:04 O2 Del Method Nasal Cannula 12/11/24 21:20 O2 Flow Rate 2 12/11/24 18:15 12/11/24 12/12/24 12/12/24 22:59 06:59 14:59 Intake Total 210 / 2092.45 680 / 2772.45 1100 / 1100 Output Total 50 / 50 550 / 600 Balance 160 / 2042.45 130 / 2172.45 1100 / 1100 Weight last 48 hrs Weight 107 kg Weight 104 kg Weight 104.326 kg Physical Exam 2 Narrative: awake , alert , no distress PEERLA S12 RRR per report Lungs clear per report Abd - soft , distended no edema Urinary Catheter Management: Hillman: Cath Placed During This Visit: yes Reason for Continuing Indwelling Catheter: Accurate Measurement of Urinary Output in Critically Ill Patients Urinary Catheter Date of Insertion: 12/11/24 Urinary Catheter Time of Insertion: 10:13 Data 12/12/24 06:01 12/12/24 06:01 Micro: Microbiology 12/11/24 18:19 Blood Culture - Preliminary Blood SPECIMEN COLLECTED 12/11/24 18:17 Blood Culture - Preliminary Blood SPECIMEN COLLECTED A&P Assessment and plan (1) Acute kidney injury: Plan 1. Acute kidney injury: Baseline creatinine seems to be normal about couple of months ago now has JETT with a creatinine of 4.2, associated with metabolic acidosis. Patient oliguric. Suspect etiology likely from prerenal from poor p.o. intake in the setting of underlying liver cirrhosis. Check urine electrolytes. HRS also possible. - Hold HCTZ, CARMENCITA inhibitor and empagliflozin - continue IV fluids, added IV albumin and midodrine p.o. - No acute indication for HD currently, 2. Liver cirrhosis: Diuretics on hold, getting IV albumin and midodrine for now 3. Hyponatremia: Mild in the setting of liver cirrhosis, continue to monitor 4. Metabolic acidosis, IVFs switched to bicarbonate drip Patient evaluated using audiovisual cart. Time spent 40 minute PDMP PDMP Reviewed: Not Reviewed Attestations 2 Medical Necessity Statement*: per birdie Coding Level of Care Code Acute Code for Chg Fwd Diagnoses Acute kidney injury N17.9
[2024-12-12] MEDS: midodrine 5 mg TABLET 10 MG PO ×3 (09:35→21:29)
[2024-12-12] MEDS: sodium bicarbonate 150 MEQ in dextrose 5% 1,000 ML 75 MEQ IV (10:05)
[2024-12-12 10:31] VITALS: RESP 22
[2024-12-12] MEDS: morphine 4 mg/mL SDV 1 mL 2 MG IVP ×2 (10:31→21:39)
[2024-12-12] MEDS: dexmedeTOMIDine 0.9 % NaCL 400 MCG/100 ML PREMIX IV (10:32)
--- NOTE | 2024-12-12 12:45 | P.PN_ITS ---
Subjective 2 Subjective: Patient was seen this morning, he is alert oriented x 3, following all commands, he does report abdominal distention his abdomen continues to be very tight very distended he is having trouble breathing with it, he feels anxious - Brad trying Precedex to help with anxi ety, morphine for pain - Unfortunately over the weekend we do n ot have IR to tap his ascites, - Discussed waiting until tomorrow versu s transfer to tertiary level center - We also discussed his acute liver fail ure, with evidence of cardiorenal syndrome and acute renal failure - So far he does not need dialysis, urin e output is slowly improving creatinine is improving - Discussed his spontaneous bacterial pe ritonitis concerns once we have him undergo paracentesis we can test the ascitic fluid to see if he has SBP but will continue antibiotics for now - We discussed his GI physician's [place] but he adamantly does not want to go to [place] - His is at bedside -he is adamant that his liver cirrhosis is from fatty liver disease, - Told me about a week ago he had colect malena for multiple polyps, done in [place] - He has been weak since surgery - Also has invasive prostate cancer, wit h retroperitoneal lymphadenopathy, has been on radiation chemotherapy, currently in remission - He was found to be anemic overnight, r equired 1 unit PRBC, denies any blood or black stools - He did have a history of esophageal va rices requiring band ligation twice in [facility] in [place] - We discussed transfer to tertiary [facility] for consideration of GI, urgent paracentesis - Patient and would prefer [facility], patient does not want to go back to [place] - Discussed risk of benefits of transfer , he voiced understanding, all questions are, agreed to proceed - Spoke to [facility], spoke to transf er line, awaiting a callback Vitals/I&O/Wt Last Vital Signs Temp 98.0 F 12/12/24 02:04 Pulse 71 12/12/24 02:04 Resp 22 H 12/12/24 10:31 BP 116/60 12/12/24 02:04 Pulse Ox 96 12/12/24 02:04 O2 Del Method Nasal Cannula 12/11/24 21:20 O2 Flow Rate 2 12/11/24 18:15 12/11/24 12/12/24 12/12/24 22:59 06:59 14:59 Intake Total 210 / 2.45 680 / 2772.45 1150 / 1150 Output Total 50 / 50 550 / 600 Balance 160 / 2042.45 130 / 2172.45 1150 / 1150 Weight last 48 hrs Weight 107 kg Weight 104 kg Weight 104.326 kg Physical Exam 2 Const: COMMON NORMALS: no acute distress and patient oriented x3 Resp: COMMON NORMALS: normal respiratory effort, No retractions, No use of accessory muscles and clear to auscultation bilaterally AUSCULTATION: clear to auscultation bilaterally Cardio: COMMON NORMALS: regular rate, regular rhythm, S1 normal heart sound present and S2 normal heart sound present RATE: regular rate RHYTHM: r egular rhythm HEART SOUNDS: S1 normal heart sound present and S2 normal heart sound present GI: OTHER: Abdomen soft, distended, fluid wave present, no guarding, no rebound, rigidity Extremity: COMMON NORMALS: no pedal edema Neuro: COMMON NORMALS: patient oriented x3 Psych: COMMON NORMALS: mental status grossly normal Urinary Catheter Management: Hillman: Cath Placed During This Visit: yes Reason for Continuing Indwelling Catheter: Accurate Measurement of Urinary Output in Critically Ill Patients Urinary Catheter Date of Insertion: 12/11/24 Urinary Catheter Time of Insertion: 10:13 Data 12/12/24 06:01 12/12/24 06:01 Micro: Microbiology 12/11/24 18:19 Blood Culture - Preliminary Blood SPECIMEN COLLECTED 12/11/24 18:17 Blood Culture - Preliminary Blood SPECIMEN COLLECTED A&P Assessment and plan (1) Acute renal failure: (2) RIVERA (nonalcoholic steatohepatitis): (3) Transaminitis: (4) Cirrhosis: (5) Acute kidney injury: (6) Malignant neoplasm of prostate: (7) Generalized weakness: (8) Nausea & vomiting: (9) Dehydration: (10) Hepatorenal syndrome: (11) Hypotension: (12) Leukocytosis: Plan #Nausea vomiting -Nausea control #Dehydration -Bicarb drip #Hypotension most likely secondary to - dehydration, concerns for spontaneous bacterial peritonitis #JETT, urine output 600, new onset creatinine 3.8, BUN 94 -Concerns for hepatorenal syndrome -Nephrology consulted -Bicarb drip # Uremia -Bicarb drip #Abdominal ascites, complaints of shortness of breath, anxiety -Awaiting paracentesis #Leukocytosis, bandemia, concern for spontaneous pressure peritonitis - Await paracentesis -Continue Zosyn #History of liver cirrhosis, esophageal varices status post banding x 2 #History of prostate cancer in remission -Status post chemoradiation therapy #Chronic anemia hemoglobin 7.4 -status post 1 unit PRBC - Monitor hemoglobin -Protonix, Carafate -Hemoccult stool # History of liver cirrhosis secondary to fatty liver disease -Follows up with GI in [place] # Type 2 diabetes mellitus, low-dose sliding scale ? Continue albumin therapy # Acute hypoxic respiratory failure, with anasarca - Secondary fluid overload - Monitor urine output, monitor creatinine, monitor respiratory status - Will consider BiPAP Full code DVT prophylaxis: Heparin SQ twice daily, hold given anemia anxiety precedex PDMP PDMP Reviewed: Not Reviewed Attestations 2 Medical Necessity Statement*: Patient requires hospitalization for concerns for spontaneous bacterial peritonitis, acute renal failure, acute anemia Diagnoses Acute renal failure N17.9 RIVERA (nonalcoholic steatohepatitis) K75.81 Transaminitis R74.01 Cirrhosis K74.60 Acute kidney injury N17.9 Malignant neoplasm of prostate C61 Generalized weakness R53.1 Nausea & vomiting R11.2 Dehydration E86.0 Hepatorenal syndrome K76.7 Hypotension I95.9 Leukocytosis D72.829
[2024-12-12 13:19] LABS: Estmated Average Glucose 120; Hemoglobin A1C 5.8 % (4.0-6.0)
--- NOTE | 2024-12-12 13:50 | PC.NURSE ---
this am had episode of anxiety and short of breath abdomen remains large and distended reverse [place] position to assist very anxious restless morphine given for comfort and precedex gtt started for comfort after short time resp status improved vital sign remain good
[2024-12-12 17:40] LABS: Glucose Point of Care 160 mg/dL (70-110)
[2024-12-12] MEDS: insulin lispro 100 unit/1 mL SUBCUT (17:50)
[2024-12-12] MEDS: pantoprazole 40 mg SDV IVP (17:50)
[2024-12-12] MEDS: sucralfate 1 gm/10 mL Oral Liq UDC PO ×2 (17:50→21:29)
[2024-12-12 21:37] LABS: Glucose Point of Care 142 mg/dL (70-110)
[2024-12-12 21:39] VITALS: RESP 18; O2SAT 95
[2024-12-13] MEDS: sodium bicarbonate 150 MEQ in dextrose 5% 1,000 ML 75 MEQ IV (00:26)
[2024-12-13 05:34] LABS: Basophils # 0.1 10^3/uL (0.0-0.1); Basophils % 0.4 %; Eosinophils # 0.2 10^3/uL (0.0-0.8); Eosinophils % 1.2 %; Hematocrit 22.4 % (37-53); Lymphocytes # 0.5 10^3/uL (0.8-4.8); Lymphocytes % 4.1 %; Mean Corpuscular Hemoglobin 28.2 pg (27-33); Mean Corpuscular Volume 85.5 fl (82-101); Mean Platelet Volume 10.2 fL (7.4-10.4); Monocytes # 1.3 10^3/uL (0.2-0.9); Monocytes % 10.2 %; Neutrophils # 9.44 10^3/uL (1.8-7.7); Neutrophils % 75.4 %; Nucleated Red Blood Cells % 0 %; Platelet Count 338 10^3/cmm (157-399); Red Blood Count 2.62 10^6/uL (3.85-5.65); Red Cell Distribution Width 17.2 % (12.1-15.1); White Blood Count 12.51 10^3/uL (3.29-11.43)
[2024-12-13 05:50] LABS: Slide Review Slide Review Perform
[2024-12-13 05:57] LABS: Alanine Aminotransferase 12 U/L (0-41); Albumin Level 3.3 g/dL (3.5-5.2); Alkaline Phosphatase 112 U/L (40-130); Aspartate Amino Transferase 20 U/L (0-40); Calcium 7.8 mg/dL (8.5-10.5); Carbon Dioxide 19 mmol/L (22-29); Chloride 99 mmol/L (98-107); Creatinine Clr Calc Pharmacy 22.2341; Globulin 2.5 g/dL (1.3-4.6); Glucose 144 mg/dL (65-115); Osmolality Calculated 311 mOsm/kg (285-295); Sodium 134 mmol/L (136-145); Total Bilirubin 0.5 mg/dL (0.15-1.2); Total Protein 5.8 g/dL (6.6-8.7)
[2024-12-13 06:13] LABS: Anion Gap 19.9 (5-19); Blood Urea Nitrogen 98 mg/dL (8-23); Potassium 3.9 mmol/L (3.5-5.1)
[2024-12-13] MEDS: piperacillin-tazobactam 3.375 GM in sodium chloride 0.9% (plus) 50 ML IV ×2 (06:26→17:37)
[2024-12-13] MEDS: albumin 25 G/100 ML BAG 60 G IV (06:26)
[2024-12-13] MEDS: pantoprazole 40 mg SDV IVP ×2 (06:26→17:36)
[2024-12-13] MEDS: sucralfate 1 gm/10 mL Oral Liq UDC PO ×4 (06:27→21:16)
[2024-12-13 08:52] LABS: Glucose Point of Care 185 mg/dL (70-110)
[2024-12-13] MEDS: midodrine 5 mg TABLET 10 MG PO ×2 (08:56→21:16)
[2024-12-13] MEDS: insulin lispro 100 unit/1 mL SUBCUT ×3 (08:56→17:36)
[2024-12-13 10:07] LABS: Hematocrit 26.3 % (37-53)
--- NOTE | 2024-12-13 10:27 | XRR_ITS ---
PROCEDURE INFORMATION: Exam: XR Chest Exam date and time: 12/13/2024 11:02 AM Age: 74 years old Clinical indication: Shortness of breath; Additional info: SOB TECHNIQUE: Imaging protocol: Radiologic exam of the chest. Views: 1 view. COMPARISON: CR (CHEST, ) 12/11/2024 9:19 AM FINDINGS: Lungs: Linear opacity in the left lower lung zone suggests subsegmental atelectasis. No focal consolidation. Low lung volumes. Pleural spaces: Unremarkable. No pleural effusion. No pneumothorax. Heart/Mediastinum: Unremarkable. No cardiomegaly. Bones/joints: Unremarkable. XR/XR chest 1V portable [id number] IMPRESSION: Minimal atelectasis in the left lower lung zone.
--- NOTE | 2024-12-13 11:31 | P.PN_ITS ---
Subjective 2 Subjective: Doing much better today. Eating breakfast. Some short of breath due to abdominal tension from ascites Vitals/I&O/Wt Last Vital Signs Temp 98.0 F 12/12/24 02:04 Pulse 71 12/12/24 02:04 Resp 18 12/12/24 21:39 BP 116/60 12/12/24 02:04 Pulse Ox 95 12/12/24 21:39 O2 Del Method Nasal Cannula 12/11/24 21:20 O2 Flow Rate 2 12/11/24 18:15 12/12/24 12/13/24 12/13/24 22:59 06:59 14:59 Intake Total 356.135 / 8548.208 3996.25 / 2864.346 100 / 100 Output Total 850 / 850 450 / 1300 Balance -493.865 / 668.096 896.25 / 1564.346 100 / 100 Weight last 48 hrs Weight 106 kg Weight 107 kg Weight 104 kg Physical Exam 2 Narrative: Alert and oriented no acute distress Heart regular normal S1-S2 without murmurs clicks gallops or rubs Lungs clear to auscultation Abdomen with tense ascites. 3 incisions with localized erythema the one in the left lower quadrant had pus that I was able to express this is superficial Extremities no clubbing cyanosis or edema Urinary Catheter Management: Hillman: Cath Placed During This Visit: yes Reason for Continuing Indwelling Catheter: Accurate Measurement of Urinary Output in Critically Ill Patients Urinary Catheter Date of Insertion: 12/11/24 Urinary Catheter Time of Insertion: 10:13 Data 12/13/24 09:56 12/13/24 05:13 Micro: Microbiology 12/11/24 09:56 Urine Culture - Preliminary Urine Catheterized 12/11/24 18:19 Blood Culture - Preliminary Blood NEGATIVE TO DATE 12/11/24 18:17 Blood Culture - Preliminary Blood NEGATIVE TO DATE A&P Assessment and plan (1) Acute renal failure: Nephrology following appreciate input (2) RIVERA (nonalcoholic steatohepatitis): (3) Cirrhosis: (4) Acute kidney injury: As above (5) Malignant neoplasm of prostate: (6) Generalized weakness: Out of bed to chair (7) Dehydration: (8) Hepatorenal syndrome: (9) Hypotension: On midodrine (10) Leukocytosis: Resolving Plan #Hypotension most likely secondary to - dehydration, concerns for spontaneous bacterial peritonitis #JETT, urine output 600, -Concerns for hepatorenal syndrome -Nephrology following -Bicarb drip-I discontinued this will reevaluate with nephrology later # Uremia #Abdominal ascites, complaints of shortness of breath, anxiety -Awaiting paracentesis-today #Leukocytosis, bandemia, concern for spontaneous pressure peritonitis -Continue Zosyn - Cultures will likely be negative since already on antibiotics. #History of liver cirrhosis, esophageal varices status post banding x 2 #History of prostate cancer in remission -Status post chemoradiation therapy #Chronic anemia hemoglobin 7.4 -status post 1 unit PRBC - Monitor hemoglobin -Protonix, Carafate -Hemoccult stool # Type 2 diabetes mellitus, low-dose sliding scale # Acute hypoxic respiratory failure, with anasarca - Secondary fluid overload - Monitor urine output, monitor creatinine, monitor respiratory status Full code DVT prophylaxis: Heparin SQ twice daily, hold given anemia PDMP PDMP Reviewed: Not Reviewed Attestations 2 Medical Necessity Statement*: Patient requires hospitalization for concerns for spontaneous bacterial peritonitis, acute renal failure, acute anemia Coding Level of Care Code Acute Code for [facility] Fwd Diagnoses Acute renal failure N17.9 RIVERA (nonalcoholic steatohepatitis) K75.81 Cirrhosis K74.60 Acute kidney injury N17.9 Malignant neoplasm of prostate C61 Generalized weakness R53.1 Dehydration E86.0 Hepatorenal syndrome K76.7 Hypotension I95.9 Leukocytosis D72.829
[2024-12-13] MEDS: FUROsemide 10 mg/mL SDV 2mL 40 MG IVP (12:06)
[2024-12-13 12:16] LABS: Glucose Point of Care 176 mg/dL (70-110)
[2024-12-13 13:58] LABS: Apprearance, Body Fluid CLOUDY; Color, Body Fluid AMBER; Cyto Order Verification Order Verified; Fluid Laterality PERITONEAL FLUID; PATH Referral YES
--- NOTE | 2024-12-13 14:01 | P.PN_ITS ---
Subjective 2 Subjective: c/o SOB Medications: Reviewed: Yes Vitals/I&O/Wt Last Vital Signs Temp 98.0 F 12/12/24 02:04 Pulse 71 12/12/24 02:04 Resp 18 12/12/24 21:39 BP 116/60 12/12/24 02:04 Pulse Ox 95 12/12/24 21:39 O2 Del Method Nasal Cannula 12/11/24 21:20 O2 Flow Rate 2 12/11/24 18:15 12/12/24 12/13/24 12/13/24 22:59 06:59 14:59 Intake Total 356.135 / 4268.353 9797.25 / 2864.346 717.5 / 717.5 Output Total 850 / 850 450 / 1300 Balance -493.865 / 668.096 896.25 / 1564.346 717.5 / 717.5 Weight last 48 hrs Weight 106 kg Weight 107 kg Weight 104 kg Physical Exam 2 Narrative: awake , alert , no distress PEERLA S12 RRR per report Lungs clear per report Abd - soft , distended no edema Urinary Catheter Management: Hillman: Cath Placed During This Visit: yes Reason for Continuing Indwelling Catheter: Accurate Measurement of Urinary Output in Critically Ill Patients Urinary Catheter Date of Insertion: 12/11/24 Urinary Catheter Time of Insertion: 10:13 Data 12/13/24 09:56 12/13/24 05:13 Micro: Microbiology 12/11/24 09:56 Urine Culture - Preliminary Urine Catheterized 12/11/24 18:19 Blood Culture - Preliminary Blood NEGATIVE TO DATE 12/11/24 18:17 Blood Culture - Preliminary Blood NEGATIVE TO DATE A&P Assessment and plan (1) Acute kidney injury: Plan 1. Acute kidney injury: Baseline creatinine seems to be normal about couple of months ago now has JETT with a creatinine of 4.2, associated with metabolic acidosis. Patient oliguric. Suspect etiology likely from prerenal from poor p.o. intake in the setting of underlying liver cirrhosis. Check urine electrolytes. HRS also possible. - Hold HCTZ, CARMENCITA inhibitor and empagliflozin - s/p IV fluids, s/p IV albumin and midodrine p.o. -c/o SOB--> Ordered IV lasix , - No acute indication for HD today but if continue to have volume overload , will discuss temporary HD 2. Liver cirrhosis: Diuretics on hold, getting IV albumin and midodrine for now 3. Hyponatremia: Mild in the setting of liver cirrhosis, continue to monitor 4. Metabolic acidosis, IVFs switched to bicarbonate drip Patient evaluated using audiovisual cart. Time spent 40 minute PDMP PDMP Reviewed: Not Reviewed Attestations 2 Medical Necessity Statement*: per medicine Coding Level of Care Code Acute Code for Chg Fwd Diagnoses Acute kidney injury N17.9
[2024-12-13 14:09] LABS: Body Fluid Polynuclear #Cells 0.308; Body Fluid WBC 585 /uL; Monocytes # Body Fluid 0.277
[2024-12-13 14:14] LABS: Body Fluid Specific Gravity 1.024
[2024-12-13 14:36] LABS: Fluid Alkaline Phos. 35 IU/L; Total Protein Body Fluid 3.2 g/dL
[2024-12-13 14:37] LABS: Albumin Body Fluid 1.8 g/dL; Cholesterol Body Fluid 44 mg/dL (0-200); LDH Body Fluid 146 U/L; Triglycerides Body Fluid 43 mg/dL (0-150); Uric Acid Body Fluid 14 mg/dL
--- NOTE | 2024-12-13 15:42 | PC.SOCIAL ---
IMM Update pg 2 of IMM Updated and reviewed w/ patient. Copy provided and copy dated, initialed and placed in chart.
--- NOTE | 2024-12-13 16:40 | US_ITS ---
WS: [id number] ULTRASOUND-GUIDED PARACENTESIS CLINICAL INFORMATION: ascites COMPARISON: None. Procedure Informed consent: The risks, benefits, and alternatives of the procedure were discussed with the patient. Verbal and written consent was obtained. Timeout: A timeout was performed to confirm the correct patient, procedure, and site. Preparation: A suitable skin site was identified. The patient was prepped and draped in usual sterile fashion. Lidocaine 1% was used for local anesthesia. Catheter: 4 Korean One-step Yueh catheter. Side: LEFT lower quadrant. Fluid Volume: 6550 ml Color: Yellow DISPOSITION: Discarded safely. Complications: None. US/US paracentesis abd w [id number] IMPRESSION: Uncomplicated ultrasound-guided paracentesis. Removal of 6550 cc
[2024-12-13 16:42] LABS: Hematocrit 26.4 % (37-53)
[2024-12-13 17:30] LABS: Glucose Point of Care 228 mg/dL (70-110)
[2024-12-13] MEDS: mupirocin oint 22 gm 1 APPLIC TOPICAL (21:16)
[2024-12-13 22:08] LABS: Hematocrit 23.8 % (37-53)
[2024-12-13 22:24] LABS: Glucose Point of Care 229 mg/dL (70-110)
[2024-12-14] MEDS: sodium bicarbonate 150 MEQ in dextrose 5% 1,000 ML 75 MEQ IV ×2 (01:27→23:56)
[2024-12-14] MEDS: pantoprazole 40 mg SDV IVP ×2 (06:09→18:33)
[2024-12-14] MEDS: piperacillin-tazobactam 3.375 GM in sodium chloride 0.9% (plus) 50 ML IV (06:09)
[2024-12-14] MEDS: sucralfate 1 gm/10 mL Oral Liq UDC PO ×4 (06:09→20:43)
[2024-12-14 08:53] LABS: Glucose Point of Care 208 mg/dL (70-110)
[2024-12-14] MEDS: cefTRIAXone 2,000 mg SDV 2000 MG IVP (09:07)
[2024-12-14] MEDS: albumin 12.5 GM/50 ML VIAL IV (09:07)
[2024-12-14] MEDS: insulin lispro 100 unit/1 mL SUBCUT ×3 (09:07→18:33)
[2024-12-14] MEDS: mupirocin oint 22 gm 1 APPLIC TOPICAL ×2 (09:07→18:34)
[2024-12-14 09:20] LABS: Anion Gap 19.3 (5-19); Blood Urea Nitrogen 75 mg/dL (8-23); Calcium 7.9 mg/dL (8.5-10.5); Carbon Dioxide 23 mmol/L (22-29); Chloride 100 mmol/L (98-107); Glucose 221 mg/dL (65-115); Osmolality Calculated 317 mOsm/kg (285-295); Potassium 3.3 mmol/L (3.5-5.1); Sodium 139 mmol/L (136-145)
[2024-12-14 10:11] LABS: Osmolality Urine 338 mOsm/kg (50-1200)
--- NOTE | 2024-12-14 10:55 | P.PN_ITS ---
Subjective 2 Subjective: Patient reports feeling much better today after the paracentesis. He says he is no longer short of breath. Vitals/I&O/Wt Last Vital Signs Temp 98.0 F 12/12/24 02:04 Pulse 71 12/12/24 02:04 Resp 18 12/12/24 21:39 BP 116/60 12/12/24 02:04 Pulse Ox 95 12/12/24 21:39 O2 Del Method Nasal Cannula 12/11/24 21:20 O2 Flow Rate 2 12/11/24 18:15 12/13/24 12/14/24 12/14/24 22:59 06:59 14:59 Intake Total 240 / 991.0 685 / 1676.0 Output Total 1500 / 8050 1500 / 9550 Balance -1260 / -7059.0 -815 / -7874.0 Weight last 48 hrs Weight 97.5 kg Weight 106 kg Physical Exam 2 Narrative: Alert and oriented no acute distress, breathing easier Heart regular normal S1-S2 without murmurs clicks gallops or rubs Lungs clear to auscultation Abdomen remains protuberant but no tension. The 3 incisions are now with medication and covered Extremities no clubbing cyanosis or edema Urinary Catheter Management: Hillman: Cath Placed During This Visit: yes Reason for Continuing Indwelling Catheter: Accurate Measurement of Urinary Output in Critically Ill Patients Urinary Catheter Date of Insertion: 12/11/24 Urinary Catheter Time of Insertion: 10:13 Data 12/13/24 22:00 12/14/24 08:55 Micro: Microbiology 12/11/24 09:56 Urine Culture - Final Urine Catheterized Gram Negative Rods 12/13/24 13:30 Gram Stain - Final Peritoneal Fluid Anaerobic Culture - Preliminary A&P Assessment and plan (1) Acute renal failure: Nephrology following appreciate input (2) RIVERA (nonalcoholic steatohepatitis): (3) Cirrhosis: (4) Acute kidney injury: As above (5) Malignant neoplasm of prostate: (6) Generalized weakness: Out of bed to chair (7) Dehydration: (8) Hepatorenal syndrome: (9) Hypotension: On midodrine (10) Leukocytosis: Resolving Plan #SBP -change abx to ceftriaxone 2 gm daily for 5 days and then prophylaxis of cipro once daily. albumin 25 gm daily #Hypotension most likely secondary to - Off home antihypertensives including Norvasc atenolol carvedilol hydrochlorothiazide and losartan - Currently on midodrine 10 mg 3 times daily will continue #JETT, urine output 600, - Likely hepatorenal syndrome and related to SBP -Nephrology following -Bicarb drip-restarted at lower rate by nephrology. Appreciate assistance # Uremia #Abdominal ascites, complaints of shortness of breath, anxiety - Paracentesis yesterday removing 6.5 L. #History of liver cirrhosis, esophageal varices status post banding x 2 #History of prostate cancer in remission -Status post chemoradiation therapy #Chronic anemia hemoglobin 7. 6 today stable since 12/12/2024. -status post 1 unit PRBC - Monitor hemoglobin -Protonix, Carafate # Type 2 diabetes mellitus, was on metformin at home this has been discontinued and he has been placed on low-dose sliding scale # Acute hypoxic respiratory failure, with anasarca - Secondary fluid overload Improving Plan for today: Transfer to floor. Does not need telemetry. Changed to ceftriaxone to treat spontaneous bacterial peritonitis. Albumin 25 g daily for SBP Continue midodrine PT OT Full code DVT prophylaxis: Heparin SQ twice daily, hold given anemia PDMP PDMP Reviewed: Not Reviewed Attestations 2 Medical Necessity Statement*: Patient requires hospitalization for concerns for spontaneous bacterial peritonitis, acute renal failure, acute anemia Coding Level of Care Code Acute Code for Chg Fwd Diagnoses Acute renal failure N17.9 RIVERA (nonalcoholic steatohepatitis) K75.81 Cirrhosis K74.60 Acute kidney injury N17.9 Malignant neoplasm of prostate C61 Generalized weakness R53.1 Dehydration E86.0 Hepatorenal syndrome K76.7 Hypotension I95.9 Leukocytosis D72.829
[2024-12-14 11:16] LABS: Glucose Point of Care 275 mg/dL (70-110)
[2024-12-14] MEDS: potassium chloride ER 20 mEq Tablet 40 MEQ PO (11:46)
--- NOTE | 2024-12-14 13:12 | P.PN_ITS ---
Subjective 2 Subjective: s/p arthrocetesis Medications: Reviewed: Yes Vitals/I&O/Wt Last Vital Signs Temp 98.0 F 12/12/24 02:04 Pulse 71 12/12/24 02:04 Resp 18 12/12/24 21:39 BP 116/60 12/12/24 02:04 Pulse Ox 95 12/12/24 21:39 O2 Del Method Nasal Cannula 12/11/24 21:20 O2 Flow Rate 2 12/11/24 18:15 12/13/24 12/14/24 12/14/24 22:59 06:59 14:59 Intake Total 240 / 991.0 685 / 1676.0 300 / 300 Output Total 1500 / 8050 1500 / 9550 Balance -1260 / -7059.0 -815 / -7874.0 300 / 300 Weight last 48 hrs Weight 97.5 kg Weight 106 kg Physical Exam 2 Narrative: awake , alert , no distress PEERLA S12 RRR per report Lungs clear per report Abd - soft , distended no edema Urinary Catheter Management: Hillman: Cath Placed During This Visit: yes Reason for Continuing Indwelling Catheter: Accurate Measurement of Urinary Output in Critically Ill Patients Urinary Catheter Date of Insertion: 12/11/24 Urinary Catheter Time of Insertion: 10:13 Data 12/13/24 22:00 12/14/24 08:55 Micro: Microbiology 12/13/24 13:30 Gram Stain - Final Peritoneal Fluid Anaerobic Culture - Preliminary Body Fluid Culture - Preliminary 12/11/24 09:56 Urine Culture - Final Urine Catheterized Gram Negative Rods A&P Assessment and plan (1) Acute kidney injury: Plan 1. Acute kidney injury: Baseline creatinine seems to be normal about couple of months ago now has JETT with a creatinine of 4.2, associated with metabolic acidosis. Patient oliguric. Suspect etiology likely from prerenal from poor p.o. intake in the setting of underlying liver cirrhosis. Check urine electrolytes. HRS also possible. - Hold HCTZ, CARMENCITA inhibitor and empagliflozin - s/p IV fluids, s/p IV albumin and midodrine p.o. -PRN IV lasix - No acute indication for HD today but if continue to have volume overload , will discuss temporary HD 2. Liver cirrhosis: Diuretics on hold, getting IV albumin and midodrine for now, s/p paracentesis 3. Hyponatremia: Mild in the setting of liver cirrhosis, continue to monitor 4. Metabolic acidosis, IVFs switched to bicarbonate drip Patient evaluated using audiovisual cart. Time spent 40 minute PDMP PDMP Reviewed: Not Reviewed Attestations 2 Medical Necessity Statement*: per birdie Coding Level of Care Code Acute Code for Chg Fwd Diagnoses Acute kidney injury N17.9
[2024-12-14 17:11] LABS: Glucose Point of Care 166 mg/dL (70-110)
[2024-12-14 18:25] VITALS: BP 170/95; PULSE 86; RESP 17; TEMP 36.6; O2SAT 90
[2024-12-14] MEDS: heparin 5,000 unit/mL INJ 1 mL 5000 UNIT SUBCUT (18:33)
[2024-12-14 20:38] VITALS: BP 168/93; PULSE 89; RESP 17; TEMP 36.6; O2SAT 93
[2024-12-14] MEDS: midodrine 5 mg TABLET 10 MG PO (20:43)
[2024-12-14 20:46] LABS: Glucose Point of Care 177 mg/dL (70-110)
[2024-12-15 00:14] VITALS: BP 162/80; PULSE 84; RESP 18; TEMP 36.9; O2SAT 94
[2024-12-15 04:26] VITALS: BP 164/78; PULSE 82; RESP 18; TEMP 36.9; O2SAT 94
[2024-12-15] MEDS: sucralfate 1 gm/10 mL Oral Liq UDC PO ×4 (05:20→20:50)
[2024-12-15] MEDS: heparin 5,000 unit/mL INJ 1 mL 5000 UNIT SUBCUT ×2 (05:20→17:46)
[2024-12-15] MEDS: pantoprazole 40 mg SDV IVP (05:25)
[2024-12-15 06:20] LABS: Glucose Point of Care 197 mg/dL (70-110)
[2024-12-15] MEDS: insulin lispro 100 unit/1 mL SUBCUT ×2 (07:33→11:40)
[2024-12-15] MEDS: cefTRIAXone 2,000 mg SDV 2000 MG IVP (07:33)
[2024-12-15 07:39] VITALS: BP 160/81; PULSE 97; RESP 18; TEMP 36.6; O2SAT 91
[2024-12-15 08:16] LABS: Glucose Point of Care 206 mg/dL (70-110)
--- NOTE | 2024-12-15 09:54 | PM.PN ---
Subjective Subjective: no new c/o Medications: Reviewed: Yes Vitals/I&O/Wt Last Vital Signs Temp 97.9 F 12/15/24 07:39 Pulse 97 12/15/24 07:39 Resp 18 12/15/24 07:39 BP 160/81 12/15/24 07:39 Pulse Ox 91 12/15/24 07:39 O2 Del Method Nasal Cannula 12/15/24 07:39 O2 Flow Rate 2 12/11/24 18:15 12/14/24 12/15/24 12/15/24 22:59 06:59 14:59 Intake Total 2250 / 2850 480 / 3330 240 / 240 Output Total 950 / 950 600 / 1550 1000 / 1000 Balance 1300 / 1900 -120 / 1780 -760 / -760 Weight last 48 hrs Weight 97.069 kg Weight 97.5 kg Physical Exam Narrative: awake , alert , no distress PEERLA S12 RRR per report Lungs clear per report Abd - soft , distended no edema Urinary Catheter Management: Hillman: Cath Placed During This Visit: yes Reason for Continuing Indwelling Catheter: Accurate Measurement of Urinary Output in Critically Ill Patients Urinary Catheter Date of Insertion: 12/11/24 Urinary Catheter Time of Insertion: 10:13 Data 12/13/24 22:00 12/14/24 08:55 Micro: Microbiology 12/13/24 13:30 Gram Stain - Final Peritoneal Fluid Anaerobic Culture - Preliminary Body Fluid Culture - Preliminary 12/13/24 13:30 Mycobacterial Smear - Preliminary Body Fluids - Peritoneal 12/11/24 09:56 Urine Culture - Final Urine Catheterized Gram Negative Rods A&P Assessment and plan (1) Acute kidney injury: Plan 1. Acute kidney injury: Baseline creatinine seems to be normal about couple of months ago now has JETT with a creatinine of 4.2, associated with metabolic acidosis. Patient oliguric. Suspect etiology likely from prerenal from poor p.o. intake in the setting of underlying liver cirrhosis. Check urine electrolytes. HRS also possible. - Hold HCTZ, CARMENCITA inhibitor and empagliflozin - s/p IV fluids,and modorine -Cr trending down - awaiting transfer to [place] - No acute indication for HD today 2. Liver cirrhosis: Diuretics on hold, getting IV albumin s/p paracentesis -6.5 L 3. Hyponatremia: Mild in the setting of liver cirrhosis, continue to monitor 4. Metabolic acidosis,improved Patient evaluated using audiovisual cart. Time spent 40 minute PDMP PDMP Reviewed: Not Reviewed Attestations Medical Necessity Statement*: per [facility] Coding Level of Care Code Acute Code for Chg Fwd Diagnoses Acute kidney injury N17.9
--- NOTE | 2024-12-15 10:27 | PC.SOCIAL ---
IMM Updated Updated pt & on IMM. No questions voiced. Provided pt a copy. Initialed, dated, & timed copy in chart.
[2024-12-15 11:00] LABS: Basophils # 0.1 10^3/uL (0.0-0.1); Basophils % 0.2 %; Eosinophils # 0.1 10^3/uL (0.0-0.8); Eosinophils % 0.4 %; Hematocrit 27.3 % (37-53); Lymphocytes # 0.7 10^3/uL (0.8-4.8); Lymphocytes % 3.3 %; Mean Corpuscular HGB Conc 30.4 g/dL (30-55); Mean Corpuscular Hemoglobin 27.7 pg (27-33); Mean Platelet Volume 9.5 fL (7.4-10.4); Monocytes # 1.5 10^3/uL (0.2-0.9); Monocytes % 7.4 %; Neutrophils # 17.39 10^3/uL (1.8-7.7); Neutrophils % 84.5 %; Nucleated Red Blood Cells % 0 %; Platelet Count 414 10^3/cmm (157-399); Red Cell Distribution Width 17.2 % (12.1-15.1); White Blood Count 20.59 10^3/uL (3.29-11.43)
[2024-12-15 11:15] LABS: Anion Gap 16.2 (5-19); Blood Urea Nitrogen 57 mg/dL (8-23); Calcium 8.1 mg/dL (8.5-10.5); Carbon Dioxide 28 mmol/L (22-29); Chloride 99 mmol/L (98-107); Creatinine Clr Calc Pharmacy 41.4413; Glucose 227 mg/dL (65-115); Osmolality Calculated 313 mOsm/kg (285-295); Potassium 3.2 mmol/L (3.5-5.1); Sodium 140 mmol/L (136-145)
--- NOTE | 2024-12-15 11:24 | XR_ITS ---
WS: [id number] Portable AP semiupright chest, Clinical Data: sob, elev wbc Comparison: Portable chest, 12/13/2024 Findings: No nodules, masses or effusions are seen. The heart is normal. The opacity in the left lower lung noted 2 days before his cleared. The pulmonary vascularity is not increased. No pneumonia or pneumothorax is seen. The aortic arch shows mild calcification. XR/XR chest 1V portable [id number] Impression: Atherosclerosis.
[2024-12-15 11:28] LABS: Glucose Point of Care 216 mg/dL (70-110)
--- NOTE | 2024-12-15 11:33 | P.PN_ITS ---
Subjective 2 Subjective: Patient having trouble breathing as his abdomen fills with fluid again. Vitals/I&O/Wt Last Vital Signs Temp 97.9 F 12/15/24 07:39 Pulse 97 12/15/24 07:39 Resp 18 12/15/24 07:39 BP 160/81 12/15/24 07:39 Pulse Ox 91 12/15/24 07:39 O2 Del Method Nasal Cannula 12/15/24 07:39 O2 Flow Rate 2 12/11/24 18:15 12/14/24 12/15/24 12/15/24 22:59 06:59 14:59 Intake Total 2250 / 2850 480 / 3330 240 / 240 Output Total 950 / 950 600 / 1550 1000 / 1000 Balance 1300 / 1900 -120 / 1780 -760 / -760 Weight last 48 hrs Weight 97.069 kg Weight 97.5 kg Physical Exam 2 Narrative: Alert and oriented no acute distress, breathing easier Heart regular normal S1-S2 without murmurs clicks gallops or rubs Lungs clear to auscultation Abdomen remains protuberant but no tension. The 3 incisions are now with medication and covered Extremities no clubbing cyanosis or edema Urinary Catheter Management: Hillman: Cath Placed During This Visit: yes Reason for Continuing Indwelling Catheter: Accurate Measurement of Urinary Output in Critically Ill Patients Urinary Catheter Date of Insertion: 12/11/24 Urinary Catheter Time of Insertion: 10:13 Data 12/15/24 10:45 12/15/24 10:45 Micro: Microbiology 12/13/24 13:30 Gram Stain - Final Peritoneal Fluid Anaerobic Culture - Preliminary Body Fluid Culture - Preliminary 12/13/24 13:30 Mycobacterial Smear - Preliminary Body Fluids - Peritoneal 12/11/24 09:56 Urine Culture - Final Urine Catheterized Gram Negative Rods A&P Assessment and plan (1) Acute renal failure: Nephrology following appreciate input (2) RIVERA (nonalcoholic steatohepatitis): (3) Cirrhosis: (4) Acute kidney injury: As above (5) Malignant neoplasm of prostate: (6) Generalized weakness: Out of bed to chair (7) Dehydration: (8) Hepatorenal syndrome: (9) Hypotension: On midodrine (10) Leukocytosis: Resolving Plan #SBP - ceftriaxone 2 gm daily for 5 days (today is day 2) and then prophylaxis of cipro once daily. albumin 25 gm daily 9was on bid per nephrology) decreased back to once daily per uptodate recommendations #Hypotension initially. was on midodrine. d/c minodrine start lasix and spironolactone 40/100 dosing for cirrhotic ascites. - Off home antihypertensives including Norvasc atenolol carvedilol hydrochlorothiazide and losartan #JETT, marked improvement today. d/c bicarb drip as now alkosis. - Likely hepatorenal syndrome and related to SBP #Abdominal ascites, complaints of shortness of breath, anxiety - Paracentesis 12/13/24 - 6.5 L. reaccummulating today #History of liver cirrhosis, esophageal varices status post banding x 2 #History of prostate cancer in remission -Status post chemoradiation therapy #Chronic anemia hemoglobin 8.3, today stable since 12/12/2024. -status post 1 unit PRBC # Type 2 diabetes mellitus, was on metformin at home this has been discontinued and he has been placed on low-dose sliding scale add low dose lantus tonight for BS > 200 # Acute hypoxic respiratory failure, with anasarca - Secondary fluid overload; o2 prn Plan for today: K replacement glenna check cxr/ua for elevated wbc lasix/aldactone for ascites lantus stop bicarb stop ppi stop midodrine for now will discuss transfer to liver specialist with pt and today Full code DVT prophylaxis: Heparin SQ twice daily, hold given anemia PDMP PDMP Reviewed: Not Reviewed Attestations 2 Medical Necessity Statement*: Patient requires hospitalization for concerns for spontaneous bacterial peritonitis, acute renal failure, acute anemia Coding Level of Care Code Acute Code for [facility] Fwd Diagnoses Acute renal failure N17.9 RIVERA (nonalcoholic steatohepatitis) K75.81 Cirrhosis K74.60 Acute kidney injury N17.9 Malignant neoplasm of prostate C61 Generalized weakness R53.1 Dehydration E86.0 Hepatorenal syndrome K76.7 Hypotension I95.9 Leukocytosis D72.829
[2024-12-15 11:35] VITALS: BP 158/76; PULSE 85; RESP 17; TEMP 36.7; O2SAT 92
[2024-12-15] MEDS: spironolactone 25 mg Tablet 100 MG PO (11:39)
[2024-12-15] MEDS: FUROsemide 40 mg Tablet PO (11:39)
--- NOTE | 2024-12-15 15:38 | P.MISC_ITS ---
Miscellaneous Note Purpose of Documentation: Discussed with interlocking installer at [facility] regarding transfer. Note: * Patient has been accepted by Dr. Jose a interlocking installer at [facility] * The transfer office will call every shift for updates and patient will be excepted to a general medical bed either on the hepatology team or hospitalist team * Advice from interlocking installer is hold diuretics ; they were already given today * Wait for renal function to improve. He stated a goal creatinine of 1.4 in order to restart diuretics. Although we know restarting diuretics will worsen renal function again * When restarting diuretics he recommends lower doses such as Lasix 20 mg once a day and spironolactone 25 once a day * Schedule albumin 25 g every 6 hours * Continue ceftriaxone for SBP * Large-volume paracentesis as needed * Please note likely transfer window of 7 to 14 days based on severity of illness
--- NOTE | 2024-12-15 15:38 | PM.MISC ---
Miscellaneous Note Purpose of Documentation: Discussed with human resources services specialist at [facility] regarding transfer. Note: Patient has been accepted by Dr. Jose a human resources services specialist at [facility] The transfer office will call every shift for updates and patient will be excepted to a general medical bed either on the hepatology team or hospitalist team Advice from human resources services specialist is hold diuretics ; they were already given today Wait for renal function to improve. He stated a goal creatinine of 1.4 in order to restart diuretics. Although we know restarting diuretics will worsen renal function again When restarting diuretics he recommends lower doses such as Lasix 20 mg once a day and spironolactone 25 once a day Schedule albumin 25 g every 6 hours Continue ceftriaxone for SBP Large-volume paracentesis as needed Please note likely transfer window of 7 to 14 days based on severity of illness
[2024-12-15 16:00] VITALS: BP 141/71; PULSE 86; RESP 17; TEMP 36.3; O2SAT 95
[2024-12-15 16:39] LABS: Bilirubin Urine Negative (Negative); Blood Urine 3+ (Negative); Glucose Urine UA 1+ (Normal); Ketones Urine Negative (Negative); Leukocyte Esterase Urine Trace (Negative); Nitrate Urine Negative (Negative); Protein Urine 2+ (Negative); Specific Gravity, Urine 1.017 (1.005-1.030); Urine Appearance Cloudy (CLEAR); Urobilinogen Urine 0.2 mg/dL (Negative); pH Urine 5.5 (5-7)
[2024-12-15 16:46] LABS: Add Urine Microscopic? YES; Bacteria Urine Trace /hpf; Hyaline Casts Urine 27.28 /lpf; RBC Urine >100 /hpf (0-2)
[2024-12-15 16:47] LABS: Glucose Point of Care 203 mg/dL (70-110)
[2024-12-15 17:35] LABS: Add Urine Culture? Yes; Fine Granular Casts Urine 15-25 /lpf; UA Slide Review UA Slide Review Perf; Urine Color Orange (Yellow)
[2024-12-15] MEDS: potassium chloride ER 20 mEq Tablet PO (17:46)
[2024-12-15] MEDS: mupirocin oint 22 gm 1 APPLIC TOPICAL ×2 (17:51→21:01)
[2024-12-15 20:00] VITALS: BP 162/74; PULSE 84; RESP 17; TEMP 36.7; O2SAT 95
[2024-12-15 20:47] LABS: Glucose Point of Care 256 mg/dL (70-110)
[2024-12-15] MEDS: insulin glargine 100 units/1 mL 10 UNIT SUBCUT (20:50)
[2024-12-16] VITALS: BP 149/78; PULSE 81; RESP 17; TEMP 36.7; O2SAT 95
[2024-12-16 04:00] VITALS: BP 162/74; PULSE 87; RESP 17; TEMP 37.1; O2SAT 94
[2024-12-16] MEDS: sucralfate 1 gm/10 mL Oral Liq UDC PO ×4 (05:39→20:33)
[2024-12-16] MEDS: heparin 5,000 unit/mL INJ 1 mL 5000 UNIT SUBCUT ×2 (05:39→17:46)
[2024-12-16 05:48] LABS: Basophils % 0.1 %; Eosinophils # 0.1 10^3/uL (0.0-0.8); Eosinophils % 0.8 %; Lymphocytes # 0.7 10^3/uL (0.8-4.8); Lymphocytes % 4.7 %; Mean Corpuscular HGB Conc 31.3 g/dL (30-55); Mean Corpuscular Hemoglobin 28.2 pg (27-33); Mean Corpuscular Volume 90.2 fl (82-101); Mean Platelet Volume 9.7 fL (7.4-10.4); Monocytes # 1.1 10^3/uL (0.2-0.9); Monocytes % 7.1 %; Neutrophils # 13.13 10^3/uL (1.8-7.7); Neutrophils % 84.8 %; Nucleated Red Blood Cells % 0 %; Platelet Count 307 10^3/cmm (157-399); Red Blood Count 2.55 10^6/uL (3.85-5.65); White Blood Count 15.48 10^3/uL (3.29-11.43)
[2024-12-16 06:14] LABS: Anion Gap 17.5 (5-19); Blood Urea Nitrogen 50 mg/dL (8-23); Calcium 8.1 mg/dL (8.5-10.5); Carbon Dioxide 29 mmol/L (22-29); Chloride 100 mmol/L (98-107); Creatinine Clr Calc Pharmacy 46.6215; Glucose 162 mg/dL (65-115); Osmolality Calculated 313 mOsm/kg (285-295); Potassium 3.5 mmol/L (3.5-5.1); Sodium 143 mmol/L (136-145)
[2024-12-16 06:18] LABS: Glucose Point of Care 168 mg/dL (70-110)
[2024-12-16 07:49] LABS: Osmolality Serum 307 mOsm/kg (278-305)
[2024-12-16 07:55] VITALS: BP 156/73; PULSE 85; RESP 15; TEMP 36.7; O2SAT 92
--- NOTE | 2024-12-16 09:00 | P.PN_ITS ---
Subjective 2 Subjective: no new c/o Medications: Reviewed: Yes Vitals/I&O/Wt Last Vital Signs Temp 98.0 F 12/16/24 07:55 Pulse 85 12/16/24 07:55 Resp 15 12/16/24 07:55 BP 156/73 12/16/24 07:55 Pulse Ox 92 12/16/24 07:55 O2 Del Method Nasal Cannula 12/16/24 07:55 O2 Flow Rate 2 12/16/24 04:00 12/15/24 12/16/24 12/16/24 22:59 06:59 14:59 Intake Total 100 / 1848.404 200 / 2048.404 Output Total 200 / 1650 400 / 2050 Balance -100 / 198.404 -200 / -1.596 Weight last 48 hrs Weight 97.069 kg Weight 97.069 kg Physical Exam 2 Narrative: awake , alert , no distress PEERLA S12 RRR per report Lungs clear per report Abd - soft , distended no edema Urinary Catheter Management: Hillman: Cath Placed During This Visit: yes Reason for Continuing Indwelling Catheter: Accurate Measurement of Urinary Output in Critically Ill Patients Urinary Catheter Date of Insertion: 12/11/24 Urinary Catheter Time of Insertion: 10:13 Data 12/17/24 04:26 12/17/24 04:26 Micro: Microbiology 12/13/24 13:30 Gram Stain - Final Peritoneal Fluid Anaerobic Culture - Preliminary Body Fluid Culture - Preliminary A&P Assessment and plan (1) Acute kidney injury: Plan 1. Acute kidney injury: Baseline creatinine seems to be normal about couple of months ago now has JETT with a creatinine of 4.2, associated with metabolic acidosis. . Suspect etiology likely from prerenal from poor p.o. intake in the setting of underlying liver cirrhosis. Check urine electrolytes. HRS also possible. - Holding HCTZ, CARMENCITA inhibitor and empagliflozin - s/p IV fluids,and midodrine -Cr trending down - awaiting transfer to [place] 2. Liver cirrhosis: Diuretics on hold, getting IV albumin s/p paracentesis -6.5 L 3. Hyponatremia: Mild in the setting of liver cirrhosis, continue to monitor 4. Metabolic acidosis,improved Patient evaluated using audiovisual cart. Time spent 40 minute PDMP PDMP Reviewed: Not Reviewed Attestations 2 Medical Necessity Statement*: per medicine Coding Level of Care Code Acute Code for [facility] Fwd Diagnoses Acute kidney injury N17.9
[2024-12-16] MEDS: cefTRIAXone 2,000 mg SDV 2000 MG IVP (09:04)
[2024-12-16] MEDS: potassium chloride ER 20 mEq Tablet PO ×2 (09:05→17:47)
[2024-12-16] MEDS: insulin lispro 100 unit/1 mL SUBCUT ×3 (09:05→17:46)
[2024-12-16] MEDS: mupirocin oint 22 gm 1 APPLIC TOPICAL ×2 (09:48→17:58)
[2024-12-16 11:51] VITALS: BP 155/69; PULSE 81; RESP 15; TEMP 36.8; O2SAT 94
--- NOTE | 2024-12-16 11:57 | PM.PN ---
Subjective Subjective: States his breathing is little bit easier today note he did get his dose of diuretics yesterday so I wonder if it is because he was -0.5 L yesterday after receiving the diuretics. And his creatinine still improved on the diuretics. Vitals/I&O/Wt Last Vital Signs Temp 98.2 F 12/16/24 11:51 Pulse 81 12/16/24 11:51 Resp 15 12/16/24 11:51 BP 155/69 12/16/24 11:51 Pulse Ox 94 12/16/24 11:51 O2 Del Method Nasal Cannula 12/16/24 11:51 O2 Flow Rate 2 12/16/24 04:00 12/15/24 12/16/24 12/16/24 22:59 06:59 14:59 Intake Total 100 / 1848.404 200 / 2048.404 480 / 480 Output Total 200 / 1650 400 / 2050 Balance -100 / 198.404 -200 / -1.596 480 / 480 Weight last 48 hrs Weight 97.069 kg Weight 97.069 kg Physical Exam Narrative: Alert and oriented no acute distress, breathing easier Heart regular normal S1-S2 without murmurs clicks gallops or rubs Lungs clear to auscultation Abdomen remains protuberant distention is about moderate.. The 3 incisions are now with medication and covered Extremities no clubbing cyanosis or edema Urinary Catheter Management: Hillman: Cath Placed During This Visit: yes Reason for Continuing Indwelling Catheter: Accurate Measurement of Urinary Output in Critically Ill Patients Urinary Catheter Date of Insertion: 12/11/24 Urinary Catheter Time of Insertion: 10:13 Data 12/16/24 04:35 12/16/24 04:35 Micro: Microbiology 12/15/24 15:49 Urine Culture - Preliminary Urine,Clean Catch 12/13/24 13:30 Gram Stain - Final Peritoneal Fluid Anaerobic Culture - Preliminary Body Fluid Culture - Preliminary A&P Assessment and plan (1) Acute renal failure: Likely from hepatorenal syndrome marked improvement today. Maximum serum creatinine was 4.2 on admission has been slowly decreasing. It took a large jump on 12/15-1.8 and today it is 1.6. Note the 1.6 is after receiving diuretic therapy yesterday at a the recommended cirrhotic dosing of Lasix 40 mg daily and spironolactone 100 mg daily Appreciate assistance of nephrology. (2) RIVERA (nonalcoholic steatohepatitis): Recommend evaluation for liver transplant He has multiple complications of cirrhosis including esophageal varices and now recurrent ascites (3) Cirrhosis: Decompensated cirrhosis with recalcitrant ascites (4) Malignant neoplasm of prostate: (5) Generalized weakness: Out of bed to chair; PT OT. Ambulate in room and eventually hallway (6) Dehydration: (7) Hepatorenal syndrome: Marked improvement after paracentesis on 12/13/2024. Renal function is improving (8) Hypotension: Was on midodrine now blood pressure is elevated. (9) Leukocytosis: Resolving Plan #SBP - ceftriaxone 2 gm daily for 5 days (today is day 3) and then prophylaxis of cipro once daily. albumin 25 gm now every 6 hours. Per hepatology recommendation at [place]. History of hypertension. Was hypotensive on admission and on midodrine this is now been discontinued please note he is home antihypertensives including Norvasc atenolol carvedilol hydrochlorothiazide and losartan #Abdominal ascites, complaints of shortness of breath, anxiety - Paracentesis 12/13/24 - 6.5 L. As per Hepatology recommendations will perform once a week paracentesis. Will schedule for tomorrow in the hospital. Since bed availability at [place] [facility] is unlikely in the immediate future will plan outpatient paracentesis once to twice a week as needed. Will start Lasix and spironolactone as recommended by truss maker with a goal of Lasix 40 and spironolactone 100. #History of liver cirrhosis, secondary to steatosis. Referral to [place] [facility] for possible liver transplant #History of prostate cancer in remission -Status post chemoradiation therapy #Chronic anemia hemoglobin running between 7 and 8.5 but stable -Patient received 1 unit PRBC during this hospitalization # Type 2 diabetes mellitus, was on metformin at home this has been discontinued and he has been placed on low-dose sliding scale and low-dose Lantus was added yesterday for BS > 200 # Acute hypoxic respiratory failure, with anasarca - Secondary fluid overload; o2 prn Leukocytosis from yesterday chest x-ray negativeAwait culture Plan for today: Schedule paracentesis for tomorrow Increase mobility Lasix 20 mg and spironolactone 25 mg today with hope of increasing to a max dose of Lasix 40 and spironolactone 100 daily Will need to schedule outpatient paracentesis weekly Discharge planning for [facility] facility for discharge tomorrow Await urine culture. WBC count is less than yesterday Full code DVT prophylaxis: Heparin 5000 every 12 PDMP PDMP Reviewed: Not Reviewed Attestations Medical Necessity Statement*: Patient requires hospitalization for concerns for spontaneous bacterial peritonitis, acute renal failure, acute anemia Coding Level of Care Code Acute Code for [facility] Fwd Diagnoses Acute renal failure, unspecified acute renal failure type N17.9 Acute renal failure type: unspecified RIVERA (nonalcoholic steatohepatitis) K75.81 Other cirrhosis of liver K74.69 Hepatic cirrhosis type: other cirrhosis Malignant neoplasm of prostate C61 Generalized weakness R53.1 Dehydration E86.0 Hepatorenal syndrome K76.7 Other specified hypotension I95.89 Hypotension type: other hypotension type Leukemoid reaction D72.823 Leukocytosis type: leukemoid reaction
[2024-12-16 11:59] LABS: Glucose Point of Care 220 mg/dL (70-110)
[2024-12-16] MEDS: spironolactone 25 mg Tablet PO (13:05)
[2024-12-16] MEDS: FUROsemide 20 mg Tablet PO (13:05)
[2024-12-16 16:00] VITALS: BP 184/92; PULSE 103; RESP 14; TEMP 36.8; O2SAT 92
[2024-12-16 16:33] LABS: Glucose Point of Care 214 mg/dL (70-110)
[2024-12-16 20:00] VITALS: BP 186/68; PULSE 99; RESP 18; TEMP 36.4; O2SAT 91
--- NOTE | 2024-12-16 20:22 | PC.NURSE ---
during assessment pt yanez noted to be knotted, yanez rearranged to correct position, sanguineous drainage drained into tubing, pt denied having bloody urine before now, inspection of yanez appears yanez was pulled, balloon deflated and and re-inflated with pt deniying pressure while inflating balloon. yanez flushed with difficulty. pt denied pain during this. after cleansing yanez, it was deflated again and pushed in more and more bloody drainage flowed, pt this time verbalized that feels much better . balloon re-inflated and secured with new secure guard.
[2024-12-16] MEDS: insulin glargine 100 units/1 mL 10 UNIT SUBCUT (20:33)
[2024-12-16 20:38] LABS: Glucose Point of Care 193 mg/dL (70-110)
[2024-12-17] VITALS (12 sets, daily range): BP systolic 155–177; BP diastolic 70–88; PULSE 83–102; RESP 15–18; TEMP 36.4–36.9; O2SAT 90–98
--- NOTE | 2024-12-17 01:46 | PC.NURSE ---
Dr. Kearney notified of pt BP, he stated he will look at pt chart and will write order in, also notified of urine remains bloody and nurse explained about yanez being knotted at the start of shift and actions taken after. Nurse was advised to continue to monitor pt urine and if clots are noticed to give him a call
[2024-12-17] MEDS: FUROsemide 10 mg/mL SDV 2mL 20 MG IVP (02:17)
[2024-12-17] MEDS: potassium chloride ER 20 mEq Tablet 40 MEQ PO (02:18)
[2024-12-17] MEDS: carvedilol 6.25 mg Tablet PO ×3 (02:18→18:38)
[2024-12-17] MEDS: hyDRALAzine 20 mg/mL INJ 1 mL IVP (04:44)
[2024-12-17 04:59] LABS: Basophils % 0.1 %; Eosinophils # 0.2 10^3/uL (0.0-0.8); Hematocrit 23.1 % (37-53); Lymphocytes # 0.6 10^3/uL (0.8-4.8); Lymphocytes % 3.9 %; Mean Corpuscular HGB Conc 30.3 g/dL (30-55); Mean Corpuscular Hemoglobin 27.9 pg (27-33); Mean Platelet Volume 9.8 fL (7.4-10.4); Monocytes # 0.9 10^3/uL (0.2-0.9); Monocytes % 5.7 %; Neutrophils # 14.04 10^3/uL (1.8-7.7); Neutrophils % 86.5 %; Nucleated Red Blood Cells % 0 %; Platelet Count 262 10^3/cmm (157-399); Red Blood Count 2.51 10^6/uL (3.85-5.65); Red Cell Distribution Width 16.8 % (12.1-15.1); White Blood Count 16.26 10^3/uL (3.29-11.43)
[2024-12-17 05:24] LABS: Anion Gap 17.9 (5-19); Blood Urea Nitrogen 43 mg/dL (8-23); Calcium 8.9 mg/dL (8.5-10.5); Carbon Dioxide 27 mmol/L (22-29); Chloride 100 mmol/L (98-107); Creatinine Clr Calc Pharmacy 49.7296; Glucose 163 mg/dL (65-115); Osmolality Calculated 306 mOsm/kg (285-295); Potassium 3.9 mmol/L (3.5-5.1); Sodium 141 mmol/L (136-145)
[2024-12-17 06:20] LABS: Glucose Point of Care 175 mg/dL (70-110)
[2024-12-17] MEDS: spironolactone 25 mg Tablet 50 MG PO (10:02)
[2024-12-17] MEDS: FUROsemide 20 mg Tablet 40 MG PO (10:03)
[2024-12-17] MEDS: potassium chloride ER 20 mEq Tablet PO ×2 (10:03→18:38)
[2024-12-17] MEDS: insulin lispro 100 unit/1 mL SUBCUT ×2 (10:03→18:37)
[2024-12-17] MEDS: cefTRIAXone 2,000 mg SDV 2000 MG IVP (10:04)
[2024-12-17] MEDS: mupirocin oint 22 gm 1 APPLIC TOPICAL ×2 (10:04→18:40)
--- NOTE | 2024-12-17 10:17 | PC.SOCIAL ---
IMM Updated Updated pt & on IMM. No questions voiced. Provided pt a copy. Initialed, dated, & timed copy in chart.
--- NOTE | 2024-12-17 10:38 | US_ITS ---
WS: [id number] ULTRASOUND-GUIDED PARACENTESIS CLINICAL INFORMATION: ascites reacummuation schedule for friday COMPARISON: None. Procedure Informed consent: The risks, benefits, and alternatives of the procedure were discussed with the patient. Verbal and written consent was obtained. Timeout: A timeout was performed to confirm the correct patient, procedure, and site. Preparation: A suitable skin site was identified. The patient was prepped and draped in usual sterile fashion. Lidocaine 1% was used for local anesthesia. Catheter: 4 Lao One-step uTrack TVeh catheter. Side: LEFT lower quadrant. Fluid Volume: 4250 ml Color: Clear yellow DISPOSITION: Discarded safely. Complications: None. US/US paracentesis abd w [id number] IMPRESSION: Uncomplicated ultrasound-guided paracentesis. Removal of 4250 cc
[2024-12-17 11:27] LABS: Glucose Point of Care 166 mg/dL (70-110)
--- NOTE | 2024-12-17 12:07 | P.PN_ITS ---
Subjective 2 Subjective: Seen this morning. Patient has been having hematuria after Hillman was readjusted. There was a suspicion that Hillman might of gotten pulled as patient was changing position. at bedside. Answered all the questions she had regarding patient's current medical condition and discussed management going forward. Creatinine improving to 1.5 today. Hemoglobin 7 at 430 this morning. Vitals/I&O/Wt Last Vital Signs Temp 97.5 F L 12/17/24 11:57 Pulse 91 12/17/24 11:57 Resp 16 12/17/24 11:57 BP 164/76 12/17/24 11:57 Pulse Ox 94 12/17/24 11:57 O2 Del Method Nasal Cannula 12/17/24 11:57 O2 Flow Rate 2 12/16/24 04:00 12/16/24 12/17/24 12/17/24 22:59 06:59 14:59 Intake Total 580 / 1640 200 / 1840 Output Total 650 / 650 650 / 1300 Balance -70 / 990 -450 / 540 Weight last 48 hrs Weight 96.162 kg Weight 97.069 kg Physical Exam 2 Narrative: General: Alert oriented x3, sitting up in recliner with at bedside. HEENT: Normocephalic, atraumatic, EOMI, no acute respiratory distress breathing comfortably no conversational dyspnea. Cardio: Regular rate rhythm, normal S1-S2, Respiratory: Clear to auscultation bilaterally no wheezes no rhonchi GI: Abdomen soft, mildly distended, no guarding, nontender Behavior: Appropriate and cooperative Extremities: No edema bilateral lower extremities Urinary Catheter Management: Hillman: Cath Placed During This Visit: yes Reason for Continuing Indwelling Catheter: Acute Urinary Retention or Obstruction Urinary Catheter Date of Insertion: 12/11/24 Urinary Catheter Time of Insertion: 10:13 Data 12/17/24 04:26 12/17/24 04:26 Micro: Microbiology 12/13/24 13:30 Gram Stain - Final Peritoneal Fluid Anaerobic Culture - Preliminary Body Fluid Culture - Preliminary Gram Negative Rods 12/11/24 18:19 Blood Culture - Final Blood NO GROWTH AFTER 5 DAYS 12/11/24 18:17 Blood Culture - Final Blood NO GROWTH AFTER 5 DAYS 12/15/24 15:49 Urine Culture - Preliminary Urine,Clean Catch A&P Assessment and plan (1) Acute renal failure: Likely from hepatorenal syndrome marked improvement today. Maximum serum creatinine was 4.2 on admission has been slowly decreasing. It took a large jump on 12/15-1.8 and today it is 1.6. Note the 1.6 is after receiving diuretic therapy yesterday at a the recommended cirrhotic dosing of Lasix 40 mg daily and spironolactone 100 mg daily Appreciate assistance of nephrology. (2) RIVERA (nonalcoholic steatohepatitis): Recommend evaluation for liver transplant He has multiple complications of cirrhosis including esophageal varices and now recurrent ascites (3) Cirrhosis: Decompensated cirrhosis with recalcitrant ascites (4) Malignant neoplasm of prostate: (5) Generalized weakness: Out of bed to chair; PT OT. Ambulate in room and eventually hallway (6) Dehydration: (7) Hepatorenal syndrome: Marked improvement after paracentesis on 12/13/2024. Renal function is improving (8) Hypotension: Was on midodrine now blood pressure is elevated. (9) Leukocytosis: Resolving Plan #SBP - ceftriaxone 2 gm daily for 5 days (today is day 3) and then prophylaxis of cipro once daily. albumin 25 gm now every 6 hours. Per hepatology recommendation at [place]. History of hypertension. Was hypotensive on admission and on midodrine this is now been discontinued please note he is home antihypertensives including Norvasc atenolol carvedilol hydrochlorothiazide and losartan #Abdominal ascites, complaints of shortness of breath, anxiety - Paracentesis 12/13/24 - 6.5 L. As per Hepatology recommendations will perform once a week paracentesis. Will schedule for tomorrow in the hospital. Since bed availability at [place] is unlikely in the immediate future will plan outpatient paracentesis once to twice a week as needed. Will start Lasix and spironolactone as recommended by dental secretary with a goal of Lasix 40 and spironolactone 100. #History of liver cirrhosis, secondary to steatosis. Referral to [place] for possible liver transplant #History of prostate cancer in remission -Status post chemoradiation therapy #Chronic anemia hemoglobin running between 7 and 8.5 but stable -Patient received 1 unit PRBC during this hospitalization # Type 2 diabetes mellitus, was on metformin at home this has been discontinued and he has been placed on low-dose sliding scale and low-dose Lantus was added yesterday for BS > 200 # Acute hypoxic respiratory failure, with anasarca - Secondary fluid overload; o2 prn Leukocytosis from yesterday chest x-ray negativeAwait culture Plan for today: Schedule paracentesis for tomorrow Increase mobility Lasix 20 mg and spironolactone 25 mg today with hope of increasing to a max dose of Lasix 40 and spironolactone 100 daily Will need to schedule outpatient paracentesis weekly [facility] for [facility] tomorrow Await urine culture. WBC count is less than yesterday Full code DVT prophylaxis: Heparin 5000 every 12 12/17/2024 Plan for paracentesis today. Continue albumin every 6 hours Increase Lasix to 40 oral daily, spironolactone 50 daily Heparin subcu has been held secondary to hematuria. Discussed with nursing staff to start continuous bladder irrigation Will continue to monitor hematuria. If this is does not resolve with bladder irrigation may consider transfer for urology evaluation. White count 16,000 improved compared to prior. Continue ceftriaxone 2 g IV daily Order 1 unit packed RBC. Hemoglobin 7.0 this morning and secondary to continued hematuria will order a unit of blood. Patient most likely had hepatorenal syndrome which is improving Still awaiting transfer to [place]. Discussed with family if no bed available by time of discharge we will consider discharging to [facility] to follow-up as an outpatient. and patient agreeable. Patient will need to follow-up with hepatology. Check CBC at 6 PM. PDMP PDMP Reviewed: Not Reviewed Attestations 2 Medical Necessity Statement*: Patient requires hospitalization for concerns for spontaneous bacterial peritonitis, acute renal failure, acute anemia Diagnoses Acute renal failure, unspecified acute renal failure type N17.9 Acute renal failure type: unspecified RIVERA (nonalcoholic steatohepatitis) K75.81 Other cirrhosis of liver K74.69 Hepatic cirrhosis type: other cirrhosis Malignant neoplasm of prostate C61 Generalized weakness R53.1 Dehydration E86.0 Hepatorenal syndrome K76.7 Other specified hypotension I95.89 Hypotension type: other hypotension type Leukemoid reaction D72.823 Leukocytosis type: leukemoid reaction
--- NOTE | 2024-12-17 15:34 | XRR_ITS ---
PROCEDURE INFORMATION: Exam: XR Chest Exam date and time: 12/17/2024 4:40 PM Age: 74 years old Clinical indication: Condition or disease; Post paracentesis 12/17/24; Additional info: Post para TECHNIQUE: Imaging protocol: Radiologic exam of the chest. Views: 1 view. COMPARISON: CR XR chest 1V portable [id number] 12/15/2024 12:11 PM FINDINGS: Lungs: Left basilar atelectasis. There is no evidence of focal pulmonary consolidation. Pleural spaces: Unremarkable. No pleural effusion. No pneumothorax. Heart/Mediastinum: Unremarkable. No cardiomegaly. Bones/joints: Mild degenerative disease of bilateral acromioclavicular joints. The thoracic spine demonstrates mild degenerative changes at multiple levels. XR/XR chest 1V portable [id number] IMPRESSION: No acute cardiopulmonary process.
--- NOTE | 2024-12-17 16:20 | P.PN_ITS ---
Subjective 2 Subjective: had hematuria Medications: Reviewed: Yes Vitals/I&O/Wt Last Vital Signs Temp 97.8 F 12/17/24 16:00 Pulse 83 12/17/24 16:00 Resp 15 12/17/24 16:00 BP 161/83 12/17/24 16:00 Pulse Ox 97 12/17/24 16:00 O2 Del Method Nasal Cannula 12/17/24 16:00 O2 Flow Rate 2 12/16/24 04:00 12/17/24 12/17/24 12/17/24 06:59 14:59 22:59 Intake Total 200 / 1840 0 / 0 Output Total 650 / 1300 Balance -450 / 540 0 / 0 Weight last 48 hrs Weight 96.162 kg Weight 97.069 kg Physical Exam 2 Narrative: awake , alert , no distress PEERLA S12 RRR per report Lungs clear per report Abd - soft , distended no edema Urinary Catheter Management: Hillman: Cath Placed During This Visit: yes Reason for Continuing Indwelling Catheter: Acute Urinary Retention or Obstruction Urinary Catheter Date of Insertion: 12/11/24 Urinary Catheter Time of Insertion: 10:13 Data 12/17/24 19:34 12/17/24 04:26 Micro: Microbiology 12/13/24 13:30 Gram Stain - Final Peritoneal Fluid Anaerobic Culture - Preliminary Body Fluid Culture - Preliminary Gram Negative Rods 12/11/24 18:19 Blood Culture - Final Blood NO GROWTH AFTER 5 DAYS 12/11/24 18:17 Blood Culture - Final Blood NO GROWTH AFTER 5 DAYS A&P Assessment and plan (1) Acute kidney injury: Plan 1. Acute kidney injury: Baseline creatinine seems to be normal about couple of months ago now has JETT with a creatinine of 4.2, associated with metabolic acidosis. . Suspect etiology likely from prerenal from poor p.o. intake in the setting of underlying liver cirrhosis. Check urine electrolytes. HRS also possible. - Holding HCTZ, CARMENCITA inhibitor and empagliflozin - s/p IV fluids,and midodrine -Cr trending down , Diuretic resumed -Lasix 20 mg/Aldactone 50 mg - awaiting transfer to [place] 2. Liver cirrhosis: Diuretics on hold, getting IV albumin s/p paracentesis -6.5 L , hepatology recommended weekly paracentesis 3. Hyponatremia: Mild in the setting of liver cirrhosis, continue to monitor 4. Metabolic acidosis,improved Patient evaluated using audiovisual cart. Time spent 40 minute PDMP PDMP Reviewed: Not Reviewed Attestations 2 Medical Necessity Statement*: per main campus medical center Coding Level of Care Code Acute Code for Chg Fwd Diagnoses Acute kidney injury N17.9
--- NOTE | 2024-12-17 16:49 | PC.NURSE ---
removed 4.25 liters via thora
[2024-12-17] MEDS: sucralfate 1 gm/10 mL Oral Liq UDC PO ×2 (18:37→21:21)
--- NOTE | 2024-12-17 19:40 | PC.NURSE ---
Transfer Bed This nurse received call from Jorge Barrett RN at [facility] transfer center 12/17/24 at 1935 regarding patient transfer. Bed #3169-1 on [address] at [facility] given to this nurse. This nurse spoke with patient care nurse, Fatou SANDOVAL, regarding patient's hematura. Patient hematuria was improved but patient did have slight increase in hematuria with small clot after ambulating to [facility]. This nurse observed yanez catheter to be draining red urine with small clot present. This nurse spoke with Dr. Huston regarding patient's current hematuria and that this nurse had received a bed number for [facility]. Dr. Huston voices to continue with patient transfer as patient is having some increased hematuria with clot from prior. This nurse called and spoke with [facility] to confirm patient transfer. Report to be called by patient care nurse.
[2024-12-17 19:49] LABS: Basophils % 0.1 %; Eosinophils # 0.1 10^3/uL (0.0-0.8); Eosinophils % 0.5 %; Hematocrit 29.5 % (37-53); Lymphocytes # 0.7 10^3/uL (0.8-4.8); Lymphocytes % 3.4 %; Mean Corpuscular HGB Conc 31.5 g/dL (30-55); Mean Corpuscular Hemoglobin 28.1 pg (27-33); Mean Corpuscular Volume 89.1 fl (82-101); Mean Platelet Volume 11.3 fL (7.4-10.4); Monocytes # 0.8 10^3/uL (0.2-0.9); Monocytes % 4.1 %; Neutrophils # 16.89 10^3/uL (1.8-7.7); Nucleated Red Blood Cells % 0 %; Platelet Count 281 10^3/cmm (157-399); Red Blood Count 3.31 10^6/uL (3.85-5.65); Red Cell Distribution Width 17.8 % (12.1-15.1); White Blood Count 18.99 10^3/uL (3.29-11.43)
[2024-12-17 20:26] LABS: Glucose Point of Care 298 mg/dL (70-110)
[2024-12-17 20:26] LABS: Glucose Point of Care 180 mg/dL (70-110)
[2024-12-17 20:50] LABS: Amylase, Peritoneal Fluid 23 U/L
--- NOTE | 2024-12-17 21:00 | PM.TDS ---
Transfer Summary Providers Date of Admission: 12/11/24 12:27 Date of Discharge/Transfer: 12/21/24 Attending Provider at Admission: Adela Huston MD Attending Provider at Transfer: Adela Huston MD Primary Care Provider: Maribel Dalton MD Transfer Plans: Anticipated date of transfer: 12/21/24. Receiving Facility: [facility]. Receiving Provider: dr feliciano. Diagnoses at Discharge Discharge Diagnosis (1) Acute kidney injury: Status: Acute Reason for Visit Reason for Visit Low BS Low BP Hospital Course Hospital Course Patient was admitted for acute renal failure likely from better renal failure also had evidence of SBP for which she was treated with IV ceftriaxone. He underwent paracentesis x 2 and will be needing weekly paracentesis going forward. He was awaiting to transfer to [place] however there has been no bed available. Tentative plan is to discharge patient to senior living facility and have him follow-up with hepatology as an outpatient. He has been doing much better and blood pressures improved. Patient close to discharge home however now has developed hematuria possibly secondary to traumatic Hillman insertion. We have attempted CBI however patient is in a lot of pain and does not want us to switch his Hillman to a three-way Hillman to conduct the CBI. Every time the Hillman is flushed there is blood return. We do not have urology services available at our hospital at this time. Discussed case with [facility] with general see separate this patient for further urological workup. Patient is to be discharged on 40 IV Lasix, spironolactone 50. Will transfer patient to [facility] once a bed becomes available. I did go reevaluate the patient and hematuria seems to be slowing down. I called back [facility] and stated that we will hold off on transfer for now till the morning unless hematuria reoccurs. Later on I was informed around 8:30 PM that patient again had an episode of hematuria at which point we will now be transferring the patient. Physical Exam Narrative: General: Alert oriented x3, sitting up in recliner with at bedside. HEENT: Normocephalic, atraumatic, EOMI, no acute respiratory distress breathing comfortably no conversational dyspnea. Cardio: Regular rate rhythm, normal S1-S2, Respiratory: Clear to auscultation bilaterally no wheezes no rhonchi GI: Abdomen soft, mildly distended, no guarding, nontender Behavior: Appropriate and cooperative Extremities: No edema bilateral lower extremities Urinary Catheter Management: Hillman: Cath Placed During This Visit: yes Reason for Continuing Indwelling Catheter: Other Urinary Catheter Date of Insertion: 12/11/24 Urinary Catheter Time of Insertion: 10:13 TS Data Studies Completed and Pending Pending at discharge Category Date Time Status XR chest 1V portable [id number] Stat Exams 12/17/24 15:34 Taken Anaerobic Culture Routine Lab 12/11/24 16:40 Results Body Fluid Culture & GS Routine Lab 12/11/24 16:40 Results Mycobacteria, Culture w/Fluor Routine Lab 12/11/24 16:40 Results Urine Culture Routine Lab 12/15/24 15:49 Results Cytology [PTH] Routine Pth 12/11/24 16:40 [place] w [id number] Routine Ultrasound 12/17/24 10:38 Taken Completed Studies During Hospitalization Category Date Time Status CT abdomen pelvis wo con [id number] Stat Cat Scan 12/11/24 09:25 Completed CXRP [XR chest 1V portable [id number]] Routine Exams 12/13/24 10:27 Completed CXRP [XR chest 1V portable [id number]] Routine Exams 12/15/24 11:24 Completed XR chest 1V portable [id number] Stat Exams 12/11/24 08:56 Com[place]acent[place]d w [id number] Routine Ultrasound 12/13/24 16:40 Completed US renal BI* [id number] Routine Ultrasound 12/11/24 13:49 Completed Laboratory Last Values WBC 18.99 10^3/uL (3.29-11.43) H 12/17/24 19:34 RBC 3.31 10^6/uL (3.85-5.65) L 12/17/24 19:34 Hgb 9.30 g/dL (11.27-16.99) L D 12/17/24 19:34 Hct 29.5 % (37-53) L 12/17/24 19:34 MCV 89.1 fl (82-101) 12/17/24 19:34 MCH 28.1 pg (27-33) 12/17/24 19:34 MCHC 31.5 g/dL (30-55) 12/17/24 19:34 RDW 17.8 % (12.1-15.1) H 12/17/24 19:34 Plt Count 281 10^3/cmm (157-399) 12/17/24 19:34 MPV 11.3 fL (7.4-10.4) H 12/17/24 19:34 Neut % (Auto) 89.0 % 12/17/24 19:34 Lymph % (Auto) 3.4 % 12/17/24 19:34 [place] % (Auto) 4.1 % 12/17/24 19:34 Eos % (Auto) 0.5 % 12/17/24 19:34 Baso % (Auto) 0.1 % 12/17/24 19:34 Neut # (Auto) 16.89 10^3/uL (1.8-7.7) H 12/17/24 19:34 Lymph # (Auto) 0.7 10^3/uL (0.8-4.8) L 12/17/24 19:34 [place] # (Auto) 0.8 10^3/uL (0.2-0.9) 12/17/24 19:34 Eos # (Auto) 0.1 10^3/uL (0.0-0.8) 12/17/24 19:34 Baso # (Auto) 0.0 10^3/uL (0.0-0.1) 12/17/24 19:34 Nucleated RBC % (auto) 0 % 12/17/24 19:34 Total Counted 100 (0-100) 12/11/24 09:12 Atypical Lymphs % 2.0 % (0-5) 12/11/24 09:12 Absolute Neutrophils 17.2 10^3/cmm (1.4-6.5) H 12/11/24 09:12 Segmented Neutrophils 77 % 12/11/24 09:12 Band Neutrophils 13.0 % 12/11/24 09:12 Absolute Lymphocytes 0.8 10^3/cmm (1.2-3.4) L 12/11/24 09:12 Lymphocytes (Manual) 2 % 12/11/24 09:12 Monocytes (Manual) 1.0 % 12/11/24 09:12 Absolute Monocytes 0.2 10^3/cmm (0.1-0.6) 12/11/24 09:12 Eosinophils (Manual) 1 % 12/11/24 09:12 Absolute Eosinophils 0.2 10^3/cmm (0.0-0.7) 12/11/24 09:12 Basophils (Manual) 0.0 % 12/11/24 09:12 Absolute Basophils 0.0 10^3/cmm (0.0-0.2) 12/11/24 09:12 Metamyelocytes 2.0 % 12/11/24 09:12 Myelocytes 2.0 % 12/11/24 09:12 Nucleated RBCs # 0.0 /100WBC 12/17/24 19:34 Differential Comment Yes 12/13/24 13:30 Platelet Estimate Increased (Normal) 12/11/24 09:12 PT 14.90 SECONDS (12.1-14.9) 12/12/24 06:01 INR 1.09 (0.8-1.2) 12/12/24 06:01 Sodium 141 mmol/L (136-145) 12/17/24 04:26 Potassium 3.9 mmol/L (3.5-5.1) 12/17/24 04:26 Chloride 100 mmol/L (98-107) 12/17/24 04:26 Carbon Dioxide 27 mmol/L (22-29) 12/17/24 04:26 Anion Gap 17.9 (5-19) 12/17/24 04:26 BUN 43 mg/dL (8-23) H 12/17/24 04:26 Creatinine 1.5 mg/dL (0.7-1.2) H 12/17/24 04:26 GFR Calculation Not Reportable 12/17/24 04:26 Glucose 163 mg/dL (65-115) H 12/17/24 04:26 POC Glucose 298 mg/dL (70-110) H 12/17/24 20:20 Estimat Average Glucose 120 12/12/24 06:01 Hemoglobin A1c 5.8 % (4.0-6.0) 12/12/24 06:01 Serum Osmolality 307 mOsm/kg (278-305) H 12/11/24 18:17 Calculated Osmolality 306 mOsm/kg (285-295) H 12/17/24 04:26 Lactic Acid 1.8 mmol/L (0.5-2.2) 12/11/24 09:12 Calcium 8.9 mg/dL (8.5-10.5) 12/17/24 04:26 Magnesium 2.2 mg/dL (1.7-2.3) 12/12/24 06:01 Iron 19 ug/dL (59-158) L 12/11/24 18:17 TIBC 190 mcg/dl 12/11/24 18:17 % Saturation 10.0 % (20-50) L 12/11/24 18:17 Unsat Iron Binding 171 ug/dL (112-347) 12/11/24 18:17 Ferritin 588 ng/mL (30-400) H 12/11/24 18:17 Total Bilirubin 0.5 mg/dL (0.15-1.2) 12/13/24 05:13 AST 20 U/L (0-40) 12/13/24 05:13 ALT 12 U/L (0-41) 12/13/24 05:13 Alkaline Phosphatase 112 U/L (40-130) 12/13/24 05:13 Ammonia 25 umol/L (16-60) 12/11/24 18:17 NT-Pro-B Natriuret Pep 1033 pg/mL (0-450) H 12/11/24 09:12 Total Protein 5.8 g/dL (6.6-8.7) L 12/13/24 05:13 Albumin 3.3 g/dL (3.5-5.2) L 12/13/24 05:13 Globulin 2.5 g/dL (1.3-4.6) 12/13/24 05:13 Triglycerides 171 mg/dL (0-150) H 12/11/24 18:17 Cholesterol 100 mg/dL (0-200) 12/11/24 18:17 LDL Cholesterol, Calc 44 mg/dL (50-129) L 12/11/24 18:17 Total VLDL Cholesterol 34 mg/dL (0-30) H 12/11/24 18:17 HDL Cholesterol 22 mg/dL (60-100) L 12/11/24 18:17 Cholesterol/HDL Ratio 4.55 mg/dL (1.0-5.00) 12/11/24 18:17 Lipase 163 U/L (13-60) H 12/11/24 09:12 Vitamin B12 608 pg/mL (232-1245) 12/11/24 18:17 Procalcitonin 4.05 ng/mL (0-0.5) H 12/11/24 18:17 TSH 1.71 uIU/mL (0.27-4.20) 12/11/24 18:17 Urine Color [place] (Yellow) A 12/15/24 15:49 Urine Appearance Cloudy (CLEAR) A 12/15/24 15:49 Urine pH 5.5 (5-7) 12/15/24 15:49 Ur Specific [place] 1.017 (1.005-1.030) 12/15/24 15:49 Urine Protein 2+ (Negative) A 12/15/24 15:49 Urine Glucose (UA) 1+ (Normal) H 12/15/24 15:49 Urine Ketones Negative (Negative) 12/15/24 15:49 Urine Blood 3+ (Negative) A 12/15/24 15:49 Urine Nitrate Negative (Negative) 12/15/24 15:49 Urine Bilirubin Negative (Negative) 12/15/24 15:49 Urine Urobilinogen 0.2 mg/dL (Negative) 12/15/24 15:49 Ur Leukocyte Esterase Trace (Negative) A 12/15/24 15:49 Urine RBC >100 /hpf (0-2) H 12/15/24 15:49 Urine WBC 11-20 /hpf (0-5) H 12/15/24 15:49 Ur Squamous Epith Cells 11-20 /hpf (0-5) H 12/15/24 15:49 Amorphous Sediment Not Reportable 12/15/24 15:49 Urine Bacteria Trace /hpf (NONE) 12/15/24 15:49 Hyaline Casts 27.28 /lpf 12/15/24 15:49 Fine Granular Casts 15-25 /lpf H 12/15/24 15:49 Urine Osmolality 338 mOsm/kg (50-1200) 12/11/24 09:56 Ur Random Sodium < 20 mmol/L 12/11/24 09:56 Ur Random Chloride 11 mmol/L 12/11/24 09:56 Fluid Color [place] 12/13/24 13:30 Fluid Appearance Cloudy 12/13/24 13:30 Fluid Specific Grav 1.024 12/13/24 13:30 Fluid pH 7.0 12/13/24 13:30 Fluid WBC 585 /uL 12/13/24 13:30 Fluid RBC 4.000 10^3/uL 12/13/24 13:30 Fld Polynuclear WBCs # 0.308 12/13/24 13:30 Fld Polynuclear WBCs % 52.700 % 12/13/24 13:30 Fl Mononucl WBCs #(Auto) 0.277 12/13/24 13:30 Fl Mononuclear % Auto 47.300 % 12/13/24 13:30 Fld Crystal Laterality Peritoneal fluid 12/13/24 13:30 Fluid Glucose 148.0 mg/dL 12/13/24 13:30 Fluid Total Protein 3.2 g/dL 12/13/24 13:30 Fluid Albumin 1.8 g/dL 12/13/24 13:30 Fluid LDH 146 U/L 12/13/24 13:30 Fluid Alk Phosphatase 35 IU/L 12/13/24 13:30 Fluid Cholesterol 44 mg/dL (0-200) 12/13/24 13:30 Fluid Triglycerides 43 mg/dL (0-150) 12/13/24 13:30 Fluid Uric Acid 14 mg/dL 12/13/24 13:30 Peritoneal Amylase 23 U/L 12/13/24 13:30 Blood Type B Positive 12/17/24 10:17 Rho(D) Type Rh positive 12/17/24 10:17 Antibody Screen Negative 12/17/24 10:17 Crossmatch See Detail 12/17/24 10:17 Radiology Impressions Abdomen/Pelvis CT 12/11/24 09:25 IMPRESSION: 1. Diffuse abdominal and pelvic peritoneal ascites. 2. Cholelithiasis. 3. Osteopenia, osteoarthritis, and compression deformities lumbar spine 4. Heavy coronary artery calcifications Renal Ultrasound 12/11/24 13:49 IMPRESSION: No acute sonographic findings. Recent Clincial Data Last Vital Signs Temp 98.3 F 12/17/24 22:38 Pulse 102 H 12/17/24 22:38 Resp 17 12/17/24 22:38 BP 159/75 12/17/24 22:38 Pulse Ox 92 12/17/24 22:38 O2 Del Method Nasal Cannula 12/17/24 16:00 O2 Flow Rate 2 12/17/24 20:00 Vital Signs Temp Pulse Resp BP Pulse Ox 12/17/24 22:38 98.3 F 102 H 17 159/75 92 12/17/24 21:21 98.3 F 102 H 17 159/75 92 Intake & Output/Weight 06/12/12/17/24 12/18/24 12/19/24 06:59 06:59 06:59 06:59 Intake Total 8.404 / 2048.404 1840 / 1840 549 / 549 Output Total 2049 1300 / 1300 Balance -1.596 / -1.596 540 / 540 549 / 549 Weight 97.069 kg 96.162 kg Vitals Last Vital Signs Temp 98.3 F 12/17/24 22:38 Pulse 102 H 12/17/24 22:38 Resp 17 12/17/24 22:38 BP 159/75 12/17/24 22:38 Pulse Ox 92 12/17/24 22:38 O2 Del Method Nasal Cannula 12/17/24 16:00 O2 Flow Rate 2 12/17/24 20:00 TS Medications Medications Discontinued Medications Carvedilol (Carvedilol 6.25 Mg Tablet) 6.25 mg PO BID [facility] Last Admin: 12/17/24 18:38 Dose: 6.25 mg Ceftriaxone Sodium (Ceftriaxone 2,000 Mg Sdv) 2,000 mg IVP Q24H [facility] Last Admin: 12/17/24 10:04 Dose: 2,000 mg Furosemide (Furosemide 10 Mg/Ml Sdv 2ml) 20 mg IVP ONCE ONE Stop: 12/13/24 10:27 Last Admin: 12/13/24 12:19 Dose: Not Given Furosemide (Furosemide 10 Mg/Ml Sdv 2ml) 40 mg IVP ONCE ONE Stop: 12/13/24 10:27 Last Admin: 12/13/24 12:06 Dose: 40 mg Furosemide (Furosemide 40 Mg Tablet) 40 mg PO DAILY@0800 [facility] Last Admin: 12/15/24 11:39 Dose: 40 mg Furosemide (Furosemide 20 Mg Tablet) 20 mg PO DAILY@0800 [facility] Last Admin: 12/16/24 13:05 Dose: 20 mg Furosemide (Furosemide 10 Mg/Ml Sdv 2ml) 20 mg IVP ONCE ONE Stop: 12/17/24 01:49 Last Admin: 12/17/24 02:17 Dose: 20 mg Furosemide (Furosemide 20 Mg Tablet) 40 mg PO DAILY@0800 [facility] Last Admin: 12/17/24 10:03 Dose: 40 mg Glucagon (Glucagon 1 Mg/Ml Kit 1 Ml) 1 mg IM ONCE PRN; Protocol PRN Reason: Adult Acute Hypoglycemia Nursing Prot. Heparin Sodium (Porcine) (Heparin 5,000 Unit/Ml Inj 1 Ml) 5,000 unit SUBCUT Q12H [facility] Last Admin: 12/16/24 17:46 Dose: 5,000 unit Heparin Sodium (Porcine) (Heparin, Porcine 1,000 Unit/Ml Inj 10 Ml) 10,000 unit INTRACATH ONCE ONE Stop: 12/15/24 16:26 Last Admin: 12/16/24 14:36 Dose: Not Given Hydralazine HCl (Hydralazine 20 Mg/Ml Inj 1 Ml) 20 mg IVP ONCE ONE Stop: 12/17/24 04:32 Last Admin: 12/17/24 04:44 Dose: 20 mg Sodium Chloride (Sodium Chloride 0.9%) 1,000 mls @ 999 mls/hr IV .Q1H1M [facility] Stop: 12/11/24 11:30 Last Infusion: 12/11/24 11:25 Dose: Infused Albumin Human (Albumin) 25 g in 100 mls @ 60 mls/hr IV Q8H [facility] Last Infusion: 12/13/24 08:07 Dose: Infused Piperacillin Sod/Tazobactam (Sod / Sodium Chloride) 50 mls @ 0 mls/hr [id number] CONT [facility]; Protocol Piperacillin Sod/Tazobactam (Sod 3.375 gm/ Sodium Chloride) 50 mls @ 12.5 mls/hr IV Q12H [facility] Last Infusion: 12/14/24 13:25 Dose: Infused Sodium Chloride (Sodium Chloride 0.9%) 1,000 mls @ 75 mls/hr IV .[id number] [facility] Last Infusion: 12/14/24 17:28 Dose: Infused Sodium Bicarbonate 50 meq/ (Sodium Chloride) 1,050 mls @ 125 mls/hr IV .Q8H24M [facility] Last Admin: 12/14/24 17:28 Dose: Not Given Sodium Bicarbonate 150 meq/ (Dextrose) 1,150 mls @ 75 mls/hr IV .[id number] [facility] Last Infusion: 12/15/24 11:37 Dose: Infused Dexmedetomidine/Sodium Chloride (Precedex) 400 mcg in 100 mls @ 0 mls/hr IV .Q0M [facility]; Protocol Last Titration: 12/15/24 11:37 Dose: Infused Dextrose (D5w) 500 mls @ 0 mls/hr IV ONCE PRN; Protocol PRN Reason: Adult Acute Hypoglycemia Prot Dextrose (D10w) 125 mls @ 750 mls/hr IV PRN PRN; Protocol PRN Reason: Adult Acute Hypoglycemia Nursing Protocol Dextrose (D10w) 250 mls @ 1,000 mls/hr IV PRN PRN; Protocol PRN Reason: Adult Acute Hypoglycemia Nursing Protocol Dextrose (D5w) Confirm Administered Dose 1,000 mls @ as directed .ROUTE .STK-MED ONE Stop: 12/14/24 01:15 Albumin Human (Albumin) 12.5 gm in 50 mls @ 60 mls/hr IV ONCE ONE Stop: 12/14/24 09:16 Last Infusion: 12/14/24 11:17 Dose: Infused Albumin Human (Albumin) 25 gm in 100 mls @ 60 mls/hr IV DAILY [facility] Albumin Human (Albumin) 12.5 gm in 50 mls @ 60 mls/hr IV ONCE ONE Stop: 12/14/24 15:49 Albumin Human (Albumin) 25 gm in 100 mls @ 60 mls/hr IV BID [facility] Last Infusion: 12/15/24 11:37 Dose: Infused Albumin Human (Albumin) 25 gm in 100 mls @ 60 mls/hr IV DAILY [facility] Albumin Human (Albumin) 25 gm in 100 mls @ 60 mls/hr IV Q6H [facility] Last Infusion: 12/17/24 22:25 Dose: 0 mls/hr Insulin Glargine (Insulin Glargine 100 Units/1 Ml) 10 unit SUBCUT BEDTIME [facility] Last Admin: 12/17/24 21:21 Dose: 10 unit Insulin Human Lispro (Insulin Lispro 100 Unit/1 Ml) 0 unit SUBCUT TIDWM [facility]; Protocol Last Admin: 12/17/24 18:37 Dose: 2 unit Midodrine (Midodrine 5 Mg Tablet) 10 mg PO TID [facility] Last Admin: 12/15/24 08:13 Dose: Not Given Morphine Sulfate (Morphine 4 Mg/Ml Sdv 1 Ml) 2 mg IVP NOW ONE Stop: 12/12/24 10:20 Last Admin: 12/12/24 10:31 Dose: 2 mg Morphine Sulfate (Morphine 4 Mg/Ml Sdv 1 Ml) 2 mg IVP Q4H PRN PRN Reason: SEVERE PAIN Last Admin: 12/12/24 21:39 Dose: 2 mg Mupirocin (Mupirocin Oint 22 Gm) 1 applic TOPICAL BID [facility] Last Admin: 12/17/24 18:40 Dose: 1 applic Pantoprazole Sodium (Pantoprazole 40 Mg Sdv) 40 mg IVP Q12H [facility] Last Admin: 12/15/24 05:25 Dose: 40 mg Polyethylene Glycol/Electrolytes (Peg /E-Lyte Soln 4,000 Ml Btl) 1,500 ml PO ONCE ONE Stop: 12/17/24 18:44 Potassium Chloride (Potassium Chloride Er 20 Meq Tablet) 40 meq PO ONCE ONE Stop: 12/14/24 10:53 Last Admin: 12/14/24 11:46 Dose: 40 meq Potassium Chloride (Potassium Chloride Er 20 Meq Tablet) 20 meq PO BID [facility] Last Admin: 12/17/24 18:38 Dose: 20 meq Potassium Chloride (Potassium Chloride Er 20 Meq Tablet) 40 meq PO ONCE ONE Stop: 12/17/24 01:49 Last Admin: 12/17/24 02:18 Dose: 40 meq Sodium Bicarbonate (Sodium Bicarbonate 8.4% 1 Meq/Ml 50ml Syr) 50 meq IVP ONCE ONE Stop: 12/11/24 22:33 Last Admin: 12/11/24 23:22 Dose: 50 meq Sodium Bicarbonate (Sodium Bicarbonate 1 Meq/Ml Sdv 50ml) Confirm Administered Dose 150 meq .ROUTE .STK-MED ONE Stop: 12/14/24 01:12 Sodium Chloride (Sodium Chloride 0.9% 100 Ml Bag) 50 ml IV PRN PRN PRN Reason: Blood transfusion prime and flush Stop: 12/12/24 22:17 Sodium Chloride (Sodium Chloride 0.9% 100 Ml Bag) 50 ml IV PRN PRN PRN Reason: Blood transfusion prime and flush Stop: 12/18/24 09:51 Spironolactone (Spironolactone 25 Mg Tablet) 100 mg PO DAILY [facility] Last Admin: 12/15/24 11:39 Dose: 100 mg Spironolactone (Spironolactone 25 Mg Tablet) 25 mg PO DAILY [facility] Last Admin: 12/16/24 13:05 Dose: 25 mg Spironolactone (Spironolactone 25 Mg Tablet) 50 mg PO DAILY [facility] Last Admin: 12/17/24 10:02 Dose: 50 mg Sucralfate (Sucralfate 1 Gm/10 Ml Oral Liq Udc) 1 gm PO AC&BEDTIME [facility] Last Admin: 12/17/24 21:21 Dose: 1 gm Allergies No Known Allergies Allergy (Verified 11/03/24 11:51) Home Medications amlodipine 10 mg tablet 10 mg PO DAILY 12/26/20 [History Confirmed 12/11/24] atenolol 100 mg tablet 100 mg PO DAILY 12/26/20 [History Confirmed 12/11/24] hydrochlorothiazide 25 mg tablet 25 mg PO DAILY 01/17/22 [History Confirmed 12/11/24] metformin 1,000 mg tablet 1,000 mg PO BID 04/05/22 [History Confirmed 12/11/24] empagliflozin 25 mg tablet 12.5 mg PO DAILY 09/05/23 [History Confirmed 12/11/24] hydralazine 25 mg tablet 25 mg PO TID PRN Blood Pressure 09/05/23 [History Confirmed 12/11/24] losartan 100 mg tablet 100 mg PO DAILY 09/05/23 [History Confirmed 12/11/24] pravastatin 40 mg tablet 40 mg PO QPM 09/05/23 [History Confirmed 12/11/24] carvedilol 25 mg tablet 25 mg PO BID 12/11/24 [History Confirmed 12/11/24] donepezil 10 mg tablet 5 mg PO BEDTIME 12/11/24 [History Confirmed 12/11/24] Discharge Plan Discharge Patient Disposition: Home Health Service Condition: Stable Prescriptions: No Action amlodipine 10 mg tablet 10 mg PO DAILY atenolol 100 mg tablet 100 mg PO DAILY metformin 1,000 mg tablet 1,000 mg PO BID hydrochlorothiazide 25 mg tablet 25 mg PO DAILY carvedilol 25 mg tablet 25 mg PO BID donepezil 10 mg Tablet 5 mg PO BEDTIME pravastatin 40 mg Tablet 40 mg PO QPM hydralazine 25 mg Tablet 25 mg PO TID PRN (Reason: Blood Pressure) losartan 100 mg Tablet 100 mg PO DAILY empagliflozin 25 mg Tablet 12.5 mg PO DAILY Other Ambulatory Orders: DME: Allen (Order) Location: None Selected Ordered By: Arnold Oshea Referrals: [facility] ([facility]) [Outside] Maribel Dalton MD [Primary Care Provider, Family Practice] Patient Instructions: Opioid Safety Transfer Attestations Time Spent in Transfer Care: greater than 30 min Quality Metrics Clinical Quality Measures [ No reported AMI, CVA or VTE this stay] Coding Level of Care Code Acute Code for Chg Fwd Diagnoses Acute kidney injury N17.9
[2024-12-17] MEDS: insulin glargine 100 units/1 mL 10 UNIT SUBCUT (21:21)
[2024-12-17 23:01] LABS: Slide Review Slide Review Perform
== END 2024-12-17 22:41 | disposition home health service (06) | DRG 441 ==
LOC: ER 12:38 → ER IP 13:44 → ICU 17:06 → MEDSURG 12-14 16:59
PROVIDERS: Family Medicine; Hospitalist; Internal Medicine; Admitting Provider Internal Medicine; Emergency Provider Emergency Medicine; PCP Family Medicine; Visit Provider Internal Medicine
DX: K76.7 Hepatorenal syndrome (principal); J96.01 Acute respiratory failure with hypoxia; K65.2 Spontaneous bacterial peritonitis; E87.1 Hypo-osmolality and hyponatremia; I85.10 Secondary esophageal varices without bleeding; N17.9 Acute kidney failure, unspecified; R18.8 Other ascites; E87.20 Acidosis, unspecified; K74.60 Unspecified cirrhosis of liver; Z90.49 Acquired absence of other specified parts of digestive tract; I10 Essential (primary) hypertension; I95.9 Hypotension, unspecified; Z79.84 Long term (current) use of oral hypoglycemic drugs; Z79.899 Other long term (current) drug therapy; E11.649 Type 2 diabetes mellitus with hypoglycemia without coma; E78.5 Hyperlipidemia, unspecified; K75.81 Nonalcoholic steatohepatitis (NASH); E86.0 Dehydration; C61 Malignant neoplasm of prostate; D64.9 Anemia, unspecified; E87.70 Fluid overload, unspecified
CPT/HCPCS: 36415; 36416; 36430; 49083; 51702; 71045; 74176; 76770; 80048; 80053; 80061; 80503; 81001; 82042; 82140; 82150; 82436; 82465; 82607; 82728; 82945; 82962; 83036; 83540; 83550; 83605; 83615; 83690; 83735; 83880; 83930; 83935; 83986; 84075; 84145; 84157; 84300; 84315; 84443; 84478; 84560; 85007; 85014; 85018; 85025; 85610; 86850; 86900; 86920; 87015; 87040; 87070; 87075; 87077; 87086; 87116; 87186; 87205; 87206; 87801; 88112; 88305; 89050; 93005; 96365; 96367; 96372; 96376; 97116; 97162; 97167; 97530; 99285; J0360; J0696; J1644; J1815; J1938; J2270; J2470; J2543; J7030; J7070; J9999; P9016; P9046; P9047; Q3014

== ENCOUNTER → 2025-02-21 13:28 | Outpatient (BNVA) | payer OTHER, SELFPAY | PROVIDERS: PCP Family Medicine; Referring Provider Family Medicine; Visit Provider Internal Medicine Rheumatology | DX: M25.511 Pain in right shoulder (principal); M25.512 Pain in left shoulder; R76.8 Other specified abnormal immunological findings in serum; K74.60 Unspecified cirrhosis of liver | CPT/HCPCS: 99204 ==

== ENCOUNTER 2025-02-22 15:00 | Outpatient (CLI) | payer OTHER, SELFPAY ==
--- NOTE | 2025-02-22 15:07 | CT_ITS ---
WS: [id number] CT chest w con* [id number] HISTORY: PLEURAL EFFUSION PERSISTANT TECHNIQUE: Axial imaging performed through the thorax. Coronal and sagittal reformats are submitted. All CT scans at [facility] use at least one of these dose optimization techniques: automated exposure control; mA and/or kV adjustment per patient size (includes targeted exams where dose is matched to clinical indication); or iterative reconstruction. CONTRAST: Omnipaque 350; 100 mL IV. DLP: 440.34 mGy.cm COMPARISON: CT 12/11/2024 Lungs and central airway: Breathing motion artifact. No pulmonary mass or nodule identified. Partial compressive atelectasis LEFT lower lobe. Pleura: Small to moderate bilateral pleural effusions. LEFT pleural effusion is slightly larger than the RIGHT. Heart and pericardium: Normal size heart with no pericardial effusion. Mediastinum and prabha: No mediastinum or hilar adenopathy. Vessels: Mild atherosclerosis aorta. No aneurysm. Normal size pulmonary artery. Chest wall and lower neck: No soft tissue masses. Upper abdomen: Ascites noted within the upper abdomen which has been previously described. Cirrhotic configuration of the liver. Portal vein is patent. Cholelithiasis. Gallbladder is incompletely included. No adrenal mass identified. Osseous structures: No destructive process. CT/CT chest w con* [id number] IMPRESSION: 1. Small to moderate bilateral pleural effusions, LEFT greater than RIGHT. 2. Partial compressive atelectasis LEFT lower lobe. 3. No pneumonia or mass identified. 4. Cirrhotic liver. 5. Moderate ascites in the upper abdomen. 6. Cholelithiasis.
[2025-02-22] MEDS: iohexol 350 mg/mL 500 mL Btl (per mL) IV (15:43)
== END 2025-02-22 15:01 | disposition home or self-care (01) ==
LOC: RAD 15:01
PROVIDERS: PCP Family Medicine; Visit Provider Family Medicine
DX: J90 Pleural effusion, not elsewhere classified (principal); R18.8 Other ascites; K80.20 Calculus of gallbladder without cholecystitis without obstruction; J98.11 Atelectasis
CPT/HCPCS: 71260

== ENCOUNTER 2025-04-06 05:00 | Outpatient (CLI) | payer OTHER, SELFPAY | END 2025-04-06 05:01 | LOC: SOT 05-09 09:09 | PROVIDERS: PCP Family Medicine; Visit Provider Nurse Practitioner | DX: Z46.89 Encounter for fitting and adjustment of other specified devices (principal); S42.413A Displaced simple supracondylar fracture without intercondylar fracture of unspecified humerus, initial encounter for closed fracture; W01.0XXA Fall on same level from slipping, tripping and stumbling without subsequent striking against object, initial encounter | CPT/HCPCS: L3761 ==

== ENCOUNTER 2025-04-28 12:27 | Oncology outpatient (recurring) (ONCR) | payer OTHER, SELFPAY ==
[2025-04-28 12:58] LABS: Hematocrit 27.7 % (37-53); Hemoglobin 8.40 g/dL (11.27-16.99); Mean Corpuscular HGB Conc 30.3 g/dL (30-55); Mean Corpuscular Hemoglobin 28.9 pg (27-33); Mean Corpuscular Volume 95.2 fl (82-101); Nucleated Red Blood Cells % 0 %; Platelet Count 270 10^3/cmm (157-399); Red Blood Count 2.91 10^6/uL (3.85-5.65); White Blood Count 7.66 10^3/uL (3.29-11.43)
[2025-04-28 13:31] LABS: Alanine Aminotransferase 26 U/L (0-41); Albumin Level 3.2 g/dL (3.5-5.2); Alkaline Phosphatase 292 U/L (40-130); Anion Gap 15.8 (5-19); Aspartate Amino Transferase 34 U/L (0-40); Blood Urea Nitrogen 15 mg/dL (8-23); Calcium 8.4 mg/dL (8.5-10.5); Carbon Dioxide 25 mmol/L (22-29); Chloride 101 mmol/L (98-107); Creatinine Clr Calc Pharmacy 71.8608; Ferritin 406 ng/mL (30-400); Globulin 4.4 g/dL (1.3-4.6); Glucose 183 mg/dL (65-115); Iron 35 ug/dL (59-158); Osmolality Calculated 292 mOsm/kg (285-295); Potassium 3.8 mmol/L (3.5-5.1); Sodium 138 mmol/L (136-145); Total Iron Binding Capacity 203 mcg/dl; Total Protein 7.6 g/dL (6.6-8.7); Unsaturated Iron Binding 168 ug/dL (112-347)
[2025-04-28 13:46] LABS: Vitamin B12 833 pg/mL (232-1245)
== END 2025-05-06 23:59 | disposition home or self-care (01) ==
PROVIDERS: PCP Family Medicine; Visit Provider Internal Medicine
DX: Z08 Encounter for follow-up examination after completed treatment for malignant neoplasm (principal); Z85.46 Personal history of malignant neoplasm of prostate; K74.60 Unspecified cirrhosis of liver; Z92.3 Personal history of irradiation
CPT/HCPCS: 36415; 80053; 82607; 82728; 82746; 83010; 83540; 83550; 83615; 85025; 99213

== ENCOUNTER 2025-04-30 08:35 | Emergency (ER) | payer OTHER, SELFPAY ==
--- OUTSIDE RECORDS SUMMARY | 2025-01-26 04:30 | XMS_ITS ---
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 Name Role Phone [facility] Primary Care Provider Kym KALA Dale Unavailable [phone] Ms, Gabbs Unavailable Unavailable CHUCK GUTIERRES Unavailable [phone] REASON FOR VISIT Hematuria/Renal Cyst (Disc in filefolder) Encounters Encounter Location Date Provider Diagnosis [facility] [address] [place] [facility] [place] [address] 01/26/2025 CHUCK GUTIERRES Plan Of Treatment Next Appt Details Provider Name:CHUCK Mueller ADRIDOREEN, 0 03/16/2026 10:50:00 AM, [address] [place], [address], Progress Notes * Barrera MENENDEZ LDOB:[birth year] (74 yo M)Acc No.[id number]:01/26/2025 Progress Notes Patient: Veronica Barrera LAWRENCE Provider: GWENDOLYN Nobles :1950 A ge:74 Y S ex:Male Date:01/26/2025 Address: [id number] Pcp:[facility] Subjective: * Chief Complaints: * 1 . Hematuria/Renal Cyst (Disc in filefolder). * Medical History: Objective: * Vitals: Assessment: Plan: * Treatment: * Billing Information: * Visit Code: * Procedure Codes: * Electronic signature of CHUCK GUTIERRES APRN on 04/30/2025 at 08:42 AM CDT Sign off status: Pending * Provider: Baldemar Gutierres APRN-[facility] Date: 0 01/26/2025 Generated for Fatimah barlow/Pamela/Rodrigue on: 1 08:42 AM CDT
--- OUTSIDE RECORDS SUMMARY | 2025-04-30 08:42 | XMS_ITS | Clinical Summary ---
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
--- OUTSIDE RECORDS SUMMARY | 2025-04-30 08:42 | XMS_ITS | Patient Health Record ---
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 Phone [facility] Primary Care Provider KALA Hansen Unavailable [phone] [place], [place] Unavailable Unavailable CHUCK GUTIERRES Unavailable [phone] Allergies No Known Allergies Results Component Value Reference Range Notes Urinalysis, Routine Reviewed date:03/10/2025 11:01:06 AM Interpretation: Performing Lab: Notes/Report: Urine-Color yellow Appearance clear Glucose 3+ Bilirubin 1+ Ketones - Specific Lee 1.010 Occult Blood - pH 6.0 Urine Protein trace Urobilinogen,Semi-Qn - Nitrite, Urine - WBC Esterase - Reason For Referral No Information Medications Medication SIG (Take, Route, Frequency, Duration) Notes Start Date End Date Status amLODIPine Besylate 10 MG 1 tablet Orall y Once a day Active Furosemide 20 MG 1 tablet Orally Once a day 03/10/2025 Active Carvedilol 25 MG 1 tablet with food Orally Twice a day Active Glimepiride 2 MG 1 tablet with breakf ast or the first main meal of the day Orally Once a day Active Donepezil HCl 5 MG 1 tablet at bedtime Orally Once a day Active Empagliflozin 25 MG 1 tablet Orally Once a day Active Ferrous Sulfate 325 (65 Fe) MG 1 tablet Orally Three times a Week Active Fish Oil 1000 MG 1 capsule Orally Thr ee times a day Active Vitamin B12 Active metFORMIN HCl 1000 MG 1 tablet with a me al Orally 3 times a day 03/10/2025 Active Social History Tobacco Use: Social History Observation Description Date Details (start date - stop date) Never Smoker NA - NA Tobacco Control (Standard) Question Answer Notes Tobacco use: Nonsmoker AUDIT-C (Standard) Question Answer Notes Did you have a drink containing alcohol in the p ast year? No Points 0 Interpretation Negative Problems Problem Type SNOMED Code ICD Code Onset Dates Problem Status W/U Status Risk Notes Problem History of radiation therapy (801280588) History of radiation therapy (Z92.3) Active confirmed Problem Malignant tumor of prostate (638760487) Prostate cancer (C61) Active confirmed Vital Signs Heart Rate 74 /min 03/10/2025 Blood pressure diastolic 67 mm Hg 03/10/2025 Height-cm 177.8 cm 03/10/2025 Weight-kg 90.27 kg 03/10/2025 Height 70 in 03/10/2025 Blood pressure systolic 112 mm Hg 03/10/2025 Weight 199 lbs 03/10/2025 BMI 28.55 kg/m2 03/10/2025 Procedures Procedure Date Ordered Date Performed Result Body Sit e Bladder Scan 03/10/2025 03/10/2025 145 ml Encounters Encounter Location Date Provider Diagnosis [facility] [address] [facility] [place] [address] 03/10/2025 CHUCK GUTIERRES Renal cyst, left N28 .1 ; Establishing care with new doctor, encounter for Z76.89 ; History of hematuria Z87.448 ; Urinary frequency R35.0 ; Nocturia R35.1 ; Incomplete bladder emptying R33.9 ; Prostate cancer C61 and History of radiation therapy Z92.[address] [facility] [address] [place] [address] 01/10/2025 KALA MCCAIN Assessments Encounter Date Diagnosis (ICD Code) Assessment Notes Treatment Notes Treatment Clinical Notes Section Notes 03/10/2025 Establishing care with new doctor, encounter for (ICD-10 - Z76.89) 03/10/2025 Renal cyst, left (ICD-10 - N28.1) 03/10/2025 History of hematuria (ICD-10 - Z87.448) 03/10/2025 Urinary frequency (ICD-10 - R35.0) 03/10/2025 Nocturia (ICD-10 - R35.1) 03/10/2025 Incomplete bladder emptying (ICD-10 - R33.9) 03/10/2025 Prostate cancer (ICD-10 - C61) 03/10/2025 History of radiation therapy (ICD-10 - Z92.3) 03/10/2025 Other UA clear today, PVR 141ml. He denies any recurrence of hematuria since the one isolated incidence with catheter trauma in the hospital. Denies any bothersome LUTS at this time. Prostate cancer managed by [facility] Oncology with appts Q6M. Recent PSA of 1.73. RTC in 1 year with UA/PVR, or PRN sooner with any hematuria or bothersome urinary symptoms. Plan Of Treatment Next Appt Details Provider Name:CHUCK GUITERRES, 0 03/16/2026 10:50:00 AM, [address] [place], [address], Insurance Providers Payer Name Payer Address Payer Phone Subscriber Number Group Number Insured Name Patient Relationship to Insured Coverage Start Date Coverage End Date [employer] [address] [place] [id number] Barrera Menendez Self - patient is the insured Medical (General) History Medical History History ICD Code HTN diabetes prostate cancer skin cancer anemia Surgical History Surgery Date(Month/Year) bowel resection port placement for cancer crushed ankle Hospitalization History Reason Date(Month/Year) crushed ankle 1995 WBC low 2020 kidney failure
--- OUTSIDE RECORDS SUMMARY | 2025-04-30 08:42 | XMS_ITS | Clinical Summary ---
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 Active metFORMIN (GLUCOPHAGE) 1,000 mg tablet Take 1,000 mg by mouth 2 times daily with meals. Active omega-3 fatty acids-fish oil 300-1,000 mg [...] needed (for BP greater than 140). Active furosemide (Lasix) 20 mg tablet Take 1 Tablet (20 mg) by mouth daily. 30 Tablet 12/20/2024 Active Active Problems Problem Noted Date Diagnosed Date Carcinoma of prostate 12/18/2024 Overview (12/18/2024): Sep 24, 2021 Entered By: MARIBEL ARGUELLO Comment: radiation treatment Hyperlipidemia 12/18/2024 Essential (primary) hypertension 12/18/2024 Obesity 12/18/2024 Type 2 diabetes mellitus 12/18/2024 Gross hematuria 12/18/2024 JETT (acute kidney injury) 12/18/2024 SBP (spontaneous bacterial peritonitis) 12/19/19 25 Anemia requiring transfusions 12/18/2024 History of external beam radiation therapy 12/18 Hepatic cirrhosis 08/03/2024 Overview (12/18/2024): Sep 24, 2024 Entered By: MARIBEL ARGUELLO Comment: 1 antitrypsin positive November 12, 2024 Entered By: MARIBEL ARGUELLO Comment: Chronic stable ascites Bright red rectal bleeding 04/25/2024 S/P hemorrhoidectomy 04/25/2024 Encounters Date Type Department Care Team Description 04/12/2025 External Device Data [facility] ABSTRACTION Provider, Abstract 04/12/2025 External Device Data [facility] ABSTRACTION Provider, Abstract 03/22/2025 External Device Data [facility] ABSTRACTION Provider, Abstract 02/23/2025 External Device Data [facility] ABSTRACTION Provider, Abstract 02/22/2025 External Device Data [facility] ABSTRACTION Provider, Abstract 02/22/2025 External Device Data [facility] ABSTRACTION Provider, Abstract [...] who hurts you emotionally and/or physically? 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 Gender Identity Not on file Sexual Orientation Not on file Last Filed Vital Signs Vital Sign Reading Time Taken Comments Blood Pressure 139/66 12/21/2024 8:06 AM CDT Pulse 82 12/21/2024 8:06 AM CDT Temperature 36.6 C (97.8 F) 12/21/2024 8:06 AM CDT Respiratory Rate 16 12/21/2024 8:06 AM CDT Oxygen Saturation 96% 12/21/2024 8:06 AM CDT Inhaled Oxygen Concentration - - Weight 97 kg (213 lb 13.5 oz) 12/21/2024 4:47 AM CDT Height 177.8 cm (5' 10 ) 12/18/2024 12:42 AM CDT Body Mass Index 30.68 12/18/2024 12:42 AM CDT Plan of Treatment Health Maintenance Due Date Last Done Comments DIABETES ANNUAL FOOT EXAM 1967 DIABETES MICROALBUMIN ANNUAL SCREEN 1967 LDL CHOLESTEROL ANNUAL 1967 FIT-DNA Q 3 years 1994 FIT/FOBT Q 1 year 1994 Flex Sig/CT Colonography Q 5 years 1994 PNEUMOCOCCAL VACCINE 50+ YEA RS (2 of 2 - PCV) 09/28/2022 09/28/2021 RSV VACCINE (60+ or ) (1 - 1-dose 75+ series) 2024 INFLUENZA VACCINE (#1) 2025 DIABETES HBA1C Q 6 MONTHS 03/03/2025 09/03/2024 COVID-19 Vaccine (2024- season) 2025 07/10/2021, 12/12/2020, 11/14/2020 DIABETES ANNUAL RETINAL EXAM 06/22/2025 06/22/2024, 05/19/2024 DTAP/TDAP/TD VACCINES (3 - T d or Tdap) 09/15/2033 09/16/2023, 01/01/2013, 10/05/2000 COLORECTAL SCREENING 08/11/2034 08/11/2024, 04/07/2023, 02/10/2023 Colorectal Cancer Screening 08/11/2034 ZOSTER VACCINE Completed 03/27/2022, 09/28/2021 Medical Devices Implanted Type Area Diesel Locomotive Firer Device Identifier Shelf Expiration Date Model / Serial / Lot Plate Plate Right: Ankle Insurance CT CCN [employer] [facility] Advance Directives For more information, please contact: [phone] * Full Code (Latest Code Status on File) Date Activated Date Inactivated Comments 12/18/2024 1:21 AM 12/21/2024 2:03 PM * Full Code Date Activated Date Inactivated Comments 04/12/2024 7:01 AM 04/12/2024 10:14 AM * Full Code Date Activated Date Inactivated Comments 04/12/2024 6:45 AM 04/12/2024 7:00 AM
[2025-04-30 08:53] VITALS: BP 162/75; PULSE 85; RESP 16; TEMP 36.7; O2SAT 98; BMI 28.3
--- NOTE | 2025-04-30 08:54 | XRR_ITS ---
PROCEDURE INFORMATION: Exam: XR Right Elbow Exam date and time: 04/30/2025 8:59 AM Age: 74 years old Clinical indication: Injury or trauma; Fall; Blunt trauma (contusions or hematomas); Elbow; Right TECHNIQUE: Imaging protocol: Radiologic exam of the right elbow. Views: 3 or more views. COMPARISON: CR (UP EX, ) 04/30/2025 8:59 AM FINDINGS: Bones/joints: There is a supracondylar fracture involving the distal humerus. There are degenerative changes involving the humeral ulnar and radiocapitellar articulations with joint space narrowing and osteophyte formation. Bony mineralization is decreased. There is a joint effusion with displacement of the anterior and posterior elbow fat pads. Soft tissues: There is surrounding soft tissue swelling. XR/XR elbow RT min 3V* [id number] IMPRESSION: 1. Supracondylar fracture of the distal humerus. 2. Osteoarthritis.
--- NOTE | 2025-04-30 08:54 | XRR_ITS ---
PROCEDURE INFORMATION: Exam: XR Right Humerus Exam date and time: 04/30/2025 8:59 AM Age: 74 years old Clinical indication: Injury or trauma; Fall; Blunt trauma (contusions or hematomas); Arm, upper; Right TECHNIQUE: Imaging protocol: Radiologic exam of the right humerus. Views: 2 or more views. COMPARISON: CR XR chest 1V portable [id number] 12/13/2024 11:02 AM FINDINGS: Bones/joints: There is a supracondylar fracture involving the distal humerus. Bony mineralization is decreased. Soft tissues: There is soft tissue swelling about the elbow. XR/[place] [id number] IMPRESSION: 1. Supracondylar fracture involving the distal humerus.
--- NOTE | 2025-04-30 09:05 | W.ED.EXTPRO ---
HPI - Extremity Problem General: Chief complaint: Extremity Injury, Upper Stated complaint: Fall Hurt R elbow Time Seen by Provider: 04/30/25 08:53 History of Present Illness: 74-year-old male presents to the emergency room complaining of right elbow pain after tripping over a hose while walking falling and hitting his right elbow. No other injuries no loss consciousness Associated symptoms: Deny chest pain, fever(s) or rash Related Data Home Medications ?Medication ?Instructions ?Recorded ?Confirmed amlodipine 10 mg tablet 10 mg PO DAILY 12/26/20 04/28/25 metformin 1,000 mg tablet 1,000 mg PO BID 04/05/22 04/28/25 empagliflozin 25 mg tablet 12.5 mg PO DAILY 09/05/23 04/28/25 hydralazine 25 mg tablet 25 mg PO TID PRN Blood Pressure 09/05/23 04/28/25 carvedilol 25 mg tablet 25 mg PO BID 12/11/24 04/28/25 donepezil 10 mg tablet 5 mg PO BEDTIME 12/11/24 04/28/25 ferrous sulfate [High Potency Iron] PO 02/21/25 04/28/25 furosemide 20 mg tablet (Lasix) 20 mg PO DAILY 02/21/25 04/28/25 mecobalamin (vitamin B12) 1,000 1,000 mcg PO DAILY 02/21/25 04/28/25 mcg chewable tablet omega 9-rho-asa-fish oil 1,000 mg 1 cap PO DAILY 02/21/25 04/28/25 (120 mg-180 mg) capsule (Fish Oil) Previous Rx's ?Medication ?Instructions ?Recorded hydrocodone 5 mg-acetaminophen 325 1 tab PO Q6H PRN pain #15 tabs 04/30/25 mg tablet Allergies Allergy/AdvReac Type Severity Reaction Status Date / Time No Known Allergies Allergy Verified 04/28/25 12:47 Review of Systems Const: Denies: fever(s) or chills Card: Denies: chest pain Resp: Denies: dyspnea GI: Denies: abdominal pain : Denies: dysuria, urinary frequency or urinary urgency Musc: Denies: neck pain or back pain Skin/Breast: Denies: rash PFSH ED PFSH: Medical History Shoulder pain, bilateral Positive antinuclear antibody UTI (urinary tract infection) Thrombocytopathia Leukopenia JETT (acute kidney injury) Hematochezia Hyperlipidemia Diabetes Hypertension Prostate cancer Surgical History History of surgery on lower extremity H/O melanoma excision H/O partial resection of colon Port-A-Cath in place (01/03/21) History of ankle surgery Family History Father Stroke Grandfather Stroke CAD (coronary artery disease) Family/Other Cancer Uncle - Liver cancer 2 other uncles with unknown cancer Mother Diabetes Mother No problems noted. Grandmother Diabetes Sister Diabetes Denies family history of Clotting disorder Dementia Hyperlipidemia Psychiatric illness Chronic kidney disease (CKD) Suicide Anesthesia complication Bleeding disorder Lung disease Hypertension Social History Smoking and tobacco/nicotine status: never used tobacco/nicotine Alcohol intake: former Substance/Drug Use: never Physical Exam Const: COMMON NORMALS: no acute distress GENERAL APPEARANCE: cooperative and comfortable ORIENTATION/CONSCIOUSNESS: Yes awake, Yes oriented to person, Yes oriented to place and Yes oriented to time HENMT: COMMON NORMALS: normocephalic, atraumatic and hearing grossly normal bilaterally HEAD & SCALP: normocephalic and atraumatic Resp: COMMON NORMALS: normal respiratory effort, No retractions, No use of accessory muscles and clear to auscultation bilaterally AUSCULTATION: clear to auscultation bilaterally Cardio: COMMON NORMALS: regular rate, regular rhythm and No murmurs present (Cardio) RATE: regular rate RHYTHM: regular rhythm Extremity: COMMON NORMALS: normal to inspection, capillary refill normal, no clubbing, cyanosis or edema, no calf tenderness and no pedal edema Neuro: SENSORIUM/ORIENTATION: Yes oriented to person, Yes oriented to place and Yes oriented to time Skin: COMMON NORMALS: no rashes or lesions noted GENERAL SKIN EXAM: no rashes or lesions noted Course Vital Signs: Vital signs: Vital Signs Temperature 98.0 F 04/30/25 08:53 Pulse Rate 85 04/30/25 08:53 Respiratory Rate 16 04/30/25 08:53 Blood Pressure 162/75 04/30/25 08:53 Pulse Oximetry 98 04/30/25 08:53 Oxygen Delivery Me thod Room Air 04/30/25 08:53 MDM - Extremity (Nontraumatic) Medical Decision Making Supracondylar fracture Medical Records I reviewed the patient's medical records. Lab Data I reviewed the patient's lab results. Radiology Impressions Elbow X-Ray 04/30/25 08:54 IMPRESSION: 1. Supracondylar fracture of the distal humerus. 2. Osteoarthritis. Humerus X-Ray 04/30/25 08:54 IMPRESSION: 1. Supracondylar fracture involving the distal humerus. All radiology interpretation(s) finalized by discharge Discharge Plan Discharge Patient Disposition: Home Clinical Impression: Supracondylar fracture of humerus, closed Condition: Stable Prescriptions: New hydrocodone-acetaminophen 5-325 mg tablet 1 tab PO Q6H PRN (Reason: pain) Qty: 15 0RF No Action amlodipine 10 mg tablet 10 mg PO DAILY metformin 1,000 mg tablet 1,000 mg PO BID furosemide [Lasix] 20 mg tablet 20 mg PO DAILY omega 5-vrq-wvz-fish oil [Fish Oil] 1,000 (120-180) mg capsule 1 cap PO DAILY mecobalamin (vitamin B12) 1,000 mcg tablet,chewable 1,000 mcg PO DAILY ferrous sulfate [High Potency Iron] PO carvedilol 25 mg tablet 25 mg PO BID donepezil 10 mg Tablet 5 mg PO BEDTIME hydralazine 25 mg Tablet 25 mg PO TID PRN (Reason: Blood Pressure) empagliflozin 25 mg Tablet 12.5 mg PO DAILY Discharge Orders: Discharge ED (Routine); Ordered 04/30/25 Ordered By: Reinier Vega Referrals: Maribel Dalton MD [Primary Care Provider, Family Practice] Discharge Diet: Usual diet Discharge Activity: Limit activity as instructed Patient Instructions: Opioid Safety, Pain Management, Patient Portal & Karolyn Instructions Activity Restrictions/Additional Instructions: Thank you for choosing [facility] for your healthcare needs today. It is very important that you follow up as instructed or that you return to the Emergency Department should you have concerns or if your condition changes or worsens in any way. Emergency department visits are focused on emergent conditions, in some cases you may require further evaluation on an outpatient basis. You are seen in the emergency room with complaint of right elbow pain x-rays show a fracture just above the elbow. You are placed in a splint given pain medications case management make arrangements for you to follow-up with orthopedics in the office next week. Do not use the right arm until released by orthopedics you should leave it in the sling and splint. (Please note that included in your discharge packet is information concerning opioid safety and pain management. This information is given to all patients were discharged from the ER regardless of their discharge diagnosis or the medicines they usually take or are prescribed.) Print Language: Upper Sorbian Coding Level of Care Code ED Cafe Manager for Fátima Rhodes
--- NOTE | 2025-05-04 09:04 | DCPLANNER ---
sent to ortho for a urgent follow up
== END 2025-04-30 10:18 | disposition home or self-care (01) ==
PROVIDERS: Emergency Provider Family Medicine; PCP Family Medicine
DX: S42.411A Displaced simple supracondylar fracture without intercondylar fracture of right humerus, initial encounter for closed fracture (principal); W18.09XA Striking against other object with subsequent fall, initial encounter; E78.5 Hyperlipidemia, unspecified; E11.9 Type 2 diabetes mellitus without complications; I10 Essential (primary) hypertension; Z85.46 Personal history of malignant neoplasm of prostate
CPT/HCPCS: 73060; 73080; 99283

== ENCOUNTER → 2025-05-06 11:42 | Outpatient (BNVA) | payer OTHER, SELFPAY | PROVIDERS: PCP Family Medicine; Visit Provider Nurse Practitioner | DX: S42.414A Nondisplaced simple supracondylar fracture without intercondylar fracture of right humerus, initial encounter for closed fracture (principal); W19.XXXA Unspecified fall, initial encounter | CPT/HCPCS: 24530; 99204 ==

== ENCOUNTER → 2025-05-20 10:20 | Outpatient (BNVA) | payer OTHER, SELFPAY | PROVIDERS: PCP Family Medicine; Visit Provider Nurse Practitioner | DX: S42.414D Nondisplaced simple supracondylar fracture without intercondylar fracture of right humerus, subsequent encounter for fracture with routine healing (principal); W19.XXXD Unspecified fall, subsequent encounter | CPT/HCPCS: 73080; 99024 ==

== ENCOUNTER 2025-06-01 07:42 | Outpatient (CLI) | payer OTHER, SELFPAY ==
--- NOTE | 2025-06-01 07:49 | USR_ITS ---
PROCEDURE INFORMATION: Exam: US Duplex Artery or Vein of the Abdominal and/or Reproductive Organs, Limited Exam date and time: 06/01/2025 7:59 AM Age: 75 years old Clinical indication: Condition or disease; Liver condition; Cirrhosis; Additional info: Cirrhosis of liver TECHNIQUE: Imaging protocol: Real-time duplex ultrasound scan of the arterial or venous flow of the abdomen and/or reproductive organs, with color Doppler flow and spectral waveform analysis with image documentation. Exam focused on the region of clinical interest. Duplex exam was performed to evaluate for vascular conditions. COMPARISON: [place] [id number] 12/17/2024 7:35 AM FINDINGS: Portal venous: Spectral sonography demonstrates patent portal vein with hepatopedal blood flow. Blunted respiratory phasicity, suggesting decreased normal compliance of the liver. (spectral analysis was performed secondary to history of cirrhosis to exclude portal venous thrombus.) PROCEDURE INFORMATION: Exam: US Abdomen; Limited Exam date and time: 06/01/2025 7:59 AM Age: 75 years old Clinical indication: Condition or disease; Liver condition; Cirrhosis; Additional info: Cirrhosis of liver TECHNIQUE: Imaging protocol: Real time ultrasound of the abdomen with image documentation. Limited exam focused on the region of clinical interest. COMPARISON: [place] paracentesis abd w [id number] 12/17/2024 7:35 AM FINDINGS: Liver: Enlarged liver with morphologic changes of cirrhosis including surface nodularity are noted. Gallbladder: The gallbladder is normal without stones, wall thickening, or pericholecystic fluid. Biliary ducts: The common bile duct measures up to 5 mm, within normal limits. No intra or extrahepatic bile duct dilatation is noted. Pancreas: The pancreas is partially obscured secondary to overlying bowel gas. No ductal dilatation is discretely identified. Right kidney: The right kidney measures 9.9 x 5.8 x 6.1 cm. Normal renal echogenicity and echotexture. Normal cortical thickness. No hydronephrosis, nephrolithiasis, or solid renal mass is noted. Appropriate vascular color Doppler flow is noted within the renal hilum. Intraperitoneal space: Small volume abdominopelvic ascites is present. Aorta: The imaged aorta is patent and nonaneurysmal. Inferior vena cava: The imaged IVC is patent. Portal venous: The portal veins are patent and nondilated. US/US liver [id number] IMPRESSION: Blunted respiratory phasicity of the portal venous waveform, suggesting a decrease of the normal compliance of the liver, corresponding. IMPRESSION: 1. US-1 negative: No hepatic observations or definitely benign observations. Repeat ultrasound in 6 months for HCC screening. 2. VIS-A no or minimal limitations. 3. Hepatic cirrhosis. 4. Small volume ascites.
== END 2025-06-01 07:43 | disposition home or self-care (01) ==
LOC: RAD 07:44
PROVIDERS: PCP Family Medicine; Visit Provider Nurse Practitioner
DX: K74.69 Other cirrhosis of liver (principal); R16.0 Hepatomegaly, not elsewhere classified; R18.8 Other ascites
CPT/HCPCS: 76705

== ENCOUNTER 2025-06-08 12:06 | Oncology outpatient (recurring) (ONCR) | payer OTHER, SELFPAY ==
[2025-06-08 12:37] LABS: Hematocrit 26.4 % (37-53); Hemoglobin 8.00 g/dL (11.27-16.99); Mean Corpuscular HGB Conc 30.3 g/dL (30-55); Mean Corpuscular Hemoglobin 29.3 pg (27-33); Mean Corpuscular Volume 96.7 fl (82-101); Nucleated Red Blood Cells % 0 %; Platelet Count 199 10^3/cmm (157-399); Red Blood Count 2.73 10^6/uL (3.85-5.65); White Blood Count 6.22 10^3/uL (3.29-11.43)
[2025-06-08 13:29] LABS: Alanine Aminotransferase 19 U/L (0-41); Anion Gap 15.9 (5-19); Aspartate Amino Transferase 29 U/L (0-40); Blood Urea Nitrogen 18 mg/dL (8-23); Calcium 8.5 mg/dL (8.5-10.5); Carbon Dioxide 26 mmol/L (22-29); Chloride 101 mmol/L (98-107); Ferritin 277 ng/mL (30-400); Globulin 4.1 g/dL (1.3-4.6); Osmolality Calculated 295 mOsm/kg (285-295); Potassium 3.9 mmol/L (3.5-5.1); Sodium 139 mmol/L (136-145); Total Iron Binding Capacity 211 mcg/dl; Total Protein 7.4 g/dL (6.6-8.7); Unsaturated Iron Binding 155 ug/dL (112-347); Vitamin B12 596 pg/mL (232-1245)
[2025-06-08 14:38] LABS: Albumin Level 3.3 g/dL (3.5-5.2); Alkaline Phosphatase 247 U/L (40-130); Glucose 187 mg/dL (65-115); Iron 56 ug/dL (59-158); Prostate Specific Antigen < 0.014 ng/mL (0-4)
== END 2025-07-06 23:59 | disposition home or self-care (01) ==
PROVIDERS: Nurse Practitioner; PCP Family Medicine; Visit Provider Internal Medicine
DX: Z08 Encounter for follow-up examination after completed treatment for malignant neoplasm (principal); Z85.46 Personal history of malignant neoplasm of prostate; D64.9 Anemia, unspecified; Z92.3 Personal history of irradiation; Z95.828 Presence of other vascular implants and grafts
CPT/HCPCS: 36415; 80053; 82607; 82728; 82746; 83010; 83540; 83550; 83615; 84153; 84403; 85025; 99213

== ENCOUNTER → 2025-06-13 09:57 | Outpatient (BNVA) | payer OTHER, SELFPAY | PROVIDERS: PCP Family Medicine; Visit Provider Nurse Practitioner | DX: S42.414D Nondisplaced simple supracondylar fracture without intercondylar fracture of right humerus, subsequent encounter for fracture with routine healing (principal); W19.XXXD Unspecified fall, subsequent encounter | CPT/HCPCS: 73080; 99024 ==